=== PATIENT | female | born 1940 | race Caucasian/White ===

== ENCOUNTER 2017-04-14 17:53 | Inpatient (IN) | payer MEDICARE, SELFPAY ==
[2017-04-14] VITALS (9 sets, daily range): BP systolic 118–154; BP diastolic 68–80; PULSE 59–83; RESP 14–23; TEMP 37.3–39.2; O2SAT 92–98; BMI 18.0; BMI 17.6
--- NOTE | 2017-04-14 18:30 | EKG12_ITS ---
Test Reason : AMS Blood Pressure : / mmHG Vent. Rate : 087 BPM Atrial Rate : 087 BPM P-R Int : 138 ms QRS Dur : 068 ms QT Int : 374 ms P-R-T Axes : 075 058 076 degrees QTc Int : 450 ms Normal sinus rhythm Normal ECG Confirmed by SRI RICHARDSON, SHAHRIAR ([id number]), editor managing director SONY CARABALLO ([id number] on 04/17/2017 2:57:41 PM Referred By: ROMERO Confirmed By:SHAHRIAR FIERRO MD
--- NOTE | 2017-04-14 18:32 | RAD_ITS ---
STUDY: X-RAY CHEST REASON FOR EXAM: Female, 77 years old. Cough and fever TECHNIQUE: AP portable COMPARISON: None. FINDINGS: The lungs are clear and expanded. There is a tiny calcified granuloma in left upper lobe. There is no demonstrated pleural abnormality. Normal size heart. Normal mediastinum and santosh. Normal visualized pulmonary arteries. Mildly calcified aortic arch and descending thoracic aorta. Dorsal spine demonstrates mild scoliosis and degenerative change.. Normal visualized ribs, clavicles, and shoulders. There is no demonstrated abnormality of the visualized soft tissue structures of the upper abdomen. RAD/Chest 1 View (Portable) IMPRESSION: No acute cardiopulmonary pathology Electronically Signed: Lino Rodriguez MD at 18:59 EST , Service support ,
[2017-04-14] MEDS: 0.9% Normal Saline 1,000 ML 999 ML IV (18:41)
[2017-04-14] MEDS: Acetaminophen 500 MG Tablet 1000 MG PO (18:41)
[2017-04-14] MEDS: 0.9% Normal Saline 1,000 ML 150 ML IV (18:46)
[2017-04-14 19:01] LABS: Absolute Lymphocyte Count 1.01 X10^3/ul (0.83-4.51); Absolute Neutrophil Count 1.8 X10^3/uL (2.0-7.7); Basophil# 0.02 X10^3/uL; Basophil% 0.6 % (0-1); Eosinophil# 0.01 X10^3/uL; Eosinophils% 0.3 % (0-5); Hematocrit 44.1 % (37-47); Hemoglobin 14.9 g/dl (12.0-15.0); Lymphocyte # 1.01 X10^3/ul (4.0); Lymphocyte % 29.7 % (19-41); Mean Corp Hgb Conc 33.8 g/gl (32-36); Mean Corpuscular Hgb 31.5 pg (27.0-32.0); Mean Corpuscular Volume 93.2 fL (81-99); Monocyte# 0.57 X10^3/uL; Monocyte% 16.8 % (0-10); Neutrophil # 1.79 X10^3/uL (2.7-7.7); Neutrophil % 52.6 % (47-70); Platelet Count 125 K/mm3 (150-450); RBC Distribution Width CV 14.8 % (11.6-14.6); RBC Distribution Width SD 49.8 fl (35.1-43.9); Red Blood Count 4.73 M/mm3 (4.2-5.4); White Blood Count 3.4 K/mm3 (4.4-11.0)
[2017-04-14 19:02] LABS: POSITIVE COUNT NO; POSITIVE DIFFERENTIAL NO; POSITIVE MORPHOLOGY NO
[2017-04-14 19:07] LABS: International Normalized Ratio 1.1; Prothrombin Time (Protime)PT. 14.1 SECONDS (11.7-14.9)
[2017-04-14 19:08] LABS: Partial Thromboplast Time 28.7 Seconds (24.1-36.2)
[2017-04-14 19:16] LABS: ALB/GLOB Ratio 1.2 RATIO (0.9-2.4); AST(SGOT) 26 U/L (15-37); Alanine Aminotransfer ALT/SGPT 40 U/L (13-56); Albumin, Serum 3.5 g/dL (3.2-5.0); Alkaline Phosphatase 62 U/L (45-117); Anion Gap 6 (5-15); BUN 14 mg/dL (7-18); BUN/Creat Ratio 17.5 RATIO (10-20); Calcium,Total 7.9 mg/dL (8.5-10.1); Chloride 102 mmol/L (98-107); EST Glomerular Filtration Rate 74 mL/min (>60); Est Glom Filt Rate - Afr Amer 90 mL/min (>60); Estimated Creatinine Clearance 45.68 ml/min; Globulin 2.9 g/dL (2.2-4.2); Glucose 89 mg/dL (74-106); Protein, Total 6.4 g/dL (6.4-8.2); Sodium Level 136 mmol/L (136-145)
[2017-04-14 19:33] LABS: Lactic Acid 1.2 mmol/L (0.4-2.0)
[2017-04-14 19:39] LABS: Bacteria 0 SEEN /hpf (None Seen); Mucous, Urine 0 SEEN /hpf (<or=2+); Squamous Epithelial Cells - UA 0 SEEN /hpf (5-10); White Blood Cells 0 SEEN /hpf (0-5)
[2017-04-14 19:45] LABS: Color, Urine Yellow (Yellow); Glucose, Dipstick Normal (Normal); Ketone-Dipstick Negative (Negative); Leukocyte Esterase-Dipstick Negative /ul (Negative); Nitrite-Dipstick Negative (Negative); Occult Blood-Urine 50 /ul (Negative); Protein-Dipstick Negative (Negative); Specific Gravity, Urine 1.005 (1.002-1.030); Urine Bilirubin Dipstick Negative (Negative); Urine Clarity Sl. Cloudy (Clear); Urine Urobilinogen Normal (Normal)
[2017-04-14 20:44] LABS: Red Blood Cells-Urine 0-5 SEEN /hpf (0-5)
--- NOTE | 2017-04-14 21:00 | ED.VISSUMM ---
- ER Visit Summary Date of Service: 04/14/17 Chief Complaint: Altered mental status History of Present Illness: The patient is a 77 F whose states was fine yesterday. However family states he was she was sleeping more yesterday developed a cough and runny nose. He came home from work today and found her very confused and hard to wake up on the couch. Patient recently placed on prednisone for some ankle swelling due to rheumatoid. She is also on Enbrel. Patient notes fever today rhinorrhea cough generalized myalgias headache. No nausea vomiting diarrhea. No urinary symptoms. She is a tobacco user. She has had significant weight loss over the past few months per the . Physical Examination: 101.9 heart rate 79 respirations are 18 pulse ox 90% on room air pressure 154/80 Gen: Well-nourished well-developed frail Head: Normocephalic atraumatic Eyes: Perrl EOMI ENT: TMs clear rhinorrhea moist mucous membranes Neck: Supple no lymphadenopathy no JVD nontender CVS: Regular rate rhythm no murmurs normal S1-S2 Respiratory: No distress clear to auscultation bilaterally chest nontender dry cough Abdomen: Soft nontender nondistended normal bowel sounds no masses Back: Nontender Extremity: Nontender no edema Skin: Normal color no rash Neuro: alert disorientated patient states it is 1980 CN II-XII intact normal strength sensation reflexes gait cerebellar Test Results: EKG shows a normal sinus rhythm at a rate of 87. Chest x-ray negative. White count 3.4. Chemistries negative liver negative lactic acid 1.2. Urinalysis normal. Flu negative Emergency Department Course and Treatment: Received IV fluids and Tylenol. Clinically this patient has influenza I will send off the serum test. We will await the blood cultures as she is immunosuppressed. Impression: 1. Viral syndrome 2. Altered mental status This note was generated with [employer] dictation software. It may contain incorrect words, spelling, and punctuation that were not noted in review of the chart prior to signing ED Disposition - Plan for ED Patient: Chief Complaint: Mental Status Change Referrals: Pancho Costello MD [Primary Care Provider] -
--- NOTE | 2017-04-14 21:18 | PCM.HP.STD ---
Problem List (1) Encephalopathy Status: Acute (2) Acute febrile illness Status: Acute (3) Osteoporosis Status: Chronic (4) Rheumatoid arthritis Status: Chronic History of Present Illness Date of Admission: 04/14/17 Chief Complaint: Confusion. The patient is a 77 year old F with past medical history as mentioned above presented to the emergency room because of confusion. At this time, patient is alert and oriented ?3. According to her , he came back from work this evening and found her on the chair, obtunded, lethargic and confused. He touched her head and she was very hot but he did not check her temperature. There was no reported complete loss of consciousness or focal deficit. Patient complained of dry cough that has been going on for few days without sputum production and without other associated symptoms. She denied chest pain or shortness of breath. She denied abdominal pain, nausea or vomiting. Denied constipation or diarrhea. She denied urinary symptoms. She had a history of rheumatoid arthritis and she has been on Enbrel injections for the last 3 years. Few days ago, she went to her PCPs office who started him on tapering course of prednisone for left foot pain and swelling for presumed acute arthritis. Today, she denies any left foot pain or swelling. In the emergency room, patient was febrile, blood pressure and heart rate are stable and her pulse ox was 98% on room air. When I interviewed the patient, she was alert and oriented ?3. She was coughing and seemed to have nasal congestion. Her routine blood work was remarkable for mild leukopenia with total white blood cell count of 3400. Absolute neutrophil count is 1800. Platelet count is 125,000. Her lactic acid was normal. LFT was unremarkable. Urinalysis was clean without evidence of acute cystitis. Chest x-ray showed no acute infiltrate, consolidation or effusion. She is being admitted for acute febrile illness, likely due to viral URTI/bronchitis, encephalopathy, leukopenia and thrombocytopenia. Past Medical History Past Medical History (Chronic Problems): Chronic Problems Osteoporosis (Chronic) Rheumatoid arthritis (Chronic) Allergies No Known Allergies Allergy (Verified 04/14/17 18:00) Home Medications: Ambulatory Orders Medication Instructions Recorded Alendronate Sodium [Fosamax] 70 mg PO Q7D@0700 04/14/17 Etanercept [Enbrel] 50 mg SQ Q7D 04/14/17 Prednisone 20 mg PO DAILY 04/14/17 Surgical History: cholecystectomy Psychiatric History: No pertinent psych hx [employer] History: No pertinent [employer] history Lives: Spouse/ Significant Other Smoking Status: Current every day smoker Alcohol: None Drugs: None - *Family History Maternal History Items: No pertinent history Paternal History Items: No pertinent history Review of Systems Constitutional: Reports: Fever, Weakness, Fatigue. Denies: Anorexia, Chills Eyes: Denies: Blurred vision, Drainage, Eyelid Inflammation, Redness HEENT: Reports: Nasal Congestion. Denies: Difficulty Hearing, Dysphasia, Ear Pain, Eye Pain, Sore Throat Cardiovascular: Denies: Chest Pain, Chest Pressure, Chest Tightness, Light Headedness, Palpitations, Syncope Respiratory: Reports: Cough. Denies: Pleuritic Pain, Shortness of Breath, Sputum production, Wheezing Gastrointestinal: Denies: Abdominal Pain, Constipation, Diarrhea, Nausea, Vomiting Genitourinary: Denies: Dysuria, Frequency, Hematuria Musculoskeletal: Denies: Arm Pain, Back Pain, Foot Pain Skin: Denies: Dryness, Rash Neurological: Reports: Confusion. Denies: Balance problems, Double vision, Change in Speech, Slurred speech, Focal weakness, Headaches, Incoordination, Numbness Psychiatric: Denies: Anxiety, Depression Endocrine: Denies: Change in Body Habitus, Polydipsia VTE Information - Inpt Only VTE Present on Admission: No VTE Mechan Device Prophylaxis: None VTE Pharm Prophylaxis ordered?: Yes Patient Problems: Active and Suspected Problems Encephalopathy (Acute) Acute febrile illness (Acute) - Physical Exam General: Alert, Oriented x3, Cooperative, No apparent distress HEENT: Atraumatic, PERRLA, EOMI Oral: Moist Mucosa, No Gingival or Mucosal Lesions/ Ulcerations Neck: Supple, No JVD, Negative Carotid Bruits, Thyroid Normal Size and Texture Lungs: Clear to auscultation, No rhonchi, No wheeze, No rales, Diminished Cardiovascular: Regular rate, Regular Rhythm, Normal S1, Normal S2, No murmurs, PMI Normal Abdomen: Bowel Sounds Present, Soft, Non Tender, Non-Distended, No Hepato-splenomegaly Extremities: No clubbing, No cyanosis, No edema Skin: No rashes, No breakdown Lymphatic: No Cervical, Supraclavicular, or Inguinal Adenopathy Neurological: Cranial nerves II-XII grossly intact, Motor Exam 5/5 strength throughout Psych/Mental Status: Normal Affect, Appropriate, Alert and oriented to time, place, person, mood and affect Vital Signs Temp Pulse Resp BP Pulse Ox 99.7 F H 69 18 123/72 H 95 04/14/17 20:17 04/14/17 21:07 04/14/17 21:07 04/14/17 21:07 04/14/17 21:07 Oxygen Flow Rate (L/min) 2 Oxygen Delivery Method Room Air Weight: 105 lb Body Mass Index (BMI) 18.0 Microbiology Past 72 Hours 04/14/17 18:50 Influenza Types A,B Direct FA (JOSE) - Final Mucosa - Nose Laboratory Tests Past 24 Hrs 04/14/17 04/14/17 04/14/17 18:30 18:30 18:30 WBC 3.4 L RBC 4.73 Hgb 14.9 Hct 44.1 MCV 93.2 MCH 31.5 MCHC 33.8 RDW 14.8 H RDW Differential 49.8 H Plt Count 125 L MPV 12.0 Immature Gran % (Auto) 0.000 Neut % (Auto) 52.6 Lymph % (Auto) 29.7 [place] % (Auto) 16.8 H Eos % (Auto) 0.3 Baso % (Auto) 0.6 Absolute Neuts (auto) 1.8 L Absolute Lymphs (auto) 1.01 Total Counted Not Reportable PT 14.1 INR 1.1 APTT 28.7 Sodium 136 Potassium 4.0 Chloride 102 Carbon Dioxide 28.0 Anion Gap 6 BUN 14 Creatinine 0.80 Estim Creat Clear Calc 45.68 Est GFR (MDRD) Af Amer 90 Est GFR (MDRD) Non-Af 74 BUN/Creatinine Ratio 17.5 Glucose 89 Lactic Acid Calcium 7.9 L Total Bilirubin 0.60 AST 26 ALT 40 Alkaline Phosphatase 62 Troponin I 0.03 Total Protein 6.4 Albumin 3.5 Globulin 2.9 Albumin/Globulin Ratio 1.2 Urine Color Urine Clarity Urine pH Ur Specific [place] Urine Protein Urine Glucose (UA) Urine Ketones Urine Occult Blood Urine Nitrite Urine Bilirubin Urine Urobilinogen Ur Leukocyte Esterase Urine RBC Urine WBC Ur Squamous Epith Cells Urine Bacteria Urine Mucus 04/14/17 04/14/17 18:50 19:30 WBC RBC Hgb Hct MCV MCH MCHC RDW RDW Differential Plt Count MPV Immature Gran % (Auto) Neut % (Auto) Lymph % (Auto) [place] % (Auto) Eos % (Auto) Baso % (Auto) Absolute Neuts (auto) Absolute Lymphs (auto) Total Counted PT INR APTT Sodium Potassium Chloride Carbon Dioxide Anion Gap BUN Creatinine Estim Creat Clear Calc Est GFR (MDRD) Af Amer Est GFR (MDRD) Non-Af BUN/Creatinine Ratio Glucose Lactic Acid 1.2 Calcium Total Bilirubin AST ALT Alkaline Phosphatase Troponin I Total Protein Albumin Globulin Albumin/Globulin Ratio Urine Color Yellow Urine Clarity Sl. Cloudy Urine pH 7.0 Ur Specific [place] 1.005 Urine Protein Negative Urine Glucose (UA) Normal Urine Ketones Negative Urine Occult Blood 50 H Urine Nitrite Negative Urine Bilirubin Negative Urine Urobilinogen Normal Ur Leukocyte Esterase Negative Urine RBC 0-5 SEEN Urine WBC 0 SEEN Ur Squamous Epith Cells 0 SEEN Urine Bacteria 0 SEEN Urine Mucus 0 SEEN Clinical Impression(s) from Imaging Studies Chest X-Ray 04/14/17 18:32 IMPRESSION: No acute cardiopulmonary pathology Electronically Signed: Lino Rodriguez MD at 18:59 EST , Service support , Assessment/Plan Active and Suspected Problems Encephalopathy (Acute) Acute febrile illness (Acute) This is a 77 years old female patient presented to the medicine because of confusion and subjective fever, had a history of rheumatoid arthritis and she has been on Enbrel injections, started recently on tapering prednisone and she was found to have leukopenia, thrombocytopenia and probable viral URTI/bronchitis. #1 acute febrile illness: Probably due to viral URTI/bronchitis. Nasal swab for influenza a and B were negative. Patient is immunocompromised because she has been on Enbrel injections for with arthritis as well as tapering prednisone that was started a few days ago.) Enbrel itself can cause upper respiratory tract infection. Lactic acid was normal. Chest x-ray showed no acute infiltrate. Urinalysis without evidence of UTI/acute cystitis. Blood culture drawn. Plan: Admit to [facility] floor for observation, IV fluids, Tylenol as needed, follow blood and urine cultures, respiratory panel for viruses, repeat CBC and BMP tomorrow morning, start IV Levaquin empirically, repeat chest x-ray tomorrow morning, PT OT evaluation and treatment. #2 encephalopathy: Likely metabolic encephalopathy because of above. At this time, she is alert and oriented ?3. Resolved. #3 leukopenia/thrombocytopenia: Probably due to Enbrel. She is leukopenic but her absolute neutrophil count is 1800, no evidence of neutropenia. Plan for empiric IV Levaquin, blood cultures and urine culture as above. #4 rheumatoid arthritis: At this time, she denied any joint pain, no more left foot pain. She was started on prednisone tapering course few days ago. At this time, no indication to start her on prednisone again. Plan to resume Enbrel injections upon discharge. #5 osteoporosis: Continue weekly Fosamax. #6 DVT prophylaxis: Subcu Lovenox, monitor platelet count. This note was generated with [employer] dictation software. It may contain incorrect words, spelling, and punctuation that were not noted in checking the note before signing. Code Visit OBSV E&M: 83342 Initial observation care L2
--- NOTE | 2017-04-14 21:32 | HP.PCM_ITS ---
Problem List (1) Encephalopathy Status: Acute (2) Acute febrile illness Status: Acute (3) Osteoporosis Status: Chronic (4) Rheumatoid arthritis Status: Chronic History of Present Illness Date of Admission: 04/14/17 Chief Complaint: Confusion. The patient is a 77 year old F with past medical history as mentioned above presented to the emergency room because of confusion. At this time, patient is alert and oriented ?3. According to her , he came back from work this evening and found her on the chair, obtunded, lethargic and confused. He touched her head and she was very hot but he did not check her temperature. There was no reported complete loss of consciousness or focal deficit. Patient complained of dry cough that has been going on for few days without sputum production and without other associated symptoms. She denied chest pain or shortness of breath. She denied abdominal pain, nausea or vomiting. Denied constipation or diarrhea. She denied urinary symptoms. She had a history of rheumatoid arthritis and she has been on Enbrel injections for the last 3 years. Few days ago, she went to her PCPs office who started him on tapering course of prednisone for left foot pain and swelling for presumed acute arthritis. Today, she denies any left foot pain or swelling. In the emergency room, patient was febrile, blood pressure and heart rate are stable and her pulse ox was 98% on room air. When I interviewed the patient, she was alert and oriented ?3. She was coughing and seemed to have nasal congestion. Her routine blood work was remarkable for mild leukopenia with total white blood cell count of 3400. Absolute neutrophil count is 1800. Platelet count is 125, 000. Her lactic acid was normal. LFT was unremarkable. Urinalysis was clean without evidence of acute cystitis. Chest x-ray showed no acute infiltrate, consolidation or effusion. She is being admitted for acute febrile illness, likely due to viral URTI/bronchitis, encephalopathy, leukopenia and thrombocytopenia. Past Medical History Past Medical History (Chronic Problems): Chronic Problems Osteoporosis (Chronic) Rheumatoid arthritis (Chronic) Allergies No Known Allergies Allergy (Verified 04/14/17 18:00) Home Medications: Ambulatory Orders Medication Instructions Recorded Alendronate Sodium [Fosamax] 70 mg PO Q7D@0700 04/14/17 Etanercept [Enbrel] 50 mg SQ Q7D 04/14/17 Prednisone 20 mg PO DAILY 04/14/17 Surgical History: cholecystectomy Psychiatric History: No pertinent psych hx [employer] History: No pertinent [employer] history Lives: Spouse/ Significant Other Smoking Status: Current every day smoker Alcohol: None Drugs: None - *Family History Maternal History Items: No pertinent history Paternal History Items: No pertinent history Review of Systems Constitutional: Reports: Fever, Weakness, Fatigue. Denies: Anorexia, Chills Eyes: Denies: Blurred vision, Drainage, Eyelid Inflammation, Redness HEENT: Reports: Nasal Congestion. Denies: Difficulty Hearing, Dysphasia, Ear Pain, Eye Pain, Sore Throat Cardiovascular: Denies: Chest Pain, Chest Pressure, Chest Tightness, Light Headedness, Palpitations, Syncope Respiratory: Reports: Cough. Denies: Pleuritic Pain, Shortness of Breath, Sputum production, Wheezing Gastrointestinal: Denies: Abdominal Pain, Constipation, Diarrhea, Nausea, Vomiting Genitourinary: Denies: Dysuria, Frequency, Hematuria Musculoskeletal: Denies: Arm Pain, Back Pain, Foot Pain Skin: Denies: Dryness, Rash Neurological: Reports: Confusion. Denies: Balance problems, Double vision, Change in Speech, Slurred speech, Focal weakness, Headaches, Incoordination, Numbness Psychiatric: Denies: Anxiety, Depression Endocrine: Denies: Change in Body Habitus, Polydipsia VTE Information - Inpt Only VTE Present on Admission: No VTE Mechan Device Prophylaxis: None VTE Pharm Prophylaxis ordered?: Yes Patient Problems: Active and Suspected Problems Encephalopathy (Acute) Acute febrile illness (Acute) - Physical Exam General: Alert, Oriented x3, Cooperative, No apparent distress HEENT: Atraumatic, PERRLA, EOMI Oral: Moist Mucosa, No Gingival or Mucosal Lesions/ Ulcerations Neck: Supple, No JVD, Negative Carotid Bruits, Thyroid Normal Size and Texture Lungs: Clear to auscultation, No rhonchi, No wheeze, No rales, Diminished Cardiovascular: Regular rate, Regular Rhythm, Normal S1, Normal S2, No murmurs, PMI Normal Abdomen: Bowel Sounds Present, Soft, Non Tender, Non-Distended, No Hepato- splenomegaly Extremities: No clubbing, No cyanosis, No edema Skin: No rashes, No breakdown Lymphatic: No Cervical, Supraclavicular, or Inguinal Adenopathy Neurological: Cranial nerves II-XII grossly intact, Motor Exam 5/5 strength throughout Psych/Mental Status: Normal Affect, Appropriate, Alert and oriented to time, place, person, mood and affect Vital Signs Temp Pulse Resp BP Pulse Ox 99.7 F H 69 18 123/72 H 95 04/14/17 20:17 04/14/17 21:07 04/14/17 21:07 04/14/17 21:07 04/14/17 21:07 Oxygen Flow Rate (L/min) 2 Oxygen Delivery Method Room Air Weight: 105 lb Body Mass Index (BMI) 18.0 Microbiology Past 72 Hours 04/14/17 18:50 Influenza Types A,B Direct FA (JOSE) - Final Mucosa - Nose Laboratory Tests Past 24 Hrs 04/14/17 04/14/17 04/14/17 18:30 18:30 18:30 WBC 3.4 L RBC 4.73 Hgb 14.9 Hct 44.1 MCV 93.2 MCH 31.5 MCHC 33.8 RDW 14.8 H RDW Differential 49.8 H Plt Count 125 L MPV 12.0 Immature Gran % (Auto) 0.000 Neut % (Auto) 52.6 Lymph % (Auto) 29.7 [place] % (Auto) 16.8 H Eos % (Auto) 0.3 Baso % (Auto) 0.6 Absolute Neuts (auto) 1.8 L Absolute Lymphs (auto) 1.01 Total Counted Not Reportable PT 14.1 INR 1.1 APTT 28.7 Sodium 136 Potassium 4.0 Chloride 102 Carbon Dioxide 28.0 Anion Gap 6 BUN 14 Creatinine 0.80 Estim Creat Clear Calc 45.68 Est GFR (MDRD) Af Amer 90 Est GFR (MDRD) Non-Af 74 BUN/Creatinine Ratio 17.5 Glucose 89 Lactic Acid Calcium 7.9 L Total Bilirubin 0.60 AST 26 ALT 40 Alkaline Phosphatase 62 Troponin I 0.03 Total Protein 6.4 Albumin 3.5 Globulin 2.9 Albumin/Globulin Ratio 1.2 Urine Color Urine Clarity Urine pH Ur Specific [place] Urine Protein Urine Glucose (UA) Urine Ketones Urine Occult Blood Urine Nitrite Urine Bilirubin Urine Urobilinogen Ur Leukocyte Esterase Urine RBC Urine WBC Ur Squamous Epith Cells Urine Bacteria Urine Mucus 04/14/17 04/14/17 18:50 19:30 WBC RBC Hgb Hct MCV MCH MCHC RDW RDW Differential Plt Count MPV Immature Gran % (Auto) Neut % (Auto) Lymph % (Auto) [place] % (Auto) Eos % (Auto) Baso % (Auto) Absolute Neuts (auto) Absolute Lymphs (auto) Total Counted PT INR APTT Sodium Potassium Chloride Carbon Dioxide Anion Gap BUN Creatinine Estim Creat Clear Calc Est GFR (MDRD) Af Amer Est GFR (MDRD) Non-Af BUN/Creatinine Ratio Glucose Lactic Acid 1.2 Calcium Total Bilirubin AST ALT Alkaline Phosphatase Troponin I Total Protein Albumin Globulin Albumin/Globulin Ratio Urine Color Yellow Urine Clarity Sl. Cloudy Urine pH 7.0 Ur Specific [place] 1.005 Urine Protein Negative Urine Glucose (UA) Normal Urine Ketones Negative Urine Occult Blood 50 H Urine Nitrite Negative Urine Bilirubin Negative Urine Urobilinogen Normal Ur Leukocyte Esterase Negative Urine RBC 0-5 SEEN Urine WBC 0 SEEN Ur Squamous Epith Cells 0 SEEN Urine Bacteria 0 SEEN Urine Mucus 0 SEEN Clinical Impression(s) from Imaging Studies Chest X-Ray 04/14/17 18:32 IMPRESSION: No acute cardiopulmonary pathology Electronically Signed: Lino Rodriguez MD at 18:59 EST , Service support , Assessment/Plan Active and Suspected Problems Encephalopathy (Acute) Acute febrile illness (Acute) This is a 77 years old female patient presented to the medicine because of confusion and subjective fever, had a history of rheumatoid arthritis and she has been on Enbrel injections, started recently on tapering prednisone and she was found to have leukopenia, thrombocytopenia and probable viral URTI/ bronchitis. #1 acute febrile illness: Probably due to viral URTI/bronchitis. Nasal swab for influenza a and B were negative. Patient is immunocompromised because she has been on Enbrel injections for with arthritis as well as tapering prednisone that was started a few days ago.) Enbrel itself can cause upper respiratory tract infection. Lactic acid was normal. Chest x-ray showed no acute infiltrate. Urinalysis without evidence of UTI/acute cystitis. Blood culture drawn. Plan: Admit to [facility] floor for observation, IV fluids, Tylenol as needed, follow blood and urine cultures, respiratory panel for viruses, repeat CBC and BMP tomorrow morning, start IV Levaquin empirically, repeat chest x-ray tomorrow morning, PT OT evaluation and treatment. #2 encephalopathy: Likely metabolic encephalopathy because of above. At this time, she is alert and oriented ?3. Resolved. #3 leukopenia/thrombocytopenia: Probably due to Enbrel. She is leukopenic but her absolute neutrophil count is 1800, no evidence of neutropenia. Plan for empiric IV Levaquin, blood cultures and urine culture as above. #4 rheumatoid arthritis: At this time, she denied any joint pain, no more left foot pain. She was started on prednisone tapering course few days ago. At this time, no indication to start her on prednisone again. Plan to resume Enbrel injections upon discharge. #5 osteoporosis: Continue weekly Fosamax. #6 DVT prophylaxis: Subcu Lovenox, monitor platelet count. This note was generated with [employer] dictation software. It may contain incorrect words, spelling, and punctuation that were not noted in checking the note before signing. Code Visit OBSV E&M: 15179 Initial observation care L2
[2017-04-14] MEDS: 0.9% Normal Saline 1,000 ML 75 ML IV (21:55)
--- NOTE | 2017-04-14 23:47 | NURSING ---
Spoke with Nel, Nursing Storage Battery Tester. She is aware that order for cardiac tele is in computer. She verified that pt originally had an order for PCU but then it was changed to med-surg. Will get this order clarified when able.
[2017-04-15] VITALS (12 sets, daily range): BP systolic 141–160; BP diastolic 57–93; PULSE 70–110; RESP 16–18; TEMP 37–37.7; O2SAT 32–98
[2017-04-15] MEDS: Acetaminophen 325 MG Tablet 650 MG PO (05:30)
[2017-04-15 05:50] LABS: Absolute Lymphocyte Count 0.84 X10^3/ul (0.83-4.51); Absolute Neutrophil Count 0.8 X10^3/uL (2.0-7.7); Basophil# 0.01 X10^3/uL; Basophil% 0.5 % (0-1); Hematocrit 39.2 % (37-47); Hemoglobin 13.2 g/dl (12.0-15.0); Lymphocyte # 0.84 X10^3/ul (4.0); Lymphocyte % 39.8 % (19-41); Mean Corp Hgb Conc 33.7 g/gl (32-36); Mean Corpuscular Hgb 31.2 pg (27.0-32.0); Mean Corpuscular Volume 92.7 fL (81-99); Mean Platelet Vol. 11.1 fl (6.2-12.0); Monocyte# 0.44 X10^3/uL; Monocyte% 20.9 % (0-10); Neutrophil # 0.82 X10^3/uL (2.7-7.7); Neutrophil % 38.8 % (47-70); Platelet Count 117 K/mm3 (150-450); RBC Distribution Width CV 14.9 % (11.6-14.6); RBC Distribution Width SD 50.3 fl (35.1-43.9); Red Blood Count 4.23 M/mm3 (4.2-5.4); White Blood Count 2.1 K/mm3 (4.4-11.0)
--- NOTE | 2017-04-15 05:55 | RAD_ITS ---
STUDY: X-RAY CHEST REASON FOR EXAM: Female, 77 years old. Fever. TECHNIQUE: Single AP portable view of the chest. COMPARISON: Comparison is made with prior study dated April 14, 2017. FINDINGS: EKG electrodes are seen. Hyperinflation. Scattered calcified granulomas. There is no demonstrated pleural abnormality. Normal size heart. Normal mediastinum and santosh. Normal visualized pulmonary arteries. There is atherosclerotic calcification of the aortic arch with tortuosity. Normal visualized thoracic spine. Normal visualized ribs, clavicles, and shoulders. There is no demonstrated abnormality of the visualized soft tissue structures of the upper abdomen. RAD/Chest 1 View (Portable) IMPRESSION: Hyperinflation. No acute abnormality is seen. Electronically Signed: Pete Bustamante MD at 8:30 EST Tel [phone], Service support ,
[2017-04-15 06:05] LABS: Anion Gap 7 (5-15); BUN 13 mg/dL (7-18); BUN/Creat Ratio 18.5 RATIO (10-20); Calcium,Total 7.9 mg/dL (8.5-10.1); Chloride 107 mmol/L (98-107); EST Glomerular Filtration Rate 86 mL/min (>60); Est Glom Filt Rate - Afr Amer 104 mL/min (>60); Estimated Creatinine Clearance 33.46 ml/min; Glucose 88 mg/dL (74-106); Potassium 3.8 mmol/L (3.5-5.1); Sodium Level 139 mmol/L (136-145)
[2017-04-15 06:16] LABS: Differential Indicated SCAN CRITERIA MET; POSITIVE COUNT NO; POSITIVE DIFFERENTIAL YES; POSITIVE MORPHOLOGY NO
[2017-04-15 06:23] LABS: Differential Comment SCANNED
--- NOTE | 2017-04-15 07:15 | PN_ITS ---
Patient Problems: Active and Suspected Problems Encephalopathy (Acute) Acute febrile illness (Acute) Subjective: Patient was seen and examined. No acute events overnight. T-Max over the last 24 hours is 102.6F. States she feels better. Denied any worsening shortness of breath, chest pain or dizziness. Objective: Physical Exam General: Alert, Oriented x3, Cooperative, No apparent distress, has intermittent coughing spells HEENT: Atraumatic, PERRLA, EOMI Oral: Moist Mucosa, No Gingival or Mucosal Lesions/ Ulcerations Neck: Supple, No JVD, Negative Carotid Bruits, Thyroid Normal Size and Texture Lungs: Clear to auscultation, No rhonchi, No wheeze, No rales, Diminished Cardiovascular: Regular rate, Regular Rhythm, Normal S1, Normal S2, No murmurs, PMI Normal Abdomen: Bowel Sounds Present, Soft, Non Tender, Non-Distended, No Hepato- splenomegaly Extremities: No clubbing, No cyanosis, No edema Skin: No rashes, No breakdown Lymphatic: No Cervical, Supraclavicular, or Inguinal Adenopathy Neurological: Cranial nerves II-XII grossly intact, Motor Exam 5/5 strength throughout Psych/Mental Status: Normal Affect, Appropriate, Alert and oriented to time, place, person, mood and affect Vitals/I&O's: Vital Signs Temp Pulse Resp BP Pulse Ox 99.9 F H 78 16 141/57 H 93 04/15/17 05:18 04/15/17 05:18 04/15/17 05:18 04/15/17 05:18 04/15/17 05:18 Oxygen Delivery Method Room Air Weight: 43.6 kg Body Mass Index (BMI) 17.6 Intake and Output for Last 24 Hours 04/13/17 04/14/17 04/15/17 23:59 23:59 23:59 Intake Total 391 / 391 Balance 391 / 391 Laboratory Results 04/15/17 05:31: WBC 2.1 L, RBC 4.23, Hgb 13.2, Hct 39.2, MCV 92.7, MCH 31.2, MCHC 33.7, RDW 14.9 H, RDW Differential 50.3 H, Plt Count 117 L, MPV 11.1, Immature Gran % (Auto) 0.000, Neut % (Auto) 38.8 L, Lymph % (Auto) 39.8, [place] % (Auto) 20.9 H, Eos % (Auto) 0.0, Baso % (Auto) 0.5, Absolute Neuts (auto) 0.8 L , Absolute Lymphs (auto) 0.84, Total Counted Not Reportable, Differential Comment SCANNED 04/15/17 05:31: Sodium 139, Potassium 3.8, Chloride 107, Carbon Dioxide 25.0, Anion Gap 7, BUN 13, Creatinine 0.70, Estim Creat Clear Calc 33.46, Est GFR ( MDRD) Af Amer 104, Est GFR (MDRD) Non-Af 86, BUN/Creatinine Ratio 18.5, Glucose 88, Calcium 7.9 L Current Medications Acetaminophen (Tylenol) 650 mg PO Q6H PRN PRN PRN Reason: Fever, headache, pain Last Admin: 04/15/17 05:30 Dose: 325 mg Enoxaparin Sodium (Lovenox) 40 mg SC DAILY@1000 LATRICE Guaifenesin (Robitussin) 10 ml PO Q6H PRN PRN PRN Reason: COUGH/CONGESTION Sodium Chloride () 1,000 mls @ 75 mls/hr IV .[id number] [facility] Last Admin: 04/14/17 21:55 Dose: 75 mls/hr Levofloxacin (Levaquin) 750 mg in 150 mls @ 100 mls/hr IV Q48 [facility] Last Admin: 04/15/17 00:12 Dose: 100 mls/hr Magnesium Hydroxide (Milk Of Magnesia) 30 ml PO DAILY PRN PRN PRN Reason: Constipation Nutritional Formula (Lactose Free) (Ensure Enlive) 120 ml PO 4X/DAY [facility] Ondansetron HCl (Zofran) 4 mg IV Q8H PRN PRN PRN Reason: NAUSEA/VOMITING Sodium Chloride () 5 - 30 ml IV UD PRN PRN Reason: SALINE FLUSH Assessment/Plan Active and Suspected Problems Encephalopathy (Acute) Acute febrile illness (Acute) 77 years old female patient admitted with fever, cough and managed as viral URTI /bronchitis. 1. Fever secondary to acute influenza B, immunocompromise patient, patient is in droplet isolation, influenza screen was negative for influenza, respiratory panel showed influenza B, repeat chest x-ray shows no infiltrates, start Tamiflu , breathing treatments as needed. 2. Metabolic encephalopathy secondary to #1, resolved 3. Pancytopenia, likely related to current illness vs Enbrel, ANC 800, blood cultures are pending, will continue to monitor. 4. Rheumatoid arthritis, stable. 5. Osteoporosis, on Fosamax. 6. DVT prophylaxis- SCDs Code Visit Inpatient E&M: 72644 Subs Hosp L3
[2017-04-15] MEDS: 0.9% Normal Saline 1,000 ML 75 ML IV ×2 (08:12→23:46)
[2017-04-15] MEDS: Folic Acid 1 MG Tablet PO (09:19)
[2017-04-15] MEDS: Oseltamivir Phosphate 75 MG Capsule PO (12:32)
--- NOTE | 2017-04-15 14:20 | NURSING ---
Student nurse documentation reviewed by this RN.
[2017-04-15] MEDS: OSELTAMIVIR PHOSPHATE 6 MG/ML BOTTLE 75 MG PO (23:45)
[2017-04-16 02:59] VITALS: PULSE 84
[2017-04-16 04:28] VITALS: BP 152/74; PULSE 84; RESP 12; TEMP 37.3; O2SAT 92
[2017-04-16 06:57] LABS: Absolute Lymphocyte Count 1.17 X10^3/ul (0.83-4.51); Absolute Neutrophil Count 0.8 X10^3/uL (2.0-7.7); Basophil# 0.02 X10^3/uL; Basophil% 0.8 % (0-1); Hematocrit 39.6 % (37-47); Hemoglobin 13.8 g/dl (12.0-15.0); Lymphocyte # 1.17 X10^3/ul (4.0); Lymphocyte % 46.6 % (19-41); Mean Corp Hgb Conc 34.8 g/gl (32-36); Mean Corpuscular Hgb 31.8 pg (27.0-32.0); Mean Corpuscular Volume 91.2 fL (81-99); Monocyte# 0.54 X10^3/uL; Monocyte% 21.5 % (0-10); Neutrophil # 0.78 X10^3/uL (2.7-7.7); Neutrophil % 31.1 % (47-70); Platelet Count 107 K/mm3 (150-450); RBC Distribution Width CV 14.8 % (11.6-14.6); RBC Distribution Width SD 47.9 fl (35.1-43.9); Red Blood Count 4.34 M/mm3 (4.2-5.4); White Blood Count 2.5 K/mm3 (4.4-11.0)
[2017-04-16 07:03] LABS: Differential Indicated SCAN CRITERIA MET; POSITIVE COUNT NO; POSITIVE DIFFERENTIAL YES; POSITIVE MORPHOLOGY NO
[2017-04-16 07:22] LABS: Anion Gap 9 (5-15); BUN 10 mg/dL (7-18); Calcium,Total 8.1 mg/dL (8.5-10.1); Chloride 102 mmol/L (98-107); Creatinine, Serum 0.56 mg/dL (0.55-1.02); EST Glomerular Filtration Rate 113 mL/min (>60); Est Glom Filt Rate - Afr Amer 137 mL/min (>60); Estimated Creatinine Clearance 33.46 ml/min; Glucose 93 mg/dL (74-106); Potassium 3.4 mmol/L (3.5-5.1); Sodium Level 135 mmol/L (136-145)
[2017-04-16 07:32] LABS: Platelet Estimate SLT DEC (ADEQ)
[2017-04-16 07:33] LABS: Platelet Morphology LARGE
[2017-04-16 08:42] VITALS: BP 143/85; PULSE 66; RESP 18; TEMP 36.9; O2SAT 93
--- NOTE | 2017-04-16 08:53 | PCM.DC ---
- Discharge Diagnoses Current Active Problems: Current Active and Chronic Problems Encephalopathy (Acute) Acute febrile illness (Acute) Osteoporosis (Chronic) Rheumatoid arthritis (Chronic) Reason(s) for Visit for Discharge Instructions: fever, confusion You will use the following diet at home:: Regular Your food should be the consistency of: Regular Your liquids should be the consistency of: Regular/Thin Discharge Activity: Return to Normal Activity Allergies/Adverse Reactions: Allergies No Known Allergies Allergy (Verified 04/14/17 18:00) Medications to take at Discharge Alendronate Sodium [Fosamax] 70 mg PO Q7D@0700 04/14/17 Etanercept [Enbrel] 50 mg SQ Q7D 04/14/17 Folic Acid 1 mg PO DAILY 04/14/17 Methotrexate 8 tab QWEEK 04/14/17 Acetaminophen [Tylenol Tablet] 650 mg PO Q6H PRN PRN tablet 04/16/17 Ensure Enlive 120 ml PO 4X/DAY #100 liquid 04/16/17 Oseltamivir Phosphate [Tamiflu Susp] 75 mg PO BID #8 bottle 04/16/17 The following prescriptions were given: Oseltamivir Phosphate [Tamiflu Susp] 75 mg PO BID #8 bottle Ensure Enlive 120 ml PO 4X/DAY #100 liquid Primary Care Physician: Pancho Costello MD [Primary Care Provider] - Please follow up with your Primary Care Physician in: within 2 weeks Proposed Discharge Date: 04/16/17
[2017-04-16 08:56] VITALS: PULSE 64; O2SAT 93
--- NOTE | 2017-04-16 08:56 | DS.PCM_ITS ---
Discharge Date and Diagnosis - Problem List Patient Problems: Active and Suspected Problems Encephalopathy (Acute) Acute febrile illness (Acute) Date of Admission: 04/14/17 Date of Discharge: 04/16/17 - Primary Discharge Diagnosis Active and Suspected Problems Encephalopathy (Acute) Acute Influenza A - Secondary Discharge Diagnosis Chronic Problems Osteoporosis (Chronic) Rheumatoid arthritis (Chronic) Hospital Course and Treatment Imaging Results: Clinical Impression(s) from Imaging Studies Chest X-Ray 04/14/17 18:32 IMPRESSION: No acute cardiopulmonary pathology Electronically Signed: Lino Rodriguez MD at 18:59 EST , Service support , Chest X-Ray 04/15/17 05:55 IMPRESSION: Hyperinflation. No acute abnormality is seen. Electronically Signed: Pete Bustamante MD at 8:30 EST Tel [phone], Service support , None Operations: None Procedures: None Summary of Care Provided: 77 years old female patient admitted with fever, confusion, cough, running nose and managed as acute influenza B. Patient was found in the ED to have a temperature of 101.9F. 1. Fever secondary to acute Influenza B, patient is immunocompromised because history of RA, on Enbrel, methotrexate and recently completed 1 week of steroids. Patient was managed in droplet isolation, influenza screen was negative for influenza, but respiratory panel showed influenza B, repeat chest x -ray shows no infiltrates, started on Tamiflu, breathing treatments as needed, she improved and was discharged. 2. Metabolic encephalopathy secondary to #1, resolved 3. Pancytopenia,ANC was 1800 on admission and later 800. Patient was advised to follow-up with PCP to have CBCD done within 1 week. 4. Rheumatoid arthritis, continue on home meds 5. Osteoporosis, on Fosamax. Discharge Diet: No Restrictions Discharge Activity: Return to Normal Activity Home Medications: Medications to take at Discharge Alendronate Sodium [Fosamax] 70 mg PO Q7D@0700 04/14/17 Etanercept [Enbrel] 50 mg SQ Q7D 04/14/17 Folic Acid 1 mg PO DAILY 04/14/17 Methotrexate 8 tab QWEEK 04/14/17 Acetaminophen [Tylenol Tablet] 650 mg PO Q6H PRN PRN tablet 04/16/17 Ensure Enlive 120 ml PO 4X/DAY #100 liquid 04/16/17 Oseltamivir Phosphate [Tamiflu Susp] 75 mg PO BID #8 bottle 04/16/17 Following Prescrptions Were Given to Patient: Oseltamivir Phosphate [Tamiflu Susp] 75 mg PO BID #8 bottle Ensure Enlive 120 ml PO 4X/DAY #100 liquid Primary Care Physician: Pancho Costello MD [Primary Care Provider] - Please follow up with your Primary Care Physician in: within 2 weeks Disposition: Home Minutes spent on discharge:: 25 Patient Condition:: Stable Meaningful Use Info Meaningful Use Diagnoses (Choose all that apply): None applicable Code Visit Inpatient E&M: 79013 Disch Hosp
[2017-04-16] MEDS: Folic Acid 1 MG Tablet PO (08:57)
--- NOTE | 2017-04-16 09:45 | CASEMGMT ---
See RN CM assessment link. Pt states she is independent, no DME use. Plan is to return home with 's support. Konrad PACHECO RN ACM
--- NOTE | 2017-04-16 10:57 | NURSING ---
unable to find the tamiflu that was sent [place] previously[place] [facility] [place], she returned call but [place] [facility] [place] not return call at this time as she is probably sleeping. pharmacy notified to send second bottle
[2017-04-16 11:00] VITALS: PULSE 67
[2017-04-16] MEDS: OSELTAMIVIR PHOSPHATE 6 MG/ML BOTTLE 75 MG PO (13:20)
[2017-04-16 14:45] VITALS: BP 154/74; PULSE 86; RESP 16; TEMP 37; O2SAT 93
== END 2017-04-16 16:48 | disposition home or self-care (01) | DRG 193 ==
LOC: ED 19:45 → PCU 21:25 → MS3 22:03 → PCU 04-15 08:47 → MS3 04-15 08:52
PROVIDERS: Admitting Provider Hospitalist; Emergency Provider Emergency Medicine; Family Provider Family Medicine; PCP Family Medicine; Visit Provider Internal Medicine
DX: J10.1 Influenza due to other identified influenza virus with other respiratory manifestations (principal); D61.811 Other drug-induced pancytopenia; M06.9 Rheumatoid arthritis, unspecified; J10.81 Influenza due to other identified influenza virus with encephalopathy; F17.200 Nicotine dependence, unspecified, uncomplicated; M81.0 Age-related osteoporosis without current pathological fracture; Z79.83 Long term (current) use of bisphosphonates
CPT/HCPCS: 36415; 71045; 80048; 80053; 81001; 83605; 84484; 85025; 85610; 85730; 87040; 87086; 87633; 87804; 93005; 97162; 97165; 97802; 99285; 99406; J7030; A4216

== ENCOUNTER → 2017-11-20 09:52 | Outpatient (CLI) | payer MEDICARE, SELFPAY ==
[2017-11-20 12:39] LABS: Absolute Lymphocyte Count 2.48 X10^3/ul (0.83-4.51); Absolute Neutrophil Count 2.9 X10^3/uL (2.0-7.7); Basophil# 0.03 X10^3/uL; Basophil% 0.5 % (0-1); Eosinophil# 0.18 X10^3/uL; Eosinophils% 2.9 % (0-5); Hematocrit 46.3 % (37-47); Hemoglobin 15.3 g/dl (12.0-15.0); Lymphocyte # 2.48 X10^3/ul (4.0); Lymphocyte % 40.5 % (19-41); Mean Corpuscular Hgb 31.4 pg (27.0-32.0); Mean Corpuscular Volume 95.1 fL (81-99); Mean Platelet Vol. 11.2 fl (6.2-12.0); Monocyte% 8.2 % (0-10); Neutrophil # 2.92 X10^3/uL (2.7-7.7); Neutrophil % 47.7 % (47-70); Platelet Count 175 K/mm3 (150-450); RBC Distribution Width CV 13.9 % (11.6-14.6); RBC Distribution Width SD 47.9 fl (35.1-43.9); Red Blood Count 4.87 M/mm3 (4.2-5.4); White Blood Count 6.1 K/mm3 (4.4-11.0)
[2017-11-20 12:40] LABS: POSITIVE COUNT NO; POSITIVE DIFFERENTIAL NO; POSITIVE MORPHOLOGY NO
[2017-11-20 12:49] LABS: ALB/GLOB Ratio 1.1 RATIO (0.9-2.4); AST(SGOT) 13 U/L (15-37); Alanine Aminotransfer ALT/SGPT 22 U/L (13-56); Albumin, Serum 3.8 g/dL (3.2-5.0); Alkaline Phosphatase 69 U/L (45-117); Anion Gap 5 (5-15); BUN 17 mg/dL (7-18); BUN/Creat Ratio 19.9 RATIO (10-20); Calcium,Total 9.6 mg/dL (8.5-10.1); Chloride 108 mmol/L (98-107); Creatinine, Serum 0.86 mg/dL (0.55-1.02); EST Glomerular Filtration Rate 69 mL/min (>60); Est Glom Filt Rate - Afr Amer 83 mL/min (>60); Globulin 3.5 g/dL (2.2-4.2); Glucose 106 mg/dL (74-106); Potassium 4.8 mmol/L (3.5-5.1); Protein, Total 7.3 g/dL (6.4-8.2); Sodium Level 142 mmol/L (136-145)
[2017-11-24 11:51] LABS: CCP IgG Antibodies > 250 units (0-19); HEPATITIS B SURFACE AG Negative (Negative); Hep B Surface Antibodies Non Reactive (.); Hep C Antibodies <0.1 s/co ratio (0.0-0.9)
== END ==
PROVIDERS: Family Provider Family Medicine; PCP Family Medicine; Referring Provider Internal Medicine Rheumatology; Visit Provider Internal Medicine Rheumatology
DX: M05.79 Rheumatoid arthritis with rheumatoid factor of multiple sites without organ or systems involvement (principal); M81.0 Age-related osteoporosis without current pathological fracture; Z79.899 Other long term (current) drug therapy
CPT/HCPCS: 36415; 80053; 85025; 86200; 86431; 86706; 86803; 87340

== ENCOUNTER → 2018-03-15 09:09 | Outpatient (CLI) | payer MEDICARE, SELFPAY ==
[2018-03-15 10:20] LABS: Absolute Lymphocyte Count 1.79 X10^3/ul (0.83-4.51); Absolute Neutrophil Count 2.6 X10^3/uL (2.0-7.7); Basophil# 0.01 X10^3/uL; Basophil% 0.2 % (0-1); Eosinophil# 0.12 X10^3/uL; Eosinophils% 2.4 % (0-5); Hematocrit 44.5 % (37-47); Lymphocyte # 1.79 X10^3/ul (4.0); Lymphocyte % 35.7 % (19-41); Mean Corp Hgb Conc 33.7 g/gl (32-36); Mean Corpuscular Hgb 31.8 pg (27.0-32.0); Mean Corpuscular Volume 94.5 fL (81-99); Mean Platelet Vol. 11.4 fl (6.2-12.0); Neutrophil # 2.58 X10^3/uL (2.7-7.7); Neutrophil % 51.5 % (47-70); Platelet Count 162 K/mm3 (150-450); RBC Distribution Width SD 46.1 fl (35.1-43.9); Red Blood Count 4.71 M/mm3 (4.2-5.4)
[2018-03-15 10:21] LABS: POSITIVE COUNT NO; POSITIVE DIFFERENTIAL NO; POSITIVE MORPHOLOGY NO
[2018-03-15 10:34] LABS: ALB/GLOB Ratio 1.1 RATIO (0.9-2.4); AST(SGOT) 19 U/L (15-37); Alanine Aminotransfer ALT/SGPT 20 U/L (13-56); Albumin, Serum 3.7 g/dL (3.2-5.0); Alkaline Phosphatase 71 U/L (45-117); Anion Gap 5 (5-15); BUN 17 mg/dL (7-18); BUN/Creat Ratio 21.4 RATIO (10-20); Calcium,Total 9.1 mg/dL (8.5-10.1); Chloride 109 mmol/L (98-107); EST Glomerular Filtration Rate 75 mL/min (>60); Est Glom Filt Rate - Afr Amer 90 mL/min (>60); Globulin 3.3 g/dL (2.2-4.2); Glucose 104 mg/dL (74-106); Potassium 4.2 mmol/L (3.5-5.1); Sodium Level 141 mmol/L (136-145)
== END ==
PROVIDERS: Family Provider Family Medicine; PCP Family Medicine; Referring Provider Internal Medicine Rheumatology; Visit Provider Internal Medicine Rheumatology
DX: M06.09 Rheumatoid arthritis without rheumatoid factor, multiple sites (principal); M81.0 Age-related osteoporosis without current pathological fracture; J44.9 Chronic obstructive pulmonary disease, unspecified; I10 Essential (primary) hypertension; K57.90 Diverticulosis of intestine, part unspecified, without perforation or abscess without bleeding; N20.0 Calculus of kidney; Z79.899 Other long term (current) drug therapy
CPT/HCPCS: 36415; 80053; 85025

== ENCOUNTER → 2018-06-07 | Outpatient (CLI) | payer MEDICARE, SELFPAY ==
[2017-04-14 21:57] VITALS: BMI 17.6
[2018-06-07 13:59] LABS: Absolute Lymphocyte Count 3.02 X10^3/ul (0.83-4.51); Absolute Neutrophil Count 2.6 X10^3/uL (2.0-7.7); Basophil# 0.02 X10^3/uL; Basophil% 0.3 % (0-1); Eosinophil# 0.14 X10^3/uL; Eosinophils% 2.2 % (0-5); Hematocrit 45.8 % (37-47); Hemoglobin 15.6 g/dl (12.0-15.0); Lymphocyte # 3.02 X10^3/ul (4.0); Mean Corp Hgb Conc 34.1 g/gl (32-36); Mean Corpuscular Hgb 31.6 pg (27.0-32.0); Mean Corpuscular Volume 92.7 fL (81-99); Mean Platelet Vol. 11.4 fl (6.2-12.0); Monocyte# 0.51 X10^3/uL; Monocyte% 8.1 % (0-10); Neutrophil # 2.59 X10^3/uL (2.7-7.7); Neutrophil % 41.2 % (47-70); Platelet Count 178 K/mm3 (150-450); RBC Distribution Width CV 14.7 % (11.6-14.6); RBC Distribution Width SD 47.5 fl (35.1-43.9); Red Blood Count 4.94 M/mm3 (4.2-5.4); White Blood Count 6.3 K/mm3 (4.4-11.0)
[2018-06-07 14:16] LABS: POSITIVE COUNT NO; POSITIVE DIFFERENTIAL NO; POSITIVE MORPHOLOGY NO
[2018-06-07 14:26] LABS: ALB/GLOB Ratio 1.2 RATIO (0.9-2.4); AST(SGOT) 20 U/L (15-37); Alanine Aminotransfer ALT/SGPT 21 U/L (13-56); Alkaline Phosphatase 71 U/L (45-117); Anion Gap 5 (5-15); BUN 16 mg/dL (7-18); BUN/Creat Ratio 20.1 RATIO (10-20); Calcium,Total 9.6 mg/dL (8.5-10.1); Chloride 107 mmol/L (98-107); EST Glomerular Filtration Rate 74 mL/min (>60); Est Glom Filt Rate - Afr Amer 90 mL/min (>60); Globulin 3.3 g/dL (2.2-4.2); Glucose 94 mg/dL (74-106); Protein, Total 7.3 g/dL (6.4-8.2); Sodium Level 140 mmol/L (136-145)
== END | disposition home or self-care (01) ==
LOC: MTLAB 11:33
PROVIDERS: Family Provider Family Medicine; PCP Family Medicine; Referring Provider Internal Medicine Rheumatology; Visit Provider Internal Medicine Rheumatology
DX: M06.09 Rheumatoid arthritis without rheumatoid factor, multiple sites (principal); M81.0 Age-related osteoporosis without current pathological fracture; J44.9 Chronic obstructive pulmonary disease, unspecified; I10 Essential (primary) hypertension; K57.90 Diverticulosis of intestine, part unspecified, without perforation or abscess without bleeding; N20.0 Calculus of kidney; Z79.899 Other long term (current) drug therapy
CPT/HCPCS: 36415; 80053; 85025

== ENCOUNTER → 2018-08-30 | Outpatient (CLI) | payer MEDICARE, SELFPAY ==
[2017-04-14 21:57] VITALS: BMI 17.6
[2018-08-30 12:16] LABS: Absolute Lymphocyte Count 2.89 X10^3/uL (0.83-4.51); Absolute Neutrophil Count 2.6 X10^3/uL (2.0-7.7); Basophil# 0.04 X10^3/uL; Basophil% 0.6 % (0-1); Eosinophil# 0.16 X10^3/uL; Eosinophils% 2.6 % (0-5); Hematocrit 45.6 % (37-47); Hemoglobin 15.3 g/dL (12.0-15.0); Lymphocyte # 2.89 X10^3/ul (4.0); Lymphocyte % 46.3 % (19-41); Mean Corp Hgb Conc 33.6 g/dL (32-36); Mean Corpuscular Hgb 32.3 pg (27.0-32.0); Mean Corpuscular Volume 96.4 fL (81-99); Mean Platelet Vol. 11.9 fl (6.2-12.0); Monocyte# 0.56 X10^3/uL; NRBC Flagged by Analyzer 0 % (0-5); Neutrophil # 2.57 X10^3/uL (2.7-7.7); Neutrophil % 41.2 % (47-70); Platelet Count 181 K/mm3 (150-450); RBC Distribution Width CV 13.6 % (11.6-14.6); Red Blood Count 4.73 M/mm3 (4.2-5.4); White Blood Count 6.2 K/mm3 (4.4-11.0)
[2018-08-30 12:37] LABS: ALB/GLOB Ratio 1.1 RATIO (0.9-2.4); AST(SGOT) 18 U/L (15-37); Alanine Aminotransfer ALT/SGPT 21 U/L (13-56); Albumin, Serum 3.6 g/dL (3.2-5.0); Alkaline Phosphatase 72 U/L (45-117); Anion Gap 6 (5-15); BUN 23 mg/dL (7-18); BUN/Creat Ratio 25.1 RATIO (10-20); Calcium,Total 9.1 mg/dL (8.5-10.1); Chloride 108 mmol/L (98-107); Creatinine, Serum 0.92 mg/dL (0.55-1.02); EST Glomerular Filtration Rate 63 mL/min (>60); Est Glom Filt Rate - Afr Amer 77 mL/min (>60); Globulin 3.3 g/dL (2.2-4.2); Glucose 94 mg/dL (74-106); Potassium 4.3 mmol/L (3.5-5.1); Protein, Total 6.9 g/dL (6.4-8.2); Sodium Level 144 mmol/L (136-145)
== END | disposition home or self-care (01) ==
LOC: MTLAB 10:28
PROVIDERS: Family Provider Family Medicine; PCP Family Medicine; Referring Provider Internal Medicine Rheumatology; Visit Provider Internal Medicine Rheumatology
DX: M06.012 Rheumatoid arthritis without rheumatoid factor, left shoulder (principal); M81.0 Age-related osteoporosis without current pathological fracture; J44.9 Chronic obstructive pulmonary disease, unspecified; I10 Essential (primary) hypertension; K57.90 Diverticulosis of intestine, part unspecified, without perforation or abscess without bleeding; Z79.899 Other long term (current) drug therapy
CPT/HCPCS: 36415; 80053; 85025

== ENCOUNTER → 2018-11-26 | Outpatient (CLI) | payer MEDICARE, SELFPAY ==
[2017-04-14 21:57] VITALS: BMI 17.6
[2018-11-26 13:05] LABS: ALB/GLOB Ratio 1.2 RATIO (0.9-2.4); AST(SGOT) 15 U/L (15-37); Absolute Lymphocyte Count 2.78 X10^3/uL (0.83-4.51); Absolute Neutrophil Count 3.4 X10^3/uL (2.0-7.7); Alanine Aminotransfer ALT/SGPT 21 U/L (13-56); Albumin, Serum 3.9 g/dL (3.2-5.0); Alkaline Phosphatase 67 U/L (45-117); Anion Gap 5 (5-15); BUN 18 mg/dL (7-18); BUN/Creat Ratio 19.2 RATIO (10-20); Basophil# 0.05 X10^3/uL; Basophil% 0.7 % (0-1); Calcium,Total 9.7 mg/dL (8.5-10.1); Chloride 105 mmol/L (98-107); Creatinine, Serum 0.94 mg/dL (0.55-1.02); EST Glomerular Filtration Rate 62 mL/min (>60); Eosinophil# 0.12 X10^3/uL; Eosinophils% 1.8 % (0-5); Est Glom Filt Rate - Afr Amer 75 mL/min (>60); Globulin 3.2 g/dL (2.2-4.2); Glucose 96 mg/dL (74-106); Hematocrit 47.7 % (37-47); Hemoglobin 15.8 g/dL (12.0-15.0); Lymphocyte # 2.78 X10^3/ul (4.0); Lymphocyte % 41.3 % (19-41); Mean Corp Hgb Conc 33.1 g/dL (32-36); Mean Corpuscular Hgb 31.3 pg (27.0-32.0); Mean Corpuscular Volume 94.6 fL (81-99); Mean Platelet Vol. 11.9 fl (6.2-12.0); Monocyte# 0.38 X10^3/uL; Monocyte% 5.6 % (0-10); NRBC Flagged by Analyzer 0 % (0-5); Neutrophil # 3.38 X10^3/uL (2.7-7.7); Neutrophil % 50.3 % (47-70); Platelet Count 182 K/mm3 (150-450); Potassium 4.2 mmol/L (3.5-5.1); Protein, Total 7.1 g/dL (6.4-8.2); RBC Distribution Width CV 13.4 % (11.6-14.6); RBC Distribution Width SD 46.3 fl (35.1-43.9); Red Blood Count 5.04 M/mm3 (4.2-5.4); Sodium Level 137 mmol/L (136-145); White Blood Count 6.7 K/mm3 (4.4-11.0)
== END | disposition home or self-care (01) ==
LOC: MTLAB 10:17
PROVIDERS: Family Provider Family Medicine; PCP Family Medicine; Referring Provider Internal Medicine Rheumatology; Visit Provider Internal Medicine Rheumatology
DX: M06.012 Rheumatoid arthritis without rheumatoid factor, left shoulder (principal); M81.0 Age-related osteoporosis without current pathological fracture; J44.9 Chronic obstructive pulmonary disease, unspecified; I10 Essential (primary) hypertension; K57.90 Diverticulosis of intestine, part unspecified, without perforation or abscess without bleeding; N20.0 Calculus of kidney; Z79.899 Other long term (current) drug therapy
CPT/HCPCS: 36415; 80053; 85025

== ENCOUNTER → 2019-02-21 11:03 | Outpatient (CLI) | payer MEDICARE, SELFPAY ==
[2017-04-14 21:57] VITALS: BMI 17.6
[2019-02-21 13:04] LABS: Absolute Lymphocyte Count 2.01 X10^3/uL (0.83-4.51); Absolute Neutrophil Count 3.3 X10^3/uL (2.0-7.7); Basophil# 0.03 X10^3/uL; Basophil% 0.5 % (0-1); Eosinophil# 0.09 X10^3/uL; Eosinophils% 1.5 % (0-5); Hematocrit 45.1 % (37-47); Hemoglobin 14.9 g/dL (12.0-15.0); Lymphocyte # 2.01 X10^3/ul (4.0); Lymphocyte % 34.5 % (19-41); Mean Corpuscular Hgb 31.1 pg (27.0-32.0); Mean Corpuscular Volume 94.2 fL (81-99); Mean Platelet Vol. 11.6 fl (6.2-12.0); Monocyte# 0.41 X10^3/uL; NRBC Flagged by Analyzer 0 % (0-5); Neutrophil # 3.28 X10^3/uL (2.7-7.7); Neutrophil % 56.3 % (47-70); Platelet Count 177 K/mm3 (150-450); RBC Distribution Width CV 13.5 % (11.6-14.6); RBC Distribution Width SD 46.7 fl (35.1-43.9); Red Blood Count 4.79 M/mm3 (4.2-5.4); White Blood Count 5.8 K/mm3 (4.4-11.0)
[2019-02-21 13:29] LABS: ALB/GLOB Ratio 1.2 RATIO (0.9-2.4); AST(SGOT) 24 U/L (15-37); Alanine Aminotransfer ALT/SGPT 29 U/L (13-56); Albumin, Serum 3.9 g/dL (3.2-5.0); Alkaline Phosphatase 76 U/L (45-117); Anion Gap 7 (5-15); BUN 18 mg/dL (7-18); BUN/Creat Ratio 20.3 RATIO (10-20); Calcium,Total 9.8 mg/dL (8.5-10.1); Chloride 107 mmol/L (98-107); Creatinine, Serum 0.88 mg/dL (0.55-1.02); EST Glomerular Filtration Rate 66 mL/min (>60); Est Glom Filt Rate - Afr Amer 80 mL/min (>60); Globulin 3.3 g/dL (2.2-4.2); Glucose 104 mg/dL (74-106); Potassium 4.1 mmol/L (3.5-5.1); Protein, Total 7.2 g/dL (6.4-8.2); Sodium Level 140 mmol/L (136-145)
== END ==
PROVIDERS: Family Provider Family Medicine; PCP Family Medicine; Referring Provider Internal Medicine Rheumatology; Visit Provider Internal Medicine Rheumatology
DX: M06.012 Rheumatoid arthritis without rheumatoid factor, left shoulder (principal); M81.0 Age-related osteoporosis without current pathological fracture; J44.9 Chronic obstructive pulmonary disease, unspecified; I10 Essential (primary) hypertension; K57.90 Diverticulosis of intestine, part unspecified, without perforation or abscess without bleeding; N20.0 Calculus of kidney; Z79.899 Other long term (current) drug therapy
CPT/HCPCS: 36415; 80053; 85025

== ENCOUNTER → 2019-05-13 | Outpatient (CLI) | payer MEDICARE, SELFPAY ==
[2019-05-13 17:35] LABS: Absolute Lymphocyte Count 2.99 X10^3/uL (0.83-4.51); Basophil# 0.03 X10^3/uL; Basophil% 0.4 % (0-1); Eosinophils% 2.9 % (0-5); Hematocrit 44.8 % (37-47); Hemoglobin 14.8 g/dL (12.0-15.0); Lymphocyte # 2.99 X10^3/ul (4.0); Mean Corpuscular Hgb 31.4 pg (27.0-32.0); Mean Corpuscular Volume 94.9 fL (81-99); Mean Platelet Vol. 11.4 fl (6.2-12.0); Monocyte# 0.69 X10^3/uL; Monocyte% 9.9 % (0-10); NRBC Flagged by Analyzer 0 % (0-5); Neutrophil # 3.03 X10^3/uL (2.7-7.7); Neutrophil % 43.5 % (47-70); Platelet Count 212 K/mm3 (150-450); RBC Distribution Width SD 47.8 fl (35.1-43.9); Red Blood Count 4.72 M/mm3 (4.2-5.4)
[2019-05-13 17:58] LABS: ALB/GLOB Ratio 1.2 RATIO (0.9-2.4); AST(SGOT) 15 U/L (15-37); Alanine Aminotransfer ALT/SGPT 29 U/L (13-56); Albumin, Serum 3.7 g/dL (3.2-5.0); Alkaline Phosphatase 74 U/L (45-117); Anion Gap 5 (5-15); BUN 24 mg/dL (7-18); BUN/Creat Ratio 28.3 RATIO (10-20); Calcium,Total 9.1 mg/dL (8.5-10.1); Chloride 106 mmol/L (98-107); Creatinine, Serum 0.85 mg/dL (0.55-1.02); EST Glomerular Filtration Rate 69 mL/min (>60); Est Glom Filt Rate - Afr Amer 84 mL/min (>60); Globulin 3.2 g/dL (2.2-4.2); Glucose 86 mg/dL (74-106); Potassium 3.9 mmol/L (3.5-5.1); Protein, Total 6.9 g/dL (6.4-8.2); Sodium Level 140 mmol/L (136-145)
== END | disposition home or self-care (01) ==
LOC: MTLAB 14:46
PROVIDERS: PCP Family Medicine; Referring Provider Internal Medicine Rheumatology; Visit Provider Internal Medicine Rheumatology
DX: M06.00 Rheumatoid arthritis without rheumatoid factor, unspecified site (principal); M81.0 Age-related osteoporosis without current pathological fracture; J44.9 Chronic obstructive pulmonary disease, unspecified; I10 Essential (primary) hypertension; K57.90 Diverticulosis of intestine, part unspecified, without perforation or abscess without bleeding; N20.0 Calculus of kidney; Z79.899 Other long term (current) drug therapy
CPT/HCPCS: 36415; 80053; 85025

== ENCOUNTER → 2019-08-15 | Outpatient (CLI) | payer MEDICARE, SELFPAY ==
[2017-04-14 21:57] VITALS: BMI 17.6
[2019-08-15 09:50] LABS: Absolute Lymphocyte Count 2.46 X10^3/uL (0.83-4.51); Absolute Neutrophil Count 3.1 X10^3/uL (2.0-7.7); Basophil# 0.05 X10^3/uL; Basophil% 0.8 % (0-1); Eosinophil# 0.24 X10^3/uL; Eosinophils% 3.7 % (0-5); Hematocrit 47.7 % (37-47); Hemoglobin 15.7 g/dL (12.0-15.0); Lymphocyte # 2.46 X10^3/ul (4.0); Lymphocyte % 38.4 % (19-41); Mean Corp Hgb Conc 32.9 g/dL (32-36); Mean Corpuscular Hgb 31.2 pg (27.0-32.0); Mean Corpuscular Volume 94.8 fL (81-99); Mean Platelet Vol. 10.8 fl (6.2-12.0); Monocyte# 0.56 X10^3/uL; Monocyte% 8.7 % (0-10); NRBC Flagged by Analyzer 0 % (0-5); Neutrophil # 3.09 X10^3/uL (2.7-7.7); Neutrophil % 48.2 % (47-70); Platelet Count 190 K/mm3 (150-450); RBC Distribution Width SD 44.1 fl (35.1-43.9); Red Blood Count 5.03 M/mm3 (4.2-5.4); White Blood Count 6.4 K/mm3 (4.4-11.0)
[2019-08-15 10:14] LABS: AST(SGOT) 16 U/L (15-37); Alanine Aminotransfer ALT/SGPT 17 U/L (13-56); Albumin, Serum 3.8 g/dL (3.2-5.0); Alkaline Phosphatase 74 U/L (45-117); Anion Gap 6 (5-15); BUN 18 mg/dL (7-18); BUN/Creat Ratio 19.4 RATIO (10-20); Calcium,Total 9.1 mg/dL (8.5-10.1); Chloride 106 mmol/L (98-107); Creatinine, Serum 0.93 mg/dL (0.55-1.02); EST Glomerular Filtration Rate 62 mL/min (>60); Est Glom Filt Rate - Afr Amer 75 mL/min (>60); Globulin 3.7 g/dL (2.2-4.2); Glucose 105 mg/dL (74-106); Protein, Total 7.5 g/dL (6.4-8.2); Sodium Level 140 mmol/L (136-145)
== END | disposition home or self-care (01) ==
LOC: MTLAB 08:52
PROVIDERS: PCP Family Medicine; Referring Provider Internal Medicine Rheumatology; Visit Provider Internal Medicine Rheumatology
DX: M06.00 Rheumatoid arthritis without rheumatoid factor, unspecified site (principal); M81.0 Age-related osteoporosis without current pathological fracture; J44.9 Chronic obstructive pulmonary disease, unspecified; I10 Essential (primary) hypertension; K57.90 Diverticulosis of intestine, part unspecified, without perforation or abscess without bleeding; N20.0 Calculus of kidney; Z79.899 Other long term (current) drug therapy
CPT/HCPCS: 36415; 80053; 85025

== ENCOUNTER → 2019-11-10 | Outpatient (CLI) | payer MEDICARE, SELFPAY ==
[2017-04-14 21:57] VITALS: BMI 17.6
[2019-11-10 15:19] LABS: Absolute Lymphocyte Count 3.14 X10^3/uL (0.83-4.51); Absolute Neutrophil Count 3.5 X10^3/uL (2.0-7.7); Basophil# 0.04 X10^3/uL; Basophil% 0.5 % (0-1); Eosinophil# 0.17 X10^3/uL; Eosinophils% 2.3 % (0-5); Hematocrit 46.6 % (37-47); Hemoglobin 15.2 g/dL (12.0-15.0); Lymphocyte # 3.14 X10^3/ul (4.0); Lymphocyte % 41.6 % (19-41); Mean Corp Hgb Conc 32.6 g/dL (32-36); Mean Corpuscular Hgb 30.4 pg (27.0-32.0); Mean Corpuscular Volume 93.2 fL (81-99); Mean Platelet Vol. 11.8 fl (6.2-12.0); Monocyte# 0.71 X10^3/uL; Monocyte% 9.4 % (0-10); NRBC Flagged by Analyzer 0 % (0-5); Neutrophil # 3.47 X10^3/uL (2.7-7.7); Neutrophil % 45.9 % (47-70); Platelet Count 190 K/mm3 (150-450); RBC Distribution Width CV 13.9 % (11.6-14.6); RBC Distribution Width SD 47.1 fl (35.1-43.9); White Blood Count 7.6 K/mm3 (4.4-11.0)
[2019-11-10 15:34] LABS: AST(SGOT) 17 U/L (15-37); Alanine Aminotransfer ALT/SGPT 20 U/L (13-56); Albumin, Serum 3.7 g/dL (3.2-5.0); Alkaline Phosphatase 75 U/L (45-117); Anion Gap 5 (5-15); BUN 16 mg/dL (7-18); BUN/Creat Ratio 19.3 RATIO (10-20); Calcium,Total 9.5 mg/dL (8.5-10.1); Chloride 105 mmol/L (98-107); Creatinine, Serum 0.83 mg/dL (0.55-1.02); EST Glomerular Filtration Rate 71 mL/min (>60); Est Glom Filt Rate - Afr Amer 86 mL/min (>60); Globulin 3.6 g/dL (2.2-4.2); Glucose 76 mg/dL (74-106); Potassium 3.9 mmol/L (3.5-5.1); Protein, Total 7.3 g/dL (6.4-8.2); Sodium Level 140 mmol/L (136-145)
== END | disposition home or self-care (01) ==
LOC: MTLAB 13:36
PROVIDERS: PCP Family Medicine; Referring Provider Internal Medicine Rheumatology; Visit Provider Internal Medicine Rheumatology
DX: M06.00 Rheumatoid arthritis without rheumatoid factor, unspecified site (principal); M81.0 Age-related osteoporosis without current pathological fracture; J44.9 Chronic obstructive pulmonary disease, unspecified; I10 Essential (primary) hypertension; K57.90 Diverticulosis of intestine, part unspecified, without perforation or abscess without bleeding; N20.0 Calculus of kidney; Z79.899 Other long term (current) drug therapy
CPT/HCPCS: 36415; 80053; 85025

== ENCOUNTER → 2020-01-26 11:28 | Outpatient (CLI) | payer MEDICARE, SELFPAY ==
[2017-04-14 21:57] VITALS: BMI 17.6
[2020-01-26 15:30] LABS: Absolute Lymphocyte Count 2.35 X10^3/uL (0.83-4.51); Absolute Neutrophil Count 2.9 X10^3/uL (2.0-7.7); Basophil# 0.05 X10^3/uL; Basophil% 0.9 % (0-1); Eosinophil# 0.18 X10^3/uL; Eosinophils% 3.1 % (0-5); Hematocrit 45.2 % (37-47); Hemoglobin 14.5 g/dL (12.0-15.0); Lymphocyte # 2.35 X10^3/ul (4.0); Lymphocyte % 40.1 % (19-41); Mean Corp Hgb Conc 32.1 g/dL (32-36); Mean Corpuscular Hgb 29.7 pg (27.0-32.0); Mean Corpuscular Volume 92.4 fL (81-99); Mean Platelet Vol. 11.7 fl (6.2-12.0); Monocyte# 0.38 X10^3/uL; Monocyte% 6.5 % (0-10); NRBC Flagged by Analyzer 0 % (0-5); Neutrophil # 2.89 X10^3/uL (2.7-7.7); Neutrophil % 49.2 % (47-70); Platelet Count 179 K/mm3 (150-450); RBC Distribution Width CV 13.2 % (11.6-14.6); RBC Distribution Width SD 44.7 fl (35.1-43.9); Red Blood Count 4.89 M/mm3 (4.2-5.4); White Blood Count 5.9 K/mm3 (4.4-11.0)
[2020-01-26 16:11] LABS: AST(SGOT) 16 U/L (15-37); Alanine Aminotransfer ALT/SGPT 21 U/L (13-56); Albumin, Serum 3.5 g/dL (3.2-5.0); Alkaline Phosphatase 79 U/L (45-117); Anion Gap 6 (5-15); BUN 18 mg/dL (7-18); BUN/Creat Ratio 19.7 RATIO (10-20); Chloride 106 mmol/L (98-107); Creatinine, Serum 0.92 mg/dL (0.55-1.02); EST Glomerular Filtration Rate 63 mL/min (>60); Est Glom Filt Rate - Afr Amer 76 mL/min (>60); Globulin 3.5 g/dL (2.2-4.2); Glucose 148 mg/dL (74-106); Potassium 3.7 mmol/L (3.5-5.1); Sodium Level 141 mmol/L (136-145)
== END ==
PROVIDERS: PCP Family Medicine; Referring Provider Internal Medicine Rheumatology; Visit Provider Internal Medicine Rheumatology
DX: M06.00 Rheumatoid arthritis without rheumatoid factor, unspecified site (principal); M81.0 Age-related osteoporosis without current pathological fracture; J44.9 Chronic obstructive pulmonary disease, unspecified; I10 Essential (primary) hypertension; Z79.899 Other long term (current) drug therapy; K57.90 Diverticulosis of intestine, part unspecified, without perforation or abscess without bleeding
CPT/HCPCS: 36415; 80053; 85025

== ENCOUNTER → 2020-04-10 11:51 | Outpatient (CLI) | payer MEDICARE, SELFPAY ==
[2017-04-14 21:57] VITALS: BMI 17.6
[2020-04-10 15:19] LABS: Absolute Lymphocyte Count 2.89 X10^3/uL (0.83-4.51); Absolute Neutrophil Count 3.7 X10^3/uL (2.0-7.7); Basophil# 0.04 X10^3/uL; Basophil% 0.5 % (0-1); Eosinophil# 0.24 X10^3/uL; Eosinophils% 3.1 % (0-5); Hematocrit 44.2 % (37-47); Hemoglobin 14.7 g/dL (12.0-15.0); Lymphocyte # 2.89 X10^3/ul (4.0); Lymphocyte % 37.5 % (19-41); Mean Corp Hgb Conc 33.3 g/dL (32-36); Mean Corpuscular Hgb 30.3 pg (27.0-32.0); Mean Corpuscular Volume 91.1 fL (81-99); Mean Platelet Vol. 12.3 fl (6.2-12.0); Monocyte% 10.4 % (0-10); NRBC Flagged by Analyzer 0 % (0-5); Neutrophil # 3.72 X10^3/uL (2.7-7.7); Neutrophil % 48.4 % (47-70); Platelet Count 185 K/mm3 (150-450); RBC Distribution Width CV 13.4 % (11.6-14.6); RBC Distribution Width SD 44.3 fl (35.1-43.9); Red Blood Count 4.85 M/mm3 (4.2-5.4); White Blood Count 7.7 K/mm3 (4.4-11.0)
[2020-04-10 15:37] LABS: AST(SGOT) 20 U/L (15-37); Alanine Aminotransfer ALT/SGPT 20 U/L (13-56); Albumin, Serum 3.4 g/dL (3.2-5.0); Alkaline Phosphatase 92 U/L (45-117); Anion Gap 4 (5-15); BUN 15 mg/dL (7-18); BUN/Creat Ratio 18.1 RATIO (10-20); Calcium,Total 9.1 mg/dL (8.5-10.1); Chloride 107 mmol/L (98-107); Creatinine, Serum 0.83 mg/dL (0.55-1.02); EST Glomerular Filtration Rate 71 mL/min (>60); Est Glom Filt Rate - Afr Amer 85 mL/min (>60); Globulin 3.5 g/dL (2.2-4.2); Glucose 86 mg/dL (74-106); Potassium 3.9 mmol/L (3.5-5.1); Protein, Total 6.9 g/dL (6.4-8.2); Sodium Level 140 mmol/L (136-145)
== END ==
PROVIDERS: PCP Family Medicine; Referring Provider Internal Medicine Rheumatology; Visit Provider Internal Medicine Rheumatology
DX: M06.031 Rheumatoid arthritis without rheumatoid factor, right wrist (principal); M81.0 Age-related osteoporosis without current pathological fracture; J44.9 Chronic obstructive pulmonary disease, unspecified; I10 Essential (primary) hypertension; K57.90 Diverticulosis of intestine, part unspecified, without perforation or abscess without bleeding; N20.0 Calculus of kidney; Z79.899 Other long term (current) drug therapy
CPT/HCPCS: 36415; 80053; 85025

== ENCOUNTER → 2020-07-03 13:11 | Outpatient (CLI) | payer MEDICARE, SELFPAY ==
[2017-04-14 21:57] VITALS: BMI 17.6
[2020-07-03 16:18] LABS: Absolute Lymphocyte Count 3.45 X10^3/uL (0.83-4.51); Absolute Neutrophil Count 2.6 X10^3/uL (2.0-7.7); Basophil# 0.04 X10^3/uL; Basophil% 0.6 % (0-1); Eosinophil# 0.23 X10^3/uL; Eosinophils% 3.3 % (0-5); Hematocrit 43.1 % (37-47); Hemoglobin 14.4 g/dL (12.0-15.0); Lymphocyte # 3.45 X10^3/ul (0.83-4.51); Lymphocyte % 48.9 % (19-41); Mean Corp Hgb Conc 33.4 g/dL (32-36); Mean Corpuscular Hgb 30.5 pg (27.0-32.0); Mean Corpuscular Volume 91.3 fL (81-99); Mean Platelet Vol. 11.7 fl (6.2-12.0); Monocyte# 0.71 X10^3/uL; Monocyte% 10.1 % (0-10); NRBC Flagged by Analyzer 0 % (0-5); Neutrophil % 36.8 % (47-70); Platelet Count 206 K/mm3 (150-450); RBC Distribution Width CV 13.3 % (11.6-14.6); RBC Distribution Width SD 44.3 fl (35.1-43.9); Red Blood Count 4.72 M/mm3 (4.2-5.4); White Blood Count 7.1 K/mm3 (4.4-11.0)
[2020-07-03 16:26] LABS: AST(SGOT) 15 U/L (15-37); Alanine Aminotransfer ALT/SGPT 19 U/L (13-56); Albumin, Serum 3.5 g/dL (3.2-5.0); Alkaline Phosphatase 81 U/L (45-117); Anion Gap 3 (5-15); BUN 17 mg/dL (7-18); BUN/Creat Ratio 19.3 RATIO (10-20); Calcium,Total 9.3 mg/dL (8.5-10.1); Chloride 108 mmol/L (98-107); Creatinine, Serum 0.88 mg/dL (0.55-1.02); EST Glomerular Filtration Rate 66 mL/min (>60); Est Glom Filt Rate - Afr Amer 80 mL/min (>60); Globulin 3.4 g/dL (2.2-4.2); Glucose 82 mg/dL (74-106); Potassium 3.7 mmol/L (3.5-5.1); Protein, Total 6.9 g/dL (6.4-8.2); Sodium Level 140 mmol/L (136-145)
== END ==
PROVIDERS: PCP Family Medicine; Referring Provider Internal Medicine Rheumatology; Visit Provider Internal Medicine Rheumatology
DX: M06.031 Rheumatoid arthritis without rheumatoid factor, right wrist (principal); M81.0 Age-related osteoporosis without current pathological fracture; J44.9 Chronic obstructive pulmonary disease, unspecified; I10 Essential (primary) hypertension; K57.90 Diverticulosis of intestine, part unspecified, without perforation or abscess without bleeding; N20.0 Calculus of kidney; Z79.899 Other long term (current) drug therapy
CPT/HCPCS: 36415; 80053; 85025

== ENCOUNTER → 2020-09-26 12:49 | Outpatient (CLI) | payer MEDICARE, SELFPAY ==
[2020-09-26 15:03] LABS: Absolute Neutrophil Count 2.9 X10^3/uL (2.0-7.7); Basophil# 0.05 X10^3/uL; Basophil% 0.7 % (0-1); Eosinophil# 0.21 X10^3/uL; Eosinophils% 2.9 % (0-5); Hematocrit 45.3 % (37-47); Hemoglobin 15.3 g/dL (12.0-15.0); Lymphocyte % 46.2 % (19-41); Mean Corp Hgb Conc 33.8 g/dL (32-36); Mean Corpuscular Hgb 30.4 pg (27.0-32.0); Mean Corpuscular Volume 90.1 fL (81-99); Mean Platelet Vol. 11.5 fl (6.2-12.0); Monocyte# 0.66 X10^3/uL; Monocyte% 9.2 % (0-10); NRBC Flagged by Analyzer 0 % (0-5); Neutrophil # 2.89 X10^3/uL (2.7-7.7); Neutrophil % 40.6 % (47-70); Platelet Count 204 K/mm3 (150-450); RBC Distribution Width CV 13.3 % (11.6-14.6); RBC Distribution Width SD 43.6 fl (35.1-43.9); Red Blood Count 5.03 M/mm3 (4.2-5.4); White Blood Count 7.1 K/mm3 (4.4-11.0)
[2020-09-26 15:28] LABS: ALB/GLOB Ratio 1.1 RATIO (0.9-2.4); AST(SGOT) 16 U/L (15-37); Alanine Aminotransfer ALT/SGPT 22 U/L (13-56); Albumin, Serum 3.7 g/dL (3.2-5.0); Alkaline Phosphatase 78 U/L (45-117); Anion Gap 4 (5-15); BUN 15 mg/dL (7-18); BUN/Creat Ratio 18.4 RATIO (10-20); Calcium,Total 9.2 mg/dL (8.5-10.1); Chloride 107 mmol/L (98-107); Creatinine, Serum 0.82 mg/dL (0.55-1.02); EST Glomerular Filtration Rate 72 mL/min (>60); Est Glom Filt Rate - Afr Amer 87 mL/min (>60); Globulin 3.4 g/dL (2.2-4.2); Glucose 93 mg/dL (74-106); Protein, Total 7.1 g/dL (6.4-8.2); Sodium Level 139 mmol/L (136-145)
== END ==
PROVIDERS: PCP Family Medicine; Referring Provider Internal Medicine Rheumatology; Visit Provider Internal Medicine Rheumatology
DX: M06.031 Rheumatoid arthritis without rheumatoid factor, right wrist (principal); Z79.899 Other long term (current) drug therapy; M81.0 Age-related osteoporosis without current pathological fracture; J44.9 Chronic obstructive pulmonary disease, unspecified; I10 Essential (primary) hypertension; K57.90 Diverticulosis of intestine, part unspecified, without perforation or abscess without bleeding; N20.0 Calculus of kidney
CPT/HCPCS: 36415; 80053; 85025

== ENCOUNTER → 2021-01-10 10:42 | Outpatient (CLI) | payer MEDICARE, SELFPAY ==
[2021-01-10 12:11] LABS: Absolute Lymphocyte Count 2.63 X10^3/uL (0.83-4.51); Basophil# 0.07 X10^3/uL; Eosinophil# 0.13 X10^3/uL; Eosinophils% 1.9 % (0-5); Hematocrit 43.7 % (37-47); Hemoglobin 14.5 g/dL (12.0-15.0); Lymphocyte # 2.63 X10^3/ul (0.83-4.51); Lymphocyte % 39.4 % (19-41); Mean Corp Hgb Conc 33.2 g/dL (32-36); Mean Corpuscular Volume 90.3 fL (81-99); Mean Platelet Vol. 11.3 fl (6.2-12.0); Monocyte# 0.81 X10^3/uL; Monocyte% 12.1 % (0-10); NRBC Flagged by Analyzer 0 % (0-5); Neutrophil # 2.98 X10^3/uL (2.7-7.7); Neutrophil % 44.7 % (47-70); Platelet Count 239 K/mm3 (150-450); RBC Distribution Width CV 14.6 % (11.6-14.6); RBC Distribution Width SD 48.1 fl (35.1-43.9); Red Blood Count 4.84 M/mm3 (4.2-5.4); White Blood Count 6.7 K/mm3 (4.4-11.0)
[2021-01-10 13:12] LABS: ALB/GLOB Ratio 0.9 RATIO (0.9-2.4); AST(SGOT) 18 U/L (15-37); Alanine Aminotransfer ALT/SGPT 20 U/L (13-56); Albumin, Serum 3.4 g/dL (3.2-5.0); Alkaline Phosphatase 71 U/L (45-117); Anion Gap 6 (5-15); BUN 15 mg/dL (7-18); BUN/Creat Ratio 17.4 RATIO (10-20); Calcium,Total 9.7 mg/dL (8.5-10.1); Chloride 108 mmol/L (98-107); Creatinine, Serum 0.86 mg/dL (0.55-1.02); EST Glomerular Filtration Rate 67 mL/min (>60); Est Glom Filt Rate - Afr Amer 81 mL/min (>60); Globulin 3.9 g/dL (2.2-4.2); Glucose 120 mg/dL (74-106); Potassium 4.2 mmol/L (3.5-5.1); Protein, Total 7.3 g/dL (6.4-8.2); Sodium Level 138 mmol/L (136-145)
== END ==
PROVIDERS: PCP Family Medicine; Referring Provider Internal Medicine Rheumatology; Visit Provider Internal Medicine Rheumatology
DX: M06.031 Rheumatoid arthritis without rheumatoid factor, right wrist (principal); M81.0 Age-related osteoporosis without current pathological fracture; J44.9 Chronic obstructive pulmonary disease, unspecified; I10 Essential (primary) hypertension; K57.90 Diverticulosis of intestine, part unspecified, without perforation or abscess without bleeding; N20.0 Calculus of kidney; Z79.899 Other long term (current) drug therapy
CPT/HCPCS: 36415; 80053; 85025

== ENCOUNTER 2021-03-11 12:19 | Inpatient (IN) | payer MEDICARE, SELFPAY ==
[2021-03-11] VITALS (12 sets, daily range): BP systolic 122–147; BP diastolic 50–64; PULSE 90–104; RESP 14–30; TEMP 38.1–38.6; O2SAT 92–99; BMI 21.9
--- NOTE | 2021-03-11 12:43 | CT_ITS ---
EXAM: CT HEAD WITHOUT INTRAVENOUS CONTRAST : 1940 CLINICAL INDICATION: confusion TECHNIQUE: Multiple axial images were obtained of the head without intravenous contrast. This CT exam was performed using one or more of the following dose reduction techniques: automated exposure control, adjustment of the mA and/or kV according to patient size, and/or use of iterative reconstruction technique. This report was created using [employer] report generation technology. COMPARISON: None. FINDINGS: BRAIN AND EXTRA-AXIAL SPACES: Diminished white matter density cosistent with chronic microvascular disese. No intra- or extra-axial hemorrhage. No evidence of acute infarct. No intracranial mass or mass effect. There is preservation of the mercedes/white matter interface. Posterior fossa structures are unremarkable. Ventricles are appropriate for age. No hydrocephalus. Basal cisterns are patent. BONES/JOINTS: Unremarkable. No discrete lytic or blastic abnormalities. SINUSES: Unremarkable as visualized. Clear. MASTOID AIR CELLS: Unremarkable. Clear. ORBITS: Visualized globes, extraocular muscles, optic nerves and retrobulbar fat appear unremarkable. CT/Brain/Head without Contrast IMPRESSION: 1. No acute abnormality. 2. Chronic microvascular changes. Individualized dose optimization techniques were used for this CT. at 1341 Reported and signed by: Oli Parks MD Electronically Signed: Oli Parks MD at 13:39 EST ,
--- NOTE | 2021-03-11 12:44 | EKG12_ITS ---
Test Reason : CONFUSION Blood Pressure : / mmHG Vent. Rate : 094 BPM Atrial Rate : 094 BPM P-R Int : 162 ms QRS Dur : 074 ms QT Int : 362 ms P-R-T Axes : 075 -06 083 degrees QTc Int : 452 ms Normal sinus rhythm Normal ECG Confirmed by SRI RICHARDSON, SHAHRIAR ([id number]), deputy editor in chief CHET HALL ([id number]) on 03/12/2021 8:39:06 AM Referred By: KAYLEY/NÉSTOR Confirmed By:SHAHRIAR FIERRO MD
--- NOTE | 2021-03-11 12:44 | EX.ED.DYSGE1 ---
HPI History of Present Illness Chief Complaint: Confusion Narrative Narrative: Very limited history from this confused patient presenting from home with a fever. EMS states she has had Covid recently, but the patient states that she has had Covid in November which apparently she did. She lives at home. She denies having any chest pain right now. She denies have a cough, but immediately after saying that starts coughing and covering her mouth. [facility] Medical History (Updated 03/11/21 @ 16:[address] Derrick Hayes MD) Osteoporosis Rheumatoid arthritis Medical History unable to obtain Home Medications alendronate 70 mg PO Q7D@0700 04/14/17 [History Last Taken 04/12/17] etanercept [Enbrel] 50 mg SQ Q7D 04/14/17 [History Last Taken 04/12/17] folic acid 1 mg PO DAILY 04/14/17 [History Last Taken 04/13/17] methotrexate sodium 8 tab QWEEK 04/14/17 [History Last Taken 04/12/17] acetaminophen [Tylenol] 650 mg PO Q6H PRN PRN tablet 04/16/17 [Rx Last Taken Unknown] food supplemt, lactose-reduced 120 ml PO 4X/DAY #100 liquid 04/16/17 [Rx Last Taken Unknown] oseltamivir 75 mg PO BID #8 bottle 04/16/17 [Rx Last Taken Unknown] Allergy/AdvReac Type Severity Reaction Status Date / Time No Known Allergies Allergy Verified 04/14/17 18:00 Family History unable to obtain Surgical History unable to obtain Social History Smoking Status: Current every day smoker tobacco type: cigarettes ROS ROS ED Review of Systems ROS Unobtainable: due to mental status Constitutional Constitutional ED: Denies fever(s) Cardiovascular Cardiovascular: Denies chest pain Respiratory/Chest Respiratory/Chest: Denies cough or dyspnea Gastrointestinal Gastrointestinal: Denies abdominal pain, diarrhea, nausea or vomiting Genitourinary Genitourinary ED: Denies dysuria or hematuria Musculoskeletal Musculoskeletal: Denies back pain or neck pain Integumentary Denies abscess or rash Neurologic Neurologic: Denies headache(s) EXAM Physical Exam Const Vital Signs: 03/11/21 12:22 03/11/21 12:53 03/11/21 13:07 Temperature 101.5 F H 101.3 F H Temperature Source Oral Oral Pulse Rate 104 H Respiratory Rate 30 H Blood Pressure 147/64 H Blood Pressure Mean 91 Pulse Ox 92 Oxygen Delivery Method Room Air Room Air 03/11/21 13:08 03/11/21 14:02 03/11/21 15:01 Temperature 101.3 F H Temperature Source Oral Pulse Rate 97 90 94 Respiratory Rate 28 H 16 20 H Blood Pressure 135/55 H 135/55 H 126/61 H Blood Pressure Mean 81 81 82 Pulse Ox 92 99 97 Oxygen Delivery Method Room Air Room Air Room Air 03/11/21 16:41 03/11/21 16:50 Temperature 101.5 F H Temperature Source Temporal Pulse Rate 94 95 Respiratory Rate 18 22 H Blood Pressure 134/64 H 139/63 H Blood Pressure Mean 87 88 Pulse Ox 93 93 Oxygen Delivery Method Room Air Room Air Positive well nourished and well developed General Appearance ED: well developed and NAD HEENT Reports moist mucous membranes normocephalic and atraumatic Eyes PERRL and EOMs intact bilaterally Neck full ROM and supple Resp normal respiratory effort and clear to auscultation bilaterally Cardio regular rate and regular rhythm Cardio Narrative: Soft systolic murmur Rate: tachycardic GI non-tender and non-distended Auscultation: normoactive bowel sounds Palpation: soft Back/Spine no CVA tenderness General Back: other FROM Extremity normal to inspection General Extremety ED: Negative for edema, pulses abnormal or tenderness General Extremity: Negative for edema or pulses abnormal Neuro CN's II-XII intact bilaterally and no sensory deficits noted Neuro Narrative: Answers questions are nonsensical. Patient is moving all 4 extremities fairly symmetrically. Both legs hit the bed but she is able to move her feet, no resistance against gravity. Can hold up both arms with some drift symmetrically. Unable to tell she is aphasic or just extremely confused. No dysarthria. Lethargic, alerts to voice. Stacie Coma Scale: document GCS findings To Voice Obeys Commands Confused 13 Sensorium / Orientation: awake, alert, oriented to person, orientation impaired and confused; Negative for oriented to place or oriented to time Skin no rashes or lesions noted and no wounds MDM MDM MDM Narrative Medical decision making narrative: Patient confused, limiting the history, states she has been coughing and states she is not sure if she had had Covid recently or not but she thought she did, we just do not have good details here and there is no result available in the EMR showing that she was even tested recently at least here. She has a fever, normal chest x-ray, normal urinalysis, no other symptoms other than the cough to suggest a source, other than confusion, she does not have clinical findings of meningitis, and a white blood count of only 6.5, suggesting Covid as etiology so we sent a rapid swab. This returned negative, but I still have suspicion so the PCR is sent and pending. Patient still confused. Plan is for admission. Blood cultures sent, right now she does meet SIRS criteria because of her tachycardia and fever. Will admit for further evaluation Lab Data Attestation: I reviewed the patient's lab results. Labs: Laboratory Results - last 24 hr 03/11/21 03/11/21 03/11/21 12:35 12:35 12:35 WBC 6.5 RBC 5.05 Hgb 15.5 H Hct 45.9 MCV 90.9 MCH 30.7 MCHC 33.8 RDW Std Deviation 45.1 H RDW Coeff of Clair 13.3 Plt Count 201 MPV 11.5 Immature Gran % (Auto) 0.300 Neut % (Auto) 77.0 H Lymph % (Auto) 10.8 L [place] % (Auto) 9.9 Eos % (Auto) 1.5 Baso % (Auto) 0.5 Absolute Neuts (auto) 5.0 Absolute Lymphs (auto) 0.70 L Nucleated RBC % 0 PT 13.1 INR 1.0 APTT 26.8 Sodium 136 Potassium 4.3 Chloride 106 Carbon Dioxide 27.0 Anion Gap 3 L BUN 14 Creatinine 0.89 Estim Creat Clear Calc 40.54 Est GFR (MDRD) Af Amer 79 Est GFR (MDRD) Non-Af 65 BUN/Creatinine Ratio 15.7 Glucose 117 H Lactic Acid Calcium 9.0 Total Bilirubin 0.70 AST 24 ALT 23 Alkaline Phosphatase 68 Troponin I High Sens 28 Total Protein 7.3 Albumin 3.7 Globulin 3.6 Albumin/Globulin Ratio 1.0 Urine Color Urine Clarity Urine pH Ur Specific Urich Urine Protein Urine Glucose (UA) Urine Ketones Urine Occult Blood Urine Nitrite Urine Bilirubin Urine Urobilinogen Ur Leukocyte Esterase Urine RBC Urine WBC Ur Squamous Epith Cells Urine Bacteria Urine Mucus 03/11/21 03/11/21 12:35 14:44 WBC RBC Hgb Hct MCV MCH MCHC RDW Std Deviation RDW Coeff of Clair Plt Count MPV Immature Gran % (Auto) Neut % (Auto) Lymph % (Auto) [place] % (Auto) Eos % (Auto) Baso % (Auto) Absolute Neuts (auto) Absolute Lymphs (auto) Nucleated RBC % PT INR APTT Sodium Potassium Chloride Carbon Dioxide Anion Gap BUN Creatinine Estim Creat Clear Calc Est GFR (MDRD) Af Amer Est GFR (MDRD) Non-Af BUN/Creatinine Ratio Glucose Lactic Acid 1.2 Calcium Total Bilirubin AST ALT Alkaline Phosphatase Troponin I High Sens Total Protein Albumin Globulin Albumin/Globulin Ratio Urine Color Yellow Urine Clarity Clear Urine pH 6.5 Ur Specific Urich 1.015 Urine Protein 15 H Urine Glucose (UA) Normal Urine Ketones 5 H Urine Occult Blood 50 H Urine Nitrite Negative Urine Bilirubin Negative Urine Urobilinogen 1 H Ur Leukocyte Esterase Negative Urine RBC 10-25 SEEN Urine WBC 0-5 SEEN Ur Squamous Epith Cells 0 SEEN Urine Bacteria 0 SEEN Urine Mucus 0 SEEN Radiography Diagnostic Testing: Clinical Impression(s) from Imaging Studies Brain CT 03/11/21 12:43 IMPRESSION: 1. No acute abnormality. 2. Chronic microvascular changes. Individualized dose optimization techniques were used for this CT. at 1341 Reported and signed by: Oli Parks MD Electronically Signed: Oli Parks MD at 13:39 EST , Chest X-Ray 03/11/21 13:05 IMPRESSION: Hyperinflation. Stable calcified granulomas in the left upper lobe. Electronically Signed: Pete Bustamante MD at 13:46 EST , EKG Initial EKG: Attestation: I personally reviewed and interpreted this EKG as follows: Interpretation: Sinus Rhythm and No Acute Injury Pattern Comments: Normal EKG Prior EKG tracings: available for review Prior: Unchanged Discharge Plan Triage Chief Complaint: Confusion ED Provider: Derrick Hayes Dx/Rx/DC Orders Clinical Impression: Acute febrile illness, Encephalopathy, SIRS (systemic inflammatory response syndrome) Prescriptions: No Action alendronate 70 MG tablet 70 mg PO Q7D@0700 RF: 0 etanercept [Enbrel] 50 MG/ML Ml 50 mg SQ Q7D RF: 0 methotrexate sodium 2.5 MG tablet 8 tab QWEEK RF: 0 folic acid 1 MG tablet 1 mg PO DAILY RF: 0 acetaminophen [Tylenol] 325 MG tablet 650 mg PO Q6H PRN PRN (Reason: Fever, headache, pain) RF: 0 oseltamivir 6 MG/ML bottle 75 mg PO BID Qty: 8 RF: 0 food supplemt, lactose-reduced 120 ML liquid 120 ml PO 4X/DAY Qty: 100 RF: 0 Primary Care Provider: Pancho Costello Referrals: Pancho Costello MD [Primary Care Provider] - Disposition Disposition: Acute Care Hospital [facility]
[2021-03-11 13:04] LABS: Partial Thromboplast Time 26.8 Seconds (24.1-36.2); Prothrombin Time (Protime)PT. 13.1 SECONDS (11.7-14.9)
--- NOTE | 2021-03-11 13:05 | RAD_ITS ---
STUDY: X-RAY CHEST REASON FOR EXAM: Female, 81 years old. Confusion. Cough and fever. TECHNIQUE: Single AP portable view of the chest. COMPARISON: Comparison is made with prior study 04/15/2017. FINDINGS: EKG electrodes are seen. Hyperinflation. Stable calcified granulomas in the left upper lobe. There is no demonstrated pleural abnormality. Normal size heart. Normal mediastinum and santosh. Normal visualized pulmonary arteries. There is atherosclerotic calcification of the aortic arch with tortuosity. There is a dextroscoliosis of the thoracic spine. Normal visualized ribs, clavicles, and shoulders. There is no demonstrated abnormality of the visualized soft tissue structures of the upper abdomen. RAD/Chest 1 View (Portable) IMPRESSION: Hyperinflation. Stable calcified granulomas in the left upper lobe. Electronically Signed: Pete Bustamante MD at 13:46 EST ,
[2021-03-11 13:09] LABS: Basophil# 0.03 X10^3/uL; Basophil% 0.5 % (0-1); Eosinophils% 1.5 % (0-5); Hematocrit 45.9 % (37-47); Hemoglobin 15.5 g/dL (12.0-15.0); Lymphocyte % 10.8 % (19-41); Mean Corp Hgb Conc 33.8 g/dL (32-36); Mean Corpuscular Hgb 30.7 pg (27.0-32.0); Mean Corpuscular Volume 90.9 fL (81-99); Mean Platelet Vol. 11.5 fl (6.2-12.0); Monocyte# 0.64 X10^3/uL; Monocyte% 9.9 % (0-10); NRBC Flagged by Analyzer 0 % (0-5); Neutrophil # 4.97 X10^3/uL (2.7-7.7); Platelet Count 201 K/mm3 (150-450); RBC Distribution Width CV 13.3 % (11.6-14.6); RBC Distribution Width SD 45.1 fl (35.1-43.9); Red Blood Count 5.05 M/mm3 (4.2-5.4); White Blood Count 6.5 K/mm3 (4.4-11.0)
[2021-03-11 13:14] LABS: AST(SGOT) 24 U/L (15-37); Alanine Aminotransfer ALT/SGPT 23 U/L (13-56); Albumin, Serum 3.7 g/dL (3.2-5.0); Alkaline Phosphatase 68 U/L (45-117); Anion Gap 3 (5-15); BUN 14 mg/dL (7-18); BUN/Creat Ratio 15.7 RATIO (10-20); Chloride 106 mmol/L (98-107); Creatinine, Serum 0.89 mg/dL (0.55-1.02); EST Glomerular Filtration Rate 65 mL/min (>60); Est Glom Filt Rate - Afr Amer 79 mL/min (>60); Estimated Creatinine Clearance 40.54 ml/min; Globulin 3.6 g/dL (2.2-4.2); Glucose 117 mg/dL (74-106); Potassium 4.3 mmol/L (3.5-5.1); Protein, Total 7.3 g/dL (6.4-8.2); Sodium Level 136 mmol/L (136-145); Troponin-I HS 28 pg/mL (3.0-54.0)
[2021-03-11] MEDS: Acetaminophen 500 MG Tablet 1000 MG PO (13:31)
--- NOTE | 2021-03-11 13:37 | ED.RN ---
pt refused to take tylenol after being removed from package. cristino giang rn [phone]
[2021-03-11 13:38] LABS: Lactic Acid 1.2 mmol/L (0.4-1.9)
[2021-03-11 14:50] LABS: Bacteria 0 SEEN /hpf (None Seen); Mucous, Urine 0 SEEN /hpf (<or=2+); Squamous Epithelial Cells - UA 0 SEEN /hpf (5-10)
[2021-03-11 15:11] LABS: Color, Urine Yellow (Yellow); Glucose, Dipstick Normal (Normal); Ketone-Dipstick 5 mg/dl (Negative); Leukocyte Esterase-Dipstick Negative /ul (Negative); Nitrite-Dipstick Negative (Negative); Occult Blood-Urine 50 /ul (Negative); Protein-Dipstick 15 mg/dl (Negative); Specific Gravity, Urine 1.015 (1.002-1.030); Urine Bilirubin Dipstick Negative (Negative); Urine Clarity Clear (Clear); Urine Urobilinogen 1 mg/dl (Normal); Urine pH 6.5 (5.0 - 8.0)
[2021-03-11 15:17] LABS: Red Blood Cells-Urine 10-25 SEEN /hpf (0-5); White Blood Cells 0-5 SEEN /hpf (0-5)
--- NOTE | 2021-03-11 17:01 | HP.PCM.HOS_ITS ---
HPI - General General Date of Admission: 03/11/21 Date of Service: 03/11/21 Chief Complaint: Acute onset of confusion?on the morning of admission HPI Narrative JOANN SANCHEZ, is a 81 F who presents with the above. Patient is alert orie nted to self. She is confused. Unable to take accurate history from her. History was taken from her . Patient has had a similar presentation 5 weeks ago in [facility]. At that time she was diagnosed with UTI. Patient subsequently has had no complaints. She has been independent at home. No issues with memory. She was found this morning to be very confused. She has been feeling unwell for the past few days. She was found to be lying around and her called the EMS to bring care. In the ED, blood pressure was 135/50, heart rate 92, SPO2 95% temperature is 101.1 F. Patient is unvaccinated because she is on Enbrel for rheumatoid arthritis. WBC count 6.5, Hb 15.5, platelet count 201, INR is 1.0, CMP is unremarkable, UA is unremarkable, COVID-19 rapid antigen and PCR is negative Admitting CT of the brain was unremarkable. Chest X showed hyperinflation, stable calcified granulomas of the left upper lobe. [facility] Medical History Former smoker Osteoporosis Pulmonary embolism Rheumatoid arthritis Medical History unable to obtain Home Medications alendronate 70 mg PO Q7D@0700 04/14/17 [History Last Taken 04/12/17] etanercept [Enbrel] 50 mg SQ Q7D 04/14/17 [History Last Taken 04/12/17] folic acid 1 mg PO DAILY 04/14/17 [History Last Taken 04/13/17] methotrexate sodium 8 tab QWEEK 04/14/17 [History Last Taken 04/12/17] acetaminophen [Tylenol] 650 mg PO Q6H PRN PRN tablet 04/16/17 [Rx Last Taken Unknown] food supplemt, lactose-reduced 120 ml PO 4X/DAY #100 liquid 04/16/17 [Rx Last Taken Unknown] oseltamivir 75 mg PO BID #8 bottle 04/16/17 [Rx Last Taken Unknown] Allergy/AdvReac Type Severity Reaction Status Date / Time No Known Allergies Allergy Verified 04/14/17 18:00 Family History (Updated 03/11/21 @ 19:[address] Ligia Driscoll MD) Mother No problems noted. Father Cancer liver Family History unable to obtain Surgical History unable to obtain no surgical history Social History household members: spouse housing: house Smoking Status: Current every day smoker tobacco type: cigarettes Electronic Cigarette Use: with nicotine alcohol intake: never substance use type: does not use ROS Review of Systems ROS Unobtainable: due to encephalopathy Vital Signs Vital Signs Vital Signs: 03/11/21 12:22 03/11/21 12:53 03/11/21 13:07 Temperature 101.5 F H 101.3 F H Temperature Source Oral Oral Pulse Rate 104 H Respiratory Rate 30 H Blood Pressure 147/64 H Blood Pressure Mean 91 Pulse Ox 92 Oxygen Delivery Method Room Air Room Air 03/11/21 13:08 03/11/21 14:02 03/11/21 15:01 Temperature 101.3 F H Temperature Source Oral Pulse Rate 97 90 94 Respiratory Rate 28 H 16 20 H Blood Pressure 135/55 H 135/55 H 126/61 H Blood Pressure Mean 81 81 82 Pulse Ox 92 99 97 Oxygen Delivery Method Room Air Room Air Room Air 03/11/21 16:41 03/11/21 16:50 Temperature 101.5 F H Temperature Source Temporal Pulse Rate 94 95 Respiratory Rate 18 22 H Blood Pressure 134/64 H 139/63 H Blood Pressure Mean 87 88 Pulse Ox 93 93 Oxygen Delivery Method Room Air Room Air Weight Weight: 54.5 kg Body Mass Index (BMI) 21.9 Physical Exam Narrative Physical exam: General: Alert,oriented to self, not pale, not jaundiced HEENT: Atraumatic Oral:Very dry Mucosa Neck: Supple Lungs: Diminished to auscultation Cardiovascular: HS I+II, regular, no murmurs Abdomen: Bowel Sounds Present, Soft, Non Tender Extremities: No edema Results Lab / Micro Data Result Diagrams: 03/11/21 12:35 03/11/21 12:35 Labs: Laboratory Results - last 24 hr 03/11/21 12:35: WBC 6.5, RBC 5.05, Hgb 15.5 H, Hct 45.9, MCV 90.9, MCH 30.7, MCHC 33.8, RDW Std Deviation 45.1 H, RDW Coeff of Clair 13.3, Plt Count 201, MPV 11.5, Immature Gran % (Auto) 0.300, Neut % (Auto) 77.0 H, Lymph % (Auto) 10.8 L, [place] % (Auto) 9.9, Eos % (Auto) 1.5, Baso % (Auto) 0.5, Absolute Neuts (auto) 5.0, Absolute Lymphs (auto) 0.70 L, Nucleated RBC % 0 03/11/21 12:35: PT 13.1, INR 1.0, APTT 26.8 03/11/21 12:35: Sodium 136, Potassium 4.3, Chloride 106, Carbon Dioxide 27.0, Anion Gap 3 L, BUN 14, Creatinine 0.89, Estim Creat Clear Calc 40.54, Est GFR (MDRD) Af Amer 79, Est GFR (MDRD) Non-Af 65, BUN/Creatinine Ratio 15.7, Glucose 117 H, Calcium 9.0, Total Bilirubin 0.70, AST 24, ALT 23, Alkaline Phosphatase 68, Troponin I High Sens 28, Total Protein 7.3, Albumin 3.7, Globulin 3.6, Albumin/Globulin Ratio 1.0 03/11/21 12:35: Lactic Acid 1.2 03/11/21 14:44: Urine Color Yellow, Urine Clarity Clear, Urine pH 6.5, Ur Specific [place] 1.015, Urine Protein 15 H, Urine Glucose (UA) Normal, Urine Ketones 5 H, Urine Occult Blood 50 H, Urine Nitrite Negative, Urine Bilirubin Negative, Urine Urobilinogen 1 H, Ur Leukocyte Esterase Negative, Urine RBC 10- 25 SEEN, Urine WBC 0-5 SEEN, Ur Squamous Epith Cells 0 SEEN, Urine Bacteria 0 SEEN, Urine Mucus 0 SEEN Micro: Microbiology 03/11/21 15:38 Nasal Secretion SARS-CoV-2 Antigen (Rapid) - Final Radiology Impression Brain CT 03/11/21 12:43 IMPRESSION: 1. No acute abnormality. 2. Chronic microvascular changes. Individualized dose optimization techniques were used for this CT. at 1341 Reported and signed by: Oli Parks MD Electronically Signed: Oli Parks MD at 13:39 EST , Chest X-Ray 03/11/21 13:05 IMPRESSION: Hyperinflation. Stable calcified granulomas in the left upper lobe. Electronically Signed: Pete Bustamante MD at 13:46 EST , Assessment & Plan Assessment/Plan (1) Rheumatic arthritis of temporomandibular joint: (2) Encephalopathy: PLAN: 1. Acute metabolic versus infectious encephalopathy, unclear etiology Patient is immunocompromised; patient has been febrile here UA and chest x-ray are unremarkable COVID-19 rapid antigen and PCR are negative Blood and urine cultures taken from the ED Start on empiric Zosyn and vancomycin ID consult MRI of the brain; stroke work-up if MRI is positive 2. Rheumatoid arthritis, on Enbrel, methotrexate Home med list is yet to be clarified 3. Osteoporosis, continue on alendronate 4. DVT prophylaxis?Lovenox subcu 5. I discussed and explained in details the various types of CODE STATUS-full code, DNR CCA, DNR CC with the patient's . He stated that patient would like everything done to keep her alive as she is very active. Time spent discussing CODE STATUS 17 minutes Charges/Coding Visit Charges Inpatient E&M: 83352 Init Hosp L3 Procedures Hospitalists Procedures: 26058 Advncd Care Plan 30 Min
--- NOTE | 2021-03-11 17:14 | NURSING ---
PCU NUAMAH FEVER, ENCEPHALOPATHY, SIRS
--- NOTE | 2021-03-11 17:40 | CASEMGMT ---
Patient presents to ER with c/o confusion. RN CM placed telephone call to patient's Erick Prieto, introduced self and role at [facility]. voices understanding and consents to assessment at this time. Care providers, pharmacy, and demographics verified/updated at this time. 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 Denies HPOA. LNOK: Erick Prieto Living Arrangements: Patient lives with in mobile home with 4 steps to enter and a handrail present. Patient's reports patient independent with ADLs prior to hospitalization. Per , patient typically ambulates independently without the use of an assistive device. Patient's daughter has been staying at patient's home x 3 weeks following patient's previous hospital discharge to assist with cooking and housekeeping. Smoking/ETOH: Current smoker 1/2 ppd, no ETOH use (per ) Transportation: Patient drives self and available for transport needs. DME/HHC/SNF: Patient has a shower chair, raised toilet seat and grab bars at home. Denies previous HHC or SNF stays. Patient does not wear home oxygen and states no preference for DME company. Patient admitted to [facility] approximately 5 weeks ago for 4 days for similar presentation/confusion, Dx COVID. Patient is unvaccinated against COVID, states patient unable to have vaccine due to taking Enbrel for rheumatoid arthritis. Patient's has no concerns with patient going home at time of discharge but does mention that patient c/o feeling weak this morning. CM to follow for any discharge planning/needs. Patient's voices no concerns/needs at this time. Advised patient's to ask for CM if any questions/concerns/needs arise. Voices understanding. Plan: home, follow for possible HHC needs
[2021-03-11] MEDS: 0.9% Normal Saline 1,000 ML 100 ML IV (18:53)
--- NOTE | 2021-03-11 19:42 | MRI_ITS ---
EXAM: MR HEAD WITHOUT INTRAVENOUS CONTRAST : 1940 CLINICAL INDICATION: Acute encephalopathy,AMS TECHNIQUE: Multiplanar and multisequence MR images of the brain were obtained without intravenous contrast. This report was created using M-[employer] report generation technology. COMPARISON: CT brain March 11, 2021 FINDINGS: BRAIN AND EXTRA-AXIAL SPACES: Multiple foci of increased T2 signal intensity within the cerebral white matter consistent with gliosis/chronic microvascular disease. No intra- or extra-axial hemorrhage. No evidence of acute infarct. No intracranial mass or mass effect. There is preservation of the mercedes/white matter interface. Posterior fossa structures are unremarkable. Ventricles are appropriate for age. No hydrocephalus. Basal cisterns are patent. SELLA: Unremarkable. Normal sella turcica, pituitary gland, infundibular stalk, optic chiasm and hypothalamus. AUDITORY SYSTEM: Unremarkable. The internal auditory canals are patent. BONES/JOINTS: Unremarkable. No discrete lytic or blastic abnormalities. SINUSES: Unremarkable as visualized. Clear. MASTOID AIR CELLS: Unremarkable as visualized. Clear. ORBITS: Unremarkable as visualized. Both globes, extraocular muscles, optic nerves and retrobulbar fat appear unremarkable. VASCULATURE: Unremarkable as visualized. Normal flow voids in the major intracranial circulation. MRI/Brain without Contrast IMPRESSION: 1. No acute abnormality. 2. White matter changes suggestive of chronic microvascular disease. at 1440 Reported and signed by: Oli Parks MD Electronically Signed: Oli Parks MD at 14:39 EST ,
[2021-03-11 20:10] LABS: Troponin-I HS 30 pg/mL (3.0-54.0)
[2021-03-11 21:47] LABS: Troponin-I HS 28 pg/mL (3.0-54.0)
[2021-03-12] VITALS (10 sets, daily range): BP systolic 124–148; BP diastolic 59–78; PULSE 73–93; RESP 14–20; TEMP 37.1–37.6; O2SAT 92–95
[2021-03-12 04:05] LABS: Absolute Lymphocyte Count 1.16 X10^3/uL (0.83-4.51); Absolute Neutrophil Count 2.4 X10^3/uL (2.0-7.7); Basophil# 0.02 X10^3/uL; Basophil% 0.5 % (0-1); Eosinophil# 0.01 X10^3/uL; Eosinophils% 0.2 % (0-5); Hematocrit 40.6 % (37-47); Hemoglobin 13.5 g/dL (12.0-15.0); Lymphocyte # 1.16 X10^3/ul (0.83-4.51); Lymphocyte % 27.2 % (19-41); Mean Corp Hgb Conc 33.3 g/dL (32-36); Mean Corpuscular Hgb 30.7 pg (27.0-32.0); Mean Corpuscular Volume 92.3 fL (81-99); Mean Platelet Vol. 11.8 fl (6.2-12.0); Monocyte# 0.71 X10^3/uL; Monocyte% 16.7 % (0-10); NRBC Flagged by Analyzer 0 % (0-5); Neutrophil # 2.35 X10^3/uL (2.7-7.7); Neutrophil % 55.2 % (47-70); Platelet Count 144 K/mm3 (150-450); RBC Distribution Width CV 13.3 % (11.6-14.6); White Blood Count 4.3 K/mm3 (4.4-11.0)
[2021-03-12 04:28] LABS: AST(SGOT) 21 U/L (15-37); Alanine Aminotransfer ALT/SGPT 18 U/L (13-56); Alkaline Phosphatase 52 U/L (45-117); Anion Gap 6 (5-15); BUN 16 mg/dL (7-18); BUN/Creat Ratio 23.1 RATIO (10-20); Calcium,Total 8.3 mg/dL (8.5-10.1); Chloride 109 mmol/L (98-107); Cholesterol 108 mg/dL (200); Creatinine, Serum 0.69 mg/dL (0.55-1.02); EST Glomerular Filtration Rate 87 mL/min (>60); Est Glom Filt Rate - Afr Amer 105 mL/min (>60); Estimated Creatinine Clearance 34.42 ml/min; Globulin 2.9 g/dL (2.2-4.2); Glucose 95 mg/dL (74-106); High Density Lipoprotein 41 mg/dL; Potassium 3.7 mmol/L (3.5-5.1); Protein, Total 5.9 g/dL (6.4-8.2); Sodium Level 139 mmol/L (136-145); Triglycerides 86 mg/dL; Very Low Density Lipoprotein 17 mg/dL (5-40)
[2021-03-12 04:33] LABS: Troponin-I HS 29 pg/mL (3.0-54.0)
[2021-03-12] MEDS: 0.9% Normal Saline 1,000 ML 100 ML IV ×2 (04:58→17:31)
[2021-03-12 05:36] LABS: Amphetamine Urine VISTA NEGATIVE (<1000 ng/mL); Barbiturate Urine VISTA NEGATIVE (< 200 ng/mL); Benzodiazepine Urine VISTA NEGATIVE (< 200 ng/mL); Cocaine Urine VISTA NEGATIVE (< 300 ng/mL); Ecstacy Urine VISTA NEGATIVE (< 500 ng/mL); Methadone Urine VISTA NEGATIVE (< 300 ng/mL); PCP Urine VISTA NEGATIVE (< 25 ng/mL); THC Urine VISTA NEGATIVE (< 50 ng/mL); Vista UDS pH Range 5
[2021-03-12] MEDS: Aspirin 81 MG TAB.CHEW PO (08:12)
[2021-03-12] MEDS: Enoxaparin 30 MG/0.3 ML Syringe SC (10:36)
--- NOTE | 2021-03-12 11:29 | CON.PCM.ID_ITS ---
Assessment & Plan Assessment/Plan (1) Acute febrile illness: PLAN: Single (+) bcx with staph-like bacteria, not clear if contaminant or true pathogen. with flu-like illness, and she has dry cough, sore throat, headache, fever, and hypoxia. Recommended get tested for covid and call PCP. Will check full resp viral panel for her. Covid pcr and neg Ag here, but do have concern for false neg tests. Recommended covid vaccine when she is able. Will follow, thank you HPI Consult Data Date of Consult: 03/12/21 HPI Narrative HPI Narrative: JOANN SANCHEZ, is a 81 F with RA, on enbrel, unvaccinated for covid, admitted last night through ED with new onset that AM of fever, confusion. Had not been feeling well for several days. No recent procedures, no rash, no skin infection. sick with flu-like illness. She c/o dry cough, sore throat, headache. No change in taste or smell, no n/v/d. is fully vaccinated x3 for covid, has not been tested for covid. She came to ED, admitted on vanc/zosyn. Single bcx with staph-like bacteria. Full ROS performed and neg except as noted above. [facility] Medical History Former smoker Osteoporosis Pulmonary embolism Rheumatoid arthritis Medical History unable to obtain Home Medications alendronate 70 mg PO Q7D@0700 04/14/17 [History Last Taken 04/12/17] etanercept [Enbrel] 50 mg SQ Q7D 04/14/17 [History Last Taken 04/12/17] folic acid 1 mg PO DAILY 04/14/17 [History Last Taken 04/13/17] methotrexate sodium 8 tab QWEEK 04/14/17 [History Last Taken 04/12/17] acetaminophen [Tylenol] 650 mg PO Q6H PRN PRN tablet 04/16/17 [Rx Last Taken Unknown] food supplemt, lactose-reduced 120 ml PO 4X/DAY #100 liquid 04/16/17 [Rx Last Taken Unknown] oseltamivir 75 mg PO BID #8 bottle 04/16/17 [Rx Last Taken Unknown] Allergy/AdvReac Type Severity Reaction Status Date / Time No Known Allergies Allergy Verified 04/14/17 18:00 Family History (Updated 03/11/21 @ 19:[address] Ligia Driscoll MD) Mother No problems noted. Father Cancer liver Family History unable to obtain Surgical History unable to obtain Social History household members: spouse housing: house Smoking Status: Current every day smoker tobacco type: cigarettes Electronic Cigarette Use: with nicotine alcohol intake: never substance use type: does not use Physical Exam Const alert, oriented x3 and no apparent distress General Appearance: cooperative Exam Limitations: no limitations HEENT normocephalic and head/scalp atraumatic Eyes PERRL and EOMs intact bilaterally Neck supple and No nodes Resp normal air movement and clear to auscultation bilaterally Cardio regular rate and regular rhythm GI normal to inspection, nondistended, normoactive bowel sounds Extremity no clubbing, cyanosis or edema Skin no rashes or lesions noted Skin Narrative: No splinter hemorrhages Neuro CN's II-XII intact bilaterally Lab / Micro Data Result Diagrams: 03/12/21 03:05 03/12/21 03:05 Labs: Laboratory Results - last 24 hr 03/11/21 12:35: WBC 6.5, RBC 5.05, Hgb 15.5 H, Hct 45.9, MCV 90.9, MCH 30.7, MCHC 33.8, RDW Std Deviation 45.1 H, RDW Coeff of Clair 13.3, Plt Count 201, MPV 11.5, Immature Gran % (Auto) 0.300, Neut % (Auto) 77.0 H, Lymph % (Auto) 10.8 L, [place] % (Auto) 9.9, Eos % (Auto) 1.5, Baso % (Auto) 0.5, Absolute Neuts (auto) 5.0, Absolute Lymphs (auto) 0.70 L, Nucleated RBC % 0 03/11/21 12:35: PT 13.1, INR 1.0, APTT 26.8 03/11/21 12:35: Sodium 136, Potassium 4.3, Chloride 106, Carbon Dioxide 27.0, Anion Gap 3 L, BUN 14, Creatinine 0.89, Estim Creat Clear Calc 40.54, Est GFR (MDRD) Af Amer 79, Est GFR (MDRD) Non-Af 65, BUN/Creatinine Ratio 15.7, Glucose 117 H, Calcium 9.0, Total Bilirubin 0.70, AST 24, ALT 23, Alkaline Phosphatase 68, Troponin I High Sens 28, Total Protein 7.3, Albumin 3.7, Globulin 3.6, Albumin/Globulin Ratio 1.0 03/11/21 12:35: Lactic Acid 1.2 03/11/21 14:44: Urine Color Yellow, Urine Clarity Clear, Urine pH 6.5, Ur Specific [place] 1.015, Urine Protein 15 H, Urine Glucose (UA) Normal, Urine Ketones 5 H, Urine Occult Blood 50 H, Urine Nitrite Negative, Urine Bilirubin Negative, Urine Urobilinogen 1 H, Ur Leukocyte Esterase Negative, Urine RBC 10- 25 SEEN, Urine WBC 0-5 SEEN, Ur Squamous Epith Cells 0 SEEN, Urine Bacteria 0 SEEN, Urine Mucus 0 SEEN 03/11/21 14:44: Urine Opiates Screen NEGATIVE, Urine Methadone Screen NEGATIVE, Ur Barbiturates Screen NEGATIVE, Ur Phencyclidine Scrn NEGATIVE, Ur Amphetamines Screen NEGATIVE, U Methamphetamin-MDMA NEGATIVE, U Benzodiazepines Scrn NEGATIVE, Urine Cocaine Screen NEGATIVE, U Cannabinoids Screen NEGATIVE, Ur Drug Screen Comment 03/11/21 16:37: COVID-19 (KIRBY) Not Detected 03/11/21 19:20: Troponin I High Sens 30 03/11/21 20:54: Troponin I High Sens 28 03/12/21 03:05: WBC 4.3 L, RBC 4.40, Hgb 13.5, Hct 40.6, MCV 92.3, MCH 30.7, MCHC 33.3, RDW Std Deviation 45.0 H, RDW Coeff of Clair 13.3, Plt Count 144 L, MPV 11.8, Immature Gran % (Auto) 0.200, Neut % (Auto) 55.2, Lymph % (Auto) 27.2, [place] % (Auto) 16.7 H, Eos % (Auto) 0.2, Baso % (Auto) 0.5, Absolute Neuts (auto) 2.4, Absolute Lymphs (auto) 1.16, Nucleated RBC % 0 03/12/21 03:05: Sodium 139, Potassium 3.7, Chloride 109 H, Carbon Dioxide 24.0, Anion Gap 6, BUN 16, Creatinine 0.69, Estim Creat Clear Calc 34.42, Est GFR (MDRD) Af Amer 105, Est GFR (MDRD) Non-Af 87, BUN/Creatinine Ratio 23.1 H, Glucose 95, Calcium 8.3 L, Total Bilirubin 0.50, AST 21, ALT 18, Alkaline Phosphatase 52, Total Protein 5.9 L, Albumin 3.0 L, Globulin 2.9, Albumin/Globulin Ratio 1.0, Triglycerides 86, Cholesterol 108, LDL Cholesterol 50, VLDL Cholesterol 17, HDL Cholesterol 41 03/12/21 : Troponin I High Sens 29 Micro: Microbiology 03/11/21 14:44 Interface Orders Urine Culture - Preliminary Culture exhibits no growth. 03/11/21 12:35 Blood Culture (Wb) - Anticubital Left Blood Culture - Pre liminary 03/11/21 15:38 Nasal Secretion SARS-CoV-2 Antigen (Rapid) - Final Radiology Impression Brain CT 03/11/21 12:43 IMPRESSION: 1. No acute abnormality. 2. Chronic microvascular changes. Individualized dose optimization techniques were used for this CT. at 1341 Reported and signed by: Oli Parks MD Electronically Signed: Oli Parks MD at 13:39 EST , Chest X-Ray 03/11/21 13:05 IMPRESSION: Hyperinflation. Stable calcified granulomas in the left upper lobe. Electronically Signed: Pete Bustamante MD at 13:46 EST ,
--- NOTE | 2021-03-12 14:44 | PCM.RX.CS ---
Consult Pharmacy has been consulted to manage selected antiobiotic: Vancomycin Type of Consult: New start Labs: Sodium 139 mmol/L (136-145) 03/12/21 03:05 Potassium 3.7 mmol/L (3.5-5.1) 03/12/21 03:05 Chloride 109 mmol/L (98-107) H 03/12/21 03:05 Carbon Dioxide 24.0 mmol/L (21.0-32.0) 03/12/21 03:05 Anion Gap 6 (5-15) 03/12/21 03:05 BUN 16 mg/dL (7-18) 03/12/21 03:05 Creatinine 0.69 mg/dL (0.55-1.02) 03/12/21 03:05 Est GFR (MDRD) Af Amer 105 mL/min (>60) 03/12/21 03:05 Est GFR (MDRD) Non-Af 87 mL/min (>60) 03/12/21 03:05 BUN/Creatinine Ratio 23.1 RATIO (10-20) H 03/12/21 03:05 Glucose 95 mg/dL (74-106) 03/12/21 03:05 Microbiology: Microbiology 03/11/21 14:44 Interface Orders Urine Culture - Preliminary Culture exhibits no growth. 03/11/21 12:35 Blood Culture (Wb) - Anticubital Left Blood Culture - Preliminary 03/11/21 15:38 Nasal Secretion SARS-CoV-2 Antigen (Rapid) - Final Goal Trough: 15-20 mcg/mL Pharmacy Plan for Drug Dosing: NEW START IV VANCOMYCIN Consulting Physician: Yamila Indication: Infection Goal Trough: 15-20 SrCr: 0.69 CrCl: ~43mls/min Comments: pt received a 1250mg x1 loading dose 03/12/21 at 0705 Vancomcyin Dose: based on pts weight and renal function, recommend an initial dose of 1000mg q24h starting 03/13/21 at 0700. trough before the 3rd dose Pending Level: 03/14/21 at 0630 Pharmacy Service will continue to monitor and adjust dosing as required. Follow-Up Labs: Trough Vancomycin - 03/14/21 at 0630
--- NOTE | 2021-03-12 14:45 | PN.HOSP_ITS ---
Subjective Subjective still confused Objective Data Objective Data Vital Signs: Vital Signs Temp Pulse Resp BP Pulse Ox 37.3 C H 88 18 124/70 H 95 03/12/21 14:00 03/12/21 14:00 03/12/21 14:00 03/12/21 14:00 03/12/21 14:00 Oxygen Delivery Method Room Air Weight: 53.8 kg Body Mass Index (BMI) 21.9 Intake & Output: Intake and Output for Last 24 Hours 03/10/21 03/11/21 03/12/21 23:59 23:59 23:59 Intake Total 500 / 500 1050 / 1050 Balance 500 / 500 1050 / 1050 Lab / Micro Data Result Diagrams: 03/12/21 03:05 03/12/21 03:05 Labs: Laboratory Results - last 24 hr 03/11/21 14:44: Urine Color Yellow, Urine Clarity Clear, Urine pH 6.5, Ur Spec ific [place] 1.015, Urine Protein 15 H, Urine Glucose (UA) Normal, Urine Ketones 5 H, Urine Occult Blood 50 H, Urine Nitrite Negative, Urine Bilirubin Negative, Urine Urobilinogen 1 H, Ur Leukocyte Esterase Negative, Urine RBC 10-25 SEEN, Urine WBC 0-5 SEEN, Ur Squamous Epith Cells 0 SEEN, Urine Bacteria 0 SEEN, Urine Mucus 0 SEEN 03/11/21 14:44: Urine Opiates Screen NEGATIVE, Urine Methadone Screen NEGATIVE, Ur Barbiturates Screen NEGATIVE, Ur Phencyclidine Scrn NEGATIVE, Ur Amphetamines Screen NEGATIVE, U Methamphetamin-MDMA NEGATIVE, U Benzodiazepines Scrn NEGATIVE, Urine Cocaine Screen NEGATIVE, U Cannabinoids Screen NEGATIVE, Ur Drug Screen Comment 03/11/21 16:37: COVID-19 (KIRBY) Not Detected 03/11/21 19:20: Troponin I High Sens 30 03/11/21 20:54: Troponin I High Sens 28 03/12/21 03:05: WBC 4.3 L, RBC 4.40, Hgb 13.5, Hct 40.6, MCV 92.3, MCH 30.7, MCHC 33.3, RDW Std Deviation 45.0 H, RDW Coeff of Clair 13.3, Plt Count 144 L, MPV 11.8, Immature Gran % (Auto) 0.200, Neut % (Auto) 55.2, Lymph % (Auto) 27.2, [place] % (Auto) 16.7 H, Eos % (Auto) 0.2, Baso % (Auto) 0.5, Absolute Neuts (auto) 2.4, Absolute Lymphs (auto) 1.16, Nucleated RBC % 0 03/12/21 03:05: Sodium 139, Potassium 3.7, Chloride 109 H, Carbon Dioxide 24.0, Anion Gap 6, BUN 16, Creatinine 0.69, Estim Creat Clear Calc 34.42, Est GFR (MDRD) Af Amer 105, Est GFR (MDRD) Non-Af 87, BUN/Creatinine Ratio 23.1 H, Glucose 95, Calcium 8.3 L, Total Bilirubin 0.50, AST 21, ALT 18, Alkaline Phosphatase 52, Total Protein 5.9 L, Albumin 3.0 L, Globulin 2.9, Albumin/Globulin Ratio 1.0, Triglycerides 86, Cholesterol 108, LDL Cholesterol 50, VLDL Cholesterol 17, HDL Cholesterol 41 03/12/21 : Troponin I High Sens 29 Micro: Microbiology 03/11/21 14:44 Interface Orders Urine Culture - Preliminary Culture exhibits no growth. 03/11/21 12:35 Blood Culture (Wb) - Anticubital Left Blood Culture - Preliminary 03/11/21 15:38 Nasal Secretion SARS-CoV-2 Antigen (Rapid) - Final Radiography Diagnostic Testing: Radiology Impression Brain MRI 03/11/21 19:42 IMPRESSION: 1. No acute abnormality. 2. White matter changes suggestive of chronic microvascular disease. at 1440 Reported and signed by: Oli Parks MD Electronically Signed: Oli Parks MD at 14:39 EST , Physical Exam Resp normal respiratory effort, no retractions, no use of accessory muscles and clear to auscultation bilaterally Cardio regular rate, regular rhythm, S1 normal heart sound and S2 normal heart sound GI normal to inspection, nondistended, normoactive bowel sounds, soft to palpation, non-tender and non-distended Assessment & Plan Assessment/Plan (1) Rheumatic arthritis of temporomandibular joint: (2) Encephalopathy: PLAN: 1. Acute metabolic versus infectious encephalopathy, unclear etiology Patient is immunocompromised; patient has been febrile here UA and chest x-ray are unremarkable COVID-19 rapid antigen and PCR are negative Blood and urine cultures taken from the ED Start on empiric Zosyn and vancomycin ID consult MRI of the brain; stroke work-up if MRI is positive 2. Rheumatoid arthritis, on Enbrel, methotrexate Home med list is yet to be clarified 3. Osteoporosis, continue on alendronate 4. DVT prophylaxis?Lovenox subcu 5. I discussed and explained in details the various types of CODE STATUS-full code, DNR CCA, DNR CC with the patient's . He stated that patient would like everything done to keep her alive as she is very active. Time spent discussing CODE STATUS 17 minutes Charges/Coding Visit Charges Inpatient E&M: 33793 Subs Hosp L2
[2021-03-12] MEDS: Atorvastatin Calcium 80 MG Tablet PO (20:31)
[2021-03-12] MEDS: Oseltamivir Phosphate 30 MG Capsule PO (20:31)
[2021-03-13 02:00] VITALS: BP 136/88; PULSE 76; PULSE 79; RESP 16; TEMP 36.5; O2SAT 97
[2021-03-13] MEDS: 0.9% Normal Saline 1,000 ML 100 ML IV (04:30)
[2021-03-13 04:50] LABS: Absolute Lymphocyte Count 1.51 X10^3/uL (0.83-4.51); Absolute Neutrophil Count 1.1 X10^3/uL (2.0-7.7); Basophil# 0.02 X10^3/uL; Basophil% 0.6 % (0-1); Eosinophil# 0.01 X10^3/uL; Eosinophils% 0.3 % (0-5); Hematocrit 37.4 % (37-47); Hemoglobin 12.9 g/dL (12.0-15.0); Lymphocyte # 1.51 X10^3/ul (0.83-4.51); Lymphocyte % 45.1 % (19-41); Mean Corp Hgb Conc 34.5 g/dL (32-36); Mean Corpuscular Hgb 31.1 pg (27.0-32.0); Mean Corpuscular Volume 90.1 fL (81-99); Mean Platelet Vol. 11.7 fl (6.2-12.0); Monocyte% 20.9 % (0-10); NRBC Flagged by Analyzer 0 % (0-5); Neutrophil % 32.8 % (47-70); Platelet Count 129 K/mm3 (150-450); RBC Distribution Width CV 13.4 % (11.6-14.6); RBC Distribution Width SD 44.4 fl (35.1-43.9); Red Blood Count 4.15 M/mm3 (4.2-5.4); White Blood Count 3.4 K/mm3 (4.4-11.0)
[2021-03-13 05:07] LABS: ALB/GLOB Ratio 0.9 RATIO (0.9-2.4); AST(SGOT) 26 U/L (15-37); Alanine Aminotransfer ALT/SGPT 21 U/L (13-56); Albumin, Serum 2.8 g/dL (3.2-5.0); Alkaline Phosphatase 49 U/L (45-117); Anion Gap 6 (5-15); BUN 14 mg/dL (7-18); BUN/Creat Ratio 19.8 RATIO (10-20); Calcium,Total 8.1 mg/dL (8.5-10.1); Chloride 110 mmol/L (98-107); Creatinine, Serum 0.71 mg/dL (0.55-1.02); EST Glomerular Filtration Rate 85 mL/min (>60); Est Glom Filt Rate - Afr Amer 103 mL/min (>60); Estimated Creatinine Clearance 34.42 ml/min; Glucose 83 mg/dL (74-106); Potassium 3.7 mmol/L (3.5-5.1); Protein, Total 5.8 g/dL (6.4-8.2); Sodium Level 138 mmol/L (136-145)
[2021-03-13 07:00] VITALS: PULSE 74
[2021-03-13 07:39] VITALS: O2SAT 93
[2021-03-13 08:00] VITALS: BP 171/78; PULSE 84; RESP 18; TEMP 36.6; O2SAT 92
[2021-03-13] MEDS: Vancomycin IV 1,000 MG/200 ML BAG 200 MG IV (08:05)
[2021-03-13] MEDS: Oseltamivir Phosphate 30 MG Capsule PO (08:14)
[2021-03-13] MEDS: Aspirin 81 MG TAB.CHEW PO (08:14)
[2021-03-13] MEDS: Enoxaparin 30 MG/0.3 ML Syringe SC (08:14)
--- NOTE | 2021-03-13 09:04 | PCM.DC ---
Discharge Instructions Diet Discharge Diet: No restrictions Activity Discharge Activity: Return to Normal Activity Dressing / Incision Call your doctor if you observe: Fever of 101 or Higher, Shortness of breath and - (confusion) Follow Up Care Test Results: Test results from this visit will be discussed in further detail at your follow-up appointment, if applicable. Discharge Plan Admission Admit Date/Time: 03/11/21 16:51 Primary Reason for Your Visit: Metabolic encephalopathy. Influenza A Attending Provider: Silas Luna Primary Care Provider: Pancho Costello Consulting Providers: Alfred Lowery Discharge Orders/Prescriptions Prescriptions: New oseltamivir [Tamiflu] 75 mg capsule 75 mg PO BID 4 Days Qty: 8 RF: 0 Continued alendronate 70 MG tablet 70 mg PO Q7D@0700 RF: 0 etanercept [Enbrel] 50 MG/ML syringe 50 mg SQ Q7D RF: 0 methotrexate sodium 2.5 MG tablet 8 tab QWEEK RF: 0 folic acid 1 MG tablet 1 mg PO DAILY RF: 0 acetaminophen [Tylenol] 325 MG tablet 650 mg PO Q6H PRN PRN (Reason: Fever, headache, pain) RF: 0 food supplemt, lactose-reduced 120 ML liquid 120 ml PO 4X/DAY Qty: 100 RF: 0 Discontinued oseltamivir 6 MG/ML bottle 75 mg PO BID Qty: 8 RF: 0 Referrals / Follow Up: Pancho Costello MD [Primary Care Provider] - Within 1 Week Disposition Disposition (needs filled in before D/C Order can be placed): Home, Self Care
--- NOTE | 2021-03-13 09:10 | PCM.DC.SUM ---
Providers Date of Admission: 03/11/21 Primary Care Physician: Dr. Pancho Costello MD Consultations 03/11/21 19:46 Consult: Infectious Disease Routine Consulting Provider: Alfred Lowery Reason for Consult: Encephalopathy EMERGENT Consult: No MD Notified: Yes Date Notified: 03/12/21 Time Notified: 06:39 Method of Notification: Text Reason For Visit: ACUTE METABOLIC ENCEPHALOPATHY Diagnosis Discharge Diagnosis (1) Rheumatic arthritis of temporomandibular joint: Status: Acute Code(s): M06.9 - Rheumatoid arthritis, unspecified (2) Encephalopathy: Status: Acute Code(s): G93.40 - Encephalopathy, unspecified (3) Influenza A: Status: Acute Code(s): J10.1 - Influenza due to other identified influenza virus with other respiratory manifestations Medications at Discharge Home Medications Enbrel 50 mg SQ Q7D 04/14/17 alendronate 70 mg PO Q7D@0700 04/14/17 folic acid 1 mg PO DAILY 04/14/17 methotrexate sodium 8 tab QWEEK 04/14/17 acetaminophen [Tylenol] 650 mg PO Q6H PRN PRN tablet 04/16/17 food supplemt, lactose-reduced 120 ml PO 4X/DAY 03/13/21 oseltamivir [Tamiflu] 75 mg PO BID 4 Days #8 cap 03/13/21 Hospital Course Operations None Procedures None Summary of Care Provided Minutes Spent on Discharge: 28 Hospital Course: 81-year-old female presents with confusion. Had some episode 5 weeks prior at an outside hospital due to UTI. Patient is immunosuppressive due to rheumatoid arthritis and medication that she takes for that disease patient started on broad-spectrum antibiotics and seen by infectious disease. Blood culture came back showing 1 of 2 sets positive for coag negative staph and that is likely contaminant. Respiratory panel came back positive for influenza A. Patient is unvaccinated for influenza this year. Patient started on Tamiflu but overall she has much improved and will be discharged home. Patient is unvaccinated for COVID-19 without a specific reason. Patient was offered the opportunity to receive at least the first of 2 vaccines she is in the hospital. Patient was noncommittal either way. Strongly recommend that she do get the vaccine in can follow-up with primary care doctor or go to a pharmacy to get that addressed. Physical Exam Const alert and oriented x3 General Appearance: cooperative Resp normal respiratory effort, no retractions, no use of accessory muscles and clear to auscultation bilaterally Cardio regular rate, regular rhythm, S1 normal heart sound and S2 normal heart sound GI normal to inspection, nondistended, normoactive bowel sounds, soft to palpation, non-tender and non-distended Extremity normal to inspection Weight / BMI Weight Weight: 54.5 kg Body Mass Index (BMI) 21.9 ABG / Lab / Microbiology Data Result Diagrams: 03/13/21 03:42 03/13/21 03:42 Laboratory: Laboratory Results - last 24 hr 03/13/21 03:42: WBC 3.4 L, RBC 4.15 L, Hgb 12.9, Hct 37.4, MCV 90.1, MCH 31.1, MCHC 34.5, RDW Std Deviation 44.4 H, RDW Coeff of Clair 13.4, Plt Count 129 L, MPV 11.7, Immature Gran % (Auto) 0.300, Neut % (Auto) 32.8 L, Lymph % (Auto) 45.1 H, [place] % (Auto) 20.9 H, Eos % (Auto) 0.3, Baso % (Auto) 0.6, Absolute Neuts (auto) 1.1 L, Absolute Lymphs (auto) 1.51, Nucleated RBC % 0 03/13/21 03:42: Sodium 138, Potassium 3.7, Chloride 110 H, Carbon Dioxide 22.0, Anion Gap 6, BUN 14, Creatinine 0.71, Estim Creat Clear Calc 34.42, Est GFR (MDRD) Af Amer 103, Est GFR (MDRD) Non-Af 85, BUN/Creatinine Ratio 19.8, Glucose 83, Calcium 8.1 L, Total Bilirubin 0.60, AST 26, ALT 21, Alkaline Phosphatase 49, Total Protein 5.8 L, Albumin 2.8 L, Globulin 3.0, Albumin/Globulin Ratio 0.9 Microbiology: Microbiology 03/11/21 12:35 Blood Culture (Wb) - Anticubital Left Blood Culture - Preliminary Coag Negative Staph 03/12/21 14:10 Mucosa - Nose Respiratory Panel (PCR) - Final Influenza A (Subtype H3) 03/11/21 14:44 Interface Orders Urine Culture - Preliminary Culture exhibits no growth. 03/11/21 15:38 Nasal Secretion SARS-CoV-2 Antigen (Rapid) - Final Radiography Diagnostic Testing: Radiology Impression Brain MRI 03/11/21 19:42 IMPRESSION: 1. No acute abnormality. 2. White matter changes suggestive of chronic microvascular disease. at 1440 Reported and signed by: Oli Parks MD Electronically Signed: Oli Parks MD at 14:39 EST , D/C Instructions Discharge Diet: No restrictions Call your doctor if you observe: Fever of 101 or Higher, Shortness of breath and - (confusion) Meaningful Use Info Meaningful Use Diagnoses (Choose all that apply): None applicable Discharge Plan Admission Admit Date/Time: 03/11/21 16:51 Primary Reason for Your Visit: Metabolic encephalopathy. Influenza A Attending Provider: Silas Luna Primary Care Provider: Pancho Costello Consulting Providers: Alfred Lowery Discharge Orders/Prescriptions Prescriptions: New oseltamivir [Tamiflu] 75 mg capsule 75 mg PO BID 4 Days Qty: 8 RF: 0 Continued alendronate 70 MG tablet 70 mg PO Q7D@0700 RF: 0 Enbrel 50 MG/ML syringe 50 mg SQ Q7D RF: 0 methotrexate sodium 2.5 MG tablet 8 tab QWEEK RF: 0 folic acid 1 MG tablet 1 mg PO DAILY RF: 0 acetaminophen [Tylenol] 325 MG tablet 650 mg PO Q6H PRN PRN (Reason: Fever, headache, pain) RF: 0 Discontinued oseltamivir 6 MG/ML bottle 75 mg PO BID Qty: 8 RF: 0 No Action food supplemt, lactose-reduced 120 ML liquid 120 ml PO 4X/DAY RF: 0 Referrals / Follow Up: Pancho Costello MD [Primary Care Provider] - Within 1 Week Disposition Disposition (needs filled in before D/C Order can be placed): Home, Self Care Charges/Coding Visit Charges Inpatient E&M: 50897 Disch Hosp
[2021-03-13 09:44] VITALS: BP 171/78; PULSE 84; RESP 18; TEMP 36.6; O2SAT 92
--- NOTE | 2021-03-13 10:06 | CASEMGMT ---
This RN CM to room to discuss d/c plan and pt states no concerns with going home at discharge. Pt is A/Ox4 and states no need for any further therapy. Pt voices no further questions/concerns/needs. SStaten RN CM
[2021-03-13 11:00] VITALS: PULSE 79
== END 2021-03-13 12:15 | disposition home or self-care (01) | DRG 194 ==
LOC: ED 16:58 → PCU 17:08
PROVIDERS: Admitting Provider Internal Medicine; Emergency Provider Emergency Medicine; PCP Family Medicine
DX: J10.1 Influenza due to other identified influenza virus with other respiratory manifestations (principal); G93.40 Encephalopathy, unspecified; D84.821 Immunodeficiency due to drugs; M06.9 Rheumatoid arthritis, unspecified; F17.210 Nicotine dependence, cigarettes, uncomplicated; T39.4X5A Adverse effect of antirheumatics, not elsewhere classified, initial encounter; M81.0 Age-related osteoporosis without current pathological fracture; Z79.83 Long term (current) use of bisphosphonates; Z79.899 Other long term (current) drug therapy
CPT/HCPCS: 36415; 70450; 70551; 71045; 80053; 80061; 80307; 81001; 83605; 84484; 85025; 85610; 85730; 87040; 87086; 87426; 87633; 87635; 92526; 92610; 93005; 97802; 99285; 99406; J7030; J7040; J7050; A4216; U0003; U0005

== ENCOUNTER 2021-04-03 10:53 | Outpatient (CLI) | payer MEDICARE, SELFPAY ==
[2021-04-03 12:23] LABS: Absolute Lymphocyte Count 3.34 X10^3/uL (0.83-4.51); Absolute Neutrophil Count 2.5 X10^3/uL (2.0-7.7); Basophil# 0.03 X10^3/uL; Basophil% 0.5 % (0-1); Hematocrit 45.3 % (37-47); Hemoglobin 15.2 g/dL (12.0-15.0); Lymphocyte # 3.34 X10^3/ul (0.83-4.51); Lymphocyte % 50.4 % (19-41); Mean Corp Hgb Conc 33.6 g/dL (32-36); Mean Corpuscular Hgb 31.1 pg (27.0-32.0); Mean Corpuscular Volume 92.6 fL (81-99); Mean Platelet Vol. 11.8 fl (6.2-12.0); Monocyte# 0.58 X10^3/uL; Monocyte% 8.7 % (0-10); NRBC Flagged by Analyzer 0 % (0-5); Neutrophil # 2.46 X10^3/uL (2.7-7.7); Neutrophil % 37.1 % (47-70); Platelet Count 241 K/mm3 (150-450); RBC Distribution Width SD 43.3 fl (35.1-43.9); Red Blood Count 4.89 M/mm3 (4.2-5.4); White Blood Count 6.6 K/mm3 (4.4-11.0)
[2021-04-03 12:51] LABS: AST(SGOT) 19 U/L (15-37); Alanine Aminotransfer ALT/SGPT 22 U/L (13-56); Albumin, Serum 3.8 g/dL (3.2-5.0); Alkaline Phosphatase 71 U/L (45-117); Anion Gap 5 (5-15); BUN 15 mg/dL (7-18); BUN/Creat Ratio 18.8 RATIO (10-20); Calcium,Total 9.5 mg/dL (8.5-10.1); Chloride 105 mmol/L (98-107); EST Glomerular Filtration Rate 74 mL/min (>60); Est Glom Filt Rate - Afr Amer 89 mL/min (>60); Globulin 3.9 g/dL (2.2-4.2); Glucose 121 mg/dL (74-106); Protein, Total 7.7 g/dL (6.4-8.2); Sodium Level 138 mmol/L (136-145)
== END 2021-04-03 23:59 | disposition home or self-care (01) ==
LOC: MTLAB 10:55
PROVIDERS: PCP Family Medicine; Referring Provider Internal Medicine Rheumatology; Visit Provider Internal Medicine Rheumatology
DX: M06.032 Rheumatoid arthritis without rheumatoid factor, left wrist (principal); J44.9 Chronic obstructive pulmonary disease, unspecified; M81.0 Age-related osteoporosis without current pathological fracture; I10 Essential (primary) hypertension; K57.90 Diverticulosis of intestine, part unspecified, without perforation or abscess without bleeding; N20.0 Calculus of kidney; Z79.899 Other long term (current) drug therapy
CPT/HCPCS: 36415; 80053; 85025

== ENCOUNTER → 2021-07-03 | Outpatient (CLI) | payer MEDICARE, SELFPAY ==
[2021-07-03 12:23] LABS: Absolute Lymphocyte Count 2.27 X10^3/uL (0.83-4.51); Absolute Neutrophil Count 2.3 X10^3/uL (2.0-7.7); Basophil# 0.05 X10^3/uL; Basophil% 0.9 % (0-1); Eosinophil# 0.38 X10^3/uL; Eosinophils% 6.9 % (0-5); Hematocrit 46.8 % (37-47); Hemoglobin 15.4 g/dL (12.0-15.0); Lymphocyte # 2.27 X10^3/ul (0.83-4.51); Lymphocyte % 41.3 % (19-41); Mean Corp Hgb Conc 32.9 g/dL (32-36); Mean Corpuscular Hgb 30.3 pg (27.0-32.0); Mean Corpuscular Volume 91.9 fL (81-99); Mean Platelet Vol. 11.3 fl (6.2-12.0); Monocyte# 0.52 X10^3/uL; Monocyte% 9.5 % (0-10); NRBC Flagged by Analyzer 0 % (0-5); Neutrophil # 2.25 X10^3/uL (2.7-7.7); Platelet Count 217 K/mm3 (150-450); RBC Distribution Width CV 13.2 % (11.6-14.6); RBC Distribution Width SD 44.8 fl (35.1-43.9); Red Blood Count 5.09 M/mm3 (4.2-5.4); White Blood Count 5.5 K/mm3 (4.4-11.0)
[2021-07-03 13:03] LABS: BUN 16 mg/dL (7-18); Creatinine, Serum 0.86 mg/dL (0.55-1.02); Glucose 107 mg/dL (74-106)
[2021-07-03 13:04] LABS: AST(SGOT) 18 U/L (15-37); Alanine Aminotransfer ALT/SGPT 26 U/L (13-56); Albumin, Serum 3.8 g/dL (3.2-5.0); Alkaline Phosphatase 75 U/L (45-117); Anion Gap 4 (5-15); BUN/Creat Ratio 18.7 RATIO (10-20); Calcium,Total 9.3 mg/dL (8.5-10.1); Chloride 107 mmol/L (98-107); EST Glomerular Filtration Rate 68 mL/min (>60); Est Glom Filt Rate - Afr Amer 82 mL/min (>60); Globulin 3.8 g/dL (2.2-4.2); Potassium 4.3 mmol/L (3.5-5.1); Protein, Total 7.6 g/dL (6.4-8.2); Sodium Level 138 mmol/L (136-145)
== END | disposition home or self-care (01) ==
LOC: MTLAB 11:05
PROVIDERS: PCP Family Medicine; Referring Provider Internal Medicine Rheumatology; Visit Provider Internal Medicine Rheumatology
DX: M06.00 Rheumatoid arthritis without rheumatoid factor, unspecified site (principal); J44.9 Chronic obstructive pulmonary disease, unspecified; M18.12 Unilateral primary osteoarthritis of first carpometacarpal joint, left hand; M81.0 Age-related osteoporosis without current pathological fracture; I10 Essential (primary) hypertension; K57.90 Diverticulosis of intestine, part unspecified, without perforation or abscess without bleeding; N20.0 Calculus of kidney; Z79.899 Other long term (current) drug therapy
CPT/HCPCS: 36415; 80053; 85025

== ENCOUNTER → 2021-10-03 | Outpatient (CLI) | payer MEDICARE, SELFPAY ==
[2021-10-03 11:57] LABS: Absolute Lymphocyte Count 2.16 X10^3/uL (0.83-4.51); Absolute Neutrophil Count 4.3 X10^3/uL (2.0-7.7); Basophil# 0.08 X10^3/uL; Eosinophil# 0.23 X10^3/uL; Hemoglobin 16.4 g/dL (12.0-15.0); Lymphocyte # 2.16 X10^3/ul (0.83-4.51); Lymphocyte % 28.3 % (19-41); Mean Corp Hgb Conc 34.9 g/dL (32-36); Mean Corpuscular Volume 91.6 fL (81-99); Mean Platelet Vol. 10.9 fl (6.2-12.0); Monocyte% 9.2 % (0-10); NRBC Flagged by Analyzer 0 % (0-5); Neutrophil # 4.31 X10^3/uL (2.7-7.7); Neutrophil % 56.7 % (47-70); Platelet Count 243 K/mm3 (150-450); RBC Distribution Width CV 13.7 % (11.6-14.6); RBC Distribution Width SD 46.6 fl (35.1-43.9); Red Blood Count 5.13 M/mm3 (4.2-5.4); White Blood Count 7.6 K/mm3 (4.4-11.0)
[2021-10-03 12:06] LABS: ALB/GLOB Ratio 0.8 RATIO (0.9-2.4); AST(SGOT) 15 U/L (15-37); Alanine Aminotransfer ALT/SGPT 25 U/L (13-56); Albumin, Serum 3.4 g/dL (3.2-5.0); Alkaline Phosphatase 90 U/L (45-117); Anion Gap 5 (5-15); BUN 25 mg/dL (7-18); BUN/Creat Ratio 27.5 RATIO (10-20); Calcium,Total 9.3 mg/dL (8.5-10.1); Chloride 105 mmol/L (98-107); Creatinine, Serum 0.91 mg/dL (0.55-1.02); EST Glomerular Filtration Rate 63 mL/min (>60); Est Glom Filt Rate - Afr Amer 77 mL/min (>60); Globulin 4.2 g/dL (2.2-4.2); Glucose 123 mg/dL (74-106); Potassium 4.4 mmol/L (3.5-5.1); Protein, Total 7.6 g/dL (6.4-8.2); Sodium Level 138 mmol/L (136-145)
== END | disposition home or self-care (01) ==
LOC: MTLAB 10:15
PROVIDERS: PCP Family Medicine; Referring Provider Internal Medicine Rheumatology; Visit Provider Internal Medicine Rheumatology
DX: M06.00 Rheumatoid arthritis without rheumatoid factor, unspecified site (principal); J44.9 Chronic obstructive pulmonary disease, unspecified; M18.12 Unilateral primary osteoarthritis of first carpometacarpal joint, left hand; M81.0 Age-related osteoporosis without current pathological fracture; I10 Essential (primary) hypertension; K57.90 Diverticulosis of intestine, part unspecified, without perforation or abscess without bleeding; N20.0 Calculus of kidney; Z79.899 Other long term (current) drug therapy
CPT/HCPCS: 36415; 80053; 85025

== ENCOUNTER → 2021-12-31 | Outpatient (CLI) | payer MEDICARE, SELFPAY ==
[2021-12-31 15:30] LABS: Absolute Lymphocyte Count 2.43 X10^3/uL (0.83-4.51); Absolute Neutrophil Count 4.4 X10^3/uL (2.0-7.7); Basophil# 0.05 X10^3/uL; Basophil% 0.7 % (0-1); Eosinophil# 0.13 X10^3/uL; Eosinophils% 1.7 % (0-5); Hematocrit 43.2 % (37-47); Hemoglobin 14.8 g/dL (12.0-15.0); Lymphocyte # 2.43 X10^3/ul (0.83-4.51); Lymphocyte % 31.8 % (19-41); Mean Corp Hgb Conc 34.3 g/dL (32-36); Mean Corpuscular Volume 93.5 fL (81-99); Mean Platelet Vol. 11.2 fl (6.2-12.0); Monocyte# 0.56 X10^3/uL; Monocyte% 7.3 % (0-10); NRBC Flagged by Analyzer 0 % (0-5); Neutrophil # 4.42 X10^3/uL (2.7-7.7); Platelet Count 218 K/mm3 (150-450); RBC Distribution Width CV 13.6 % (11.6-14.6); RBC Distribution Width SD 46.5 fl (35.1-43.9); Red Blood Count 4.62 M/mm3 (4.2-5.4); White Blood Count 7.6 K/mm3 (4.4-11.0)
[2021-12-31 15:57] LABS: ALB/GLOB Ratio 0.9 RATIO (0.9-2.4); AST(SGOT) 18 U/L (15-37); Alanine Aminotransfer ALT/SGPT 23 U/L (13-56); Albumin, Serum 3.3 g/dL (3.2-5.0); Alkaline Phosphatase 64 U/L (45-117); Anion Gap 6 (5-15); BUN 19 mg/dL (7-18); BUN/Creat Ratio 17.1 RATIO (10-20); Calcium,Total 9.1 mg/dL (8.5-10.1); Chloride 109 mmol/L (98-107); Creatinine, Serum 1.11 mg/dL (0.55-1.02); EST Glomerular Filtration Rate 50 mL/min (>60); Est Glom Filt Rate - Afr Amer 61 mL/min (>60); Globulin 3.5 g/dL (2.2-4.2); Glucose 142 mg/dL (74-106); Potassium 4.3 mmol/L (3.5-5.1); Protein, Total 6.8 g/dL (6.4-8.2); Sodium Level 141 mmol/L (136-145)
== END | disposition home or self-care (01) ==
LOC: MTLAB 13:42
PROVIDERS: PCP Family Medicine; Referring Provider Internal Medicine Rheumatology; Visit Provider Internal Medicine Rheumatology
DX: M06.09 Rheumatoid arthritis without rheumatoid factor, multiple sites (principal); J44.9 Chronic obstructive pulmonary disease, unspecified; Z79.899 Other long term (current) drug therapy; M18.12 Unilateral primary osteoarthritis of first carpometacarpal joint, left hand; M25.511 Pain in right shoulder; I10 Essential (primary) hypertension; K57.90 Diverticulosis of intestine, part unspecified, without perforation or abscess without bleeding; N20.0 Calculus of kidney; M81.0 Age-related osteoporosis without current pathological fracture
CPT/HCPCS: 36415; 80053; 85025

== ENCOUNTER → 2022-01-21 | Outpatient (CLI) | payer MEDICARE, SELFPAY ==
[2022-01-21 15:36] LABS: ALB/GLOB Ratio 1.2 RATIO (0.9-2.4); AST(SGOT) 24 U/L (15-37); Alanine Aminotransfer ALT/SGPT 29 U/L (13-56); Albumin, Serum 3.8 g/dL (3.2-5.0); Alkaline Phosphatase 75 U/L (45-117); Anion Gap 6 (5-15); BUN 18 mg/dL (7-18); BUN/Creat Ratio 21.3 RATIO (10-20); Calcium,Total 9.5 mg/dL (8.5-10.1); Chloride 104 mmol/L (98-107); Creatinine, Serum 0.84 mg/dL (0.55-1.02); EST Glomerular Filtration Rate 69 mL/min (>60); Est Glom Filt Rate - Afr Amer 83 mL/min (>60); Globulin 3.3 g/dL (2.2-4.2); Glucose 104 mg/dL (74-106); Potassium 4.5 mmol/L (3.5-5.1); Protein, Total 7.1 g/dL (6.4-8.2); Sodium Level 139 mmol/L (136-145)
== END | disposition home or self-care (01) ==
LOC: MTLAB 11:41
PROVIDERS: PCP Family Medicine; Referring Provider Internal Medicine Rheumatology; Visit Provider Internal Medicine Rheumatology
DX: M06.09 Rheumatoid arthritis without rheumatoid factor, multiple sites (principal); Z79.899 Other long term (current) drug therapy
CPT/HCPCS: 36415; 80053

== ENCOUNTER → 2022-03-28 | Outpatient (CLI) | payer MEDICARE, SELFPAY ==
[2022-03-28 12:44] LABS: Absolute Lymphocyte Count 2.71 X10^3/uL (0.83-4.51); Absolute Neutrophil Count 3.5 X10^3/uL (2.0-7.7); Basophil# 0.05 X10^3/uL; Basophil% 0.7 % (0-1); Eosinophil# 0.27 X10^3/uL; Eosinophils% 3.8 % (0-5); Hematocrit 46.4 % (37-47); Hemoglobin 15.6 g/dL (12.0-15.0); Lymphocyte # 2.71 X10^3/ul (0.83-4.51); Lymphocyte % 38.3 % (19-41); Mean Corp Hgb Conc 33.6 g/dL (32-36); Mean Corpuscular Hgb 31.8 pg (27.0-32.0); Mean Corpuscular Volume 94.7 fL (81-99); Mean Platelet Vol. 11.6 fl (6.2-12.0); Monocyte# 0.55 X10^3/uL; Monocyte% 7.8 % (0-10); NRBC Flagged by Analyzer 0 % (0-5); Neutrophil # 3.47 X10^3/uL (2.7-7.7); Platelet Count 191 K/mm3 (150-450); RBC Distribution Width CV 13.2 % (11.6-14.6); White Blood Count 7.1 K/mm3 (4.4-11.0)
[2022-03-28 12:54] LABS: AST(SGOT) 21 U/L (15-37); Alanine Aminotransfer ALT/SGPT 22 U/L (13-56); Albumin, Serum 3.5 g/dL (3.2-5.0); Alkaline Phosphatase 62 U/L (45-117); Anion Gap 6 (5-15); BUN 18 mg/dL (7-18); BUN/Creat Ratio 18.6 RATIO (10-20); Calcium,Total 9.2 mg/dL (8.5-10.1); Chloride 106 mmol/L (98-107); Creatinine, Serum 0.97 mg/dL (0.55-1.02); EST Glomerular Filtration Rate 59 mL/min (>60); Est Glom Filt Rate - Afr Amer 71 mL/min (>60); Globulin 3.5 g/dL (2.2-4.2); Glucose 109 mg/dL (74-106); Potassium 4.1 mmol/L (3.5-5.1); Sodium Level 137 mmol/L (136-145)
== END | disposition home or self-care (01) ==
LOC: MTLAB 10:46
PROVIDERS: PCP Family Medicine; Referring Provider Internal Medicine Rheumatology; Visit Provider Internal Medicine Rheumatology
DX: M06.09 Rheumatoid arthritis without rheumatoid factor, multiple sites (principal); J44.9 Chronic obstructive pulmonary disease, unspecified; M18.12 Unilateral primary osteoarthritis of first carpometacarpal joint, left hand; M25.562 Pain in left knee; I10 Essential (primary) hypertension; K57.90 Diverticulosis of intestine, part unspecified, without perforation or abscess without bleeding; N20.0 Calculus of kidney; M81.0 Age-related osteoporosis without current pathological fracture
CPT/HCPCS: 36415; 80053; 85025

== ENCOUNTER → 2022-05-16 | Outpatient (CLI) | payer MEDICARE, SELFPAY ==
[2022-05-20 10:08] LABS: QNTFERON TB Mitogen Value > 10.00 IU/mL (.); QNTFERON TB Nil Value 0.16 IU/mL (.); QNTFERON TB1+ Ag Value 0.19 IU/mL (.); QNTFERON TB2+ Ag Value 0.47 IU/mL (.)
[2022-05-20 14:41] LABS: QNTIFERON TB Positive Criteria Negative (Negative)
== END | disposition home or self-care (01) ==
LOC: MTLAB 12:44
PROVIDERS: PCP Family Medicine; Referring Provider Internal Medicine Rheumatology; Visit Provider Internal Medicine Rheumatology
DX: M06.09 Rheumatoid arthritis without rheumatoid factor, multiple sites (principal); Z79.899 Other long term (current) drug therapy
CPT/HCPCS: 36415; 86480

== ENCOUNTER → 2022-06-18 | Outpatient (CLI) | payer MEDICARE, SELFPAY ==
[2022-06-18 12:45] LABS: Absolute Lymphocyte Count 2.98 X10^3/uL (0.83-4.51); Absolute Neutrophil Count 3.4 X10^3/uL (2.0-7.7); Basophil# 0.07 X10^3/uL; Eosinophil# 0.17 X10^3/uL; Eosinophils% 2.3 % (0-5); Hematocrit 47.1 % (37-47); Hemoglobin 16.2 g/dL (12.0-15.0); Lymphocyte # 2.98 X10^3/ul (0.83-4.51); Lymphocyte % 41.2 % (19-41); Mean Corp Hgb Conc 34.4 g/dL (32-36); Mean Corpuscular Hgb 31.7 pg (27.0-32.0); Mean Corpuscular Volume 92.2 fL (81-99); Mean Platelet Vol. 11.8 fl (6.2-12.0); Monocyte# 0.56 X10^3/uL; Monocyte% 7.7 % (0-10); NRBC Flagged by Analyzer 0 % (0-5); Neutrophil # 3.42 X10^3/uL (2.7-7.7); Neutrophil % 47.2 % (47-70); Platelet Count 221 K/mm3 (150-450); RBC Distribution Width CV 12.9 % (11.6-14.6); RBC Distribution Width SD 43.6 fl (35.1-43.9); Red Blood Count 5.11 M/mm3 (4.2-5.4); White Blood Count 7.2 K/mm3 (4.4-11.0)
[2022-06-18 13:13] LABS: ALB/GLOB Ratio 1.1 RATIO (0.9-2.4); AST(SGOT) 21 U/L (15-37); Alanine Aminotransfer ALT/SGPT 29 U/L (13-56); Albumin, Serum 3.9 g/dL (3.2-5.0); Alkaline Phosphatase 71 U/L (45-117); Anion Gap 7 (5-15); BUN 14 mg/dL (7-18); BUN/Creat Ratio 15.4 RATIO (10-20); Calcium,Total 9.5 mg/dL (8.5-10.1); Chloride 108 mmol/L (98-107); Creatinine, Serum 0.91 mg/dL (0.55-1.02); EST Glomerular Filtration Rate 63 mL/min (>60); Est Glom Filt Rate - Afr Amer 77 mL/min (>60); Globulin 3.4 g/dL (2.2-4.2); Glucose 112 mg/dL (74-106); Potassium 4.1 mmol/L (3.5-5.1); Protein, Total 7.3 g/dL (6.4-8.2); Sodium Level 139 mmol/L (136-145)
== END | disposition home or self-care (01) ==
LOC: MTLAB 10:49
PROVIDERS: PCP Family Medicine; Referring Provider Internal Medicine Rheumatology; Visit Provider Internal Medicine Rheumatology
DX: M06.09 Rheumatoid arthritis without rheumatoid factor, multiple sites (principal); Z79.899 Other long term (current) drug therapy
CPT/HCPCS: 36415; 80053; 85025

== ENCOUNTER → 2022-09-12 | Outpatient (CLI) | payer MEDICARE, SELFPAY ==
[2022-09-12 12:05] LABS: Basophil# 0.07 X10^3/uL; Eosinophil# 0.18 X10^3/uL; Eosinophils% 2.7 % (0-5); Hemoglobin 14.9 g/dL (12.0-15.0); Lymphocyte % 40.2 % (19-41); Mean Corp Hgb Conc 33.1 g/dL (32-36); Mean Corpuscular Hgb 30.6 pg (27.0-32.0); Mean Corpuscular Volume 92.4 fL (81-99); Mean Platelet Vol. 11.1 fl (6.2-12.0); Monocyte% 10.4 % (0-10); NRBC Flagged by Analyzer 0 % (0-5); Neutrophil # 3.03 X10^3/uL (2.7-7.7); Neutrophil % 45.1 % (47-70); POSITIVE MORPHOLOGY YES; Platelet Count 227 K/mm3 (150-450); RBC Distribution Width SD 44.1 fl (35.1-43.9); Red Blood Count 4.87 M/mm3 (4.2-5.4); White Blood Count 6.7 K/mm3 (4.4-11.0)
[2022-09-12 12:07] LABS: Differential Indicated SCAN CRITERIA MET
[2022-09-12 12:24] LABS: ALB/GLOB Ratio 0.8 RATIO (0.9-2.4); AST(SGOT) 18 U/L (15-37); Alanine Aminotransfer ALT/SGPT 26 U/L (13-56); Albumin, Serum 3.4 g/dL (3.2-5.0); Alkaline Phosphatase 69 U/L (45-117); Anion Gap 4 (5-15); BUN 11 mg/dL (7-18); BUN/Creat Ratio 13.3 RATIO (10-20); Calcium,Total 9.3 mg/dL (8.5-10.1); Chloride 106 mmol/L (98-107); Creatinine, Serum 0.83 mg/dL (0.55-1.02); EST Glomerular Filtration Rate 70 mL/min (>60); Est Glom Filt Rate - Afr Amer 85 mL/min (>60); Glucose 106 mg/dL (74-106); Potassium 4.3 mmol/L (3.5-5.1); Protein, Total 7.4 g/dL (6.4-8.2); Sodium Level 137 mmol/L (136-145)
[2022-09-12 12:59] LABS: Differential Comment SCANNED; Reactive Lymphocyte 2+
== END | disposition home or self-care (01) ==
LOC: MTLAB 10:53
PROVIDERS: PCP Family Medicine; Referring Provider Internal Medicine Rheumatology; Visit Provider Internal Medicine Rheumatology
DX: M06.00 Rheumatoid arthritis without rheumatoid factor, unspecified site (principal); Z79.899 Other long term (current) drug therapy
CPT/HCPCS: 36415; 80053; 85025

== ENCOUNTER → 2022-12-11 | Outpatient (CLI) | payer MEDICARE, SELFPAY ==
[2022-12-11 12:22] LABS: Absolute Lymphocyte Count 2.39 X10^3/uL (0.83-4.51); Absolute Neutrophil Count 4.1 X10^3/uL (2.0-7.7); Basophil# 0.04 X10^3/uL; Basophil% 0.5 % (0-1); Eosinophil# 0.16 X10^3/uL; Eosinophils% 2.1 % (0-5); Hematocrit 46.2 % (37-47); Hemoglobin 15.5 g/dL (12.0-15.0); Lymphocyte # 2.39 X10^3/ul (0.83-4.51); Mean Corp Hgb Conc 33.5 g/dL (32-36); Mean Corpuscular Hgb 30.5 pg (27.0-32.0); Mean Corpuscular Volume 90.9 fL (81-99); Mean Platelet Vol. 11.3 fl (6.2-12.0); Monocyte# 0.71 X10^3/uL; Monocyte% 9.5 % (0-10); NRBC Flagged by Analyzer 0 % (0-5); Neutrophil # 4.13 X10^3/uL (2.7-7.7); Neutrophil % 55.5 % (47-70); Platelet Count 252 K/mm3 (150-450); RBC Distribution Width CV 13.1 % (11.6-14.6); RBC Distribution Width SD 44.4 fl (35.1-43.9); Red Blood Count 5.08 M/mm3 (4.2-5.4); White Blood Count 7.5 K/mm3 (4.4-11.0)
[2022-12-11 12:46] LABS: AST(SGOT) 23 U/L (15-37); Alanine Aminotransfer ALT/SGPT 31 U/L (13-56); Albumin, Serum 3.6 g/dL (3.2-5.0); Alkaline Phosphatase 66 U/L (45-117); Anion Gap 5 (5-15); BUN 16 mg/dL (7-18); BUN/Creat Ratio 17.1 RATIO (10-20); Calcium,Total 9.4 mg/dL (8.5-10.1); Chloride 107 mmol/L (98-107); Creatinine, Serum 0.93 mg/dL (0.55-1.02); EST Glomerular Filtration Rate 61 mL/min (>60); Est Glom Filt Rate - Afr Amer 74 mL/min (>60); Globulin 3.6 g/dL (2.2-4.2); Glucose 108 mg/dL (74-106); Potassium 4.5 mmol/L (3.5-5.1); Protein, Total 7.2 g/dL (6.4-8.2); Sodium Level 139 mmol/L (136-145)
== END | disposition home or self-care (01) ==
LOC: MTLAB 11:30
PROVIDERS: PCP Family Medicine; Referring Provider Internal Medicine Rheumatology; Visit Provider Internal Medicine Rheumatology
DX: M06.00 Rheumatoid arthritis without rheumatoid factor, unspecified site (principal); M18.12 Unilateral primary osteoarthritis of first carpometacarpal joint, left hand; M47.897 Other spondylosis, lumbosacral region; I10 Essential (primary) hypertension; Z79.899 Other long term (current) drug therapy
CPT/HCPCS: 36415; 80053; 85025

== ENCOUNTER → 2023-02-25 | Outpatient (CLI) | payer MEDICARE, SELFPAY ==
--- OUTSIDE RECORDS SUMMARY | 2023-02-25 11:46 | XMS RPT_ITS | CCD ---
Author Name Unknown Address [address] [place] [address] Organization [facility] Care Team Providers Care Radio Station Engineer Name Role Phone CHARLOTTE ANDERSON Unavailable HECTOR Calix Unavailable Unavailable CHARLOTTE ANDERSON Unavailable Hector Calix Unavailable Hector Calix Unavailable Larisa ORTEZ MD, DR YOUNG Primary Care Physician NEELIMA RICHARDSON, DR YOUNG Primary Care Physician [phone] Hector Ortez MD Primary Care Provider Mark Edward MD Unavailable [phone] HECTOR ORTEZ Referring Unavailable HECTOR ORTEZ Primary Care Unavailable HECTOR ORTEZ Attending Unavailable HECTOR ORTEZ Primary Care Unavailable HERNESTO GALVIN Attending Unavailable HECTOR ORTEZ Primary Care Unavailable POLLO CASILLAS, DR KAYLA Pa Attending Unavailable NEELIMA RICHARDSON, DR YOUNG Primary Care Unavailab mike ORTEZ MD, DR YOUNG Primary Care Unavailab JONATHAN Babb Referring JONATHAN [place] Admitting TESS Trivedi MD Attending Unavailable LAURA RICHARDSON, TESS Consulting Larisa ORTEZ MD, DR YOUNG Consulting Unavailab mike Medications Current Medications Medication Drug Class(es) Dates Sig (Normalized) Sig (Original) alendronic acid 70 mg oral tablet (4 sources) Bisphosphonate Start: 12-04-2020 Fosamax 70 mg oral tablet Dose : 70 mg = 1 tab(s), Oral, Daily, 0 Refill(s) Start Date: 12/04/20 Status: Ordered cefdinir 25 mg/ml oral suspension (2 sources) Cephalosporin Antibacterial Start: 11-02-2021 End: 11-07-2021 take 1 dose by mouth every twelve hours cefdinir 125 mg/5 mL oral liquid Dose : 300 mg = 12 mL, Oral, q12h, Please cancel the previous prescription for pills as this patient is unable to swallow pills., X 5 day(s), # 120 mL, 0 Refill(s), 11/07/21 12:48:00 EDT, Pharmacy: [facility]/pharmacy #[id number], 162.6, cm, 11/02/21 0:29:00 EDT,... Start Date: 11/02/21 Stop Date: 11/07/21 Status: Ordered Completed/Discontinued Medications Medication Drug Class(es) Dates Sig (Normalized) Sig (Original) aspirin 81 mg delayed release oral tablet (3 sources) Platelet Aggregation Inhibitor, Nonsteroidal Anti-inflammatory Drug take 1 tablet by mouth once daily aspirin, enteric coated (ASPIRIN, ENTERIC COATED) 81 mg EC tablet Take 81 mg by mouth once daily. 0 Active Problems Active Problems Problem Classification Problem Date Documented Da te Episodic/Chronic Chronic obstructive pulmonary disease and bronchiectasis (4 sources) Pulmonary emphysema; Translations: [Other emphysema] Onset: 07-27-2006 10-17-2017 Chronic Diseases of white blood cells (1 source) Leukopenia; Translations: [Decreased white blood cell count, unspecified] Onset: 12-04-2020 Chronic Essential hypertension (3 sources) Benign essential hypertension; Translations: [Essential (primary) hypertension] Onset: 01-19-2007 01-19-2007 Chronic Malaise and fatigue (1 source) Asthenia; Translations: [Weakness] Onset: 12-04-2020 Episodic Osteoarthritis (4 sources) Arthritis 07-29-2014 Chronic Osteoporosis (4 sources) Primary osteoporosis; Translations: [Age-related osteoporosis without current pathological fracture] Onset: 07-27-2006 Chronic Other aftercare (2 sources) Post-discharge follow-up; Translations: [Encounter for follow-up examination after completed treatment for conditions other than malignant neoplasm] 10-14-2022 Episodic Other aftercare (1 source) Encounter for follow-up examination after completed treatment for conditions other than malignant neoplasm; Translations: [Hospital discharge follow-up] Onset: 10-14-2022 Episodic Other diseases of kidney and ureters (1 source) Disorder of kidney and/or ureter; Translations: [Disorder of kidney and ureter, unspecified] Onset: 11-28-2022 Episodic Other diseases of kidney and ureters (1 source) Renal impairment; Translations: [Disorder of kidney and ureter, unspecified] 12-04-2022 Episodic Other diseases of kidney and ureters (1 source) Disorder of kidney and ureter, unspecified; Translations: [Renal insufficiency] Onset: 12-04-2022 Episodic Peripheral and visceral atherosclerosis (4 sources) Peripheral vascular disease; Translations: [Peripheral vascular disease, unspecified] Onset: 10-17-2017 10-17-2017 Chronic Pneumonia (except that caused by tuberculosis or sexually transmitted disease) (4 sources) Pneumonia; Translations: [Pneumonia, unspecified organism] Onset: 11-02-2021 Episodic Residual codes; unclassified (2 sources) Altered mental status; Translations: [Altered mental status, unspecified] Onset: 12-04-2020 Episodic Residual codes; unclassified (2 sources) Tobacco user; Translations: [Tobacco use] Onset: 12-04-2020 Episodic Respiratory failure; insufficiency; arrest (adult) (1 source) Acute respiratory failure; Translations: [Acute respiratory failure with hypoxia] Onset: 12-05-2020 Episodic Rheumatoid arthritis and related disease (14 sources) Rheumatoid arthritis; Translations: [Rheumatoid arthritis, unspecified] Onset: 03-05-2015 Chronic Substance-related disorders (7 sources) Tobacco user; Translations: [Nicotine dependence, unspecified, uncomplicated] Onset: 07-27-2006 07-27-2006 Chronic Unclassified (1 source) Hydronephrosis with ureteropelvic junction obstruction; Translations: [Hydronephrosis with ureteropelvic junction obstruction] Onset: 10-13-2017 Unclassified (1 source) Unknown / UNK(Unknown) Onset: 10-13-2017 Urinary tract infections (6 sources) Urinary tract infectious disease; Translations: [Urinary tract infection, site not specified] Onset: 11-02-2021 Episodic Viral infection (1 source) Disease caused by 2019-nCoV; Translations: [COVID-19] 12-04-2022 Episodic Past or Other Problems Problem Classification Problem Date Documented Date Episodic/Chronic Diabetes mellitus without complication (3 sources) Increased glucose level; Translations: [Other abnormal glucose] Onset: 01-22-2010 01-22-2010 Episodic Unclassified (1 source) Hydronephrosis with ureteropelvic junction obstruction Onset: 10-13-2017 Viral infection (2 sources) Disease caused by 2019-nCoV; Translations: [COVID-19] Onset: 12-04-2020 Results Test Name Value Interpretation Reference Range Facil ity Vital Signs Date Time Vital Sign Value Performing Clinician Facility 12-04-2022 14:27-0400 Body weight 57.02 kg Hector Ortez MD Work Phone: [facility] 12-04-2022 14:27-0400 Diastolic blood pressure 70 mm[Hg] Hector Ortez MD Work Phone: [facility] 12-04-2022 14:27-0400 Heart rate 80 /min Hector Ortez MD Work Phone: [facility] 12-04-2022 14:27-0400 Respiratory rate 16 /min Hector Ortez MD Work Phone: [facility] 12-04-2022 14:27-0400 Systolic blood pressure 124 mm[Hg] Hector Ortez MD Work Phone: [facility] 11-28-2022 16:54-0400 Body temperature 98.6 [degF] JONATHAN BLACK APRN-YOLANDA [facility] 11-28-2022 16:54-0400 Diastolic Blood Pressure Non-Invasive 81 1 JONATHAN BLACK APRN-[employer] [facility] 11-28-2022 16:54-0400 Heart rate 71 /min JONATHAN BLACK APRN-[employer] [facility] 11-28-2022 16:54-0400 Reason For Taking VItal Signs JONATHAN BLACK APRN-[employer] [facility] 11-28-2022 16:54-0400 Respiratory rate 18 /min OJNATHAN BLACK APRN-[employer] [facility] 11-28-2022 16:54-0400 Systolic Blood Pressure Non-Invasive 114 1 JONATHAN BLACK NEUROLOGY TECH-[employer] [facility] 11-28-2022 13:17-0400 Body temperature 97.34 [degF] JONATHAN BLACK NEUROLOGY TECH-[employer] [facility] 11-28-2022 13:17-0400 Diastolic Blood Pressure Non-Invasive 84 1 JONATHAN BARAJASN NEUROLOGY TECH-[employer] [facility] 11-28-2022 13:17-0400 Heart rate 72 /min JONATHAN BARAJASN NEUROLOGY TECH-[employer] [facility] 11-28-2022 13:17-0400 Respiratory rate 18 /min JONATHAN BARAJASN NEUROLOGY TECH-[employer] [facility] 11-28-2022 13:17-0400 Systolic Blood Pressure Non-Invasive 142 1 JONATHAN BARAJASN NEUROLOGY TECH-[employer] [facility] 11-28-2022 06:00-0400 Body temperature 98.06 [degF] JONATHAN BARAJASN NEUROLOGY TECH-[employer] [facility] 11-28-2022 06:00-0400 Diastolic Blood Pressure Non-Invasive 78 1 JONATHAN BARAJASN NEUROLOGY TECH-[employer] [facility] 11-28-2022 06:00-0400 Heart rate 80 /min JONATHAN BARAJASN NEUROLOGY TECH-[employer] [facility] 11-28-2022 06:00-0400 Systolic Blood Pressure Non-Invasive 148 1 JONATHAN BARAJASN NEUROLOGY TECH-[employer] [facility] 11-28-2022 04:30-0400 Heart rate 72 /min JONATHAN BARAJASN NEUROLOGY TECH-[employer] [facility] 11-27-2022 23:35-0400 Heart rate 69 /min JONATHAN BLACK NEUROLOGY TECH-[employer] [facility] 11-27-2022 21:15-0400 Heart rate 92 /min JONATHAN BLACK NEUROLOGY TECH-[employer] [facility] 11-27-2022 21:11-0400 Body height 155 cm JONATHAN BLACK NEUROLOGY TECH-[employer] [facility] 11-27-2022 21:11-0400 Body weight 56.7 kg JONATHAN BLACK NEUROLOGY TECH-[employer] [facility] 11-27-2022 21:11-0400 Body weight 23.6 kg/m2 JONATHAN BLACK NEUROLOGY TECH-[employer] [facility] 11-27-2022 19:15-0400 Blood Pressure Cuff Size JONATHAN BLACK NEUROLOGY TECH-[employer] [facility] 11-27-2022 19:15-0400 Blood Pressure Location JONATHAN BLACK NEUROLOGY TECH-[employer] [facility] 11-27-2022 19:15-0400 Blood Pressure Method JONATHAN BLACK NEUROLOGY TECH-[employer] [facility] 11-27-2022 17:05-0400 Blood Pressure Cuff Size JONATHAN BLACK NEUROLOGY TECH-[employer] [facility] 11-27-2022 17:05-0400 Blood Pressure Location JONATHAN BLACK NEUROLOGY TECH-[employer] [facility] 11-27-2022 17:05-0400 Blood Pressure Method JONATHAN BLACK NEUROLOGY TECH-[employer] [facility] 11-27-2022 17:05-0400 Body weight 61.5 kg JONATHAN MALDONADOHARINI NEUROLOGY TECH-[employer] [facility] 11-27-2022 17:05-0400 Heart rate 92 /min JONATHAN MALDONADOHARINI NEUROLOGY TECH-[employer] [facility] 10-14-2022 10:14-0400 Body weight 58.06 kg Hernesto Spearspatrick NEUROLOGY TECH.[employer] Work Phone: [facility] 10-14-2022 10:14-0400 Diastolic blood pressure 80 mm[Hg] Hernesto Spearshof NEUROLOGY TECH.[employer] Work Phone: [facility] 10-14-2022 10:14-0400 Heart rate 86 /min Hernestomarcella Grahamf NEUROLOGY TECH.[employer] Work Phone: [facility] 10-14-2022 10:14-0400 Respiratory rate 18 /min Hernestomarclela Galvin NEUROLOGY TECH.[employer] Work Phone: [facility] 10-14-2022 10:14-0400 SaO2% (BldA) [Mass fraction] 98 % Hernesto Reganhojeanette NEUROLOGY TECH.[employer] Work Phone: [facility] 10-14-2022 10:14-0400 Systolic blood pressure 130 mm[Hg] Hernestomarcella Grahamf NEUROLOGY TECH.[employer] Work Phone: [facility] 09-07-2022 18:25-0400 Body temperature 100.76 [degF] DR KAYLA AABD DO [facility] 09-07-2022 18:25-0400 Diastolic Blood Pressure Non-Invasive [address] [facility] 09-07-2022 18:25-0400 Heart rate 92 /min DR KAYLA ABAD DO [facility] 09-07-2022 18:25-0400 Respiratory rate 16 /min DR KAYLA ABAD DO [facility] 09-07-2022 18:25-0400 Systolic Blood Pressure Non-Invasive [address] [facility] 09-07-2022 16:50-0400 Diastolic Blood Pressure Non-Invasive [address] [facility] 09-07-2022 16:50-0400 Heart rate 90 /min DR KAYLA ABAD DO [facility] 09-07-2022 16:50-0400 Reason For Taking VItal Signs DR KAYLA ABAD DO [facility] 09-07-2022 16:50-0400 Respiratory rate 20 /min DR KAYLA ABAD DO [facility] 09-07-2022 16:50-0400 Systolic Blood Pressure Non-Invasive [address]ZA K[address]KAYLEY DO [facility] 09-07-2022 16:38-0400 Body temperature 101.84 [degF] DR GARZA KRUNALKAYLEY DO [facility] 09-07-2022 16:38-0400 Diastolic Blood Pressure Non-Invasive [address] [facility] 09-07-2022 16:38-0400 Heart rate 86 /min DR KAYLA ABAD DO [facility] 09-07-2022 16:38-0400 Respiratory rate 24 /min DR KAYLA ABAD DO [facility] 09-07-2022 16:38-0400 Systolic Blood Pressure Non-Invasive [address] [facility] 09-07-2022 15:23-0400 Body temperature 101.66 [degF] DR KAYLA ABAD DO [facility] 11-02-2021 12:40-0400 Body temperature 97.7 [degF] MASON PHILLIPSITH NEUROLOGY TECH-[employer] [facility] 11-02-2021 12:40-0400 Diastolic blood pressure 66 mm[Hg] MASON PHILLIPSITH NEUROLOGY TECH-[employer] [facility] 11-02-2021 12:40-0400 Heart rate 76 /min MASON PHILLIPSITH NEUROLOGY TECH-[employer] [facility] 11-02-2021 12:40-0400 Respiratory rate 16 /min MASON PHILLIPSITH NEUROLOGY TECH-[employer] [facility] 11-02-2021 12:40-0400 Systolic blood pressure 132 mm[Hg] MASON PHILLIPSITH NEUROLOGY TECH-[employer] [facility] 11-02-2021 09:33-0400 Body temperature 97.34 [degF] MASON PHILLIPSITH NEUROLOGY TECH-[employer] [facility] 11-02-2021 09:33-0400 Diastolic blood pressure 56 mm[Hg] MASON PHILLIPSITH NEUROLOGY TECH-[employer] [facility] 11-02-2021 09:33-0400 Heart rate 72 /min MASON ALANITH NEUROLOGY TECH-[employer] [facility] 11-02-2021 09:33-0400 Respiratory rate 16 /min MASON PHILLIPSITH NEUROLOGY TECH-[employer] [facility] 11-02-2021 09:33-0400 Systolic blood pressure 121 mm[Hg] MASON FOITH NEUROLOGY TECH-[employer] [facility] 11-02-2021 04:55-0400 Body temperature 97.88 [degF] MASON HOLBROOK NEUROLOGY TECH-[employer] [facility] 11-02-2021 04:55-0400 Diastolic blood pressure 66 mm[Hg] MASON HOLBROOK NEUROLOGY TECH-[employer] [facility] 11-02-2021 04:55-0400 Heart rate 81 /min MASON HOLBROOK NEUROLOGY TECH-[employer] [facility] 11-02-2021 04:55-0400 Mean blood pressure 80 mm[Hg] MASON HOLBROOK NEUROLOGY TECH-[employer] [facility] 11-02-2021 04:55-0400 Respiratory rate 16 /min MASON HOLBROOK NEUROLOGY TECH-[employer] [facility] 11-02-2021 04:55-0400 Systolic blood pressure 109 mm[Hg] MASON HOLBROOK NEUROLOGY TECH-[employer] [facility] 11-02-2021 00:29-0400 Body height 162.6 cm MASON HOLBROOK NEUROLOGY TECH-[facility] [employer] [facility] 11-02-2021 00:29-0400 Body weight 56.8 kg MASON HOLBROOK NEUROLOGY TECH-[facility] [facility] 11-02-2021 00:29-0400 Body weight 21.48 kg/m2 MASON HOLBROOK NEUROLOGY TECH-[employer] [facility] 11-02-2021 00:27-0400 Body weight 56.8 kg MASON HOLBROOK NEUROLOGY TECH-[employer] [facility] 11-01-2021 23:45-0400 Heart rate 80 /min MASON SHERON NEUROLOGY TECH-[employer] [facility] 11-01-2021 23:03-0400 Heart rate 76 /min MASON SHERON NEUROLOGY TECH-[facility] [facility] 11-01-2021 18:23-0400 Body height 162.6 cm MASON SHERON NEUROLOGY TECH-[facility] 11-01-2021 18:23-0400 Body weight 63.6 kg MASON SHERON NEUROLOGY TECH-[employer] [facility] 12-06-2020 08:37-0400 Body temperature 97.7 [degF] MASON HOLBROOK NEUROLOGY TECH-[employer] [facility] 12-06-2020 08:37-0400 Diastolic blood pressure 86 mm[Hg] MASON HOLBROOK NEUROLOGY TECH-[employer] [facility] 12-06-2020 08:37-0400 Heart rate 63 /min MASON SHERON NEUROLOGY TECH-[employer] [facility] 12-06-2020 08:37-0400 Reason For Taking VItal Signs MASON HOLBROOK NEUROLOGY TECH-[employer] [facility] 12-06-2020 08:37-0400 Respiratory rate 20 /min MASON HOLBROOK NEUROLOGY TECH-[employer] [facility] 12-06-2020 08:37-0400 Systolic blood pressure 150 mm[Hg] MASON HOLBROOK NEUROLOGY TECH-[employer] [facility] 12-06-2020 03:28-0400 Body temperature 96.44 [degF] MASON FOITH NEUROLOGY TECH-[employer] [facility] 12-06-2020 03:28-0400 Diastolic blood pressure 84 mm[Hg] MASON FOITH NEUROLOGY TECH-[facility] [facility] 12-06-2020 03:28-0400 Heart rate 65 /min MASON FOITH NEUROLOGY TECH-[employer] [facility] 12-06-2020 03:28-0400 Respiratory rate 20 /min MASON FOITH NEUROLOGY TECH-[facility] 12-06-2020 03:28-0400 Systolic blood pressure 156 mm[Hg] MASON FOITH NEUROLOGY TECH-[facility] [employer] [facility] 12-06-2020 00:09-0400 Body temperature 98.6 [degF] MASON FOITH NEUROLOGY TECH-[facility] [employer] [facility] 12-06-2020 00:09-0400 Diastolic blood pressure 70 mm[Hg] MASON FOITH NEUROLOGY TECH-[facility] [employer] [facility] 12-06-2020 00:09-0400 Heart rate 63 /min MASON FOITH NEUROLOGY TECH-[facility] [employer] [facility] 12-06-2020 00:09-0400 Respiratory rate 20 /min MASON SHERON NEUROLOGY TECH-[employer] [facility] 12-06-2020 00:09-0400 Systolic blood pressure 150 mm[Hg] MASON HOLBROOK NEUROLOGY TECH-[employer] [facility] 12-05-2020 19:49-0400 Heart rate 76 /min MASON SHERON NEUROLOGY TECH-[employer] [facility] 12-05-2020 19:03-0400 Heart rate 89 /min MASON SHERON NEUROLOGY TECH-[employer] [facility] 12-05-2020 15:41-0400 Heart rate 90 /min MASON ALANITH NEUROLOGY TECH-POL[facility] AND [facility] 12-05-2020 15:41-0400 Mean blood pressure 81 mm[Hg] MASON SHERON NEUROLOGY TECH-[employer] AND [facility] 12-05-2020 15:41-0400 Reason For Taking VItal Signs MASON HOLBROOK NEUROLOGY TECH-[employer] [facility] 12-05-2020 08:20-0400 Heart rate 74 /min MASON ALANITH NEUROLOGY TECH-[facility] [facility] 12-05-2020 08:20-0400 Mean blood pressure 105 mm[Hg] MASON ALANITH NEUROLOGY TECH-[facility] [facility] 12-05-2020 08:20-0400 Reason For Taking VItal Signs MASON HOLBROOK APRN-POL[facility] [employer] [facility] 12-04-2020 18:49-0400 Mean blood pressure 106 mm[Hg] MASON SHERON LLANOS-POLISHER AND [facility]ANDER [facility] 12-03-2020 23:53-0400 Body height 157.5 cm MASON HOLBROOK APRN-POL[facility] [employer] [facility] 12-03-2020 23:53-0400 Body weight 51.8 kg MASON SHERON LLANOS-POL[facility]ER AND [facility] 12-03-2020 23:53-0400 Body weight 20.88 kg/m2 MASON HOLBROOK APRN-POL[facility] [employer] [facility] 12-03-2020 20:30-0400 Heart rate 86 /min MASON SHERON LLANOS-POLISHER AND [facility]ER [facility] Encounters Encounter Date Encounter Type Care Provider Facility Start: 12-04-2022 End: 12-05-2022 ambulatory HECTOR ORTEZ Facility:[facility] Start: 12-04-2022 End: 12-04-2022 Patient encounter procedure Hector Ortez MD Work Phone: [facility] [place] Procedures Date Procedure Procedure Detail Performing Clinician Cholecystectomy MASON HOLBROOK APRN-[employer]ER Plan of Treatment Date Care Activity Detail Author Start: 09-02-2026 Urine microalbumin profile [facility] Start: 12-05-2023 Annual PCP Team Sighter jimmy Disease Visit Annual PCP Team Chronic Disease Visit [facility] Start: 12-05-2023 BP Controlled (<130/80) BP Controlle d (<130/80) [facility] Start: 12-05-2023 Covid-19 Vaccine (#1) Covid-19 Vacci ne (#1) [facility] Immunizations Immunization Date Immunization Notes Care Provider Cooper maynard 10-17-2017 influenza virus vacc ine, unspecified formulation Hector Ortez MD Work Phone: [facility] 09-02-2016 tetanus and diphther ia toxoids, adsorbed, preservative free, for adult use (5 Lf of tetanus toxoid and 2 Lf of diphtheria toxoid) MASON HOLBROOK NEUROLOGY TECH-[employer] [facility] 07-05-2015 pneumococcal conjuga te vaccine, 13 valent MASON HOLBROOK NEUROLOGY TECH-[employer] [facility] 01-03-2014 pneumococcal polysaccharide vaccine, 23 valent [employer] NEUROLOGY TECH-POLISHER AND SANDER [facility] 11-24-2012 influenza virus vacc ine, unspecified formulation [facility] 11-12-2010 influenza virus vacc ine, unspecified formulation [facility] 11-20-2009 influenza virus vacc ine, unspecified formulation [facility] 11-17-2008 influenza virus vacc ine, unspecified formulation [facility] 12-21-2007 influenza virus vacc ine, unspecified formulation [facility] Work Phone: 01-19-2007 influenza virus vacc ine, unspecified formulation [facility] Work Phone: 07-27-2006 tetanus toxoid, redu beba diphtheria toxoid, and acellular pertussis vaccine, adsorbed [facility] Work Phone: 11-25-2000 pneumococcal polysaccharide vaccine, 23 valent [facility] Payers Date Payer Category Payer Unknown [id number] 2006 Medicare [id number] 1940 Unknown [id number] 1940 Unknown [id number] Medicare [id number] Social History Date Type Detail Facility Start: 12-03-2020 Heavy tobacco smoker (finding) [facility] Sex Assigned At [facility] Start: 10-29-2018 End: 10-14-2022 Tobacco smoking status NHIS Smokes tobacco daily [facility] History of tobacco use Cigarette Smoker [facility] Start: 10-29-2018 End: 10-14-2022 Cigarettes smoked current (pack per day) - Reported 1.5 [facility] Start: 10-29-2018 End: 10-14-2022 Tobacco use and exposure Smokeless tobacco non-user [facility] Start: 12-27-2020 End: 12-04-2022 Alcohol intake Current non-drinker of alcohol (finding) [facility] Start: 12-27-2020 End: 10-14-2022 Tobacco use panel [facility] Adult Depression Screening Assessment 0 [facility] Start: 10-29-2018 End: 10-14-2022 Tobacco Comment No ready to quit, likes to smoke [facility] Start: 1940 Sex Assigned At Not on file C [facility] Functional Status Date Assessment Result Facility 11-28-2022 Functional Status Door open, Room check performed [facility] 11-28-2022 Functional Status [facility] 11-28-2022 Functional Status [facility] 11-28-2022 Functional Status Mobile home [facility] 11-28-2022 Functional Status 7pm-7am [facility] 11-27-2022 Functional Status Sensory Deficits None A [facility] 09-07-2022 Functional Status Minimum assistance [facility] 09-07-2022 Functional Status Standard Safet y ID band on, Call device within reach, Bed in low position, Wheels locked, Bedside Cart Locked, Safety level maintained [facility] 09-07-2022 Functional Status [facility] 11-02-2021 Functional Status Room check performed [facility] 11-02-2021 Functional Status pt often closi ng eyes and required extended time to answer questions, follow commands. [facility] 11-02-2021 Functional Status [facility] 11-02-2021 Functional Status [facility] 11-02-2021 Functional Status Sensory Deficits None A [facility] Mental Status Date Assessment Result Facility 11-28-2022 Mental Status Oriented x 4 [facility] 11-27-2022 Mental Status [facility] 11-27-2022 Mental Status [facility] 09-07-2022 Mental Status Orientation Oriented x 4 [facility] 09-07-2022 Mental Status [facility] 11-02-2021 Mental Status Orientation Asse ssment Oriented x 4 [facility] 11-02-2021 Mental Status Oriented x 4 [facility] 11-01-2021 Mental Status [facility] 11-01-2021 Mental Status [facility] Clinical Notes 01-19-2007 to 12-04-2022 Hector Ortez MD - 12/04/2022 2:20 PM EDT Note Date & Type Note Facility 12-04-2022 Note HNO ID: [id number] Author: Hector Ortez MD Service: ? Author Type: Physician Type: Progress Notes Filed: 12/04/2022 2:46 PM Note Text: Chief Complaint Patient presents with: Hospital F/U: [facility]-fever and mental status change HPI Joann Prieto is a 82 year old female who presents here today for Hospital Discharge Follow up.. Not a TCM. Unsure if she has an advanced directive. Here with her daughter who is her POA, Judah Rene. Depression screening tool completed and reviewed. Based on score and interview, patient is not at risk for depression. Screening tool discussed with patient, and I recommended no further intervention at this time Smokes, enjoys smoking, will not quit. Pt was brought into the [facility] ER on 11/27/22 by EMS for altered mental status and fever. She didn't know the year, who the president was. She tested positive for Covid-19. Pt altered mental status improved secondary to Covid-19. Discharged home 11/28/22. Pt stated she didn't believe she had covid, stated she just had runny nose, sore throat, fever, cough, congestion, felt like she had the flu. She stated that she was given iv fluid and within an hour she was not confused and could recall president and the year. She was not treat with any medication at discharge. The creatinine was 1.23 on 11/27/22, was rechecked with baseline of 0.9. Recommended that she have her creatinine level rechecked. She still has some right side abdominal pain off and on, rated 2/10, sore or tender. Is not severe pain. It only lasts a short time then resolves. Denies any n/v/d or any urinary sx. 82-year-old female with past medical history of tobacco use and rheumatoid arthritis. Presented to [facility] emergency department on 11/27/22 with confusion and fever. EMS was called by her . Was intermittently confused on presentation which is not normal for her. Patient was not sure why the ambulance was called. On presentation; noted to be positive for Covid-19. Urinalysis was not concerning for infection. CBC, chemistry panel unremarkable. Was apparently hypoxic requiring 2 L nasal cannula, has since been weaned off. On exam, patient is sitting up in bed. States she feels well. No longer confused. Tolerating room air. Tolerating oral intake. No chest pains or shortness of breath. Plan: Positive for Covid-19, possible cause of altered mentation. Tolerating room air. Dexamethasone has been stopped. Given history of rheumatoid arthritis, initiated on remdesivir. Altered mental status as mentioned above, this has resolved. Was likely secondary to Covid-19. Renal insufficiency, creatinine 1.23 today, baseline around 0.9. has had poor oral intake over the past week. 1 L normal saline ordered with repeat labs this afternoon. Rheumatoid arthritis, continue home medications on discharge. Past medical history, appointments, medications, allergies reviewed. Previous Medical History PAST MEDICAL HISTORY Diagnosis Date Diverticulosis of colon (without mention of hemorrhage) Essential hypertension, benign Osteoporosis, unspecified Pneumonia, organism unspecified(486) 1994 Rheumatoid arthritis (HCC) Urinary calculus, unspecified 11/09 passed spontaneous Previous Surgical History PAST SURGICAL HISTORY Procedure Laterality Date CHOLECYSTECTOMY 1997 Cholecystectomy COLONOSCOPY FLX DX W/COLLJ SPEC WHEN PFRMD 10/20/2007 Colonoscopy Family History FAMILY HISTORY Problem Relation Age of Onset Emphysema Mother smoker Cancer Father liver cancer, bone cancer Diabetes Father Diabetes Paternal Grandmother Diabetes Paternal Aunt Diabetes Maternal Aunt Patient Allergies ALLERGIES No Known Allergies Current Medications Current Outpatient Medications on File Prior to Visit Medication Sig Etanercept (ENBREL) 50 mg/mL (1 mL) injection Inject 1 mL subcutaneously one time a week. entire contents of 1 syringe (50mg/1mL). aspirin, enteric coated (ASPIRIN, ENTERIC COATED) 81 mg EC tablet Take 81 mg by mouth once daily. methotrexate 2.5 mg tablet Take 8 tablets by mouth once each week. folic acid 1 mg tablet Take 1 tablet by mouth once daily. CALCIUM CARBONATE (CALCIUM 600 ORAL) Take by mouth once daily. cholecalciferol (VITAMIN D) 1,000 unit tab tablet Take 1,000 Units by mouth once daily. No current facility-administered medications on file prior to visit. Social History Social History Tobacco Use Smoking status: Every Day Packs/day: 1.50 Years: 40.00 Additional pack years: 0.00 Total pack years: 60.00 Types: Cigarettes Smokeless tobacco: Never Tobacco comments: No ready to quit, likes to smoke Substance Use Topics Alcohol use: No Drug use: No EXAM: BP 124/70 Pulse 80 Resp 16 Wt 57 kg (125 lb 11.2 oz) BMI 24.15 kg/m? General Appearance: Well appearing, alert, in no acute distress, well-hydrated, well nourished.. Makenzie (more content not included)... [facility] 12-04-2022 History of Present illness Narrative Chief Complaint Patient presents with: Hospital F/U: [facility]-fever and mental status change HPI Joann Prieto is a 82 year old female who presents here today for Hospital Discharge Follow up.. Not a TCM. Unsure if she has an advanced directive. Here with her daughter who is her POA, Judah Rene. Depression screening tool completed and reviewed. Based on score and interview, patient is not at risk for depression. Screening tool discussed with patient, and I recommended no further intervention at this time Smokes, enjoys smoking, will not quit. Pt was brought into the [facility] ER on 11/27/22 by EMS for altered mental status and fever. She didn't know the year, who the president was. She tested positive for Covid-19. Pt altered mental status improved secondary to Covid-19. Discharged home 11/28/22. Pt stated she didn't believe she had covid, stated she just had runny nose, sore throat, fever, cough, congestion, felt like she had the flu. She stated that she was given iv fluid and within an hour she was not confused and could recall president and the year. She was not treat with any medication at discharge. The creatinine was 1.23 on 11/27/22, was rechecked with baseline of 0.9. Recommended that she have her creatinine level rechecked. She still has some right side abdominal pain off and on, rated 2/10, sore or tender. Is not severe pain. It only lasts a short time then resolves. Denies any n/v/d or any urinary sx. 82-year-old female with past medical history of tobacco use and rheumatoid arthritis. Presented to [facility] emergency department on 11/27/22 with confusion and fever. EMS was called by her . Was intermittently confused on presentation which is not normal for her. Patient was not sure why the ambulance was called. On presentation; noted to be positive for Covid-19. Urinalysis was not concerning for infection. CBC, chemistry panel unremarkable. Was apparently hypoxic requiring 2 L nasal cannula, has since been weaned off. On exam, patient is sitting up in bed. States she feels well. No longer confused. Tolerating room air. Tolerating oral intake. No chest pains or shortness of breath. Plan: Positive for Covid-19, possible cause of altered mentation. Tolerating room air. Dexamethasone has been stopped. Given history of rheumatoid arthritis, initiated on remdesivir. Altered mental status as mentioned above, this has resolved. Was likely secondary to Covid-19. Renal insufficiency, creatinine 1.23 today, baseline around 0.9. has had poor oral intake over the past week. 1 L normal saline ordered with repeat labs this afternoon. Rheumatoid arthritis, continue home medications on discharge. Past medical history, appointments, medications, allergies reviewed. Previous Medical History PAST MEDICAL HISTORY Diagnosis Date Diverticulosis of colon (without mention of hemorrhage) Essential hypertension, benign Osteoporosis, unspecified Pneumonia, organism unspecified(486) 1994 Rheumatoid arthritis (HCC) Urinary calculus, unspecified 11/09 passed spontaneous Previous Surgical History PAST SURGICAL HISTORY Procedure Laterality Date CHOLECYSTECTOMY 1997 Cholecystectomy COLONOSCOPY FLX DX W/COLLJ SPEC WHEN PFRMD 10/20/2007 Colonoscopy Family History FAMILY HISTORY Problem Relation Age of Onset Emphysema Mother smoker Cancer Father liver cancer, bone cancer Diabetes Father Diabetes Paternal Grandmother Diabetes Paternal Aunt Diabetes Maternal Aunt Patient Allergies ALLERGIES No Known Allergies Current Medications Current Outpatient Medications on File Prior to Visit Medication Sig Etanercept (ENBREL) 50 mg/mL (1 mL) injection Inject 1 mL subcutaneously one time a week. entire contents of 1 syringe (50mg/1mL). aspirin, enteric coated (ASPIRIN, ENTERIC COATED) 81 mg EC tablet Take 81 mg by mouth once daily. methotrexate 2.5 mg tablet Take 8 tablets by mouth once each week. folic acid 1 mg tablet Take 1 tablet by mouth once daily. CALCIUM CARBONATE (CALCIUM 600 ORAL) Take by mouth once daily. cholecalciferol (VITAMIN D) 1,000 unit tab tablet Take 1,000 Units by mouth once daily. No current facility-administered medications on file prior to visit. Social History Social History Tobacco Use Smoking status: Every Day Packs/day: 1.50 Years: 40.00 Additional pack years: 0.00 Total pack years: 60.00 Types: Cigarettes Smokeless tobacco: Never Tobacco comments: No ready to quit, likes to smoke Substance Use Topics Alcohol use: No Drug use: No EXAM: BP 124/70 Pulse 80 Resp 16 Wt 57 kg (125 lb 11.2 oz) BMI 24.15 kg/m General Appearance: Well appearing, alert, in no acute distress, well-hydrated, well nourished.. Lungs: Lungs clear to auscultation. No wheezing, rhonchi, rales.. Heart: RRR without murmur, gallop, or rubs. No ectopy. Abdomen: soft, mild right lower tenderness at inguinal line; no masses. Health Maintenance List Covid-19 Vaccine(1) Never done Spirometry Never done BP Controlled (<130/80) Never done Shingrix Vaccine(1 of 2) Never done RSV Vaccine(1 - 1-dose 60+ series) Never done Advance Directive Discussion Never done Depression Assessment Never done Diabetes Screening due on 02/21/2022 Influenza Vaccine(1) due on 10/10/2022 Annual PCP Team Chronic Disease Visit due on 10/15/2023 DTaP,Tdap,Td Vaccine(3 - Td or Tdap) due on 09/02/2026 Bone Density Screening Completed Pneumococcal Vaccine: 65+ Completed Colorectal Cancer Screening Discontinued Data reviewed [facility] from [facility] from 11/27/22 to 11/28/22 ASSESSMENT/PLAN: 1. Hospital discharge follow-up - ICD9: V67.59, ICD10: Z09 (primary diagnosis) Check BMP today 2. Renal insufficiency - ICD9: 593.9, ICD10: N28.9 Check BMP today 3. COVID-19 - ICD9: 079.89, ICD10: U07.1 Resolved, improved 4. Tobacco use disorder - ICD9: 305.1, ICD10: F17.200 - Cessation encouraged. - Physiologic and physical aspects of tobacco addiction as well as strategies for quitting were discussed. - Counseling was given focusing on the harmful effects of this addiction especially given the patient's medical condition(s) which will be worsened because of the chemicals in tobacco. - Counseling was given 3-4 minutes. Follow up as needed; monitor abd tenderness, call if changing . I agree with the Chief Complaint, ROS, and Past Histories independently gathered by the clinical support teacher and the remaining scribed note accurately describes my personal service to the patient. Medical Decision Making: Problems: Low: Acute, uncomplicated illness or injury and Stable chronic illness Moderate: New problem with uncertain prognosis Data: Unique test(s) ordered: 1 Risk: Moderate: Drug management Medical Decision Making Level: 4 - Moderate Hector Ortez MD The documentation for this note was completed by Vonnie Andres Ma acting as scribe for Hector Ortez MD. December 04, 2022 2:39 PM. Vonnie Andres Ma documented in this encounter [facility] 12-02-2022 Note . MICRO - Microbiology PROCEDURE: Blood Culture (bacterial) [*1] SOURCE: Blood BODY SITE: COLLECTED DATE/TIME: 11/27/2022 17:26 EDT RECEIVED DATE/TIME: 11/27/2022 19:21 EDT START DATE/TIME: 11/27/2022 19:21 EDT FREE TEXT SOURCE: FINAL REPORTS Final Report [] Verified Date/Time/Personnel: 12/02/2022 19:59 EDT Blood Culture: No Growth at 5 days. PRELIMINARY REPORTS Preliminary Report [] Verified Date/Time/Personnel: 11/27/2022 19:59 EDT Culture has been received in lab and is no growth to date. Routine cultures are held for 5 days. Performing Locations *1: This test was performed at: [address], [address] [place] [address] ([place]) 12-02-2022 Note . MICRO - Microbiology PROCEDURE: Blood Culture (bacterial) [*1] SOURCE: Blood BODY SITE: COLLECTED DATE/TIME: 11/27/2022 17:26 EDT RECEIVED DATE/TIME: 11/27/2022 19:21 EDT START DATE/TIME: 11/27/2022 19:21 EDT FREE TEXT SOURCE: FINAL REPORTS Final Report [] Verified Date/Time/Personnel: 12/02/2022 19:59 EDT Blood Culture: No Growth at 5 days. PRELIMINARY REPORTS Preliminary Report [] Verified Date/Time/Personnel: 11/27/2022 19:59 EDT Culture has been received in lab and is no growth to date. Routine cultures are held for 5 days. Performing Locations *1: This test was performed at: [address], [id number] , [facility]) 11-29-2022 Note . MICRO - Microbiology PROCEDURE: Urine Culture [*1] SOURCE: Urine, Clean Catch BODY SITE: COLLECTED DATE/TIME: 11/27/2022 17:46 EDT RECEIVED DATE/TIME: 11/27/2022 19:35 EDT START DATE/TIME: 11/27/2022 19:36 EDT FREE TEXT SOURCE: FINAL REPORTS Final Report [] Verified Date/Time/Personnel: 11/29/2022 07:29 EDT No growth at 48 hours. PRELIMINARY REPORTS Preliminary Report [] Verified Date/Time/Personnel: 11/28/2022 09:10 EDT No growth to date Performing Locations *1: This test was performed at: [address], [address] , [facility] ([place]) 11-28-2022 Hospital Discharge instructions Patient Education 11/28/2022 16:16:22 Confusion Confusion Confusion is the inability to think with the usual speed or clarity. People who are confused often describe their thinking as cloudy or unclear. Confusion can also include feeling disoriented. This means you are unaware of where you are or who you are. You may also not know the date or time. When confused, you may have difficulty remembering, paying attention, or making decisions. Some people also act aggressively when they are confused. In some cases, confusion may come on quickly. In other cases, it may develop slowly over time. How quickly confusion comes on depends on the cause. Confusion may be caused by: Head injury (concussion). Seizures. Stroke. Fever. Brain tumor. Decrease in brain function due to a vascular or neurologic condition (dementia). Emotions, like rage or terror. Inability to know what is real and what is not (hallucinations). Infections, such as a urinary tract infection (UTI). Using too much alcohol, drugs, or medicines. Loss of fluid (dehydration) or an imbalance of salts in the body (electrolytes). Lack of sleep. Low blood sugar (diabetes). Low levels of oxygen. This comes from conditions such as chronic lung disorders. Side effects of medicines, or taking medicines that affect other medicines (drug interactions). Lack of certain nutrients, especially niacin, thiamine, vitamin C, or vitamin B. Sudden drop in body temperature (hypothermia). Change in routine, such as traveling or being hospitalized. Follow these instructions at home: Pay attention to your symptoms. Tell your health care provider about any changes or if you develop new symptoms. Follow these instructions to control or treat symptoms. Ask a family member or friend for help if needed. Medicines Take njwg-rfa-[id number] and prescription medicines only as told by your health care provider. Ask your health care provider about changing or stopping any medicines that may be causing your confusion. Avoid pain medicines or sleep medicines until you have fully recovered. Use a pillbox or an alarm to help you take the right medicines at the right time. Lifestyle Eat a balanced diet that includes fruits and vegetables. Get enough sleep. For most adults, this is 7 9 hours each night. Do not drink alcohol. Do not become isolated. Spend time with other people and make plans for your days. Do not drive until your health care provider says that it is safe to do so. Do not use any products that contain nicotine or tobacco, such as cigarettes and e-cigarettes. If you need help quitting, ask your health care provider. Stop other activities that may increase your chances of getting hurt. These may include some work duties, sports activities, swimming, or bike riding. Ask your health care provider what activities are safe for you. What caregivers can do Find out if the person is confused. Ask the person to state his or her name, age, and the date. If the person is unsure or answers incorrectly, he or she may be confused. Always introduce yourself, no matter how well the person knows you. Remind the person of his or her location. Do this often. Place a calendar and clock near the person who is confused. Talk about current events and plans for the day. Keep the environment calm, quiet, and peaceful. Help the person do the things that he or she is unable to do. These include: ?Taking medicines. ?Keeping follow-up visits with his or her health care provider. ?Helping with household duties, including meal preparation. ?Running errands. Get help if you need it. There are several support groups for caregivers. If the person you are helping needs more support, consider day care, extended care programs, or a residential facility. The person's health care provider may be able to help evaluate these options. General instructions Monitor yourself for any conditions you may have. These may include: ?Checking your blood glucose levels, if you have diabetes. ?Watching your weight, if you are overweight. ?Monitoring your blood pressure, if you have hypertension. ?Monitoring your body temperature, if you have a fever. Keep all follow-up visits as told by your health care provider. This is important. Contact a health care provider if: Your symptoms get worse. Get help right away if you: Feel that you are not able to care for yourself. Develop severe headaches, repeated vomiting, seizures, blackouts, or slurred speech. Have increasing confusion, weakness, numbness, restlessness, or personality changes. Develop a loss of balance, have marked dizziness, feel uncoordinated, or fall. Develop severe anxiety, or you have delusions or hallucinations. These symptoms may represent a serious problem that is an emergency. Do not wait to see if the symptoms will go away. Get medical help right away. Call your local emergency services (911 in the [place] Do not drive yourself to the hospital. Summary Confusion is the inability to think with the usual speed or clarity. People who are confused often describe their thinking as cloudy or unclear. Confusion can also include having difficulty remembering, paying attention, or making decisions. Confusion may come on quickly or develop slowly over time, depending on the cause. There are many different causes of confusion. Ask for help from family members or friends if you are unable to take care of yourself. This information is not intended to replace advice given to you by your health care provider. Make sure you discuss any questions you have with your health care provider. Document Released: 03/05/2005 Document Revised: 01/28/2018 Document Reviewed: 01/28/2018 [employer] Patient Education 2020 [employer] 11/28/2022 16:16:16 COVID-19 COVID-19 COVID-19 is a respiratory infection that is caused by a virus called severe acute respiratory syndrome coronavirus 2 (SARS-CoV-2). The disease is also known as coronavirus disease or novel coronavirus. In some people, the virus may not cause any symptoms. In others, it may cause a serious infection. The infection can get worse quickly and can lead to complications, such as: Pneumonia, or infection of the lungs. Acute respiratory distress syndrome or ARDS. This is fluid build-up in the lungs. Acute respiratory failure. This is a condition in which there is not enough oxygen passing from the lungs to the body. Sepsis or septic shock. This is a serious bodily reaction to an infection. Blood clotting problems. Secondary infections due to bacteria or fungus. The virus that causes COVID-19 is contagious. This means that it can spread from person to person through droplets from coughs and sneezes (respiratory secretions). What are the causes? This illness is caused by a virus. You may catch the virus by: Breathing in droplets from an infected person's cough or sneeze. Touching something, like a table or a doorknob, that was exposed to the virus (contaminated) and then touching your mouth, nose, or eyes. What increases the risk? Risk for infection You are more likely to be infected with this virus if you: Live in or travel to an area with a COVID-19 outbreak. Come in contact with a sick person who recently traveled to an area with a COVID-19 outbreak. Provide care for or live with a person who is infected with COVID-19. Risk for serious illness You are more likely to become seriously ill from the virus if you: Are 65 years of age or older. Have a long-term disease that lowers your body's ability to fight infection (immunocompromised). Live in a shelter or long-term care facility. Have a long-term (chronic) disease such as: ?Chronic lung disease, including chronic obstructive pulmonary disease or asthma ?Heart disease. ?Diabetes. ?Chronic kidney disease. ?Liver disease. Are obese. What are the signs or symptoms? Symptoms of this condition can range from mild to severe. Symptoms may appear any time from 2 to 14 days after being exposed to the virus. They include: A fever. A cough. Difficulty breathing. Chills. Muscle pains. A sore throat. Loss of taste or smell. Some people may also have stomach problems, such as nausea, vomiting, or diarrhea. Other people may not have any symptoms of COVID-19. How is this diagnosed? This condition may be diagnosed based on: Your signs and symptoms, especially if: ?You live in an area with a COVID-19 outbreak. ?You recently traveled to or from an area where the virus is common. ?You provide care for or live with a person who was diagnosed with COVID-19. A physical exam. Lab tests, which may include: ?A nasal swab to take a sample of fluid from your nose. ?A throat swab to take a sample of fluid from your throat. ?A sample of mucus from your lungs (sputum). ?Blood tests. Imaging tests, which may include, X-rays, CT scan, or ultrasound. How is this treated? At present, there is no medicine to treat COVID-19. Medicines that treat other diseases are being used on a trial basis to see if they are effective against COVID-19. Your health care provider will talk with you about ways to treat your symptoms. For most people, the infection is mild and can be managed at home with rest, fluids, and qsgz-ryf-angymcj medicines. Treatment for a serious infection usually takes places in a hospital intensive care unit (ICU). It may include one or more of the following treatments. These treatments are given until your symptoms improve. Receiving fluids and medicines through an IV. Supplemental oxygen. Extra oxygen is given through a tube in the nose, a face mask, or a mcgee. Positioning you to lie on your stomach (prone position). This makes it easier for oxygen to get into the lungs. Continuous positive airway pressure (CPAP) or bi-level positive airway pressure (BPAP) machine. This treatment uses mild air pressure to keep the airways open. A tube that is connected to a motor delivers oxygen to the body. Ventilator. This treatment moves air into and out of the lungs by using a tube that is placed in your windpipe. Tracheostomy. This is a procedure to create a hole in the neck so that a breathing tube can be inserted. Extracorporeal membrane oxygenation (ECMO). This procedure gives the lungs a chance to recover by taking over the functions of the heart and lungs. It supplies oxygen to the body and removes carbon dioxide. Follow these instructions at home: Lifestyle If you are sick, stay home except to get medical care. Your health care provider will tell you how long to stay home. Call your health care provider before you go for medical care. Rest at home as told by your health care provider. Do not use any products that contain nicotine or tobacco, such as cigarettes, e-cigarettes, and chewing tobacco. If you need help quitting, ask your health care provider. Return to your normal activities as told by your health care provider. Ask your health care provider what activities are safe for you. General instructions Take bzkm-hcu-yggecdp and prescription medicines only as told by your health care provider. Drink enough fluid to keep your urine pale yellow. Keep all follow-up visits as told by your health care provider. This is important. How is this prevented? There is no vaccine to help prevent COVID-19 infection. However, there are steps you can take to protect yourself and others from this virus. To protect yourself: Do not travel to areas where COVID-19 is a risk. The areas where COVID-19 is reported change often. To identify high-risk areas and travel restrictions, check the CDC travel website: wwwnc.cdc.gov/travel/notices If you live in, or must travel to, an area where COVID-19 is a risk, take precautions to avoid infection. ?Stay away from people who are sick. ?Wash your hands often with soap and water for 20 seconds. If soap and water are not available, use an alcohol-based hand engine cowling installer. ?Avoid touching your mouth, face, eyes, or nose. ?Avoid going out in public, follow guidance from your state and local health authorities. ?If you must go out in public, wear a cloth face covering or face mask. ?Disinfect objects and surfaces that are frequently touched every day. This may include: ?Counters and tables. ?Doorknobs and light switches. ?Sinks and faucets. ?Electronics, such as phones, remote controls, keyboards, computers, and tablets. To protect others: If you have symptoms of COVID-19, take steps to prevent the virus from spreading to others. If you think you have a COVID-19 infection, contact your health care provider right away. Tell your health care team that you think you may have a COVID-19 infection. Stay home. Leave your house only to seek medical care. Do not use public transport. Do not travel while you are sick. Wash your hands often with soap and water for 20 seconds. If soap and water are not available, use alcohol-based hand engine cowling installer. Stay away from other members of your household. Let healthy household members care for children and pets, if possible. If you have to care for children or pets, wash your hands often and wear a mask. If possible, stay in your own room, separate from others. Use a different bathroom. Make sure that all people in your household wash their hands well and often. Cough or sneeze into a tissue or your sleeve or elbow. Do not cough or sneeze into your hand or into the air. Wear a cloth face covering or face mask. Where to find more information Centers for Disease Control and Prevention: www.cdc.gov/coronavirus/2019-nco v/index.html World Health Organization: www.who.int/health-topics/hurst virus Contact a health care provider if: You live in or have traveled to an area where COVID-19 is a risk and you have symptoms of the infection. You have had contact with someone who has COVID-19 and you have symptoms of the infection. Get help right away if: You have trouble breathing. You have pain or pressure in your chest. You have confusion. You have bluish lips and fingernails. You have difficulty waking from sleep. You have symptoms that get worse. These symptoms may represent a serious problem that is an emergency. Do not wait to see if the symptoms will go away. Get medical help right away. Call your local emergency services (911 in the [place] Do not drive yourself to the hospital. Let the emergency medical personnel know if you think you have COVID-19. Summary COVID-19 is a respiratory infection that is caused by a virus. It is also known as coronavirus disease or novel coronavirus. It can cause serious infections, such as pneumonia, acute respiratory distress syndrome, acute respiratory failure, or sepsis. The virus that causes COVID-19 is contagious. This means that it can spread from person to person through droplets from coughs and sneezes. You are more likely to develop a serious illness if you are 65 years of age or older, have a weak immunity, live in a shelter, or have chronic disease. There is no medicine to treat COVID-19. Your health care provider will talk with you about ways to treat your symptoms. Take steps to protect yourself and others from infection. Wash your hands often and disinfect objects and surfaces that are frequently touched every day. Stay away from people who are sick and wear a mask if you are sick. This information is not intended to replace advice given to you by your health care provider. Make sure you discuss any questions you have with your health care provider. Document Released: 03/03/2019 Document Revised: 06/23/2019 Document Reviewed: 03/03/2019 [employer] Patient Education 2020 [employer]. Follow Up Care 11/27/2022 17:02:09 With:HECTOR ORTEZ MD Address: [address] [facility] [place] [address]- When:12/04/2022 14:20:00 Comments:This is your post-hospital follow-up appointment. Please arrive at 2:05 PM. Please bring your photo ID and insurance card. [facility] 11-28-2022 Note Discharge Instructions Thank you for allowing [facility] to assist you with your healthcare needs. The following is important discharge information regarding your hospital visit. Your Care Team HECTOR ORTEZ MD, MICHAEL APRN Your Diagnosis Altered mental state Altered mental status COVID-19 Fever > 75 years Renal insufficiency Rheumatoid arthritis What to do next Follow Up Appointments Follow Up with HECTOR ORTEZ MD When 12/04/2022 02:20 PM EDT Why: This is your post-hospital follow-up appointment. Please arrive at 2:05 PM. Please bring your photo ID and insurance card. Where: [address] [facility] [place] [address]- The Following Activity and Diet Have Been Ordered for You Discharge Activity - Ordered -- NO activity restrictions, 11/28/22 15:51:00 EDT Discharge Diet - Ordered -- No changes were made to your diet during your hospital stay. Please resume your pre hospitalization diet on discharge., 11/28/22 15:51:00 EDT The Following Treatments Have Been Ordered for You Discharge Labs Discharge Outpatient Labwork - Ordered -- BMP, elevated creatinine, follow-up within: 1 week, Results Notify to: HECTOR ORTEZ MD, 11/28/22 15:51:00 EDT Discharge Radiology No qualifying data available. Other Therapies No qualifying data available. Post Acute Orders No qualifying data available. Allergies NKA Medications Please ask your primary doctor or pharmacist before taking any other medication not listed, including over the counter drugs, herbal medications, vitamins and or supplements as they may interact with your home medications. What How Much When Instructions Last Dose Unchanged alendronate (Fosamax 70 mg oral tablet) 1 tab(s) by mouth Every day DID NOT TAKE Unchanged etanercept (Enbrel 25 mg subcutaneous kit) See instructions Subcutaneous 1xweek DID NOT TAKE Unchanged methotrexate (methotrexate 2.5 mg oral tablet) DID NOT TAKE Please take this list to your next doctor s visit. Bring all medications you take, including over the counter medications, herbals and other supplements with you to your doctor s visit. Patients and families are reminded to discard old lists and to update any records with all medication providers or retail pharmacies. Education Materials Confusion Confusion is the inability to think with the usual speed or clarity. People who are confused often describe their thinking as cloudy or unclear. Confusion can also include feeling disoriented. This means you are unaware of where you are or who you are. You may also not know the date or time. When confused, you may have difficulty remembering, paying attention, or making decisions. Some people also act aggressively when they are confused. In some cases, confusion may come on quickly. In other cases, it may develop slowly over time. How quickly confusion comes on depends on the cause. Confusion may be caused by: Head injury (concussion). Seizures. Stroke. Fever. Brain tumor. Decrease in brain function due to a vascular or neurologic condition (dementia). Emotions, like rage or terror. Inability to know what is real and what is not (hallucinations). Infections, such as a urinary tract infection (UTI). Using too much alcohol, drugs, or medicines. Loss of fluid (dehydration) or an imbalance of salts in the body (electrolytes). Lack of sleep. Low blood sugar (diabetes). Low levels of oxygen. This comes from conditions such as chronic lung disorders. Side effects of medicines, or taking medicines that affect other medicines (drug interactions). Lack of certain nutrients, especially niacin, thiamine, vitamin C, or vitamin B. Sudden drop in body temperature (hypothermia). Change in routine, such as traveling or being hospitalized. Follow these instructions at home: Pay attention to your symptoms. Tell your health care provider about any changes or if you develop new symptoms. Follow these instructions to control or treat symptoms. Ask a family member or friend for help if needed. Medicines Take dryv-sfs-gvhstlx and prescription medicines only as told by your health care provider. Ask your health care provider about changing or stopping any medicines that may be causing your confusion. Avoid pain medicines or sleep medicines until you have fully recovered. Use a pillbox or an alarm to help you take the right medicines at the right time. Lifestyle Eat a balanced diet that includes fruits and vegetables. Get enough sleep. For most adults, this is 7 9 hours each night. Do not drink alcohol. Do not become isolated. Spend time with other people and make plans for your days. Do not drive until your health care provider says that it is safe to do so. Do not use any products that contain nicotine or tobacco, such as cigarettes and e-cigarettes. If you need help quitting, ask your health care provider. Stop other activities that may increase your chances of getting hurt. These may include some work duties, sports activities, swimming, or bike riding. Ask your health care provider what activities are safe for you. What caregivers can do Find out if the person is confused. Ask the person to state his or her name, age, and the date. If the person is unsure or answers incorrectly, he or she may be confused. Always introduce yourself, no matter how well the person knows you. Remind the person of his or her location. Do this often. Place a calendar and clock near the person who is confused. Talk about current events and plans for the day. Keep the environment calm, quiet, and peaceful. Help the person do the things that he or she is unable to do. These include: ? Taking medicines. ? Keeping follow-up visits with his or her health care provider. ? Helping with household duties, including meal preparation. ? Running errands. Get help if you need it. There are several support groups for caregivers. If the person you are helping needs more support, consider day care, extended care programs, or a residential facility. The person's health care provider may be able to help evaluate these options. General instructions Monitor yourself for any conditions you may have. These may include: ? Checking your blood glucose levels, if you have diabetes. ? Watching your weight, if you are overweight. ? Monitoring your blood pressure, if you have hypertension. ? Monitoring your body temperature, if you have a fever. Keep all follow-up visits as told by your health care provider. This is important. Contact a health care provider if: Your symptoms get worse. Get help right away if you: Feel that you are not able to care for yourself. Develop severe headaches, repeated vomiting, seizures, blackouts, or slurred speech. Have increasing confusion, weakness, numbness, restlessness, or personality changes. Develop a loss of balance, have marked dizziness, feel uncoordinated, or fall. Develop severe anxiety, or you have delusions or hallucinations. These symptoms may represent a serious problem that is an emergency. Do not wait to see if the symptoms will go away. Get medical help right away. Call your local emergency services (911 in the [place] Do not drive yourself to the hospital. Summary Confusion is the inability to think with the usual speed or clarity. People who are confused often describe their thinking as cloudy or unclear. Confusion can also include having difficulty remembering, paying attention, or making decisions. Confusion may come on quickly or develop slowly over time, depending on the cause. There are many different causes of confusion. Ask for help from family members or friends if you are unable to take care of yourself. This information is not intended to replace advice given to you by your health care provider. Make sure you discuss any questions you have with your health care provider. Document Released: 03/05/2005 Document Revised: 01/28/2018 Document Reviewed: 01/28/2018 [employer] Patient Education 2020 [employer] COVID-19 COVID-19 is a respiratory infection that is caused by a virus called severe acute respiratory syndrome coronavirus 2 (SARS-CoV-2). The disease is also known as coronavirus disease or novel coronavirus. In some people, the virus may not cause any symptoms. In others, it may cause a serious infection. The infection can get worse quickly and can lead to complications, such as: Pneumonia, or infection of the lungs. Acute respiratory distress syndrome or ARDS. This is fluid build-up in the lungs. Acute respiratory failure. This is a condition in which there is not enough oxygen passing from the lungs to the body. Sepsis or septic shock. This is a serious bodily reaction to an infection. Blood clotting problems. Secondary infections due to bacteria or fungus. The virus that causes COVID-19 is contagious. This means that it can spread from person to person through droplets from coughs and sneezes (respiratory secretions). What are the causes? This illness is caused by a virus. You may catch the virus by: Breathing in droplets from an infected person's cough or sneeze. Touching something, like a table or a doorknob, that was exposed to the virus (contaminated) and then touching your mouth, nose, or eyes. What increases the risk? Risk for infection You are more likely to be infected with this virus if you: Live in or travel to an area with a COVID-19 outbreak. Come in contact with a sick person who recently traveled to an area with a COVID-19 outbreak. Provide care for or live with a person who is infected with COVID-19. Risk for serious illness You are more likely to become seriously ill from the virus if you: Are 65 years of age or older. Have a long-term disease that lowers your body's ability to fight infection (immunocompromised). Live in a shelter or long-term care facility. Have a long-term (chronic) disease such as: ? Chronic lung disease, including chronic obstructive pulmonary disease or asthma ? Heart disease. ? Diabetes. ? Chronic kidney disease. ? Liver disease. Are obese. What are the signs or symptoms? Symptoms of this condition can range from mild to severe. Symptoms may appear any time from 2 to 14 days after being exposed to the virus. They include: A fever. A cough. Difficulty breathing. Chills. Muscle pains. A sore throat. Loss of taste or smell. Some people may also have stomach problems, such as nausea, vomiting, or diarrhea. Other people may not have any symptoms of COVID-19. How is this diagnosed? This condition may be diagnosed based on: Your signs and symptoms, especially if: ? You live in an area with a COVID-19 outbreak. ? You recently traveled to or from an area where the virus is common. ? You provide care for or live with a person who was diagnosed with COVID-19. A physical exam. Lab tests, which may include: ? A nasal swab to take a sample of fluid from your nose. ? A throat swab to take a sample of fluid from your throat. ? A sample of mucus from your lungs (sputum). ? Blood tests. Imaging tests, which may include, X-rays, CT scan, or ultrasound. How is this treated? At present, there is no medicine to treat COVID-19. Medicines that treat other diseases are being used on a trial basis to see if they are effective against COVID-19. Your health care provider will talk with you about ways to treat your symptoms. For most people, the infection is mild and can be managed at home with rest, fluids, and hwhq-qpi-pmwjznz medicines. Treatment for a serious infection usually takes places in a hospital intensive care unit (ICU). It may include one or more of the following treatments. These treatments are given until your symptoms improve. Receiving fluids and medicines through an IV. Supplemental oxygen. Extra oxygen is given through a tube in the nose, a face mask, or a mcgee. Positioning you to lie on your stomach (prone position). This makes it easier for oxygen to get into the lungs. Continuous positive airway pressure (CPAP) or bi-level positive airway pressure (BPAP) machine. This treatment uses mild air pressure to keep the airways open. A tube that is connected to a motor delivers oxygen to the body. Ventilator. This treatment moves air into and out of the lungs by using a tube that is placed in your windpipe. Tracheostomy. This is a procedure to create a hole in the neck so that a breathing tube can be inserted. Extracorporeal membrane oxygenation (ECMO). This procedure gives the lungs a chance to recover by taking over the functions of the heart and lungs. It supplies oxygen to the body and removes carbon dioxide. Follow these instructions at home: Lifestyle If you are sick, stay home except to get medical care. Your health care provider will tell you how long to stay home. Call your health care provider before you go for medical care. Rest at home as told by your health care provider. Do not use any products that contain nicotine or tobacco, such as cigarettes, e-cigarettes, and chewing tobacco. If you need help quitting, ask your health care provider. Return to your normal activities as told by your health care provider. Ask your health care provider what activities are safe for you. General instructions Take hswt-qjn-vcnfzye and prescription medicines only as told by your health care provider. Drink enough fluid to keep your urine pale yellow. Keep all follow-up visits as told by your health care provider. This is important. How is this prevented? There is no vaccine to help prevent COVID-19 infection. However, there are steps you can take to protect yourself and others from this virus. To protect yourself: Do not travel to areas where COVID-19 is a risk. The areas where COVID-19 is reported change often. To identify high-risk areas and travel restrictions, check the CDC travel website: wwwnc.cdc.gov/travel/notices If you live in, or must travel to, an area where COVID-19 is a risk, take precautions to avoid infection. ? Stay away from people who are sick. ? Wash your hands often with soap and water for 20 seconds. If soap and water are not available, use an alcohol-based hand engine cowling installer. ? Avoid touching your mouth, face, eyes, or nose. ? Avoid going out in public, follow guidance from your state and local health authorities. ? If you must go out in public, wear a cloth face covering or face mask. ? Disinfect objects and surfaces that are frequently touched every day. This may include: ? Counters and tables. ? Doorknobs and light switches. ? Sinks and faucets. ? Electronics, such as phones, remote controls, keyboards, computers, and tablets. To protect others: If you have symptoms of COVID-19, take steps to prevent the virus from spreading to others. If you think you have a COVID-19 infection, contact your health care provider right away. Tell your health care team that you think you may have a COVID-19 infection. Stay home. Leave your house only to seek medical care. Do not use public transport. Do not travel while you are sick. Wash your hands often with soap and water for 20 seconds. If soap and water are not available, use alcohol-based hand engine cowling installer. Stay away from other members of your household. Let healthy household members care for children and pets, if possible. If you have to care for children or pets, wash your hands often and wear a mask. If possible, stay in your own room, separate from others. Use a different bathroom. Make sure that all people in your household wash their hands well and often. Cough or sneeze into a tissue or your sleeve or elbow. Do not cough or sneeze into your hand or into the air. Wear a cloth face covering or face mask. Where to find more information Centers for Disease Control and Prevention: www.cdc.gov/coronavirus/2019-nco v/index.html World Health Organization: www.who.int/health-topics/hurst virus Contact a health care provider if: You live in or have traveled to an area where COVID-19 is a risk and you have symptoms of the infection. You have had contact with someone who has COVID-19 and you have symptoms of the infection. Get help right away if: You have trouble breathing. You have pain or pressure in your chest. You have confusion. You have bluish lips and fingernails. You have difficulty waking from sleep. You have symptoms that get worse. These symptoms may represent a serious problem that is an emergency. Do not wait to see if the symptoms will go away. Get medical help right away. Call your local emergency services (911 in the [place] Do not drive yourself to the hospital. Let the emergency medical personnel know if you think you have COVID-19. Summary COVID-19 is a respiratory infection that is caused by a virus. It is also known as coronavirus disease or novel coronavirus. It can cause serious infections, such as pneumonia, acute respiratory distress syndrome, acute respiratory failure, or sepsis. The virus that causes COVID-19 is contagious. This means that it can spread from person to person through droplets from coughs and sneezes. You are more likely to develop a serious illness if you are 65 years of age or older, have a weak immunity, live in a shelter, or have chronic disease. There is no medicine to treat COVID-19. Your health care provider will talk with you about ways to treat your symptoms. Take steps to protect yourself and others from infection. Wash your hands often and disinfect objects and surfaces that are frequently touched every day. Stay away from people who are sick and wear a mask if you are sick. This information is not intended to replace advice given to you by your health care provider. Make sure you discuss any questions you have with your health care provider. Document Released: 03/03/2019 Document Revised: 06/23/2019 Document Reviewed: 03/03/2019 [employer] Patient Education 2020 [employer] Additional Information VACCINATE! IT SAVES LIVES! Members of the community who have not yet received the COVID-19 vaccine and would like to receive it can visit one of [facility] vaccine clinics. There are many vaccine clinic locations within the State. For locations and available times, please visit https://[email or web address].[place].gov/. It is important to note that some COVID mobile vaccine clinics are held outdoors and may be canceled in rainy or stormy conditions. To learn more about pediatric vaccinations (ages 5-11), we invite you to visit the [facility] webpage. [email or web address] [id number].html To learn more about the COVID-19 vaccine, we invite you to visit the CDC website for a list of frequently asked questions.https://www.cdc.gov/co ronavirus/2019-ncov/vaccines/faq .html [facility] Patient Portal Access Instructions: Stay connected with your healthcare team and access your personal medical information anytime with the [facility] Patient Portal. Please follow the directions below to create your [facility] account: 1.Access the email account you provided upon registration to the hospital/physician office.2.Look for an invitation email from [facility].3.Open the email and access the invitation link: Accept Invitation to [facility].4.Fill in the required villanueva to create your account. To access your account, visit [employer]/[email or web address]. Click the blue button labeled Access Patient Portal and then log in with the username and password that you created in the steps above. You will be able to view your test results, lab results, a summary of your visits, upcoming appointments and more. There is also a convenient messaging option where you can send secure messages to your provider. In addition, you will have the ability to download any documents or summaries to your computer and/or send the information securely to a physician. Remember that your healthcare information is confidential, so carefully consider who you will allow to register on the [facility] Patient Portal for access to your information. You can also access the [facility] Patient Portal on the [facility] tracy. Simply click on Patient Portal and then log into your account. If you would like to receive a full copy of your medical records, please contact the [facility] Medical Records Department by calling [phone], Thursday through Thursday between 8 a.m. and 4:30 p.m. HOW TO SAFELY DISPOSE OF PRESCRIPTION MEDICATIONS Please use one of the following methods to safely dispose of your unused medications. 1.Use a drug disposal kit: the drug disposal pouch allows you to safely discard your old and unused drugs. Ask your nurse to give you one when you are discharged.2.Visit a local take-back location: Many local pharmacies and police departments have programs that collect old and unwanted prescription drugs. Call your local pharmacy or go to http://AAMPP.SocialExpress/0A1Es9x to find one close to you.3.Make use of household items: Use cat litter or old coffee grounds to dispose medications if other options are not available. Mix your drugs with these household products, seal them in an airtight container and throw it into the garbage. Call [facility]: [phone] to be sure your drugs can be disposed of in this way. Some medicines may require a different approach.4.Never flush your medications down the toilet. IF YOU HAVE BEEN PRESCRIBED AN OPIOID FOR PAIN If you have been prescribed an opioid (such as hydrocodone, oxycodone or morphine), it is critical to understand the possible side effects and risks of opioid pain medications. Even when taken as directed, opioids can have several side effects including: Tolerance, meaning you might need to take more of a medication for the same pain relief. Nausea, vomiting and/or constipation. Sleepiness, dizziness, dry mouth, confusion, depression or itching. Physical dependence, meaning you have withdrawal symptoms when a medication is stopped, can develop within a few days. KNOW YOUR RESPONSIBILITIES It is important to know exactly how much and how often to take the opioid pain medications you are prescribed. Never take opioids in higher amounts or more often than prescribed. Do not combine opioids with alcohol or other drugs that cause drowsiness, such as benzodiazepines, also known as benzos, including diazepam and alprazolam, muscle relaxants or sleep aids. Never sell or share prescription opioids. This is illegal. Store opioids in a secure place and out of reach of others (including children, family, friends and visitors). The last page of this document has been signed and retained as a CHART COPY. Signatures Patient Education Materials Confusion COVID-19 Medication Leaflets My discharge plan and instructions have been reviewed and explained to me and I,BECKYALMAJOANN BLUE understand my current condition and have read and understand these discharge instructions. I have received a written copy of the plan/instructions. If I have questions, I am aware that I should contact my doctor. Patient/Administrative Fellow Signature: Date/Time: Relationship to Patient: Witness Name/Signature: Date/Time: [facility] 1. COVID-19 2. Altered mental status 3. Renal insufficiency 4. Rheumatoid arthritis Positive for COVID-19, possible cause of altered mentation. Tolerating room air. Dexamethasone has been stopped. Given history rheumatoid arthritis, initiated on remdesivir. Altered mental status as mentioned above, this has resolved. Was likely secondary to COVID-19. Renal insufficiency, creatinine 1.23 today, baseline around 0.9. Has had poor oral intake over the past week. 1 L normal saline ordered with repeat labs this afternoon. Rheumatoid arthritis, continue home medications on discharge. CODE STATUS: Full code Discussed with patient at the bedside, discussed with over the phone. [facility] 10-20-2023 History and physical note Date of Service 11/28/2022 Chief Complaint brought in by EMS for altered mental status, fever History of Present Illness 82-year-old female with a past medical history of tobacco use and rheumatoid arthritis. Presented to [facility] emergency department On 11/27/2022 with confusion and fever. EMS was called by her . Was intermittently confused on presentation which is not normal for her. Patient was not sure why the ambulance was called. On presentation, noted to be positive for COVID-19. Urinalysis not concerning for infection. CBC, chemistry panel unremarkable. Was apparently hypoxic requiring 2 L nasal cannula, has since been weaned off. On exam, patient is sitting up in bed. States she feels well. No longer confused. Tolerating room air. Tolerating oral intake. No chest pain or shortness of breath. Review of Systems Review of Systems: Reviewed in detail, including general health, HEENT, cardiovascular, respiratory, gastrointestinal, genitourinary, endocrine, musculoskeletal, neurologic, vascular, skin, and psychiatric. All are negative except for those listed in the History of Present Illness Physical Exam Vitals and Measurements T: 36.7 C (Oral) TMIN: 36.7 C (Oral) TMAX: 39 C (Oral) HR: 80(Monitored) RR: 18 BP: 148/78 SpO2: 95% HT: 155 cm WT: 58.8 kg BMI: 23.6 Weight Current Weight Dosing Weight: 56.7 kg (11/27/22) Current Weight: 58.8 kg (11/28/22) Dosing Weight: 61.5 kg (11/27/22) Physical Exam General: Alert, appropriate and awake, oriented to time, people and place Skin: No rash. Warm, Dry, Intact HEENT: Head is normocephalic and atraumatic. No lesions. Pupils equal in size. Extraocular movements within normal limits. Nose: No septal deviation. Mouth: Oropharynx mucosa is without lesion. Neck: Supple. No lymphadenopathy, thyromegaly noted. Lungs: Bilaterally clear/diminished breath sounds with no crepitation or wheeze. Unlabored Cardiovascular: Heart is regular rhythm, S1S2, No extra-audible heart tones Abdomen: Abdomen is soft, nontender. Bowel sounds positive all four quadrants. Extremities: No clubbing, cyanosis or edema. Peripheral pulses palpable. No calf tenderness. Adequate peripheral circulation. Neurological: Following simple commands, moving all extremities. Lab Results 11/28 00:12 Glucose Level: 104 Sodium Level: 135 L Potassium Level: 4.3 BUN: 20 H Creatinine Lvl (s): 1.23 H 11/27 17:26 WBC: 5.7 Hgb: 15.7 Hct: 45.5 Platelet: 167 Neutrophil %: 68.0 Glucose Level: 106 Sodium Level: 138 Potassium Level: 4.3 BUN: 14 Creatinine Lvl (s): 0.99 Assessment/Plan 1. COVID-19 2. Altered mental status 3. Renal insufficiency 4. Rheumatoid arthritis Positive for COVID-19, possible cause of altered mentation. Tolerating room air. Dexamethasone has been stopped. Given history rheumatoid arthritis, initiated on remdesivir. Altered mental status as mentioned above, this has resolved. Was likely secondary to COVID-19. Renal insufficiency, creatinine 1.23 today, baseline around 0.9. Has had poor oral intake over the past week. 1 L normal saline ordered with repeat labs this afternoon. Rheumatoid arthritis, continue home medications on discharge. CODE STATUS: Full code Discussed with patient at the bedside, discussed with over the phone. Problem List/Past Medical History Ongoing Arthritis CAP (community acquired pneumonia) Rheumatoid arthritis Urinary tract infection Historical No qualifying data Procedure/Surgical History Cholecystectomy Medications Home Medications (3) Active Enbrel 25 mg subcutaneous kit See Instructions Fosamax 70 mg oral tablet 70 mg = 1 tab(s), Oral, Daily methotrexate 2.5 mg oral tablet Allergies NKA Social History Smoking Status - 07/29/2014 Current every day smoker Alcohol - Denies Alcohol Use, 11/27/2022 Use: Never., 12/03/2020 Home/Environment Domestic Concerns: None. Living situation: Home/Independent. Lives In: Single level home. Current Home Treatments None. Professional Skilled Services or Special Community Resources None., 11/02/2021 Nutrition/Health Type of diet: Regular. Appetite Fair. Eating Difficulties None. Enteral Feedings No. TPN Feedings No. Skin Breakdown No., 12/03/2020 Substance Abuse - Denies Substance Abuse, 11/27/2022 Use: Never., 12/03/2020 Tobacco - Denies Tobacco Use, 11/27/2022 Nicotine Use: 10 or more cigarettes (1/2 pack or more)/day in last 30 days. Type: Cigarettes., 12/03/2020 Family History Cancer: Mother and Father. Immunizations pneumococcal 13-valent conjugate vaccine: 0 unknown unit (07/05/15) pneumococcal 23-valent vaccine(Pneumovax: 0 unknown unit (01/03/14) tetanus-diphtheria toxoids: 0.5 unknown unit (09/02/16) Code Status Code Status - Ordered -- 11/27/22 18:40:00 EDT, Full Code, Constant Order Digitally Signed by DAVID TERRELL on 11/28/2022 10:50 AM [address]20-2023 Discharge summary Date of Service 11/28/2022 Discharge Diagnosis Altered mental status ([id number] - [facility]) Fever > 75 years ([id number] - [facility]) COVID-19 Renal insufficiency Additional Orders: Ordered: BMP,11/28/22 14:00:00 EDT, Timed Study (collect at specified time), Blood, Once, Stop date11/28/22 14:00:00 EDT Modified: NS ( IV Med line flush),Start: 11/28/22 9:00:00 EDT, Dose = 100 mL, Soln, IV Piggyback, qDay, 5 dose(s), Stop: 12/02/22 9:00:00 EDT, Rate: 200 mL/hr, Infuse over: 30 minute(s), 0, 11/28/22 8:39:00 EDT Discontinued: NS 1,000 mL,Start: 11/28/22 8:43:00 EDT, Rate: 75 mL/hr, 11/28/22 8:43:00 EDT Other status: NS 1000 mL Bolus,Start: 11/28/22 9:30:00 EDT, Dose = 1,000 mL, Soln, IV Bolus, Once, Stop: 11/28/22 9:30:00 EDT, Rate: 500 mL/hr, hour(s), 11/28/22 9:19:00 EDT(Complete) Other status: remdesivir 100 mg intravenous injection,Start: 11/28/22 8:45:00 EDT, Dose = 200 mg, =40 mL, IV Piggyback, Once, Stop: 11/28/22 8:45:00 EDT, Rate: 250 mL/hr, Infuse over: 60 minute(s), 0, 11/28/22 8:39:00 EDT(Complete) Modified: remdesivir 100 mg intravenous injection,Start: 11/29/22 9:00:00 EDT, Dose = 100 mg, = 20 mL, IV Piggyback, qDay, 4 dose(s), Stop: 12/02/22 9:00:00 EDT, Rate: 250 mL/hr, Infuse over: 60 minute(s), 0, 11/28/22 22:40:00 EDT Hospital Course 82-year-old female with a past medical history of tobacco use and rheumatoid arthritis. Presented to [facility] emergency department On 11/27/2022 with confusion and fever. EMS was called by her . Was intermittently confused on presentation which is not normal for her. Patient was not sure why the ambulance was called. On presentation, noted to be positive for COVID-19. Urinalysis not concerning for infection. CBC, chemistry panel unremarkable. Was apparently hypoxic requiring 2 L nasal cannula, has since been weaned off. Patient states she feels well on exam, asking to be discharged. Noted to be alert, oriented x4. Per nursing, no confusion overnight. This morning, did have mildly elevated creatinine 1.23, patient has endorsed poor oral intake. 1 L normal saline ordered. We will recheck labs this afternoon. Will be medically optimized for discharge pending results of BMP. To follow-up with PCP in the outpatient setting. Discussed with patient at bedside, discussed with over the phone. Allergies NKA Consults No qualifying data available. Physical Exam Vitals and Measurements T: 36.7 C (Oral) TMIN: 36.7 C (Oral) TMAX: 39 C (Oral) HR: 80(Monitored) RR: 18 BP: 148/78 SpO2: 95% HT: 155 cm WT: 58.8 kg BMI: 23.6 Weight Current Weight Dosing Weight: 56.7 kg (11/27/22) Current Weight: 58.8 kg (11/28/22) Dosing Weight: 61.5 kg (11/27/22) Physical Exam General: Alert, appropriate and awake, oriented to time, people and place Skin: No rash. Warm, Dry, Intact HEENT: Head is normocephalic and atraumatic. No lesions. Pupils equal in size. Extraocular movements within normal limits. Nose: No septal deviation. Mouth: Oropharynx mucosa is without lesion. Neck: Supple. No lymphadenopathy, thyromegaly noted. Lungs: Bilaterally clear/diminished breath sounds with no crepitation or wheeze. Unlabored Cardiovascular: Heart is regular rhythm, S1S2, No extra-audible heart tones Abdomen: Abdomen is soft, nontender. Bowel sounds positive all four quadrants. Extremities: No clubbing, cyanosis or edema. Peripheral pulses palpable. No calf tenderness. Adequate peripheral circulation. Neurological: Following simple commands, moving all extremities. Code Status Code Status - Ordered -- 11/27/22 18:40:00 EDT, Full Code, Constant Order Admission Date 11/27/2022 Discharge Date 11/28/2022 Patient Instructions You will be discharged home, continue your home medications. Follow-up with your primary care provider. You have labs drawn in the next 2 days to evaluate your renal function. Return to the Emergency Department for any new or worsening symptoms. Medications Unchanged alendronate (Fosamax 70 mg oral tablet)1 tab(s) by mouth every day. etanercept (Enbrel 25 mg subcutaneous kit)Subcutaneous 1xweek. methotrexate (methotrexate 2.5 mg oral tablet) Follow Up Follow Up with HECTOR ORTEZ MD When 12/04/2022 02:20 PM EDT Why: This is your post-hospital follow-up appointment. Please arrive at 2:05 PM. Please bring your photo ID and insurance card. Where: [address] [place] [address]- Follow Up Appointments No qualifying data available. Follow Up Labs/Studies Discharge Labs No Follow-up Labs Discharge Studies No Follow-up Studies Discharge Diet No qualifying data available. Discharge Activity No qualifying data available. Condition on Discharge stable Discharge Disposition home Information Provided To patient and Time Spent 33 minutes spent on discharge with greater than 50% that time spent on direct patient care and carecoordination. Digitally Signed by DAVID TERRELL on 11/28/2022 10:[address] [facility]10-19-2023 Note ORIGINAL EXAMINATION: TWO XRAY VIEWS OF THE CHEST11/27/2022 6:00 pm COMPARISON: Chest radiograph 11/01/2021 HISTORY: ORDERING SYSTEM PROVIDED HISTORY: Reason for Exam: Altered mental status FINDINGS: The cardiomediastinal silhouette is stable given difference in technique and patient rotation. Redemonstration of prominent atherosclerosis of the aortic knob and tortuosity of the aorta. There is no pulmonary vascular congestion. Redemonstration of calcified nodules at the left apex and left suprahilar region. There is no focal consolidation. No pleural effusion. No pneumothorax. No acute osseous abnormality. Osseous detail is limited. IMPRESSION: No acute cardiopulmonary process by radiograph. I have personally reviewed the images of this examination and agree with the resident's findings and interpretation. Interpreted by: Pietro Swartz Preliminary Report By: David Gomez Electronically signed By Pietro Swartz Dictated Date: 11/27/2022 6:28:44 PM Prelim Date: 11/27/2022 6:30:51 PM Sign Date: 11/27/2022 7:56:52 PM Ordering Provider: [facility]10-19-2023 SARS-CoV-2 (COVID-19) RNA KIRBY+probe Ql (Nph)Positive *ABN* (11/27/22 5:26 PM)AO Auto Urine [id number] NoteHNO ID: [id number] Author: Hernesto Galvin APRN.[employer]ER Service: ? Author Type: Nurse Practitioner Type: Progress Notes Filed: 10/14/2022 11:33 AM Note Text: This is a 82 year old female who presents today with: Patient presents with: Follow Up: ER follow for UTI HISTORY OF PRESENT ILLNESS: Joann Prieto is a 82 year old female. Patient presents with: Follow Up: ER follow for UTI HOSPITAL/ER FOLLOW UP: Reason for visit: Confusion and weakness Which facility: [facility] Date of visit: 09/07/2022 Diagnosis: UTI Testing done: CBC shows mild leukocytosis, urinalysis consistent with UTI. BMP was normal. Treatment given: IV bolus and Tylenol. Given Rocephin and at home prescription for Keflex. Current symptoms: Doing well since hospital discharge. Has been increasing water intake. No urinary symptoms. No fever, chills, or confusion. PAST MEDICAL HISTORY: PAST MEDICAL HISTORY Diagnosis Date Diverticulosis of colon (without mention of hemorrhage) Essential hypertension, benign Osteoporosis, unspecified Pneumonia, organism unspecified(486) 1994 Rheumatoid arthritis (HCC) Urinary calculus, unspecified 11/09 passed spontaneous PAST SURGICAL HISTORY Procedure Laterality Date COLONOSCOP W/ OR W/O [facility] SPEC 10/20/2007 Colonoscopy REMOVAL GALLBLADDER 1997 Cholecystectomy ALLERGIES Patient has no known allergies. MEDICATIONS Current Outpatient Medications Medication Sig Etanercept (ENBREL) 50 mg/mL (1 mL) injection Inject 1 mL subcutaneously one time a week. entire contents of 1 syringe (50mg/1mL). aspirin, enteric coated (ASPIRIN, ENTERIC COATED) 81 mg EC tablet Take 81 mg by mouth once daily. methotrexate 2.5 mg tablet Take 8 tablets by mouth once each week. folic acid 1 mg tablet Take 1 tablet by mouth once daily. CALCIUM CARBONATE (CALCIUM 600 ORAL) Take by mouth once daily. cholecalciferol (VITAMIN D) 1,000 unit tab tablet Take 1,000 Units by mouth once daily. No current facility-administered medications for this visit. FAMILY HISTORY Problem Relation Age of Onset Emphysema Mother smoker Cancer Father liver cancer, bone cancer Diabetes Father Diabetes Paternal Grandmother Diabetes Paternal Aunt Diabetes Maternal Aunt Social History Tobacco Use Smoking status: Every Day Packs/day: 1.50 Years: 40.00 Additional pack years: 0.00 Total pack years: 60.00 Types: Cigarettes Smokeless tobacco: Never Tobacco comments: No ready to quit, likes to smoke Substance Use Topics Alcohol use: No Drug use: No REVIEW OF SYSTEMS GENERAL: No weight loss, malaise or fevers/chills HEENT: Negative for frequent or significant headaches, No changes in hearing or vision. NECK: Negative for lumps, goiter, pain and significant neck swelling RESPIRATORY: Negative for cough, hemoptysis, wheezing, dyspnea or shortness of breath CARDIOVASCULAR: Negative for chest pain, leg swelling, orthopnea, or palpitations GI: No nausea, vomiting, or diarrhea/constipation. No hematochezia/melena. No heartburn or reflux symptoms. : No history of dysuria, frequency or incontinence MUSCULOSKELETAL: Negative for joint pain or swelling. SKIN: Negative for lesions, rash, and itching ENDOCRINE: Negative for cold or heat intolerance, polyuria, polydipsia and goiter NEURO: No history of headaches, syncope, paralysis, seizures or tremors MOOD: Negative for depression, anxiety, or suicidal ideation. EXAM: BP 130/80 Pulse 86 Resp 18 Wt 58.1 kg (128 lb) SpO2 98% BMI 24.59 kg/m? PHYSICAL EXAM: General Appearance: Well appearing, alert, in no acute distress, well-hydrated, well nourished. Skin: Skin color, texture, turgor normal, no suspicious rashes or lesions. Head: Normocephalic, no masses, lesions, tenderness or abnormalities. Eyes: Anicteric sclera. Extraocular movements are intact. Lungs: Lungs clear to auscultation. No wheezing, rhonchi, rales. Heart: RRR without murmur, gallop, or rubs. No ectopy. Abdomen: Normal abdominal exam, Abdomen soft, non-tender. Bowel sounds normal. No masses, organomegaly, Negative CVA tenderness. Extremities: No deformities, edema, skin discoloration, clubbing or cyanosis. Good capillary refill. Peripheral Pulses: Normal, Capillary refill <2secs, strong peripheral pulses, Pulses palpable. Neurologic: Gait normal. Sensation grossly intact. ASSESSMENT/PLAN: 1. Hospital discharge follow-up - ICD9: V67.59, ICD10: Z09 (primary diagnosis) - Doing well since hospital discharge. 2. Acute cystitis without hematuria - ICD9: 595.0, ICD10: N30.00 - Stable, symptom resolved. - Instructed to stay well hydrated during the day. - Follow up in office if she develops urinary symptoms for feeling ill. Follow-up as needed. Discussed treatment plan and patient voices understanding. Patient's questions answered appropriately. Medications and potential side effects were discussed and patient voices unde (more content not included)...[facility]09-05-2023 Instructions* Patient Instructions* Hernesto Galvin APRN.CNP - 10/14/2022 10:34 AM EDT Stay well hydrated, goal of 3, 16 ounces bottles of water per day. Follow up in office if you notice any urinary symptoms or not feeling well. Red flag symptoms go to ER. Follow Up as needed. [facility] History of Present illness Narrative* Hernesto Galvin APRN.CNP - 10/14/2022 10:20 AM EDT This is a 82 year old female who presents today with: Patient presents with: Follow Up: ER follow for UTI HISTORY OF PRESENT ILLNESS: Joann Prieto is a 82 year old female. Patient presents with: Follow Up: ER follow for UTI HOSPITAL/ER FOLLOW UP: Reason for visit: Confusion and weakness Which facility: [facility] Date of visit: 09/07/2022 Diagnosis: UTI Testing done: CBC shows mild leukocytosis, urinalysis consistent with UTI. BMP was normal. Treatment given: IV bolus and Tylenol. Given Rocephin and at home prescription for Keflex. Current symptoms: Doing well since hospital discharge. Has been increasing water intake. No urinarysymptoms. No fever, chills, or confusion. PAST MEDICAL HISTORY: PAST MEDICAL HISTORY Diagnosis Date Diverticulosis of colon (without mention of hemorrhage) Essential hypertension, benign Osteoporosis, unspecified Pneumonia, organism unspecified(486) 1994 Rheumatoid arthritis (HCC) Urinary calculus, unspecified 11/09 passed spontaneous PAST SURGICAL HISTORY Procedure Laterality Date COLONOSCOP W/ OR W/O [facility] SPEC 10/20/2007 Colonoscopy REMOVAL GALLBLADDER 1997 Cholecystectomy ALLERGIES Patient has no known allergies. MEDICATIONS Current Outpatient Medications Medication Sig Etanercept (ENBREL) 50 mg/mL (1 mL) injection Inject 1 mL subcutaneously one time a week. entire contents of 1 syringe (50mg/1mL). aspirin, enteric coated (ASPIRIN, ENTERIC COATED) 81 mg EC tablet Take 81 mg by mouth once daily. methotrexate 2.5 mg tablet Take 8 tablets by mouth once each week. folic acid 1 mg tablet Take 1 tablet by mouth once daily. CALCIUM CARBONATE (CALCIUM 600 ORAL) Take by mouth once daily. cholecalciferol (VITAMIN D) 1,000 unit tab tablet Take 1,000 Units by mouth once daily. No current facility-administered medications for this visit. FAMILY HISTORY Problem Relation Age of Onset Emphysema Mother smoker Cancer Father liver cancer, bone cancer Diabetes Father Diabetes Paternal Grandmother Diabetes Paternal Aunt Diabetes Maternal Aunt Social History Tobacco Use Smoking status: Every Day Packs/day: 1.50 Years: 40.00 Additional pack years: 0.00 Total pack years: 60.00 Types: Cigarettes Smokeless tobacco: Never Tobacco comments: No ready to quit, likes to smoke Substance Use Topics Alcohol use: No Drug use: No REVIEW OF SYSTEMS GENERAL: No weight loss, malaise or fevers/chills HEENT: Negative for frequent or significant headaches, No changes in hearing or vision. NECK: Negative for lumps, goiter, pain and significant neck swelling RESPIRATORY: Negative for cough, hemoptysis, wheezing, dyspnea or shortness of breath CARDIOVASCULAR: Negative for chest pain, leg swelling, orthopnea, or palpitations GI: No nausea, vomiting, or diarrhea/constipation. No hematochezia/melena. No heartburn or reflux symptoms. : No history of dysuria, frequency or incontinence MUSCULOSKELETAL: Negative for joint pain or swelling. SKIN: Negative for lesions, rash, and itching ENDOCRINE: Negative for cold or heat intolerance, polyuria, polydipsia and goiter NEURO: No history of headaches, syncope, paralysis, seizures or tremors MOOD: Negative for depression, anxiety, or suicidal ideation. EXAM: BP 130/80 Pulse 86 Resp 18 Wt 58.1 kg (128 lb) SpO2 98% BMI 24.59 kg/m PHYSICAL EXAM: General Appearance: Well appearing, alert, in no acute distress, well-hydrated, well nourished. Skin: Skin color, texture, turgor normal, no suspicious rashes or lesions. Head: Normocephalic, no masses, lesions, tenderness or abnormalities. Eyes: Anicteric sclera. Extraocular movements are intact. Lungs: Lungs clear to auscultation. No wheezing, rhonchi, rales. Heart: RRR without murmur, gallop, or rubs. No ectopy. Abdomen: Normal abdominal exam, Abdomen soft, non-tender. Bowel sounds normal. No masses, organomegaly, Negative CVA tenderness. Extremities: No deformities, edema, skin discoloration, clubbing or cyanosis. Good capillary refill. Peripheral Pulses: Normal, Capillary refill <2secs, strong peripheral pulses, Pulses palpable. Neurologic: Gait normal. Sensation grossly intact. ASSESSMENT/PLAN: 1. Hospital discharge follow-up - ICD9: V67.59, ICD10: Z09 (primary diagnosis) - Doing well since hospital discharge. 2. Acute cystitis without hematuria - ICD9: 595.0, ICD10: N30.00 - Stable, symptom resolved. - Instructed to stay well hydrated during the day. - Follow up in office if she develops urinary symptoms for feeling ill. Follow-up as needed. Discussed treatment plan and patient voices understanding. Patient's questions answered appropriately. Medications and potential side effects were discussed and patient voices understanding. Hernesto Galvin APRN.[employer] This note was partially generated using [employer] recognition system. Note was reviewed for accuracy. There may be minor misspellings or grammar miscues with Dragon voice recognition. documented in this [facility] NotePatient Outreach (NETNAV) JOANN PRIETO ([id number]) 1940 F Date Time Provider Department 10/01/22 KIANNA CAMPOS During your visit today, we recorded the following information about you: Kianna Campos 10/01/2022 9:12 AM Signed POPULATION HEALTH NAVIGATION OUTREACH Action/ attempt: Left message for patient including my direct number [facility] GAPS I73.9 - PVD (peripheral vascular disease) (HCC) - [id number] Last Billed 12/27/2020 J43.8 - Other emphysema (HCC) - [id number] Last Billed 12/27/2020 M05.741,M05.742 - Rheumatoid arthritis involving both hands with positive rheumatoid factor (HCC) - [id number] Last Billed 12/27/2020 M05.9 - Rheumatoid arthritis with positive rheumatoid factor (HCC) - [id number] Last Billed 12/27/2020 Care Gaps Annual Wellness visit Controlling Blood Pressure Patient Identified by Name and : NO Outreach Outcome/Action Unable to reach patient: Left message Did you use a PCP flex slot to schedule this appointment? N/A Reason for Outreach HCC or suspected condition Payer: Payor: O MEDICARE / Plan: MMO [employer] HMO / Product Type: HMO / Care Gap Reviewed:: Annual Wellness visit Controlling Blood Pressure Reminder: Reminder note to check Health Maintenance for items below Health Maintenance items due: COVID-19 VACCINE(1) Never done SPIROMETRY Never done BP CONTROLLED (<130/80) Never done SHINGRIX VACCINE(1 of 2) Never done ANNUAL PCP TEAM CHRONIC DISEASE VISIT due on 12/27/2021 ADVANCE DIRECTIVE DISCUSSION Never done DEPRESSION ASSESSMENT Never done DIABETES SCREEN due on 02/21/2022 Navigation Signature: Kianna Campos October 01, 2022 9:08 AM Allergies As of Date: 10/01/2022 (No Known Allergies) Date Reviewed: 12/27/2020 Reviewed by: Vonnie Andres Ma - Fully Assessed Reason for Visit: Population Health Navigation Outreach [3910] Cmt: HCC Gaps Prescriptions as of 10/01/2022 - Etanercept (ENBREL) 50 mg/mL (1 mL) injection Inject 1 mL subcutaneously one time a week. entire contents of 1 syringe (50mg/1mL). - aspirin, enteric coated (ASPIRIN, ENTERIC COATED) 81 mg EC tablet Take 81 mg by mouth once daily. - methotrexate 2.5 mg tablet Take 8 tablets by mouth once each week. - folic acid 1 mg tablet Take 1 tablet by mouth once daily. - CALCIUM CARBONATE (CALCIUM 600 ORAL) Take by mouth once daily. - cholecalciferol (VITAMIN D) 1,000 unit tab tablet Take 1,000 Units by mouth once daily. Problem List As Of Date 10/01/2022 Noted Resolved TOBACCO USE DISORDER [F17.200] 07/27/2006 Other emphysema (HCC) [J43.8] 07/27/2006 Osteoporosis [M81.0] 07/27/2006 ELEV BL PRES W/O HYPERTN [R03.0] 07/27/2006 01/19/2007 BENIGN HYPERTENSION [I10] 01/19/2007 VITAMIN D DEFICIENCY NOS [E55.9] 01/19/2007 07/23/2007 Elevated glucose [R73.09] 01/22/2010 Rheumatoid arthritis with positive rheumatoid f*03/05/2015 Smoking greater than 40 pack years [F17.210] 08/24/2015 Rheumatoid arthritis involving both hands with *05/08/2016 PVD (peripheral vascular disease) ([facility]) [I73.9] 10/17/2017 Encounter Status:Closed by KIANNA CAMPOS on 10/01/22[facility] 10-01-2022 NoteHNO ID: [id number] Author: Kianna Campos Service: ? Author Type: ? Type: Progress Notes Filed: 10/01/2022 9:12 AM Note Text: POPULATION HEALTH NAVIGATION OUTREACH Action/FYI 1st attempt: Left message for patient including my direct number HCC GAPS I73.9 - PVD (peripheral vascular disease) (HCC) - [id number] Last Billed 12/27/2020 J43.8 - Other emphysema (HCC) - [id number] Last Billed 12/27/2020 M05.741,M05.742 - Rheumatoid arthritis involving both hands with positive rheumatoid factor (HCC) - [id number] Last Billed 12/27/2020 M05.9 - Rheumatoid arthritis with positive rheumatoid factor (HCC) - [id number] Last Billed 12/27/2020 Care Gaps Annual Wellness visit Controlling Blood Pressure Patient Identified by Name and : NO Outreach Outcome/Action Unable to reach patient: Left message Did you use a PCP flex slot to schedule this appointment? N/A Reason for Outreach HCC or suspected condition Payer: Payor: MMO MEDICARE / Plan: [employer] HMO / Product Type: HMO / Care Gap Reviewed:: Annual Wellness visit Controlling Blood Pressure Reminder: Reminder note to check Health Maintenance for items below Health Maintenance items due: COVID-19 VACCINE(1) Never done SPIROMETRY Never done BP CONTROLLED (<130/80) Never done SHINGRIX VACCINE(1 of 2) Never done ANNUAL PCP TEAM CHRONIC DISEASE VISIT due on 12/27/2021 ADVANCE DIRECTIVE DISCUSSION Never done DEPRESSION ASSESSMENT Never done DIABETES SCREEN due on 02/21/2022 Navigation Signature: Kianna Campos October 01, 2022 9:08 [facility]08-23-2023 History of Present illness Narrative* Kianna Campos - 10/01/2022 9:08 AM EDT POPULATION HEALTH NAVIGATION OUTREACH Action/ attempt: Left message for patient including my direct number HCC GAPS I73.9 - PVD (peripheral vascular disease) (HCC) - [id number] Last Billed 12/27/2020 J43.8 - Other emphysema (HCC) - [id number] Last Billed 12/27/2020 M05.741,M05.742 - Rheumatoid arthritis involving both hands with positive rheumatoid factor (HCC) -[id number] Last Billed 12/27/2020 M05.9 - Rheumatoid arthritis with positive rheumatoid factor (HCC) - [id number] Last Billed 12/27/2020 Care Gaps Annual Wellness visit Controlling Blood Pressure Patient Identified by Name and : NO Outreach Outcome/Action Unable to reach patient: Left message Did you use a PCP flex slot to schedule this appointment? N/A Reason for Outreach HCC or suspected condition Payer: Payor: [facility] [place] MEDICARE / Plan: [employer] HMO / Product Type: HMO / Care Gap Reviewed:: Annual Wellness visit Controlling Blood Pressure Reminder: Reminder note to check Health Maintenance for items below Health Maintenance items due: COVID-19 VACCINE(1) Never done SPIROMETRY Never done BP CONTROLLED (<130/80) Never done SHINGRIX VACCINE(1 of 2) Never done ANNUAL PCP TEAM CHRONIC DISEASE VISIT due on 12/27/2021 ADVANCE DIRECTIVE DISCUSSION Never done DEPRESSION ASSESSMENT Never done DIABETES SCREEN due on 02/21/2022 Navigation Signature: Kianna Campos October 01, 2022 9:08 AM documented in this encounterGalion [facility]08-[facility]23 Note. MICRO - Microbiology PROCEDURE: Urine Culture [*1] SOURCE: Urine, Straight BODY SITE: Catherized COLLECTED DATE/TIME: 09/07/2022 16:09 EDT RECEIVED DATE/TIME: 09/08/2022 15:12 EDT START DATE/TIME: 09/08/2022 15:12 EDT FREE TEXT SOURCE: FINAL REPORTS Final Report [] Verified Date/Time/Personnel: 09/10/2022 08:37 EDT >100,000 cfu/ml Escherichia coli PRELIMINARY REPORTS Preliminary Report [] Verified Date/Time/Personnel: 09/09/2022 12:42 EDT >100,000 cfu/ml Escherichia coli JOSE to follow SUSCEPTIBILITY RESULTS Escherichia coli Antibiotic JOSE Dilut JOSE Inter Ampicillin >16 Resistant Ampicillin/ 8/4 Susceptible Sulbactam Aztreonam <=4 Susceptible Cefazolin <=2 Susceptible Ciprofloxacin <=0.25 Susceptible Ertapenem <=0.5 Susceptible Gentamicin <=2 Susceptible Imipenem <=1 Susceptible Levofloxacin <=0.5 Susceptible Meropenem <=1 Susceptible Minocycline >8 Resistant Nitrofurantoin <=32 Susceptible Piperacillin/ <=8 Susceptible Tazobactam Trimethoprim/ >2/38 Resistant Sulfa Performing Locations *1: This test was performed at: [facility], [address] [place] [address], [id number] , [facility] ([place])09-07-2022 Hospital Discharge instructions Patient Education 09/07/2022 18:39:52 Bladder Infection, Female (Adult) Bladder Infection, Female (Adult) Urine is normally doesn't have any bacteria in it. But bacteria can get into the urinary tract fromthe skin around the rectum. Or they can travel in the blood from elsewhere in the body. Once they are in your urinary tract, they can cause infection in the urethra (urethritis), the bladder (cystitis), or the kidneys (pyelonephritis). The most common place for an infection is in the bladder. This is called a bladder infection. This is one of the most common infections in women. Most bladder infections are easily treated. They are not serious unless the infection spreads to the kidney. The phrases bladder infection, UTI, and cystitis are often used to describe the same thing. But they are not always the same. Cystitis is an inflammation of the bladder. The most common cause of cystitis is an infection. Symptoms The infection causes inflammation in the urethra and bladder. This causes many of the symptoms. Themost common symptoms of a bladder infection are: Pain or burning when urinating Having to urinate more often than usual Urgent need to urinate Only a small amount of urine comes out Blood in urine Abdominal discomfort. This is usually in the lower abdomen above the pubic bone. Cloudy urine Strong- or bad-smelling urine Unable to urinate (urinary retention) Unable to hold urine in (urinary incontinence) Fever Loss of appetite Confusion (in older adults) Causes Bladder infections are not contagious. You can't get one from someone else, from a toilet seat, or from sharing a bath. The most common cause of bladder infections is bacteria from the bowels. The bacteria get onto the skin around the opening of the urethra. From there, they can get into the urine and travel up to thebladder, causing inflammation and infection. This usually happens because of: Wiping improperly after urinating. Always wipe from front to back. Bowel incontinence Procedures such as having a catheter inserted Older age Not emptying your bladder. This can allow bacteria a chance to grow in your urine. Dehydration Constipation Sex Use of a diaphragm for control Treatment Bladder infections are diagnosed by a urine test. They are treated with antibiotics and usually clear up quickly without complications. Treatment helps prevent a more serious kidney infection. Medicines Medicines can help in the treatment of a bladder infection: Take antibiotics until they are used up, even if you feel better. It is important to finish them tomake sure the infection has cleared. You can use acetaminophen or ibuprofen for pain, fever, or discomfort, unless another medicine was prescribed. If you have chronic liver or kidney disease, talk with your healthcare provider before using these medicines. Also talk with your provider if you've ever had a stomach ulcer or gastrointestinal bleeding, or are taking blood-thinner medicines. If you are given phenazopydridine to reduce burning with urination, it will cause your urine to become a bright orange color. This can stain clothing. Care and prevention These self-care steps can help prevent future infections: Drink plenty of fluids to prevent dehydration and flush out your bladder. Do this unless you must restrict fluids for other health reasons, or your doctor told you not to. Proper cleaning after going to the bathroom is important. Wipe from front to back after using the toilet to prevent the spread of bacteria. Urinate more often. Don't try to hold urine in for a long time. Wear loose-fitting clothes and cotton underwear. Avoid tight-fitting pants. Improve your diet and prevent constipation. Eat more fresh fruit and vegetables, and fiber, and less junk and fatty foods. Avoid sex until your symptoms are gone. Avoid caffeine, alcohol, and spicy foods. These can irritate your bladder. Urinate right after intercourse to flush out your bladder. If you use control pills and have frequent bladder infections, discuss it with your doctor. Follow-up care Call your healthcare provider if all symptoms are not gone after 3 days of treatment. This is especially important if you have repeat infections. If a culture was done, you will be told if your treatment needs to be changed. If directed, you cancall to find out the results. If X-rays were done, you will be told if the results will affect your treatment. Call 911 Call 911 if any of the following occur: Trouble breathing Hard to wake up or confusion Fainting or loss of consciousness Rapid heart rate When to seek medical advice Call your healthcare provider right away if any of these occur: Fever of 100.4 F (38.0 C) or higher, or as directed by your healthcare provider Symptoms are not better by the third day of treatment Back or belly (abdominal) pain that gets worse Repeated vomiting, or unable to keep medicine down Weakness or dizziness Vaginal discharge Pain, redness, or swelling in the outer vaginal area (labia) [id number] [employer]. [address] [place] [address]. All rights reserved. This information is not intended as a substitute for professional medical care. Always follow yourhealthcare professional's instructions. Follow Up Care 09/07/2022 15:18:48 With:HECTOR ORTEZ MD Address: [address] [place] [address]- When:2-[address] [facility] 07-30-2023 Note Discharge Instructions Thank you for allowing [facility] to assist you with your healthcare needs. The following is importantdischarge information regarding your hospital visit. Diagnosis from Today's Visit Altered mental status What to Do Next Instructions from Your Care Team No qualifying data available. Post Acute Orders No qualifying data available. You Need to Schedule the Following Appointments Follow Up with HECTOR ORTEZ MD When Within 2-4 days Where: [address] [place], [place] [id number]- Allergies NKA Medications Please ask your primary doctor or pharmacist before taking any other medication not listed, including over the counter drugs, herbal medications, vitamins and or supplements as they may interact withyour home medications. What How Much When Instructions Last Dose New cephalexin (cephalexin 250 mg/ 5 mL oral liquid) 10 Milliliter by mouth Four (4) times a day Duration: 10 Days take with a probiotic Printed Prescription Unchanged alendronate (Fosamax 70 mg oral tablet) 1 tab(s) by mouth Every day Unchanged etanercept (Enbrel 25 mg subcutaneous kit) See instructions Subcutaneous 1xweek Unchanged meloxicam (meloxicam 7.5 mg/ 5 mL oral suspension) 5 Milliliter by mouth Once a day Unchanged methotrexate (methotrexate 2.5 mg oral tablet) Please take this list to your next doctor s visit. Bring all medications you take, including over the counter medications, herbals and other supplements with you to your doctor s visit. Patients and families are reminded to discard old lists and to update any records with all medication providers or retail pharmacies. Medication Leaflets cephalexin (sef a ANIYA in) Keflex What is the most important information I should know about cephalexin? You should not use this medicine if you are allergic to cephalexin or to similar antibiotics, such as Ceftin, Cefzil, Omnicef, and others. Tell your doctor if you are allergic to any drugs, especially penicillins or other antibiotics. What is cephalexin? Cephalexin is a cephalosporin (SEF a low spor in) antibiotic that is used to treat bacterial infections of the lungs, ear, skin, bones, bladder, and kidneys. Cephalexin is used to treat infections in adults and children who are at least 1 year old. Cephalexin may also be used for purposes not listed in this medication guide. What should I discuss with my healthcare provider before taking cephalexin? You should not use this medicine if you are allergic to cephalexin or any other cephalosporin antibiotic (cefdinir, cefadroxil, cefoxitin, cefprozil, ceftriaxone, cefuroxime, Omnicef, and others). Tell your doctor if you have ever had: an allergy to any drug (especially penicillin); liver or kidney disease; or intestinal problems, such as colitis. The liquid form of cephalexin may contain sugar. This may affect you if you have diabetes. Tell your doctor if you are or breast-feeding. How should I take cephalexin? Follow all directions on your prescription label and read all medication guides or instruction sheets. Use the medicine exactly as directed. Do not use cephalexin to treat any condition that has not been checked by your doctor. Measure liquid medicine carefully. Use the dosing syringe provided, or use a medicine dose-measuring device (not a kitchen spoon). Use this medicine for the full prescribed length of time, even if your symptoms quickly improve. Skipping doses can increase your risk of infection that is resistant to medication. Cephalexin will not treat a viral infection such as the flu or a common cold. Do not share cephalexin with another person, even if they have the same symptoms you have. This medicine can affect the results of certain medical tests. Tell any doctor who treats you that you are using cephalexin. Store the tablets and capsules at room temperature away from moisture, heat, and light. Store the liquid medicine in the refrigerator. Throw away any unused liquid after 14 days. What happens if I miss a dose? Take the medicine as soon as you can, but skip the missed dose if it is almost time for your next dose. Do not take two doses at one time. What happens if I overdose? Seek emergency medical attention or call the Poison Help line at . Overdose symptoms may include nausea, vomiting, stomach pain, diarrhea, and blood in your urine. What should I avoid while taking cephalexin? Antibiotic medicines can cause diarrhea, which may be a sign of a new infection. If you have diarrhea that is watery or bloody, call your doctor before using anti-diarrhea medicine. What are the possible side effects of cephalexin? Get emergency medical help if you have signs of an allergic reaction (hives, difficult breathing, swelling in your face or throat) or a severe skin reaction (fever, sore throat, burning eyes, skin pain, red or purple skin rash with blistering and peeling). Call your doctor at once if you have: severe stomach pain, diarrhea that is watery or bloody (even if it occurs months after your last dose); unusual tiredness, feeling light-headed or short of breath; easy bruising, unusual bleeding, purple or red spots under your skin; a seizure; pale skin, cold hands and feet; yellowed skin, dark colored urine; fever, weakness; or pain in your side or lower back, painful urination. Common side effects may include: diarrhea; nausea, vomiting; indigestion, stomach pain; or vaginal itching or discharge. This is not a complete list of side effects and others may occur. Call your doctor for medical advice about side effects. You may report side effects to FDA at 7-504-AKH-8509. What other drugs will affect cephalexin? Tell your doctor about all your other medicines, especially: metformin; or probenecid. This list is not complete. Other drugs may affect cephalexin, including prescription and ifrv-cll-lrqbrit medicines, vitamins, and herbal products. Not all possible drug interactions are listed here. Where can I get more information? Your pharmacist can provide more information about cephalexin. Remember, keep this and all other medicines out of the reach of children, never share your medicines with others, and use this medication only for the indication prescribed. Every effort has been made to ensure that the information provided by [employer]. ('[employer]') is accurate, up-to-date, and complete, but no guarantee is made to that effect. Drug information contained herein may be time sensitive. [employer] information has been compiled for use by healthcare practitioners and consumers in the [place] and therefore [employer] does not warrant that uses outside of the [place] are appropriate, unless specifically indicated otherwise. [employer] drug information does not endorse drugs, diagnose patients or recommend therapy. [employer] drug information isan informational resource designed to assist licensed healthcare practitioners in caring for their p atients and/or to serve consumers viewing this service as a supplement to, and not a substitute for, the expertise, skill, knowledge and judgment of healthcare practitioners. The absence of a warningfor a given drug or drug combination in no way should be construed to indicate that the drug or drug combination is safe, effective or appropriate for any given patient. [employer] does not assume any responsibility for any aspect of healthcare administered with the aid of information [employer] provides. The information contained herein is not intended to cover all possible uses, directions, precautions, warnings, drug interactions, allergic reactions, or adverse effects. If you have questions about the drugs you are taking, check with your doctor, nurse or pharmacist. Copyright 2372-8269 [employer]. Version: 10.03. Revision Date: 02/13/2020. Education Materials Bladder Infection, Female (Adult) Urine is normally doesn't have any bacteria in it. But bacteria can get into the urinary tract fromthe skin around the rectum. Or they can travel in the blood from elsewhere in the body. Once they are in your urinary tract, they can cause infection in the urethra (urethritis), the bladder (cystitis), or the kidneys (pyelonephritis). The most common place for an infection is in the bladder. This is called a bladder infection. This is one of the most common infections in women. Most bladder infections are easily treated. They are not serious unless the infection spreads to the kidney. The phrases bladder infection, UTI, and cystitis are often used to describe the same thing. But they are not always the same. Cystitis is an inflammation of the bladder. The most common cause of cystitis is an infection. Symptoms The infection causes inflammation in the urethra and bladder. This causes many of the symptoms. Themost common symptoms of a bladder infection are: Pain or burning when urinating Having to urinate more often than usual Urgent need to urinate Only a small amount of urine comes out Blood in urine Abdominal discomfort. This is usually in the lower abdomen above the pubic bone. Cloudy urine Strong- or bad-smelling urine Unable to urinate (urinary retention) Unable to hold urine in (urinary incontinence) Fever Loss of appetite Confusion (in older adults) Causes Bladder infections are not contagious. You can't get one from someone else, from a toilet seat, or from sharing a bath. The most common cause of bladder infections is bacteria from the bowels. The bacteria get onto the skin around the opening of the urethra. From there, they can get into the urine and travel up to thebladder, causing inflammation and infection. This usually happens because of: Wiping improperly after urinating. Always wipe from front to back. Bowel incontinence Procedures such as having a catheter inserted Older age Not emptying your bladder. This can allow bacteria a chance to grow in your urine. Dehydration Constipation Sex Use of a diaphragm for control Treatment Bladder infections are diagnosed by a urine test. They are treated with antibiotics and usually clear up quickly without complications. Treatment helps prevent a more serious kidney infection. Medicines Medicines can help in the treatment of a bladder infection: Take antibiotics until they are used up, even if you feel better. It is important to finish them tomake sure the infection has cleared. You can use acetaminophen or ibuprofen for pain, fever, or discomfort, unless another medicine was prescribed. If you have chronic liver or kidney disease, talk with your healthcare provider before using these medicines. Also talk with your provider if you've ever had a stomach ulcer or gastrointestinal bleeding, or are taking blood-thinner medicines. If you are given phenazopydridine to reduce burning with urination, it will cause your urine to become a bright orange color. This can stain clothing. Care and prevention These self-care steps can help prevent future infections: Drink plenty of fluids to prevent dehydration and flush out your bladder. Do this unless you must restrict fluids for other health reasons, or your doctor told you not to. Proper cleaning after going to the bathroom is important. Wipe from front to back after using the toilet to prevent the spread of bacteria. Urinate more often. Don't try to hold urine in for a long time. Wear loose-fitting clothes and cotton underwear. Avoid tight-fitting pants. Improve your diet and prevent constipation. Eat more fresh fruit and vegetables, and fiber, and less junk and fatty foods. Avoid sex until your symptoms are gone. Avoid caffeine, alcohol, and spicy foods. These can irritate your bladder. Urinate right after intercourse to flush out your bladder. If you use control pills and have frequent bladder infections, discuss it with your doctor. Follow-up care Call your healthcare provider if all symptoms are not gone after 3 days of treatment. This is especially important if you have repeat infections. If a culture was done, you will be told if your treatment needs to be changed. If directed, you cancall to find out the results. If X-rays were done, you will be told if the results will affect your treatment. Call 911 Call 911 if any of the following occur: Trouble breathing Hard to wake up or confusion Fainting or loss of consciousness Rapid heart rate When to seek medical advice Call your healthcare provider right away if any of these occur: Fever of 100.4 F (38.0 C) or higher, or as directed by your healthcare provider Symptoms are not better by the third day of treatment Back or belly (abdominal) pain that gets worse Repeated vomiting, or unable to keep medicine down Weakness or dizziness Vaginal discharge Pain, redness, or swelling in the outer vaginal area (labia) 4624-1638 [employer]. [address] [place] [address]. All rights reserved. This information is not intended as a substitute for professional medical care. Always follow yourhealthcare professional's instructions. Additional Information VACCINATE! IT SAVES LIVES! Members of the community who have not yet received the COVID-19 vaccine and would like to receive it can visit one of [facility] vaccine clinics. There are many vaccine clinic locations within the [facility]. For locations and available times, please visit www.[email or web address].[place].gov/. It is important to note that some COVID mobile vaccine clinics are held outdoors and may be canceled in rainy or stormy conditions. To learn more about pediatric vaccinations (ages 5-11), we invite you to visit the [facility] webpage. https://www.[email or web address].org/pages/[email or web address]-Rtsdv-Fpjggfigkdi-Lnssdvxvhv-Auasz-Clv stions.htmlTo learn more about the COVID-19 vaccine, we invite you to visit the CDC website for a list of frequently asked questions. https://www.cdc.gov/coronavirus/2019-ncov/vaccines/faq.html [facility] Patient Portal Access Instructions: Stay connected with your healthcare team and access your personal medical information anytime with the [facility] Patient Portal. If you would like a full copy of your medical records please contact the [facility] Medical Records Department Thursday through Thursday between 8a.m. and 4:30p.m. Please follow the directions below to access the portal: 1.Access the email account you provided upon registration to the [facility].2.Look for an invitation email from [facility].3.Open the email and access the invitation link: Accept Invitation to [facility]4.Fill in the required villanueva to create your account. Sign into www.[employer] with your username and password that you created in the above steps to stay up to date. You can then view a summary of results, a summary of your visits, and the ability to download your summaries to your computer or send the information securely to a physician. Remember that your healthcare information is confidential, so carefully consider who you will allow to register on the [facility] Patient Portal for access to your information. You can also access the [facility] Patient Portal on the [employer]acy. Simply click on Health Records under HealthData and then click on the [employer] logo. HOW TO SAFELY DISPOSE OF PRESCRIPTION MEDICATIONS Please use one of the following methods to safely dispose of your unused medications. 1.Use a drug disposal kit: the drug disposal pouch allows you to safely discard your old and unuseddrugs. Ask your nurse to give you one when you are discharged.2.Visit a local take-back location: Many local pharmacies and police departments have programs that collect old and unwanted prescriptiondrugs. Call your local pharmacy or go to http://AAMPP.SocialExpress/2C0Qy6v to find one close to you.3.Make use of household items: Use cat litter or old coffee grounds to dispose medications if other options arenot available. Mix your drugs with these household products, seal them in an airtight container andthrow it into the garbage. Call [facility]: [phone] to be sure your drugs can be disposed of in this way. Some medicines may require a different approach.4.Never flush your medications down the toilet. IF YOU HAVE BEEN PRESCRIBED AN OPIOIDS FOR PAIN If you have been prescribed an opioid (such as hydrocodone, oxycodone or morphine), it is critical to understand the possible side effects and risks of opioid pain medications. Even when taken as directed, opioids can have several side effects including: Tolerance, meaning you might need to take more of a medication for the same pain relief. Nausea, vomiting and/or constipation. Sleepiness, dizziness, dry mouth, confusion, depression or itching. Physical dependence, meaning you have withdrawal symptoms when a medication is stopped ? this can develop within a few days. KNOW YOUR RESPONSIBILITIES It is important to know exactly how much and how often to take the opioid pain medications you are prescribed. Never take opioids in higher amounts or more often than prescribed. Do not combine opioids with alcohol or other drugs that cause drowsiness, such as benzodiazepines, also known as benzos, including diazepam and alprazolam, muscle relaxants or sleep aids. Never sell or share prescription opioids. This is illegal. Store opioids in a secure place and out of reach of others (including children, family, friends and visitors). The last page(s) of this document has been signed and retained as a CHART COPY Signatures Patient Education Materials Bladder Infection, Female (Adult) Medication Leaflets cephalexin My discharge plan and instructions have been reviewed and explained to me and I,JOANN PRIETOtand my current condition and have read and understand these discharge instructions. I have received a written copy of the plan/instructions. If I have questions, I am aware that I should contact my doctor. Patient/Administrative Fellow Signature: Date/Time: Relationship to Patient: Witness Name/Signature: Date/Time: [facility] [id number] Evaluation + Plan note Diagnostic Tests Pending * Urine Culture 09/07/22 [facility] 09-24-2022 Hospital Discharge instructions Patient Education 11/02/2021 12:07:55 Urinary Tract Infection, [id number] Urinary Tract Infection A urinary tract infection (UTI) can occur any place along the urinary tract. The tract includes thekidneys, ureters, bladder, and urethra. A type of germ called bacteria often causes a UTI. UTIs areoften helped with antibiotic medicine. HOME CARE If given, take antibiotics as told by your doctor. Finish them even if you start to feel better. Drink enough fluids to keep your pee (urine) clear or pale yellow. Avoid tea, drinks with caffeine, and bubbly (carbonated) drinks. Pee often. Avoid holding your pee in for a long time. Pee before and after having sex (intercourse). Wipe from front to back after you poop (bowel movement) if you are a woman. Use each tissue only once. GET HELP RIGHT AWAY IF: You have back pain. You have lower belly (abdominal) pain. You have chills. You feel sick to your stomach (nauseous). You throw up (vomit). Your burning or discomfort with peeing does not go away. You have a fever. Your symptoms are not better in 3 days. MAKE SURE YOU: Understand these instructions. Will watch your condition. Will get help right away if you are not doing well or get worse. Document Released: 07/14/2008 Document Revised: 10/20/2012 Document Reviewed: 08/26/2012 ExitCare Patient Information 2015 [employer]. This information is not intended to replace advicegiven to you by your health care provider. Make sure you discuss any questions you have with your health care provider. Follow Up Care 11/01/2021 17:45:07 With:HECTOR ORTEZ MD Address: [address] [place] [address]- When:5 to 7 days Comments:post-hospitalization follow-up [facility] 09-24-2022 Evaluation + Plan noteExtracted from: Title:History and Physical Author:CHIKIS FUENTES APRN-POLISHER AND SANDER Date:11/02/21 1. Urinary tract infection Acute, new onset *Continue Ceftriaxone 1 gram IV daily pending urine culture results. *Patient has adequate intake this am - d/c IV fluids. *Urine culture pending. *Repeat CBC and BMP in the am. 2. CAP (community acquired pneumonia) Acute, questionable finding on chest x-ray *On Rocephin for UTI - continue. *Obtain urine for legionella and strep pneumoniae. *Check mycoplasma antibody. *Oxygen saturations stable on room air, no fever overnight. 3. Weakness or fatigue Acute, new onset, secondary to UTI *Consult placed to PT and OT to evaluate and treat. 4. Rheumatoid arthritis Chronic *Continue current home medications. 5. Tobacco use Chronic *Encouraged cessation. *Continue nicotine patch daily. DVT prophylaxis with SCDs. Code status: Full Code. Labs, diagnostic test and progress notes reviewed as noted in HPI. Plan of care discussed with patient. All questions answered. Patient verbalizes understanding and is agreeable with plan of care. This case was discussed with collaborating physician, Dr. Josue Baer. Diagnostic Tests Pending * Urine Culture 11/01/21 * Mycoplasma Antibody 11/02/21 [facility] 09-24-2022 Nurse Progress note Patient discharge instructions. IV discontinued No issues or concerns Patient has script at pharmacy. Instructed patient on the omportance to taking medication until completion. Patient expressed concern that she can not swallow pills and must have the liquid form. Contacted [employer] and new script was sent to pharmacy for diamond picker. IV discontinued and there were no issues or concerns Family on the way to diamond picker the patient Digitally Signed by Chikis Wall RN on 11/02/2021 12:[address] [facility]09-24-2022 Note Discharge Instructions Thank you for allowing [facility] to assist you with your healthcare needs. The following is importantdischarge information regarding your hospital visit. Your Care Team HECTOR ORTEZ MD Your Diagnosis Urinary tract infection CAP (community acquired pneumonia) Weakness or fatigue Rheumatoid arthritis Tobacco use What to do next Instructions From Your Doctor You were admitted with confusion and weakness likely due to urinary tract infection. We treated youwith Rocephin IV x 2 doses with improvement in your mental status and strength. Physical therapy evaluated you during your admission and felt that you are steady with your cane at home. You will be prescribed Omnicef 300 mg oral twice daily for 5 days. Please take the entire course of this medication to ensure that your infection resolves. Follow-up with Dr. Ortez in the next 1-2 weeks for post-hospitalization follow-up. Return to the ED with any new or concerning symptoms. Follow Up Appointments Follow Up with HECTOR ORTEZ MD When Within 5 to 7 days Why: post-hospitalization follow-up Where: [address] [place] [address]- The Following Activity and Diet Have Been Ordered for You Discharge Activity - Ordered -- NO activity restrictions, 11/02/21 12:12:00 EDT Discharge Diet - Ordered -- Type of Diet: Regular Diet, 11/02/21 12:12:00 EDT The Following Equipment Has Been Ordered for You No qualifying data available. The Following Treatments Have Been Ordered for You Discharge Labs No qualifying data available. Discharge Radiology No qualifying data available. Other Therapies No qualifying data available. Post Acute Orders No qualifying data available. Someone Will Contact You Regarding These Home Health Referrals No home referrals have been ordered for you. No one will call you. Allergies NKA Medications Please ask your primary doctor or pharmacist before taking any other medication not listed, including over the counter drugs, herbal medications, vitamins and or supplements as they may interact withyour home medications. What How Much When Instructions Last Dose New cefdinir (cefdinir 300 mg oral capsule) 1 cap by mouth Every 12 hours Duration: 5 Days Pickup at [facility]/pharmacy #[id number] Unchanged alendronate (Fosamax 70 mg oral tablet) 1 tab(s) by mouth Every day Unchanged etanercept (Enbrel 25 mg subcutaneous kit) See instructions Subcutaneous 1xweek Unchanged meloxicam (meloxicam 7.5 mg/ 5 mL oral suspension) 5 Milliliter by mouth Once a day Unchanged methotrexate (methotrexate 2.5 mg oral tablet) Pharmacy Information [facility]/pharmacy #[id number]: [address] [place], [place] [phone] Please take this list to your next doctor s visit. Bring all medications you take, including over the counter medications, herbals and other supplements with you to your doctor s visit. Patients and families are reminded to discard old lists and to update any records with all medication providers or retail pharmacies. Education Materials Urinary Tract Infection A urinary tract infection (UTI) can occur any place along the urinary tract. The tract includes thekidneys, ureters, bladder, and urethra. A type of germ called bacteria often causes a UTI. UTIs areoften helped with antibiotic medicine. HOME CARE If given, take antibiotics as told by your doctor. Finish them even if you start to feel better. Drink enough fluids to keep your pee (urine) clear or pale yellow. Avoid tea, drinks with caffeine, and bubbly (carbonated) drinks. Pee often. Avoid holding your pee in for a long time. Pee before and after having sex (intercourse). Wipe from front to back after you poop (bowel movement) if you are a woman. Use each tissue only once. GET HELP RIGHT AWAY IF: You have back pain. You have lower belly (abdominal) pain. You have chills. You feel sick to your stomach (nauseous). You throw up (vomit). Your burning or discomfort with peeing does not go away. You have a fever. Your symptoms are not better in 3 days. MAKE SURE YOU: Understand these instructions. Will watch your condition. Will get help right away if you are not doing well or get worse. Document Released: 07/14/2008 Document Revised: 10/20/2012 Document Reviewed: 08/26/2012 ExitCare Patient Information 2015 [employer]. This information is not intended to replace advicegiven to you by your health care provider. Make sure you discuss any questions you have with your health care provider. Additional Information VACCINATE! IT SAVES LIVES! Members of the community who have not yet received the COVID-19 vaccine and would like to receive it can visit one of [facility] vaccine clinics. There are many vaccine clinic locations within the [facility]. For locations and available times, please visit [email or web address]/. It is important to note that some COVID mobile vaccine clinics are held outdoors and may be canceled in rainy or stormy conditions. To learn more about pediatric vaccinations (ages 5-11), we invite you to visit the [facility] webpage. https://www.[facility].org/pages/4066-Iyejz-Ojaiudrkgzr-Rgmwnroryg-Cetbt-Eoy stions.htmlTo learn more about the COVID-19 vaccine, we invite you to visit the [facility] website for a list of frequently asked questions. [email or web address]/assets/Ypmbvbjj-[email or web address]-Uzcagyok/hkdxq-Lnkfeec-Ebfmoebejc _Asked-Questions.pdf [facility] Patient Portal Access Instructions: Stay connected with your healthcare team and access your personal medical information anytime with the [facility] Patient Portal.If you would like a full copy of your medical records, please contact the [facility] Medical Records Department, Thursday through Thursday between 8a.m. and 4:30p.m. Please follow the directions below to access the portal: 1.Access the email account you provided upon registration to the hospital.2.Look for an invitation email from [facility].3.Open the email and access the invitation link: Accept Invitation to [facility]4.Fill in the required villanueva to create your account. Sign into www.[employer] with your username and password that you created in the above steps to stay up to date. You can then view a summary of results, a summary of your visits, and the ability to download your summaries to your computer or send the information securely to a physician. Remember that your healthcare information is confidential, so carefully consider who you will allow to register on the [facility] Patient Portal for access to your information. You can also access the [facility] Patient Portal on the [employer]acy. Simply click on Health Records under [employer] and then click on the [employer]ito logo. HOW TO SAFELY DISPOSE OF PRESCRIPTION MEDICATIONS Please use one of the following methods to safely dispose of your unused medications. 1.Use a drug disposal kit: the drug disposal pouch allows you to safely discard your old and unuseddrugs. Ask your nurse to give you one when you are discharged.2.Visit a local take-back location: Many local pharmacies and police departments have programs that collect old and unwanted prescriptiondrugs. Call your local pharmacy or go to http://bit.SocialExpress/2W1Uu4n to find one close to you.3.Make use of household items: Use cat litter or old coffee grounds to dispose medications if other options arenot available. Mix your drugs with these household products, seal them in an airtight container andthrow it into the garbage. Call [facility]: [phone] to be sure your drugs can be disposed of in this way. Some medicines may require a different approach.4.Never flush your medications down the toilet. IF YOU HAVE BEEN PRESCRIBED AN OPIOID FOR PAIN If you have been prescribed an opioid (such as hydrocodone, oxycodone or morphine), it is critical to understand the possible side effects and risks of opioid pain medications. Even when taken as directed, opioids can have several side effects including: Tolerance, meaning you might need to take more of a medication for the same pain relief. Nausea, vomiting and/or constipation. Sleepiness, dizziness, dry mouth, confusion, depression or itching. Physical dependence, meaning you have withdrawal symptoms when a medication is stopped, can develop within a few days. KNOW YOUR RESPONSIBILITIES It is important to know exactly how much and how often to take the opioid pain medications you are prescribed. Never take opioids in higher amounts or more often than prescribed. Do not combine opioids with alcohol or other drugs that cause drowsiness, such as benzodiazepines, also known as benzos, including diazepam and alprazolam, muscle relaxants or sleep aids. Never sell or share prescription opioids. This is illegal. Store opioids in a secure place and out of reach of others (including children, family, friends and visitors). The last page of this document has been signed and retained as a CHART COPY. Signatures Patient Education Materials Urinary Tract Infection, Vmur-wt-Cxmv Medication Leaflets My discharge plan and instructions have been reviewed and explained to me and I,JOANN PRIETOtand my current condition and have read and understand these discharge instructions. I have received a written copy of the plan/instructions. If I have questions, I am aware that I should contact my doctor. Patient/Administrative Fellow Signature: Date/Time: Relationship to Patient: Witness Name/Signature: Date/Time: [facility]09-24-2022 Discharge summary Date of Service 11/02/2021 Discharge Diagnosis 1. Urinary tract infection (N39.0 - ICD-10-CM) 2. CAP (community acquired pneumonia) (J18.9 - ICD-10-CM) 3. Weakness or fatigue ([id number] - PNED) 4. Rheumatoid arthritis (M06.9 - ICD-10-CM) 5. Tobacco use (Z72.0 - ICD-10-CM) Additional Orders: Ordered: Discharge,11/02/21 12:12:00 EDT, Discharged to: Home Ordered: Discharge Activity,NO activity restrictions, 11/02/21 12:12:00 EDT Ordered: Discharge Diet,Type of Diet: Regular Diet, 11/02/21 12:12:00 EDT Ordered: cefdinir 300 mg oral capsule,Dose : 300 mg = 1 cap(s), Oral, q12h, X 5 day(s), # 10 cap(s), 0 Refill(s), 11/07/21 12:12:00 EDT, Pharmacy: [facility]/pharmacy #[id number], 162.6, cm, 11/02/21 0:29:00 EDT,Height, 56.8 Hospital Course Patient is a 81-year-old female, who follows with Dr. Hector Ortez with a past medical history significant for arthritis and rheumatoid arthritis, presents to [facility] emergency department with the chief complaint of weakness and fatigue. Patient states that she is not sure what happened yesterday but she is feeling much better today. Per the ED physician report, patient's spouse stated that patient has been weak and fatigued for several days, however, yesterday was confused. She is ordinarily alert and oriented. Patient reports some burning with urination but denies any fever, chills, cough, shortness of breath, chest pain, abdominal pain or nausea. In the emergency department, CT of the brain revealed mild volume loss and small vessel ischemic disease. Chest x-ray revealed probable mild left basilar atelectasis or evolving infiltrate in the appropriate clinical setting. White blood cell count 11.9. CBC otherwise unremarkable. BMP significant for glucose 119 and BUN 27. Patient was administered 500 cc normal saline and 1 gram Ceftriaxone IV in the ED. She was transferred to medical surgical unit for observation. We will continue NS @ 100cc/hr and 1 gram Ceftriaxone IV daily. Urine and blood cultures are pending. We will check mycoplasma antibody. Send urine to check for legionella and strep pneumoniae. Repeat CBC and BMP in the am. PLAN: 1. Urinary tract infection Acute, new onset *Patient seen this morning and was alert and oriented and requesting to go home. *Administered Ceftriaxone 1 gram IV daily x 2 doses. *Patient was administered IV fluids overnight but her intake is adequate this morning. *Urine culture pending - will notify patient if any changes to antibiotic needed. *Follow-up with PCP in 1-2 weeks for post-hospitalization follow-up. 2. CAP (community acquired pneumonia) Acute, questionable finding on chest x-ray *On Rocephin for UTI x 2 doses. *Will discharge on Omnicef and this should cover. *Obtain urine for legionella and strep pneumoniae. *Check mycoplasma antibody. *Oxygen saturations stable on room air, no fever, cough or shortness of breath. 3. Weakness or fatigue Acute, new onset, secondary to UTI *Patient evaluated by PT and felt to be steady with her cane. Allergies NKA Consults Consult to Case Management/Social Service (Case Management/Social Service Consult) (Consult to CaseManagement) - Ordered -- 11/02/21 0:19:00 EDT, Discharge Planning Consult to Occupational Therapy - Ordered -- 11/02/21 0:19:00 EDT, Once Imaging Results and Diagnostics CT Head or Brain w/o Contrast Result Date: November 01, 2021 Verified By: SLY MCKEON MD CLINICAL STATEMENT: IMPRESSION: Mild volume loss and small vessel ischemic disease. XR Chest 1 View Result Date: November 01, 2021 Verified By: PIETRO SWARTZ MD CLINICAL STATEMENT: IMPRESSION: Probable mild left basilar atelectasis or evolving infiltrate in theappropriate clinical setting. Clinical correlation advised. I have personally reviewed the images of this examination and agree with theresident's findings and interpretation. Physical Exam Vitals and Measurements T: 36.3 C (Oral) TMIN: 36.3 C (Oral) TMAX: 37.5 C (Oral) HR: 72 RR: 16 BP: 121/56 SpO2: 93% HT: 162.6 cm WT: 56.8 kg BMI: 21.48 Weight Dosing Weight: 56.8 kg (11/02/21) Dosing Weight: 56.8 kg (11/02/21) General: No acute distress. Patient is alert and appropriate. Skin: No rash. Skin is warm, dry and intact. HEENT: Head is normocephalic, atraumatic. Pupils are equal, round and reactive. Neck: Supple. No lymphadenopathy, thyromegaly. Lungs: Bilaterally clear but diminished without crepitation or wheeze. Unlabored. Heart: Heart is regular rhythm, S1, S2. No murmurs, gallops or rubs. Abdomen: Abdomen is soft, nontender. Bowels sounds present in all quadrants. Extremities: No clubbing, cyanosis, or edema. Peripheral pulses palpable. No calf tenderness. Neurological: Patient is awake and alert to person, place and time. Following simple commands, moving all extremities. Code Status Code Status - Ordered -- 11/01/21 22:11:00 EDT, Full Code, Constant Order Admission Date 11/02/2021 Discharge Date 11/02/2021 Patient Instructions You were admitted with confusion and weakness likely due to urinary tract infection. We treated youwith Rocephin IV x 2 doses with improvement in your mental status and strength. Physical therapy evaluated you during your admission and felt that you are steady with your cane at home. You will be prescribed Omnicef 300 mg oral twice daily for 5 days. Please take the entire course of this medication to ensure that your infection resolves. Follow-up with Dr. Ortez in the next 1-2 weeks for post-hospitalization follow-up. Return to the ED with any new or concerning symptoms. Medications New Prescription cefdinir (cefdinir 300 mg oral capsule)1 cap by mouth every 12 hours for 5 Days. Refills: 0. Unchanged alendronate (Fosamax 70 mg oral tablet)1 tab(s) by mouth every day. etanercept (Enbrel 25 mg subcutaneous kit)Subcutaneous 1xweek. meloxicam (meloxicam 7.5 mg/5 mL oral suspension)5 Milliliter by mouth once a day. methotrexate (methotrexate 2.5 mg oral tablet) Follow Up Follow Up with HECTOR ORTEZ MD When Within 5 to 7 days Why: post-hospitalization follow-up Where: [address] [place] [address]- Follow Up Appointments No qualifying data available. Follow Up Labs/Studies Discharge Labs No Follow-up Labs Discharge Studies No Follow-up Studies Discharge Diet Discharge Diet - Ordered -- Type of Diet: Regular Diet, 11/02/21 12:12:00 EDT Discharge Activity Discharge Activity - Ordered -- NO activity restrictions, 11/02/21 12:12:00 EDT Condition on Discharge Stable. Discharge Disposition Home. Time Spent 30 minutes. Digitally Signed by CHIKIS FUENTES on 11/02/2021 12:[address] [facility]09-24-2022 Note Date of Service 11/02/2021 Chief Complaint was weak and fatigued for 2 days History of Present Illness Patient is a 81-year-old female, who follows with Dr. Hector Ortez with a past medical history significant for arthritis and rheumatoid arthritis, presents to [facility] emergency department with the chief complaint of weakness and fatigue. Patient states that she is not sure what happened yesterday but she is feeling much better today. Per the ED physician report, patient's spouse stated that patient has been weak and fatigued for several days, however, yesterday was confused. She is ordinarily alert and oriented. Patient reports some burning with urination but denies any fever, chills, cough, shortness of breath, chest pain, abdominal pain or nausea. In the emergency department, CT of the brain revealed mild volume loss and small vessel ischemic disease. Chest x-ray revealed probable mild left basilar atelectasis or evolving infiltrate in the appropriate clinical setting. White blood cell count 11.9. CBC otherwise unremarkable. BMP significant for glucose 119 and BUN 27. Patient was administered 500 cc normal saline and 1 gram Ceftriaxone IV in the ED. She was transferred to medical surgical unit for observation. We will continue NS @ 100cc/hr and 1 gram Ceftriaxone IV daily. Urine and blood cultures are pending. We will check mycoplasma antibody. Send urine to check for legionella and strep pneumoniae. Repeat CBC and BMP in the am. Review of Systems Review of Systems: Reviewed in detail, including general health, HEENT, cardiovascular, respiratory, gastrointestinal, genitourinary, endocrine, musculoskeletal, neurologic, vascular, skin, and psychiatric. All are negative except for those listed in the History of Present Illness. Physical Exam Vitals and Measurements T: 36.3 C (Oral) TMIN: 36.3 C (Oral) TMAX: 37.5 C (Oral) HR: 72 RR: 16 BP: 121/56 SpO2: 93% HT: 162.6 cm WT: 56.8 kg BMI: 21.48 Weight Dosing Weight: 56.8 kg (11/02/21) Dosing Weight: 56.8 kg (11/02/21) General: No acute distress. Patient is alert and appropriate. Skin: No rash. Skin is warm, dry and intact. HEENT: Head is normocephalic, atraumatic. Pupils are equal, round and reactive. Neck: Supple. No lymphadenopathy, thyromegaly. Lungs: Bilaterally clear but diminished without crepitation or wheeze. Unlabored. Heart: Heart is regular rhythm, S1, S2. No murmurs, gallops or rubs. Abdomen: Abdomen is soft, nontender. Bowels sounds present in all quadrants. Extremities: No clubbing, cyanosis, or edema. Peripheral pulses palpable. No calf tenderness. Neurological: Patient is awake and alert to person, place and time. Following simple commands, moving all extremities. Lab Results 11/02 06:21 WBC: 8.7 Hgb: 12.8 Hct: 36.3 L Platelet: 171 Neutrophil %: 60.6 Glucose Level: 100 Sodium Level: 136 Potassium Level: 4.2 BUN: 20 H Creatinine Lvl (s): 0.91 11/01 18:18 WBC: 11.9 H Hgb: 14.4 Hct: 41.3 Platelet: 185 Neutrophil %: 67.3 Glucose Level: 119 H Sodium Level: 139 Potassium Level: 4.2 BUN: 27 H Creatinine Lvl (s): 0.98 Imaging Results and Diagnostics CT Head or Brain w/o Contrast Result Date: November 01, 2021 Verified By: SLY MCKEON MD CLINICAL STATEMENT: IMPRESSION: Mild volume loss and small vessel ischemic disease. XR Chest 1 View Result Date: November 01, 2021 Verified By: PIETRO SWARTZ MD CLINICAL STATEMENT: IMPRESSION: Probable mild left basilar atelectasis or evolving infiltrate in the appropriate clinical setting. Clinical correlation advised. I have personally reviewed the images of this examination and agree with the resident's findings and interpretation. Assessment/Plan 1. Urinary tract infection Acute, new onset *Continue Ceftriaxone 1 gram IV daily pending urine culture results. *Patient has adequate intake this am - d/c IV fluids. *Urine culture pending. *Repeat CBC and BMP in the am. 2. CAP (community acquired pneumonia) Acute, questionable finding on chest x-ray *On Rocephin for UTI - continue. *Obtain urine for legionella and strep pneumoniae. *Check mycoplasma antibody. *Oxygen saturations stable on room air, no fever overnight. 3. Weakness or fatigue Acute, new onset, secondary to UTI *Consult placed to PT and OT to evaluate and treat. 4. Rheumatoid arthritis Chronic *Continue current home medications. 5. Tobacco use Chronic *Encouraged cessation. *Continue nicotine patch daily. DVT prophylaxis with SCDs. Code status: Full Code. Labs, diagnostic test and progress notes reviewed as noted in HPI. Plan of care discussed with patient. All questions answered. Patient verbalizes understanding and is agreeable with plan of care. This case was discussed with collaborating physician, Dr. Josue Baer. Problem List/Past Medical History Ongoing Arthritis Rheumatoid arthritis Historical No qualifying data Procedure/Surgical History Cholecystectomy Medications Home Medications (4) Active Enbrel 25 mg subcutaneous kit See Instructions Fosamax 70 mg oral tablet 70 mg = 1 tab(s), Oral, Daily meloxicam 7.5 mg/5 mL oral suspension 7.5 mg = 5 mL, Oral, qDay methotrexate 2.5 mg oral tablet Allergies NKA Social History Smoking Status - 07/29/2014 Current every day smoker Alcohol Use: Never., 12/03/2020 Home/Environment Domestic Concerns: None. Living situation: Home/Independent. Lives In: Single level home. Current Home Treatments None. Professional Skilled Services or Special Community Resources None., 11/02/2021 Nutrition/Health Type of diet: Regular. Appetite Fair. Eating Difficulties None. Enteral Feedings No. TPN Feedings No. Skin Breakdown No., 12/03/2020 Substance Abuse Use: Never., 12/03/2020 Tobacco Nicotine Use: 10 or more cigarettes (1/2 pack or more)/day in last 30 days. Type: Cigarettes., 12/03/2020 Family History Cancer: Mother and Father. Immunizations pneumococcal 13-valent conjugate vaccine: 0 unknown unit (07/05/15) pneumococcal 23-valent vaccine(Pneumovax: 0 unknown unit (01/03/14) tetanus-diphtheria toxoids: 0.5 unknown unit (09/02/16) Code Status Code Status - Ordered -- 11/01/21 22:11:00 EDT, Full Code, Constant Order Digitally Signed by CHIKIS FUENTES on 11/02/2021 12:[address] [facility]09-23-2022 Note ORIGINAL EXAMINATION: ONE XRAY VIEW OF THE CHEST11/01/2021 6:56 pm COMPARISON: 12/03/2020 HISTORY: ORDERING SYSTEM PROVIDED HISTORY: Reason for Exam: Altered mental status FINDINGS: The cardiomediastinal silhouette is unremarkable. Multiple left lung calcified granulomas are unchanged from before. Mild streaky and hazy opacity of the left lung base is noted. Otherwise, no focal pulmonary consolidation, pneumothorax, or large pleural effusion visualized. No acute osseous abnormalities identified. The spine is degenerative. There is calcification of the thoracic aorta. IMPRESSION: Probable mild left basilar atelectasis or evolving infiltrate in the appropriate clinical setting. Clinical correlation advised. I have personally reviewed the images of this examination and agree with the resident's findings and interpretation. Interpreted by: Pietro Swartz Preliminary Report By: Steve Spence Electronically signed By Pietro Swartz Dictated Date: 11/01/2021 7:21:36 PM Prelim Date: 11/01/2021 7:25:34 PM Sign Date: 11/01/2021 7:35:59 PM Ordering Provider: STEVE MOSLEY [facility]09-23-2022 Note ORIGINAL HISTORY: Altered mental status, confusion COMPARISON: 03 December 2020 TECHNIQUE: Routine non-contrast head CT with sagittal and coronal reconstructions This exam was performed according to our departmental dose optimization program, and includes the following measures where applicable: automated exposure control, adjustment of the mAs and/or kVp according to patient size and/or exam, and an iterative reconstruction algorithm. FINDINGS: The ventricles and sulci are mildly enlarged. There are no abnormal intra or extra-axial fluid collections. There is mild irregular decreased attenuation in the cerebral white matter. Jimenez-white matter differentiation is maintained. The calvaria and the bones of the base of the skull are intact. IMPRESSION: Mild volume loss and small vessel ischemic disease. Interpreted by: Sly Mckeon MD Preliminary Report By: Sly Mckeon MD Electronically signed By Sly Mckeon MD Dictated Date: 11/01/2021 7:02:21 PM Prelim Date: 11/01/2021 7:03:38 PM Sign Date: 11/01/2021 7:03:38 PM Ordering Provider: STEVE [place] [id number] Note ORIGINAL HISTORY: Altered mental status, confusion COMPARISON: 03 December 2020 TECHNIQUE: Routine non-contrast head CT with sagittal and coronal reconstructions This exam was performed according to our departmental dose optimization program, and includes the following measures where applicable: automated exposure control, adjustment of the mAs and/or kVp according to patient size and/or exam, and an iterative reconstruction algorithm. FINDINGS: The ventricles and sulci are mildly enlarged. There are no abnormal intra or extra-axial fluid collections. There is mild irregular decreased attenuation in the cerebral white matter. Jimenez-white matter differentiation is maintained. The calvaria and the bones of the base of the skull are intact. IMPRESSION: Mild volume loss and small vessel ischemic disease. Interpreted by: Sly Mckeon MD Preliminary Report By: Sly Mckeon MD Electronically signed By Sly Mckeon MD Dictated Date: 11/01/2021 7:02:21 PM Prelim Date: 11/01/2021 7:03:38 PM Sign Date: 11/01/2021 7:03:38 PM Ordering Provider: [place] [id number] Note ORIGINAL EXAMINATION: ONE XRAY VIEW OF THE CHEST11/01/2021 6:56 pm COMPARISON: 12/03/2020 HISTORY: ORDERING SYSTEM PROVIDED HISTORY: Reason for Exam: Altered mental status FINDINGS: The cardiomediastinal silhouette is unremarkable. Multiple left lung calcified granulomas are unchanged from before. Mild streaky and hazy opacity of the left lung base is noted. Otherwise, no focal pulmonary consolidation, pneumothorax, or large pleural effusion visualized. No acute osseous abnormalities identified. The spine is degenerative. There is calcification of the thoracic aorta. IMPRESSION: Probable mild left basilar atelectasis or evolving infiltrate in the appropriate clinical setting. Clinical correlation advised. I have personally reviewed the images of this examination and agree with the resident's findings and interpretation. Interpreted by: Pietro Swartz Preliminary Report By: Steve Spence Electronically signed By Pietro Swartz Dictated Date: 11/01/2021 7:21:36 PM Prelim Date: 11/01/2021 7:25:34 PM Sign Date: 11/01/2021 7:35:59 PM Ordering Provider: [facility]09-23-2022 SARS-CoV-2 (COVID-19) RNA KIRBY+probe Ql (Nph)Negative *NA* (11/01/21 6:18 PM)AO Auto Urine [id number] Hospital Discharge instructions Patient Education 12/06/2020 12:03:18 COVID-19: How to Protect Yourself and Others - [facility] COVID-19: How to Protect Yourself and Others Know how it spreads There is currently no vaccine to prevent coronavirus disease 2019 (COVID-19). The best way to prevent illness is to avoid being exposed to this virus. The virus is thought to spread mainly from ohnlfn-dz-mqjkoj. ?Between people who are in close contact with one another (within about 6 feet). ?Through respiratory droplets produced when an infected person coughs, sneezes or talks. ?These droplets can land in the mouths or noses of people who are nearby or possibly be inhaled into the lungs. ?Some recent studies have suggested that COVID-19 may be spread by people who are not showing symptoms. Everyone should Clean your hands often Wash your hands often with soap and water for at least 20 seconds especially after you have been vernon public place, or after blowing your nose, coughing, or sneezing. If soap and water are not readily available, use a hand engine cowling installer that contains at least 60% alcohol. Cover all surfaces of your hands and rub them together until they feel dry. Avoid touching your eyes, nose, and mouth with unwashed hands. Avoid close contact Limit contact with others as much as possible. Avoid close contact with people who are sick. Put distance between yourself and other people. ?Remember that some people without symptoms may be able to spread virus. ?This is especially important for people who are at higher risk of getting very sick.www.cdc.gov/cor onavirus/2019-ncov/lpgm-lwljx-zzzmmdiuxpd/jyhmsl-cg-ehakjv-risk.html Cover your mouth and nose with a cloth face cover when around others You could spread COVID-19 to others even if you do not feel sick. Everyone should wear a cloth face covering in public settings and when around people not living in their household, especially when social distancing is difficult to maintain. ?Cloth face coverings should not be placed on young children under age 2, anyone who has trouble breathing, or is unconscious, incapacitated or otherwise unable to remove the mask without assistance. The cloth face cover is meant to protect other people in case you are infected. Do NOT use a facemask meant for a healthcare worker. Continue to keep about 6 feet between yourself and others. The cloth face cover is not a substitutefor social distancing. Cover coughs and sneezes Always cover your mouth and nose with a tissue when you cough or sneeze or use the inside of your elbow. Throw used tissues in the trash. Immediately wash your hands with soap and water for at least 20 seconds. If soap and water are not readily available, clean your hands with a hand engine cowling installer that contains at least 60% alcohol. Clean and disinfect Clean AND disinfect frequently touched surfaces daily. This includes tables, doorknobs, light switches, countertops, handles, desks, phones, keyboards, toilets, faucets, and sinks. www.cdc.gov/coronav irus/2019-ncov/xlgwohn-tyzkekc-rnui/dqdxnplijpzh-cxrg-cyxj.html If surfaces are dirty, clean them: Use detergent or soap and water prior to disinfection. Then, use a household disinfectant. You can see a list of EPA-registered household disinfectants here. cdc.gov/coronavirus 08/09/2019 This information is not intended to replace advice given to you by your health care provider. Make sure you discuss any questions you have with your health care provider. Document Released: 05/24/2019 Document Revised: 08/18/2019 Document Reviewed: 08/18/2019 [employer] Patient Education 2019 [employer] 12/06/2020 12:03:17 COVID-19 Frequently Asked Questions COVID-19 Frequently Asked Questions COVID-19 (coronavirus disease) is an infection that is caused by a large family of viruses. Some viruses cause illness in people and others cause illness in animals like camels, cats, and bats. In some cases, the viruses that cause illness in animals can spread to humans. Where did the coronavirus come from? In January 2019, [place] told the World Health Organization (WHO) of several cases of lung disease (human respiratory illness). These cases were linked to an open seafood and livestock market in the city of [facility]. The link to the seafood and livestock market suggests that the virus may have spread from animals to humans. However, since that first outbreak in January, the virus has also been shownto spread from person to person. What is the name of the disease and the virus? Disease name Early on, this disease was called novel coronavirus. This is because scientists determined that thedisease was caused by a new (novel) respiratory virus. The World Health Organization (WHO) has now named the disease COVID-19, or coronavirus disease. Virus name The virus that causes the disease is called severe acute respiratory syndrome coronavirus 2 (SARS-CoV-2). More information on disease and virus naming World Health Organization (WHO): www.who.int/emergencies/diseases/tabgo-qrjcqclkjzs-3015/technical-g uidance/ugzzev-cgi-vprooydrgep-disease-(covid-2019)-udm-iqp-qghih-xdsl-rbtsnk-hk Who is at risk for complications from coronavirus disease? Some people may be at higher risk for complications from coronavirus disease. This includes older adults and people who have chronic diseases, such as heart disease, diabetes, and lung disease. If you are at higher risk for complications, take these extra precautions: Avoid close contact with people who are sick or have a fever or cough. Stay at least 3 6 ft (1 2 m)away from them, if possible. Wash your hands often with soap and water for at least 20 seconds. Avoid touching your face, mouth, nose, or eyes. Keep supplies on hand at home, such as food, medicine, and cleaning supplies. Stay home as much as possible. Avoid social gatherings and travel. How does coronavirus disease spread? The virus that causes coronavirus disease spreads easily from person to person (is contagious). There are also cases of community-spread disease. This means the disease has spread to: People who have no known contact with other infected people. People who have not traveled to areas where there are known cases. It appears to spread from one person to another through droplets from coughing or sneezing. Can I get the virus from touching surfaces or objects? There is still a lot that we do not know about the virus that causes coronavirus disease. Scientists are basing a lot of information on what they know about similar viruses, such as: Viruses cannot generally survive on surfaces for long. They need a human body (host) to survive. It is more likely that the virus is spread by close contact with people who are sick (direct contact), such as through: ?Shaking hands or hugging. ?Breathing in respiratory droplets that travel through the air. This can happen when an infected person coughs or sneezes on or near other people. It is less likely that the virus is spread when a person touches a surface or object that has the virus on it (indirect contact). The virus may be able to enter the body if the person touches a surface or object and then touches his or her face, eyes, nose, or mouth. Can a person spread the virus without having symptoms of the disease? It may be possible for the virus to spread before a person has symptoms of the disease, but this ismost likely not the main way the virus is spreading. It is more likely for the virus to spread by being in close contact with people who are sick and breathing in the respiratory droplets of a sick person's cough or sneeze. What are the symptoms of coronavirus disease? Symptoms vary from person to person and can range from mild to severe. Symptoms may include: Fever. Cough. Tiredness, weakness, or fatigue. Fast breathing or feeling short of breath. These symptoms can appear anywhere from 2 to 14 days after you have been exposed to the virus. If you develop symptoms, call your health care provider. People with severe symptoms may need hospital care. If I am exposed to the virus, how long does it take before symptoms start? Symptoms of coronavirus disease may appear anywhere from 2 to 14 days after a person has been exposed to the virus. If you develop symptoms, call your health care provider. Should I be tested for this virus? Your health care provider will decide whether to test you based on your symptoms, history of exposure, and your risk factors. How does a health care provider test for this virus? Health care providers will collect samples to send for testing. Samples may include: Taking a swab of fluid from the nose. Taking fluid from the lungs by having you cough up mucus (sputum) into a sterile cup. Taking a blood sample. Taking a stool or urine sample. Is there a treatment or vaccine for this virus? Currently, there is no vaccine to prevent coronavirus disease. Also, there are no medicines like antibiotics or antivirals to treat the virus. A person who becomes sick is given supportive care, which means rest and fluids. A person may also relieve his or her symptoms by using nrrq-jru-lpoqrvj medicines that treat sneezing, coughing, and runny nose. These are the same medicines that a person takes for the common cold. If you develop symptoms, call your health care provider. People with severe symptoms may need hospital care. What can I do to protect myself and my family from this virus? You can protect yourself and your family by taking the same actions that you would take to prevent the spread of other viruses. Take the following actions: Wash your hands often with soap and water for at least 20 seconds. If soap and water are not available, use alcohol-based hand engine cowling installer. Avoid touching your face, mouth, nose, or eyes. Cough or sneeze into a tissue, sleeve, or elbow. Do not cough or sneeze into your hand or the air. ?If you cough or sneeze into a tissue, throw it away immediately and wash your hands. Disinfect objects and surfaces that you frequently touch every day. Avoid close contact with people who are sick or have a fever or cough. Stay at least 3 6 ft (1 2 m)away from them, if possible. Stay home if you are sick, except to get medical care. Call your health care provider before you get medical care. Make sure your vaccines are up to date. Ask your health care provider what vaccines you need. What should I do if I need to travel? Follow travel recommendations from your local health authority, the CDC, and WHO. Travel information and advice Centers for Disease Control and Prevention (CDC): www.cdc.gov/coronavirus/2019-ncov/travelers/index.html World Health Organization (WHO): www.who.int/emergencies/diseases/rrrwr-dkjeiofqmlm-6941/travel-advice Know the risks and take action to protect your health You are at higher risk of getting coronavirus disease if you are traveling to areas with an outbreak or if you are exposed to travelers from areas with an outbreak. Wash your hands often and practice good hygiene to lower the risk of catching or spreading the virus. What should I do if I am sick? General instructions to stop the spread of infection Wash your hands often with soap and water for at least 20 seconds. If soap and water are not available, use alcohol-based hand engine cowling installer. Cough or sneeze into a tissue, sleeve, or elbow. Do not cough or sneeze into your hand or the air. If you cough or sneeze into a tissue, throw it away immediately and wash your hands. Stay home unless you must get medical care. Call your health care provider or local health authority before you get medical care. Avoid public areas. Do not take public transportation, if possible. If you can, wear a mask if you must go out of the house or if you are in close contact with someonewho is not sick. Keep your home clean Disinfect objects and surfaces that are frequently touched every day. This may include: ?Counters and tables. ?Doorknobs and light switches. ?Sinks and faucets. ?Electronics such as phones, remote controls, keyboards, computers, and tablets. Wash dishes in hot, soapy water or use a medical attendant. Air-dry your dishes. Wash laundry in hot water. Prevent infecting other household members Let healthy household members care for children and pets, if possible. If you have to care for children or pets, wash your hands often and wear a mask. Sleep in a different bedroom or bed, if possible. Do not share personal items, such as razors, toothbrushes, deodorant, whittington, brushes, towels, and washcloths. Where to find more information Centers for Disease Control and Prevention (CDC) Information and news updates: www.cdc.gov/coronavirus/2019-ncov World Health Organization (WHO) Information and news updates: www.who.int/emergencies/diseases/azuzg-adhxypnydfh-4236 Coronavirus health topic: www.who.int/health-topics/coronavirus Questions and answers on COVID-19: www.who.int/news-room/q-a-detail/n-y-vfavfgojujsmk Global tracker: [employer]oline[employer].BJ100.com [place] [employer] (AAP) Information for families: www.healthychildren.org/[place]/health-issues/conditions/chest-lungs/Pages /2536-Enjyq-Iboaxcebwln.aspx The coronavirus situation is changing rapidly. Check your local health authority website or the [facility] WHO websites for updates and news. When should I contact a health care provider? Contact your health care provider if you have symptoms of an infection, such as fever or cough, andyou: ?Have been near anyone who is known to have coronavirus disease. ?Have come into contact with a person who is suspected to have coronavirus disease. ?Have traveled outside of the country. When should I get emergency medical care? Get help right away by calling your local emergency services (911 in the [place] if you have: ?Trouble breathing. ?Pain or pressure in your chest. ?Confusion. ?Blue-tinged lips and fingernails. ?Difficulty waking from sleep. ?Symptoms that get worse. Let the emergency medical personnel know if you think you have coronavirus disease. Summary A new respiratory virus is spreading from person to person and causing COVID-19 (coronavirus disease). The virus that causes COVID-19 appears to spread easily. It spreads from one person to another through droplets from coughing or sneezing. Older adults and those with chronic diseases are at higher risk of disease. If you are at higher risk for complications, take extra precautions. There is currently no vaccine to prevent coronavirus disease. There are no medicines, such as antibiotics or antivirals, to treat the virus. You can protect yourself and your family by washing your hands often, avoiding touching your face, and covering your coughs and sneezes. This information is not intended to replace advice given to you by your health care provider. Make sure you discuss any questions you have with your health care provider. Document Released: 05/24/2019 Document Revised: 05/24/2019 Document Reviewed: 05/24/2019 [employer] Patient Education 2019 [employer]. 12/06/2020 12:03:16 COVID-19 COVID-19 COVID-19 is a respiratory infection that is caused by a virus called severe acute respiratory syndrome coronavirus 2 (SARS-CoV-2). The disease is also known as coronavirus disease or novel coronavirus. In some people, the virus may not cause any symptoms. In others, it may cause a serious infection. The infection can get worse quickly and can lead to complications, such as: Pneumonia, or infection of the lungs. Acute respiratory distress syndrome or ARDS. This is fluid build-up in the lungs. Acute respiratory failure. This is a condition in which there is not enough oxygen passing from thelungs to the body. Sepsis or septic shock. This is a serious bodily reaction to an infection. Blood clotting problems. Secondary infections due to bacteria or fungus. The virus that causes COVID-19 is contagious. This means that it can spread from person to person through droplets from coughs and sneezes (respiratory secretions). What are the causes? This illness is caused by a virus. You may catch the virus by: Breathing in droplets from an infected person's cough or sneeze. Touching something, like a table or a doorknob, that was exposed to the virus (contaminated) and then touching your mouth, nose, or eyes. What increases the risk? Risk for infection You are more likely to be infected with this virus if you: Live in or travel to an area with a COVID-19 outbreak. Come in contact with a sick person who recently traveled to an area with a COVID-19 outbreak. Provide care for or live with a person who is infected with COVID-19. Risk for serious illness You are more likely to become seriously ill from the virus if you: Are 65 years of age or older. Have a long-term disease that lowers your body's ability to fight infection (immunocompromised). Live in a shelter or long-term care facility. Have a long-term (chronic) disease such as: ?Chronic lung disease, including chronic obstructive pulmonary disease or asthma ?Heart disease. ?Diabetes. ?Chronic kidney disease. ?Liver disease. Are obese. What are the signs or symptoms? Symptoms of this condition can range from mild to severe. Symptoms may appear any time from 2 to 14days after being exposed to the virus. They include: A fever. A cough. Difficulty breathing. Chills. Muscle pains. A sore throat. Loss of taste or smell. Some people may also have stomach problems, such as nausea, vomiting, or diarrhea. Other people may not have any symptoms of COVID-19. How is this diagnosed? This condition may be diagnosed based on: Your signs and symptoms, especially if: ?You live in an area with a COVID-19 outbreak. ?You recently traveled to or from an area where the virus is common. ?You provide care for or live with a person who was diagnosed with COVID-19. A physical exam. Lab tests, which may include: ?A nasal swab to take a sample of fluid from your nose. ?A throat swab to take a sample of fluid from your throat. ?A sample of mucus from your lungs (sputum). ?Blood tests. Imaging tests, which may include, X-rays, CT scan, or ultrasound. How is this treated? At present, there is no medicine to treat COVID-19. Medicines that treat other diseases are being used on a trial basis to see if they are effective against COVID-19. Your health care provider will talk with you about ways to treat your symptoms. For most people, the infection is mild and can be managed at home with rest, fluids, and uluf-cop-lqjcqos medicines. Treatment for a serious infection usually takes places in a hospital intensive care unit (ICU). It may include one or more of the following treatments. These treatments are given until your symptoms improve. Receiving fluids and medicines through an IV. Supplemental oxygen. Extra oxygen is given through a tube in the nose, a face mask, or a mcgee. Positioning you to lie on your stomach (prone position). This makes it easier for oxygen to get into the lungs. Continuous positive airway pressure (CPAP) or bi-level positive airway pressure (BPAP) machine. This treatment uses mild air pressure to keep the airways open. A tube that is connected to a motor delivers oxygen to the body. Ventilator. This treatment moves air into and out of the lungs by using a tube that is placed in your windpipe. Tracheostomy. This is a procedure to create a hole in the neck so that a breathing tube can be inserted. Extracorporeal membrane oxygenation (ECMO). This procedure gives the lungs a chance to recover by taking over the functions of the heart and lungs. It supplies oxygen to the body and removes carbon dioxide. Follow these instructions at home: Lifestyle If you are sick, stay home except to get medical care. Your health care provider will tell you how long to stay home. Call your health care provider before you go for medical care. Rest at home as told by your health care provider. Do not use any products that contain nicotine or tobacco, such as cigarettes, e- cigarettes, and chewing tobacco. If you need help quitting, ask your health care provider. Return to your normal activities as told by your health care provider. Ask your health care provider what activities are safe for you. General instructions Take tbpq-zej-pptywxg and prescription medicines only as told by your health care provider. Drink enough fluid to keep your urine pale yellow. Keep all follow-up visits as told by your health care provider. This is important. How is this prevented? There is no vaccine to help prevent COVID-19 infection. However, there are steps you can take to protect yourself and others from this virus. To protect yourself: Do not travel to areas where COVID-19 is a risk. The areas where COVID-19 is reported change often.To identify high-risk areas and travel restrictions, check the CDC travel website: wwwnc.cdc.gov/travel/notices If you live in, or must travel to, an area where COVID-19 is a risk, take precautions to avoid infection. ?Stay away from people who are sick. ?Wash your hands often with soap and water for 20 seconds. If soap and water are not available, usean alcohol-based hand engine cowling installer. ?Avoid touching your mouth, face, eyes, or nose. ?Avoid going out in public, follow guidance from your state and local health authorities. ?If you must go out in public, wear a cloth face covering or face mask. ?Disinfect objects and surfaces that are frequently touched every day. This may include: ?Counters and tables. ?Doorknobs and light switches. ?Sinks and faucets. ?Electronics, such as phones, remote controls, keyboards, computers, and tablets. To protect others: If you have symptoms of COVID-19, take steps to prevent the virus from spreading to others. If you think you have a COVID-19 infection, contact your health care provider right away. Tell yourhealth care team that you think you may have a COVID-19 infection. Stay home. Leave your house only to seek medical care. Do not use public transport. Do not travel while you are sick. Wash your hands often with soap and water for 20 seconds. If soap and water are not available, use alcohol-based hand engine cowling installer. Stay away from other members of your household. Let healthy household members care for children andpets, if possible. If you have to care for children or pets, wash your hands often and wear a mask.If possible, stay in your own room, separate from others. Use a different bathroom. Make sure that all people in your household wash their hands well and often. Cough or sneeze into a tissue or your sleeve or elbow. Do not cough or sneeze into your hand or into the air. Wear a cloth face covering or face mask. Where to find more information Centers for Disease Control and Prevention: www.cdc.gov/coronavirus/2019-ncov/index.html World Health Organization: www.who.int/health-topics/coronavirus Contact a health care provider if: You live in or have traveled to an area where COVID-19 is a risk and you have symptoms of the infection. You have had contact with someone who has COVID-19 and you have symptoms of the infection. Get help right away if: You have trouble breathing. You have pain or pressure in your chest. You have confusion. You have bluish lips and fingernails. You have difficulty waking from sleep. You have symptoms that get worse. These symptoms may represent a serious problem that is an emergency. Do not wait to see if the symptoms will go away. Get medical help right away. Call your local emergency services (911 in the [place] Do not drive yourself to the hospital. Let the emergency medical personnel know if you think you have COVID-19. Summary COVID-19 is a respiratory infection that is caused by a virus. It is also known as coronavirus disease or novel coronavirus. It can cause serious infections, such as pneumonia, acute respiratory distress syndrome, acute respiratory failure, or sepsis. The virus that causes COVID-19 is contagious. This means that it can spread from person to person through droplets from coughs and sneezes. You are more likely to develop a serious illness if you are 65 years of age or older, have a weak immunity, live in a shelter, or have chronic disease. There is no medicine to treat COVID-19. Your health care provider will talk with you about ways to treat your symptoms. Take steps to protect yourself and others from infection. Wash your hands often and disinfect objects and surfaces that are frequently touched every day. Stay away from people who are sick and wear amask if you are sick. This information is not intended to replace advice given to you by your health care provider. Make sure you discuss any questions you have with your health care provider. Document Released: 03/03/2019 Document Revised: 06/23/2019 Document Reviewed: 03/03/2019 [employer] Patient Education 2019 [employer]. 12/06/2020 12:03:05 Altered Mental Status Altered Mental Status Altered mental status most often refers to an abnormal change in your responsiveness and awareness.It can affect your speech, thought, mobility, memory, attention span, or alertness. It can range from slight confusion to complete unresponsiveness (coma). Altered mental status can be a sign of a ser ious underlying medical condition. Rapid evaluation and medical treatment is necessary for patientshaving an altered mental status. CAUSES Low blood sugar (hypoglycemia) or diabetes. Severe loss of body fluids (dehydration) or a body salt (electrolyte) imbalance. A stroke or other neurologic problem, such as dementia or delirium. A head injury or tumor. A drug or alcohol overdose. Exposure to toxins or poisons. Depression, anxiety, and stress. A low oxygen level (hypoxia). An infection. Blood loss. Twitching or shaking (seizure). Heart problems, such as heart attack or heart rhythm problems (arrhythmias). A body temperature that is too low or too high (hypothermia or hyperthermia). DIAGNOSIS A diagnosis is based on your history, symptoms, physical and neurologic examinations, and diagnostic tests. Diagnostic tests may include: Measurement of your blood pressure, pulse, breathing, and oxygen levels (vital signs). Blood tests. Urine tests. X-ray exams. A computerized magnetic scan (magnetic resonance imaging, MRI). A computerized X-ray scan (computed tomography, CT scan). TREATMENT Treatment will depend on the cause. Treatment may include: Management of an underlying medical or mental health condition. Critical care or support in the hospital. HOME CARE INSTRUCTIONS Only take ahxc-esj-rkdjvtu or prescription medicines for pain, discomfort, or fever as directed by your caregiver. Manage underlying conditions as directed by your caregiver. Eat a healthy, well-balanced diet to maintain strength. Join a support group or prevention program to cope with the condition or trauma that caused the altered mental status. Ask your caregiver to help choose a program that works for you. Follow up with your caregiver for further examination, therapy, or testing as directed. SEEK MEDICAL CARE IF: You feel unwell or have chills. You or your family notice a change in your behavior or your alertness. You have trouble following your caregiver's treatment plan. You have questions or concerns. SEEK IMMEDIATE MEDICAL CARE IF: You have a rapid heartbeat or have chest pain. You have difficulty breathing. You have a fever. You have a headache with a stiff neck. You cough up blood. You have blood in your urine or stool. You have severe agitation or confusion. MAKE SURE YOU: Understand these instructions. Will watch your condition. Will get help right away if you are not doing well or get worse. Document Released: 07/16/2010 Document Revised: 04/19/2012 Document Reviewed: 07/16/2010 [employer] Patient Information 2015 [employer]. This information is not intended to replace advicegiven to you by your health care provider. Make sure you discuss any questions you have with your health care provider. Follow Up Care 12/03/2020 17:46:10 With:HECTOR ORTEZ MD Address: [address] [place] [phone]- When:12/27/2020 10:20:00 Comments:This is your post-hospital follow-up appointment. [facility] 10-26-2021 Evaluation + Plan noteExtracted from: Title:History and Physical Author:MIKE MARTIN APRN-YOLANDA Date:12/04/20 1. Altered mental status 2. COVID-19 3. Generalized weakness 4. Leukopenia 5. Rheumatoid arthritis 6. Osteoporosis 7. Tobacco use Patient presents to the hospital with complaints of altered mental status and generalized weakness. CBC showed a WBC of 2.9 hemoglobin 16.4, BMP was unremarkable. UA was not concerning for infection. Lactic negative, troponin negative. Patient incidentally tested positive for COVID-19 on 12/03/2020, she is unvaccinated. Chest x-ray read no acute radiographic findings, CT of head showed no visible acute intracranial abnormality. Patient was initially febrile with a temperature of 38.3, tachypneic with a respiratory rate of 28. Patient has maintained adequate saturations on room air. The patient's confusion and generalized weakness likely related to Covid diagnosis. Will administer REGEN-COV antibodies given the patient is not hypoxic. This was thoroughly discussed with patient's and daughter, as well as patient, who were all agreeable. Reviewed COVID labs, D-dimer 348, CRP <0.2 on . Encouraged use of IS. Will consult PT/OT for further home going recommendations. Leukopenia likely secondary to above, continue to monitor CBC. History of rheumatoid arthritis on Enbrel and osteoporosis. 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 Tobacco use, patient states smokes a pack and a half a day. Will order nicotine patch. Cessation advised. DVT prophylaxis: Subcu Lovenox daily End of life discussion at bedside with patient. In the event of a cardiopulmonary arrest he would like us to proceed with all heroic measures including, but not limited to CPR, defibrillation, and mechanical ventilation (FULL CODE). Plan of care discussed with patient and patient's , Soheila and daughter, Judah. Discussed administering REGEN-COV antibodies to patient, both and daughter were agreeable to this. Discussed with family, awaiting PT/OT recommendations. Anticipate discharge home this afternoon/evening. Patient, and daughter verbalized understanding and were agreeable to plan of care. Discussed with my collaborating physician, Dr. Davin Chan. This dictation was performed using voice recognition software and may include grammatical and/or spelling errors. Orders: Consult to Occupational Therapy Consult to Physical Therapy Addendum by DC MARTIN on December 04, 2020 14:37:46 EDT PT/OT worked with patient this afternoon with recommendations of residential facility at this point. Patient received REGEN-COV without complications. Patient's oxygen did drop to 88% on room air this afternoon, she was placed on 2L nasal cannula. Will start IV remdesivir and dexamethasone. Continue to wean oxygen as tolerated to keep saturations >92%. Patient unable to be discharged home today. Updated patient's , and daughter in depth, all questions answered. [facility] 12-11-2007 History of Past illness Narrative* Problem Noted Date Diagnosed Date Resolved Date Unspecified vitamin D deficiency 01/19/2007 07/23/2007 Overview: See lab 07/16 Elevated blood pressure read ing without diagnosis of hypertension 07/27/2006 01/19/2007 Overview: See note 07/27/06 documented as of this encounter (statuses as of 10/01/2022) [facility]12-[facility]2007 History of Past illness Narrative* Problem Noted Date Diagnosed Date Resolved Date Unspecified vitamin D deficiency 01/19/2007 07/23/2007 Overview: See lab / Elevated blood pressure read ing without diagnosis of hypertension 07/27/2006 01/19/2007 Overview: See note 07/27/06 documented as of this encounter (statuses as of 10/14/2022) [facility] History of Past illness Narrative* Problem Noted Date Diagnosed Date Resolved Date Unspecified vitamin D deficiency 01/19/2007 07/23/2007 Overview: See lab 07/16 Elevated blood pressure read ing without diagnosis of hypertension 07/27/2006 01/19/2007 Overview: See note 07/27/06 documented as of this encounter (statuses as of 12/04/2022) [facility] discharge follow-up- Primary Other follow-up examination Acute cystitis without hematuria Acute cystitis documented in this [facility] Diagnosis Hospital discharge follow-up- Primary Other follow-up examination Renal insufficiency Unspecified disorder of kidney and ureter COVID-19 Tobacco use disorder Rheumatoid arthritis involving both hands with positive rheumatoid factor (HCC) Other emphysema (HCC) Other emphysema Peripheral vascular disease, unspecified (HCC) Peripheral vascular disease, unspecified documented in this encounter [facility] course Narrative No data available for this section [facility] Summary Purpose Family History No Family History Records FoundNo Family History Records Found No data available for this section No data available for this section No Family History Records FoundNo Family History Records Found Advance Directives No Advanced Directives Records FoundNo Advanced Directives Records FoundNo Advanced Directives Records FoundNo Advanced Directives Records Found Additional Source Comments INFORMATION SOURCE (unrecogn ized section and content) DATE CREATED AUTHOR AUTHOR'S ORGANIZ ATION 10/19/2017 [facility] DATE CREATED AUTHOR AUTHOR'S ORGANIZ ATION 12/06/2022 [facility] DATE CREATED AUTHOR AUTHOR'S ORGANIZ ATION 12/07/2022 [facility] Care Team (unrecognized sect ion and content) Care Team Personnel Name: HECTOR ORTEZ MD Member Role: Primary Care Physician Address: Address: [address] [place] [phone]- Care Team Related Persons Name: RENEJUDAH Address: [facility] Name: BECKYALMASOHEILA BLUE Address: Home [address] [place] [address] Patient Care team informatio n (unrecognized section and content) Radio Station Engineer Relationship Specialty Start Date End Date Hector Ortez MD [address] [place], [place] [id number] PCP - General Cardiology 07/25/08 Mark Edward MD [address] [place] [address] Primary Staff Physician Cardiology 04/27/18 Radio Station Engineer Relationship Specialty Start Date End Date Hector Ortez MD [address] [place] [address] PCP - General Cardiology 07/25/08 Mark Edward MD [address] [place] [address] Primary Staff Physician Cardiology 04/27/18 Source Comments (unrecognize d section and content) In the event this informatio n is protected by the Federal Confidentiality of Alcohol and Drug Abuse Patient Records regulations: The Federal rules restrict any use of the information to criminally investigate or prosecute any alcohol or drug abuse patient.[facility] the event this information is protected by the Federal Confidentiality of Alcohol and Drug Abuse Patient Records regulations: The Federal rules restrict any use of the information to criminally investigate or prosecute any alcohol or drug abuse patient.[facility] the event this information is protected by the Federal Confidentiality of Alcohol and Drug Abuse Patient Records regulations: The Federal rules restrict any use of the information to criminally investigate or prosecute any alcohol or drug abuse patient.[facility] Reason for Visit (unrecogniz ed section and content) Reason Comments Follow Up ER follow for UTI Reason Comments Hospital F/U [facility] er and mental status change FOR RECORDS PERTAINING TO PATIENTS WHO ARE OR HAVE BEEN ENROLLED IN A CHEMICAL DEPENDENCY/SUBSTANCEABUSE PROGRAM, SOME INFORMATION MAY BE OMITTED. This clinical summary was aggregated from multiple sources. Caution should be exercised in using it in the provision of clinical care. This summary normalizes information from multiple sources, and as a consequence, information in this document may materially change the coding, format and clinical context of patient data. In addition, data may be omitted in some cases. CLINICAL DECISIONS SHOULD BE BASED ON THE PRIMARY CLINICAL RECORDS. [facility]. provides no warranty or guarantee of the accuracy or completeness of information in this document.
[2023-02-25 15:18] LABS: Absolute Neutrophil Count 3.2 X10^3/uL (2.0-7.7); Basophil# 0.06 X10^3/uL; Basophil% 0.8 % (0-1); Eosinophil# 0.21 X10^3/uL; Hematocrit 45.9 % (37-47); Hemoglobin 15.1 g/dL (12.0-15.0); Lymphocyte % 43.6 % (19-41); Mean Corp Hgb Conc 32.9 g/dL (32-36); Mean Corpuscular Hgb 30.5 pg (27.0-32.0); Mean Corpuscular Volume 92.7 fL (81-99); Mean Platelet Vol. 11.6 fl (6.2-12.0); Monocyte# 0.58 X10^3/uL; Monocyte% 8.2 % (0-10); NRBC Flagged by Analyzer 0 % (0-5); Neutrophil # 3.15 X10^3/uL (2.7-7.7); Neutrophil % 44.3 % (47-70); Platelet Count 195 K/mm3 (150-450); RBC Distribution Width CV 12.8 % (11.6-14.6); RBC Distribution Width SD 43.5 fl (35.1-43.9); Red Blood Count 4.95 M/mm3 (4.2-5.4); White Blood Count 7.1 K/mm3 (4.4-11.0)
[2023-02-25 16:23] LABS: ALB/GLOB Ratio 1.1 RATIO (0.9-2.4); AST(SGOT) 20 U/L (15-37); Alanine Aminotransfer ALT/SGPT 21 U/L (13-56); Albumin, Serum 3.7 g/dL (3.2-5.0); Alkaline Phosphatase 68 U/L (45-117); Anion Gap 4 (5-15); BUN 16 mg/dL (7-18); BUN/Creat Ratio 18.1 RATIO (10-20); Calcium,Total 9.5 mg/dL (8.5-10.1); Chloride 107 mmol/L (98-107); Creatinine, Serum 0.89 mg/dL (0.55-1.02); EST Glomerular Filtration Rate 65 mL/min (>60); Est Glom Filt Rate - Afr Amer 79 mL/min (>60); Globulin 3.5 g/dL (2.2-4.2); Glucose 102 mg/dL (74-106); Potassium 4.2 mmol/L (3.5-5.1); Protein, Total 7.2 g/dL (6.4-8.2); Sodium Level 139 mmol/L (136-145)
== END | disposition home or self-care (01) ==
PROVIDERS: PCP Family Medicine; Referring Provider Internal Medicine Rheumatology; Visit Provider Internal Medicine Rheumatology
DX: M06.00 Rheumatoid arthritis without rheumatoid factor, unspecified site (principal); Z79.899 Other long term (current) drug therapy
CPT/HCPCS: 36415; 80053; 85025

== ENCOUNTER → 2023-05-22 | Outpatient (CLI) | payer MEDICARE, SELFPAY ==
[2023-05-22 15:46] LABS: Absolute Neutrophil Count 3.2 X10^3/uL (2.0-7.7); Basophil# 0.06 X10^3/uL; Basophil% 0.8 % (0-1); Eosinophil# 0.31 X10^3/uL; Eosinophils% 3.9 % (0-5); Hematocrit 43.9 % (37-47); Hemoglobin 14.9 g/dL (12.0-15.0); Mean Corp Hgb Conc 33.9 g/dL (32-36); Mean Corpuscular Hgb 31.4 pg (27.0-32.0); Mean Corpuscular Volume 92.6 fL (81-99); Mean Platelet Vol. 12.3 fl (6.2-12.0); Monocyte# 0.59 X10^3/uL; Monocyte% 7.5 % (0-10); NRBC Flagged by Analyzer 0 % (0-5); Neutrophil # 3.19 X10^3/uL (2.7-7.7); Neutrophil % 40.5 % (47-70); Platelet Count 203 K/mm3 (150-450); RBC Distribution Width CV 12.7 % (11.6-14.6); RBC Distribution Width SD 43.4 fl (35.1-43.9); Red Blood Count 4.74 M/mm3 (4.2-5.4); White Blood Count 7.9 K/mm3 (4.4-11.0)
[2023-05-22 16:25] LABS: ALB/GLOB Ratio 1.1 RATIO (0.9-2.4); AST(SGOT) 23 U/L (15-37); Alanine Aminotransfer ALT/SGPT 31 U/L (13-56); Albumin, Serum 3.6 g/dL (3.2-5.0); Alkaline Phosphatase 77 U/L (45-117); Anion Gap 5 (5-15); BUN 19 mg/dL (7-18); Calcium,Total 9.4 mg/dL (8.5-10.1); Chloride 109 mmol/L (98-107); EST Glomerular Filtration Rate 57 mL/min (>60); Est Glom Filt Rate - Afr Amer 68 mL/min (>60); Globulin 3.4 g/dL (2.2-4.2); Glucose 171 mg/dL (74-106); Sodium Level 140 mmol/L (136-145)
== END | disposition home or self-care (01) ==
LOC: MTLAB 12:57
PROVIDERS: PCP Family Medicine; Referring Provider Internal Medicine Rheumatology; Visit Provider Internal Medicine Rheumatology
DX: M06.00 Rheumatoid arthritis without rheumatoid factor, unspecified site (principal); Z79.899 Other long term (current) drug therapy
CPT/HCPCS: 36415; 80053; 85025

== ENCOUNTER → 2023-08-17 | Outpatient (CLI) | payer MEDICARE, SELFPAY ==
[2023-08-17 15:03] LABS: Absolute Lymphocyte Count 3.83 X10^3/uL (0.83-4.51); Absolute Neutrophil Count 2.5 X10^3/uL (2.0-7.7); Basophil# 0.04 X10^3/uL; Basophil% 0.6 % (0-1); Eosinophil# 0.29 X10^3/uL; Hematocrit 46.6 % (37-47); Hemoglobin 15.3 g/dL (12.0-15.0); Lymphocyte # 3.83 X10^3/ul (0.83-4.51); Lymphocyte % 52.8 % (19-41); Mean Corp Hgb Conc 32.8 g/dL (32-36); Mean Corpuscular Hgb 30.2 pg (27.0-32.0); Mean Corpuscular Volume 91.9 fL (81-99); Mean Platelet Vol. 11.8 fl (6.2-12.0); Monocyte# 0.58 X10^3/uL; NRBC Flagged by Analyzer 0 % (0-5); Neutrophil % 34.3 % (47-70); Platelet Count 216 K/mm3 (150-450); RBC Distribution Width CV 12.7 % (11.6-14.6); RBC Distribution Width SD 42.7 fl (35.1-43.9); Red Blood Count 5.07 M/mm3 (4.2-5.4); White Blood Count 7.3 K/mm3 (4.4-11.0)
[2023-08-17 15:29] LABS: ALB/GLOB Ratio 1.1 RATIO (0.9-2.4); AST(SGOT) 24 U/L (15-37); Alanine Aminotransfer ALT/SGPT 26 U/L (13-56); Alkaline Phosphatase 79 U/L (45-117); Anion Gap 4 (5-15); BUN 12 mg/dL (7-18); BUN/Creat Ratio 12.1 RATIO (10-20); Calcium,Total 9.8 mg/dL (8.5-10.1); Chloride 107 mmol/L (98-107); EST Glomerular Filtration Rate 57 mL/min (>60); Est Glom Filt Rate - Afr Amer 69 mL/min (>60); Globulin 3.5 g/dL (2.2-4.2); Glucose 97 mg/dL (74-106); Potassium 4.4 mmol/L (3.5-5.1); Protein, Total 7.5 g/dL (6.4-8.2); Sodium Level 139 mmol/L (136-145)
== END | disposition home or self-care (01) ==
LOC: MTLAB 11:43
PROVIDERS: PCP Family Medicine; Referring Provider Internal Medicine Rheumatology; Visit Provider Internal Medicine Rheumatology
DX: M06.00 Rheumatoid arthritis without rheumatoid factor, unspecified site (principal); Z79.899 Other long term (current) drug therapy
CPT/HCPCS: 36415; 80053; 85025

== ENCOUNTER → 2023-11-06 | Outpatient (CLI) | payer MEDICARE, SELFPAY ==
[2023-11-06 12:45] LABS: Absolute Lymphocyte Count 3.49 X10^3/uL (0.83-4.51); Absolute Neutrophil Count 3.3 X10^3/uL (2.0-7.7); Basophil# 0.06 X10^3/uL; Basophil% 0.8 % (0-1); Eosinophil# 0.21 X10^3/uL; Eosinophils% 2.7 % (0-5); Hematocrit 45.2 % (37-47); Lymphocyte # 3.49 X10^3/ul (0.83-4.51); Lymphocyte % 44.9 % (19-41); Mean Corp Hgb Conc 33.2 g/dL (32-36); Mean Corpuscular Hgb 30.2 pg (27.0-32.0); Mean Corpuscular Volume 91.1 fL (81-99); Mean Platelet Vol. 11.6 fl (6.2-12.0); Monocyte# 0.66 X10^3/uL; Monocyte% 8.5 % (0-10); NRBC Flagged by Analyzer 0 % (0-5); Neutrophil # 3.33 X10^3/uL (2.7-7.7); Neutrophil % 42.7 % (47-70); Platelet Count 236 K/mm3 (150-450); RBC Distribution Width CV 12.5 % (11.6-14.6); RBC Distribution Width SD 41.9 fl (35.1-43.9); Red Blood Count 4.96 M/mm3 (4.2-5.4); White Blood Count 7.8 K/mm3 (4.4-11.0)
[2023-11-06 13:39] LABS: ALB/GLOB Ratio 1.1 RATIO (0.9-2.4); AST(SGOT) 25 U/L (15-37); Alanine Aminotransfer ALT/SGPT 33 U/L (13-56); Albumin, Serum 3.8 g/dL (3.2-5.0); Alkaline Phosphatase 73 U/L (45-117); Anion Gap 3 (5-15); BUN 15 mg/dL (7-18); BUN/Creat Ratio 16.6 RATIO (10-20); Calcium,Total 9.7 mg/dL (8.5-10.1); Chloride 106 mmol/L (98-107); EST Glomerular Filtration Rate 64 mL/min (>60); Est Glom Filt Rate - Afr Amer 77 mL/min (>60); Globulin 3.5 g/dL (2.2-4.2); Glucose 101 mg/dL (74-106); Potassium 4.2 mmol/L (3.5-5.1); Protein, Total 7.3 g/dL (6.4-8.2); Sodium Level 137 mmol/L (136-145)
== END | disposition home or self-care (01) ==
LOC: MTLAB 11:19
PROVIDERS: PCP Family Medicine; Referring Provider Internal Medicine Rheumatology; Visit Provider Internal Medicine Rheumatology
DX: M06.00 Rheumatoid arthritis without rheumatoid factor, unspecified site (principal); M18.12 Unilateral primary osteoarthritis of first carpometacarpal joint, left hand; Z79.899 Other long term (current) drug therapy
CPT/HCPCS: 36415; 80053; 85025

== ENCOUNTER → 2024-02-05 | Outpatient (CLI) | payer MEDICARE, SELFPAY ==
[2024-02-05 12:14] LABS: Absolute Neutrophil Count 2.9 X10^3/uL (2.0-7.7); Basophil# 0.06 X10^3/uL; Eosinophil# 0.22 X10^3/uL; Eosinophils% 3.6 % (0-5); Hemoglobin 14.9 g/dL (12.0-15.0); Lymphocyte % 38.1 % (19-41); Mean Corp Hgb Conc 33.1 g/dL (32-36); Mean Corpuscular Hgb 30.7 pg (27.0-32.0); Mean Corpuscular Volume 92.6 fL (81-99); Mean Platelet Vol. 11.5 fl (6.2-12.0); Monocyte# 0.56 X10^3/uL; Monocyte% 9.3 % (0-10); NRBC Flagged by Analyzer 0 % (0-5); Neutrophil # 2.87 X10^3/uL (2.7-7.7); Neutrophil % 47.5 % (47-70); Platelet Count 243 K/mm3 (150-450); RBC Distribution Width CV 12.7 % (11.6-14.6); Red Blood Count 4.86 M/mm3 (4.2-5.4)
[2024-02-05 12:42] LABS: ALB/GLOB Ratio 0.9 RATIO (0.9-2.4); AST(SGOT) 20 U/L (15-37); Alanine Aminotransfer ALT/SGPT 29 U/L (13-56); Albumin, Serum 3.5 g/dL (3.2-5.0); Alkaline Phosphatase 70 U/L (45-117); Anion Gap 2 (5-15); BUN 15 mg/dL (7-18); BUN/Creat Ratio 13.4 RATIO (10-20); Calcium,Total 9.7 mg/dL (8.5-10.1); Chloride 106 mmol/L (98-107); Creatinine, Serum 1.12 mg/dL (0.55-1.02); EST Glomerular Filtration Rate 50 mL/min (>60); Est Glom Filt Rate - Afr Amer 60 mL/min (>60); Globulin 3.8 g/dL (2.2-4.2); Glucose 113 mg/dL (74-106); Potassium 4.2 mmol/L (3.5-5.1); Protein, Total 7.3 g/dL (6.4-8.2); Sodium Level 138 mmol/L (136-145)
== END | disposition home or self-care (01) ==
LOC: MTLAB 09:56
PROVIDERS: PCP Family Medicine; Referring Provider Internal Medicine Rheumatology; Visit Provider Internal Medicine Rheumatology
DX: M06.00 Rheumatoid arthritis without rheumatoid factor, unspecified site (principal); M18.12 Unilateral primary osteoarthritis of first carpometacarpal joint, left hand; Z79.899 Other long term (current) drug therapy
CPT/HCPCS: 36415; 80053; 85025

== ENCOUNTER → 2024-03-09 | Outpatient (CLI) | payer MEDICARE, SELFPAY ==
--- NOTE | 2024-03-09 14:15 | RAD_ITS ---
PROCEDURE: LUMBAR SPINE 2 OR 3 VIEWS REASON FOR EXAM: Back pain. TECHNIQUE: 2 view(s) of the lumbar spine COMPARISON: None. RAD/Lumbar Spine 2 or 3 Views IMPRESSION: Prominent arterial calcification is seen mild degenerative changes are seen thr oughout the lumbar spine, most prominently at L5-S1, where at least moderate disc space narrowing is noted. Lower lumbar posterior facet hypertrophy is also seen. No evidence of spondylolysis or significant degree of spondylolisthesis. A thoracolumbar area of dextroscoliosis is centered about the T12 level. Mild symmetric sacroiliac joint degenerative changes are seen. No lumbar fracture site is identified. Reading Location: [id number]
--- NOTE | 2024-03-09 14:15 | RAD_ITS ---
PROCEDURE: THORACIC SPINE 3 VIEWS REASON FOR EXAM: Back pain TECHNIQUE: Three-view AP and lateral thoracic spine series COMPARISON: None. RAD/Thoracic Spine 3 Views IMPRESSION: Limited imaging of the cervical spine shows moderate to moderately severe degen erative changes, greatest at C4-C5 and C5-C6 levels. Mild thoracic kyphosis is seen. A moderately severe wedge compression Fracture at the lower thoracic spine is s een,, likely representing the T10 vertebral body, without significant subluxation appreciated. Otherwise, mild degenerative disc disease is noted. Also, thoracic dextroscoliosis is seen, centered about the T10 level. Reading Location: [id number]
[2024-03-09 19:03] LABS: ALB/GLOB Ratio 0.7 RATIO (0.9-2.4); AST(SGOT) 17 U/L (15-37); Alanine Aminotransfer ALT/SGPT 21 U/L (13-56); Albumin, Serum 3.1 g/dL (3.2-5.0); Alkaline Phosphatase 94 U/L (45-117); Anion Gap 7 (5-15); BUN 14 mg/dL (7-18); BUN/Creat Ratio 17.5 RATIO (10-20); Calcium,Total 9.5 mg/dL (8.5-10.1); Chloride 104 mmol/L (98-107); EST Glomerular Filtration Rate 73 mL/min (>60); Est Glom Filt Rate - Afr Amer 88 mL/min (>60); Globulin 4.2 g/dL (2.2-4.2); Glucose 95 mg/dL (74-106); Potassium 4.2 mmol/L (3.5-5.1); Protein, Total 7.3 g/dL (6.4-8.2); Sodium Level 137 mmol/L (136-145)
== END | disposition home or self-care (01) ==
PROVIDERS: PCP Family Medicine; Referring Provider Internal Medicine Rheumatology; Visit Provider Internal Medicine Rheumatology
DX: M06.00 Rheumatoid arthritis without rheumatoid factor, unspecified site (principal); M18.12 Unilateral primary osteoarthritis of first carpometacarpal joint, left hand; Z79.899 Other long term (current) drug therapy
CPT/HCPCS: 36415; 72072; 72100; 80053

== ENCOUNTER → 2024-03-11 | Outpatient (CLI) | payer MEDICARE, SELFPAY ==
[2024-03-14 13:07] LABS: QNTFERON TB Mitogen Value > 10.00 IU/mL (.); QNTFERON TB Nil Value 0.09 IU/mL (.); QNTFERON TB1+ Ag Value 0.09 IU/mL (.); QNTFERON TB2+ Ag Value 0.12 IU/mL (.); QNTIFERON TB Positive Criteria Negative (Negative)
== END | disposition home or self-care (01) ==
LOC: MTLAB 12:35
PROVIDERS: PCP Family Medicine; Referring Provider Internal Medicine Rheumatology; Visit Provider Internal Medicine Rheumatology
DX: M18.12 Unilateral primary osteoarthritis of first carpometacarpal joint, left hand (principal); M81.0 Age-related osteoporosis without current pathological fracture; Z79.899 Other long term (current) drug therapy
CPT/HCPCS: 36415; 86480

== ENCOUNTER → 2024-04-16 | Outpatient (CLI) | payer MEDICARE, SELFPAY ==
--- NOTE | 2024-04-16 10:15 | MRI_ITS ---
PROCEDURE: MRI SPINE THORACIC (ROUTINE) REASON FOR EXAM: Back pain. TECHNIQUE: Noncontrast thoracic spine MRI. COMPARISON: Thoracic spine x-ray from 03/09/2024. FINDINGS: There is a severe compression fracture of T11 with loss of height at approximately 70% with associated bone marrow edema and likely on a subacute basis. There is retropulsion of the superior endplate of T11 by approximately 6.5 mm with associated mass effect on the ventral spinal cord resulting in moderate to severe central canal stenosis as well as bilateral neural foraminal narrowing. No abnormal cord signal is identified. The remaining thoracic vertebral bodies maintain a normal height. There are Schmorl's nodes involving the inferior endplates of T9 and T10. Multilevel anterior endplate spurring is present. There is diminished signal intensity involving the discs of the thoracic spinal cord relating to degenerative disc disease. Paraspinous musculature is unremarkable. Selected individual levels: T8-T9: Small left central disc protrusion with no significant central canal stenosis or neural foraminal narrowing. T11-T12: Left central disc protrusion superimposed on a disc bulge results in [id number] central canal stenosis. There is left neural foraminal narrowing. Right neural foramina is patent. T12-L1: Right subarticular disc extrusion with mild inferior migration superimposed on a disc bulge as well as facet/flavum hypertrophy results in mild central canal stenosis and narrowing of the right lateral recess. No significant neural foraminal narrowing. MRI/Spine Thoracic (Routine) IMPRESSION: 1. Severe anterior wedge compression fracture of T11 with loss of height at tracy roximately 70% with bone marrow edema likely on a subacute basis. There is retropulsion of the superior endplate of T11 resultin g in moderate to severe central canal stenosis as well as bilateral neural foraminal narrowing. 2. Multilevel disc protrusions as above with [id number] central canal larry nosis at T11-T12 and mild central canal stenosis at T12-L1 as well as neural foraminal narrowing. 3. No abnormal cord signal. Reading Location: [facility]
== END | disposition home or self-care (01) ==
PROVIDERS: PCP Family Medicine; Referring Provider Anesthesiology Pain Medicine; Visit Provider Anesthesiology Pain Medicine
DX: M80.08XA Age-related osteoporosis with current pathological fracture, vertebra(e), initial encounter for fracture (principal)
CPT/HCPCS: 72146

== ENCOUNTER → 2024-04-18 | Outpatient (CLI) | payer MEDICARE, SELFPAY ==
--- NOTE | 2024-04-18 13:14 | RAD_ITS ---
EXAM: XR Lumbosacral Spine, 2 or 3 Views CLINICAL INDICATION: TECHNIQUE: Frontal and lateral views of the lumbar spine and sacrum. COMPARISON: No relevant prior studies available. FINDINGS: VERTEBRAE: Moderate facet arthropathy of L4-S1. No acute fracture. Normal alignment. SACRUM/COCCYX: Unremarkable as visualized. No acute fracture. DISC SPACES: No acute findings. No significant narrowing. SOFT TISSUES: Unremarkable. RAD/Lumbar Spine 2 or 3 Views IMPRESSION: Degenerative changes as above. Reading Location: [facility]
== END | disposition home or self-care (01) ==
PROVIDERS: PCP Family Medicine; Referring Provider Anesthesiology Pain Medicine; Visit Provider Anesthesiology Pain Medicine
DX: M54.16 Radiculopathy, lumbar region (principal)
CPT/HCPCS: 72100

== ENCOUNTER → 2024-05-26 | Outpatient (CLI) | payer MEDICARE, SELFPAY ==
[2024-05-26 15:28] LABS: Absolute Lymphocyte Count 4.67 X10^3/uL (0.83-4.51); Absolute Neutrophil Count 3.6 X10^3/uL (2.0-7.7); Basophil# 0.07 X10^3/uL; Basophil% 0.8 % (0-1); Eosinophil# 0.23 X10^3/uL; Eosinophils% 2.5 % (0-5); Hematocrit 47.5 % (37-47); Hemoglobin 16.1 g/dL (12.0-15.0); Lymphocyte # 4.67 X10^3/ul (0.83-4.51); Lymphocyte % 50.5 % (19-41); Mean Corp Hgb Conc 33.9 g/dL (32-36); Mean Corpuscular Hgb 30.8 pg (27.0-32.0); Mean Corpuscular Volume 90.8 fL (81-99); Mean Platelet Vol. 11.9 fl (6.2-12.0); Monocyte# 0.71 X10^3/uL; Monocyte% 7.7 % (0-10); NRBC Flagged by Analyzer 0 % (0-5); Neutrophil # 3.55 X10^3/uL (2.7-7.7); Neutrophil % 38.3 % (47-70); Platelet Count 193 K/mm3 (150-450); RBC Distribution Width CV 12.8 % (11.6-14.6); RBC Distribution Width SD 42.5 fl (35.1-43.9); Red Blood Count 5.23 M/mm3 (4.2-5.4); White Blood Count 9.3 K/mm3 (4.4-11.0)
[2024-05-26 16:00] LABS: ALB/GLOB Ratio 1.4 RATIO (0.9-2.4); AST(SGOT) 23 U/L (<=31); Alanine Aminotransfer ALT/SGPT 15 U/L (<=34); Albumin, Serum 4.2 g/dL (3.4-4.8); Alkaline Phosphatase 80 U/L (35-104); Anion Gap 11 (5-15); BUN 21 mg/dL (4-19); BUN/Creat Ratio 23.3 RATIO (10-20); Calcium,Total 9.6 mg/dL (7.6-11.0); Carbon Dioxide 21.8 mmol/L (21.0-32.0); Chloride 105 mmol/L (98-108); Creatinine, Serum 0.91 mg/dL (0.70-1.20); EST Glomerular Filtration Rate 63 (>60); Glucose 97 mg/dL (70-99); Potassium 4.6 mmol/L (3.3-5.1); Protein, Total 7.2 g/dL (5.9-8.4); Sodium Level 138 mmol/L (133-145); Total Bilirubin 0.59 mg/dL (0.00-1.30)
== END | disposition home or self-care (01) ==
LOC: MTLAB 13:13
PROVIDERS: PCP Family Medicine; Referring Provider Internal Medicine Rheumatology; Visit Provider Internal Medicine Rheumatology
DX: M06.00 Rheumatoid arthritis without rheumatoid factor, unspecified site (principal); M18.12 Unilateral primary osteoarthritis of first carpometacarpal joint, left hand; M81.0 Age-related osteoporosis without current pathological fracture; Z79.899 Other long term (current) drug therapy
CPT/HCPCS: 36415; 80053; 85025

== ENCOUNTER → 2024-08-16 | Outpatient (CLI) | payer MEDICARE, SELFPAY ==
[2024-08-16 12:41] LABS: Hematocrit 44.4 % (37-47); Hemoglobin 14.8 g/dL (12.0-15.0); Immature Granulocytes Count 0.020 X10^3/uL (0.0-0.0); Mean Corp Hgb Conc 33.3 g/dL (32-36); Mean Corpuscular Volume 90.8 fL (81-99); Mean Platelet Vol. 12.5 fl (6.2-12.0); NRBC Flagged by Analyzer 0 % (0-5); Platelet Count 175 K/mm3 (150-450); RBC Distribution Width CV 13.1 % (11.6-14.6); RBC Distribution Width SD 43.3 fl (35.1-43.9); Red Blood Count 4.89 M/mm3 (4.2-5.4); White Blood Count 5.7 K/mm3 (4.4-11.0)
[2024-08-16 13:07] LABS: AST(SGOT) 25 U/L (<=31); Alanine Aminotransfer ALT/SGPT 15 U/L (<=34); Albumin, Serum 4.1 g/dL (3.4-4.8); Alkaline Phosphatase 59 U/L (35-104); Anion Gap 9 (5-15); BUN 13 mg/dL (4-19); BUN/Creat Ratio 17.2 RATIO (10-20); Calcium,Total 9.4 mg/dL (7.6-11.0); Carbon Dioxide 23.3 mmol/L (21.0-32.0); Chloride 104 mmol/L (98-108); Globulin 2.6 g/dL (2.2-4.2); Glucose 98 mg/dL (70-99); Potassium 4.1 mmol/L (3.3-5.1)
== END | disposition home or self-care (01) ==
LOC: MTLAB 10:44
PROVIDERS: PCP Family Medicine; Referring Provider Internal Medicine Rheumatology; Visit Provider Internal Medicine Rheumatology
DX: M06.00 Rheumatoid arthritis without rheumatoid factor, unspecified site (principal); M18.12 Unilateral primary osteoarthritis of first carpometacarpal joint, left hand; Z79.899 Other long term (current) drug therapy
CPT/HCPCS: 36415; 80053; 85025

== ENCOUNTER → 2024-11-11 | Outpatient (CLI) | payer MEDICARE, SELFPAY ==
--- OUTSIDE RECORDS SUMMARY | 2024-11-11 11:44 | XMS RPT_ITS | CCD ---
Author Organization [facility] CliniSyme Care Team Providers Care Brick Tester Name Role Phone BIMAL RODRIGUEZ Unavailable Unavailable HECTOR COSTELLO Unavailable Unavailable BIMAL RODRIGUEZ Unavailable Unavailable Hector Costello Unavailable Unavailable Hector Costello Unavailable Unavailable PRAVIN RICHARDSON, DR YOUNG Primary Care Physician Dr. Hector Costello Primary Care Provider [phone] Dr. Derrick Hayes Emergency Provider Dr. Ligia Driscoll Admit Provider Dr. Alfred Lowery Other Provider Dr. Silas Luna Attending Provider Dr. Silas Luna Other Provider PRAVIN RICHARDSON, DR YOUNG Primary Care Physician Hector Costello MD Primary Care Provider Mark Edward MD Unavailable [phone] POLLO CASILLAS, DR KAYLA Pa Attending Unavailable PRAVIN RICHARDSON, DR YOUNG Primary Care Unavailab mike COSTELLO MD, DR YOUNG Primary Care Unavailab JONATHAN Ma Referring Unavailable JONATHAN BLACK Admitting Unavailable TESS SANCHEZ MD Attending Unavailable TESS SANCHEZ MD Consulting Unavailable PRAVIN RICHARDSON, DR YOUNG Consulting Unavailab Hector Desouza MD Primary Care Provider Kamra LLANOS.Patricia GUERRERO Unavailable Derek MOVEMENT ASSEMBLY FINAL INSPECTORCelina PADILLAe Unavailable PRAVIN RICHARDSON, DR YOUNG Primary Care Unavailab KATEY Prieto MD Attending Unavailable AMADOU DO, DR TOBIAS Garcia Attending Unavailabl e AMADOU DO, DR TOBIAS Garcia Primary Care Unavailabl e Pravin RICHARDSON, Dr. Young Primary Care Provider Shell RICHARDSON, Dr. Villegas Attending Provider Shell RICHARDSON, Dr. Villegas Referring Provider Gera Ko Other Provider Pravin RICHARDSON, Dr. Young Referring Provider Gera Ko Attending Provider Lillian RICHARDSON, Dr. Moura Attending Provider Lillian RICHARDSON, Dr. Moura Referring Provider [phone] Amadou , Dr. Baig Primary Care Provider Amadou DO, Dr. Baig Primary Care Provider [phone] Shell RICHARDSON, Dr. Villegas Attending Provider Shell RICHARDSON, Dr. Villegas Referring Provider Nelly Goff Attending Unavailable Vellanki, Nelly Referring Unavailable Elderbrock, Hector Primary Care Unavailable Vellanki, Nelly Attending Unavailable Vellanki, Nelly Referring Unavailable Elderbrock, Hector Primary Care Unavailable Vellanki, Nelly Referring Unavailable Amadou, Tobias Primary Care Unavailable Vellanki, Nelly Attending Unavailable Vellanki, Nelly Referring Unavailable Amadou, Tobias Primary Care Unavailable Vellanki, Nelly Attending Unavailable Amadou, Tobias Primary Care Unavailable Basali, Ayman Referring Unavailable Basali, Cristianman Attending Unavailable Amadou, Tobias Primary Care Unavailable Basali, Ayman Referring Unavailable Basali, Ayman Attending Unavailable Vellanki, Nelly Referring Unavailable Elderbrock, Hector Primary Care Unavailable Vellanki, Nelly Attending Unavailable Vellanki, Nelly Referring Unavailable Gera Ko Consulting Unavailable Vellanki, Nelly Attending Unavailable Elderbrock, Hector Primary Care Unavailable Gera Ko Attending Unavailable Elderbrock, Hector Referring Unavailable Elderbrock, Hector Primary Care Unavailable Medications Current Medications Medication Drug Class(es) Dates Sig (Normalized) Sig (Original) acetaminophen 325 mg oral tablet (13 sources) Start: 04-16-2017 take 2 tablets by mouth every six hours as needed for pain Acetaminophen (Tylenol) 325 MG tablet Active 650 mg PO EVERY 6 HOURS NEEDED as needed for Fever, headache, pain 0 April 16, 2017 1:00am aspirin 81 mg delayed release oral tablet (4 sources) Platelet Aggregation Inhibitor, Nonsteroidal Anti-inflammatory Drug take 1 tablet by mouth once daily aspirin, enteric coated (ASPIRIN, ENTERIC COATED) 81 mg EC tablet Take 81 mg by mouth once daily. Active Comment on above: Take 81 mg by mouth once daily. cefdinir 25 mg/ml oral suspension (2 sources) Cephalosporin Antibacterial Start: 11-02-2021 End: 11-07-2021 take 1 dose by mouth every twelve hours cefdinir 125 mg/5 mL oral liquid Dose : 300 mg = 12 mL, Oral, q12h, Please cancel the previous prescription for pills as this patient is unable to swallow pills., X 5 day(s), # 120 mL, 0 Refill(s), 11/07/21 12:48:00 EDT, Pharmacy: [facility]/pharmacy #[id number], 162.6, cm, 11/02/21 0:29:00 EDT,... Start Date: 11/02/21 Stop Date: 11/07/21 Status: Ordered Start: 11-02-2021 End: 11-07-2021 cefdinir 300 mg oral capsule Dose : 300 mg = 1 cap(s), Oral, q12h, X 5 day(s), # 10 cap(s), 0 Refill(s), 11/07/21 12:12:00 EDT, Pharmacy: [facility]/pharmacy #[id number], 162.6, cm, 11/02/21 0:29:00 EDT, Height, 56.8 Start Date: 11/02/21 Stop Date: 11/07/21 Status: Ordered cephalexin 50 mg/ml oral suspension (1 source) Cephalosporin Antibacterial Start: 09-07-2022 End: 09-17-2022 take 1 dose by mouth four times daily cephalexin 250 mg/5 mL oral liquid Dose : 500 mg = 10 mL, Oral, QID, take with a probiotic, X 10 day(s), # 400 mL, 0 Refill(s), 09/17/22 6:44:00 PM EDT, 56.8 Start Date: 09/07/22 Stop Date: 09/17/22 Status: Ordered cholecalciferol 0.025 mg oral tablet (4 sources) Vitamin D take 1 tablet by mouth once daily cholecalciferol (VITAMIN D) 1,000 unit tab tablet Take 1,000 Units by mouth once daily. Active Comment on above: Take 1,000 Units by mouth once daily. dexamethasone 6 mg oral tablet (1 source) Corticosteroid Start: 12-07-2020 End: 12-13-2020 dexamethasone 6 mg oral tablet Dose : 6 mg = 1 tab(s), Oral, qDay, # 7 tab(s), 0 Refill(s), 12/13/20 11:31:00 EDT, Pharmacy: [facility]/pharmacy #[id number], 157.5, cm, 12/03/20 23:53:00 EDT, Height, kg, 12/03/20 23:53:00 EDT, Dosing Weight Start Date: 12/07/20 Stop Date: 12/13/20 Status: Ordered etanercept 25 mg/ml injectable solution (20 sources) Tumor Necrosis Factor Becka Start: 12-04-2020 Enbrel 25 mg subcutaneous kit See Instructions, Subcutaneous 1xweek, 0 Refill(s) Start Date: 12/04/20 Status: Ordered Repeat number: 1 Start: 04-14-2017 inject 50 mg by subc utaneous injection every week Etanercept (Enbrel) 50 MG/ML syringe Active 50 mg SQ Q7D April 14, 2017 1:00am RA Comment on above: Inject 1 mL subcutan eously one time a week. entire contents of 1 syringe (50mg/1mL). folic acid 1 mg oral tablet (17 sources) Start: 04-14-2017 take 1 tablet by mouth once daily Folic Acid 1 MG tablet Active 1 mg PO DAILY April 14, 2017 1:00am vitamin Comment on above: Take 1 tablet by zee th once daily. Food Supplemt, Lactose-Reduced (18 sources) Start: 03-13-2021 take 1 mL by mouth four times daily Food Supplemt, Lactose-Reduced Active 120 ML PO 4 TIMES DAILY March 13, 2021 9:14am Start: 03-13-2021 take 1 mL by mouth f our times daily Food Supplemt, Lactose-Reduced Active 120 ML PO 4 TIMES DAILY March 13, 2021 10:14am Start: 04-16-2017 End: 03-13-2021 take 1 mL by mouth four times daily Food Supplemt, Lactose-Reduced Discontinued 120 ML PO 4 TIMES DAILY 100 April 16, 2017 9:50am March 13, 2021 10:14am Start: 04-16-2017 End: 03-13-2021 take 1 mL by mouth four times daily Food Supplemt, Lactose-Reduced Discontinued 120 ML PO 4 TIMES DAILY 100 April 16, 2017 1:00am March 13, 2021 10:14am Start: 04-16-2017 End: 03-13-2021 take 1 mL by mouth four times daily Food Supplemt, Lactose-Reduced Discontinued 120 ML PO 4 TIMES DAILY 100 April 16, 2017 12:00am March 13, 2021 9:14am Food Supplemt, Lactose-Reduced 120 ML liquid (8 sources) Start: 03-13-2021 take 1 mL by mouth four times daily Food Supplemt, Lactose-Reduced 120 ML liquid Active 120 mL PO 4 TIMES DAILY March 13, 2021 10:14am supplement Start: 03-13-2021 take 1 mL by mouth f our times daily Food Supplemt, Lactose-Reduced 120 ML liquid Active 120 mL PO 4 TIMES DAILY March 13, 2021 10:14am Start: 04-16-2017 End: 03-13-2021 take 1 mL by mouth four times daily Food Supplemt, Lactose-Reduced 120 ML liquid Discontinued 120 mL PO 4 TIMES DAILY 100 0 April 16, 2017 1:00am March 13, 2021 10:14am Start: 04-16-2017 End: 03-13-2021 take 1 mL by mouth four times daily Food Supplemt, Lactose-Reduced 120 ML liquid Discontinued 120 mL PO 4 TIMES DAILY April 16, 2017 1:00am March 13, 2021 10:14am meloxicam 1.5 mg/ml oral suspension (3 sources) Nonsteroidal Anti-inflammatory Drug Start: 07-29-2014 take 1 dose by mouth once daily meloxicam 7.5 mg/5 mL oral suspension Dose : 7.5 mg = 5 mL, Oral, qDay Start Date: 07/29/14 Status: Ordered Start: 07-29-2014 take 1 dose by mouth once kvng y meloxicam 7.5 mg/5 mL oral suspension Dose : 7.5 mg = 5 mL, Oral, qDay Start Date: 6/20/15 Status: Ordered methotrexate 2.5 mg oral tablet (20 sources) Folate Analog Metabolic Inhibitor Start: 11-01-2021 methotrexate 2.5 mg oral tablet 0 Refill(s) Start Date: 11/01/21 Status: Ordered Repeat number: 1 Start: 04-14-2017 Methotrexate S odium 2.5 MG tablet Active 8 {tbl} EVERY WEEK April 14, 2017 1:00am arthritis Start: 04-14-2017 take 8 tablets by mo ut every week methotrexate 2.5 mg tablet Take 8 tablets by mouth once each week. 64 tablet 2 07/13/2017 Active Comment on above: Take 8 tablets by mo [facility] once each week. predniSONE 10 mg oral tablet (17 sources) Start: 03-09-2024 take 3 tablets by mouth once daily, then take 2 tablets by mouth once daily, then take 1 tablet by mouth once daily Prednisone 10 mg tablet Active 10 mg PO DAILY 18 March 09, 2024 1:00am 3 tablets daily x3 days, then 2 tablets daily x3 days, then 1 tablet daily x3 days Start: 04-14-2017 End: 04-16-2017 take 1 tablet by mouth once daily Prednisone 20 MG tablet Discontinued 20 mg PO DAILY April 14, 2017 1:00am April 16, 2017 9:52am Completed/Discontinued Medications Medication Drug Class(es) Dates Sig (Normalized) Sig (Original) alendronic acid 70 mg oral tablet (18 sources) Bisphosphonate Start: 04-14-2017 End: 03-09-2024 take 1 tablet by mouth every week Alendronate 70 MG tablet Discontinued 70 mg PO Q7D@0700 April 14, 2017 1:00am March 09, 2024 3:14pm arthritis Calcium Carbonate (3 sources) End: 12-04-2022 CALCIUM CARBONATE (CALCIUM 600 ORAL) Take by mouth once daily. 0 12/04/2022 Discontinued CALCIUM CARBONAT E (CALCIUM 600 ORAL) Take by mouth once daily. 0 Active Comment on above: Take by mouth once d aily. oseltamivir 75 mg oral capsule (20 sources) Neuraminidase Inhibitor Start: 03-13-19 End: 03-09-19 take 1 capsule by mouth twice daily Oseltamivir (Tamiflu) 75 mg capsule Discontinued 75 mg PO TWICE A DAY 8 4 0 March 13, 2021 1:00am March 09, 2024 3:14pm Start: 04-16-2017 End: 03-13-2021 take 75 mg by mouth twice daily Oseltamivir 6 MG/ML bottle Discontinued 75 mg PO TWICE A DAY 8 0 April 16, 2017 1:00am March 13, 2021 10:07am Start: 04-16-2017 End: 03-13-2021 take 75 mg by mouth twice daily Oseltamivir Discontinued 75 MG PO TWICE A DAY 8 April 16, 2017 1:00am March 13, 2021 10:07am Problems Active Problems Problem Classification Problem Date Documented Da te Episodic/Chronic Chronic obstructive pulmonary disease and bronchiectasis (5 sources) Pulmonary emphysema; Translations: [Other emphysema] Onset: 07-27-2006 10-17-2017 Chronic Diseases of white blood cells (1 source) Leukopenia; Translations: [Decreased white blood cell count, unspecified] Onset: 12-04-2020 Chronic Essential hypertension (4 sources) Benign essential hypertension; Translations: [Essential (primary) hypertension] Onset: 01-19-2007 01-19-2007 Chronic Fever of unknown origin (14 sources) Fever; Translations: [Fever, unspecified] Episodic Influenza (14 sources) Influenza due to Influenza A virus; Translations: [Influenza due to other identified influenza virus with other respiratory manifestations] Episodic Malaise and fatigue (2 sources) Asthenia; Translations: [Weakness] Onset: 12-04-2020 Episodic Osteoarthritis (5 sources) Arthritis 07-29-2014 Chronic Osteoporosis (18 sources) Primary osteoporosis; Translations: [Age-related osteoporosis without current pathological fracture] Onset: 07-27-2006 Chronic Other aftercare (2 sources) Post-discharge follow-up; Translations: [Encounter for follow-up examination after completed treatment for conditions other than malignant neoplasm] 10-14-2022 Episodic Other diseases of kidney and ureters (1 source) Disorder of kidney and/or ureter; Translations: [Disorder of kidney and ureter, unspecified] Onset: 11-28-2022 Episodic Other diseases of kidney and ureters (1 source) Renal impairment; Translations: [Disorder of kidney and ureter, unspecified] 12-04-2022 Episodic Other fractures (7 sources) Fracture of tenth thoracic vertebra; Translations: [Wedge compression fracture of T9-T10 vertebra, initial encounter for closed fracture] 03-09-2024 Episodic Other injuries and conditions due to external causes (13 sources) Systemic inflammatory response syndrome; Translations: [Systemic inflammatory response syndrome (SIRS) of non-infectious origin without acute organ dysfunction] 03-21-2021 Episodic Other injuries and conditions due to external causes (1 source) Systemic inflammatory response syndrome (SIRS) of non-infectious origin without acute organ dysfunction; Translations: [Systemic inflammatory response syndrome, unspecified] Episodic Other nervous system disorders (13 sources) Disorder of brain; Translations: [Encephalopathy, unspecified] 03-21-2021 Chronic Other nervous system disorders (1 source) Encephalopathy, unspecified; Translations: [Encephalopathy, unspecified] Chronic Peripheral and visceral atherosclerosis (5 sources) Peripheral vascular disease; Translations: [Peripheral vascular disease, unspecified] Onset: 10-17-2017 10-17-2017 Chronic Pneumonia (except that caused by tuberculosis or sexually transmitted disease) (5 sources) Pneumonia; Translations: [Pneumonia, unspecified organism] Onset: 11-02-2021 Episodic Residual codes; unclassified (2 sources) Altered mental status; Translations: [Altered mental status, unspecified] Onset: 12-04-2020 Episodic Residual codes; unclassified (2 sources) Tobacco user; Translations: [Tobacco use] Onset: 12-04-2020 Episodic Respiratory failure; insufficiency; arrest (adult) (1 source) Acute respiratory failure; Translations: [Acute respiratory failure with hypoxia] Onset: 12-05-2020 Episodic Rheumatoid arthritis and related disease (20 sources) Rheumatoid arthritis; Translations: [Rheumatoid arthritis, unspecified] Onset: 03-05-2015 Chronic Substance-related disorders (9 sources) Tobacco user; Translations: [Nicotine dependence, unspecified, uncomplicated] Onset: 07-27-2006 07-27-2006 Chronic Unclassified (1 source) Hydronephrosis with ureteropelvic junction obstruction; Translations: [Hydronephrosis with ureteropelvic junction obstruction] Onset: 10-13-2017 Unclassified (1 source) Unknown / UNK(Unknown) Onset: 10-13-2017 Unclassified (3 sources) S22.070A - Wedge compression fracture of T9-T10 vertebra, initial encounter for closed fracture,S39.012A - Strain of muscle, fascia and tendon of lower back, initial encounter Urinary tract infections (6 sources) Urinary tract infectious disease; Translations: [Urinary tract infection, site not specified] Onset: 11-02-2021 Episodic Viral infection (1 source) Disease caused by 2018-nCoV; Translations: [COVID-19] 12-04-2022 Episodic Past or Other Problems Problem Classification Problem Date Documented Date Episodic/Chronic Diabetes mellitus without complication (4 sources) Increased glucose level; Translations: [Other abnormal glucose] Onset: 01-22-2010 01-22-2010 Episodic Nutritional deficiencies (1 source) Vitamin D deficiency; Translations: [Vitamin D deficiency, unspecified] Onset: 01-19-2007 Resolved: 07-23-2007 08-20-2023 Chronic Other circulatory disease (1 source) Elevated blood-pressure reading without diagnosis of hypertension; Translations: [Elevated blood-pressure reading, without diagnosis of hypertension] Onset: 07-27-2006 Resolved: 01-19-2007 08-20-2023 Episodic Other fractures (1 source) Wedge compression fracture of T9-T10 vertebra, initial encounter for closed fracture; Translations: [Wedge compression fracture of T9-T10 vertebra, initial encounter for closed fracture] Onset: 03-22-2024 Episodic Pathological fracture (1 source) Age-related osteoporosis with current pathological fracture, vertebra(e), initial encounter for fracture; Translations: [Age-related osteoporosis with current pathological fracture, vertebra(e), initial encounter for fracture] Onset: 04-26-2024 Episodic Spondylosis; intervertebral disc disorders; other back problems (2 sources) Radiculopathy, lumbar region; Translations: [Dorsalgia, unspecified] Onset: 03-22-2024 Episodic Sprains and strains (12 sources) Strain of muscle at thorax level; Translations: [Strain of muscle and tendon of unspecified wall of thorax, initial encounter] Onset: 03-22-2024 03-09-2024 Episodic Unclassified (1 source) Hydronephrosis with ureteropelvic junction obstruction Onset: 10-13-2017 Viral infection (2 sources) Disease caused by 2018-nCoV; Translations: [COVID-19] Onset: 12-04-2020 Results Test Name Value Interpretation Reference Range Facility Absolute lymphocyte countOrd ered By: Nelly Goff on 08-16-2024 Lymphocytes Auto (Unsp spec) [#/Vol] 2.86 10*3/uL 0.83-4.51 [facility] Absolute neutrophil countOrd ered By: Nelly Goff on 08-16-2024 Neutrophils (Bld) [#/Vol] 2.1 10*3/uL 2.0-7.7 [facility] Anion gap in Serum or Plasma Ordered By: Nelly Goff on 08-16-2024 Anion gap [Moles/Vol] 9 mmol/L 5-15 [facility] Automated lymphocyte count a s percentage of total leukocytesOrdered By: Nelly Goff on 08-16-2024 Lymphocytes/100 WBC Auto (Unsp spec) 50.4 % High 19-41 [facility] BUN/creatinine ratioOrdered By: [facility] on 08-16-2024 Urea nitrogen/Creatinine [Mass ratio] 17.2 mg/mg 10-20 [facility] Basophil percentageOrdered B y: Nelly Goff on 08-16-2024 Basophils/100 WBC (Bld) 0.5 % 0-1 [facility] Bilirubin, totalOrdered By: Nelly Goff on 08-16-2024 Bilirubin [Mass/Vol] 0.75 mg/dL 0.00-1.30 [facility] CBC W/Diff, Automatedon 070 Absolute Lymph 2.86 X10 3/uL Normal 0.83-4.51 [facility] Comment on above: Performed By: #### L [id number], L100.0100 #### [facility] [address] [place], [address] Absolute Neut 2.1 X10 3/uL Normal 2.0-7.7 [facility] Comment on above: Performed By: #### L [id number], L100.0100 #### [facility] [address] [place], [address] Basophils/100 WBC (Bld) 0.5 % Normal 0-1 [facility] Comment on above: Performed By: #### L [id number], L100.0100 #### [facility] [address] [place], [address] Eosinophils/100 WBC (Bld) 3.0 % Normal 0-5 [facility] Comment on above: Performed By: #### L [id number], L100.0100 #### [facility] [address] [place], [address] Erythrocyte distribution width (RBC) [Ratio] 13.1 % Normal 11.6-14.6 [facility] Comment on above: Performed By: #### L [id number], L100.0100 #### [facility] [address] [place], [address] Hematocrit (Bld) [Volume fraction] 44.4 % Normal 37-47 [facility] Comment on above: Performed By: #### L [id number], L100.0100 #### [facility] [address] [place], [address] Hemoglobin (Bld) [Mass/Vol] 14.8 g/dL Normal 12.0-15.0 [facility] Comment on above: Performed By: #### L [id number], L100.0100 #### [facility] [address] [place], [address] IG% 0.400 Normal 0.0-0.9 [facility] Comment on above: Result Comment: IG% - Immature Granulocytes (promyelocytes, myelocytes and metamyelocytes) > 1% indicates that a LEFT SHIFT is Present. Performed By: #### L [id number], L100.0100 #### [facility] [address] [place], [address] Lymphocytes/100 WBC (Bld) 50.4 % High 19-41 [facility] Comment on above: Performed By: #### L [id number], L100.0100 #### [facility] [address] [place], [address] MCH (RBC) [Entitic mass] 30.3 pg Normal 27.0-32.0 [facility] Comment on above: Performed By: #### L [id number], L100.0100 #### [facility] [address] [place], [address] MCHC (RBC) [Mass/Vol] 33.3 g/dL Normal 32-36 [facility] Comment on above: Performed By: #### L [id number], L100.0100 #### [facility] [address] [place], [address] MCV (RBC) [Entitic vol] 90.8 fL Normal 81-99 [facility] Comment on above: Performed By: #### L [id number], L100.0100 #### [facility] [address] [place], [address] Monocytes/100 WBC (Bld) 8.3 % Normal 0-10 [facility] Comment on above: Performed By: #### L [id number], L100.0100 #### [facility] [address] [place], [address] Neutrophils/100 WBC (Bld) 37.4 % Low 47-70 [facility] Comment on above: Performed By: #### L [id number], L100.0100 #### [facility] [address] [place], [address] Nucleated RBC (Bld) [#/Vol] 0 10*3/uL Normal 0-5 [facility] Comment on above: Performed By: #### L [id number], L100.0100 #### [facility] [address] [place], [address] Platelet mean volume (Bld) [Entitic vol] 12.5 fL High 6.2-12.0 [facility] Comment on above: Performed By: #### L [id number], L100.0100 #### [facility] [address] [place], [address] Platelets (Bld) [#/Vol] 175 10*3/uL Normal 150-450 [facility] Comment on above: Performed By: #### L [id number], L100.0100 #### [facility] [address] [place], [address] RBC (Bld) [#/Vol] 4.89 10*6/uL Normal 4.2-5.4 [facility] Comment on above: Performed By: #### L [id number], L100.0100 #### [facility] [address] [place], [address] RDW SD 43.3 fl Normal 35.1-43.9 [facility] Comment on above: Performed By: #### L [id number], L100.0100 #### [facility] [address] [place], [address] WBC (Bld) [#/Vol] 5.7 10*3/uL Normal 4.4-11.0 [facility] Comment on above: Performed By: #### L 500.4050, L100.0100 #### [facility] [address] [place], [address] Carbon dioxide, total [Moles /volume] in Central venous bloodOrdered By: Nelly Goff on 08-16-2024 CO2 [Moles/Vol] 23.3 mmol/L 21.0-32.0 [facility] Chloride assayOrdered By: Zaid Goff on 08-16-2024 Chloride [Moles/Vol] 104 mmol/L 98-108 [facility] Comprehensive Metabolic Prof ilon 08-16-2024 Albumin [Mass/Vol] 4.1 g/dL Normal 3.4-4.8 [facility] Comment on above: Performed By: #### L 500.4050, L100.0100 #### [facility] [address] [place], [address] Albumin/Globulin [Mass ratio] 1.6 {ratio} Normal 0.9-2.4 [facility] Comment on above: Performed By: #### L 500.4050, L100.0100 #### [facility] [address] [place], [address] ALK PHOS 59 U/L Normal 35-104 [facility] Comment on above: Performed By: #### L 500.4050, L100.0100 #### [facility] [address] [place], [address] ALT [Catalytic activity/Vol] 15 U/L Normal <=34 [facility] Comment on above: Performed By: #### L 500.4050, L100.0100 #### [facility] Laboratory [address] [place], [address] AST [Catalytic activity/Vol] 25 U/L Normal <=31 [facility] Comment on above: Performed By: #### L 500.4050, L100.0100 #### [facility] Laboratory [address] [place], [address] Bilirubin [Mass/Vol] 0.75 mg/dL Normal 0.00-1.30 [facility] Comment on above: Performed By: #### L 500.4050, L100.0100 #### [facility] Laboratory [address] [place], [address] BUN/CRE 17.2 RATIO Normal 10-20 [facility] Comment on above: Performed By: #### L 500.4050, L100.0100 #### [facility] Laboratory [address] [place], [address] Calcium [Mass/Vol] 9.4 mg/dL Normal 7.6-11.0 [facility] Comment on above: Performed By: #### L 500.4050, L100.0100 #### [facility] Laboratory [address] [place], [address] Chloride [Moles/Vol] 104 mmol/L Normal 98-108 [facility] Comment on above: Performed By: #### L 500.4050, L100.0100 #### [facility] Laboratory [address] [place], [address] CO2 [Moles/Vol] 23.3 mmol/L Normal 21.0-32.0 [facility] Comment on above: Performed By: #### L 500.4050, L100.0100 #### [facility] Laboratory [address] [place], [address] Creatinine [Mass/Vol] 0.76 mg/dL Normal 0.70-1.20 [facility] Comment on above: Performed By: #### L 500.4050, L100.0100 #### [facility] Laboratory [address] [place], [address] GAP 9 Normal 5-15 [facility] Comment on above: Performed By: #### L 500.4050, L100.0100 #### [facility] Laboratory [address] [place], [address] GFR/1.73 sq M.predicted among non-blacks MDRD (S/P/Bld) [Vol rate/Area] 78 mL/min/{1.73_m2} Normal >60 [facility] Comment on above: Result Comment: mL/m in/1.73m2 CKD-EPI Creatinine Equation (2020) Performed By: #### L 500.4050, L100.0100 #### [facility] Laboratory [address] [place], [address] Globulin (S) [Mass/Vol] 2.6 g/dL Normal 2.2-4.2 [facility] Comment on above: Performed By: #### L 500.4050, L100.0100 #### [facility] Laboratory [address] [place], [address] Glucose [Mass/Vol] 98 mg/dL Normal 70-99 [facility] Comment on above: Performed By: #### L 500.4050, L100.0100 #### [facility] Laboratory [address] [place], [address] Potassium [Moles/Vol] 4.1 mmol/L Normal 3.3-5.1 [facility] Comment on above: Performed By: #### L 500.4050, L100.0100 #### [facility] Laboratory [address] [place], [address] Sodium [Moles/Vol] 137 mmol/L Normal 133-145 [facility] Comment on above: Performed By: #### L 500.4050, L100.0100 #### [facility] Laboratory [address] [place], [address] T PROT 6.7 g/dL Normal 5.9-8.4 [facility] Comment on above: Performed By: #### L 500.4050, L100.0100 #### [facility] Laboratory [address] [place], [address] Urea nitrogen [Mass/Vol] 13 mg/dL Normal 4-19 [facility] Comment on above: Performed By: #### L 500.4050, L100.0100 #### [facility] Laboratory [address] [place], [address] Eosinophil percentageOrdered By: Nelly Goff on 08-16-2024 Eosinophils/100 WBC (Bld) 3.0 % 0-5 [facility] Erythrocyte distribution wid th ratioOrdered By: Nelly Goff on 08-16-2024 Erythrocyte distribution width (RBC) [Ratio] 13.1 % 11.6-14.6 [facility] Erythrocyte distribution wid th standard deviationOrdered By: Nelly Goff on 08-16-2024 Erythrocyte distribution width (RBC) [Ratio] 43.3 fl 35.1-43.9 [facility] Glomerular filtration rate ( GFR) estimation/1.73 sq m using serum, plasma, or whole bOrdered By: Nelly Goff on 08-16-2024 GFR/1.73 sq M.predicted among non-blacks MDRD (S/P/Bld) [Vol rate/Area] 78 mL/min/{1.73_m2} >60 [facility] Comment on above: mL/min/1.73m2 CKD-EP I Creatinine Equation (2020) Hematocrit Auto (Bld) [Volum e fraction]Ordered By: Nelly Goff on 08-16-2024 Hematocrit (Bld) [Volume fraction] 44.4 % 37-47 [facility] Hemoglobin measurementOrdere d By: Nelly Goff on 08-16-2024 Hemoglobin (Bld) [Mass/Vol] 14.8 g/dL 12.0-15.0 [facility] Immature granulocytes/100 WB C Auto (Bld)Ordered By: Nelly Goff on 08-16-2024 Immature granulocytes/100 WBC (Bld) 0.400 % 0.0-0.9 [facility] Comment on above: IG% - Immature Granu locytes (promyelocytes, myelocytes and metamyelocytes) > 1% indicates that a LEFT SHIFT is Present. Laboratory - Chemistry and C hemistry - challengeOrdered By: Nelly Goff on 08-16-2024 AST [Catalytic activity/Vol] 25 U/L <32 [facility] MCV (mean corpuscular volume ) determinationOrdered By: Nelly Goff 08-16-2024 MCV (RBC) [Entitic vol] 90.8 fL 81-99 [facility] Mean corpuscular hemoglobin (MCH) determinationOrdered By: Nelly Goff 08-16-2024 MCH (RBC) [Entitic mass] 30.3 pg 27.0-32.0 [facility] Mean corpuscular hemoglobin concentration (MCHC) determinationOrdered By: Nelly Goff on 08-16-2024 MCHC (RBC) [Mass/Vol] 33.3 g/dL 32-36 [facility] Mean platelet volume determi nationOrdered By: Nelly Goff on 08-16-2024 Platelet mean volume (Bld) [Entitic vol] 12.5 fL High 6.2-12.0 [facility] Monocyte percentageOrdered B y: Nelly Goff on 08-16-2024 Monocytes/100 WBC (Bld) 8.3 % 0-10 [facility] Neutrophil percentageOrdered By: Nelly Goff on 08-16-2024 Neutrophils/100 WBC (Bld) 37.4 % Low 47-70 [facility] Nucleated red blood cell per centageOrdered By: Nelly Goff on 08-16-2024 Nucleated RBC/100 WBC (Bld) [Ratio] 0 % 0-5 [facility] Platelet countOrdered By: Zaid Goff on 08-16-2024 Platelets (Bld) [#/Vol] 175 10*3/uL 150-450 [facility] Potassium measurement (mass/ volume)Ordered By: Nelly Goff on 08-16-2024 Potassium (Unsp spec) [Mass/Vol] 4.1 mmol/L 3.3-5.1 [facility] RBC Auto (Bld) [#/Vol]Ordere d By: Nelly Goff on 08-16-2024 RBC (Bld) [#/Vol] 4.89 10*6/uL 4.2-5.4 [facility] Serum creatinine measurement (mass/volume)Ordered By: Nelly Goff on 08-16-2024 Creatinine [Mass/Vol] 0.76 mg/dL 0.70-1.20 [facility] Serum globulin measurementOr dered By: Nelly Goff on 08-16-2024 Globulin (S) [Mass/Vol] 2.6 g/dL 2.2-4.2 [facility] Serum glucose measurement (m ass/volume)Ordered By: Nelly Goff on 08-16-2024 Glucose [Mass/Vol] 98 mg/dL 70-99 [facility] Serum or plasma alanine mcdonald otransferase (ALT) measurementOrdered By: Nelly Goff on 08-16-2024 ALT [Catalytic activity/Vol] 15 U/L <35 [facility] Serum or plasma albumin guicho urement (mass/volume)Ordered By: Nelly Goff on 08-16-2024 Albumin [Mass/Vol] 4.1 g/dL 3.4-4.8 [facility] Serum or plasma albumin/glob ulin mass ratioOrdered By: Nelly Goff on 08-16-2024 Albumin/Globulin [Mass ratio] 1.6 {ratio} 0.9-2.4 [facility] Serum or plasma alkaline clarke sphatase measurementOrdered By: Nelly Goff on 08-16-2024 ALP [Catalytic activity/Vol] 59 U/L 35-104 [facility] Serum or plasma calcium guicho urement (mass/volume)Ordered By: Nelly Goff on 08-16-2024 Calcium [Mass/Vol] 9.4 mg/dL 7.6-11.0 [facility] Serum or plasma urea nitroge n measurement (mass/volume)Ordered By: Nelly Goff on 08-16-2024 Urea nitrogen [Mass/Vol] 13 mg/dL 4-19 [facility] Sodium levelOrdered By: Erik Goff on 08-16-2024 Sodium [Moles/Vol] 137 mmol/L 133-145 [facility] Total proteinOrdered By: Greg Goff on 08-16-2024 Protein [Mass/Vol] 6.7 g/dL 5.9-8.4 [facility] White blood cell (WBC) count Ordered By: Nelly Goff on 08-16-2024 WBC (Bld) [#/Vol] 5.7 10*3/uL 4.4-11.0 [facility] Absolute lymphocyte countOrd ered By: Nelly Goff on 05-26-2024 Lymphocytes Auto (Unsp spec) [#/Vol] 4.67 10*3/uL High 0.83-4.51 [facility] Absolute neutrophil countOrd ered By: Nelly Goff on 05-26-2024 Neutrophils (Bld) [#/Vol] 3.6 10*3/uL 2.0-7.7 [facility] Anion gap in Serum or Plasma Ordered By: Nelly Goff on 05-26-2024 Anion gap [Moles/Vol] 11 mmol/L 5-15 [facility] Automated lymphocyte count a s percentage of total leukocytesOrdered By: Nelly Goff on 05-26-2024 Lymphocytes/100 WBC Auto (Unsp spec) 50.5 % High 19-41 [facility] BUN/creatinine ratioOrdered By: [facility] on 05-26-2024 Urea nitrogen/Creatinine [Mass ratio] 23.3 mg/mg High 10-20 [facility] Basophil percentageOrdered B y: Nelly Goff on 05-26-2024 Basophils/100 WBC (Bld) 0.8 % 0-1 [facility] Bilirubin, totalOrdered By: Nellynic Goff on 05-26-2024 Bilirubin [Mass/Vol] 0.59 mg/dL Normal 0.00-1.30 [facility] Comment on above: Performed By: #### L 500.4050, L100.0100 #### [facility] Laboratory [address] [place], [address] CBC W/Diff, Automatedon 05-10 Absolute Lymph 4.67 X10 3/uL High 0.83-4.51 [facility] Comment on above: Performed By: #### L 500.4050, L100.0100 #### [facility] Laboratory [address] [place], [address] Absolute Neut 3.6 X10 3/uL Normal 2.0-7.7 [facility] Comment on above: Performed By: #### L 500.4050, L100.0100 #### [facility] Laboratory [address] [place], [address] Basophils/100 WBC (Bld) 0.8 % Normal 0-1 [facility] Comment on above: Performed By: #### L 500.4050, L100.0100 #### [facility] Laboratory [address] [place], [address] Eosinophils/100 WBC (Bld) 2.5 % Normal 0-5 [facility] Comment on above: Performed By: #### L 500.4050, L100.0100 #### [facility] Laboratory [address] [place], [address] Erythrocyte distribution width (RBC) [Ratio] 12.8 % Normal 11.6-14.6 [facility] Comment on above: Performed By: #### L 500.4050, L100.0100 #### [facility] Laboratory [address] [place], [address] Hematocrit (Bld) [Volume fraction] 47.5 % High 37-47 [facility] Comment on above: Performed By: #### L 500.4050, L100.0100 #### [facility] Laboratory [address] [place], [address] Hemoglobin (Bld) [Mass/Vol] 16.1 g/dL High 12.0-15.0 [facility] Comment on above: Performed By: #### L 500.4050, L100.0100 #### [facility] Laboratory [address] [place], [address] IG% 0.200 Normal 0.0-0.9 [facility] Comment on above: Result Comment: IG% - Immature Granulocytes (promyelocytes, myelocytes and metamyelocytes) > 1% indicates that a LEFT SHIFT is Present. Performed By: #### L 500.4050, L100.0100 #### [facility] Laboratory [address] [place], [address] Lymphocytes/100 WBC (Bld) 50.5 % High 19-41 [facility] Comment on above: Performed By: #### L 500.4050, L100.0100 #### [facility] Laboratory [address] [place], [address] MCH (RBC) [Entitic mass] 30.8 pg Normal 27.0-32.0 [facility] Comment on above: Performed By: #### L 500.4050, L100.0100 #### [facility] Laboratory [address] [place], [address] MCHC (RBC) [Mass/Vol] 33.9 g/dL Normal 32-36 [facility] Comment on above: Performed By: #### L 500.4050, L100.0100 #### [facility] Laboratory [address] [place], [address] MCV (RBC) [Entitic vol] 90.8 fL Normal 81-99 [facility] Comment on above: Performed By: #### L 500.4050, L100.0100 #### [facility] Laboratory [address] [place], [address] Monocytes/100 WBC (Bld) 7.7 % Normal 0-10 [facility] Comment on above: Performed By: #### L 500.4050, L100.0100 #### [facility] Laboratory [address] [place], [address] Neutrophils/100 WBC (Bld) 38.3 % Low 47-70 [facility] Comment on above: Performed By: #### L 500.4050, L100.0100 #### [facility] Laboratory [address] [place], [address] Nucleated RBC (Bld) [#/Vol] 0 10*3/uL Normal 0-5 [facility] Comment on above: Performed By: #### L 500.4050, L100.0100 #### [facility] Laboratory [address] [place], [address] Platelet mean volume (Bld) [Entitic vol] 11.9 fL Normal 6.2-12.0 [facility] Comment on above: Performed By: #### L 500.4050, L100.0100 #### [facility] Laboratory [address] [place], [address] Platelets (Bld) [#/Vol] 193 10*3/uL Normal 150-450 [facility] Comment on above: Performed By: #### L 500.4050, L100.0100 #### [facility] Laboratory [address] [place], [address] RBC (Bld) [#/Vol] 5.23 10*6/uL Normal 4.2-5.4 [facility] Comment on above: Performed By: #### L 500.4050, L100.0100 #### [facility] Laboratory [address] [place], [address] RDW SD 42.5 fl Normal 35.1-43.9 [facility] Comment on above: Performed By: #### L 500.4050, L100.0100 #### [facility] Laboratory [address] [place], [address] WBC (Bld) [#/Vol] 9.3 10*3/uL Normal 4.4-11.0 [facility] Comment on above: Performed By: #### L 500.4050, L100.0100 #### [facility] Laboratory [address] [place], [address] Carbon dioxide, total [Moles /volume] in Central venous bloodOrdered By: Nelly Goff on 05-26-2024 CO2 [Moles/Vol] 21.8 mmol/L Normal 21.0-32.0 [facility] Comment on above: Performed By: #### L 500.4050, L100.0100 #### [facility] Laboratory [address] [place], [address] Chloride assayOrdered By: Zaid Goff on 05-26-2024 Chloride [Moles/Vol] 105 mmol/L Normal 98-108 [facility] Comment on above: Performed By: #### L 500.4050, L100.0100 #### [facility] Laboratory [address] [place], [address] Comprehensive Metabolic Prof ilon 05-26-2024 ALK PHOS 80 U/L Normal 35-104 [facility] Comment on above: Performed By: #### L 500.4050, L100.0100 #### [facility] Laboratory [address] [place], [address] BUN/CRE 23.3 RATIO High 10-20 [facility] Comment on above: Performed By: #### L 500.4050, L100.0100 #### [facility] Laboratory [address] [place], [address] GAP 11 Normal 5-15 [facility] Comment on above: Performed By: #### L 500.4050, L100.0100 #### [facility] Laboratory [address] [place], [address] T PROT 7.2 g/dL Normal 5.9-8.4 [facility] Comment on above: Performed By: #### L 500.4050, L100.0100 #### [facility] Laboratory [address] [place], [address] Comprehensive Metabolic Prof ilOrdered By: Nelly Goff on 05-26-2024 AST [Catalytic activity/Vol] 23 U/L Normal <=31 [facility] Comment on above: Performed By: #### L 500.4050, L100.0100 #### [facility] Laboratory [address] [place], [address] Eosinophil percentageOrdered By: Nelly Goff on 05-26-2024 Eosinophils/100 WBC (Bld) 2.5 % 0-5 [facility] Erythrocyte distribution wid th (RBC) [Ratio]Ordered By: Nelly Goff on 05-26-2024 Erythrocyte distribution width (RBC) [Entitic vol] 42.5 fL 35.1-43.9 [facility] Erythrocyte distribution wid th ratioOrdered By: Nelly Goff on 05-26-2024 Erythrocyte distribution width (RBC) [Ratio] 12.8 % 11.6-14.6 [facility] Erythrocyte distribution wid th standard deviationOrdered By: Nelly Goff on 05-26-2024 Erythrocyte distribution width (RBC) [Ratio] 42.5 fl 35.1-43.9 [facility] GFR/1.73 sq M.predicted kathy g non-blacks MDRD (S/P/Bld) [Vol rate/Area]Ordered By: Nelly Goff on 05-26-2024 Estimated GFR (MDRD) Non-Af Amer 63 >60 [facility] Comment on above: mL/min/1.73m2 CKD-EP I Creatinine Equation (2020) Glomerular filtration rate ( GFR) estimation/1.73 sq m using serum, plasma, or whole bOrdered By: Nelly Goff on 05-26-2024 GFR/1.73 sq M.predicted among non-blacks MDRD (S/P/Bld) [Vol rate/Area] 63 mL/min/{1.73_m2} Normal >60 [facility] Comment on above: mL/min/1.73m2 CKD-EP I Creatinine Equation (2020) Result Comment: mL/m in/1.73m2 CKD-EPI Creatinine Equation (2020) Performed By: #### L 500.4050, L100.0100 #### [facility] Laboratory [address] [place] [address], [address] Hematocrit Auto (Bld) [Volum e fraction]Ordered By: Nelly Goff on 05-26-2024 Hematocrit (Bld) [Volume fraction] 47.5 % High 37-47 [facility] Hemoglobin measurementOrdere d By: Nelly Goff on 05-26-2024 Hemoglobin (Bld) [Mass/Vol] 16.1 g/dL High 12.0-15.0 [facility] Immature granulocytes/100 WB C Auto (Bld)Ordered By: Nelly Goff on 05-26-2024 Immature granulocytes/100 WBC (Bld) 0.200 % 0.0-0.9 [facility] Comment on above: IG% - Immature Granu locytes (promyelocytes, myelocytes and metamyelocytes) > 1% indicates that a LEFT SHIFT is Present. Lymphocytes Auto (Unsp spec) [#/Vol]Ordered By: Nelly Goff on 05-26-2024 Lymphocytes (Bld) [#/Vol] 4.67 10*3/uL High 0.83-4.51 [facility] Lymphocytes/100 WBC Auto (Un sp spec)Ordered By: Nelly Goff on 05-26-2024 Lymphocytes/100 WBC (Bld) 50.5 % High 19-41 [facility] MCV (mean corpuscular volume ) determinationOrdered By: Nelly Goff on 05-26-2024 MCV (RBC) [Entitic vol] 90.8 fL 81-99 [facility] Mean corpuscular hemoglobin (MCH) determinationOrdered By: Nelly Goff on 05-26-2024 MCH (RBC) [Entitic mass] 30.8 pg 27.0-32.0 [facility] Mean corpuscular hemoglobin concentration (MCHC) determinationOrdered By: Nelly Goff on 05-26-2024 MCHC (RBC) [Mass/Vol] 33.9 g/dL 32-36 [facility] Mean platelet volume determi nationOrdered By: Nelly Goff on 05-26-2024 Platelet mean volume (Bld) [Entitic vol] 11.9 fL 6.2-12.0 [facility] Monocyte percentageOrdered B y: Nelly Goff on 05-26-2024 Monocytes/100 WBC (Bld) 7.7 % 0-10 [facility] Neutrophil percentageOrdered By: Nelly Goff on 05-26-2024 Neutrophils/100 WBC (Bld) 38.3 % Low 47-70 [facility] Nucleated red blood cell per centageOrdered By: Nelly Goff on 05-26-2024 Nucleated RBC/100 WBC (Bld) [Ratio] 0 % 0-5 [facility] Platelet countOrdered By: Zaid Goff on 05-26-2024 Platelets (Bld) [#/Vol] 193 10*3/uL 150-450 [facility] Potassium measurement (mass/ volume)Ordered By: Nelly Goff on 05-26-2024 Potassium (Unsp spec) [Mass/Vol] 4.6 mmol/L 3.3-5.1 [facility] Comment on above: Hemolysis present, R esults could be affected. Potassium [Moles/Vol] 4.6 mmol/L Normal 3.3-5.1 [facility] Comment on above: Hemolysis present, R esults could be affected. Result Comment: Hemo lysis present, Results??could be affected. ?? Performed By: #### L 500.4050, L100.0100 #### [facility] Laboratory [address] [place], [address] RBC Auto (Bld) [#/Vol]Ordere d By: Nelly Goff on 05-26-2024 RBC (Bld) [#/Vol] 5.23 10*6/uL 4.2-5.4 [facility] Serum creatinine measurement (mass/volume)Ordered By: Nelly Goff on 05-26-2024 Creatinine [Mass/Vol] 0.91 mg/dL Normal 0.70-1.20 [facility] Comment on above: Performed By: #### L 500.4050, L100.0100 #### [facility] Laboratory [address] [place], [address] Serum globulin measurementOr dered By: Nelly Goff on 05-26-2024 Globulin (S) [Mass/Vol] 3.0 g/dL Normal 2.2-4.2 [facility] Comment on above: Performed By: #### L 500.4050, L100.0100 #### [facility] Laboratory [address] [place], [address] Serum glucose measurement (m ass/volume)Ordered By: Nelly Goff on 05-26-2024 Glucose [Mass/Vol] 97 mg/dL Normal 70-99 [facility] Comment on above: Performed By: #### L 500.4050, L100.0100 #### [facility] Laboratory [address] [place], [address] Serum or plasma alanine mcdonald otransferase (ALT) measurementOrdered By: Nelly Goff on 04-17-2025 ALT [Catalytic activity/Vol] 15 U/L Normal <=34 [facility] Comment on above: Performed By: #### L 500.4050, L100.0100 #### [facility] Laboratory [address] [place], [address] Serum or plasma albumin guicho urement (mass/volume)Ordered By: Nelly Goff on 05-26-2024 Albumin [Mass/Vol] 4.2 g/dL Normal 3.4-4.8 [facility] Comment on above: Performed By: #### L 500.4050, L100.0100 #### [facility] Laboratory [address] [place], [address] Serum or plasma albumin/glob ulin mass ratioOrdered By: Nelly Goff on 05-26-2024 Albumin/Globulin [Mass ratio] 1.4 {ratio} Normal 0.9-2.4 [facility] Comment on above: Performed By: #### L 500.4050, L100.0100 #### [facility] Laboratory [address] [place], [address] Serum or plasma alkaline clarke sphatase measurementOrdered By: Nelly Goff on 05-26-2024 ALP [Catalytic activity/Vol] 80 U/L 35-104 [facility] Serum or plasma calcium guicho urement (mass/volume)Ordered By: Nelly Goff on 05-26-2024 Calcium [Mass/Vol] 9.6 mg/dL Normal 7.6-11.0 [facility] Comment on above: Performed By: #### L 500.4050, L100.0100 #### [facility] Laboratory [address] [place], [address] Serum or plasma urea nitroge n measurement (mass/volume)Ordered By: Nelly Goff on 05-26-2024 Urea nitrogen [Mass/Vol] 21 mg/dL High 4-19 [facility] Comment on above: Performed By: #### L 500.4050, L100.0100 #### [facility] Laboratory [address] [place], [address] Sodium levelOrdered By: Erik Goff on 05-26-2024 Sodium [Moles/Vol] 138 mmol/L Normal 133-145 [facility] Comment on above: Performed By: #### L 500.4050, L100.0100 #### [facility] [address] [place], [address] Total proteinOrdered By: Greg Goff on 05-26-2024 Protein [Mass/Vol] 7.2 g/dL 5.9-8.4 [facility] White blood cell (WBC) count Ordered By: Nelly Goff on 05-26-2024 WBC (Bld) [#/Vol] 9.3 10*3/uL 4.4-11.0 [facility] .GFRon 04-18-2024 Estimated Glomerular Filtration Rate 62 ml/min/1.73sqm Normal [facility] Comment on above: Result Comment: Stages of Chronic Kidney Disease (CKD) Stage Description eGFR(ml/min/1.73 sq.m.) CKD 1 Normal kidney function or >=90 normal kindney function with possible kidney damage (ex. Proteinuria) CKD 2 Kidney damage with mild loss 60-89 of kidney function CKD 3a Mild to moderate loss of kidney 45-59 function CKD 3b Moderate to severe loss of 30-44 of kindey function CKD 4 Severe loss of kidney function 15-29 CKD 5 Kidney failure <15 Note: (go live 2024) the eGFR calculation was updated to the 2020 CKD-EPI creatinine equation without a race factor to calculate the eGFR results. Performed By: #### T SH, LIPID, A1C, GFR, CMP ####[facility] [place], [place] [address] A1Con 04-18-2024 Glucose [Mass/Vol] 91 mg/dL Normal [facility] Comment on above: Result Comment: Krystin mated Average Glucose calculated by equation ((28.7xA1C)-46.7) Estimated average glucose (eAG) is a calculated value from Hemoglobin A1C and is sales representative canvas products of the average blood glucose level in the last 2-3 month period. Normal range: less than 114 mg/dL Performed By: #### T SH, LIPID, A1C, GFR, CMP ####[facility] [place], [place] [address] HbA1c (Bld) [Mass fraction] 4.8 % Normal 4.3-6.4 [facility] Comment on above: Performed By: #### T SH, LIPID, A1C, GFR, CMP ####[facility] [place], [place] [address] BD BONE DENSITY DEXA AXIAL S Kurt 04-18-2024 BD BONE DENSITY DEXA AXIAL SKELETON ORIGINAL EXAMINATION: BONE DENSITOMETRY 04/18/2024 11:51 am TECHNIQUE: A bone density dual x-ray absorptiometry (DEXA) scan was performed of the axial (e.g. hips, spine) and/or appendicular (e.g. radius) skeleton as appropriate. COMPARISON: None HISTORY: ORDERING SYSTEM PROVIDED HISTORY: Reason for Exam: Osteoporosis Screening FINDINGS: T Score Left Femoral Neck: -3.8 Left Femoral Neck: 0.428 (g/cm2) T Score Left Hip: -3.4 Left Hip: 0.529 (g/cm2) T Score Lumbar Spine: -2.8 Lumbar Spine: 0.741 (g/cmd2) IMPRESSION: Osteoporosis by WHO criteria. World Health Organization criteria: (Comparing with young normal sex matched population) - Normal: T-score at or above -1 SD (standard deviation) - Osteopenia: T-score between -1 and -2.5 SD - Osteoporosis: T-score at or below -2.5 SD The NOF recommends that FDA-approved medical therapies be considered in post-menopausal women and men age >/= 50 years with a: * Hip or vertebral fracture, or * T-score of /= 20% for major osteoporotic fractures or * >/= 3% for hip fractures All treatment decisions require clinical judgement and consideration of individual patient factors, including patient preferences, comorbidities, previous drug use, risk factors not captured in the FRAX registered model (e.g., frailty, falls, vitamin D deficiency, increased bone turnover, interval significant decline in bone density) and possible under- or over-estimation of fracture risk by FRAX. Interpreted by: Davin Morris DO Preliminary Report By: Davin Morris DO Electronically signed By Davin Morris DO Dictated Date: 04/18/2024 1:29:31 PM Prelim Date: 04/18/2024 1:30:34 PM Sign Date: 04/18/2024 1:30:34 PM Ordering Provider: TOBIAS Mondragon [facility] CMPon 04-18-2024 Albumin Level 3.9 G/dL Normal 3.4-4.8 [facility] Comment on above: Performed By: #### T SH, LIPID, A1C, GFR, CMP ####[facility] [place], [place] [address] Albumin/Globulin [Mass ratio] 1.2 {ratio} Normal 1.1-2.5 [facility] Comment on above: Performed By: #### T SH, LIPID, A1C, GFR, CMP ####[place] [address] [place], [place] [address] ALP [Catalytic activity/Vol] 78 U/L Normal 40-135 [facility] Comment on above: Performed By: #### T SH, LIPID, A1C, GFR, CMP ####[address] [address] ALT [Catalytic activity/Vol] 16 U/L Normal 14-59 [facility] Comment on above: Performed By: #### T SH, LIPID, A1C, GFR, CMP ####[facility] [place], [place] [address] AST [Catalytic activity/Vol] 20 U/L Normal 10-40 [facility] Comment on above: Performed By: #### T SH, LIPID, A1C, GFR, CMP ####[facility] [place], [place] [address] Bili Total 0.9 mg/dL Normal 0.2-1.0 [facility] Comment on above: Result Comment: Use of this assay is not recommended for patients undergoing treatment with eltrombopag due to the potential for falsely elevated results. Performed By: #### T SH, LIPID, A1C, GFR, CMP ####[place] [place], [place] [address] BUN/Creatinine Ratio 17 ratio Normal 7-27 [facility] Comment on above: Performed By: #### T GOLDY, LIPID, A1C, GFR, CMP ####[facility] [address] [place], [place] [address] Calcium [Mass/Vol] 10.1 mg/dL Normal 8.4-10.2 [facility] Comment on above: Performed By: #### T GOLDY, LIPID, A1C, GFR, CMP ####[facility] [address] [place], [place] [address] Chloride [Moles/Vol] 103 mmol/L Normal 98-107 [facility] Comment on above: Performed By: #### T GOLDY, LIPID, A1C, GFR, CMP ####[facility] [address] [place] [address] CO2 [Moles/Vol] 26 mmol/L Normal 23-31 [facility] Comment on above: Performed By: #### T GOLDY, LIPID, A1C, GFR, CMP ####[facility] [address] [place] [id number] Creatinine [Mass/Vol] 0.92 mg/dL Normal 0.55-1.02 [facility] Comment on above: Result Comment: Test ing performed on Siemens Dimension EXL analyzer using a modified kinetic Krys technique. Performed By: #### T GOLDY, LIPID, A1C, GFR, CMP ####[facility] [address] [place], [place] [address] Electrolyte Balance 7.0 mEq/L Normal 4.0-15.0 [facility] Comment on above: Performed By: #### T SH, LIPID, A1C, GFR, CMP ####[facility] [address] [place], [place] [address] Globulin 3.3 G/dL Normal 1.5-3.8 [facility] Comment on above: Performed By: #### T SH, LIPID, A1C, GFR, CMP ####[facility] [address] [place], [place] [address] Glucose [Mass/Vol] 110 mg/dL Normal 83-110 [facility] Comment on above: Performed By: #### T SH, LIPID, A1C, GFR, CMP ####[facility] [address] [place], [place] [address] Potassium [Moles/Vol] 4.7 mmol/L Normal 3.5-5.1 [facility] Comment on above: Performed By: #### T SH, LIPID, A1C, GFR, CMP ####[facility] [address] [place], [place] [address] Sodium [Moles/Vol] 136 mmol/L Normal 136-145 [facility] Comment on above: Performed By: #### T SH, LIPID, A1C, GFR, CMP ####[facility] [address] [place], [place] [address] Total Protein 7.2 G/dL Normal 6.4-8.2 [facility] Comment on above: Performed By: #### T SH, LIPID, A1C, GFR, CMP ####[address] [address] [place], [place] [address] Urea nitrogen [Mass/Vol] 16 mg/dL Normal 7-18 [facility] Comment on above: Performed By: #### T SH, LIPID, A1C, GFR, CMP ####[facility] [address] [place], [place] [address] LIPIDon 04-18-2024 Cholesterol [Mass/Vol] 139 mg/dL Normal 0-200 [facility] Comment on above: Result Comment: Chol esterol Reference Interval: Less than 200 Desirable 200-239 Borderline high risk 240 and above High risk Performed By: #### T SH, LIPID, A1C, GFR, CMP ####[facility] [address] [place], [place] [address] Cholesterol in HDL [Mass/Vol] 65 mg/dL High 40-60 [facility] Comment on above: Performed By: #### T SH, LIPID, A1C, GFR, CMP ####[facility] [address] [place], [place] [address] Cholesterol in LDL [Mass/Vol] 65 mg/dL Normal 0-130 [facility] Comment on above: Performed By: #### T SH, LIPID, A1C, GFR, CMP ####[facility] [address] [place], [place] [address] Triglyceride [Mass/Vol] 44 mg/dL Normal 0-150 [facility] Comment on above: Result Comment: Trig lyceride Reference Interval: Less than 150 Normal 150-199 Borderline high risk 200-499 High risk 500 or higher Very high risk Performed By: #### T SH, LIPID, A1C, GFR, CMP ####[address] [place], [place] [address] Lumbar Spine 2 or 3 Viewson 04-18-2024 Lumbar Spine 2 or 3 Views [facility] [address] [place], [place] [id number] Lumbar Spine 2 or 3 Views MR#: [id number] Acct: [id number] Name: JOANN SANCHEZ Rep #: [id number] : 1940 F 84 From: Hector Burden MD PCP: Dr. Tobias Tboar DO Status: REG CLI Study: Lumbar Spine 2 or 3 Views Date of Exam: Exam# [id number] Ordering Dr: Zeny Snyder MD EXAM: XR Lumbosacral Spine, 2 or 3 Views CLINICAL INDICATION: TECHNIQUE: Frontal and lateral views of the lumbar spine and sacrum. COMPARISON: No relevant prior studies available. FINDINGS: VERTEBRAE: Moderate facet arthropathy of L4-S1. No acute fracture. Normal alignment. SACRUM/COCCYX: Unremarkable as visualized. No acute fracture. DISC SPACES: No acute findings. No significant narrowing. SOFT TISSUES: Unremarkable. RAD/Lumbar Spine 2 or 3 Views IMPRESSION: Degenerative changes as above. Reading Location: [facility] CC: Dr. Zeny Snyder MD; Dr. Tobias Tobar DO Cruise Director: Signed Normal [facility] TSHon 04-18-2024 TSH Qn 2.27 m[IU]/L Normal 0.36-3.74 [facility] Comment on above: Performed By: #### T SH, LIPID, A1C, GFR, CMP ####[address] [place], [place] [address] Magnetic resonance imaging r eportOrdered By: Hesham Small on 04-17-2024 Study report [facility] [address] [place] [address] Spine Thoracic (Routine) MR#: [id number] Acct: [id number] Name: JOANN SANCHEZ Rep #: [id number] : 1940 F 84 From: Bola Small DO PCP: Dr. Tobias Tobar, DO Status: REG C LI Study:Spine Thoracic (Routine) Date of Exam: 04/16/24 Exam# [id number] Ordering Dr: Jose Snyder MD PROCEDURE: MRI SPINE THORACIC (ROUTINE) REASON FOR EXAM: Back pain. TECHNIQUE: Noncontrast thoracic spine MRI. COMPARISON: Thoracic spine x-ray from 03/09/2024. FINDINGS: There is a severe compression fracture of T11 with loss of height at approximately 70% with associated bone marrow edema and likely on a subacute basis. There is retropulsion of the superior endplate of T11 by approximately 6.5 mm with associated mass effect on the ventral spinal cord resulting in moderate to severe central canal stenosis as well as bilateral neural foraminal narrowing. No abnormal cord signal is identified. The remaining thoracic vertebral bodies maintain a normal height. There are Schmorl's nodes involving the inferior endplates of T9 and T10. Multilevel anterior endplate spurring is present. There is diminished signal intensity involving the discs of the thoracic spinal cord relating to degenerative disc disease. Paraspinous musculature is unremarkable. Selected individual levels: T8-T9: Small left central disc protrusion with no significant central canal stenosis or neural foraminal narrowing. T11-T12: Left central disc protrusion superimposed on a disc bulge results in aprh-js-cwcehsot central canal stenosis. There is left neural foraminal narrowing. Right neural foramina is patent. T12-L1: Right subarticular disc extrusion with mild inferior migration superimposed on a disc bulge as well as facet/flavum hypertrophy results in mild central canal stenosis and narrowing of the right lateral recess. No significant neural foraminal narrowing. MRI/Spine Thoracic (Routine) IMPRESSION: 1. Severe anterior wedge compression fracture of T11 with loss of height at approximately 70% with bone marrow edema likely on a subacute basis. There is retropulsion of the superior endplate of T11 resultingin moderate to severe central canal stenosis as well as bilateral neural foraminal narrowing. 2. Multilevel disc protrusions as above with qxbx-ws-ihcccdib central canal stenosis at T11-T12 and mild central canal stenosis at T12-L1 as well as neural foraminal narrowing. 3. No abnormal cord signal. [facility] CC: Dr. Zeny Snyder MD; Dr. Tobias Tobar DO ~ Cruise Director: Signed [facility] Spine Thoracic (Routine)on 0 04-16-2024 Spine Thoracic (Routine) [facility] [address] [place] [address] Spine Thoracic (Routine) MR#: [id number] Acct: [id number] Name: JOANN SANCHEZ Rep #: [id number] : 1940 F 84 From: Hesham Small DO PCP: Dr. Tobias Tobar DO Status: REG CLI Study: Spine Thoracic (Routine) Date of Exam: Exam# [id number] Ordering Dr: Zeny Snyder MD PROCEDURE: MRI SPINE THORACIC (ROUTINE) REASON FOR EXAM: Back pain. TECHNIQUE: Noncontrast thoracic spine MRI. COMPARISON: Thoracic spine x-ray from 03/09/2024. FINDINGS: There is a severe compression fracture of T11 with loss of height at approximately 70% with associated bone marrow edema and likely on a subacute basis. There is retropulsion of the superior endplate of T11 by approximately 6.5 mm with associated mass effect on the ventral spinal cord resulting in moderate to severe central canal stenosis as well as bilateral neural foraminal narrowing. No abnormal cord signal is identified. The remaining thoracic vertebral bodies maintain a normal height. There are Schmorl's nodes involving the inferior endplates of T9 and T10. Multilevel anterior endplate spurring is present. There is diminished signal intensity involving the discs of the thoracic spinal cord relating to degenerative disc disease. Paraspinous musculature is unremarkable. Selected individual levels: T8-T9: Small left central disc protrusion with no significant central canal stenosis or neural foraminal narrowing. T11-T12: Left central disc protrusion superimposed on a disc bulge results in rtjr-cg-hiefdlbq central canal stenosis. There is left neural foraminal narrowing. Right neural foramina is patent. T12-L1: Right subarticular disc extrusion with mild inferior migration superimposed on a disc bulge as well as facet/flavum hypertrophy results in mild central canal stenosis and narrowing of the right lateral recess. No significant neural foraminal narrowing. MRI/Spine Thoracic (Routine) IMPRESSION: 1. Severe anterior wedge compression fracture of T11 with loss of height at approximately 70% with bone marrow edema likely on a subacute basis. There is retropulsion of the superior endplate of T11 resulting in moderate to severe central canal stenosis as well as bilateral neural foraminal narrowing. 2. Multilevel disc protrusions as above with jsck-lm-dfnhnqpf central canal stenosis at T11-T12 and mild central canal stenosis at T12-L1 as well as neural foraminal narrowing. 3. No abnormal cord signal. [facility] CC: Dr. Zeny Snyder MD; Dr. Tobias Tobar DO Cruise Director: Signed Normal [facility] CNCOon 04-01-2024 CNCO Letter Text Normal [facility] Quantiferon TB-Gold+on 03-14 QFT MITOGEN CAM > 10.00 Normal . [facility] Comment on above: Performed By: #### L 500.4050, L100.0100 #### [facility] [address] [place], [place], [id number] QFT NIL VALUE 0.09 IU/mL Normal . [facility] Comment on above: Performed By: #### L 500.4050, L100.0100 #### [facility] [address] [facility] [address] [place], [place], [id number] QFT TB GOLD+ Comment Normal . [facility] Comment on above: Result Comment: Ibrahima tiFERON-TB Gold Plus is a qualitative indirect test for M tuberculosis infection (including disease) and is intended for use in conjunction with risk assessment, radiography, and other medical and diagnostic evaluations. The QuantiFERON-TB Gold Plus result is determined by subtracting the Nil value from either TB antigen (Ag) value. The Mitogen tube serves as a control for the test. Performed By: #### L 500.4050, L100.0100 #### [facility] [address] [facility]. [place], [place], [id number] ([address]) QFT TB POS CRIT Negative Normal Negative [facility] Comment on above: Result Comment: No r esponse to M tuberculosis antigens detected. Infection with M tuberculosis is unlikely, but high risk individuals should be considered for additional testing (ATS/IDSA/CDC Clinical Practice Guidelines, 2017). The reference range is an Antigen minus Nil result of <0.35 IU/mL. The specimen received for QuantiFERON testing was incubated by the ordering institution. Specific procedures outlined in our Directory of Services and in the package insert for the QuantiFERON Gold (In Tube) test must be followed to enable for proper stimulation of cells for the production of interferon gamma. Chemiluminescence immunoassay methodology Performed at: [facility] [address] [id number] Printing Mechanist: Reggie Finch PhD, Phone: [phone] Performed By: #### L 500.4050, L100.0100 #### [facility] [address] [facility] [place], [address] QFT TB1+ AG CAM 0.09 IU/mL Normal . [facility] Comment on above: Performed By: #### L 500.4050, L100.0100 #### [facility] [address] [facility] [place], [address] QFT TB2+ AG CAM 0.12 IU/mL Normal . [facility] Comment on above: Performed By: #### L 500.4050, L100.0100 #### [facility] [address] [facility] [place], [address] M. tuberculosis tuberculin s van IFN-g Ql (Bld)Ordered By: Nelly Goff on 03-11-2024 TB Test (QFT) Antigen 1 0.09 IU/mL . [facility] Quantiferon-TB Gold Plus júnior tOrdered By: Nelly Goff on 03-11-2024 TB Test (QFT) Comment . [facility] Comment on above: QuantiFERON-TB Gold Plus is a qualitative indirect test forM tuberculosis infection (including disease) and isintended for use in conjunction with risk assessment,radiography, and other medical and diagnostic evaluations.The QuantiFERON-TB Gold Plus result is determined bysubtracting the Nil value from either TB antigen (Ag)value. The Mitogen tube serves as a control for the test. TB Test (QFT) Antigen 2 0.12 IU/mL . [facility] TB Test (QFT) Mitogen > 10.00 IU/mL . [facility] TB Test (QFT) Nil 0.09 IU/mL . [facility] TB Test (QFT) Positive Criteria Negative Negative [facility] Comment on above: No response to M tub erculosis antigens detected.Infection with M tuberculosis is unlikely, but high riskindividuals should be considered for additional testing(ATS/IDSA/CDC Clinical Practice Guidelines, 2017). Thereference range is an Antigen minus Nil result of <0.35IU/mL.The specimen received for QuantiFERON testing was incubatedby the ordering institution. Specific procedures outlinedin our Directory of Services and in the package insert forthe QuantiFERON Gold (In Tube) test must be followed toenable for proper stimulation of cells for the productionof interferon gamma. Chemiluminescence immunoassaymethodologyPerformed at: [facility] [id number] Director: Reggie Finch PhD, Phone: [phone] Albumin to globulin ratioOrd ered By: Nelly Goff on 03-09-2024 Albumin/Globulin [Mass ratio] 0.7 {ratio} Low 0.9-2.4 [facility] Bilirubin, totalOrdered By: Nelly Goff on 03-09-2024 Bilirubin [Mass/Vol] 1.40 mg/dL High 0.20-1.00 [facility] Comment on above: For patients on eltr ombopag therapy, use of Dimension [place] TBIL is not recommended. Blood urea nitrogen (BUN)/cr eatinine ratioOrdered By: Nelly Goff on 03-09-2024 Urea nitrogen/Creatinine [Mass ratio] 17.5 mg/mg 10-20 [facility] Carbon dioxide measurementOr dered By: Nelly Goff on 03-09-2024 CO2 [Moles/Vol] 26.0 mmol/L 21.0-32.0 [facility] Chloride measurementOrdered By: Nelly Goff on 03-09-2024 Chloride [Moles/Vol] 104 mmol/L 98-107 [facility] Comprehensive Metabolic Prof ilon 03-09-2024 Albumin [Mass/Vol] 3.1 g/dL Low 3.2-5.0 [facility] Comment on above: Performed By: #### L 500.4050 #### [facility] [address] [place], [address] Albumin/Globulin [Mass ratio] 0.7 {ratio} Low 0.9-2.4 [facility] Comment on above: Performed By: #### L 500.4050 #### [facility] [address] [place], [address] ALK P 94 U/L Normal 45-117 [facility] Comment on above: Performed By: #### L 500.4050 #### [facility] [address] [place], [address] ALT [Catalytic activity/Vol] 21 U/L Normal 13-56 [facility] Comment on above: Performed By: #### L 500.4050 #### [facility] [address] [place], [address] AST [Catalytic activity/Vol] 17 U/L Normal 15-37 [facility] Comment on above: Performed By: #### L 500.4050 #### [facility] [address] [place], [address] Bilirubin [Mass/Vol] 1.40 mg/dL High 0.20-1.00 [facility] Comment on above: Result Comment: For patients on eltrombopag therapy, use of Dimension [place] TBIL is not recommended. Performed By: #### L 500.4050 #### [facility] [address] [place], [address] BUN/CRE 17.5 RATIO Normal 10-20 [facility] Comment on above: Performed By: #### L 500.4050 #### [facility] [address] [place], [address] CA,Total 9.5 mg/dL Normal 8.5-10.1 [facility] Comment on above: Performed By: #### L 500.4050 #### [facility] [address] [place], [address] Chloride [Moles/Vol] 104 mmol/L Normal 98-107 [facility] Comment on above: Performed By: #### L 500.4050 #### [facility] [address] [place], [address] CO2 [Moles/Vol] 26.0 mmol/L Normal 21.0-32.0 [facility] Comment on above: Performed By: #### L 500.4050 #### [facility] [address] [place], [address] Creatinine [Mass/Vol] 0.80 mg/dL Normal 0.55-1.02 [facility] Comment on above: Result Comment: The validity of the calculated GFR GFRAA in patients over 70 years has not been determined. Clinical correlation is essential. Performed By: #### L 500.4050 #### [facility] [address] [place], [address] EST GFR - AA 88 mL/min Normal >60 [facility] Comment on above: Result Comment: Afri can [place] GFR Calc Performed By: #### L 500.4050 #### [facility] [address] [place], [address] GAP 7 Normal 5-15 [facility] Comment on above: Performed By: #### L 500.4050 #### [facility] [address] [place], [address] GFR/1.73 sq M.predicted among non-blacks MDRD (S/P/Bld) [Vol rate/Area] 73 mL/min/{1.73_m2} Normal >60 [facility] Comment on above: Result Comment: Non- GFR Calc Performed By: #### L 500.4050 #### [facility] [facility] [address] [place], [address] Globulin (S) [Mass/Vol] 4.2 g/dL Normal 2.2-4.2 [facility] Comment on above: Performed By: #### L 500.4050 #### [facility] [address] [place], [address] Glucose [Mass/Vol] 95 mg/dL Normal 74-106 [facility] Comment on above: Performed By: #### L 500.4050 #### [facility] [address] [place], [address] Potassium [Moles/Vol] 4.2 mmol/L Normal 3.5-5.1 [facility] Comment on above: Performed By: #### L 500.4050 #### [facility] [address] [place], [address] Sodium [Moles/Vol] 137 mmol/L Normal 136-145 [facility] Comment on above: Performed By: #### L 500.4050 #### [facility] [address] [place], [address] T PROT 7.3 g/dL Normal 6.4-8.2 [facility] Comment on above: Performed By: #### L 500.4050 #### [facility] [address] [place], [address] Urea nitrogen [Mass/Vol] 14 mg/dL Normal 7-18 [facility] Comment on above: Performed By: #### L 500.4050 #### [facility] [address] [place], [place], [address] Estimated glomerular filtrat ion rate (GFR) AmericanOrdered By: Nelly Goff on 03-09-2024 Estimated GFR (MDRD) Amer 88 mL/min >60 [facility] Comment on above: GFR Calc Glomerular filtration rate ( GFR) estimationOrdered By: [facility] on 03-09-2024 Estimated GFR (MDRD) Non-Af Amer 73 mL/min >60 [facility] Comment on above: Non- GFR Calc Glucose measurementOrdered B y: Nelly Goff on 03-09-2024 Glucose [Mass/Vol] 95 mg/dL 74-106 [facility] - Chemistry and C hemistry - challengeOrdered By: Nellynic Goff on 03-09-2024 AST [Catalytic activity/Vol] 17 U/L 15-37 [facility] Lumbar Spine 2 or 3 Viewson 03-09-2024 Lumbar Spine 2 or 3 Views [facility] [address] [place], [place] [address] Lumbar Spine 2 or 3 Views MR#: [id number] Acct: [id number] Name: JOANN SANCHEZ Rep #: [id number] : 1940 F 84 From: Davin Garsia PCP: Dr. Hector Costello MD Status: REG CLI Study: Lumbar Spine 2 or 3 Views Date of Exam: Exam# [id number] Ordering Dr: Gera Okeefe PROCEDURE: LUMBAR SPINE 2 OR 3 VIEWS REASON FOR EXAM: Back pain. TECHNIQUE: 2 view(s) of the lumbar spine COMPARISON: None. RAD/Lumbar Spine 2 or 3 Views IMPRESSION: Prominent arterial calcification is seen mild degenerative changes are seen throughout the lumbar spine, most prominently at L5-S1, where at least moderate disc space narrowing is noted. Lower lumbar posterior facet hypertrophy is also seen. No evidence of spondylolysis or significant degree of spondylolisthesis. A thoracolumbar area of dextroscoliosis is centered about the T12 level. Mild symmetric sacroiliac joint degenerative changes are seen. No lumbar fracture site is identified. Reading Location: [address] CC: Dr. Hector Costello MD; ZAID Bernabe Cruise Director: Signed Normal [facility] Potassium measurementOrdered By: Nelly Goff on 03-09-2024 Potassium [Moles/Vol] 4.2 mmol/L 3.5-5.1 [facility] Serum anion gap measurementO rdered By: Nelly Goff on 03-09-2024 Anion gap [Moles/Vol] 7 mmol/L 5-15 [facility] Serum globulin measurementOr dered By: Nelly Goff on 03-09-2024 Globulin (S) [Mass/Vol] 4.2 g/dL 2.2-4.2 [facility] Serum or plasma alanine mcdonald otransferase (ALT) measurementOrdered By: Nelly Goff on 03-09-2024 ALT [Catalytic activity/Vol] 21 U/L 13-56 [facility] Serum or plasma albumin guicho urement (mass/volume)Ordered By: Nelly Goff on 03-09-2024 Albumin [Mass/Vol] 3.1 g/dL Low 3.2-5.0 [facility] Serum or plasma alkaline clarke sphatase measurementOrdered By: Nelly Goff on 03-09-2024 ALP [Catalytic activity/Vol] 94 U/L 45-117 [facility] Serum or plasma calcium guicho urement (mass/volume)Ordered By: Nelly Goff on 03-09-2024 Calcium [Mass/Vol] 9.5 mg/dL 8.5-10.1 [facility] Serum or plasma creatinine m easurement (mass/volume)Ordered By: Nelly Goff on 03-09-2024 Creatinine [Mass/Vol] 0.80 mg/dL 0.55-1.02 [facility] Comment on above: The validity of the calculated GFR & GFRAA in patients over 70 years has not been determined. Clinical correlation is essential. Serum or plasma urea nitroge n measurement (mass/volume)Ordered By: Nelly Goff on 03-09-2024 Urea nitrogen [Mass/Vol] 14 mg/dL 7-18 [facility] Sodium levelOrdered By: Erik Goff on 03-09-2024 Sodium [Moles/Vol] 137 mmol/L 136-145 [facility] Thoracic Spine 3 Viewson Thoracic Spine 3 Views [facility] [address] [place] [address] Thoracic Spine 3 Views MR#: [id number] Acct: [id number] Name: JOANN SANCHEZ Rep #: [id number] : 1940 F 84 From: Davin Garsia PCP: Dr. Hector Costello MD Status: REG CLI Study: Thoracic Spine 3 Views Date of Exam: 03/09/24 Exam# [id number] Ordering Dr: Gera Okeefe PROCEDURE: THORACIC SPINE 3 VIEWS REASON FOR EXAM: Back pain TECHNIQUE: Three-view AP and lateral thoracic spine series COMPARISON: None. RAD/Thoracic Spine 3 Views IMPRESSION: Limited imaging of the cervical spine shows moderate to moderately severe degenerative changes, greatest at C4-C5 and C5-C6 levels. Mild thoracic kyphosis is seen. A moderately severe wedge compression Fracture at the lower thoracic spine is seen,, likely representing the T10 vertebral body, without significant subluxation appreciated. Otherwise, mild degenerative disc disease is noted. Also, thoracic dextroscoliosis is seen, centered about the T10 level. Reading Location: [id number] CC: Dr. Hector Costello MD; ZAID Bernabe Cruise Director: Signed Normal [facility] Total proteinOrdered By: Greg Goff on 03-09-2024 Protein [Mass/Vol] 7.3 g/dL 6.4-8.2 [facility] Urgent Care Visit Reporton 0 1-29-2025 Urgent Care Visit Report [facility] [address], [address] [place] [address] OFFICE VISIT Date of Service: 03/09/24 MR#: [id number] Acct: [id number] Name: JOANN SANCHEZ Rep #: [id number] : 1940 Provider: ZAID Bernabe Age/Sex: 84/F Location: [facility] [place] Status: Signed Intake Vital Signs 03/12/21 11:02 03/09/24 14:14 Height 5 ft 1.81 in BP 152/84 H Blood Pressure Location Rt brachial Position Sitting Respiration 17 Pulse 72 Pulse Source NIBP Temp 98.1 F Temp Source Oral Pulse Oximetry (%) 95 Oxygen Delivery Method room air Intake Visit Reasons: BACK PAIN/POST FALL X2WKS PRIOR Chief Complaint: back pain Industrial Designer Required: No Is patient in pain?: Yes Allergies No Known Allergies Allergy (Verified 03/09/24 14:10) Is last menstrual period known: No Post menopausal: Yes Patient : No Have you fallen in the past year?: Yes Nurse's Note: fall approx 2 weeks ago, pt cannot recall how she fell or landed. c/o spinal pain from bra strap thru low back. ambulates with assistance per her normal. denies additional complaints. [facility] Medical History (Updated 03/09/24 @ 15:52 by Gera MAR, PA) Compression fracture of T10 vertebra Acute lumbar myofascial strain Thoracic myofascial strain Rheumatic arthritis of temporomandibular joint Pulmonary embolism Former smoker Osteoporosis Rheumatoid arthritis Family History Mother No problems noted. Father Cancer liver Social History household members: spouse housing: house Smoking Status: Current every day smoker tobacco type: cigarettes Electronic Cigarette Use: with nicotine alcohol intake: never substance use type: does not use HPI HPI Chief Complaint: back pain Details: JOANN SANCHEZ, is a 84 F who presents to the office today for [facility] status post trip fall backwards landing on mid lower back on 02/22/2024 at home. Patient states while exiting the restroom excellently tripped/fall onto the same. She noted no head/neck injuries and no LOC/nausea/vomiting or chest pain/shortness of breath/dyspnea on exertion at time of injury or since. She notes no caudal or lower extremity radicular complaints at time of injury or since. Due to the persistence of mild to moderate aching discomfort to the same she is requesting evaluation here. She has been performing her ADLs with minimal to no difficulty since the date of the injury. She notes no other complaints at this time. PMH: Rheumatoid arthritis, stating she follows up with rheumatology at [facility]; next follow-up appointment with rheumatology scheduled for 03/11/2024 ROS Const Constitutional: No other (As above) Exam Const General: cooperative, healthy appearing and no acute distress Orientation: alert and awake HENMT Head: normal to inspection Ears: hearing grossly normal bilaterally and external ears normal Nose: external nose normal and no nasal discharge Neck Neck: normal visual inspection and full ROM Chest Chest palpation inspection: normal inspection of the chest Resp Effort Inspection: normal respiratory effort and able to speak in complete sentences Cardio Rate: regular rate Pulses: radial pulses present GI Inspection: normal to inspection Musc Thoracic/Lumbar Spine: thor and lumb spine abnorm to inspection (Thoracic scoliosis appreciated upon inspection), thoraco-lumbar ROM normal, paraspinal tenderness bilaterally in the mid thoracic, in the lower thoracic, in the upper lumbar and in the mid lumbar, no thoracic spinal tenderness and no lumbar spinal tenderness Skin General: no rashes or lesions noted Neuro General: patient alert and patient awake Cognition: normal cognition Speech: speech normal Extrem General: normal to inspection Psych Appearance: grossly normal Mental Status: mental status grossly normal Mood: congruent mood Affect: normal affect Speech and Movement: speech and movement normal Attitude: cooperative Coding Level of Care Code Off vis,est,level 4 Diagnoses Compression fracture of T10 vertebra S22.070A Acute lumbar myofascial strain S39.012A Assessment and Plan Assessment and Plan (1) Compression fracture of T10 vertebra: Status: Acute (2) Acute lumbar myofascial strain: Status: Acute Plan: Thoracic and lumbar radiographs taken today reveal T10 compression facture, pending radiologist interpretation at time patient discharge. Prednisone as prescribed today per pt preference. Supportive measures including home range of motion exercises as instructed today. Ortho-spine referral placed for first available appointment. Keep follow-up appointment with rheumatology on 03/11 (more content not included)... Normal [facility] .Auto Diffon 02-21-2024 Basophil, Absolute 0.1 10 3/mcL Normal 0.0-0.2 [facility] Comment on above: Performed By: #### T ROPHS, ADIFF, CBC, CMP, ANEU, MDW, GFR #### [address] [address] Basophils/100 WBC (Bld) 0.9 % Normal 0.0-2.5 [facility] Comment on above: Performed By: #### T ROPHS, ADIFF, CBC, CMP, ANEU, MDW, GFR #### [address] [address] Eosinophil, Absolute 0.1 10 3/mcL Normal 0.0-0.7 [facility] Comment on above: Performed By: #### T ROPHS, ADIFF, CBC, CMP, ANEU, MDW, GFR #### [address] [address] Eosinophils/100 WBC (Bld) 0.7 % Normal 0.0-7.0 [facility] Comment on above: Performed By: #### T ROPHS, ADIFF, CBC, CMP, ANEU, MDW, GFR #### [address] [address] Lymphocyte, Absolute 1.3 10 3/mcL Normal 0.9-4.3 [facility] Comment on above: Performed By: #### T ROPHS, ADIFF, CBC, CMP, ANEU, MDW, GFR #### [address] [address] Lymphocytes/100 WBC (Bld) 16.8 % Low 20.0-40.0 [facility] Comment on above: Performed By: #### T ROPHS, ADIFF, CBC, CMP, ANEU, MDW, GFR #### [address] [address] Monocyte, Absolute 0.9 10 3/mcL Normal 0.1-1.4 [facility] Comment on above: Performed By: #### T ROPHS, ADIFF, CBC, CMP, ANEU, MDW, GFR #### [address] [address] Monocytes/100 WBC (Bld) 11.4 % Normal 2.0-13.0 [facility] Comment on above: Performed By: #### T ROPHS, ADIFF, CBC, CMP, ANEU, MDW, GFR #### [address] [address] Neutrophils/100 WBC (Bld) 70.2 % Normal 50.0-75.0 [facility] Comment on above: Performed By: #### T ROPHS, ADIFF, CBC, CMP, ANEU, MDW, GFR #### [address] [address] .GFRon 02-21-2024 GFR 68 ml/min/1.73sqm [facility] Comment on above: Result Comment: GFR Population mean for , Non- Americans Ages 20-29 = 116 mL/min/1.73 sq.m. Ages 30-39 = 107 mL/min/1.73 sq.m. Ages 40-49 = 99 mL/min/1.73 sq.m. Ages 50-59 = 93 mL/min/1.73 sq.m. Ages 60-69 = 85 mL/min/1.73 sq.m. Ages 70+ = 75 mL/min/1.73 sq.m. Chronic Kidney Disease: Less than 60 mL/min/1.73 square meters End Stage Renal Disease: Less than 15 mL/min/1.73 square meters Performed By: #### T ROPHS, ADIFF, CBC, CMP, ANEU, MDW, GFR #### [address] [address] GFR Non- 56 ml/min/1.73sqm Normal [facility] Comment on above: Result Comment: GFR Population mean for , Non- Americans Ages 20-29 = 116 mL/min/1.73 sq.m. Ages 30-39 = 107 mL/min/1.73 sq.m. Ages 40-49 = 99 mL/min/1.73 sq.m. Ages 50-59 = 93 mL/min/1.73 sq.m. Ages 60-69 = 85 mL/min/1.73 sq.m. Ages 70+ = 75 mL/min/1.73 sq.m. Chronic Kidney Disease: Less than 60 mL/min/1.73 square meters End Stage Renal Disease: Less than 15 mL/min/1.73 square meters Performed By: #### T LINK, ADIFF, CBC, CMP, ANEU, MDW, GFR #### [address] [address] .MDWon 02-21-2024 Monocyte Distribution Width 19.45 Normal 0.00-20.00 [facility] Comment on above: Result Comment: For ED adult patients suspected of sepsis, MDW<=20.0 does not rule out sepsis or risk of sepsis Performed By: #### T LINK, ADIFF, CBC, CMP, ANEU, MDW, GFR #### [address] [address] .NEUABSon 02-21-2024 Neutrophil, Absolute 5.3 10 3/mcL Normal 2.3-8.1 [facility] Comment on above: Performed By: #### T LINK, ADIFF, CBC, CMP, ANEU, MDW, GFR #### [address] [address] CBCon 02-21-2024 Erythrocyte distribution width (RBC) [Ratio] 13.2 % Normal 11.5-15.5 [facility] Comment on above: Performed By: #### T LINK, ADIFF, CBC, CMP, ANEU, MDW, GFR #### [place] [address] Hematocrit (Bld) [Volume fraction] 41.4 % Normal 34.0-46.0 [facility] Comment on above: Performed By: #### T LINK, ADIFF, CBC, CMP, ANEU, MDW, GFR #### [place] [address] Hgb 14.4 G/dL Normal 12.0-16.0 [facility] Comment on above: Performed By: #### T LINK, ADIFF, CBC, CMP, ANEU, MDW, GFR #### [address] [address] MCH (RBC) [Entitic mass] 31.3 pg Normal 27.0-33.0 [facility] Comment on above: Performed By: #### T ROPHS, ADIFF, CBC, CMP, ANEU, MDW, GFR #### [place] [address] MCHC 34.7 G/dL Normal 32.0-36.0 [facility] Comment on above: Performed By: #### T ANATOLYHS, ADIFF, CBC, CMP, ANEU, MDW, GFR #### [place] [address] MCV (RBC) [Entitic vol] 90.0 fL Normal 80.0-99.0 [facility] Comment on above: Performed By: #### T ANATOLYHS, ADIFF, CBC, CMP, ANEU, MDW, GFR #### [place] [address] Platelet 189 10 3/mcL Normal 150-450 [facility] Comment on above: Performed By: #### T LINK, ADIFF, CBC, CMP, ANEU, MDW, GFR #### [place] [id number] Platelet mean volume (Bld) [Entitic vol] 8.8 fL Normal 6.6-10.5 [facility] Comment on above: Performed By: #### T ROPHS, ADIFF, CBC, CMP, ANEU, MDW, GFR #### [place] [id number] RBC 4.61 10 6/mcL Normal 4.10-5.30 [facility] Comment on above: Performed By: #### T ROPHS, ADIFF, CBC, CMP, ANEU, MDW, GFR #### [place] [id number] WBC 7.6 10 3/mcL Normal 4.5-10.8 [facility] Comment on above: Performed By: #### T LINK, ADIFF, CBC, CMP, ANEU, MDW, GFR #### [address] [address] CMPon 02-21-2024 Albumin Level 3.8 G/dL Normal 3.4-4.8 [facility] Comment on above: Performed By: #### T ROPHS, ADIFF, CBC, CMP, ANEU, MDW, GFR #### [address] [address] Albumin/Globulin [Mass ratio] 1.2 {ratio} Normal 1.1-2.5 [facility] Comment on above: Performed By: #### T LINK, ADIFF, CBC, CMP, ANEU, MDW, GFR #### [place] [id number] ALP [Catalytic activity/Vol] 76 U/L Normal 40-135 [facility] Comment on above: Performed By: #### T LINK, ADIFF, CBC, CMP, ANEU, MDW, GFR #### [address] [address] ALT [Catalytic activity/Vol] 31 U/L Normal 14-59 [facility] Comment on above: Performed By: #### T LINK, ADIFF, CBC, CMP, ANEU, MDW, GFR #### [address] [address] AST [Catalytic activity/Vol] 27 U/L Normal 10-40 [facility] Comment on above: Performed By: #### T LINK, ADIFF, CBC, CMP, ANEU, MDW, GFR #### [address] [address] Bili Total 1.0 mg/dL Normal 0.2-1.0 [facility] Comment on above: Result Comment: Use of this assay is not recommended for patients undergoing treatment with eltrombopag due to the potential for falsely elevated results. Performed By: #### T ROPHS, ADIFF, CBC, CMP, ANEU, MDW, GFR #### [address] [address] BUN/Creatinine Ratio 17 ratio Normal 7-27 [facility] Comment on above: Performed By: #### T ROPHS, ADIFF, CBC, CMP, ANEU, MDW, GFR #### [address] [address] Calcium [Mass/Vol] 9.4 mg/dL Normal 8.4-10.2 [facility] Comment on above: Performed By: #### T ROPHS, ADIFF, CBC, CMP, ANEU, MDW, GFR #### [place] [address] Chloride [Moles/Vol] 102 mmol/L Normal 98-107 [facility] Comment on above: Performed By: #### T ROPHS, ADIFF, CBC, CMP, ANEU, MDW, GFR #### [place] [phone] CO2 [Moles/Vol] 26 mmol/L Normal 23-31 [facility] Comment on above: Performed By: #### T ROPHS, ADIFF, CBC, CMP, ANEU, MDW, GFR #### [address] [address] Creatinine [Mass/Vol] 0.95 mg/dL Normal 0.55-1.02 [facility] Comment on above: Result Comment: Test ing performed on Siemens Dimension EXL analyzer using a modified kinetic Krys technique. Performed By: #### T ROPHS, ADIFF, CBC, CMP, ANEU, MDW, GFR #### [place] [address] Electrolyte Balance 8.0 mEq/L Normal 4.0-15.0 [facility] Comment on above: Performed By: #### T ROPHS, ADIFF, CBC, CMP, ANEU, MDW, GFR #### [place] [address] Globulin 3.2 G/dL Normal [facility] Comment on above: Performed By: #### T ROPHS, ADIFF, CBC, CMP, ANEU, MDW, GFR #### [address] [address] Glucose [Mass/Vol] 118 mg/dL High 83-110 [facility] Comment on above: Performed By: #### T ROPHS, ADIFF, CBC, CMP, ANEU, MDW, GFR #### [address] [address] Potassium [Moles/Vol] 4.5 mmol/L Normal 3.5-5.1 [facility] Comment on above: Performed By: #### T ROPHS, ADIFF, CBC, CMP, ANEU, MDW, GFR #### [address] [address] Sodium [Moles/Vol] 136 mmol/L Normal 136-145 [facility] Comment on above: Performed By: #### T ROPHS, ADIFF, CBC, CMP, ANEU, MDW, GFR #### [address] [address] Total Protein 7.0 G/dL Normal 6.4-8.2 [facility] Comment on above: Performed By: #### T ROPHS, ADIFF, CBC, CMP, ANEU, MDW, GFR #### [address] [address] Urea nitrogen [Mass/Vol] 16 mg/dL Normal 7-18 [facility] Comment on above: Performed By: #### T ROPHS, ADIFF, CBC, CMP, ANEU, MDW, GFR #### [address] [address] [address] HEAD OR BRAIN W/O CONTRAS Ton 02-21-2024 CT HEAD OR BRAIN W/O CONTRAST ORIGINAL EXAMINATION: CT OF THE HEAD WITHOUT CONTRAST 02/21/2024 7:29 pm TECHNIQUE: CT of the head was performed without the administration of intravenous contrast. Automated exposure control, iterative reconstruction, and/or weight based adjustment of the mA/kV was utilized to reduce the radiation dose to as low as reasonably achievable. COMPARISON: CT head November 01, 2021 HISTORY: ORDERING SYSTEM PROVIDED HISTORY: Reason for Exam: Confusion FINDINGS: BRAIN/VENTRICLES: There is no acute intracranial hemorrhage, mass effect or midline shift. No abnormal extra-axial fluid collection. The jimenez-white differentiation is maintained without evidence of an acute infarct. There is no evidence of hydrocephalus. There are nonspecific hypoattenuating foci in the subcortical and periventricular white matter that most likely represent chronic microangiopathic ischemic changes in a patient of this age. Parenchymal volume loss. ORBITS: The visualized portion of the orbits demonstrate no acute abnormality. SINUSES: The visualized paranasal sinuses and mastoid air cells demonstrate no acute abnormality. SOFT TISSUES/SKULL: No acute abnormality of the visualized skull. IMPRESSION: No acute intracranial abnormality. Interpreted by: Marko Daniel Preliminary Report By: Marko Daniel Electronically signed By Marko Daniel Dictated Date: 02/21/2024 7:35:38 PM Prelim Date: 02/21/2024 7:37:12 PM Sign Date: 02/21/2024 7:37:12 PM Ordering Provider: KATEY Mondragon [facility] LABORATORYOrdered By: SYSTEM SYSTEM on 02-21-2024 Albumin BCP dye [Mass/Vol] 3.8 G/dL Normal 3.4 - 4.8 G/dL AO ADM SS Albumin/Globulin [Mass ratio] 1.2 {ratio} Normal 1.1 - 2.5 ratio AO ADM SS ALP [Catalytic activity/Vol] 76 U/L Normal 40 - 135 U/L AO ADM SS ALT With P-5'-P [Catalytic activity/Vol] 31 U/L Normal 14 - 59 U/L AO ADM SS AST With P-5'-P [Catalytic activity/Vol] 27 U/L Normal 10 - 40 U/L AO ADM SS Basophils (Bld) [#/Vol] 0.1 103/mcL Normal 0.0 - 0.2 10^3/mcL AO Workflow SS Basophils/100 WBC (Bld) 0.9 % Normal 0.0 - 2.5 % AO Workflow SS Bilirubin [Mass/Vol] 1.0 mg/dL Normal 0.2 - 1 .0 mg/dL AO ADM SS Comment on above: Interpretive Data: U se of this assay is not recommended for patients undergoing treatment with eltrombopag due to the potential for falsely elevated results. Calcium [Mass/Vol] 9.4 mg/dL Normal 8.4 - 10. 2 mg/dL AO ADM SS Chloride [Moles/Vol] 102 mmol/L Normal 98 - 10 7 mmol/L AO ADM SS CO2 [Moles/Vol] 26 mmol/L Normal 23 - 31 mmol/L AO ADM SS Creatinine [Mass/Vol] 0.95 mg/dL Normal 0.55 - 1.02 mg/dL AO ADM SS Comment on above: Interpretive Data: T esting performed on Siemens Dimension EXL analyzer using a modified kinetic Krys technique. Electrolyte Balance 8.0 mEq/L Normal 4.0 - 15 .0 mEq/L AO ADM SS Eosinophil, Absolute 0.1 103/mcL Normal 0.0 - 0 .7 10^3/mcL AO Workflow SS Eosinophils/100 WBC (Bld) 0.7 % Normal 0.0 - 7.0 % AO Workflow SS Erythrocyte distribution width (RBC) [Ratio] 13.2 % Normal 11.5 - 15.5 % AO Workflow SS GFR/1.73 sq M.predicted among blacks MDRD (S/P/Bld) [Vol rate/Area] 68 ml/min/1.73sqm Invalid Interpretation Code AO Chemistry S Comment on above: Interpretive Data: GFR Population mean for , Non- Americans Ages 20-29 = 116 mL/min/1.73 sq.m. Ages 30-39 = 107 mL/min/1.73 sq.m. Ages 40-49 = 99 mL/min/1.73 sq.m. Ages 50-59 = 93 mL/min/1.73 sq.m. Ages 60-69 = 85 mL/min/1.73 sq.m. Ages 70+ = 75 mL/min/1.73 sq.m. Chronic Kidney Disease: Less than 60 mL/min/1.73 square meters End Stage Renal Disease: Less than 15 mL/min/1.73 square meters GFR/1.73 sq M.predicted among non-blacks MDRD (S/P/Bld) [Vol rate/Area] 56 ml/min/1.73sqm Invalid Interpretation Code AO Chemistry S Comment on above: Interpretive Data: GFR Population mean for , Non- Americans Ages 20-29 = 116 mL/min/1.73 sq.m. Ages 30-39 = 107 mL/min/1.73 sq.m. Ages 40-49 = 99 mL/min/1.73 sq.m. Ages 50-59 = 93 mL/min/1.73 sq.m. Ages 60-69 = 85 mL/min/1.73 sq.m. Ages 70+ = 75 mL/min/1.73 sq.m. Chronic Kidney Disease: Less than 60 mL/min/1.73 square meters End Stage Renal Disease: Less than 15 mL/min/1.73 square meters Globulin 3.2 G/dL Invalid Interpretation Code AO ADM SS Glucose [Mass/Vol] 118 mg/dL High 83 - 110 mg/dL AO ADM SS Hematocrit (Bld) [Volume fraction] 41.4 % Normal 34.0 - 46.0 % AO Workflow SS Hemoglobin (Bld) [Mass/Vol] 14.4 G/dL Normal 12.0 - 16.0 G/dL AO Workflow SS Lymphocytes (Bld) [#/Vol] 1.3 103/mcL Normal 0.9 - 4.3 10^3/mcL AO Workflow SS Lymphocytes/100 WBC (Bld) 16.8 % Low 20.0 - 40.0 % AO Workflow SS MCH (RBC) [Entitic mass] 31.3 pg Normal 27.0 - 33.0 pg AO Workflow SS MCHC 34.7 G/dL Normal 32.0 - 36.0 G/dL AO Workflow SS MCV (RBC) [Entitic vol] 90.0 fL Normal 80.0 - 99.0 fL AO Workflow SS Monocyte distribution width Auto (Bld) [Entitic vol] 19.45 1 Normal 0.00 - 20.00 AO Workflow SS Comment on above: Result Comment: For ED adult patients suspected of sepsis, MDW<=20.0 does not rule out sepsis or risk of sepsis Monocytes (Bld) [#/Vol] 0.9 103/mcL Normal 0.1 - 1.4 10^3/mcL AO Workflow SS Monocytes/100 WBC (Bld) 11.4 % Normal 2.0 - 13.0 % AO Workflow SS Neutrophils (Bld) [#/Vol] 5.3 103/mcL Normal 2.3 - 8.1 10^3/mcL AO Workflow SS Neutrophils/100 WBC (Bld) 70.2 % Normal 50.0 - 75.0 % AO Workflow SS Platelet mean volume (Bld) [Entitic vol] 8.8 fL Normal 6.6 - 10.5 fL AO Workflow SS Platelets (Bld) [#/Vol] 189 103/mcL Normal 150 - 450 10^3/mcL AO Workflow SS Potassium [Moles/Vol] 4.5 mmol/L Normal 3.5 - 5.1 mmol/L AO ADM SS Protein [Mass/Vol] 7.0 G/dL Normal 6.4 - 8.2 G/dL AO ADM SS RBC (Bld) [#/Vol] 4.61 106/mcL Normal 4.10 - 5.30 10^6/mcL AO Workflow SS Sodium [Moles/Vol] 136 mmol/L Normal 136 - 145 mmol/L AO ADM SS Troponin I.cardiac DL <= 0.01 ng/mL [Mass/Vol] 27 ng/L Normal 0 - 51 ng/L AO ADM SS Comment on above: Interpretive Data: H igh Sensitive Troponin I Reference Ranges: Female: 0-51 ng/L Male: 0-76 ng/L Testing performed on [employer] using a homogeneous sandwich chemiluminescent immunoassay based on [employer] technology. Urea nitrogen [Mass/Vol] 16 mg/dL Normal 7 - 18 mg/dL AO ADM SS Urea nitrogen/Creatinine [Mass ratio] 17 ratio Normal 7 - 27 ratio AO ADM SS WBC (Bld) [#/Vol] 7.6 103/mcL Normal 4.5 - 10.8 10^3/mcL AO Workflow SS LABORATORYOrdered By: Gina Ortiz on 02-21-2024 Appearance (U) Clear (02/21/24 6:47 PM) Normal Clear AO Auto Urine SS Bilirubin Ql (U) Negative (02/21/24 6:47 PM) Normal Negative AO Auto Urine SS Color (U) Yellow (02/21/24 6:47 PM) Normal AO Auto Urine SS Glucose Test strip (U) [Mass/Vol] Negative Normal Negative AO Auto Urine SS Hemoglobin Auto test strip (U) [Mass/Vol] Trace *ABN* (02/21/24 6:47 PM) Invalid Interpretation Code Negative AO Auto Urine SS Ketones Ql (U) Trace mg/dL Invalid Interpretation Code Negative AO Auto Urine SS UA Leuk Est Negative (02/21/24 6:47 PM) Normal Negative AO Auto Urine SS UA Nitrite Negative (02/21/24 6:47 PM) Normal Negative AO Auto Urine SS UA pH 7.0 (02/21/24 6:47 PM) Normal 5.0 - 8.0 AO Auto Urine SS UA Protein Negative Normal Negative AO Auto Urine SS UA Spec Grav 1.025 (02/21/24 6:47 PM) Normal 1.015-1.02 5 AO Auto Urine SS UA Specimen Type Void (02/21/24 6:47 PM) Normal AO Auto Urine SS UA Urobilinogen 1.0 E.U./dL Normal 0.2-1.0 AO Auto Urine SS TROPHSon 02-21-2024 High Sensitivity Troponin I 27 ng/L Normal 0-51 [facility] Comment on above: Result Comment: High Sensitive Troponin I Reference Ranges: Female: 0-51 ng/L Male: 0-76 ng/L Testing performed on [employer] using a homogeneous sandwich chemiluminescent immunoassay based on [employer] technology. Performed By: #### T SIA MAZA, CBC, CMP, ANEU, MDW, GFR #### [place] [id number] UAon 02-21-2024 Color (U) Yellow Normal [facility] Comment on above: Performed By: #### U A #### [address] [address] Glucose (U) [Mass/Vol] Negative Normal Negative [facility] Comment on above: Performed By: #### U A #### [address] [address] Ketones Ql (U) Trace Abnormal Negative [facility] Comment on above: Performed By: #### U A #### [address] [address] UA Appear Clear Normal Clear [facility] Comment on above: Performed By: #### U A #### [address] [address] UA Blood Trace Abnormal Negative [facility] Comment on above: Performed By: #### U A #### [address] [address] UA Leuk Est Negative Normal Negative [facility] Comment on above: Performed By: #### U A #### [place] [id number] UA Nitrite Negative Normal Negative [facility] Comment on above: Performed By: #### U A #### [place] [id number] UA pH 7.0 Normal 5.0 - 8.0 [facility] Comment on above: Performed By: #### U A #### [place] [id number] UA Protein Negative Normal Negative [facility] Comment on above: Performed By: #### U A #### [place] [address] UA Spec Grav 1.025 Normal 1.015-1.02 5 [facility] Comment on above: Performed By: #### U A #### [place] [address] UA Specimen Type Void Normal [facility] Comment on above: Performed By: #### U A #### [place] [address] UA Urobilinogen 1.0 E.U./dL Normal 0.2-1.0 [facility] Comment on above: Performed By: #### U A #### [place] [address] Urobilinogen (U) [Mass/Vol] Negative Normal Negative [facility] Comment on above: Performed By: #### U A #### [place] [id number] XR CHEST 1 VIEWon 02-21-2024 XR CHEST 1 VIEW ORIGINAL EXAMINATION: ONE XRAY VIEW OF THE CHEST 02/21/2024 7:28 pm COMPARISON: Radiograph of the chest November 27, 2022 HISTORY: ORDERING SYSTEM PROVIDED HISTORY: Reason for Exam: Altered mental status FINDINGS: Cardiomediastinal silhouette is unchanged in size. Costophrenic angles are sharp. No radiographic pneumothorax. Similar appearing interstitial markings. Left upper lobe calcified granulomas. Osseous structures grossly unchanged. IMPRESSION: No focal consolidation. Interpreted by: Marko Daniel Preliminary Report By: Marko Daniel Electronically signed By Marko Daniel Dictated Date: 02/21/2024 7:37:22 PM Prelim Date: 02/21/2024 7:37:55 PM Sign Date: 02/21/2024 7:37:55 PM Ordering Provider: KATEY KUMARI [facility] Absolute neutrophil countOrd ered By: Nelly Goff on 02-05-2024 Neutrophils (Bld) [#/Vol] 2.9 10*3/uL 2.0-7.7 [facility] Albumin to globulin ratioOrd ered By: Nelly Goff on 02-05-2024 Albumin/Globulin [Mass ratio] 0.9 {ratio} 0.9-2.4 [facility] Basophil percentageOrdered B y: Nelly Goff on 02-05-2024 Basophils/100 WBC (Bld) 1.0 % 0-1 [facility] Bilirubin, totalOrdered By: Nelly Goff on 02-05-2024 Bilirubin [Mass/Vol] 0.80 mg/dL 0.20-1.00 [facility] Comment on above: For patients on eltr ombopag therapy, use of Dimension [place] TBIL is not recommended. Blood urea nitrogen (BUN)/cr eatinine ratioOrdered By: Nelly Goff on 02-05-2024 Urea nitrogen/Creatinine [Mass ratio] 13.4 mg/mg 10-20 [facility] CBC W/Diff, Automatedon 01-10 Absolute Lymph 2.30 X10 3/uL Normal 0.83-4.51 [facility] Comment on above: Performed By: #### L 500.4050, L100.0100 #### [facility] [address] [place], [address] Absolute Neut 2.9 X10 3/uL Normal 2.0-7.7 [facility] Comment on above: Performed By: #### L 500.4050, L100.0100 #### [facility] [address] [place], [address] Basophils/100 WBC (Bld) 1.0 % Normal 0-1 [facility] Comment on above: Performed By: #### L 500.4050, L100.0100 #### [facility] [address] [place], [address] Eosinophils/100 WBC (Bld) 3.6 % Normal 0-5 [facility] Comment on above: Performed By: #### L 500.4050, L100.0100 #### [facility] [address] [place], [address] Erythrocyte distribution width (RBC) [Ratio] 12.7 % Normal 11.6-14.6 [facility] Comment on above: Performed By: #### L 500.4050, L100.0100 #### [facility] [address] [place], [address] Hematocrit (Bld) [Volume fraction] 45.0 % Normal 37-47 [facility] Comment on above: Performed By: #### L 500.4050, L100.0100 #### [facility] [address] [place], [address] Hemoglobin (Bld) [Mass/Vol] 14.9 g/dL Normal 12.0-15.0 [facility] Comment on above: Performed By: #### L 500.4050, L100.0100 #### [facility] [address] [place], [address] IG% 0.500 Normal 0.0-0.9 [facility] Comment on above: Result Comment: IG% - Immature Granulocytes (promyelocytes, myelocytes and metamyelocytes) > 1% indicates that a LEFT SHIFT is Present. Performed By: #### L 500.4050, L100.0100 #### [facility] [address] [place], [address] Lymphocytes/100 WBC (Bld) 38.1 % Normal 19-41 [facility] Comment on above: Performed By: #### L 500.4050, L100.0100 #### [facility] [address] [place], [address] MCH (RBC) [Entitic mass] 30.7 pg Normal 27.0-32.0 [facility] Comment on above: Performed By: #### L 500.4050, L100.0100 #### [facility] [address] [place], [address] MCHC (RBC) [Mass/Vol] 33.1 g/dL Normal 32-36 [facility] Comment on above: Performed By: #### L 500.4050, L100.0100 #### [facility] [address] [place], [address] MCV (RBC) [Entitic vol] 92.6 fL Normal 81-99 [facility] Comment on above: Performed By: #### L 500.4050, L100.0100 #### [facility] [address] [place], [address] Monocytes/100 WBC (Bld) 9.3 % Normal 0-10 [facility] Comment on above: Performed By: #### L 500.4050, L100.0100 #### [facility] [address] [place], [address] Neutrophils/100 WBC (Bld) 47.5 % Normal 47-70 [facility] Comment on above: Performed By: #### L 500.4050, L100.0100 #### [facility] [address] [place], [address] Nucleated RBC (Bld) [#/Vol] 0 10*3/uL Normal 0-5 [facility] Comment on above: Performed By: #### L 500.4050, L100.0100 #### [facility] [address] [place], [address] Platelet mean volume (Bld) [Entitic vol] 11.5 fL Normal 6.2-12.0 [facility] Comment on above: Performed By: #### L 500.4050, L100.0100 #### [facility] [address] [place], [address] Platelets (Bld) [#/Vol] 243 10*3/uL Normal 150-450 [facility] Comment on above: Performed By: #### L 500.4050, L100.0100 #### [facility] [address] [place], [address] RBC (Bld) [#/Vol] 4.86 10*6/uL Normal 4.2-5.4 [facility] Comment on above: Performed By: #### L 500.4050, L100.0100 #### [facility] [address] [place], [address] RDW SD 43.0 fl Normal 35.1-43.9 [facility] Comment on above: Performed By: #### L 500.4050, L100.0100 #### [facility] [address] [place], [address] WBC (Bld) [#/Vol] 6.0 10*3/uL Normal 4.4-11.0 [facility] Comment on above: Performed By: #### L 500.4050, L100.0100 #### [facility] [address] [place], [address] Carbon dioxide measurementOr dered By: Nelly Goff on 02-05-2024 CO2 [Moles/Vol] 29.0 mmol/L 21.0-32.0 [facility] Chloride measurementOrdered By: Nelly Goff on 02-05-2024 Chloride [Moles/Vol] 106 mmol/L 98-107 [facility] Comprehensive Metabolic Prof ilon 02-05-2024 Albumin [Mass/Vol] 3.5 g/dL Normal 3.2-5.0 [facility] Comment on above: Performed By: #### L 500.4050, L100.0100 #### [facility] [address] [place], [address] Albumin/Globulin [Mass ratio] 0.9 {ratio} Normal 0.9-2.4 [facility] Comment on above: Performed By: #### L 500.4050, L100.0100 #### [facility] [address] [place], [address] ALK P 70 U/L Normal 45-117 [facility] Comment on above: Performed By: #### L 500.4050, L100.0100 #### [facility] [address] [place], [address] ALT [Catalytic activity/Vol] 29 U/L Normal 13-56 [facility] Comment on above: Performed By: #### L 500.4050, L100.0100 #### [facility] [address] [place], [address] AST [Catalytic activity/Vol] 20 U/L Normal 15-37 [facility] Comment on above: Performed By: #### L 500.4050, L100.0100 #### [facility] [address] [place], [address] Bilirubin [Mass/Vol] 0.80 mg/dL Normal 0.20-1.00 [facility] Comment on above: Result Comment: For patients on eltrombopag therapy, use of Dimension [place] TBIL is not recommended. Performed By: #### L 500.4050, L100.0100 #### [facility] [address] [place], [address] BUN/CRE 13.4 RATIO Normal 10-20 [facility] Comment on above: Performed By: #### L 500.4050, L100.0100 #### [facility] [address] [place], [address] CA,Total 9.7 mg/dL Normal 8.5-10.1 [facility] Comment on above: Performed By: #### L 500.4050, L100.0100 #### [facility] [address] [place], [address] Chloride [Moles/Vol] 106 mmol/L Normal 98-107 [facility] Comment on above: Performed By: #### L 500.4050, L100.0100 #### [facility] [address] [place], [address] CO2 [Moles/Vol] 29.0 mmol/L Normal 21.0-32.0 [facility] Comment on above: Performed By: #### L 500.4050, L100.0100 #### [facility] [address] [place], [address] Creatinine [Mass/Vol] 1.12 mg/dL High 0.55-1.02 [facility] Comment on above: Result Comment: The validity of the calculated GFR GFRAA in patients over 70 years has not been determined. Clinical correlation is essential. Performed By: #### L 500.4050, L100.0100 #### [facility] [address] [place], [address] EST GFR - AA 60 mL/min Normal >60 [facility] Comment on above: Result Comment: Afri can [place] GFR Calc Performed By: #### L 500.4050, L100.0100 #### [facility] [address] [place], [address] GAP 2 Low 5-15 [facility] Comment on above: Performed By: #### L 500.4050, L100.0100 #### [facility] [address] [place], [address] GFR/1.73 sq M.predicted among non-blacks MDRD (S/P/Bld) [Vol rate/Area] 50 mL/min/{1.73_m2} Low >60 [facility] Comment on above: Result Comment: Non- GFR Calc Performed By: #### L 500.4050, L100.0100 #### [facility] [address] [place], [address] Globulin (S) [Mass/Vol] 3.8 g/dL Normal 2.2-4.2 [facility] Comment on above: Performed By: #### L 500.4050, L100.0100 #### [facility] [address] [place], [address] Glucose [Mass/Vol] 113 mg/dL High 74-106 [facility] Comment on above: Result Comment: Fast ing Glucose result from 100 to 125 mg/dL suggests IMPAIRED HOMEOSTASIS per A.D.A. criteria. Performed By: #### L 500.4050, L100.0100 #### [facility] [address] [place], [address] Potassium [Moles/Vol] 4.2 mmol/L Normal 3.5-5.1 [facility] Comment on above: Performed By: #### L 500.4050, L100.0100 #### [facility] [address] [place], [address] Sodium [Moles/Vol] 138 mmol/L Normal 136-145 [facility] Comment on above: Performed By: #### L 500.4050, L100.0100 #### [facility] [address] [place], [address] T PROT 7.3 g/dL Normal 6.4-8.2 [facility] Comment on above: Performed By: #### L 500.4050, L100.0100 #### [facility] [address] [place], [place], [address] Urea nitrogen [Mass/Vol] 15 mg/dL Normal 7-18 [facility] Comment on above: Performed By: #### L 500.4050, L100.0100 #### [facility] [address] [place], [place], [address] Eosinophil percentageOrdered By: Nelly Goff on 02-05-2024 Eosinophils/100 WBC (Bld) 3.6 % 0-5 [facility] Erythrocyte distribution wid th ratioOrdered By: Nelly Goff on 02-05-2024 Erythrocyte distribution width (RBC) [Ratio] 12.7 % 11.6-14.6 [facility] Erythrocyte distribution wid th standard deviationOrdered By: Nelly Goff on 02-05-2024 Erythrocyte distribution width (RBC) [Entitic vol] 43.0 fL 35.1-43.9 [facility] Estimated glomerular filtrat ion rate (GFR) AmericanOrdered By: Nelly Goff on 02-05-2024 Estimated GFR (MDRD) Amer 60 mL/min >60 [facility] Comment on above: GFR Calc Glomerular filtration rate ( GFR) estimationOrdered By: Nelly Goff on 02-05-2024 Estimated GFR (MDRD) Non-Af Amer 50 mL/min Low >60 [facility] Comment on above: Non- GFR Calc Glucose measurementOrdered B y: Nelly Goff on 02-05-2024 Glucose [Mass/Vol] 113 mg/dL High 74-106 [facility] Comment on above: Fasting Glucose resu lt from 100 to 125 mg/dL suggests IMPAIRED HOMEOSTASIS per A.D.A. criteria. Hematocrit Auto (Bld) [Volum e fraction]Ordered By: Nelly Goff on 02-05-2024 Hematocrit (Bld) [Volume fraction] 45.0 % 37-47 [facility] Hemoglobin measurementOrdere d By: Nelly Goff on 02-05-2024 Hemoglobin (Bld) [Mass/Vol] 14.9 g/dL 12.0-15.0 [facility] Immature granulocytes/100 WB C Auto (Bld)Ordered By: Nelly Goff on 02-05-2024 Immature granulocytes/100 WBC (Bld) 0.500 % 0.0-0.9 [facility] Comment on above: IG% - Immature Granu locytes (promyelocytes, myelocytes and metamyelocytes) > 1% indicates that a LEFT SHIFT is Present. Laboratory - Chemistry and C hemistry - challengeOrdered By: Nelly Goff on 02-05-2024 AST [Catalytic activity/Vol] 20 U/L 15-37 [facility] Lymphocytes Auto (Unsp spec) [#/Vol]Ordered By: Nellynic Goff on 02-05-2024 Lymphocytes (Bld) [#/Vol] 2.30 10*3/uL 0.83-4.51 [facility] Lymphocytes/100 WBC Auto (Un sp spec)Ordered By: Nelly Goff on 02-05-2024 Lymphocytes/100 WBC (Bld) 38.1 % 19-41 [facility] MCV (mean corpuscular volume ) determinationOrdered By: Nelly Goff on 02-05-2024 MCV (RBC) [Entitic vol] 92.6 fL 81-99 [facility] Mean corpuscular hemoglobin (MCH) determinationOrdered By: Nelly Goff on 02-05-2024 MCH (RBC) [Entitic mass] 30.7 pg 27.0-32.0 [facility] Mean corpuscular hemoglobin concentration (MCHC) determinationOrdered By: Nelly Goff on 02-05-2024 MCHC (RBC) [Mass/Vol] 33.1 g/dL 32-36 [facility] Mean platelet volume determi nationOrdered By: Nelly Goff on 02-05-2024 Platelet mean volume (Bld) [Entitic vol] 11.5 fL 6.2-12.0 [facility] Monocyte percentageOrdered B y: Nelly Goff on 02-05-2024 Monocytes/100 WBC (Bld) 9.3 % 0-10 [facility] Neutrophil percentageOrdered By: Nelly Goff on 02-05-2024 Neutrophils/100 WBC (Bld) 47.5 % 47-70 [facility] Nucleated red blood cell per centageOrdered By: Nelly Goff on 02-05-2024 Nucleated RBC/100 WBC (Bld) [Ratio] 0 % 0-5 [facility] Platelet countOrdered By: Zaid Goff on 02-05-2024 Platelets (Bld) [#/Vol] 243 10*3/uL 150-450 [facility] Potassium measurementOrdered By: Nelly Goff on 02-05-2024 Potassium [Moles/Vol] 4.2 mmol/L 3.5-5.1 [facility] RBC Auto (Bld) [#/Vol]Ordere d By: Nelly Goff on 02-05-2024 RBC (Bld) [#/Vol] 4.86 10*6/uL 4.2-5.4 [facility] Serum anion gap measurementO rdered By: Nelly Goff on 02-05-2024 Anion gap [Moles/Vol] 2 mmol/L Low 5-15 [facility] Serum globulin measurementOr dered By: Nelly Goff on 02-05-2024 Globulin (S) [Mass/Vol] 3.8 g/dL 2.2-4.2 [facility] Serum or plasma alanine mcdonald otransferase (ALT) measurementOrdered By: Nelly Goff on 02-05-2024 ALT [Catalytic activity/Vol] 29 U/L 13-56 [facility] Serum or plasma albumin guicho urement (mass/volume)Ordered By: Nelly Goff on 02-05-2024 Albumin [Mass/Vol] 3.5 g/dL 3.2-5.0 [facility] Serum or plasma alkaline clarke sphatase measurementOrdered By: Nelly Goff on 02-05-2024 ALP [Catalytic activity/Vol] 70 U/L 45-117 [facility] Serum or plasma calcium guicho urement (mass/volume)Ordered By: Nelly Goff on 02-05-2024 Calcium [Mass/Vol] 9.7 mg/dL 8.5-10.1 [facility] Serum or plasma creatinine m easurement (mass/volume)Ordered By: Nelly Goff on 02-05-2024 Creatinine [Mass/Vol] 1.12 mg/dL High 0.55-1.02 [facility] Comment on above: The validity of the calculated GFR & GFRAA in patients over 70 years has not been determined. Clinical correlation is essential. Serum or plasma urea nitroge n measurement (mass/volume)Ordered By: Nelly Goff on 02-05-2024 Urea nitrogen [Mass/Vol] 15 mg/dL 7-18 [facility] Sodium levelOrdered By: Erik Goff on 02-05-2024 Sodium [Moles/Vol] 138 mmol/L 136-145 [facility] Total proteinOrdered By: Greg Goff on 02-05-2024 Protein [Mass/Vol] 7.3 g/dL 6.4-8.2 [facility] White blood cell (WBC) count Ordered By: Nelly Goff on 02-05-2024 WBC (Bld) [#/Vol] 6.0 10*3/uL 4.4-11.0 [facility] JO[facility] SANCHEZ ([id number]) 1940 F Date Time Provider Department 01/28/24 [facility] During your visit today, we recorded the following information about you: Angelica Sanchez RN 01/28/2024 3:23 PM Signed Annie calling from [employer] to state she will be faxing over [employer] Forms for insurance for the new year. PCP can review and complete if patient meets criteria on the form, as pt's NANCY was 12/04/22 and NOV is 04/01/24. For questions, Steph can be contacted at [phone] ext [phone]. RADHA Castro Kathryn, MA 01/28/2024 3:46 PM Signed Forms received and on PCP's desk. NIC Olivia Mark D, MD 01/28/2024 5:05 PM Signed Form done MD Dayton Henderson Rilee, MA 01/29/2024 12:49 PM Signed Form has been faxed to number below. Autumn Lozoya MA Allergies As of Date: 01/28/2024 (No Known Allergies) Date Reviewed: 12/04/2022 Reviewed by: Vonnie Andres MA - Fully Assessed Reason for Visit: [employer] Forms [Other] Prescriptions as of 01/29/2024 - Etanercept (ENBREL) 50 mg/mL (1 mL) [...] 1 tablet by mouth once daily. - cholecalciferol (VITAMIN D) 1,000 unit tab tablet Take 1,000 Units by mouth once daily. Problem List As Of Date 01/28/2024 Noted Resolved TOBACCO USE DISORDER [F17.200] 07/27/2006 Other emphysema (HCC) [J43.8] 07/27/2006 Osteoporosis [M81.0] 07/27/2006 ELEV BL PRES W/O HYPERTN [R03.0] 07/27/2006 01/19/2007 BENIGN HYPERTENSION [I10] 01/19/2007 VITAMIN D DEFICIENCY NOS [E55.9] 01/19/2007 07/23/2007 Elevated glucose [R73.09] 01/22/2010 Rheumatoid arthritis with positive rheumatoid f*03/05/2015 Smoking greater than 40 pack years [F17.210] 08/24/2015 Rheumatoid arthritis involving both hands with *05/08/2016 PVD (peripheral vascular disease) (HCC) [I73.9] 10/17/2017 Encounter Status:Closed by AUTUMN LOZOYA on 01/29/24 Normal [facility] CBC W/Diff, Automatedon 09-2 Absolute Lymph 3.49 X10 3/uL Normal 0.83-4.51 [facility] Comment on above: Performed By: #### L 500.4050, L100.0100 #### [facility] [address] [place], [address] Absolute Neut 3.3 X10 3/uL Normal 2.0-7.7 [facility] Comment on above: Performed By: #### L 500.4050, L100.0100 #### [facility] [address] [place], [address] Basophils/100 WBC (Bld) 0.8 % Normal 0-1 [facility] Comment on above: Performed By: #### L 500.4050, L100.0100 #### [facility] [address] [place], [address] Eosinophils/100 WBC (Bld) 2.7 % Normal 0-5 [facility] Comment on above: Performed By: #### L 500.4050, L100.0100 #### [facility] [address] [place], [address] Erythrocyte distribution width (RBC) [Ratio] 12.5 % Normal 11.6-14.6 [facility] Comment on above: Performed By: #### L 500.4050, L100.0100 #### [facility] [address] [place], [address] Hematocrit (Bld) [Volume fraction] 45.2 % Normal 37-47 [facility] Comment on above: Performed By: #### L 500.4050, L100.0100 #### [facility] [address] [place], [address] Hemoglobin (Bld) [Mass/Vol] 15.0 g/dL Normal 12.0-15.0 [facility] Comment on above: Performed By: #### L 500.4050, L100.0100 #### [facility] [address] [place], [address] IG% 0.400 Normal 0.0-0.9 [facility] Comment on above: Result Comment: IG% - Immature Granulocytes (promyelocytes, myelocytes and metamyelocytes) > 1% indicates that a LEFT SHIFT is Present. Performed By: #### L 500.4050, L100.0100 #### [facility] [address] [place], [address] Lymphocytes/100 WBC (Bld) 44.9 % High 19-41 [facility] Comment on above: Performed By: #### L 500.4050, L100.0100 #### [facility] [address] [place], [address] MCH (RBC) [Entitic mass] 30.2 pg Normal 27.0-32.0 [facility] Comment on above: Performed By: #### L 500.4050, L100.0100 #### [facility] [address] [place], [address] MCHC (RBC) [Mass/Vol] 33.2 g/dL Normal 32-36 [facility] Comment on above: Performed By: #### L 500.4050, L100.0100 #### [facility] [address] [place], [address] MCV (RBC) [Entitic vol] 91.1 fL Normal 81-99 [facility] Comment on above: Performed By: #### L 500.4050, L100.0100 #### [facility] [address] [place], [address] Monocytes/100 WBC (Bld) 8.5 % Normal 0-10 [facility] Comment on above: Performed By: #### L 500.4050, L100.0100 #### [facility] [address] [place], [address] Neutrophils/100 WBC (Bld) 42.7 % Low 47-70 [facility] Comment on above: Performed By: #### L 500.4050, L100.0100 #### [facility] [address] [place], [address] Nucleated RBC (Bld) [#/Vol] 0 10*3/uL Normal 0-5 [facility] Comment on above: Performed By: #### L 500.4050, L100.0100 #### [facility] [address] [place], [address] Platelet mean volume (Bld) [Entitic vol] 11.6 fL Normal 6.2-12.0 [facility] Comment on above: Performed By: #### L 500.4050, L100.0100 #### [facility] [address] [place], [address] Platelets (Bld) [#/Vol] 236 10*3/uL Normal 150-450 [facility] Comment on above: Performed By: #### L 500.4050, L100.0100 #### [facility] [address] [place], [address] RBC (Bld) [#/Vol] 4.96 10*6/uL Normal 4.2-5.4 [facility] Comment on above: Performed By: #### L 500.4050, L100.0100 #### [facility] [address] [place], [address] RDW SD 41.9 fl Normal 35.1-43.9 [facility] Comment on above: Performed By: #### L 500.4050, L100.0100 #### [facility] [address] [place], [address] WBC (Bld) [#/Vol] 7.8 10*3/uL Normal 4.4-11.0 [facility] Comment on above: Performed By: #### L 500.4050, L100.0100 #### [facility] [address] [place], [address] Comprehensive Metabolic Prof ilon 11-06-2023 Albumin [Mass/Vol] 3.8 g/dL Normal 3.2-5.0 [facility] Comment on above: Performed By: #### L 500.4050, L100.0100 #### [facility] [address] [place], [address] Albumin/Globulin [Mass ratio] 1.1 {ratio} Normal 0.9-2.4 [facility] Comment on above: Performed By: #### L 500.4050, L100.0100 #### [facility] [address] [place], [address] ALK P 73 U/L Normal 45-117 [facility] Comment on above: Performed By: #### L 500.4050, L100.0100 #### [facility] [address] [place], [address] ALT [Catalytic activity/Vol] 33 U/L Normal 13-56 [facility] Comment on above: Performed By: #### L 500.4050, L100.0100 #### [facility] [address] [place], [address] AST [Catalytic activity/Vol] 25 U/L Normal 15-37 [facility] Comment on above: Performed By: #### L 500.4050, L100.0100 #### [facility] [address] [place], [address] Bilirubin [Mass/Vol] 0.90 mg/dL Normal 0.20-1.00 [facility] Comment on above: Result Comment: For patients on eltrombopag therapy, use of Dimension [place] TBIL is not recommended. Performed By: #### L 500.4050, L100.0100 #### [facility] [address] [place], [address] BUN/CRE 16.6 RATIO Normal 10-20 [facility] Comment on above: Performed By: #### L 500.4050, L100.0100 #### [facility] [address] [place], [address] CA,Total 9.7 mg/dL Normal 8.5-10.1 [facility] Comment on above: Performed By: #### L 500.4050, L100.0100 #### [facility] [address] [place], [address] Chloride [Moles/Vol] 106 mmol/L Normal 98-107 [facility] Comment on above: Performed By: #### L 500.4050, L100.0100 #### [facility] [address] [place], [address] CO2 [Moles/Vol] 28.0 mmol/L Normal 21.0-32.0 [facility] Comment on above: Performed By: #### L 500.4050, L100.0100 #### [facility] [address] [place], [address] Creatinine [Mass/Vol] 0.90 mg/dL Normal 0.55-1.02 [facility] Comment on above: Result Comment: The validity of the calculated GFR GFRAA in patients over 70 years has not been determined. Clinical correlation is essential. Performed By: #### L 500.4050, L100.0100 #### [facility] [address] [place], [address] EST GFR - AA 77 mL/min Normal >60 [facility] Comment on above: Result Comment: Afri can [place] GFR Calc Performed By: #### L 500.4050, L100.0100 #### [facility] [address] [place], [address] GAP 3 Low 5-15 [facility] Comment on above: Performed By: #### L 500.4050, L100.0100 #### [facility] [address] [place], [address] GFR/1.73 sq M.predicted among non-blacks MDRD (S/P/Bld) [Vol rate/Area] 64 mL/min/{1.73_m2} Normal >60 [facility] Comment on above: Result Comment: Non- GFR Calc Performed By: #### L 500.4050, L100.0100 #### [facility] [address] [place], [address] Globulin (S) [Mass/Vol] 3.5 g/dL Normal 2.2-4.2 [facility] Comment on above: Performed By: #### L 500.4050, L100.0100 #### [facility] [address] [place], [address] Glucose [Mass/Vol] 101 mg/dL Normal 74-106 [facility] Comment on above: Result Comment: Fast ing Glucose result from 100 to 125 mg/dL suggests IMPAIRED HOMEOSTASIS per A.D.A. criteria. Performed By: #### L 500.4050, L100.0100 #### [facility] [address] [place], [address] Potassium [Moles/Vol] 4.2 mmol/L Normal 3.5-5.1 [facility] Comment on above: Performed By: #### L 500.4050, L100.0100 #### [facility] [address] [place], [address] Sodium [Moles/Vol] 137 mmol/L Normal 136-145 [facility] Comment on above: Performed By: #### L 500.4050, L100.0100 #### [facility] [address] [place], [address] T PROT 7.3 g/dL Normal 6.4-8.2 [facility] Comment on above: Performed By: #### L 500.4050, L100.0100 #### [facility] [address] [place], [address] Urea nitrogen [Mass/Vol] 15 mg/dL Normal 7-18 [facility] Comment on above: Performed By: #### L 500.4050, L100.0100 #### [facility] [address] [place], [address] Absolute lymphocyte countOrd ered By: Nelly Goff on 05-22-2023 Lymphocytes Auto (Unsp spec) [#/Vol] 3.70 10*3/uL 0.83-4.51 [facility] Automated lymphocyte count a s percentage of total leukocytesOrdered By: Nelly Goff on 05-22-2023 Lymphocytes/100 WBC Auto (Unsp spec) 47.0 % 19-41 [facility] Basophil percentageOrdered B y: Nelly Goff on 05-22-2023 Basophils/100 WBC (Bld) 0.8 % 0-1 [facility] Bilirubin [Mass/Vol] 0.70 mg/dL 0.20-1.00 [facility] Comment on above: For patients on eltr ombopag therapy, use of Dimension [place] TBIL is not recommended. Chloride [Moles/Vol] 109 mmol/L 98-107 [facility] Eosinophils/100 WBC (Bld) 3.9 % 0-5 [facility] Glucose [Mass/Vol] 171 mg/dL 74-106 [facility] Comment on above: Fasting Glucose resu lt greater than or equal to 126 mg/dL suggests DIABETES MELLITUS per A.D.A. criteria. Hemoglobin (Bld) [Mass/Vol] 14.9 g/dL 12.0-15.0 [facility] Monocytes/100 WBC (Bld) 7.5 % 0-10 [facility] Neutrophils (Bld) [#/Vol] 3.2 10*3/uL 2.0-7.7 [facility] Neutrophils/100 WBC (Bld) 40.5 % 47-70 [facility] Potassium [Moles/Vol] 4.0 mmol/L 3.5-5.1 [facility] Protein [Mass/Vol] 7.0 g/dL 6.4-8.2 [facility] Sodium [Moles/Vol] 140 mmol/L 136-145 [facility] WBC (Bld) [#/Vol] 7.9 10*3/uL 4.4-11.0 [facility] Determination of erythrocyte mean corpuscular volume (MCV)Ordered By: Nelly Goff on 05-22-2023 MCV (RBC) [Entitic vol] 92.6 fL 81-99 [facility] Erythrocyte distribution wid th ratioOrdered By: [facility] on 05-22-2023 Erythrocyte distribution width (RBC) [Ratio] 12.7 % 11.6-14.6 [facility] Erythrocyte distribution wid th standard deviationOrdered By: [facility] on 05-22-2023 Erythrocyte distribution width (RBC) [Entitic vol] 43.4 fL 35.1-43.9 [facility] Hematocrit Auto (Bld) [Volum e fraction]Ordered By: [facility] on 05-22-2023 Hematocrit (Bld) [Volume fraction] 43.9 % 37-47 [facility] Immature granulocytes/100 WB C Auto (Bld)Ordered By: [facility] on 05-22-2023 Immature granulocytes/100 WBC (Bld) 0.300 % 0.0-0.9 [facility] Comment on above: IG% - Immature Granu locytes (promyelocytes, myelocytes and metamyelocytes) > 1% indicates that a LEFT SHIFT is Present. Laboratory - Chemistry and C hemistry - challengeOrdered By: Nelly Goff on 05-22-2023 Albumin/Globulin [Mass ratio] 1.1 {ratio} 0.9-2.4 [facility] ALP [Catalytic activity/Vol] 77 U/L 45-117 [facility] ALT [Catalytic activity/Vol] 31 U/L 13-56 [facility] CO2 [Moles/Vol] 26.0 mmol/L 21.0-32.0 [facility] Globulin (S) [Mass/Vol] 3.4 g/dL 2.2-4.2 [facility] Urea nitrogen/Creatinine [Mass ratio] 19.0 mg/mg 10-20 [facility] Laboratory - Hematology and Cell countsOrdered By: Nelly Goff on 05-22-2023 MCH (RBC) [Entitic mass] 31.4 pg 27.0-32.0 [facility] MCHC (RBC) [Mass/Vol] 33.9 g/dL 32-36 [facility] Nucleated RBC/100 WBC (Bld) [Ratio] 0 % 0-5 [facility] Platelet mean volume (Bld) [Entitic vol] 12.3 fL 6.2-12.0 [facility] Platelets (Bld) [#/Vol] 203 10*3/uL 150-450 [facility] No Panel InformationOrdered By: Nelly Goff on 05-22-2023 Estimated GFR (MDRD) Amer 68 mL/min >60 [facility] Comment on above: GFR Calc Estimated GFR (MDRD) Non-Af Amer 57 mL/min >60 [facility] Comment on above: Non- GFR Calc RBC Auto (Bld) [#/Vol]Ordere d By: Nelly Goff on 05-22-2023 RBC (Bld) [#/Vol] 4.74 10*6/uL 4.2-5.4 [facility] Serum or plasma calcium guicho urement (mass/volume)Ordered By: Nelly Goff on 05-22-2023 Calcium [Mass/Vol] 9.4 mg/dL 8.5-10.1 [facility] Serum or plasma creatinine m easurement (mass/volume)Ordered By: Nelly Goff on 05-22-2023 Creatinine [Mass/Vol] 1.00 mg/dL 0.55-1.02 [facility] Comment on above: The validity of the calculated GFR & GFRAA in patients over 70 years has not been determined. Clinical correlation is essential. Serum or plasma urea nitroge n measurement (mass/volume)Ordered By: Nelly Goff on 05-22-2023 Urea nitrogen [Mass/Vol] 19 mg/dL 7-18 [facility] Thin prep Papanicolaou smear with manual screeningOrdered By: Nelly Goff on 05-22-2023 Thin prep Papanicolaou smear with manual screening 3.6 g/dL 3.2-5.0 [facility] Thin prep Papanicolaou smear with manual screening 23 U/L 15-37 [facility] Thin prep Papanicolaou smear with manual screening 5 5-15 [facility] Absolute lymphocyte countOrd ered By: [facility] [place] on 02-25-2023 Lymphocytes Auto (Unsp spec) [#/Vol] 3.10 10*3/uL 0.83-4.51 [facility] Automated lymphocyte count a s percentage of total leukocytesOrdered By: [facility] on 02-25-2023 Lymphocytes/100 WBC Auto (Unsp spec) 43.6 % 19-41 [facility] Basophil percentageOrdered B y: Nelly [facility] on 02-25-2023 Basophils/100 WBC (Bld) 0.8 % 0-1 [facility] Bilirubin [Mass/Vol] 0.70 mg/dL 0.20-1.00 [facility] Comment on above: For patients on eltr ombopag therapy, use of Dimension [place] TBIL is not recommended. Chloride [Moles/Vol] 107 mmol/L 98-107 [facility] Eosinophils/100 WBC (Bld) 3.0 % 0-5 [facility] Glucose [Mass/Vol] 102 mg/dL 74-106 [facility] Comment on above: Fasting Glucose resu lt from 100 to 125 mg/dL suggests IMPAIRED HOMEOSTASIS per A.D.A. criteria. Hemoglobin (Bld) [Mass/Vol] 15.1 g/dL 12.0-15.0 [facility] Monocytes/100 WBC (Bld) 8.2 % 0-10 [facility] Neutrophils (Bld) [#/Vol] 3.2 10*3/uL 2.0-7.7 [facility] Neutrophils/100 WBC (Bld) 44.3 % 47-70 [facility] Potassium [Moles/Vol] 4.2 mmol/L 3.5-5.1 [facility] Protein [Mass/Vol] 7.2 g/dL 6.4-8.2 [facility] Sodium [Moles/Vol] 139 mmol/L 136-145 [facility] WBC (Bld) [#/Vol] 7.1 10*3/uL 4.4-11.0 [facility] Determination of erythrocyte mean corpuscular volume (MCV)Ordered By: Nelly Goff on 02-25-2023 MCV (RBC) [Entitic vol] 92.7 fL 81-99 [facility] Erythrocyte distribution wid th ratioOrdered By: Nelly Goff on 02-25-2023 Erythrocyte distribution width (RBC) [Ratio] 12.8 % 11.6-14.6 [facility] Erythrocyte distribution wid th standard deviationOrdered By: [facility] on 02-25-2023 Erythrocyte distribution width (RBC) [Entitic vol] 43.5 fL 35.1-43.9 [facility] Hematocrit Auto (Bld) [Volum e fraction]Ordered By: Nelly Goff on 02-25-2023 Hematocrit (Bld) [Volume fraction] 45.9 % 37-47 [facility] Immature granulocytes/100 WB C Auto (Bld)Ordered By: Nelly Goff on 02-25-2023 Immature granulocytes/100 WBC (Bld) 0.100 % 0.0-0.9 [facility] Comment on above: IG% - Immature Granu locytes (promyelocytes, myelocytes and metamyelocytes) > 1% indicates that a LEFT SHIFT is Present. Laboratory - Chemistry and C hemistry - challengeOrdered By: Nelly Goff on 02-25-2023 Albumin/Globulin [Mass ratio] 1.1 {ratio} 0.9-2.4 [facility] ALP [Catalytic activity/Vol] 68 U/L 45-117 [facility] ALT [Catalytic activity/Vol] 21 U/L 13-56 [facility] CO2 [Moles/Vol] 28.0 mmol/L 21.0-32.0 [facility] Globulin (S) [Mass/Vol] 3.5 g/dL 2.2-4.2 [facility] Urea nitrogen/Creatinine [Mass ratio] 18.1 mg/mg 10-20 [facility] Laboratory - Hematology and Cell countsOrdered By: Nelly Goff on 02-25-2023 MCH (RBC) [Entitic mass] 30.5 pg 27.0-32.0 [facility] MCHC (RBC) [Mass/Vol] 32.9 g/dL 32-36 [facility] Nucleated RBC/100 WBC (Bld) [Ratio] 0 % 0-5 [facility] Platelets (Bld) [#/Vol] 195 10*3/uL 150-450 [facility] No Panel InformationOrdered By: Nelly Goff on 02-25-2023 Estimated GFR (MDRD) Amer 79 mL/min >60 [facility] Comment on above: GFR Calc Estimated GFR (MDRD) Non-Af Amer 65 mL/min >60 [facility] Comment on above: Non- GFR Calc Platelet mean volume Nathaniel-Ec ker (Bld) [Entitic vol]Ordered By: Nelly Goff on 02-25-2023 Platelet mean volume (Bld) [Entitic vol] 11.6 fL 6.2-12.0 [facility] RBC Auto (Bld) [#/Vol]Ordere d By: Nelly Goff on 02-25-2023 RBC (Bld) [#/Vol] 4.95 10*6/uL 4.2-5.4 [facility] Serum or plasma calcium guicho urement (mass/volume)Ordered By: Nelly Goff on 02-25-2023 Calcium [Mass/Vol] 9.5 mg/dL 8.5-10.1 [facility] Serum or plasma creatinine m easurement (mass/volume)Ordered By: Nelly Goff on 02-25-2023 Creatinine [Mass/Vol] 0.89 mg/dL 0.55-1.02 [facility] Comment on above: The validity of the calculated GFR & GFRAA in patients over 70 years has not been determined. Clinical correlation is essential. Serum or plasma urea nitroge n measurement (mass/volume)Ordered By: Nelly Goff on 02-25-2023 Urea nitrogen [Mass/Vol] 16 mg/dL 7-18 [facility] Thin prep Papanicolaou smear with manual screeningOrdered By: Nelly Goff on 02-25-2023 Thin prep Papanicolaou smear with manual screening 3.7 g/dL 3.2-5.0 [facility] Thin prep Papanicolaou smear with manual screening 20 U/L 15-37 [facility] Thin prep Papanicolaou smear with manual screening 4 5-15 [facility] Absolute lymphocyte countOrd ered By: Nelly Goff on 12-11-2022 Lymphocytes Auto (Unsp spec) [#/Vol] 2.39 10*3/uL 0.83-4.51 [facility] Basophil percentageOrdered B y: Nelly Goff on 12-11-2022 Basophils/100 WBC (Bld) 0.5 % 0-1 [facility] Bilirubin [Mass/Vol] 1.10 mg/dL 0.20-1.00 [facility] Comment on above: For patients on eltr ombopag therapy, use of Dimension [place] TBIL is not recommended. Chloride [Moles/Vol] 107 mmol/L 98-107 [facility] Eosinophils/100 WBC (Bld) 2.1 % 0-5 [facility] Glucose [Mass/Vol] 108 mg/dL 74-106 [facility] Comment on above: Fasting Glucose resu lt from 100 to 125 mg/dL suggests IMPAIRED HOMEOSTASIS per A.D.A. criteria. Neutrophils (Bld) [#/Vol] 4.1 10*3/uL 2.0-7.7 [facility] Neutrophils/100 WBC (Bld) 55.5 % 47-70 [facility] Potassium [Moles/Vol] 4.5 mmol/L 3.5-5.1 [facility] Protein [Mass/Vol] 7.2 g/dL 6.4-8.2 [facility] Sodium [Moles/Vol] 139 mmol/L 136-145 [facility] WBC (Bld) [#/Vol] 7.5 10*3/uL 4.4-11.0 [facility] Blood erythrocytes count (nu mber/volume)Ordered By: Nelly Goff on 12-11-2022 RBC (Bld) [#/Vol] 5.08 10*6/uL 4.2-5.4 [facility] Blood hemoglobin measurement (mass/volume)Ordered By: Nelly Goff on 12-11-2022 Hemoglobin (Bld) [Mass/Vol] 15.5 g/dL 12.0-15.0 [facility] Blood lymphocytes/100 leukoc ytesOrdered By: Nelly Goff on 12-11-2022 Lymphocytes/100 WBC (Bld) 32.0 % 19-41 [facility] Blood monocytes/100 leukocyt esOrdered By: Nelly Goff on 12-11-2022 Monocytes/100 WBC (Bld) 9.5 % 0-10 [facility] Blood platelet mean volumeOr dered By: Nelly Goff on 12-11-2022 Platelet mean volume (Bld) [Entitic vol] 11.3 fL 6.2-12.0 [facility] Determination of erythrocyte mean corpuscular volume (MCV)Ordered By: Nelly Goff on 12-11-2022 MCV (RBC) [Entitic vol] 90.9 fL 81-99 [facility] Hematocrit Auto (Bld) [Volum e fraction]Ordered By: Nelly Goff on 12-11-2022 Hematocrit (Bld) [Volume fraction] 46.2 % 37-47 [facility] Laboratory - Chemistry and C hemistry - challengeOrdered By: [facility] [place] on 12-11-2022 ALP [Catalytic activity/Vol] 66 U/L 45-117 [facility] ALT [Catalytic activity/Vol] 31 U/L 13-56 [facility] CO2 [Moles/Vol] 27.0 mmol/L 21.0-32.0 [facility] Globulin (S) [Mass/Vol] 3.6 g/dL 2.2-4.2 [facility] Urea nitrogen/Creatinine [Mass ratio] 17.1 mg/mg 10-20 [facility] Laboratory - Hematology and Cell countsOrdered By: Nellynic Goff on 12-11-2022 Erythrocyte distribution width (RBC) [Entitic vol] 44.4 fL 35.1-43.9 [facility] Erythrocyte distribution width (RBC) [Ratio] 13.1 % 11.6-14.6 [facility] Immature granulocytes/100 WBC (Bld) 0.400 % 0.0-0.9 [facility] Comment on above: IG% - Immature Granu locytes (promyelocytes, myelocytes and metamyelocytes) > 1% indicates that a LEFT SHIFT is Present. MCH (RBC) [Entitic mass] 30.5 pg 27.0-32.0 [facility] Nucleated RBC/100 WBC (Bld) [Ratio] 0 % 0-5 [facility] MCHC Auto (RBC) [Mass/Vol]Or dered By: Nelly Goff on 12-11-2022 MCHC (RBC) [Mass/Vol] 33.5 g/dL 32-36 [facility] No Panel InformationOrdered By: Nelly Goff on 12-11-2022 Estimated GFR (MDRD) Amer 74 mL/min >60 [facility] Comment on above: GFR Calc Estimated GFR (MDRD) Non-Af Amer 61 mL/min >60 [facility] Comment on above: Non- GFR Calc Platelets bldOrdered By: Greg Goff on 12-11-2022 Platelets (Bld) [#/Vol] 252 10*3/uL 150-450 [facility] Serum or plasma albumin guicho urement (mass/volume)Ordered By: Nelly Goff on 12-11-2022 Albumin [Mass/Vol] 3.6 g/dL 3.2-5.0 [facility] Serum or plasma albumin/glob ulin mass ratioOrdered By: Nelly Goff on 12-11-2022 Albumin/Globulin [Mass ratio] 1.0 {ratio} 0.9-2.4 [facility] Serum or plasma calcium guicho urement (mass/volume)Ordered By: Nelly Goff on 12-11-2022 Calcium [Mass/Vol] 9.4 mg/dL 8.5-10.1 [facility] Serum or plasma creatinine m easurement (mass/volume)Ordered By: Nelly Goff on 12-11-2022 Creatinine [Mass/Vol] 0.93 mg/dL 0.55-1.02 [facility] Comment on above: The validity of the calculated GFR & GFRAA in patients over 70 years has not been determined. Clinical correlation is essential. Serum or plasma urea nitroge n measurement (mass/volume)Ordered By: Nelly Goff on 12-11-2022 Urea nitrogen [Mass/Vol] 16 mg/dL 7-18 [facility] Thin prep Papanicolaou smear with manual screeningOrdered By: Nelly Goff on 12-11-2022 Thin prep Papanicolaou smear with manual screening 23 U/L 15-37 [facility] Thin prep Papanicolaou smear with manual screening 5 5-15 [facility] .GFRon 11-28-2022 GFR 71 ml/min/1.73sqm Normal [facility] ([place]) Comment on above: Result Comment: GFR Population mean for , Non- Americans Ages 20-29 = 116 mL/min/1.73 sq.m. Ages 30-39 = 107 mL/min/1.73 sq.m. Ages 40-49 = 99 mL/min/1.73 sq.m. Ages 50-59 = 93 mL/min/1.73 sq.m. Ages 60-69 = 85 mL/min/1.73 sq.m. Ages 70+ = 75 mL/min/1.73 sq.m. Chronic Kidney Disease: Less than 60 mL/min/1.73 square meters End Stage Renal Disease: Less than 15 mL/min/1.73 square meters Performed By: #### U AMICAO, UA #### [place] [address] GFR Non- 59 ml/min/1.73sqm Normal [facility] ([place]) Comment on above: Result Comment: GFR Population mean for , Non- Americans Ages 20-29 = 116 mL/min/1.73 sq.m. Ages 30-39 = 107 mL/min/1.73 sq.m. Ages 40-49 = 99 mL/min/1.73 sq.m. Ages 50-59 = 93 mL/min/1.73 sq.m. Ages 60-69 = 85 mL/min/1.73 sq.m. Ages 70+ = 75 mL/min/1.73 sq.m. Chronic Kidney Disease: Less than 60 mL/min/1.73 square meters End Stage Renal Disease: Less than 15 mL/min/1.73 square meters Performed By: #### U AMICAO, UA #### [id number] [place], [place] [address] GFR 51 ml/min/1.73sqm Normal [facility] ([place]) Comment on above: Result Comment: GFR Population mean for , Non- Americans Ages 20-29 = 116 mL/min/1.73 sq.m. Ages 30-39 = 107 mL/min/1.73 sq.m. Ages 40-49 = 99 mL/min/1.73 sq.m. Ages 50-59 = 93 mL/min/1.73 sq.m. Ages 60-69 = 85 mL/min/1.73 sq.m. Ages 70+ = 75 mL/min/1.73 sq.m. Chronic Kidney Disease: Less than 60 mL/min/1.73 square meters End Stage Renal Disease: Less than 15 mL/min/1.73 square meters Performed By: #### L AC #### [address] [address] GFR Non- 42 ml/min/1.73sqm Normal [facility] ([place]) Comment on above: Result Comment: GFR Population mean for , Non- Americans Ages 20-29 = 116 mL/min/1.73 sq.m. Ages 30-39 = 107 mL/min/1.73 sq.m. Ages 40-49 = 99 mL/min/1.73 sq.m. Ages 50-59 = 93 mL/min/1.73 sq.m. Ages 60-69 = 85 mL/min/1.73 sq.m. Ages 70+ = 75 mL/min/1.73 sq.m. Chronic Kidney Disease: Less than 60 mL/min/1.73 square meters End Stage Renal Disease: Less than 15 mL/min/1.73 square meters Performed By: #### L AC #### [address] [address] APTTon 11-28-2022 aPTT Coag (Bld) [Time] 28.7 s Normal 25.0-35.0 [facility] ([place]) Comment on above: Result Comment: For Heparin anticoagulation therapy, the recommended therapeutic range is: 50.6-87.4 seconds. Patients on heparin therapy may have an extreme result. Performed By: #### D ZARIA, CMP, GFR, CK, FERR, CRP, LD, MG #### [address] [address] Heparin dose (APTT) Heparin IV Normal [facility] ([place]) Comment on above: Performed By: #### D ZARIA, CMP, GFR, CK, FERR, CRP, LD, MG #### [place] [address] BMPon 11-28-2022 BUN/Creatinine Ratio 24 ratio Normal 7-27 [facility] ([place]) Comment on above: Performed By: #### L AC #### [place] [address] [address] BMPOrdered By: SYSTEM SYSTEM on 11-28-2022 Calcium [Mass/Vol] 7.9 mg/dL Low 8.4-10.2 AO ADM SS Comment on above: Performed By: #### L AC #### [address] [address] Chloride [Moles/Vol] 104 mmol/L Normal 98-107 AO A DM SS Comment on above: Performed By: #### L AC #### [address] [address] CO2 [Moles/Vol] 23 mmol/L Normal 23-31 AO ADM SS Comment on above: Performed By: #### L AC #### [address] [address] Creatinine [Mass/Vol] 0.92 mg/dL Normal 0.55-1.02 AO ADM SS Comment on above: Performed By: #### L AC #### [place] [address] Electrolyte Balance 10.0 mEq/L Normal 4.0-15.0 AO AD M SS Comment on above: Performed By: #### L AC #### [address] [address] Glucose [Mass/Vol] 172 mg/dL High 83-110 AO ADM SS Comment on above: Performed By: #### L AC #### [address] [address] Potassium [Moles/Vol] 4.4 mmol/L Normal 3.5-5.1 AO ADM SS Comment on above: Performed By: #### L AC #### [address] [address] Sodium [Moles/Vol] 137 mmol/L Normal 136-145 AO ADM SS Comment on above: Performed By: #### L AC #### [address] [address] Urea nitrogen [Mass/Vol] 22 mg/dL High 7-18 AO ADM SS Comment on above: Performed By: #### L AC #### [address] [address] CKon 11-28-2022 CK [Catalytic activity/Vol] 34 U/L Normal 26-192 [facility] ([place]) Comment on above: Performed By: #### L AC #### [address] [address] CMPon 11-28-2022 Albumin Level 3.7 G/dL Normal 3.4-4.8 [facility] ([place]) Comment on above: Performed By: #### L AC #### [address] [address] Albumin/Globulin [Mass ratio] 1.2 {ratio} Normal 1.1-2.5 [facility] ([place]) Comment on above: Performed By: #### L AC #### [address] [address] ALP [Catalytic activity/Vol] 63 U/L Normal 40-135 [facility] ([place]) Comment on above: Performed By: #### L AC #### [address] [address] ALT [Catalytic activity/Vol] 27 U/L Normal 14-59 [facility] ([place]) Comment on above: Performed By: #### L AC #### [address] [address] AST [Catalytic activity/Vol] 24 U/L Normal 10-40 [facility] ([place]) Comment on above: Performed By: #### L AC #### [address] [address] Bili Total 0.8 mg/dL Normal 0.2-1.0 [facility] ([place]) Comment on above: Result Comment: Use of this assay is not recommended for patients undergoing treatment with eltrombopag due to the potential for falsely elevated results. Performed By: #### L AC #### [address] [address] BUN/Creatinine Ratio 16 ratio Normal 7-27 [facility] ([place]) Comment on above: Performed By: #### L AC #### [address] [address] Calcium [Mass/Vol] 8.8 mg/dL Normal 8.4-10.2 [facility] ([place]) Comment on above: Performed By: #### L AC #### [address] [address] Chloride [Moles/Vol] 103 mmol/L Normal 98-107 [facility] ([place]) Comment on above: Performed By: #### L AC #### [address] [address] CO2 [Moles/Vol] 26 mmol/L Normal 23-31 [facility] ([place]) Comment on above: Performed By: #### L AC #### [address] [address] Creatinine [Mass/Vol] 1.23 mg/dL High 0.55-1.02 [facility] ([place]) Comment on above: Performed By: #### L AC #### [address] [address] Electrolyte Balance 6.0 mEq/L Normal 4.0-15.0 [facility] ([place]) Comment on above: Performed By: #### L AC #### [address] [address] Globulin 3.1 G/dL Normal [facility] ([place]) Comment on above: Performed By: #### L AC #### [address] [address] Glucose [Mass/Vol] 104 mg/dL Normal 83-110 [facility] ([place]) Comment on above: Performed By: #### L AC #### [address] [address] Potassium [Moles/Vol] 4.3 mmol/L Normal 3.5-5.1 [facility] ([place]) Comment on above: Performed By: #### L AC #### [address] [address] Sodium [Moles/Vol] 135 mmol/L Low 136-145 [facility] ([place] Comment on above: Performed By: #### L AC #### [address] [address] Total Protein 6.8 G/dL Normal 6.4-8.2 [facility] ([place]) Comment on above: Performed By: #### L AC #### [address] [address] Urea nitrogen [Mass/Vol] 20 mg/dL High 7-18 [facility] ([place]) Comment on above: Performed By: #### L AC #### [address] [address] CRPon 11-28-2022 C-Reactive Protein 1.2 mg/dL High 0.0-0.3 [facility] ([place]) Comment on above: Performed By: #### D ZARIA, CMP, GFR, CK, FERR, CRP, LD, MG #### [address] [address] DIMERon 11-28-2022 D-Dimer 533 ng/mL D-DU High 0-230 [facility] ([place]) Comment on above: Result Comment: Resu lts reported in D-DU ng/mL. Positive for D-dimer. A positive D-Dimer may occur in the following: DVT, PE, DIC, Trauma, Cancer, Sepsis, , Rheumatoid arthritis, Myocardial infarction and Cirrhosis. The presence of Rheumatoid Factor and HAMA (human mouse antibody) produces an overestimation of test results. The result of the D-Dimer test should be evaluated in the context of all the clinical and laboratory data available. In those instances where the laboratory result does not agree with the clinical evaluation, additional tests should be performed accordingly. If the D-Dimer result is used to exclude DVT or PE, the recommended cutoff value is less than 230 ng/mL. The D-Dimer result should not be used alone to rule in DVT/PE, but should be used in conjunction with a clinical pretest probability (PTP)assessment model to exclude venous thromboembolism (VTE) in outpatients suspected of deep venous thrombosis (DVT) and pulmonary embolism (PE). Performed By: #### D ZARIA, CMP, GFR, CK, FERR, CRP, LD, MG #### [address] [address] Lizz 11-28-2022 Ferritin [Mass/Vol] 109.0 ng/mL Normal 8.0-252.0 [facility] ([place]) Comment on above: Performed By: #### D ZARIA, CMP, GFR, CK, FERR, CRP, LD, MG #### [address] [place], [place] [address] LABORATORYOrdered By: SYSTEM SYSTEM on 11-28-2022 GFR/1.73 sq M.predicted among blacks MDRD (S/P/Bld) [Vol rate/Area] 71 ml/min/1.73sqm Invalid Interpretation Code AO Chemistry S Comment on above: Interpretive Data: GFR Population mean for , Non- Americans Ages 20-29 = 116 mL/min/1.73 sq.m. Ages 30-39 = 107 mL/min/1.73 sq.m. Ages 40-49 = 99 mL/min/1.73 sq.m. Ages 50-59 = 93 mL/min/1.73 sq.m. Ages 60-69 = 85 mL/min/1.73 sq.m. Ages 70+ = 75 mL/min/1.73 sq.m. Chronic Kidney Disease: Less than 60 mL/min/1.73 square meters End Stage Renal Disease: Less than 15 mL/min/1.73 square meters GFR/1.73 sq M.predicted among non-blacks MDRD (S/P/Bld) [Vol rate/Area] 59 ml/min/1.73sqm Invalid Interpretation Code AO Chemistry S Comment on above: Interpretive Data: GFR Population mean for , Non- Americans Ages 20-29 = 116 mL/min/1.73 sq.m. Ages 30-39 = 107 mL/min/1.73 sq.m. Ages 40-49 = 99 mL/min/1.73 sq.m. Ages 50-59 = 93 mL/min/1.73 sq.m. Ages 60-69 = 85 mL/min/1.73 sq.m. Ages 70+ = 75 mL/min/1.73 sq.m. Chronic Kidney Disease: Less than 60 mL/min/1.73 square meters End Stage Renal Disease: Less than 15 mL/min/1.73 square meters Urea nitrogen/Creatinine [Mass ratio] 24 ratio Invalid Interpretation Code 7 - 27 ratio AO ADM SS Albumin BCP dye [Mass/Vol] 3.7 G/dL Invalid Interpretation Code 3.4 - 4.8 G/dL AO ADM SS Albumin/Globulin [Mass ratio] 1.2 {ratio} Invalid Interpretation Code 1.1 - 2.5 ratio AO ADM SS ALP [Catalytic activity/Vol] 63 U/L Invalid Interpretation Code 40 - 135 U/L AO ADM SS ALT With P-5'-P [Catalytic activity/Vol] 27 U/L Invalid Interpretation Code 14 - 59 U/L AO ADM SS AST With P-5'-P [Catalytic activity/Vol] 24 U/L Invalid Interpretation Code 10 - 40 U/L AO ADM SS Bilirubin [Mass/Vol] 0.8 mg/dL Invalid Interpretation Code 0.2 - 1.0 mg/dL AO ADM SS Comment on above: Interpretive Data: U se of this assay is not recommended for patients undergoing treatment with eltrombopag due to the potential for falsely elevated results. Calcium [Mass/Vol] 8.8 mg/dL Invalid Interpretation Code 8.4 - 10.2 mg/dL AO ADM SS Chloride [Moles/Vol] 103 mmol/L Invalid Interpretation Code 98 - 107 mmol/L AO ADM SS CK [Catalytic activity/Vol] 34 U/L Invalid Interpretation Code 26 - 192 U/L AO ADM SS CO2 [Moles/Vol] 26 mmol/L Invalid Interpretation Code 23 - 31 mmol/L AO ADM SS Creatinine [Mass/Vol] 1.23 mg/dL Invalid Interpretation Code 0.55 - 1.02 mg/dL AO ADM SS CRP [Mass/Vol] 1.2 mg/dL Invalid Interpretation Code 0.0 - 0.3 mg/dL AO ADM SS Electrolyte Balance 6.0 mEq/L Invalid Interpretation Code 4.0 - 15.0 mEq/L AO ADM SS Ferritin [Mass/Vol] 109.0 ng/mL Invalid Interpretation Code 8.0 - 252.0 ng/mL AO ADM SS GFR/1.73 sq M.predicted among blacks MDRD (S/P/Bld) [Vol rate/Area] 51 ml/min/1.73sqm Invalid Interpretation Code AO Chemistry S Comment on above: Interpretive Data: GFR Population mean for , Non- Americans Ages 20-29 = 116 mL/min/1.73 sq.m. Ages 30-39 = 107 mL/min/1.73 sq.m. Ages 40-49 = 99 mL/min/1.73 sq.m. Ages 50-59 = 93 mL/min/1.73 sq.m. Ages 60-69 = 85 mL/min/1.73 sq.m. Ages 70+ = 75 mL/min/1.73 sq.m. Chronic Kidney Disease: Less than 60 mL/min/1.73 square meters End Stage Renal Disease: Less than 15 mL/min/1.73 square meters GFR/1.73 sq M.predicted among non-blacks MDRD (S/P/Bld) [Vol rate/Area] 42 ml/min/1.73sqm Invalid Interpretation Code AO Chemistry S Comment on above: Interpretive Data: GFR Population mean for , Non- Americans Ages 20-29 = 116 mL/min/1.73 sq.m. Ages 30-39 = 107 mL/min/1.73 sq.m. Ages 40-49 = 99 mL/min/1.73 sq.m. Ages 50-59 = 93 mL/min/1.73 sq.m. Ages 60-69 = 85 mL/min/1.73 sq.m. Ages 70+ = 75 mL/min/1.73 sq.m. Chronic Kidney Disease: Less than 60 mL/min/1.73 square meters End Stage Renal Disease: Less than 15 mL/min/1.73 square meters Globulin 3.1 G/dL Invalid Interpretation Code AO ADM SS Glucose [Mass/Vol] 104 mg/dL Invalid Interpretation Code 83 - 110 mg/dL AO ADM SS LDH [Catalytic activity/Vol] 168 U/L Invalid Interpretation Code 81 - 234 U/L AO ADM SS Magnesium [Mass/Vol] 2.1 mg/dL Invalid Interpretation Code 1.8 - 2.4 mg/dL AO ADM SS Potassium [Moles/Vol] 4.3 mmol/L Invalid Interpretation Code 3.5 - 5.1 mmol/L AO ADM SS Protein [Mass/Vol] 6.8 G/dL Invalid Interpretation Code 6.4 - 8.2 G/dL AO ADM SS Sodium [Moles/Vol] 135 mmol/L Invalid Interpretation Code 136 - 145 mmol/L AO ADM SS Urea nitrogen [Mass/Vol] 20 mg/dL Invalid Interpretation Code 7 - 18 mg/dL AO ADM SS Urea nitrogen/Creatinine [Mass ratio] 16 ratio Invalid Interpretation Code 7 - 27 ratio AO ADM SS LABORATORYOrdered By: Shanti Vincent on 11-28-2022 aPTT Coag (PPP) [Time] 28.7 s Invalid Interpretation Code 25.0 - 35.0 seconds AO [facility] Comment on above: Interpretive Data: F or Heparin anticoagulation therapy, the recommended therapeutic range is: 50.6-87.4 seconds. Patients on heparin therapy may have an extreme result. Fibrin D-dimer DDU (PPP) [Mass/Vol] 533 ng/mL D-DU Invalid Interpretation Code 0 - 230 ng/mL D-DU AO [facility] SS Comment on above: Result Comment: Resu lts reported in D-DU ng/mL. Positive for D-dimer. A positive D-Dimer may occur in the following: DVT, PE, DIC, Trauma, Cancer, Sepsis, , Rheumatoid arthritis, Myocardial infarction and Cirrhosis. The presence of Rheumatoid Factor and HAMA (human mouse antibody) produces an overestimation of test results. Interpretive Data: T he result of the D-Dimer test should be evaluated in the context of all the clinical and laboratory data available. In those instances where the laboratory result does not agree with the clinical evaluation, additional tests should be performed accordingly. If the D-Dimer result is used to exclude DVT or PE, the recommended cutoff value is less than 230 ng/mL. The D-Dimer result should not be used alone to rule in DVT/PE, but should be used in conjunction with a clinical pretest probability (PTP)assessment model to exclude venous thromboembolism (VTE) in outpatients suspected of deep venous thrombosis (DVT) and pulmonary embolism (PE). Heparin dose (APTT) Heparin IV (11/28/22 12:12 AM) Invalid Interpretation Code AO Coagulation S LDHon 11-28-2022 LDH 168 U/L Normal 81-234 [facility] ([place]) Comment on above: Performed By: #### D ZARIA, CMP, GFR, CK, FERR, CRP, LD, MG #### [address] [address] MGon 11-28-2022 Magnesium [Mass/Vol] 2.1 mg/dL Normal 1.8-2.4 [facility] ([place]) Comment on above: Performed By: #### D ZARIA, CMP, GFR, CK, FERR, CRP, LD, MG #### [address] [address] .Auto Diffon 11-27-2022 Basophil, Absolute 0.0 10 3/mcL Normal 0.0-0.2 [facility] ([place]) Comment on above: Performed By: #### L AC #### [address] [address] Basophils/100 WBC (Bld) 0.6 % Normal 0.0-2.5 [facility] ([place]) Comment on above: Performed By: #### L AC #### [address] [address] Eosinophil, Absolute 0.1 10 3/mcL Normal 0.0-0.4 [facility] ([place]) Comment on above: Performed By: #### L AC #### [address] [address] Eosinophils/100 WBC (Bld) 1.6 % Normal 0.0-7.0 [facility] ([place]) Comment on above: Performed By: #### L AC #### [address] [address] Lymphocyte, Absolute 1.1 10 3/mcL Normal 0.8-3.9 [facility] ([place]) Comment on above: Performed By: #### L AC #### [address] [address] Lymphocytes/100 WBC (Bld) 18.5 % Normal 10.0-50.0 [facility] ([place]) Comment on above: Performed By: #### L AC #### [address] [address] Monocyte, Absolute 0.6 10 3/mcL Normal 0.2-1.0 [facility] ([place]) Comment on above: Performed By: #### L AC #### [address] [address] Monocytes/100 WBC (Bld) 11.3 % Normal 1.7-13.0 [facility] ([place]) Comment on above: Performed By: #### L AC #### [address] [address] Neutrophils/100 WBC (Bld) 68.0 % Normal 37.0-80.0 [facility] ([place]) Comment on above: Performed By: #### L AC #### [address] [address] .GFRon 11-27-2022 GFR 65 ml/min/1.73sqm Normal [facility] ([place]) Comment on above: Result Comment: GFR Population mean for , Non- Americans Ages 20-29 = 116 mL/min/1.73 sq.m. Ages 30-39 = 107 mL/min/1.73 sq.m. Ages 40-49 = 99 mL/min/1.73 sq.m. Ages 50-59 = 93 mL/min/1.73 sq.m. Ages 60-69 = 85 mL/min/1.73 sq.m. Ages 70+ = 75 mL/min/1.73 sq.m. Chronic Kidney Disease: Less than 60 mL/min/1.73 square meters End Stage Renal Disease: Less than 15 mL/min/1.73 square meters Performed By: #### L AC #### [address] [address] GFR Non- 54 ml/min/1.73sqm Normal [facility] ([place]) Comment on above: Result Comment: GFR Population mean for , Non- Americans Ages 20-29 = 116 mL/min/1.73 sq.m. Ages 30-39 = 107 mL/min/1.73 sq.m. Ages 40-49 = 99 mL/min/1.73 sq.m. Ages 50-59 = 93 mL/min/1.73 sq.m. Ages 60-69 = 85 mL/min/1.73 sq.m. Ages 70+ = 75 mL/min/1.73 sq.m. Chronic Kidney Disease: Less than 60 mL/min/1.73 square meters End Stage Renal Disease: Less than 15 mL/min/1.73 square meters Performed By: #### L AC #### [address] [address] .MDWon 11-27-2022 Monocyte Distribution Width 24.33 High 0.00-20.00 [facility] ([place]) Comment on above: Result Comment: For adults in ED, MDW>20.0 may be associated with a higher risk of sepsis during the first 12hrs of hospital admission Performed By: #### L AC #### [address] [address] .NEUABSon 11-27-2022 Neutrophil, Absolute 3.9 10 3/mcL Normal 2.9-6.2 [facility] ([place]) Comment on above: Performed By: #### L AC #### [address] [address] BMPon 11-27-2022 BUN/Creatinine Ratio 14 ratio Normal 7-27 [facility] ([place]) Comment on above: Performed By: #### L AC #### [address] [address] Calcium [Mass/Vol] 8.9 mg/dL Normal 8.4-10.2 [facility] ([place]) Comment on above: Performed By: #### L AC #### [address] [address] Chloride [Moles/Vol] 101 mmol/L Normal 98-107 [facility] ([place]) Comment on above: Performed By: #### L AC #### [address] [address] CO2 [Moles/Vol] 25 mmol/L Normal 23-31 [facility] ([place]) Comment on above: Performed By: #### L AC #### [address] [address] Creatinine [Mass/Vol] 0.99 mg/dL Normal 0.55-1.02 [facility] ([place]) Comment on above: Performed By: #### L AC #### [address] [address] Electrolyte Balance 12.0 mEq/L Normal 4.0-15.0 [facility] ([place]) Comment on above: Performed By: #### L AC #### [address] [address] Glucose [Mass/Vol] 106 mg/dL Normal 83-110 [facility] ([place]) Comment on above: Performed By: #### L AC #### [address] [address] Potassium [Moles/Vol] 4.3 mmol/L Normal 3.5-5.1 [facility] ([place]) Comment on above: Performed By: #### L AC #### [address] [address] Sodium [Moles/Vol] 138 mmol/L Normal 136-145 [facility] ([place]) Comment on above: Performed By: #### L AC #### [address] [address] Urea nitrogen [Mass/Vol] 14 mg/dL Normal 7-18 [facility] ([place]) Comment on above: Performed By: #### L AC #### [address] [address] CBCon 11-27-2022 Erythrocyte distribution width (RBC) [Ratio] 13.9 % Normal 11.5-14.5 [facility] ([place]) Comment on above: Performed By: #### L AC #### [address] [address] Hematocrit (Bld) [Volume fraction] 45.5 % Normal 37.0-47.0 [facility] ([place]) Comment on above: Performed By: #### L AC #### [address] [address] Hgb 15.7 G/dL Normal 12.0-16.0 [facility] ([place]) Comment on above: Performed By: #### L AC #### [address] [address] MCH (RBC) [Entitic mass] 30.8 pg Normal 27.0-31.2 [facility] ([place]) Comment on above: Performed By: #### L AC #### [address] [address] MCHC 34.5 G/dL Normal 33.0-37.0 [facility] ([place]) Comment on above: Performed By: #### L AC #### [address] [address] MCV (RBC) [Entitic vol] 89.4 fL Normal 80.0-94.0 [facility] ([place]) Comment on above: Performed By: #### L AC #### [address] [address] Platelet 167 10 3/mcL Normal 130-400 [facility] ([place]) Comment on above: Performed By: #### L AC #### [address] [address] Platelet mean volume (Bld) [Entitic vol] 9.1 fL Normal 7.4-10.4 [facility] ([place]) Comment on above: Performed By: #### L AC #### [address] [address] RBC 5.09 10 6/mcL Normal 4.20-5.40 [facility] ([place]) Comment on above: Performed By: #### L AC #### [address] [address] WBC 5.7 10 3/mcL Normal 4.6-10.8 [facility] ([place]) Comment on above: Performed By: #### L AC #### [address] [address] [id number] 11-27-2022 SARS-CoV-2 (COVID-19) RNA KIRBY+probe Ql (Unsp spec) Positive Abnormal Negative [facility] ([place]) Comment on above: Performed By: #### U CEASAR ORTIZ #### [address] [address] SARS-CoV-2 (COVID-19) RNA KIRBY+probe Ql (Unsp spec) Normal [facility] ([place]) Comment on above: Result Comment: Posi tive results are indicative of the presence of SARS-CoV-2 RNA; clinical correlation with patient history and other diagnostic information is necessary to determine patient infection status. Positive results do not rule out bacterial infection or co-infection with other viruses. The agent detected may not be the definite cause of disease. Laboratories within the [facility] and its territories are required to report all positive results to the appropriate public health authorities. Detection of analyte target(s) does not imply that the corresponding virus(es) are infectious or are the causative agents for clinical symptoms. There is a risk of false positive values resulting from cross-contamination by target organisms, their nucleic acids or amplified product, or from non-specific signals in the assay. JAIME SARS-CoV-2 Assay is a Real-Time reverse-transcriptase polymerase chain reaction (RT-PCR) based qualitative in vitro diagnostic test intended for the qualitative detection of nucleic acid from the SARS-CoV-2 in nasopharyngeal swab specimens collected from individuals suspected of COVID-19 by their healthcare provider. Testing is limited to laboratories certified under the Clinical Laboratory Improvement Amendments of 1988 (CLIA), 42 U.S.C. ?263a, to perform moderate and high complexity tests. COVID-19 Int Performed By: #### CEASAR GASCA #### [place] [address] [address] FLURSVon 11-27-2022 Flu A PCR (AO) Negative Normal Negative [facility] ([place]) Comment on above: Result Comment: Posi tive Results: Positive Flu A/B or RSV for by PCR. Positive test results do not rule out bacterial infection or co-infection with other pathogens. Test results should be interpreted in conjunction with other laboratory and clinical data. Negative Results: Negative for by PCR. Negative test results do not preclude influenza virus or RSV infection and should not be used as the sole basis for diagnosis, treatment, or other management decisions. There is a risk of false negative RSV results when at low concentration and in the presence of co-infection with high concentration of influenza A. Invalid Results: An Invalid result (INV) was obtained. The test was repeated with similar results. REPEAT COLLECTION AND TESTING IS RECOMMENDED. The Jaime Flu A/B & RSV Assay is a real-time polymerase chain reaction (PCR) based qualitative in vitro diagnostic test for the direct detection and differentiation of influenza A virus, influenza B virus, and respiratory syncytial virus (RSV) nucleic acid in nasopharyngeal swab (EXPORT SALES ASSISTANT) specimens from patients with signs and symptoms of respiratory infection in conjunction with clinical and laboratory findings. The test is intended for use as an aid in the differential diagnosis of influenza A virus, influenza B virus, and RSV in humans and is not intended to detect influenza C. Performed By: #### [facility] #### [address] [address] Flu B PCR (AO) Negative Normal Negative [facility] ([place]) Comment on above: Result Comment: Posi tive Results: Positive Flu A/B or RSV for by PCR. Positive test results do not rule out bacterial infection or co-infection with other pathogens. Test results should be interpreted in conjunction with other laboratory and clinical data. Negative Results: Negative for by PCR. Negative test results do not preclude influenza virus or RSV infection and should not be used as the sole basis for diagnosis, treatment, or other management decisions. There is a risk of false negative RSV results when at low concentration and in the presence of co-infection with high concentration of influenza A. Invalid Results: An Invalid result (INV) was obtained. The test was repeated with similar results. REPEAT COLLECTION AND TESTING IS RECOMMENDED. The Jaime Flu A/B & RSV Assay is a real-time polymerase chain reaction (PCR) based qualitative in vitro diagnostic test for the direct detection and differentiation of influenza A virus, influenza B virus, and respiratory syncytial virus (RSV) nucleic acid in nasopharyngeal swab (EXPORT SALES ASSISTANT) specimens from patients with signs and symptoms of respiratory infection in conjunction with clinical and laboratory findings. The test is intended for use as an aid in the differential diagnosis of influenza A virus, influenza B virus, and RSV in humans and is not intended to detect influenza C. Performed By: #### U CEASAR ORTIZ #### [address] [place], [place] [address] RSV PCR (AO) Negative Normal Negative [facility] ([place]) Comment on above: Result Comment: Posi tive Results: Positive Flu A/B or RSV for by PCR. Positive test results do not rule out bacterial infection or co-infection with other pathogens. Test results should be interpreted in conjunction with other laboratory and clinical data. Negative Results: Negative for by PCR. Negative test results do not preclude influenza virus or RSV infection and should not be used as the sole basis for diagnosis, treatment, or other management decisions. There is a risk of false negative RSV results when at low concentration and in the presence of co-infection with high concentration of influenza A. Invalid Results: An Invalid result (INV) was obtained. The test was repeated with similar results. REPEAT COLLECTION AND TESTING IS RECOMMENDED. The Novopyxis Flu A/B & RSV Assay is a real-time polymerase chain reaction (PCR) based qualitative in vitro diagnostic test for the direct detection and differentiation of influenza A virus, influenza B virus, and respiratory syncytial virus (RSV) nucleic acid in nasopharyngeal swab (EXPORT SALES ASSISTANT) specimens from patients with signs and symptoms of respiratory infection in conjunction with clinical and laboratory findings. The test is intended for use as an aid in the differential diagnosis of influenza A virus, influenza B virus, and RSV in humans and is not intended to detect influenza C. Performed By: #### U CEASAR ORTIZ #### [address] [place], [place] [address] LABORATORYOrdered By: Tacho Phillips on 11-27-2022 Appearance (U) Clear (11/27/22 5:46 PM) Invalid Interpretation Code Clear AO Auto Urine SS Bilirubin Ql (U) Negative (11/27/22 5:46 PM) Invalid Interpretation Code Negative AO Auto Urine SS Color (U) Yellow (11/27/22 5:46 PM) Invalid Interpretation Code AO Auto Urine SS Glucose Test strip (U) [Mass/Vol] Negative Invalid Interpretation Code Negative AO Auto Urine SS Hemoglobin Auto test strip (U) [Mass/Vol] Small *ABN* (11/27/22 5:46 PM) Invalid Interpretation Code Negative AO Auto Urine SS Ketones Ql (U) 40 mg/dL Invalid Interpretation Code Negative AO Auto Urine SS UA Leuk Est Negative (11/27/22 5:46 PM) Invalid Interpretation Code Negative AO Auto Urine SS UA Nitrite Negative (11/27/22 5:46 PM) Invalid Interpretation Code Negative AO Auto Urine SS UA pH 6.5 (11/27/22 5:46 PM) Invalid Interpretation Code 5.0 - 8.0 AO Auto Urine SS UA Protein Negative Invalid Interpretation Code Negative AO Auto Urine SS UA Spec Grav 1.025 (11/27/22 5:46 PM) Invalid Interpretation Code 1.015-1.02 5 AO Auto Urine SS UA Specimen Type Clean Catch (11/27/22 5:46 PM) Invalid Interpretation Code AO Auto Urine SS UA Urobilinogen 1.0 E.U./dL Invalid Interpretation Code 0.2-1.0 AO Auto Urine SS LABORATORYOrdered By: SYSTEM SYSTEM on 11-27-2022 Basophil, Absolute 0.0 103/mcL Invalid Interpretation Code 0.0 - 0.2 10^3/mcL AO Workflow SS Basophils/100 WBC (Bld) 0.6 % Invalid Interpretation Code 0.0 - 2.5 % AO Workflow SS Calcium [Mass/Vol] 8.9 mg/dL Invalid Interpretation Code 8.4 - 10.2 mg/dL AO ADM SS Chloride [Moles/Vol] 101 mmol/L Invalid Interpretation Code 98 - 107 mmol/L AO ADM SS CO2 [Moles/Vol] 25 mmol/L Invalid Interpretation Code 23 - 31 mmol/L AO ADM SS Creatinine [Mass/Vol] 0.99 mg/dL Invalid Interpretation Code 0.55 - 1.02 mg/dL AO ADM SS Electrolyte Balance 12.0 mEq/L Invalid Interpretation Code 4.0 - 15.0 mEq/L AO ADM SS Eosinophil, Absolute 0.1 103/mcL Invalid Interpretation Code 0.0 - 0.4 10^3/mcL AO Workflow SS Eosinophils/100 WBC (Bld) 1.6 % Invalid Interpretation Code 0.0 - 7.0 % AO Workflow SS Erythrocyte distribution width (RBC) [Ratio] 13.9 % Invalid Interpretation Code 11.5 - 14.5 % AO Workflow SS GFR/1.73 sq M.predicted among blacks MDRD (S/P/Bld) [Vol rate/Area] 65 ml/min/1.73sqm Invalid Interpretation Code AO Chemistry S Comment on above: Interpretive Data: GFR Population mean for , Non- Americans Ages 20-29 = 116 mL/min/1.73 sq.m. Ages 30-39 = 107 mL/min/1.73 sq.m. Ages 40-49 = 99 mL/min/1.73 sq.m. Ages 50-59 = 93 mL/min/1.73 sq.m. Ages 60-69 = 85 mL/min/1.73 sq.m. Ages 70+ = 75 mL/min/1.73 sq.m. Chronic Kidney Disease: Less than 60 mL/min/1.73 square meters End Stage Renal Disease: Less than 15 mL/min/1.73 square meters GFR/1.73 sq M.predicted among non-blacks MDRD (S/P/Bld) [Vol rate/Area] 54 ml/min/1.73sqm Invalid Interpretation Code AO Chemistry S Comment on above: Interpretive Data: GFR Population mean for , Non- Americans Ages 20-29 = 116 mL/min/1.73 sq.m. Ages 30-39 = 107 mL/min/1.73 sq.m. Ages 40-49 = 99 mL/min/1.73 sq.m. Ages 50-59 = 93 mL/min/1.73 sq.m. Ages 60-69 = 85 mL/min/1.73 sq.m. Ages 70+ = 75 mL/min/1.73 sq.m. Chronic Kidney Disease: Less than 60 mL/min/1.73 square meters End Stage Renal Disease: Less than 15 mL/min/1.73 square meters Glucose [Mass/Vol] 106 mg/dL Invalid Interpretation Code 83 - 110 mg/dL AO ADM SS Hematocrit (Bld) [Volume fraction] 45.5 % Invalid Interpretation Code 37.0 - 47.0 % AO Workflow SS Hemoglobin (Bld) [Mass/Vol] 15.7 G/dL Invalid Interpretation Code 12.0 - 16.0 G/dL AO Workflow SS Lactate [Moles/Vol] 0.9 mmol/L Invalid Interpretation Code 0.4 - 2.0 mmol/L AO ADM SS Lymphocyte, Absolute 1.1 103/mcL Invalid Interpretation Code 0.8 - 3.9 10^3/mcL AO Workflow SS Lymphocytes/100 WBC (Bld) 18.5 % Invalid Interpretation Code 10.0 - 50.0 % AO Workflow SS MCH (RBC) [Entitic mass] 30.8 pg Invalid Interpretation Code 27.0 - 31.2 pg AO Workflow SS MCHC 34.5 G/dL Invalid Interpretation Code 33.0 - 37.0 G/dL AO Workflow SS MCV (RBC) [Entitic vol] 89.4 fL Invalid Interpretation Code 80.0 - 94.0 fL AO Workflow SS Monocyte distribution width Auto (Bld) [Entitic vol] 24.33 1 Invalid Interpretation Code 0.00 - 20.00 AO Workflow SS Comment on above: Result Comment: For adults in ED, MDW>20.0 may be associated with a higher risk of sepsis during the first 12hrs of hospital admission Monocyte, Absolute 0.6 103/mcL Invalid Interpretation Code 0.2 - 1.0 10^3/mcL AO Workflow SS Monocytes/100 WBC (Bld) 11.3 % Invalid Interpretation Code 1.7 - 13.0 % AO Workflow SS Neutrophil, Absolute 3.9 103/mcL Invalid Interpretation Code 2.9 - 6.2 10^3/mcL AO Workflow SS Neutrophils/100 WBC (Bld) 68.0 % Invalid Interpretation Code 37.0 - 80.0 % AO Workflow SS Platelet mean volume (Bld) [Entitic vol] 9.1 fL Invalid Interpretation Code 7.4 - 10.4 fL AO Workflow SS Platelets (Bld) [#/Vol] 167 103/mcL Invalid Interpretation Code 130 - 400 10^3/mcL AO Workflow SS Potassium [Moles/Vol] 4.3 mmol/L Invalid Interpretation Code 3.5 - 5.1 mmol/L AO ADM SS RBC (Bld) [#/Vol] 5.09 106/mcL Invalid Interpretation Code 4.20 - 5.40 10^6/mcL AO Workflow SS Sodium [Moles/Vol] 138 mmol/L Invalid Interpretation Code 136 - 145 mmol/L AO ADM SS Urea nitrogen [Mass/Vol] 14 mg/dL Invalid Interpretation Code 7 - 18 mg/dL AO ADM SS Urea nitrogen/Creatinine [Mass ratio] 14 ratio Invalid Interpretation Code 7 - 27 ratio AO ADM SS WBC (Bld) [#/Vol] 5.7 103/mcL Invalid Interpretation Code 4.6 - 10.8 10^3/mcL AO Workflow SS LABORATORYOrdered By: Shanti Vincent on 11-27-2022 FLUAV RNA KIRBY+probe Ql (Upper resp) Negative 12 (11/27/22 5:26 PM) Invalid Interpretation Code Negative AO Auto Urine SS Comment on above: Interpretive Data: P ositive Results: Positive Flu A/B or RSV for by PCR. Positive test results do not rule out bacterial infection or co-infection with other pathogens. Test results should be interpreted in conjunction with other laboratory and clinical data. Negative Results: Negative for by PCR. Negative test results do not preclude influenza virus or RSV infection and should not be used as the sole basis for diagnosis, treatment, or other management decisions. There is a risk of false negative RSV results when at low concentration and in the presence of co-infection with high concentration of influenza A. Invalid Results: An Invalid result (INV) was obtained. The test was repeated with similar results. REPEAT COLLECTION AND TESTING IS RECOMMENDED. The Novopyxis Flu A/B & RSV Assay is a real-time polymerase chain reaction (PCR) based qualitative in vitro diagnostic test for the direct detection and differentiation of influenza A virus, influenza B virus, and respiratory syncytial virus (RSV) nucleic acid in nasopharyngeal swab (EXPORT SALES ASSISTANT) specimens from patients with signs and symptoms of respiratory infection in conjunction with clinical and laboratory findings. The test is intended for use as an aid in the differential diagnosis of influenza A virus, influenza B virus, and RSV in humans and is not intended to detect influenza C. FLUBV RNA KIRBY+probe Ql (Upper resp) Negative 13 (11/27/22 5:26 PM) Invalid Interpretation Code Negative AO Auto Urine SS Comment on above: Interpretive Data: P ositive Results: Positive Flu A/B or RSV for by PCR. Positive test results do not rule out bacterial infection or co-infection with other pathogens. Test results should be interpreted in conjunction with other laboratory and clinical data. Negative Results: Negative for by PCR. Negative test results do not preclude influenza virus or RSV infection and should not be used as the sole basis for diagnosis, treatment, or other management decisions. There is a risk of false negative RSV results when at low concentration and in the presence of co-infection with high concentration of influenza A. Invalid Results: An Invalid result (INV) was obtained. The test was repeated with similar results. REPEAT COLLECTION AND TESTING IS RECOMMENDED. The Jaime Flu A/B & RSV Assay is a real-time polymerase chain reaction (PCR) based qualitative in vitro diagnostic test for the direct detection and differentiation of influenza A virus, influenza B virus, and respiratory syncytial virus (RSV) nucleic acid in nasopharyngeal swab (EXPORT SALES ASSISTANT) specimens from patients with signs and symptoms of respiratory infection in conjunction with clinical and laboratory findings. The test is intended for use as an aid in the differential diagnosis of influenza A virus, influenza B virus, and RSV in humans and is not intended to detect influenza C. RSV RNA KIRBY+probe Ql (Upper resp) Negative 14 (11/27/22 5:26 PM) Invalid Interpretation Code Negative AO Auto Urine SS Comment on above: Interpretive Data: P ositive Results: Positive Flu A/B or RSV for by PCR. Positive test results do not rule out bacterial infection or co-infection with other pathogens. Test results should be interpreted in conjunction with other laboratory and clinical data. Negative Results: Negative for by PCR. Negative test results do not preclude influenza virus or RSV infection and should not be used as the sole basis for diagnosis, treatment, or other management decisions. There is a risk of false negative RSV results when at low concentration and in the presence of co-infection with high concentration of influenza A. Invalid Results: An Invalid result (INV) was obtained. The test was repeated with similar results. REPEAT COLLECTION AND TESTING IS RECOMMENDED. The Jaime Flu A/B & RSV Assay is a real-time polymerase chain reaction (PCR) based qualitative in vitro diagnostic test for the direct detection and differentiation of influenza A virus, influenza B virus, and respiratory syncytial virus (RSV) nucleic acid in nasopharyngeal swab (EXPORT SALES ASSISTANT) specimens from patients with signs and symptoms of respiratory infection in conjunction with clinical and laboratory findings. The test is intended for use as an aid in the differential diagnosis of influenza A virus, influenza B virus, and RSV in humans and is not intended to detect influenza C. SARS-CoV-2 (COVID-19) RNA KIRBY+probe Ql (Resp) Positive results are indicative of the presence of SARS-CoV-2 RNA; clinical correlation with patient history and other diagnostic information is necessary to determine patient infection status. Positive results do not rule out bacterial infection or co-infection with other viruses. The agent detected may not be the definite cause of disease. Laboratories within the [facility] and its territories are required to report all positive results to the appropriate public health authorities.Detection of analyte target(s) does not imply that the corresponding virus(es) are infectious or are the causative agents for clinical symptoms.There is a risk of false positive values resulting from cross-contamination by target organisms, their nucleic acids or amplified product, or from non-specific signals in the assay.JAIME SARS-CoV-2 Assay is a Real-Time reverse-transcriptase polymerase chain reaction (RT-PCR) based qualitative in vitro diagnostic test intended for the qualitative detection of nucleic acid from the SARS-CoV-2 in nasopharyngeal swab specimens collected from individuals suspected of COVID-19 by their healthcare provider. Testing is limited to laboratories certified under the Clinical Laboratory Improvement Amendments of 1988 (CLIA), 42 U.S.C. 263a, to perform moderate and high complexity tests. Invalid Interpretation Code AO Auto Urine SS LACon 11-27-2022 Lactic Acid Lvl 0.9 mmol/L Normal 0.4-2.0 [facility] ([place]) Comment on above: Performed By: #### L AC #### [address] [address] No Panel Informationon 11-27 Culture Urine No growth to date [facility] Work Phone: Microscopic examination of blood, culture Culture has been received in lab and is no growth to date. Routine cultures are held for 5 days. [facility] Work Phone: UAon 11-27-2022 Color (U) Yellow Normal [facility] ([place]) Comment on above: Performed By: #### U AMICAO UA #### [address] [place], [place] [address] Glucose (U) [Mass/Vol] Negative Normal Negative [facility] ([place]) Comment on above: Performed By: #### U AMICAO UA #### [facility] [address] [place], [place] [address] Ketones Ql (U) 40 mg/dL Abnormal Negative [facility] ([place]) Comment on above: Performed By: #### U AMICAO, UA #### [place] [address] [address] UA Appear Clear Normal Clear [facility] ([place]) Comment on above: Performed By: #### U AMICAO, UA #### [place] [address] [address] UA Blood Small Abnormal Negative [facility] ([place]) Comment on above: Performed By: #### U AMICAO, UA #### [place] [address] [address] UA Leuk Est Negative Normal Negative [facility] ([place]) Comment on above: Performed By: #### U AMICAO, UA #### [place] [address] [address] UA Nitrite Negative Normal Negative [facility] ([place]) Comment on above: Performed By: #### U AMICAO, UA #### [place] [address] UA pH 6.5 Normal 5.0 - 8.0 [facility] ([place]) Comment on above: Performed By: #### U AMICAO, UA #### [address] [address] UA Protein Negative Normal Negative [facility] ([place]) Comment on above: Performed By: #### U AMICAO, UA #### [place] [address] [address] UA Spec Grav 1.025 Normal 1.015-1.02 5 [facility] ([place]) Comment on above: Performed By: #### U AMICAO, UA #### [place] [address] [address] UA Specimen Type Clean Catch Normal [facility] ([place]) Comment on above: Performed By: #### U AMICAO, UA #### [place] [address] [address] UA Urobilinogen 1.0 E.U./dL Normal 0.2-1.0 [facility] ([place]) Comment on above: Performed By: #### U AMICAO, UA #### [address] [place] [address] [place], [place] [address] Urobilinogen (U) [Mass/Vol] Negative Normal Negative [facility] ([place]) Comment on above: Performed By: #### U CEASAR ORTIZ #### [address] [place] [address] [place], [place] [address] XR CHEST 2 VIEWSon 3 XR CHEST 2 VIEWS ORIGINAL EXAMINATION: TWO XRAY VIEWS OF THE [...] resident's findings and interpretation. Interpreted by: Pietro Arreola Preliminary Report By: David Gomez Electronically signed By Pietro Arreola Dictated Date: 11/27/2022 6:28:44 PM Prelim Date: 11/27/2022 6:30:51 PM Sign Date: 11/27/2022 7:56:52 PM Ordering Provider: RAUL Mondragon [facility] ([place]) Absolute lymphocyte countOrd ered By: Nelly Goff on 09-12-2022 Lymphocytes Auto (Unsp spec) [#/Vol] 2.70 10*3/uL 0.83-4.51 [facility] Basophil percentageOrdered B y: Nelly Goff on 09-12-2022 Basophils/100 WBC (Bld) 1.0 % 0-1 [facility] Bilirubin [Mass/Vol] 0.80 mg/dL 0.20-1.00 [facility] Comment on above: For patients on eltr ombopag therapy, use of [facility] [place] TBIL is not recommended. Chloride [Moles/Vol] 106 mmol/L 98-107 [facility] Eosinophils/100 WBC (Bld) 2.7 % 0-5 [facility] Glucose [Mass/Vol] 106 mg/dL 74-106 [facility] Comment on above: Fasting Glucose resu lt from 100 to 125 mg/dL suggests IMPAIRED HOMEOSTASIS per A.D.A. criteria. Neutrophils (Bld) [#/Vol] 3.0 10*3/uL 2.0-7.7 [facility] Neutrophils/100 WBC (Bld) 45.1 % 47-70 [facility] Potassium [Moles/Vol] 4.3 mmol/L 3.5-5.1 [facility] Protein [Mass/Vol] 7.4 g/dL 6.4-8.2 [facility] Sodium [Moles/Vol] 137 mmol/L 136-145 [facility] WBC (Bld) [#/Vol] 6.7 10*3/uL 4.4-11.0 [facility] Blood erythrocytes count (nu mber/volume)Ordered By: Nelly Goff on 09-12-2022 RBC (Bld) [#/Vol] 4.87 10*6/uL 4.2-5.4 [facility] Blood hemoglobin measurement (mass/volume)Ordered By: Nelly Goff on 09-12-2022 Hemoglobin (Bld) [Mass/Vol] 14.9 g/dL 12.0-15.0 [facility] Blood lymphocytes/100 leukoc ytesOrdered By: Nelly Goff on 09-12-2022 Lymphocytes/100 WBC (Bld) 40.2 % 19-41 [facility] Blood manual differential co mment interpretation (narrative result)Ordered By: Nelly Goff on 09-12-2022 Manual differential comment Carmelo (Bld) [Interp] SCANNED [facility] Blood monocytes/100 leukocyt esOrdered By: Nelly Goff on 09-12-2022 Monocytes/100 WBC (Bld) 10.4 % 0-10 [facility] Blood platelet mean volumeOr dered By: Nelly Goff on 09-12-2022 Platelet mean volume (Bld) [Entitic vol] 11.1 fL 6.2-12.0 [facility] Determination of erythrocyte mean corpuscular volume (MCV)Ordered By: Nelly Goff on 09-12-2022 MCV (RBC) [Entitic vol] 92.4 fL 81-99 [facility] Hematocrit Auto (Bld) [Volum e fraction]Ordered By: Nelly Goff on 09-12-2022 Hematocrit (Bld) [Volume fraction] 45.0 % 37-47 [facility] Laboratory - Chemistry and C hemistry - challengeOrdered By: Nelly Goff on 09-12-2022 ALP [Catalytic activity/Vol] 69 U/L 45-117 [facility] ALT [Catalytic activity/Vol] 26 U/L 13-56 [facility] CO2 [Moles/Vol] 27.0 mmol/L 21.0-32.0 [facility] Globulin (S) [Mass/Vol] 4.0 g/dL 2.2-4.2 [facility] Urea nitrogen/Creatinine [Mass ratio] 13.3 mg/mg 10-20 [facility] Laboratory - Hematology and Cell countsOrdered By: Nellynic Goff on 09-12-2022 Erythrocyte distribution width (RBC) [Entitic vol] 44.1 fL 35.1-43.9 [facility] Erythrocyte distribution width (RBC) [Ratio] 13.0 % 11.6-14.6 [facility] Immature granulocytes/100 WBC (Bld) 0.600 % 0.0-0.9 [facility] Comment on above: IG% - Immature Granu locytes (promyelocytes, myelocytes and metamyelocytes) > 1% indicates that a LEFT SHIFT is Present. MCH (RBC) [Entitic mass] 30.6 pg 27.0-32.0 [facility] Nucleated RBC/100 WBC (Bld) [Ratio] 0 % 0-5 [facility] MCHC Auto (RBC) [Mass/Vol]Or dered By: Nelly Goff on 09-12-2022 MCHC (RBC) [Mass/Vol] 33.1 g/dL 32-36 [facility] No Panel InformationOrdered By: Nellynic Goff on 09-12-2022 Estimated GFR (MDRD) Amer 85 mL/min >60 [facility] Comment on above: GFR Calc Estimated GFR (MDRD) Non-Af Amer 70 mL/min >60 [facility] Comment on above: Non- GFR Calc Reactive Lymphocytes 2+ [facility] Platelets bldOrdered By: Greg Goff on 09-12-2022 Platelets (Bld) [#/Vol] 227 10*3/uL 150-450 [facility] Serum or plasma albumin guicho urement (mass/volume)Ordered By: Nelly Goff on 09-12-2022 Albumin [Mass/Vol] 3.4 g/dL 3.2-5.0 [facility] Serum or plasma albumin/glob ulin mass ratioOrdered By: Nelly Goff on 09-12-2022 Albumin/Globulin [Mass ratio] 0.8 {ratio} 0.9-2.4 [facility] Serum or plasma calcium guicho urement (mass/volume)Ordered By: Nelly Goff on 09-12-2022 Calcium [Mass/Vol] 9.3 mg/dL 8.5-10.1 [facility] Serum or plasma creatinine m easurement (mass/volume)Ordered By: Nelly Goff on 09-12-2022 Creatinine [Mass/Vol] 0.83 mg/dL 0.55-1.02 [facility] Comment on above: The validity of the calculated GFR & GFRAA in patients over 70 years has not been determined. Clinical correlation is essential. Serum or plasma urea nitroge n measurement (mass/volume)Ordered By: Nelly Goff on 09-12-2022 Urea nitrogen [Mass/Vol] 11 mg/dL 7-18 [facility] Thin prep Papanicolaou smear with manual screeningOrdered By: Nelly Goff on 09-12-2022 Thin prep Papanicolaou smear with manual screening 18 U/L 15-37 [facility] Thin prep Papanicolaou smear with manual screening 4 5-15 [facility] .Auto Diffon 09-07-2022 Basophil, Absolute 0.1 10 3/mcL Normal 0.0-0.2 [facility] ([place]) Comment on above: Performed By: #### U CEASAR ORTIZ #### [place] [address] [address] Basophils/100 WBC (Bld) 0.8 % Normal 0.0-2.5 [facility] ([place]) Comment on above: Performed By: #### CEASAR GASCA #### [address] [address] Eosinophil, Absolute 0.1 10 3/mcL Normal 0.0-0.4 [facility] ([place]) Comment on above: Performed By: #### CEASAR GASCA #### [place] [address] [address] Eosinophils/100 WBC (Bld) 1.0 % Normal 0.0-7.0 [facility] ([place]) Comment on above: Performed By: #### CEASAR GASCA #### [place] [address] [address] Lymphocyte, Absolute 2.1 10 3/mcL Normal 0.8-3.9 [facility] ([place]) Comment on above: Performed By: #### CEASAR GASCA #### [address] [address] Lymphocytes/100 WBC (Bld) 17.9 % Normal 10.0-50.0 [facility] ([place]) Comment on above: Performed By: #### CEASAR GASCA #### [place] [address] [address] Monocyte, Absolute 1.0 10 3/mcL Normal 0.2-1.0 [facility] ([place]) Comment on above: Performed By: #### CEASAR GASCA #### [place] [address] [address] Monocytes/100 WBC (Bld) 8.5 % Normal 1.7-13.0 [facility] ([place]) Comment on above: Performed By: #### CEASAR GASCA #### [place] [address] [address] Neutrophils/100 WBC (Bld) 71.8 % Normal 37.0-80.0 [facility] ([place]) Comment on above: Performed By: #### CEASAR GASCA #### [place] [address] [address] .GFRon 09-07-2022 GFR 71 ml/min/1.73sqm Normal [facility] ([place]) Comment on above: Result Comment: GFR Population mean for , Non- Americans Ages 20-29 = 116 mL/min/1.73 sq.m. Ages 30-39 = 107 mL/min/1.73 sq.m. Ages 40-49 = 99 mL/min/1.73 sq.m. Ages 50-59 = 93 mL/min/1.73 sq.m. Ages 60-69 = 85 mL/min/1.73 sq.m. Ages 70+ = 75 mL/min/1.73 sq.m. Chronic Kidney Disease: Less than 60 mL/min/1.73 square meters End Stage Renal Disease: Less than 15 mL/min/1.73 square meters Performed By: #### CEASAR GASCA #### [place] [address] [address] GFR Non- 59 ml/min/1.73sqm Normal [facility] ([place]) Comment on above: Result Comment: GFR Population mean for , Non- Americans Ages 20-29 = 116 mL/min/1.73 sq.m. Ages 30-39 = 107 mL/min/1.73 sq.m. Ages 40-49 = 99 mL/min/1.73 sq.m. Ages 50-59 = 93 mL/min/1.73 sq.m. Ages 60-69 = 85 mL/min/1.73 sq.m. Ages 70+ = 75 mL/min/1.73 sq.m. Chronic Kidney Disease: Less than 60 mL/min/1.73 square meters End Stage Renal Disease: Less than 15 mL/min/1.73 square meters Performed By: #### CEASAR GASCA #### [place] [address] [address] .MDWon 09-07-2022 Monocyte Distribution Width 21.73 High 0.00-20.00 [facility] ([place]) Comment on above: Result Comment: For adults in ED, MDW>20.0 may be associated with a higher risk of sepsis during the first 12hrs of hospital admission Performed By: #### U AMICAO UA #### [address] [address] .NEUABSon 09-07-2022 Neutrophil, Absolute 8.6 10 3/mcL High 2.9-6.2 [facility] ([place]) Comment on above: Performed By: #### U AMICAO, UA #### [place] [id number] .Urinalysis Microscopic (AO) on 09-07-2022 UA Bacteria 4+ /hpf Abnormal [facility] ([place]) Comment on above: Performed By: #### U AMICAO, UA #### [place] [id number] UA RBC 0-5 Abnormal None Seen [facility] ([place]) Comment on above: Performed By: #### U AMICAO, UA #### [place] [id number] UA Squam Epithelial None Seen Normal None Seen [facility] ([place]) Comment on above: Performed By: #### U AMICAO, UA #### [place] [id number] UA WBC LOADED Abnormal None Seen [facility] ([place]) Comment on above: Performed By: #### U AMICAO, UA #### [address] [address] BMPon 09-07-2022 BUN/Creatinine Ratio 15 ratio Normal 7-27 [facility] ([place]) Comment on above: Performed By: #### U AMICAO, UA #### [address] [address] Calcium [Mass/Vol] 9.0 mg/dL Normal 8.4-10.2 [facility] ([place]) Comment on above: Performed By: #### U AMICAO, UA #### [address] [address] Chloride [Moles/Vol] 104 mmol/L Normal 98-107 [facility] ([place]) Comment on above: Performed By: #### U AMICAO, UA #### [address] [address] CO2 [Moles/Vol] 30 mmol/L Normal 23-31 [facility] ([place]) Comment on above: Performed By: #### U AMICAO, UA #### [address] [address] Creatinine [Mass/Vol] 0.92 mg/dL Normal 0.55-1.02 [facility] ([place]) Comment on above: Performed By: #### U AMICAO, UA #### [address] [address] Electrolyte Balance 7.0 mEq/L Normal 4.0-15.0 [facility] ([place]) Comment on above: Performed By: #### U AMICAO, UA #### [address] [address] Glucose [Mass/Vol] 106 mg/dL Normal 83-110 [facility] ([place]) Comment on above: Performed By: #### U AMICAO, UA #### [address] [address] Potassium [Moles/Vol] 4.4 mmol/L Normal 3.5-5.1 [facility] ([place]) Comment on above: Performed By: #### U AMICAO, UA #### [address] [address] Sodium [Moles/Vol] 141 mmol/L Normal 136-145 [facility] ([place]) Comment on above: Performed By: #### U AMICAO, UA #### [address] [address] Urea nitrogen [Mass/Vol] 14 mg/dL Normal 7-18 [facility] ([place]) Comment on above: Performed By: #### U AMICAO, UA #### [address] [address] CBCon 09-07-2022 Erythrocyte distribution width (RBC) [Ratio] 13.9 % Normal 11.5-14.5 [facility] ([place]) Comment on above: Performed By: #### CEASAR GASCA #### [place] [address] [address] Hematocrit (Bld) [Volume fraction] 44.8 % Normal 37.0-47.0 [facility] ([place]) Comment on above: Performed By: #### CEASAR GASCA #### [place] [address] [address] Hgb 15.4 G/dL Normal 12.0-16.0 [facility] ([place] Comment on above: Performed By: #### CEASAR GASCA #### [place] [address] [address] MCH (RBC) [Entitic mass] 30.9 pg Normal 27.0-31.2 [facility] ([place]) Comment on above: Performed By: #### CEASAR GASCA #### [place] [address] [address] MCHC 34.4 G/dL Normal 33.0-37.0 [facility] ([place]) Comment on above: Performed By: #### CEASAR GASCA #### [place] [address] [address] MCV (RBC) [Entitic vol] 90.0 fL Normal 80.0-94.0 [facility] ([place]) Comment on above: Performed By: #### CEASAR GASCA #### [place] [address] [address] Platelet 162 10 3/mcL Normal 130-400 [facility] ([place]) Comment on above: Performed By: #### CEASAR GASCA #### [place] [address] [address] Platelet mean volume (Bld) [Entitic vol] 9.4 fL Normal 7.4-10.4 [facility] ([place]) Comment on above: Performed By: #### CEASAR GASCA #### [place] [address] [place], [place] [address] RBC 4.97 10 6/mcL Normal 4.20-5.40 [facility] ([place]) Comment on above: Performed By: #### U ANGEL UA #### [address] [place] [address] [place], [place] [address] WBC 12.0 10 3/mcL High 4.6-10.8 [facility] ([place]) Comment on above: Performed By: #### U ANGEL UA #### [address] [place] [address] [place], [place] [address] LABORATORYOrdered By: Claudine Conley on 09-07-2022 Appearance (U) Slightly Cloudy *ABN* (09/07/22 4:09 PM) Invalid Interpretation Code Clear AO Auto Urine SS Bacteria LM.HPF (Urine sed) [#/Area] 4 /[HPF] Invalid Interpretation Code AO Auto Urine SS Bilirubin Ql (U) Negative (09/07/22 4:09 PM) Invalid Interpretation Code Negative AO Auto Urine SS Color (U) Yellow (09/07/22 4:09 PM) Invalid Interpretation Code AO Auto Urine SS Glucose Test strip (U) [Mass/Vol] Negative Invalid Interpretation Code Negative AO Auto Urine SS Hemoglobin Auto test strip (U) [Mass/Vol] Trace *ABN* (09/07/22 4:09 PM) Invalid Interpretation Code Negative AO Auto Urine SS Ketones Ql (U) Negative Invalid Interpretation Code Negative AO Auto Urine SS UA Leuk Est Small *ABN* (09/07/22 4:09 PM) Invalid Interpretation Code Negative AO Auto Urine SS UA Nitrite Positive *ABN* (09/07/22 4:09 PM) Invalid Interpretation Code Negative AO Auto Urine SS UA pH 7.5 (09/07/22 4:09 PM) Invalid Interpretation Code 5.0 - 8.0 AO Auto Urine SS UA Protein Negative Invalid Interpretation Code Negative AO Auto Urine SS UA RBC 0-5 /HPF Invalid Interpretation Code None Seen AO Auto Urine SS UA Spec Grav 1.020 (09/07/22 4:09 PM) Invalid Interpretation Code 1.015-1.02 5 AO Auto Urine SS UA Specimen Type Void (09/07/22 4:09 PM) Invalid Interpretation Code AO Auto Urine SS UA Squam Epithelial None Seen /HPF Invalid Interpretation Code None Seen AO Auto Urine SS UA Urobilinogen 0.2 E.U./dL Invalid Interpretation Code 0.2-1.0 AO Auto Urine SS WBC LM.HPF (Urine sed) [#/Area] LOADED /HPF Invalid Interpretation Code None Seen AO Auto Urine SS LABORATORYOrdered By: SYSTEM SYSTEM on 09-07-2022 Basophil, Absolute 0.1 103/mcL Invalid Interpretation Code 0.0 - 0.2 10^3/mcL AO Workflow SS Basophils/100 WBC (Bld) 0.8 % Invalid Interpretation Code 0.0 - 2.5 % AO Workflow SS Calcium [Mass/Vol] 9.0 mg/dL Invalid Interpretation Code 8.4 - 10.2 mg/dL AO ADM SS Chloride [Moles/Vol] 104 mmol/L Invalid Interpretation Code 98 - 107 mmol/L AO ADM SS CO2 [Moles/Vol] 30 mmol/L Invalid Interpretation Code 23 - 31 mmol/L AO ADM SS Creatinine [Mass/Vol] 0.92 mg/dL Invalid Interpretation Code 0.55 - 1.02 mg/dL AO ADM SS Electrolyte Balance 7.0 mEq/L Invalid Interpretation Code 4.0 - 15.0 mEq/L AO ADM SS Eosinophil, Absolute 0.1 103/mcL Invalid Interpretation Code 0.0 - 0.4 10^3/mcL AO Workflow SS Eosinophils/100 WBC (Bld) 1.0 % Invalid Interpretation Code 0.0 - 7.0 % AO Workflow SS Erythrocyte distribution width (RBC) [Ratio] 13.9 % Invalid Interpretation Code 11.5 - 14.5 % AO Workflow SS GFR/1.73 sq M.predicted among blacks MDRD (S/P/Bld) [Vol rate/Area] 71 ml/min/1.73sqm Invalid Interpretation Code AO Chemistry S Comment on above: Interpretive Data: GFR Population mean for , Non- Americans Ages 20-29 = 116 mL/min/1.73 sq.m. Ages 30-39 = 107 mL/min/1.73 sq.m. Ages 40-49 = 99 mL/min/1.73 sq.m. Ages 50-59 = 93 mL/min/1.73 sq.m. Ages 60-69 = 85 mL/min/1.73 sq.m. Ages 70+ = 75 mL/min/1.73 sq.m. Chronic Kidney Disease: Less than 60 mL/min/1.73 square meters End Stage Renal Disease: Less than 15 mL/min/1.73 square meters GFR/1.73 sq M.predicted among non-blacks MDRD (S/P/Bld) [Vol rate/Area] 59 ml/min/1.73sqm Invalid Interpretation Code AO Chemistry S Comment on above: Interpretive Data: GFR Population mean for , Non- Americans Ages 20-29 = 116 mL/min/1.73 sq.m. Ages 30-39 = 107 mL/min/1.73 sq.m. Ages 40-49 = 99 mL/min/1.73 sq.m. Ages 50-59 = 93 mL/min/1.73 sq.m. Ages 60-69 = 85 mL/min/1.73 sq.m. Ages 70+ = 75 mL/min/1.73 sq.m. Chronic Kidney Disease: Less than 60 mL/min/1.73 square meters End Stage Renal Disease: Less than 15 mL/min/1.73 square meters Glucose [Mass/Vol] 106 mg/dL Invalid Interpretation Code 83 - 110 mg/dL AO ADM SS Hematocrit (Bld) [Volume fraction] 44.8 % Invalid Interpretation Code 37.0 - 47.0 % AO Workflow SS Hemoglobin (Bld) [Mass/Vol] 15.4 G/dL Invalid Interpretation Code 12.0 - 16.0 G/dL AO Workflow SS Lymphocyte, Absolute 2.1 103/mcL Invalid Interpretation Code 0.8 - 3.9 10^3/mcL AO Workflow SS Lymphocytes/100 WBC (Bld) 17.9 % Invalid Interpretation Code 10.0 - 50.0 % AO Workflow SS MCH (RBC) [Entitic mass] 30.9 pg Invalid Interpretation Code 27.0 - 31.2 pg AO Workflow SS MCHC 34.4 G/dL Invalid Interpretation Code 33.0 - 37.0 G/dL AO Workflow SS MCV (RBC) [Entitic vol] 90.0 fL Invalid Interpretation Code 80.0 - 94.0 fL AO Workflow SS Monocyte distribution width Auto (Bld) [Entitic vol] 21.73 1 Invalid Interpretation Code 0.00 - 20.00 AO Workflow SS Comment on above: Result Comment: For adults in ED, MDW>20.0 may be associated with a higher risk of sepsis during the first 12hrs of hospital admission Monocyte, Absolute 1.0 103/mcL Invalid Interpretation Code 0.2 - 1.0 10^3/mcL AO Workflow SS Monocytes/100 WBC (Bld) 8.5 % Invalid Interpretation Code 1.7 - 13.0 % AO Workflow SS Neutrophil, Absolute 8.6 103/mcL Invalid Interpretation Code 2.9 - 6.2 10^3/mcL AO Workflow SS Neutrophils/100 WBC (Bld) 71.8 % Invalid Interpretation Code 37.0 - 80.0 % AO Workflow SS Platelet mean volume (Bld) [Entitic vol] 9.4 fL Invalid Interpretation Code 7.4 - 10.4 fL AO Workflow SS Platelets (Bld) [#/Vol] 162 103/mcL Invalid Interpretation Code 130 - 400 10^3/mcL AO Workflow SS Potassium [Moles/Vol] 4.4 mmol/L Invalid Interpretation Code 3.5 - 5.1 mmol/L AO ADM SS RBC (Bld) [#/Vol] 4.97 106/mcL Invalid Interpretation Code 4.20 - 5.40 10^6/mcL AO Workflow SS Sodium [Moles/Vol] 141 mmol/L Invalid Interpretation Code 136 - 145 mmol/L AO ADM SS Urea nitrogen [Mass/Vol] 14 mg/dL Invalid Interpretation Code 7 - 18 mg/dL AO ADM SS Urea nitrogen/Creatinine [Mass ratio] 15 ratio Invalid Interpretation Code 7 - 27 ratio AO ADM SS WBC (Bld) [#/Vol] 12.0 103/mcL Invalid Interpretation Code 4.6 - 10.8 10^3/mcL AO Workflow SS UAon 09-07-2022 Color (U) Yellow Normal [facility] ([place]) Comment on above: Performed By: #### U CEASAR ORTIZ #### [place] [address] [address] Glucose (U) [Mass/Vol] Negative Normal Negative [facility] ([place]) Comment on above: Performed By: #### U CEASAR ORTIZ #### [place] [address] [address] Ketones Ql (U) Negative Normal Negative [facility] ([place]) Comment on above: Performed By: #### U CEASAR ORTIZ #### [place] [address] [address] UA Appear Slightly Cloudy Abnormal Clear [facility] ([place]) Comment on above: Performed By: #### U AMICAO, UA #### [place] [address] [address] UA Blood Trace Abnormal Negative [facility] ([place]) Comment on above: Performed By: #### U AMICAO, UA #### [place] [place] [id number] UA Leuk Est Small Abnormal Negative [facility] ([place]) Comment on above: Performed By: #### U AMICAO, UA #### [place] [address] UA Nitrite Positive Abnormal Negative [facility] ([place]) Comment on above: Performed By: #### U AMICAO, UA #### [place] [address] UA pH 7.5 Normal 5.0 - 8.0 [facility] ([place]) Comment on above: Performed By: #### U AMICAO, UA #### [place] [address] UA Protein Negative Normal Negative [facility] ([place]) Comment on above: Performed By: #### U AMICAO, UA #### [place] [place] [id number] UA Spec Grav 1.020 Normal 1.015-1.02 5 [facility] ([place]) Comment on above: Performed By: #### U AMICAO, UA #### [place] [address] [address] UA Specimen Type Void Normal [facility] ([place]) Comment on above: Performed By: #### U AMICAO, UA #### [place] [address] [address] UA Urobilinogen 0.2 E.U./dL Normal 0.2-1.0 [facility] ([place]) Comment on above: Performed By: #### U AMICAO, UA #### [place] [place] [id number] Urobilinogen (U) [Mass/Vol] Negative Normal Negative [facility] ([place]) Comment on above: Performed By: #### U CEASAR ORTIZ #### [facility] [address] [place], [place] [address] Absolute lymphocyte countOrd ered By: Dr. Goff on 06-18-2022 Lymphocytes Auto (Unsp spec) [#/Vol] 2.98 10*3/uL 0.83-4.51 [facility] Basophil percentageOrdered B y: Dr. Goff on 06-18-2022 Basophils/100 WBC (Bld) 1.0 % 0-1 [facility] Bilirubin [Mass/Vol] 0.80 mg/dL 0.20-1.00 [facility] Comment on above: For patients on eltr ombopag therapy, use of Dimension [place] TBIL is not recommended. Chloride [Moles/Vol] 108 mmol/L 98-107 [facility] Eosinophils/100 WBC (Bld) 2.3 % 0-5 [facility] Glucose [Mass/Vol] 112 mg/dL 74-106 [facility] Comment on above: Fasting Glucose resu lt from 100 to 125 mg/dL suggests IMPAIRED HOMEOSTASIS per A.D.A. criteria. Neutrophils (Bld) [#/Vol] 3.4 10*3/uL 2.0-7.7 [facility] Neutrophils/100 WBC (Bld) 47.2 % 47-70 [facility] Potassium [Moles/Vol] 4.1 mmol/L 3.5-5.1 [facility] Protein [Mass/Vol] 7.3 g/dL 6.4-8.2 [facility] Sodium [Moles/Vol] 139 mmol/L 136-145 [facility] WBC (Bld) [#/Vol] 7.2 10*3/uL 4.4-11.0 [facility] Blood erythrocytes count (nu mber/volume)Ordered By: Dr. Goff on 06-18-2022 RBC (Bld) [#/Vol] 5.11 10*6/uL 4.2-5.4 [facility] Blood hemoglobin measurement (mass/volume)Ordered By: Dr. Goff on 06-18-2022 Hemoglobin (Bld) [Mass/Vol] 16.2 g/dL 12.0-15.0 [facility] Blood lymphocytes/100 leukoc ytesOrdered By: Dr. Goff on 06-18-2022 Lymphocytes/100 WBC (Bld) 41.2 % 19-41 [facility] Blood monocytes/100 leukocyt esOrdered By: Dr. Goff on 06-18-2022 Monocytes/100 WBC (Bld) 7.7 % 0-10 [facility] Blood platelet mean volumeOr dered By: Dr. Goff on 06-18-2022 Platelet mean volume (Bld) [Entitic vol] 11.8 fL 6.2-12.0 [facility] Determination of erythrocyte mean corpuscular volume (MCV)Ordered By: Dr. Goff on 06-18-2022 MCV (RBC) [Entitic vol] 92.2 fL 81-99 [facility] Hematocrit Auto (Bld) [Volum e fraction]Ordered By: Dr. Goff on 06-18-2022 Hematocrit (Bld) [Volume fraction] 47.1 % 37-47 [facility] Laboratory - Chemistry and C hemistry - challengeOrdered By: Dr. Goff on 06-18-2022 ALP [Catalytic activity/Vol] 71 U/L 45-117 [facility] ALT [Catalytic activity/Vol] 29 U/L 13-56 [facility] CO2 [Moles/Vol] 24.0 mmol/L 21.0-32.0 [facility] Globulin (S) [Mass/Vol] 3.4 g/dL 2.2-4.2 [facility] Urea nitrogen/Creatinine [Mass ratio] 15.4 mg/mg 10-20 [facility] Laboratory - Hematology and Cell countsOrdered By: Dr. Goff on 06-18-2022 Erythrocyte distribution width (RBC) [Entitic vol] 43.6 fL 35.1-43.9 [facility] Erythrocyte distribution width (RBC) [Ratio] 12.9 % 11.6-14.6 [facility] Immature granulocytes/100 WBC (Bld) 0.600 % 0.0-0.9 [facility] Comment on above: IG% - Immature Granu locytes (promyelocytes, myelocytes and metamyelocytes) > 1% indicates that a LEFT SHIFT is Present. MCH (RBC) [Entitic mass] 31.7 pg 27.0-32.0 [facility] Nucleated RBC/100 WBC (Bld) [Ratio] 0 % 0-5 [facility] MCHC Auto (RBC) [Mass/Vol]Or dered By: Dr. Goff on 06-18-2022 MCHC (RBC) [Mass/Vol] 34.4 g/dL 32-36 [facility] No Panel InformationOrdered By: Dr. Goff on 06-18-2022 Estimated GFR (MDRD) Amer 77 mL/min >60 [facility] Comment on above: GFR Calc Estimated GFR (MDRD) Non-Af Amer 63 mL/min >60 [facility] Comment on above: Non- GFR Calc Platelets bldOrdered By: Dr. Goff on 06-18-2022 Platelets (Bld) [#/Vol] 221 10*3/uL 150-450 [facility] Serum or plasma albumin guicho urement (mass/volume)Ordered By: Dr. Goff on 06-18-2022 Albumin [Mass/Vol] 3.9 g/dL 3.2-5.0 [facility] Serum or plasma albumin/glob ulin mass ratioOrdered By: Dr. Goff on 06-18-2022 Albumin/Globulin [Mass ratio] 1.1 {ratio} 0.9-2.4 [facility] Serum or plasma calcium guicho urement (mass/volume)Ordered By: Dr. Goff on 06-18-2022 Calcium [Mass/Vol] 9.5 mg/dL 8.5-10.1 [facility] Serum or plasma creatinine m easurement (mass/volume)Ordered By: Dr. Goff on 06-18-2022 Creatinine [Mass/Vol] 0.91 mg/dL 0.55-1.02 [facility] Comment on above: The validity of the calculated GFR & GFRAA in patients over 70 years has not been determined. Clinical correlation is essential. Serum or plasma urea nitroge n measurement (mass/volume)Ordered By: Dr. Goff on 06-18-2022 Urea nitrogen [Mass/Vol] 14 mg/dL 7-18 [facility] Thin prep Papanicolaou smear with manual screeningOrdered By: Dr. Goff on 06-18-2022 Thin prep Papanicolaou smear with manual screening 21 U/L 15-37 [facility] Thin prep Papanicolaou smear with manual screening 7 5-15 [facility] Qualitative QuantiFERON-TB g old in tube testOrdered By: Dr. Goff on 05-16-2022 M. tuberculosis tuberculin stim IFN-g Ql (Bld) 0.19 IU/mL . [facility] Thin prep Papanicolaou smear with manual screeningOrdered By: Dr. Goff on 05-16-2022 Thin prep Papanicolaou smear with manual screening Comment . [facility] Comment on above: QuantiFERON-TB Gold Plus is a qualitative indirect test forM tuberculosis infection (including disease) and isintended for use in conjunction with risk assessment,radiography, and other medical and diagnostic evaluations.The QuantiFERON-TB Gold Plus result is determined bysubtracting the Nil value from either TB antigen (Ag)value. The Mitogen tube serves as a control for the test. Thin prep Papanicolaou smear with manual screening 0.47 IU/mL . [facility] Thin prep Papanicolaou smear with manual screening 0.16 IU/mL . [facility] Thin prep Papanicolaou smear with manual screening > 10.00 IU/mL . [facility] Thin prep Papanicolaou smear with manual screening Negative Negative [facility] Comment on above: No response to M tub erculosis antigens detected.Infection with M tuberculosis is unlikely, but high riskindividuals should be considered for additional testing(ATS/IDSA/CDC Clinical Practice Guidelines, 2017). Thereference range is an Antigen minus Nil result of <0.35IU/mL.The specimen received for QuantiFERON testing was incubatedby the ordering institution. Specific procedures outlinedin our Directory of Services and in the package insert forthe QuantiFERON Gold (In Tube) test must be followed toenable for proper stimulation of cells for the productionof interferon gamma. Chemiluminescence immunoassaymethodologyPerformed at: [facility] [employer] [id number] Director: Reggie Finch PhD, Phone: [phone] Absolute lymphocyte countOrd ered By: Dr. Goff on 03-28-2022 Lymphocytes Auto (Unsp spec) [#/Vol] 2.71 10*3/uL 0.83-4.51 [facility] Basophil percentageOrdered B y: Dr. Goff on 03-28-2022 Basophils/100 WBC (Bld) 0.7 % 0-1 [facility] Bilirubin [Mass/Vol] 0.70 mg/dL 0.20-1.00 [facility] Comment on above: For patients on eltr ombopag therapy, use of Dim[place] TBIL is not recommended. Chloride [Moles/Vol] 106 mmol/L 98-107 [facility] Eosinophils/100 WBC (Bld) 3.8 % 0-5 [facility] Glucose [Mass/Vol] 109 mg/dL 74-106 [facility] Comment on above: Fasting Glucose resu lt from 100 to 125 mg/dL suggests IMPAIRED HOMEOSTASIS per A.D.A. criteria. Neutrophils (Bld) [#/Vol] 3.5 10*3/uL 2.0-7.7 [facility] Neutrophils/100 WBC (Bld) 49.0 % 47-70 [facility] Potassium [Moles/Vol] 4.1 mmol/L 3.5-5.1 [facility] Protein [Mass/Vol] 7.0 g/dL 6.4-8.2 [facility] Sodium [Moles/Vol] 137 mmol/L 136-145 [facility] WBC (Bld) [#/Vol] 7.1 10*3/uL 4.4-11.0 [facility] Blood erythrocytes count (nu mber/volume)Ordered By: Dr. Goff on 03-28-2022 RBC (Bld) [#/Vol] 4.90 10*6/uL 4.2-5.4 [facility] Blood hemoglobin measurement (mass/volume)Ordered By: Dr. Goff on 03-28-2022 Hemoglobin (Bld) [Mass/Vol] 15.6 g/dL 12.0-15.0 [facility] Blood lymphocytes/100 leukoc ytesOrdered By: Dr. Goff on 03-28-2022 Lymphocytes/100 WBC (Bld) 38.3 % 19-41 [facility] Blood monocytes/100 leukocyt esOrdered By: Dr. Goff on 03-28-2022 Monocytes/100 WBC (Bld) 7.8 % 0-10 [facility] Blood platelet mean volumeOr dered By: Dr. Goff on 03-28-2022 Platelet mean volume (Bld) [Entitic vol] 11.6 fL 6.2-12.0 [facility] Determination of erythrocyte mean corpuscular volume (MCV)Ordered By: Dr. Goff on 03-28-2022 MCV (RBC) [Entitic vol] 94.7 fL 81-99 [facility] Hematocrit Auto (Bld) [Volum e fraction]Ordered By: Dr. Goff on 03-28-2022 Hematocrit (Bld) [Volume fraction] 46.4 % 37-47 [facility] Laboratory - Chemistry and C hemistry - challengeOrdered By: Dr. Goff on 03-28-2022 ALP [Catalytic activity/Vol] 62 U/L 45-117 [facility] ALT [Catalytic activity/Vol] 22 U/L 13-56 [facility] CO2 [Moles/Vol] 25.0 mmol/L 21.0-32.0 [facility] Globulin (S) [Mass/Vol] 3.5 g/dL 2.2-4.2 [facility] Urea nitrogen/Creatinine [Mass ratio] 18.6 mg/mg 10-20 [facility] Laboratory - Hematology and Cell countsOrdered By: Dr. Goff on 03-28-2022 Erythrocyte distribution width (RBC) [Entitic vol] 46.0 fL 35.1-43.9 [facility] Erythrocyte distribution width (RBC) [Ratio] 13.2 % 11.6-14.6 [facility] Immature granulocytes/100 WBC (Bld) 0.400 % 0.0-0.9 [facility] Comment on above: IG% - Immature Granu locytes (promyelocytes, myelocytes and metamyelocytes) > 1% indicates that a LEFT SHIFT is Present. MCH (RBC) [Entitic mass] 31.8 pg 27.0-32.0 [facility] Nucleated RBC/100 WBC (Bld) [Ratio] 0 % 0-[address] [facility] ([facility]BC) [Mass/Vol]Or dered By: Dr. Goff on 03-28-2022 MCHC (RBC) [Mass/Vol] 33.6 g/dL 32-36 [facility] No Panel InformationOrdered By: Dr. Goff on 03-28-2022 Estimated GFR (MDRD) Amer 71 mL/min >60 [facility] Comment on above: GFR Calc Estimated GFR (MDRD) Non-Af Amer 59 mL/min >60 [facility] Comment on above: Non- GFR Calc Platelets bldOrdered By: Dr. Goff on 03-28-2022 Platelets (Bld) [#/Vol] 191 10*3/uL 150-450 [facility] Serum or plasma albumin guicho urement (mass/volume)Ordered By: Dr. Goff on 03-28-2022 Albumin [Mass/Vol] 3.5 g/dL 3.2-5.0 [facility] Serum or plasma albumin/glob ulin mass ratioOrdered By: Dr. Goff on 03-28-2022 Albumin/Globulin [Mass ratio] 1.0 {ratio} 0.9-2.4 [facility] Serum or plasma calcium guicho urement (mass/volume)Ordered By: Dr. Goff on 03-28-2022 Calcium [Mass/Vol] 9.2 mg/dL 8.5-10.1 [facility] Serum or plasma creatinine m easurement (mass/volume)Ordered By: Dr. Goff on 03-28-2022 Creatinine [Mass/Vol] 0.97 mg/dL 0.55-1.02 [facility] Comment on above: The validity of the calculated GFR & GFRAA in patients over 70 years has not been determined. Clinical correlation is essential. Serum or plasma urea nitroge n measurement (mass/volume)Ordered By: Dr. Goff on 03-28-2022 Urea nitrogen [Mass/Vol] 18 mg/dL 7-18 [facility] Thin prep Papanicolaou smear with manual screeningOrdered By: Dr. Goff on 03-28-2022 Thin prep Papanicolaou smear with manual screening 21 U/L 15-37 [facility] Thin prep Papanicolaou smear with manual screening 6 5-15 [facility] Basophil percentageon 2021 Bilirubin [Mass/Vol] 0.70 mg/dL 0.20-1.00 [facility] Work Phone: Comment on above: For patients on eltr ombopag therapy, use of [place] TBIL is not recommended. Chloride [Moles/Vol] 104 mmol/L 98-107 [facility] Work Phone: Glucose [Mass/Vol] 104 mg/dL 74-106 [facility] Work Phone: Comment on above: Fasting Glucose resu lt from 100 to 125 mg/dL suggests IMPAIRED HOMEOSTASIS per A.D.A. criteria. Potassium [Moles/Vol] 4.5 mmol/L 3.5-5.1 [facility] Work Phone: Protein [Mass/Vol] 7.1 g/dL 6.4-8.2 [facility] Work Phone: Sodium [Moles/Vol] 139 mmol/L 136-145 [facility] Work Phone: [phone] Laboratory - Chemistry and C hemistry - challengeon 01-21-2022 ALP [Catalytic activity/Vol] 75 U/L 45-117 [facility] Work Phone: ALT [Catalytic activity/Vol] 29 U/L 13-56 [facility] Work Phone: CO2 [Moles/Vol] 29.0 mmol/L 21.0-32.0 [facility] Work Phone: Globulin (S) [Mass/Vol] 3.3 g/dL 2.2-4.2 [facility] Work Phone: Urea nitrogen/Creatinine [Mass ratio] 21.3 mg/mg 10-20 [facility] Work Phone: No Panel Informationon 01-21 Estimated GFR (MDRD) Amer 83 mL/min >60 [facility] Work Phone: Comment on above: GFR Calc Estimated GFR (MDRD) Non-Af Amer 69 mL/min >60 [facility] Work Phone: Comment on above: Non- GFR Calc Serum or plasma albumin guicho urement (mass/volume)on 01-21-2022 Albumin [Mass/Vol] 3.8 g/dL 3.2-5.0 [facility] Work Phone: [phone] Serum or plasma albumin/glob ulin mass ratioon 01-21-2022 Albumin/Globulin [Mass ratio] 1.2 {ratio} 0.9-2.4 [facility] Work Phone: [phone] Serum or plasma calcium guicho urement (mass/volume)on 01-21-2022 Calcium [Mass/Vol] 9.5 mg/dL 8.5-10.1 [facility] Work Phone: [phone] Serum or plasma creatinine m easurement (mass/volume)on 01-21-2022 Creatinine [Mass/Vol] 0.84 mg/dL 0.55-1.02 [facility] Work Phone: Comment on above: The validity of the calculated GFR & GFRAA in patients over 70 years has not been determined. Clinical correlation is essential. Serum or plasma urea nitroge n measurement (mass/volume)on 01-21-2022 Urea nitrogen [Mass/Vol] 18 mg/dL 7-18 [facility] Work Phone: [phone] Thin prep Papanicolaou smear with manual screeningon 01-21-2022 Thin prep Papanicolaou smear with manual screening 24 U/L 15-37 [facility] Work Phone: [phone] Thin prep Papanicolaou smear with manual screening 6 5-15 [facility] Work Phone: [phone] Absolute lymphocyte counton 12-31-2021 Lymphocytes Auto (Unsp spec) [#/Vol] 2.43 10*3/uL 0.83-4.51 [facility] Work Phone: [phone] Basophil percentageon 2021 Basophils/100 WBC (Bld) 0.7 % 0-1 [facility] Work Phone: Bilirubin [Mass/Vol] 0.60 mg/dL 0.20-1.00 [facility] Work Phone: Comment on above: For patients on eltr ombopag therapy, use of [place] TBIL is not recommended. Chloride [Moles/Vol] 109 mmol/L 98-107 [facility] Work Phone: Eosinophils/100 WBC (Bld) 1.7 % 0-5 [facility] Work Phone: Glucose [Mass/Vol] 142 mg/dL 74-106 [facility] Work Phone: Comment on above: Fasting Glucose resu lt greater than or equal to 126 mg/dL suggests DIABETES MELLITUS per A.D.A. criteria. Neutrophils (Bld) [#/Vol] 4.4 10*3/uL 2.0-7.7 [facility] Work Phone: Neutrophils/100 WBC (Bld) 58.0 % 47-70 [facility] Work Phone: Potassium [Moles/Vol] 4.3 mmol/L 3.5-5.1 [facility] Work Phone: Protein [Mass/Vol] 6.8 g/dL 6.4-8.2 [facility] Work Phone: [phone] Sodium [Moles/Vol] 141 mmol/L 136-145 [facility] Work Phone: WBC (Bld) [#/Vol] 7.6 10*3/uL 4.4-11.0 [facility] Work Phone: Blood erythrocytes count (nu mber/volume)on 12-31-2021 RBC (Bld) [#/Vol] 4.62 10*6/uL 4.2-5.4 [facility] Work Phone: Blood hemoglobin measurement (mass/volume)on 12-31-2021 Hemoglobin (Bld) [Mass/Vol] 14.8 g/dL 12.0-15.0 [facility] Work Phone: Blood lymphocytes/100 leukoc yteson 12-31-2021 Lymphocytes/100 WBC (Bld) 31.8 % 19-41 [facility] Work Phone: Blood monocytes/100 leukocyt eson 12-31-2021 Monocytes/100 WBC (Bld) 7.3 % 0-10 [facility] Work Phone: Blood platelet mean volumeon 12-31-2021 Platelet mean volume (Bld) [Entitic vol] 11.2 fL 6.2-12.0 [facility] Work Phone: Determination of erythrocyte mean corpuscular volume (MCV)on 12-31-2021 MCV (RBC) [Entitic vol] 93.5 fL 81-99 [facility] Work Phone: Hematocrit Auto (Bld) [Volum e fraction]on 12-31-2021 Hematocrit (Bld) [Volume fraction] 43.2 % 37-47 [facility] Work Phone: Laboratory - Chemistry and C hemistry - challengeon 12-31-2021 ALP [Catalytic activity/Vol] 64 U/L 45-117 [facility] Work Phone: ALT [Catalytic activity/Vol] 23 U/L 13-56 [facility] Work Phone: CO2 [Moles/Vol] 26.0 mmol/L 21.0-32.0 [facility] Work Phone: Globulin (S) [Mass/Vol] 3.5 g/dL 2.2-4.2 [facility] Work Phone: Urea nitrogen/Creatinine [Mass ratio] 17.1 mg/mg 10-20 [facility] Work Phone: Laboratory - Hematology and Cell countson 12-31-2021 Erythrocyte distribution width (RBC) [Entitic vol] 46.5 fL 35.1-43.9 [facility] Work Phone: Erythrocyte distribution width (RBC) [Ratio] 13.6 % 11.6-14.6 [facility] Work Phone: [phone] Immature granulocytes/100 WBC (Bld) 0.500 % 0.0-0.9 [facility] Work Phone: [phone] Comment on above: IG% - Immature Granu locytes (promyelocytes, myelocytes and metamyelocytes) > 1% indicates that a LEFT SHIFT is Present. MCH (RBC) [Entitic mass] 32.0 pg 27.0-32.0 [facility] Work Phone: Nucleated RBC/100 WBC (Bld) [Ratio] 0 % 0-5 [facility] Work Phone: [phone] MCHC Auto (RBC) [Mass/Vol]on 12-31-2021 MCHC (RBC) [Mass/Vol] 34.3 g/dL 32-36 [facility] Work Phone: No Panel Informationon 12-31 Estimated GFR (MDRD) Amer 61 mL/min >60 [facility] Work Phone: Comment on above: GFR Calc Estimated GFR (MDRD) Non-Af Amer 50 mL/min >60 [facility] Work Phone: [phone] Comment on above: Non- GFR Calc Platelets bldon 12-31-2021 Platelets (Bld) [#/Vol] 218 10*3/uL 150-450 [facility] Work Phone: [phone] Serum or plasma albumin guicho urement (mass/volume)on 12-31-2021 Albumin [Mass/Vol] 3.3 g/dL 3.2-5.0 [facility] Work Phone: [phone] Serum or plasma albumin/glob ulin mass ratioon 12-31-2021 Albumin/Globulin [Mass ratio] 0.9 {ratio} 0.9-2.4 [facility] Work Phone: [phone] Serum or plasma calcium guicho urement (mass/volume)on 12-31-2021 Calcium [Mass/Vol] 9.1 mg/dL 8.5-10.1 [facility] Work Phone: Serum or plasma creatinine m easurement (mass/volume)on 12-31-2021 Creatinine [Mass/Vol] 1.11 mg/dL 0.55-1.02 [facility] Work Phone: Comment on above: The validity of the calculated GFR & GFRAA in patients over 70 years has not been determined. Clinical correlation is essential. Serum or plasma urea nitroge n measurement (mass/volume)on 12-31-2021 Urea nitrogen [Mass/Vol] 19 mg/dL 7-18 [facility] Work Phone: Thin prep Papanicolaou smear with manual screeningon 12-31-2021 Thin prep Papanicolaou smear with manual screening 18 U/L 15-37 [facility] Work Phone: Thin prep Papanicolaou smear with manual screening 6 5-15 [facility] Work Phone: LABORATORYOrdered By: Claudine Conley on 11-02-2021 Albumin BCP dye [Mass/Vol] 2.3 G/dL Invalid Interpretation Code 3.4 - 4.8 G/dL AO ADM SS Albumin/Globulin [Mass ratio] 0.9 {ratio} Invalid Interpretation Code 1.1 - 2.5 ratio AO ADM SS ALP [Catalytic activity/Vol] 63 U/L Invalid Interpretation Code 40 - 135 U/L AO ADM SS ALT With P-5'-P [Catalytic activity/Vol] 15 U/L Invalid Interpretation Code 14 - 59 U/L AO ADM SS AST With P-5'-P [Catalytic activity/Vol] 14 U/L Invalid Interpretation Code 10 - 40 U/L AO ADM SS Basophil, Absolute 0.0 103/mcL Invalid Interpretation Code 0.0 - 0.2 10^3/mcL AO Workflow SS Basophils/100 WBC (Bld) 0.4 % Invalid Interpretation Code 0.0 - 2.5 % AO Workflow SS Bilirubin [Mass/Vol] 0.7 mg/dL Invalid Interpretation Code 0.2 - 1.0 mg/dL AO ADM SS Calcium [Mass/Vol] 7.4 mg/dL Invalid Interpretation Code 8.4 - 10.2 mg/dL AO ADM SS Chloride [Moles/Vol] 105 mmol/L Invalid Interpretation Code 98 - 107 mmol/L AO ADM SS CO2 [Moles/Vol] 26 mmol/L Invalid Interpretation Code 23 - 31 mmol/L AO ADM SS Creatinine [Mass/Vol] 0.91 mg/dL Invalid Interpretation Code 0.55 - 1.02 mg/dL AO ADM SS Electrolyte Balance 5.0 mEq/L Invalid Interpretation Code 4.0 - 15.0 mEq/L AO ADM SS Eosinophil, Absolute 0.1 103/mcL Invalid Interpretation Code 0.0 - 0.4 10^3/mcL AO Workflow SS Eosinophils/100 WBC (Bld) 1.4 % Invalid Interpretation Code 0.0 - 7.0 % AO Workflow SS Erythrocyte distribution width (RBC) [Ratio] 14.6 % Invalid Interpretation Code 11.5 - 14.5 % AO Workflow SS Globulin 2.7 G/dL Invalid Interpretation Code AO ADM SS Glucose [Mass/Vol] 100 mg/dL Invalid Interpretation Code 83 - 110 mg/dL AO ADM SS Hematocrit (Bld) [Volume fraction] 36.3 % Invalid Interpretation Code 37.0 - 47.0 % AO Workflow SS Hemoglobin (Bld) [Mass/Vol] 12.8 G/dL Invalid Interpretation Code 12.0 - 16.0 G/dL AO Workflow SS Lymphocyte, Absolute 2.3 103/mcL Invalid Interpretation Code 0.8 - 3.9 10^3/mcL AO Workflow SS Lymphocytes/100 WBC (Bld) 25.9 % Invalid Interpretation Code 10.0 - 50.0 % AO Workflow SS MCH (RBC) [Entitic mass] 31.6 pg Invalid Interpretation Code 27.0 - 31.2 pg AO Workflow SS MCHC 35.3 G/dL Invalid Interpretation Code 33.0 - 37.0 G/dL AO Workflow SS MCV (RBC) [Entitic vol] 89.3 fL Invalid Interpretation Code 80.0 - 94.0 fL AO Workflow SS Monocyte, Absolute 1.0 103/mcL Invalid Interpretation Code 0.2 - 1.0 10^3/mcL AO Workflow SS Monocytes/100 WBC (Bld) 11.7 % Invalid Interpretation Code 1.7 - 13.0 % AO Workflow SS Neutrophil, Absolute 5.3 103/mcL Invalid Interpretation Code 2.9 - 6.2 10^3/mcL AO Workflow SS Neutrophils/100 WBC (Bld) 60.6 % Invalid Interpretation Code 37.0 - 80.0 % AO Workflow SS Platelet mean volume (Bld) [Entitic vol] 8.7 fL Invalid Interpretation Code 7.4 - 10.4 fL AO Workflow SS Platelets (Bld) [#/Vol] 171 103/mcL Invalid Interpretation Code 130 - 400 10^3/mcL AO Workflow SS Potassium [Moles/Vol] 4.2 mmol/L Invalid Interpretation Code 3.5 - 5.1 mmol/L AO ADM SS Protein [Mass/Vol] 5.0 G/dL Invalid Interpretation Code 6.4 - 8.2 G/dL AO ADM SS RBC (Bld) [#/Vol] 4.07 106/mcL Invalid Interpretation Code 4.20 - 5.40 10^6/mcL AO Workflow SS Sodium [Moles/Vol] 136 mmol/L Invalid Interpretation Code 136 - 145 mmol/L AO ADM SS Urea nitrogen [Mass/Vol] 20 mg/dL Invalid Interpretation Code 7 - 18 mg/dL AO ADM SS Urea nitrogen/Creatinine [Mass ratio] 22 ratio Invalid Interpretation Code 7 - 27 ratio AO ADM SS WBC (Bld) [#/Vol] 8.7 103/mcL Invalid Interpretation Code 4.6 - 10.8 10^3/mcL AO Workflow SS LABORATORYOrdered By: SYSTEM SYSTEM on 11-02-2021 GFR 72 ml/min/1.73sqm Invalid Interpretation Code AO Chemistry S GFR Non- 60 ml/min/1.73sqm Invalid Interpretation Code AO Chemistry S No Panel Informationon 11-02 Microscopic examination of blood, culture Culture has been received in lab and is no growth to date. Routine cultures are held for 5 days. [facility] Work Phone: Legionella Urine Ag Presumptive negative for L. pneumophila serogroup 1 antigen in urine, suggesting no recent or current infection. Legionnaire's disease cannot be ruled out since other serogroups and species may also cause disease. [facility] Work Phone: LABORATORYOrdered By: Kem Rendon on 11-01-2021 Lactate [Moles/Vol] 0.9 mmol/L Invalid Interpretation Code 0.4 - 2.0 mmol/L AO ADM SS ADMITTED TO INTENSIVE CARE UNIT FOR CONDITION OF INTEREST:FIND:PT:^PAT IENT:ORD: No (11/01/21 6:18 PM) Invalid Interpretation Code AO Auto Urine SS Basophil, Absolute 0.1 103/mcL Invalid Interpretation Code 0.0 - 0.2 10^3/mcL AO Workflow SS Basophils/100 WBC (Bld) 0.8 % Invalid Interpretation Code 0.0 - 2.5 % AO Workflow SS EMPLOYED IN A HEALTHCARE SETTING:FIND:PT:^ROME ENT:ORD: No (11/01/21 6:18 PM) Invalid Interpretation Code AO Auto Urine SS Eosinophil, Absolute 0.1 103/mcL Invalid Interpretation Code 0.0 - 0.4 10^3/mcL AO Workflow SS Eosinophils/100 WBC (Bld) 0.8 % Invalid Interpretation Code 0.0 - 7.0 % AO Workflow SS Erythrocyte distribution width (RBC) [Ratio] 14.1 % Invalid Interpretation Code 11.5 - 14.5 % AO Workflow SS FIRST TEST FOR CONDITION OF INTEREST:FIND:PT:^PAT IENT:ORD: Unknown (11/01/21 6:18 PM) Invalid Interpretation Code AO Auto Urine SS HAS SYMPTOMS RELATED TO CONDITION OF INTEREST:FIND:PT:^PAT IENT:ORD: Yes (11/01/21 6:18 PM) Invalid Interpretation Code AO Auto Urine SS Hematocrit (Bld) [Volume fraction] 41.3 % Invalid Interpretation Code 37.0 - 47.0 % AO Workflow SS Hemoglobin (Bld) [Mass/Vol] 14.4 G/dL Invalid Interpretation Code 12.0 - 16.0 G/dL AO Workflow SS Illness or injury onset date and time [id number] Invalid Interpretation Code AO Auto Urine SS Lymphocyte, Absolute 2.3 103/mcL Invalid Interpretation Code 0.8 - 3.9 10^3/mcL AO Workflow SS Lymphocytes/100 WBC (Bld) 18.9 % Invalid Interpretation Code 10.0 - 50.0 % AO Workflow SS MCH (RBC) [Entitic mass] 31.4 pg Invalid Interpretation Code 27.0 - 31.2 pg AO Workflow SS MCHC 35.0 G/dL Invalid Interpretation Code 33.0 - 37.0 G/dL AO Workflow SS MCV (RBC) [Entitic vol] 89.6 fL Invalid Interpretation Code 80.0 - 94.0 fL AO Workflow SS Monocyte distribution width Auto (Bld) [Entitic vol] 24.13 Invalid Interpretation Code 0.00 - 20.00 AO Workflow SS Comment on above: Result Comment: For adults in ED, W>20.0 may be associated with a higher risk of sepsis during the first 12hrs of hospital admission Monocyte, Absolute 1.5 103/mcL Invalid Interpretation Code 0.2 - 1.0 10^3/mcL AO Workflow SS Monocytes/100 WBC (Bld) 12.2 % Invalid Interpretation Code 1.7 - 13.0 % AO Workflow SS Neutrophil, Absolute 8.0 103/mcL Invalid Interpretation Code 2.9 - 6.2 10^3/mcL AO Workflow SS Neutrophils/100 WBC (Bld) 67.3 % Invalid Interpretation Code 37.0 - 80.0 % AO Workflow SS Patient was hospitalized because of this condition No (11/01/21 6:18 PM) Invalid Interpretation Code AO Auto Urine SS Platelet mean volume (Bld) [Entitic vol] 8.7 fL Invalid Interpretation Code 7.4 - 10.4 fL AO Workflow SS Platelets (Bld) [#/Vol] 185 103/mcL Invalid Interpretation Code 130 - 400 10^3/mcL AO Workflow SS status Not (11/01/21 6:18 PM) Invalid Interpretation Code AO Auto Urine SS RBC (Bld) [#/Vol] 4.61 106/mcL Invalid Interpretation Code 4.20 - 5.40 10^6/mcL AO Workflow SS RESIDES IN A CONGREGATE CARE SETTING:FIND:PT:^ROME ENT:ORD: Unknown (11/01/21 6:18 PM) Invalid Interpretation Code AO Auto Urine SS SARS-CoV-2 (COVID-19) RNA KIRBY+probe Ql (Resp) Negative results do not preclude SARS-CoV-2 infection and should not be used as the sole basis for patient management decisions. Negative results must be combined with clinical observations, patient history, and epidemiological information.There is a risk of false negative values resulting from improperly collected, transported, or handled specimens.There is a risk of false negative values due to the presence of sequence variants in the pathogen targets of the assay, procedural errors, amplification inhibitors in specimens, or inadequate numbers of organisms for amplification.JAIME SARS-CoV-2 Assay is a Real-Time reverse-transcriptase polymerase chain reaction (RT-PCR) based qualitative in vitro diagnostic test intended for the qualitative detection of nucleic acid from the SARS-CoV-2 in nasopharyngeal swab specimens collected from individuals suspected of COVID-19 by their healthcare provider. Testing is limited to laboratories certified under the Clinical Laboratory Improvement Amendments of 1988 (CLIA), 42 U.S.C. 263a, to perform moderate and high complexity tests. Invalid Interpretation Code AO Auto Urine SS WBC (Bld) [#/Vol] 11.9 103/mcL Invalid Interpretation Code 4.6 - 10.8 10^3/mcL AO Workflow SS LABORATORYOrdered By: Yadira Rodriguez on 11-01-2021 Calcium [Mass/Vol] 8.7 mg/dL Invalid Interpretation Code 8.4 - 10.2 mg/dL AO ADM SS Chloride [Moles/Vol] 101 mmol/L Invalid Interpretation Code 98 - 107 mmol/L AO ADM SS CO2 [Moles/Vol] 28 mmol/L Invalid Interpretation Code 23 - 31 mmol/L AO ADM SS Creatinine [Mass/Vol] 0.98 mg/dL Invalid Interpretation Code 0.55 - 1.02 mg/dL AO ADM SS Electrolyte Balance 10.0 mEq/L Invalid Interpretation Code 4.0 - 15.0 mEq/L AO ADM SS Glucose [Mass/Vol] 119 mg/dL Invalid Interpretation Code 83 - 110 mg/dL AO ADM SS Potassium [Moles/Vol] 4.2 mmol/L Invalid Interpretation Code 3.5 - 5.1 mmol/L AO ADM SS Sodium [Moles/Vol] 139 mmol/L Invalid Interpretation Code 136 - 145 mmol/L AO ADM SS Urea nitrogen [Mass/Vol] 27 mg/dL Invalid Interpretation Code 7 - 18 mg/dL AO ADM SS Urea nitrogen/Creatinine [Mass ratio] 28 ratio Invalid Interpretation Code 7 - 27 ratio AO ADM SS LABORATORYOrdered By: SYSTEM SYSTEM on 11-01-2021 GFR 66 ml/min/1.73sqm Invalid Interpretation Code AO Chemistry S GFR Non- 55 ml/min/1.73sqm Invalid Interpretation Code AO Chemistry S LABORATORYOrdered By: Shanti Vincent on 11-01-2021 Appearance (U) Slightly Cloudy *ABN* (11/01/21 6:03 PM) Invalid Interpretation Code Clear AO Auto Urine SS Bacteria LM.HPF (Urine sed) [#/Area] 2 /[HPF] Invalid Interpretation Code AO Auto Urine SS Bilirubin Ql (U) Negative (11/01/21 6:03 PM) Invalid Interpretation Code Negative AO Auto Urine SS Color (U) Yellow (11/01/21 6:03 PM) Invalid Interpretation Code AO Auto Urine SS Glucose Test strip (U) [Mass/Vol] Negative Invalid Interpretation Code Negativemg /dL AO Auto Urine SS Hemoglobin Auto test strip (U) [Mass/Vol] Moderate *ABN* (11/01/21 6:03 PM) Invalid Interpretation Code Negative AO Auto Urine SS Ketones Ql (U) Trace mg/dL Invalid Interpretation Code Negativemg /dL AO Auto Urine SS UA Leuk Est Small *ABN* (11/01/21 6:03 PM) Invalid Interpretation Code Negative AO Auto Urine SS UA Nitrite Positive *ABN* (11/01/21 6:03 PM) Invalid Interpretation Code Negative AO Auto Urine SS UA pH 5.5 (11/01/21 6:03 PM) Invalid Interpretation Code 5.0 - 8.0 AO Auto Urine SS UA Protein 30 mg/dL Invalid Interpretation Code Negativemg /dL AO Auto Urine SS UA RBC 0-5 /HPF Invalid Interpretation Code None Seen/HPF AO Auto Urine SS UA Spec Grav 1.020 (11/01/21 6:03 PM) Invalid Interpretation Code 1.015-1.02 5 AO Auto Urine SS UA Specimen Type Not Given (11/01/21 6:03 PM) Invalid Interpretation Code AO Auto Urine SS UA Squam Epithelial 5-10 /HPF Invalid Interpretation Code None Seen/HPF AO Auto Urine SS UA Urobilinogen 1.0 E.U./dL Invalid Interpretation Code 0.2-1.0E.U ./dL AO Auto Urine SS WBC LM.HPF (Urine sed) [#/Area] 15-25 /HPF Invalid Interpretation Code None Seen/HPF AO Auto Urine SS No Panel Informationon 11-01 Streptococcus Pneumoniae Urine Antig Presumptive negative for pneumococcal pneumonia, suggesting no current or recent pneumococcal infection. Infection due to Strep pneumoniae cannot be ruled out since the antigen present in the sample may be below the detection limit of the test. [facility] Work Phone: Comment on above: This test has not be en evaluated on patients taking antibiotics for greater than 24 hours or on patients who have recently completed an antibiotic regimen. The accuracy of this test has not been proven in young children. Absolute lymphocyte counton 10-03-2021 Lymphocytes Auto (Unsp spec) [#/Vol] 2.16 10*3/uL 0.83-4.51 [facility] Work Phone: Basophil percentageon 2021 Basophils/100 WBC (Bld) 1.0 % 0-1 [facility] Work Phone: Bilirubin [Mass/Vol] 0.80 mg/dL 0.20-1.00 [facility] Work Phone: Comment on above: For patients on eltr ombopag therapy, use of Dim[place] TBIL is not recommended. Chloride [Moles/Vol] 105 mmol/L 98-107 [facility] Work Phone: Eosinophils/100 WBC (Bld) 3.0 % 0-5 [facility] Work Phone: Glucose [Mass/Vol] 123 mg/dL 74-106 [facility] Work Phone: Comment on above: Fasting Glucose resu lt from 100 to 125 mg/dL suggests IMPAIRED HOMEOSTASIS per A.D.A. criteria. Neutrophils (Bld) [#/Vol] 4.3 10*3/uL 2.0-7.7 [facility] Work Phone: Neutrophils/100 WBC (Bld) 56.7 % 47-70 [facility] Work Phone: Potassium [Moles/Vol] 4.4 mmol/L 3.5-5.1 [facility] Work Phone: Protein [Mass/Vol] 7.6 g/dL 6.4-8.2 [facility] Work Phone: Sodium [Moles/Vol] 138 mmol/L 136-145 [facility] Work Phone: WBC (Bld) [#/Vol] 7.6 10*3/uL 4.4-11.0 [facility] Work Phone: Blood erythrocytes count (nu mber/volume)on 10-03-2021 RBC (Bld) [#/Vol] 5.13 10*6/uL 4.2-5.4 [facility] Work Phone: Blood hemoglobin measurement (mass/volume)on 10-03-2021 Hemoglobin (Bld) [Mass/Vol] 16.4 g/dL 12.0-15.0 [facility] Work Phone: [phone] Blood lymphocytes/100 leukoc yteson 10-03-2021 Lymphocytes/100 WBC (Bld) 28.3 % 19-41 [facility] Work Phone: [phone] Blood monocytes/100 leukocyt eson 10-03-2021 Monocytes/100 WBC (Bld) 9.2 % 0-10 [facility] Work Phone: [phone] Blood platelet mean volumeon 10-03-2021 Platelet mean volume (Bld) [Entitic vol] 10.9 fL 6.2-12.0 [facility] Work Phone: [phone] Determination of erythrocyte mean corpuscular volume (MCV)on 10-03-2021 MCV (RBC) [Entitic vol] 91.6 fL 81-99 [facility] Work Phone: [phone] Hematocrit Auto (Bld) [Volum e fraction]on 10-03-2021 Hematocrit (Bld) [Volume fraction] 47.0 % 37-47 [facility] Work Phone: [phone] Laboratory - Chemistry and C hemistry - challengeon 10-03-2021 ALP [Catalytic activity/Vol] 90 U/L 45-117 [facility] Work Phone: [phone] ALT [Catalytic activity/Vol] 25 U/L 13-56 [facility] Work Phone: [phone] CO2 [Moles/Vol] 28.0 mmol/L 21.0-32.0 [facility] Work Phone: [phone] Globulin (S) [Mass/Vol] 4.2 g/dL 2.2-4.2 [facility] Work Phone: [phone] Urea nitrogen/Creatinine [Mass ratio] 27.5 mg/mg 10-20 [facility] Work Phone: [phone] Laboratory - Hematology and Cell countson 10-03-2021 Erythrocyte distribution width (RBC) [Entitic vol] 46.6 fL 35.1-43.9 [facility] Work Phone: [phone] Erythrocyte distribution width (RBC) [Ratio] 13.7 % 11.6-14.6 [facility] Work Phone: [phone] Immature granulocytes/100 WBC (Bld) 1.800 % 0.0-0.9 [facility] Work Phone: [phone] Comment on above: IG% - Immature Granu locytes (promyelocytes, myelocytes and metamyelocytes) > 1% indicates that a LEFT SHIFT is Present. MCH (RBC) [Entitic mass] 32.0 pg 27.0-32.0 [facility] Work Phone: [phone] Nucleated RBC/100 WBC (Bld) [Ratio] 0 % 0-5 [facility] Work Phone: [phone] MCHC Auto (RBC) [Mass/Vol]on 10-03-2021 MCHC (RBC) [Mass/Vol] 34.9 g/dL 32-36 [facility] Work Phone: [phone] Panel Informationon 10-03 Estimated GFR (MDRD) Amer 77 mL/min >60 [facility] Work Phone: [phone] Comment on above: GFR Calc Estimated GFR (MDRD) Non-Af Amer 63 mL/min >60 [facility] Work Phone: [phone] Comment on above: Non- GFR Calc Platelets bldon 10-03-2021 Platelets (Bld) [#/Vol] 243 10*3/uL 150-450 [facility] Work Phone: [phone] Serum or plasma albumin guicho urement (mass/volume)on 10-03-2021 Albumin [Mass/Vol] 3.4 g/dL 3.2-5.0 [facility] Work Phone: [phone] Serum or plasma albumin/glob ulin mass ratioon 10-03-2021 Albumin/Globulin [Mass ratio] 0.8 {ratio} 0.9-2.4 [facility] Work Phone: [phone] Serum or plasma calcium guicho urement (mass/volume)on 10-03-2021 Calcium [Mass/Vol] 9.3 mg/dL 8.5-10.1 [facility] Work Phone: Serum or plasma creatinine m easurement (mass/volume)on 10-03-2021 Creatinine [Mass/Vol] 0.91 mg/dL 0.55-1.02 [facility] Work Phone: Comment on above: The validity of the calculated GFR & GFRAA in patients over 70 years has not been determined. Clinical correlation is essential. Serum or plasma urea nitroge n measurement (mass/volume)on 10-03-2021 Urea nitrogen [Mass/Vol] 25 mg/dL 7-18 [facility] Work Phone: Thin prep Papanicolaou smear with manual screeningon 10-03-2021 Thin prep Papanicolaou smear with manual screening 15 U/L 15-37 [facility] Work Phone: Thin prep Papanicolaou smear with manual screening 5 5-15 [facility] Work Phone: Absolute lymphocyte counton 07-03-2021 Lymphocytes Auto (Unsp spec) [#/Vol] 2.27 10*3/uL 0.83-4.51 [facility] Work Phone: Basophil percentageon 2021 Basophils/100 WBC (Bld) 0.9 % 0-1 [facility] Work Phone: Bilirubin [Mass/Vol] 0.70 mg/dL 0.20-1.00 [facility] Work Phone: Comment on above: For patients on eltr ombopag therapy, use of [place] TBIL is not recommended. Chloride [Moles/Vol] 107 mmol/L 98-107 [facility] Work Phone: Eosinophils/100 WBC (Bld) 6.9 % 0-5 [facility] Work Phone: Glucose [Mass/Vol] 107 mg/dL 74-106 [facility] Work Phone: Comment on above: Fasting Glucose resu lt from 100 to 125 mg/dL suggests IMPAIRED HOMEOSTASIS per A.D.A. criteria. Neutrophils (Bld) [#/Vol] 2.3 10*3/uL 2.0-7.7 [facility] Work Phone: Neutrophils/100 WBC (Bld) 41.0 % 47-70 [facility] Work Phone: Potassium [Moles/Vol] 4.3 mmol/L 3.5-5.1 [facility] Work Phone: Protein [Mass/Vol] 7.6 g/dL 6.4-8.2 [facility] Work Phone: Sodium [Moles/Vol] 138 mmol/L 136-145 [facility] Work Phone: WBC (Bld) [#/Vol] 5.5 10*3/uL 4.4-11.0 [facility] Work Phone: Blood erythrocytes count (nu mber/volume)on 07-03-2021 RBC (Bld) [#/Vol] 5.09 10*6/uL 4.2-5.4 [facility] Work Phone: Blood hemoglobin measurement (mass/volume)on 07-03-2021 Hemoglobin (Bld) [Mass/Vol] 15.4 g/dL 12.0-15.0 [facility] Work Phone: Blood lymphocytes/100 leukoc yteson 07-03-2021 Lymphocytes/100 WBC (Bld) 41.3 % 19-41 [facility] Work Phone: Blood monocytes/100 leukocyt eson 07-03-2021 Monocytes/100 WBC (Bld) 9.5 % 0-10 [facility] Work Phone: Blood platelet mean volumeon 07-03-2021 Platelet mean volume (Bld) [Entitic vol] 11.3 fL 6.2-12.0 [facility] Work Phone: Determination of erythrocyte mean corpuscular volume (MCV)on 07-03-2021 MCV (RBC) [Entitic vol] 91.9 fL 81-99 [facility] Work Phone: [phone] Hematocrit Auto (Bld) [Volum e fraction]on 07-03-2021 Hematocrit (Bld) [Volume fraction] 46.8 % 37-47 [facility] Work Phone: [phone] Laboratory - Chemistry and C hemistry - challengeon 07-03-2021 ALP [Catalytic activity/Vol] 75 U/L 45-117 [facility] Work Phone: [phone] ALT [Catalytic activity/Vol] 26 U/L 13-56 [facility] Work Phone: [phone] CO2 [Moles/Vol] 27.0 mmol/L 21.0-32.0 [facility] Work Phone: [phone] Globulin (S) [Mass/Vol] 3.8 g/dL 2.2-4.2 [facility] Work Phone: [phone] Urea nitrogen/Creatinine [Mass ratio] 18.7 mg/mg 10-20 [facility] Work Phone: [phone] Laboratory - Hematology and Cell countson 07-03-2021 Erythrocyte distribution width (RBC) [Entitic vol] 44.8 fL 35.1-43.9 [facility] Work Phone: [phone] Erythrocyte distribution width (RBC) [Ratio] 13.2 % 11.6-14.6 [facility] Work Phone: [phone] Immature granulocytes/100 WBC (Bld) 0.400 % 0.0-0.9 [facility] Work Phone: [phone] Comment on above: IG% - Immature Granu locytes (promyelocytes, myelocytes and metamyelocytes) > 1% indicates that a LEFT SHIFT is Present. MCH (RBC) [Entitic mass] 30.3 pg 27.0-32.0 [facility] Work Phone: [phone] Nucleated RBC/100 WBC (Bld) [Ratio] 0 % 0-5 [facility] Work Phone: [phone] MCHC Auto (RBC) [Mass/Vol]on 07-03-2021 MCHC (RBC) [Mass/Vol] 32.9 g/dL 32-36 [facility] Work Phone: No Panel Informationon 07-03 Estimated GFR (MDRD) Amer 82 mL/min >60 [facility] Work Phone: Comment on above: GFR Calc Estimated GFR (MDRD) Non-Af Amer 68 mL/min >60 [facility] Work Phone: Comment on above: Non- GFR Calc Platelets bldon 07-03-2021 Platelets (Bld) [#/Vol] 217 10*3/uL 150-450 [facility] Work Phone: [phone] Serum or plasma albumin guicho urement (mass/volume)on 07-03-2021 Albumin [Mass/Vol] 3.8 g/dL 3.2-5.0 [facility] Work Phone: [phone] Serum or plasma albumin/glob ulin mass ratioon 07-03-2021 Albumin/Globulin [Mass ratio] 1.0 {ratio} 0.9-2.4 [facility] Work Phone: [phone] Serum or plasma calcium guicho urement (mass/volume)on 07-03-2021 Calcium [Mass/Vol] 9.3 mg/dL 8.5-10.1 [facility] Work Phone: [phone] Serum or plasma creatinine m easurement (mass/volume)on 07-03-2021 Creatinine [Mass/Vol] 0.86 mg/dL 0.55-1.02 [facility] Work Phone: Comment on above: The validity of the calculated GFR & GFRAA in patients over 70 years has not been determined. Clinical correlation is essential. Serum or plasma urea nitroge n measurement (mass/volume)on 07-03-2021 Urea nitrogen [Mass/Vol] 16 mg/dL 7-18 [facility] Work Phone: [phone] Thin prep Papanicolaou smear with manual screeningon 07-03-2021 Thin prep Papanicolaou smear with manual screening 18 U/L 15-37 [facility] Work Phone: Thin prep Papanicolaou smear with manual screening 4 5-15 [facility] Work Phone: [phone] Absolute lymphocyte counton 04-03-2021 Lymphocytes Auto (Unsp spec) [#/Vol] 3.34 10*3/uL 0.83-4.51 [facility] Work Phone: Basophil percentageon 2021 Basophils/100 WBC (Bld) 0.5 % 0-1 [facility] Work Phone: Bilirubin [Mass/Vol] 0.90 mg/dL 0.20-1.00 [facility] Work Phone: Comment on above: For patients on eltr ombopag therapy, use of [place] TBIL is not recommended. Chloride [Moles/Vol] 105 mmol/L 98-107 [facility] Work Phone: Eosinophils/100 WBC (Bld) 3.0 % 0-5 [facility] Work Phone: Glucose [Mass/Vol] 121 mg/dL 74-106 [facility] Work Phone: Comment on above: Fasting Glucose resu lt from 100 to 125 mg/dL suggests IMPAIRED HOMEOSTASIS per A.D.A. criteria. Neutrophils (Bld) [#/Vol] 2.5 10*3/uL 2.0-7.7 [facility] Work Phone: Neutrophils/100 WBC (Bld) 37.1 % 47-70 [facility] Work Phone: Potassium [Moles/Vol] 4.0 mmol/L 3.5-5.1 [facility] Work Phone: Protein [Mass/Vol] 7.7 g/dL 6.4-8.2 [facility] Work Phone: Sodium [Moles/Vol] 138 mmol/L 136-145 [facility] Work Phone: WBC (Bld) [#/Vol] 6.6 10*3/uL 4.4-11.0 [facility] Work Phone: [phone] Blood erythrocytes count (nu mber/volume)on 04-03-2021 RBC (Bld) [#/Vol] 4.89 10*6/uL 4.2-5.4 [facility] Work Phone: [phone] Blood hemoglobin measurement (mass/volume)on 04-03-2021 Hemoglobin (Bld) [Mass/Vol] 15.2 g/dL 12.0-15.0 [facility] Work Phone: [phone] Blood lymphocytes/100 leukoc yteson 04-03-2021 Lymphocytes/100 WBC (Bld) 50.4 % 19-41 [facility] Work Phone: [phone] Blood monocytes/100 leukocyt eson 04-03-2021 Monocytes/100 WBC (Bld) 8.7 % 0-10 [facility] Work Phone: [phone] Blood platelet mean volumeon 04-03-2021 Platelet mean volume (Bld) [Entitic vol] 11.8 fL 6.2-12.0 [facility] Work Phone: [phone] Determination of erythrocyte mean corpuscular volume (MCV)on 04-03-2021 MCV (RBC) [Entitic vol] 92.6 fL 81-99 [facility] Work Phone: [phone] Hematocrit Auto (Bld) [Volum e fraction]on 04-03-2021 Hematocrit (Bld) [Volume fraction] 45.3 % 37-47 [facility] Work Phone: [phone] Laboratory - Chemistry and C hemistry - challengeon 04-03-2021 ALP [Catalytic activity/Vol] 71 U/L 45-117 [facility] Work Phone: [phone] ALT [Catalytic activity/Vol] 22 U/L 13-56 [facility] Work Phone: [phone] CO2 [Moles/Vol] 28.0 mmol/L 21.0-32.0 [facility] Work Phone: [phone] Globulin (S) [Mass/Vol] 3.9 g/dL 2.2-4.2 [facility] Work Phone: Urea nitrogen/Creatinine [Mass ratio] 18.8 mg/mg 10-20 [facility] Work Phone: [phone] Laboratory - Hematology and Cell countson 04-03-2021 Erythrocyte distribution width (RBC) [Entitic vol] 43.3 fL 35.1-43.9 [facility] Work Phone: [phone] Erythrocyte distribution width (RBC) [Ratio] 13.0 % 11.6-14.6 [facility] Work Phone: [phone] Immature granulocytes/100 WBC (Bld) 0.300 % 0.0-0.9 [facility] Work Phone: [phone] Comment on above: IG% - Immature Granu locytes (promyelocytes, myelocytes and metamyelocytes) > 1% indicates that a LEFT SHIFT is Present. MCH (RBC) [Entitic mass] 31.1 pg 27.0-32.0 [facility] Work Phone: [phone] Nucleated RBC/100 WBC (Bld) [Ratio] 0 % 0-5 [facility] Work Phone: [phone] MCHC Auto (RBC) [Mass/Vol]on 04-03-2021 MCHC (RBC) [Mass/Vol] 33.6 g/dL 32-36 [facility] Work Phone: [phone] Panel Informationon 04-03 Estimated GFR (MDRD) Amer 89 mL/min >60 [facility] Work Phone: [phone] Comment on above: GFR Calc Estimated GFR (MDRD) Non-Af Amer 74 mL/min >60 [facility] Work Phone: [phone] Comment on above: Non- GFR Calc Platelets bldon 04-03-2021 Platelets (Bld) [#/Vol] 241 10*3/uL 150-450 [facility] Work Phone: [phone] Serum or plasma albumin guicho urement (mass/volume)on 04-03-2021 Albumin [Mass/Vol] 3.8 g/dL 3.2-5.0 [facility] Work Phone: [phone] Serum or plasma albumin/glob ulin mass ratioon 04-03-2021 Albumin/Globulin [Mass ratio] 1.0 {ratio} 0.9-2.4 [facility] Work Phone: [phone] Serum or plasma calcium guicho urement (mass/volume)on 04-03-2021 Calcium [Mass/Vol] 9.5 mg/dL 8.5-10.1 [facility] Work Phone: [phone] Serum or plasma creatinine m easurement (mass/volume)on 04-03-2021 Creatinine [Mass/Vol] 0.80 mg/dL 0.55-1.02 [facility] Work Phone: [phone] Comment on above: The validity of the calculated GFR & GFRAA in patients over 70 years has not been determined. Clinical correlation is essential. Serum or plasma urea nitroge n measurement (mass/volume)on 04-03-2021 Urea nitrogen [Mass/Vol] 15 mg/dL 7-18 [facility] Work Phone: [phone] Thin prep Papanicolaou smear with manual screeningon 04-03-2021 Thin prep Papanicolaou smear with manual screening 19 U/L 15-37 [facility] Work Phone: [phone] Thin prep Papanicolaou smear with manual screening 5 5-15 [facility] Work Phone: [phone] Absolute lymphocyte counton 03-13-2021 Lymphocytes Auto (Unsp spec) [#/Vol] 1.51 10*3/uL 0.83-4.51 [facility] Work Phone: [phone] Basophil percentageon 2021 Basophils/100 WBC (Bld) 0.6 % 0-1 [facility] Work Phone: [phone] Bilirubin [Mass/Vol] 0.60 mg/dL 0.20-1.00 [facility] Work Phone: [phone] Comment on above: For patients on eltr ombopag therapy, use of Dim[place] TBIL is not recommended. Chloride [Moles/Vol] 110 mmol/L 98-107 [facility] Work Phone: [phone] Eosinophils/100 WBC (Bld) 0.3 % 0-5 [facility] Work Phone: Glucose [Mass/Vol] 83 mg/dL 74-106 [facility] Work Phone: Neutrophils (Bld) [#/Vol] 1.1 10*3/uL 2.0-7.7 [facility] Work Phone: Neutrophils/100 WBC (Bld) 32.8 % 47-70 [facility] Work Phone: Potassium [Moles/Vol] 3.7 mmol/L 3.5-5.1 [facility] Work Phone: Protein [Mass/Vol] 5.8 g/dL 6.4-8.2 [facility] Work Phone: Sodium [Moles/Vol] 138 mmol/L 136-145 [facility] Work Phone: WBC (Bld) [#/Vol] 3.4 10*3/uL 4.4-11.0 [facility] Work Phone: Blood erythrocytes count (nu mber/volume)on 03-13-2021 RBC (Bld) [#/Vol] 4.15 10*6/uL 4.2-5.4 [facility] Work Phone: Blood hemoglobin measurement (mass/volume)on 03-13-2021 Hemoglobin (Bld) [Mass/Vol] 12.9 g/dL 12.0-15.0 [facility] Work Phone: Blood lymphocytes/100 leukoc yteson 03-13-2021 Lymphocytes/100 WBC (Bld) 45.1 % 19-41 [facility] Work Phone: Blood monocytes/100 leukocyt eson 03-13-2021 Monocytes/100 WBC (Bld) 20.9 % 0-10 [facility] Work Phone: Blood platelet mean volumeon 03-13-2021 Platelet mean volume (Bld) [Entitic vol] 11.7 fL 6.2-12.0 [facility] Work Phone: [phone] Determination of erythrocyte mean corpuscular volume (MCV)on 03-13-2021 MCV (RBC) [Entitic vol] 90.1 fL 81-99 [facility] Work Phone: [phone] Hematocrit Auto (Bld) [Volum e fraction]on 03-13-2021 Hematocrit (Bld) [Volume fraction] 37.4 % 37-47 [facility] Work Phone: [phone] Laboratory - Chemistry and C hemistry - challengeon 03-13-2021 ALP [Catalytic activity/Vol] 49 U/L 45-117 [facility] Work Phone: [phone] ALT [Catalytic activity/Vol] 21 U/L 13-56 [facility] Work Phone: [phone] CO2 [Moles/Vol] 22.0 mmol/L 21.0-32.0 [facility] Work Phone: [phone] Globulin (S) [Mass/Vol] 3.0 g/dL 2.2-4.2 [facility] Work Phone: [phone] Urea nitrogen/Creatinine [Mass ratio] 19.8 mg/mg 10-20 [facility] Work Phone: [phone] Laboratory - Hematology and Cell countson 03-13-2021 Erythrocyte distribution width (RBC) [Entitic vol] 44.4 fL 35.1-43.9 [facility] Work Phone: [phone] Erythrocyte distribution width (RBC) [Ratio] 13.4 % 11.6-14.6 [facility] Work Phone: [phone] Immature granulocytes/100 WBC (Bld) 0.300 % 0.0-0.9 [facility] Work Phone: [phone] Comment on above: IG% - Immature Granu locytes (promyelocytes, myelocytes and metamyelocytes) > 1% indicates that a LEFT SHIFT is Present. MCH (RBC) [Entitic mass] 31.1 pg 27.0-32.0 [facility] Work Phone: [phone] Nucleated RBC/100 WBC (Bld) [Ratio] 0 % 0-5 [facility] Work Phone: MCHC Auto (RBC) [Mass/Vol]on 03-13-2021 MCHC (RBC) [Mass/Vol] 34.5 g/dL 32-36 [facility] Work Phone: No Panel Informationon 03-13 Estimated Creatinine Clearance Calc 34.42 ml/min [facility] Work Phone: Estimated GFR (MDRD) Amer 103 mL/min >60 [facility] Work Phone: Comment on above: GFR Calc Estimated GFR (MDRD) Non-Af Amer 85 mL/min >60 [facility] Work Phone: Comment on above: Non- GFR Calc Platelets bldon 03-13-2021 Platelets (Bld) [#/Vol] 129 10*3/uL 150-450 [facility] Work Phone: Serum or plasma albumin guicho urement (mass/volume)on 03-13-2021 Albumin [Mass/Vol] 2.8 g/dL 3.2-5.0 [facility] Work Phone: Serum or plasma albumin/glob ulin mass ratioon 03-13-2021 Albumin/Globulin [Mass ratio] 0.9 {ratio} 0.9-2.4 [facility] Work Phone: Serum or plasma calcium guicho urement (mass/volume)on 03-13-2021 Calcium [Mass/Vol] 8.1 mg/dL 8.5-10.1 [facility] Work Phone: [phone] Serum or plasma creatinine m easurement (mass/volume)on 03-13-2021 Creatinine [Mass/Vol] 0.71 mg/dL 0.55-1.02 [facility] Work Phone: Comment on above: The validity of the calculated GFR & GFRAA in patients over 70 years has not been determined. Clinical correlation is essential. Serum or plasma urea nitroge n measurement (mass/volume)on 03-13-2021 Urea nitrogen [Mass/Vol] 14 mg/dL 7-18 [facility] Work Phone: Thin prep Papanicolaou smear with manual screeningon 03-13-2021 Thin prep Papanicolaou smear with manual screening 26 U/L 15-37 [facility] Work Phone: Thin prep Papanicolaou smear with manual screening 6 5-15 [facility] [facility] Work Phone: Basophil percentageon 2021 Cholesterol [Mass/Vol] 108 mg/dL <200 [facility] Work Phone: [phone] Comment on above: <200 mg/dL Desirable 200-240 mg/dL Borderline >240 mg/dL High Risk Triglyceride [Mass/Vol] 86 mg/dL [facility] Work Phone: [phone] Comment on above: The drugs N-Acetylcy steine and Metamizole may falsely depress this assay.Serum Triglycerides Reference Interval Normal <150 mg/dL Borderline high 150 - 199 mg/dL High 200 - 499 mg/dL Very High > or = 500 mg/dL No Panel Informationon 03-12 Troponin I High Sensitivity 29 pg/mL 3.0-54.0 [facility] Work Phone: Comment on above: Please Note: New Júnior t Units and Gender Specific Reference Ranges. For more information see Policy Stat Procedure [place] High Sensitivity Troponin (TNIH) and attachments. Respiratory Panel (PCR) Influenza A (Subtype H3) [facility] Work Phone: Serum or plasma cholesterol in HDL measurement (mass/volume)on 03-12-2021 Cholesterol in HDL [Mass/Vol] 41 mg/dL [facility] Work Phone: [phone] Comment on above: The drugs N-Acetylcy steine and Metamizole may falsely depress this assay. Reference Range HDL <40 mg/dL Low HDL Cholesterol HDL >or= 60 mg/dL High HDL Cholesterol Serum or plasma cholesterol in VLDL measurement (mass/volume)on 03-12-2021 Cholesterol in VLDL [Mass/Vol] 17 mg/dL 5-40 [facility] Work Phone: [phone] Serum or plasma low density lipoprotein (LDL) cholesterol measurement (mass/volume)on 03-12-2021 Cholesterol in LDL [Mass/Vol] 50 mg/dL 0-130 [facility] Work Phone: Basophil percentageon 2021 Basophil percentage 0-5 SEEN /hpf [facility] Work Phone: Lactate [Moles/Vol] 1.2 mmol/L 0.4-2.0 [facility] Work Phone: Bilirubin Test strip Ql (U)o n 03-11-2021 Bilirubin Ql (U) Negative Negative [facility] Work Phone: Culture, urineon 03-11-2021 Bacteria identified Cx Nom (U) Culture exhibits no growth. [facility] Work Phone: INR in Blood by Coagulation assayon 03-11-2021 INR Coag (Bld) [Relative time] 1.0 {INR} [facility] Work Phone: Ketones Test strip Ql (U)on 03-11-2021 Ketones Ql (U) 5 mg/dl Negative [facility] Work Phone: Laboratory - Coagulationon 0 03-11-2021 aPTT Coag (Bld) [Time] 26.8 s 24.1-36.2 [facility] Work Phone: PT Coag (PPP) [Time] 13.1 s 11.7-14.9 [facility] Work Phone: Laboratory - Drug toxicology on 03-11-2021 Amphetamines Ql (U) Negative [facility] Work Phone: Benzodiazepines Ql (U) Negative [facility] Work Phone: Cannabinoids Screen Ql (U) Negative [facility] Work Phone: Cocaine Ql (U) Negative [facility] Work Phone: Opiates Ql (U) Negative [facility] Work Phone: Laboratory - Microbiology an d Antimicrobial susceptibilityon 03-11-2021 SARS-CoV-2 (COVID-19) RNA KIRBY+probe Ql (Unsp spec) Not detected Not Detect [facility] Work Phone: Comment on above: Normal Reference Ran ge: Not DetectedMethod:(RT-PCR) real-time reverse transcriptase PCRLuminex JAIME Instrument*The Food and Drug Administration (FDA) has issued an Emergency Use Authorization (EAU) for the JAIME SARS-CoV-2 Assay for the rapid detection of the virus that causes COVID-19. This test has been validated, but the FDAs independent review of this validation is pending.*Negative results do not preclude infection and should not be used as the sole basis for treatment or patient management. Optimum specimen types and timing for peak viral levels during infections caused by SARS-CoV-2 have not been determined. Collection of multiple specimens from the same patient may be necessary to detect the virus. The possibility of a false negative result should be considered if the patient has clinical presentation or has had recent exposure. Bacteria identified Cx Nom (Bld) No growth in 5 days. [facility] Work Phone: Mucus LM Ql (Urine sed)on Mucus Ql (Urine sed) 0 SEEN /hpf [facility] Work Phone: Nitrite Test strip Ql (U)on 03-11-2021 Nitrite Ql (U) Negative Negative [facility] Work Phone: No Panel Informationon 03-11 Urine Barbiturates Screen Negative [facility] Work Phone: Urine Drug Screen Comment [facility] Work Phone: Comment on above: CONFIRMATORY TESTING FOR ALL POSITIVE URINE DRUG SCREENRESULTS WILL ONLY BE SENT OUT UPON PHYSICIAN ORDER. VISTA Urine Drug Screen methods provide only preliminaryanalytical test results. A more specific alternate chemicalmethod must be used in order to obtain a confirmedanalytical result. Gas chromatography/mass spectrometery(GC/MS) is the preferred confirmatory method. Clinicalconsideration and professional judgement should be appliedto any drug of abuse test result, particularly whenpreliminary positive results are used. URINE TCA TESTING MUST BE ORDERED SEPARATELY. USE TESTMNEMONIC: [facility] Urine Methadone Screen Negative [facility] Work Phone: Urine Methamphetamine-MDMA Screen Negative [facility] Work Phone: Protein Test strip Ql (U)on 03-11-2021 Protein Ql (U) 15 mg/dl Negative [facility] Work Phone: Squamous epithelial cells de tection in urine sediment by light microscopyon 03-11-2021 Epithelial cells.squamous LM Ql (Urine sed) 0 SEEN /hpf [facility] Work Phone: Urine blood detectionon - RBC Ql (U) 50 /ul Negative [facility] Work Phone: RBC Ql (U) 10-25 SEEN /hpf [facility] Work Phone: Urine clarityon 03-11-2021 Clarity (U) Clear Clear [facility] Work Phone: Urine color determinationon 03-11-2021 Color (U) Yellow Yellow [facility] Work Phone: Urine glucose detectionon Glucose Ql (U) Normal mg/dl Normal [facility] Work Phone: Urine leukocyte esterase det ection by dipstickon 03-11-2021 Leukocyte esterase Test strip Ql (U) Negative Negative [facility] Work Phone: Urine pHon 03-11-2021 pH (U) 6.5 [pH] [facility] Work Phone: Urine phencyclidine (PCP) de tectionon 03-11-2021 Phencyclidine Ql (U) Negative [facility] Work Phone: Urine sediment bacteria coun t by microscopy (number/high power field)on 03-11-2021 Bacteria LM.HPF (Urine sed) [#/Area] 0 /[HPF] None Seen [facility] Work Phone: [phone] Urine specific gravity measu rementon 03-11-2021 Specific gravity (U) [Rel density] 1.015 [facility] Work Phone: Urobilinogen Auto test strip Ql (U)on 03-11-2021 Urobilinogen Ql (U) 1 mg/dl Normal [facility] Work Phone: LABORATORYOrdered By: Shanti Vincent on 12-06-2020 Albumin BCP dye [Mass/Vol] 3.2 G/dL Invalid Interpretation Code 3.4 - 4.8 G/dL AO ADM SS Albumin/Globulin [Mass ratio] 1.1 {ratio} Invalid Interpretation Code 1.1 - 2.5 ratio AO ADM SS ALP [Catalytic activity/Vol] 48 U/L Invalid Interpretation Code 40 - 135 U/L AO ADM SS ALT With P-5'-P [Catalytic activity/Vol] 22 U/L Invalid Interpretation Code 14 - 59 U/L AO ADM SS aPTT Coag (Bld) [Time] 28.6 s Invalid Interpretation Code 24.8 - 33.3 seconds AO Coag SS AST With P-5'-P [Catalytic activity/Vol] 20 U/L Invalid Interpretation Code 10 - 40 U/L AO ADM SS Bilirubin [Mass/Vol] 0.6 mg/dL Invalid Interpretation Code 0.2 - 1.0 mg/dL AO ADM SS Calcium [Mass/Vol] 8.4 mg/dL Invalid Interpretation Code 8.4 - 10.2 mg/dL AO ADM SS Chloride [Moles/Vol] 103 mmol/L Invalid Interpretation Code 98 - 107 mmol/L AO ADM SS CO2 [Moles/Vol] 23 mmol/L Invalid Interpretation Code 23 - 31 mmol/L AO ADM SS Creatinine [Mass/Vol] 0.80 mg/dL Invalid Interpretation Code 0.55 - 1.02 mg/dL AO ADM SS CRP [Mass/Vol] 1.1 mg/dL Invalid Interpretation Code 0.0 - 0.9 mg/dL AO ADM SS Electrolyte Balance 10.0 mEq/L Invalid Interpretation Code AO ADM SS Fibrin D-dimer DDU (PPP) [Mass/Vol] 241 ng/mL D-DU Invalid Interpretation Code 0 - 230 ng/mL D-DU AO Coag SS Fibrinogen Coag (PPP) [Mass/Vol] 483 mg/dL Invalid Interpretation Code 334 - 713 mg/dL AO Coag SS Globulin 3.0 G/dL Invalid Interpretation Code AO ADM SS Glucose [Mass/Vol] 137 mg/dL Invalid Interpretation Code 83 - 110 mg/dL AO ADM SS Heparin dose (APTT) Unknown (12/06/20 4:37 AM) Invalid Interpretation Code AO Coag SS INR Coag (PPP) [Relative time] 1.1 {INR} Invalid Interpretation Code 0.9 - 1.2 ratio AO Coag SS Magnesium [Mass/Vol] 2.2 mg/dL Invalid Interpretation Code 1.8 - 2.4 mg/dL AO ADM SS Potassium [Moles/Vol] 4.1 mmol/L Invalid Interpretation Code 3.5 - 5.1 mmol/L AO ADM SS Protein [Mass/Vol] 6.2 G/dL Invalid Interpretation Code 6.4 - 8.2 G/dL AO ADM SS PT Coag (PPP) [Time] 13.0 s Invalid Interpretation Code 9.7 - 14.3 seconds AO Coag SS Sodium [Moles/Vol] 136 mmol/L Invalid Interpretation Code 136 - 145 mmol/L AO ADM SS Troponin I.cardiac DL <= 0.01 ng/mL [Mass/Vol] 23.9 ng/L Invalid Interpretation Code 0.0 - 51.4 ng/L AO ADM SS Urea nitrogen [Mass/Vol] 17 mg/dL Invalid Interpretation Code 7 - 18 mg/dL AO ADM SS Urea nitrogen/Creatinine [Mass ratio] 21 ratio Invalid Interpretation Code 7 - 27 ratio AO ADM SS LABORATORYOrdered By: Shayna Richey on 12-06-2020 Basophil, Absolute 0.00 103/mcL Invalid Interpretation Code 0.00 - 0.19 10^3/mcL AO Auto Heme SS Basophils/100 WBC (Bld) 0.2 % Invalid Interpretation Code 0.0 - 2.5 % AO Auto Heme SS Eosinophil, Absolute 0.00 103/mcL Invalid Interpretation Code 0.00 - 0.40 10^3/mcL AO Auto Heme SS Eosinophils/100 WBC (Bld) 0.0 % Invalid Interpretation Code 0.0 - 7.0 % AO Auto Heme SS Erythrocyte distribution width (RBC) [Ratio] 14.3 % Invalid Interpretation Code 11.5 - 14.5 % AO Auto Heme SS Hematocrit (Bld) [Volume fraction] 42.3 % Invalid Interpretation Code 37.0 - 47.0 % AO Auto Heme SS Hemoglobin (Bld) [Mass/Vol] 15.0 G/dL Invalid Interpretation Code 12.0 - 16.0 G/dL AO Auto Heme SS Lymphocyte, Absolute 1.70 103/mcL Invalid Interpretation Code 0.77 - 3.85 10^3/mcL AO Auto Heme SS Lymphocytes/100 WBC (Bld) 31.1 % Invalid Interpretation Code 10.0 - 50.0 % AO Auto Heme SS MCH (RBC) [Entitic mass] 30.9 pg Invalid Interpretation Code 27.0 - 31.2 pg AO Auto Heme SS MCHC (RBC) [Mass/Vol] 35.5 G/dL Invalid Interpretation Code 33.0 - 37.0 G/dL AO Auto Heme SS MCV (RBC) [Entitic vol] 87.1 fL Invalid Interpretation Code 80.0 - 94.0 fL AO Auto Heme SS Monocyte, Absolute 0.50 103/mcL Invalid Interpretation Code 0.15 - 1.00 10^3/mcL AO Auto Heme SS Monocytes/100 WBC (Bld) 9.8 % Invalid Interpretation Code 1.7 - 13.0 % AO Auto Heme SS Neutrophil, Absolute 3.20 103/mcL Invalid Interpretation Code 2.85 - 6.16 10^3/mcL AO Auto Heme SS Neutrophils/100 WBC (Bld) 58.9 % Invalid Interpretation Code 37.0 - 80.0 % AO Auto Heme SS Platelet mean volume (Bld) [Entitic vol] 10.3 fL Invalid Interpretation Code 7.4 - 10.4 fL AO Auto Heme SS Platelets (Bld) [#/Vol] 108 103/mcL Invalid Interpretation Code 130 - 400 10^3/mcL AO Auto Heme SS RBC (Bld) [#/Vol] 4.86 106/mcL Invalid Interpretation Code 4.20 - 5.40 10^6/mcL AO Auto Heme SS WBC (Bld) [#/Vol] 5.40 103/mcL Invalid Interpretation Code 4.60 - 10.80 10^3/mcL AO Auto Heme SS LABORATORYOrdered By: SYSTEM SYSTEM on 12-06-2020 Ferritin [Mass/Vol] 292.9 ng/mL Invalid Interpretation Code 8.0 - 252.0 ng/mL AH ADM SS GFR 84 ml/min/1.73sqm Invalid Interpretation Code AO Chemistry S GFR Non- 69 ml/min/1.73sqm Invalid Interpretation Code AO Chemistry S LABORATORYOrdered By: Shanti Vincent on 12-05-2020 Albumin BCP dye [Mass/Vol] 3.2 G/dL Invalid Interpretation Code 3.4 - 4.8 G/dL AO ADM SS Albumin/Globulin [Mass ratio] 1.0 {ratio} Invalid Interpretation Code 1.1 - 2.5 ratio AO ADM SS ALP [Catalytic activity/Vol] 57 U/L Invalid Interpretation Code 40 - 135 U/L AO ADM SS ALT With P-5'-P [Catalytic activity/Vol] 25 U/L Invalid Interpretation Code 14 - 59 U/L AO ADM SS aPTT Coag (Bld) [Time] 28.2 s Invalid Interpretation Code 24.8 - 33.3 seconds AO Coag SS AST With P-5'-P [Catalytic activity/Vol] 25 U/L Invalid Interpretation Code 10 - 40 U/L AO ADM SS Bilirubin [Mass/Vol] 0.5 mg/dL Invalid Interpretation Code 0.2 - 1.0 mg/dL AO ADM SS Calcium [Mass/Vol] 8.6 mg/dL Invalid Interpretation Code 8.4 - 10.2 mg/dL AO ADM SS Chloride [Moles/Vol] 103 mmol/L Invalid Interpretation Code 98 - 107 mmol/L AO ADM SS CO2 [Moles/Vol] 23 mmol/L Invalid Interpretation Code 23 - 31 mmol/L AO ADM SS CPK 41 1 Invalid Interpretation Code 26 - 192 U/L AO ADM SS Creatinine [Mass/Vol] 0.80 mg/dL Invalid Interpretation Code 0.55 - 1.02 mg/dL AO ADM SS CRP [Mass/Vol] 1.1 mg/dL Invalid Interpretation Code 0.0 - 0.9 mg/dL AO ADM SS Electrolyte Balance 11.0 mEq/L Invalid Interpretation Code AO ADM SS Fibrinogen Coag (PPP) [Mass/Vol] 501 mg/dL Invalid Interpretation Code 334 - 713 mg/dL AO Coag SS Globulin 3.2 G/dL Invalid Interpretation Code AO ADM SS Glucose [Mass/Vol] 118 mg/dL Invalid Interpretation Code 83 - 110 mg/dL AO ADM SS Heparin dose (APTT) Unknown (12/05/20 4:48 AM) Invalid Interpretation Code AO Coag SS INR Coag (PPP) [Relative time] 1.1 {INR} Invalid Interpretation Code 0.9 - 1.2 ratio AO Coag SS Magnesium [Mass/Vol] 2.1 mg/dL Invalid Interpretation Code 1.8 - 2.4 mg/dL AO ADM SS Potassium [Moles/Vol] 4.3 mmol/L Invalid Interpretation Code 3.5 - 5.1 mmol/L AO ADM SS Protein [Mass/Vol] 6.4 G/dL Invalid Interpretation Code 6.4 - 8.2 G/dL AO ADM SS PT Coag (PPP) [Time] 12.4 s Invalid Interpretation Code 9.7 - 14.3 seconds AO Coag SS Sodium [Moles/Vol] 137 mmol/L Invalid Interpretation Code 136 - 145 mmol/L AO ADM SS Troponin I.cardiac DL <= 0.01 ng/mL [Mass/Vol] 25.1 ng/L Invalid Interpretation Code 0.0 - 51.4 ng/L AO ADM SS Urea nitrogen [Mass/Vol] 16 mg/dL Invalid Interpretation Code 7 - 18 mg/dL AO ADM SS Urea nitrogen/Creatinine [Mass ratio] 20 ratio Invalid Interpretation Code 7 - 27 ratio AO ADM SS LABORATORYOrdered By: Shayna Richey on 12-05-2020 Basophil, Absolute 0.00 103/mcL Invalid Interpretation Code 0.00 - 0.19 10^3/mcL AO Auto Heme SS Basophils/100 WBC (Bld) 0.3 % Invalid Interpretation Code 0.0 - 2.5 % AO Auto Heme SS Eosinophil, Absolute 0.00 103/mcL Invalid Interpretation Code 0.00 - 0.40 10^3/mcL AO Auto Heme SS Eosinophils/100 WBC (Bld) 0.0 % Invalid Interpretation Code 0.0 - 7.0 % AO Auto Heme SS Erythrocyte distribution width (RBC) [Ratio] 13.9 % Invalid Interpretation Code 11.5 - 14.5 % AO Auto Heme SS Fibrin D-dimer DDU (PPP) [Mass/Vol] 298 ng/mL D-DU Invalid Interpretation Code 0 - 230 ng/mL D-DU AO Coag SS Hematocrit (Bld) [Volume fraction] 43.6 % Invalid Interpretation Code 37.0 - 47.0 % AO Auto Heme SS Hemoglobin (Bld) [Mass/Vol] 15.4 G/dL Invalid Interpretation Code 12.0 - 16.0 G/dL AO Auto Heme SS Lymphocyte, Absolute 1.40 103/mcL Invalid Interpretation Code 0.77 - 3.85 10^3/mcL AO Auto Heme SS Lymphocytes/100 WBC (Bld) 47.0 % Invalid Interpretation Code 10.0 - 50.0 % AO Auto Heme SS MCH (RBC) [Entitic mass] 31.0 pg Invalid Interpretation Code 27.0 - 31.2 pg AO Auto Heme SS MCHC (RBC) [Mass/Vol] 35.3 G/dL Invalid Interpretation Code 33.0 - 37.0 G/dL AO Auto Heme SS MCV (RBC) [Entitic vol] 87.7 fL Invalid Interpretation Code 80.0 - 94.0 fL AO Auto Heme SS Monocyte, Absolute 0.40 103/mcL Invalid Interpretation Code 0.15 - 1.00 10^3/mcL AO Auto Heme SS Monocytes/100 WBC (Bld) 12.5 % Invalid Interpretation Code 1.7 - 13.0 % AO Auto Heme SS Neutrophil, Absolute 1.20 103/mcL Invalid Interpretation Code 2.85 - 6.16 10^3/mcL AO Auto Heme SS Neutrophils/100 WBC (Bld) 40.2 % Invalid Interpretation Code 37.0 - 80.0 % AO Auto Heme SS Platelet mean volume (Bld) [Entitic vol] 10.2 fL Invalid Interpretation Code 7.4 - 10.4 fL AO Auto Heme SS Platelets (Bld) [#/Vol] 107 103/mcL Invalid Interpretation Code 130 - 400 10^3/mcL AO Auto Heme SS RBC (Bld) [#/Vol] 4.97 106/mcL Invalid Interpretation Code 4.20 - 5.40 10^6/mcL AO Auto Heme SS WBC (Bld) [#/Vol] 3.10 103/mcL Invalid Interpretation Code 4.60 - 10.80 10^3/mcL AO Auto Heme SS LABORATORYOrdered By: SYSTEM SYSTEM on 12-05-2020 Ferritin [Mass/Vol] 180.2 ng/mL Invalid Interpretation Code 8.0 - 252.0 ng/mL AH ADM SS GFR 84 ml/min/1.73sqm Invalid Interpretation Code AO Chemistry S GFR Non- 69 ml/min/1.73sqm Invalid Interpretation Code AO Chemistry S LABORATORYOrdered By: Corrina Hwang on 12-04-2020 Albumin BCP dye [Mass/Vol] 3.2 G/dL Invalid Interpretation Code 3.4 - 4.8 G/dL AO ADM SS Albumin/Globulin [Mass ratio] 1.1 {ratio} Invalid Interpretation Code 1.1 - 2.5 ratio AO ADM SS ALP [Catalytic activity/Vol] 50 U/L Invalid Interpretation Code 40 - 135 U/L AO ADM SS ALT With P-5'-P [Catalytic activity/Vol] 23 U/L Invalid Interpretation Code 14 - 59 U/L AO ADM SS AST With P-5'-P [Catalytic activity/Vol] 28 U/L Invalid Interpretation Code 10 - 40 U/L AO ADM SS Atypical Lymphs 13.0 1 Invalid Interpretation Code 0.0 - 5.0 % AO Auto Heme SS Band form neutrophils (Bld) [#/Vol] 5.0 10*3/uL Invalid Interpretation Code 0.0 - 5.0 % AO Auto Heme SS Basophil %, Manual 0.0 1 Invalid Interpretation Code 0.0 - 2.5 % AO Auto Heme SS Basophil, Abs Manual 0.00 103/mcL Invalid Interpretation Code 0.00 - 0.19 10^3/mcL AO Auto Heme SS Bilirubin [Mass/Vol] 0.4 mg/dL Invalid Interpretation Code 0.2 - 1.0 mg/dL AO ADM SS C-Reactive Protein mg/dL Invalid Interpretation Code 0.0 - 0.9 mg/dL AO Chemistry S Calcium [Mass/Vol] 8.4 mg/dL Invalid Interpretation Code 8.4 - 10.2 mg/dL AO ADM SS Chloride [Moles/Vol] 103 mmol/L Invalid Interpretation Code 98 - 107 mmol/L AO ADM SS CO2 [Moles/Vol] 25 mmol/L Invalid Interpretation Code 23 - 31 mmol/L AO ADM SS Creatinine [Mass/Vol] 0.80 mg/dL Invalid Interpretation Code 0.55 - 1.02 mg/dL AO ADM SS Electrolyte Balance 10.0 mEq/L Invalid Interpretation Code AO ADM SS Eosinophil %, Manual 0.0 1 Invalid Interpretation Code 0.0 - 7.0 % AO Auto Heme SS Eosinophil, Abs Manual 0.00 103/mcL Invalid Interpretation Code 0.00 - 0.40 10^3/mcL AO Auto Heme SS Erythrocyte distribution width (RBC) [Ratio] 14.0 % Invalid Interpretation Code 11.5 - 14.5 % AO Auto Heme SS Fibrin D-dimer DDU (PPP) [Mass/Vol] 348 ng/mL D-DU Invalid Interpretation Code 0 - 230 ng/mL D-DU AO Coag SS Globulin 2.8 G/dL Invalid Interpretation Code AO ADM SS Glucose [Mass/Vol] 96 mg/dL Invalid Interpretation Code 83 - 110 mg/dL AO ADM SS Hematocrit (Bld) [Volume fraction] 42.4 % Invalid Interpretation Code 37.0 - 47.0 % AO Auto Heme SS Hemoglobin (Bld) [Mass/Vol] 14.7 G/dL Invalid Interpretation Code 12.0 - 16.0 G/dL AO Auto Heme SS LDH [Catalytic activity/Vol] 227 U/L Invalid Interpretation Code 81 - 234 U/L AO ADM SS Lymphocyte %, Manual 32.0 1 Invalid Interpretation Code 10.0 - 50.0 % AO Auto Heme SS Lymphocyte, Abs Manual 1.44 103/mcL Invalid Interpretation Code 0.77 - 3.85 10^3/mcL AO Auto Heme SS Magnesium [Mass/Vol] 2.1 mg/dL Invalid Interpretation Code 1.8 - 2.4 mg/dL AO ADM SS MCH (RBC) [Entitic mass] 30.8 pg Invalid Interpretation Code 27.0 - 31.2 pg AO Auto Heme SS MCHC (RBC) [Mass/Vol] 34.7 G/dL Invalid Interpretation Code 33.0 - 37.0 G/dL AO Auto Heme SS MCV (RBC) [Entitic vol] 88.6 fL Invalid Interpretation Code 80.0 - 94.0 fL AO Auto Heme SS Monocyte %, Manual 18.0 1 Invalid Interpretation Code 1.7 - 13.0 % AO Auto Heme SS Monocyte, Abs Manual 0.57 103/mcL Invalid Interpretation Code 0.15 - 1.00 10^3/mcL AO Auto Heme SS Neutrophil %, Manual 32.0 1 Invalid Interpretation Code 37.0 - 80.0 % AO Auto Heme SS Neutrophil, Abs Manual 1.18 103/mcL Invalid Interpretation Code 2.85 - 6.16 10^3/mcL AO Auto Heme SS Platelet Estimate Slt Decreased (12/04/20 4:28 AM) Invalid Interpretation Code AO Auto Heme SS Platelet mean volume (Bld) [Entitic vol] 10.5 fL Invalid Interpretation Code 7.4 - 10.4 fL AO Auto Heme SS Platelets (Bld) [#/Vol] 109 103/mcL Invalid Interpretation Code 130 - 400 10^3/mcL AO Auto Heme SS Potassium [Moles/Vol] 4.0 mmol/L Invalid Interpretation Code 3.5 - 5.1 mmol/L AO ADM SS Protein [Mass/Vol] 6.0 G/dL Invalid Interpretation Code 6.4 - 8.2 G/dL AO ADM SS RBC (Bld) [#/Vol] 4.79 106/mcL Invalid Interpretation Code 4.20 - 5.40 10^6/mcL AO Auto Heme SS Sodium [Moles/Vol] 138 mmol/L Invalid Interpretation Code 136 - 145 mmol/L AO ADM SS Toxic granules LM Ql (Bld) Slight (12/04/20 4:28 AM) Invalid Interpretation Code AO Auto Heme SS Urea nitrogen [Mass/Vol] 13 mg/dL Invalid Interpretation Code 7 - 18 mg/dL AO ADM SS Urea nitrogen/Creatinine [Mass ratio] 16 ratio Invalid Interpretation Code 7 - 27 ratio AO ADM SS WBC (Bld) [#/Vol] 3.20 103/mcL Invalid Interpretation Code 4.60 - 10.80 10^3/mcL AO Auto Heme SS LABORATORYOrdered By: SYSTEM SYSTEM on 12-04-2020 Ferritin [Mass/Vol] 115.7 ng/mL Invalid Interpretation Code 8.0 - 252.0 ng/mL AH ADM SS GFR 84 ml/min/1.73sqm Invalid Interpretation Code AO Chemistry S GFR Non- 69 ml/min/1.73sqm Invalid Interpretation Code AO Chemistry S LABORATORYOrdered By: Shayna Richey on 12-04-2020 Fibrinogen Coag (PPP) [Mass/Vol] 437 mg/dL Invalid Interpretation Code 334 - 713 mg/dL AO Coag SS INR Coag (PPP) [Relative time] 1.0 {INR} Invalid Interpretation Code 0.9 - 1.2 ratio AO Coag SS PT Coag (PPP) [Time] 11.8 s Invalid Interpretation Code 9.7 - 14.3 seconds AO Coag SS Troponin I.cardiac DL <= 0.01 ng/mL [Mass/Vol] 27.8 ng/L Invalid Interpretation Code 0.0 - 51.4 ng/L AO ADM SS LABORATORYOrdered By: Ilsa Barr on 12-03-2020 Appearance (U) Clear (12/03/20 8:40 PM) Invalid Interpretation Code Clear AO Auto Urine SS Bilirubin Ql (U) Negative (12/03/20 8:40 PM) Invalid Interpretation Code Negative AO Auto Urine SS Color (U) Yellow (12/03/20 8:40 PM) Invalid Interpretation Code AO Auto Urine SS Glucose Test strip (U) [Mass/Vol] Negative Invalid Interpretation Code Negativemg /dL AO Auto Urine SS Hemoglobin Auto test strip (U) [Mass/Vol] Small *ABN* (12/03/20 8:40 PM) Invalid Interpretation Code Negative AO Auto Urine SS Ketones Ql (U) 15 mg/dL Invalid Interpretation Code Negativemg /dL AO Auto Urine SS UA Leuk Est Negative (12/03/20 8:40 PM) Invalid Interpretation Code Negative AO Auto Urine SS UA Nitrite Negative (12/03/20 8:40 PM) Invalid Interpretation Code Negative AO Auto Urine SS UA pH 6.0 (12/03/20 8:40 PM) Invalid Interpretation Code 5.0 - 8.0 AO Auto Urine SS UA Protein Negative Invalid Interpretation Code Negativemg /dL AO Auto Urine SS UA Spec Grav >=1.030 *ABN* (12/03/20 8:40 PM) Invalid Interpretation Code 1.015-1.02 5 AO Auto Urine SS UA Specimen Type Clean Catch (12/03/20 8:40 PM) Invalid Interpretation Code AO Auto Urine SS UA Urobilinogen 1.0 E.U./dL Invalid Interpretation Code 0.2-1.0E.U ./dL AO Auto Urine SS ADMITTED TO INTENSIVE CARE UNIT FOR CONDITION OF INTEREST:FIND:PT:^PAT IENT:ORD: No (12/03/20 6:34 PM) Invalid Interpretation Code AO Auto Urine SS Basophil %, Manual 0.0 1 Invalid Interpretation Code 0.0 - 2.5 % AO Auto Heme SS Basophil, Abs Manual 0.00 103/mcL Invalid Interpretation Code 0.00 - 0.19 10^3/mcL AO Auto Heme SS EMPLOYED IN A HEALTHCARE SETTING:FIND:PT:^ROME ENT:ORD: No (12/03/20 6:34 PM) Invalid Interpretation Code AO Auto Urine SS Eosinophil %, Manual 0.0 1 Invalid Interpretation Code 0.0 - 7.0 % AO Auto Heme SS Eosinophil, Abs Manual 0.00 103/mcL Invalid Interpretation Code 0.00 - 0.40 10^3/mcL AO Auto Heme SS FIRST TEST FOR CONDITION OF INTEREST:FIND:PT:^PAT IENT:ORD: Unknown (12/03/20 6:34 PM) Invalid Interpretation Code AO Auto Urine SS HAS SYMPTOMS RELATED TO CONDITION OF INTEREST:FIND:PT:^PAT IENT:ORD: Yes (12/03/20 6:34 PM) Invalid Interpretation Code AO Auto Urine SS Illness or injury onset date and time [id number] Invalid Interpretation Code AO Auto Urine SS Lymphocyte %, Manual 48.0 1 Invalid Interpretation Code 10.0 - 50.0 % AO Auto Heme SS Lymphocyte, Abs Manual 1.39 103/mcL Invalid Interpretation Code 0.77 - 3.85 10^3/mcL AO Auto Heme SS Monocyte %, Manual 16.0 1 Invalid Interpretation Code 1.7 - 13.0 % AO Auto Heme SS Monocyte, Abs Manual 0.46 103/mcL Invalid Interpretation Code 0.15 - 1.00 10^3/mcL AO Auto Heme SS Neutrophil %, Manual 36.0 1 Invalid Interpretation Code 37.0 - 80.0 % AO Auto Heme SS Neutrophil, Abs Manual 1.04 103/mcL Invalid Interpretation Code 2.85 - 6.16 10^3/mcL AO Auto Heme SS Patient was hospitalized because of this condition Yes (12/03/20 6:34 PM) Invalid Interpretation Code AO Auto Urine SS Platelet Estimate Slt Decreased (12/03/20 6:34 PM) Invalid Interpretation Code AO Auto Heme SS status Not (12/03/20 6:34 PM) Invalid Interpretation Code AO Auto Urine SS RESIDES IN A CONGREGATE CARE SETTING:FIND:PT:^ROME ENT:ORD: No (12/03/20 6:34 PM) Invalid Interpretation Code AO Auto Urine SS SARS-CoV-2 (COVID-19) RNA KIRBY+probe Ql (Resp) Positive *ABN* (12/03/20 6:34 PM) Invalid Interpretation Code Negative AO Auto Urine SS SARS-CoV-2 (COVID-19) RNA KIRBY+probe Ql (Unsp spec) Positive results are indicative of the presence of SARS-CoV-2 RNA; clinical correlation with patient history and other diagnostic information is necessary to determine patient infection status. Positive results do not rule out bacterial infection or co-infection with other viruses. The agent detected may not be the definite cause of disease. Laboratories within the [facility] and its territories are required to report all positive results to the appropriate public health authorities.Detection of analyte target(s) does not imply that the corresponding virus(es) are infectious or are the causative agents for clinical symptoms.There is a risk of false positive values resulting from cross-contamination by target organisms, their nucleic acids or amplified product, or from non-specific signals in the assay.JAIME SARS-CoV-2 Assay is a Real-Time reverse-transcriptase polymerase chain reaction (RT-PCR) based qualitative in vitro diagnostic test intended for the qualitative detection of nucleic acid from the SARS-CoV-2 in nasopharyngeal swab specimens collected from individuals suspected of COVID-19 by their healthcare provider. Testing is limited to laboratories certified under the Clinical Laboratory Improvement Amendments of 1988 (CLIA), 42 U.S.C. 263a, to perform moderate and high complexity tests. Invalid Interpretation Code AO Auto Urine SS LABORATORYOrdered By: Kem Rendon on 12-03-2020 Lactate [Moles/Vol] 0.9 mmol/L Invalid Interpretation Code 0.4 - 2.0 mmol/L AO ADM SS No Panel Informationon 12-03 Culture Urine 50,000 - 100,000 cfu /ml Multiple bacterial morphotypes present. Probable Contamination. Suggest recollection if clinically indicated. [facility] Work Phone: Microscopic examination of blood, culture Culture has been received in lab and is no growth to date. Routine cultures are held for 5 days. [facility] Work Phone: CNOVon 10-13-2017 CNOV Office Visit (AKURFL) -------JOANN SANCHEZ ([id number]) 1940 FDate Time Provider Department10/13/17 9:00 AM BIMAL RODRIGUEZ During your visit today, we recorded the following information about you: Blood pressure Weight Height 118/60 45.4 kg 1.575 Tiffani Rodriguez DO, MBA 10/13/2017 9:47 AM Signed??[facility] InstituteSUB[facility] UROLOGYLOCATION: [facility] [id number] PATIENT HISTORY AND PHYSICAL EXAMPATIENT INFO: Joann Sanchez 77 year oldREFERRING Aldair: Hector CostelloPCP: Hector Costello, MDConsultation requested by Hector Costello MD and my final recommendationswill be communicated back to the requesting physician by way of shared medicalrecord or letter via US mail.Chief Complaint: Right Flank Pain/Right UPJOHPIPat is here for evaluation of intermittent flank pain on the rightShe has significant rheumatoid arthritis and is also a heavy smokerCT scan in July demonstrated a right sided hydronephrosis possiblenonobstructive UPJ obstructionRenal scan demonstrated equivalent T1 half with 40% function on the rightAt this time she is feeling better and pain-freeIt is hard for her to delineate between back pain(kidney) or rheumatoid painNo hematuriaNo stonesNo UTIs1-Duration: 27290-Zbytamvo: kidney3-Severity: N/A4-Quality: Not applicable5-Context: N/A6-Timing: N/A7-Modifying factors: No treatment prior to referral8-Associated signs AND symptoms: no additional symptomsICIQ: NAPATHOLOGY:N/ALAB:WBC (k/uL)Date Value08/07/2017 9.77RBC (m/uL)Date Value08/07/2017 4.56Hemoglobin (g/dL)Date Value08/07/2017 14.5Hematocrit (%)Date Value08/07/2017 43.6MCV (fL)Date Value08/07/2017 95.6MCH (pG)Date Value08/07/2017 31.8MCHC (g/dL)Date Value08/07/2017 33.3RDW-CV (%)Date Value08/07/2017 13.8Platelet Count (k/uL)Date Value08/07/2017 181MPV (fL)Date Value08/07/2017 11.9Neut% (%)Date Value08/07/2017 59.5Lymph% (%)Date Value08/07/2017 31.6Mono% (%)Date Value08/07/2017 8.5Eosin% (%)Date Value08/07/2017 0.1Baso% (%)Date Value08/07/2017 0.3Abs Neut (ANC) (k/uL)Date Value08/07/2017 5.81Abs [place] (k/uL)Date Value08/07/2017 0.83Abs Eosin (k/uL)Date Value08/07/2017 <0.03Abs Baso (k/uL)Date Value08/07/2017 0.03CreatinineDate Value Ref Range Xpmwsn7708/07/2017 0.92 0.58 - 0.96 mg/dL Final07/13/2017 0.81 0.58 - 0.96 mg/dL Final04/21/2017 0.76 0.58 - 0.96 mg/dL Final04/09/2017 0.81 0.58 - 0.96 mg/dL Final No results found for: PSApH, UrineDate Value Ref Range Yvsxyc8108/07/2017 6.0 4.5 - 8.0 Final Specific [place], UrDate Value Ref Range Kugqam9808/07/2017 1.017 1.005 - 1.030 Final Glucose, UrineDate Value Ref Range Zrvxvf3008/07/2017 Negative Negative mg/dL Final Bilirubin, UrineDate Value Ref Range Axeobj6008/07/2017 Negative Negative Final Ketones, UrineDate Value Ref Range Mzqqfn8708/07/2017 Negative Negative Final Hemoglobin/B lood,UrDate Value Ref Range Ftzhpe6608/07/2017 Negative Negative Final Protein, UrineDate Value Ref Range Uompar2808/07/2017 Negative Negative mg/dL Final Urobilinogen Date Value Ref Range Ixmrky5908/07/2017 Normal Normal Final NitritesDate Value Ref Range Saixej5708/07/2017 Negative Negative Final IMAGING: ABOVEReviewed with patientALLERGIES:ALLERGIESN o Known AllergiesMEDICATIONS:Etaner cept (ENBREL) 50 mg/mL (0.98 mL) injection Inject 1 mL subcutaneouslyonce each week. entire contents of 1 syringe (50mg/1mL).aspirin, enteric coated (ASPIRIN, ENTERIC COATED) 81 mg EC tablet Take 81 mg bymouth once daily.methotrexate 2.5 mg tablet Take 8 tablets by mouth once each week.folic acid 1 mg tablet Take 1 tablet by mouth once daily.alendronate (FOSAMAX) 70 mg tablet Take 1 tablet by mouth once each week. TAKEIN THE MORNING WITH A FULL GLASS OF WATER ON AN EMPTY STOMACH. DO NOT TAKEANYTHING ELSE BY MOUTH OR LIE DOWN FOR THE NEXT 30 MINUTES.CALCIUM CARBONATE (CALCIUM 600 ORAL) Take by mouth once daily.cholecalciferol (VITAMIN D) 1,000 unit tab tablet Take 1,000 Units by mouthonce daily.Does the patient take any herbal medications?: NoMedication list reviewed and reconciled with patient: YesHISTORIESPAST MEDICAL HISTORYDiagnosis Date- Diverticulosis of colon (without mention of hemorrhage)- Essential hypertension, benign- Osteoporosis, unspecified- Pneumonia, organism unspecified(486) 1994- Rheumatoid arthritis (HCC)- Urinary calculus, unspecified 11/09 passed spontaneousPAST SURGICAL HISTORYProcedure Laterality Date- COLONOSCOP W/ OR W/O BRS SPEC 10/20/2007 Colonoscopy- REMOVAL GALLBLADDER 1997 CholecystectomyFAMILY HISTORYProblem Relation Age of Onset- Emphysema Mother smoker- Cancer Father liver cancer, bone cancer- Diabetes Father- Diabetes Paternal Grandmother- Diabetes Paternal Aunt- Diabetes Maternal AuntNegative family history: NoSOCIAL HISTORYSocial HistorySubstance Use Topics- Smoking status: Current Every Day Smoker Packs/day: 1.50 Years: 40.00 Types: Cigarettes- Smokeless tobacco: Never Used- Alcohol use NoSmoking Status Reviewed: YesNo question data found.REVIEW OF SYSTEMSGeneral:No weight loss, malaise or fevers., SEE HPIHEENT:Negative for frequent or significant headaches, No changes in hearing orvision, no nose bleeds or other nasal problemsNeck:Negative for lumps, goiter, pain and significant neck swellingRespiratory: Negative for cough, wheezing or shortness of breath.Cardiovascular: Negative for chest pain, leg swelling or palpitations.Gastrointestin al: Negative for abdominal discomfort, blood in stools or blackstools or change in bowel habitsGenitourinary: No history of dysuria, frequency or incontinenceMusculoskeletal : Negative for joint pain or swelling, back pain or muscle pain.Skin:Negative for lesions, rash, and itching.Double End Sewer: Negative for abnormal vaginal bleeding, abnormal vaginal dischargeThe remainder of the ROS was negative.PHYSICAL EXAMINATIONBP 118/60 Ht 157.5 cm (5' 2) Wt 45.4 kg (100 lb) BMI 18.29 kg/m?General appearance: Well appearing, alert, in no acute distress andwell-hydrated, well nourishedSkin: Skin color, texture, turgor normal, no suspicious rashes or lesionsHead: Normocephalic, no masses, lesions, tenderness or abnormalitiesNeck: Supple, no adenopathy; thyroid symmetric, normal size, no bruitsLungs: Clear to auscultation, no wheezing or rhonchiHeart: RRR without murmur, gallop, or rubs. No ectopyAbdomen: Normal abdominal exam, Abdomen soft, non-tender. Bowel sounds normal.No masses, organomegalyExtremities: Extremities normal. No deformities, edema, or skin discoloration.Good capillary refill.Genitourinary: Exam NOT IndicatedPVR: NAIMPRESSION/PLAN:Intermitt ent - now resolved right flank painShe has a silent right UPJ obstructionRenal scan and CT scan reviewed- at this time she has equivalent T1/2 and 40%function on the rightNo intervention needed at this timeShe is a heavy smoker and has rheumatoid arthritisConsider stent in the future if considering repairI will relay this information to El Mary/Gail as neededPatient and her are in agreement with the DO Kaur Iglesias to: Loretta Henderson Provider: HECTOR COSTELLO [[id number]]Allergies As of Date: 10/13/2017(No Known Allergies)Date Reviewed: 10/13/2017Reviewed by: Bimal Rodriguez - Fully AssessedReason for Visit: Kidney Problem [61]Primary Visit Diagnosis: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 CHOLECALCIFEROL (VITAMIN D3) * Take 1,000 Units by mouth onc*Problem List As Of Date 10/13/2017 Noted Resolved TOBACCO USE DISORDER [F17.200] INVALID FOR* More... CHRONIC AIRWAY OBSTRUCTION NEC [J44.9] INVALID FOR* Osteoporosis [M81.0] INVALID FOR* ELEV BL PRES W/O HYPERTN [R03.0] INVALID FOR*01/19/2007 More... BENIGN HYPERTENSION [I10] INVALID FOR* More... More... VITAMIN D DEFICIENCY NOS [E55.9] INVALID FOR*07/23/2007 More... Elevated glucose [R73.09] INVALID FOR* Rheumatoid arthritis with positive rheumatoid f*INVALID FOR* Smoking greater than 40 pack years [F17.210] INVALID FOR* Rheumatoid arthritis involving both hands with *INVALID FOR*Disposition: Return if symptoms worsen or fail to improve.Follow-up and Disposition History RecordedLetter TextEncounter Number: [id number] Status:Closed by BIMAL RODRIGUEZ on 10/13/[address] [facility] PROGRESSon 10-13-2017 Protein mass conc HNO ID: [id number] thor: Bimal RodriguezService: (none)Author Type: PhysicianType: Progress NotesFiled: 10/13/2017 9:47 AMNote Text:??[facility] InstituteK[facility] UROLOGYLOCATION: [address] [place], [place] [address]NEW PATIENT HISTORY AND PHYSICAL EXAMPATIENT INFO: Joann Garcia Ida 77 year oldREFERRSTEPHEN Quinteros: Hector CostelloPCP: Hector Costello, [facility] CITYonsultation requested by Hector Costello MD and my finalrecommendations will be communicated back to the requesting physician byway of shared medical record or letter via [place] mail.Chief Complaint: Right Flank Pain/Right UPJOHPIPat is here for evaluation of intermittent flank pain on the rightShe has significant rheumatoid arthritis and is also a heavy smokerCT scan in July demonstrated a right sided hydronephrosis possiblenonobstructive UPJ obstructionRenal scan demonstrated equivalent T1 half with 40% function on the rightAt this time she is feeling better and pain-freeIt is hard for her to delineate between back pain(kidney) or rheumatoidpainNo hematuriaNo stonesNo UTIs1-Duration: 67874-Mqpoheng: kidney3-Severity: N/A4-Quality: Not applicable5-Context: N/A6-Timing: N/A7-Modifying factors: No treatment prior to referral8-Associated signs AND symptoms: no additional symptomsICIQ: NAPATHOLOGY:N/ALAB:WBC (k/uL)Date Value08/07/2017 9.77RBC (m/uL)Date Value08/07/2017 4.56Hemoglobin (g/dL)Date Value08/07/2017 14.5Hematocrit (%)Date Value08/07/2017 43.6MCV (fL)Date Value08/07/2017 95.6MCH (pG)Date Value08/07/2017 31.8MCHC (g/dL)Date Value08/07/2017 33.3RDW-CV (%)Date Value08/07/2017 13.8Platelet Count (k/uL)Date Value08/07/2017 181MPV (fL)Date Value08/07/2017 11.9Neut% (%)Date Value08/07/2017 59.5Lymph% (%)Date Value08/07/2017 31.6Mono% (%)Date Value08/07/2017 8.5Eosin% (%)Date Value08/07/2017 0.1Baso% (%)Date Value08/07/2017 0.3Abs Neut (ANC) (k/uL)Date Value08/07/2017 5.81Abs [place] (k/uL)Date Value08/07/2017 0.83Abs Eosin (k/uL)Date Value08/07/2017 <0.03Abs Baso (k/uL)Date Value08/07/2017 0.03CreatinineDate Value Ref Range Sydypi1008/07/2017 0.92 0.58 - 0.96 mg/dL Final07/13/2017 0.81 0.58 - 0.96 mg/dL Final04/21/2017 0.76 0.58 - 0.96 mg/dL Final04/09/2017 0.81 0.58 - 0.96 mg/dL Final No results found for: PSApH, UrineDate Value Ref Range Ougtua0608/07/2017 6.0 4.5 - 8.0 Final Specific [place], UrDate Value Ref Range Avubhn4808/07/2017 1.017 1.005 - 1.030 Final Glucose, UrineDate Value Ref Range Cnwcdl9708/07/2017 Negative Negative mg/dL Final Bilirubin, UrineDate Value Ref Range Pglnnk3808/07/2017 Negative Negative Final Ketones, UrineDate Value Ref Range Nxwldq8408/07/2017 Negative Negative Final Hemoglobin/B lood,UrDate Value Ref Range Ydhnmb4608/07/2017 Negative Negative Final Protein, UrineDate Value Ref Range Jriznv1608/07/2017 Negative Negative mg/dL Final Urobilinogen Date Value Ref Range Izkpxz2508/07/2017 Normal Normal Final NitritesDate Value Ref Range Hyfwrb9408/07/2017 Negative Negative Final IMAGING: ABOVEReviewed with patientALLERGIES:ALLERGIESN o Known AllergiesMEDICATIONS:Etaner cept (ENBREL) 50 mg/mL (0.98 mL) injection Inject 1 mLsubcutaneously once each week. entire contents of 1 syringe (50mg/1mL).aspirin, enteric coated (ASPIRIN, ENTERIC COATED) 81 mg EC tablet Take 81mg by mouth once daily.methotrexate 2.5 mg tablet Take 8 tablets by mouth once each week.folic acid 1 mg tablet Take 1 tablet by mouth once daily.alendronate (FOSAMAX) 70 mg tablet Take 1 tablet by mouth once each week.TAKE IN THE MORNING WITH A FULL GLASS OF WATER ON AN EMPTY STOMACH. DONOT TAKE ANYTHING ELSE BY MOUTH OR LIE DOWN FOR THE NEXT 30 MINUTES.CALCIUM CARBONATE (CALCIUM 600 ORAL) Take by mouth once daily.cholecalciferol (VITAMIN D) 1,000 unit tab tablet Take 1,000 Units bymouth once daily.Does the patient take any herbal medications?: NoMedication list reviewed and reconciled with patient: YesHISTORIESPAST MEDICAL HISTORYDiagnosis Date- Diverticulosis of colon (without mention of hemorrhage)- Essential hypertension, benign- Osteoporosis, unspecified- Pneumonia, organism unspecified(486) 1994- Rheumatoid arthritis (HCC)- Urinary calculus, unspecified 11/09 passed spontaneousPAST SURGICAL HISTORYProcedure Laterality Date- COLONOSCOP W/ OR W/O BRSH SPEC 10/20/2007 Colonoscopy- REMOVAL GALLBLADDER 1998 CholecystectomyFAMILY HISTORYProblem Relation Age of Onset- Emphysema Mother smoker- Cancer Father liver cancer, bone cancer- Diabetes Father- Diabetes Paternal Grandmother- Diabetes Paternal Aunt- Diabetes Maternal AuntNegative family history: NoSOCIAL HISTORYSocial HistorySubstance Use Topics- Smoking status: Current Every Day Smoker Packs/day: 1.50 Years: 40.00 Types: Cigarettes- Smokeless tobacco: Never Used- Alcohol use NoSmoking Status Reviewed: YesNo question data found.REVIEW OF SYSTEMSGeneral:No weight loss, malaise or fevers., SEE HPIHEENT:Negative for frequent or significant headaches, No changes inhearing or vision, no nose bleeds or other nasal problemsNeck:Negative for lumps, goiter, pain and significant neck swellingRespiratory: Negative for cough, wheezing or shortness of breath.Cardiovascular: Negative for chest pain, leg swelling or palpitations.Gastrointestin al: Negative for abdominal discomfort, blood in stools orblack stools or change in bowel habitsGenitourinary: No history of dysuria, frequency or incontinenceMusculoskeletal : Negative for joint pain or swelling, back pain or musclepain.Skin:Negative for lesions, rash, and itching.Double End Sewer: Negative for abnormal vaginal bleeding, abnormal vaginal dischargeThe remainder of the ROS was negative.PHYSICAL EXAMINATIONBP 118/60 Ht 157.5 cm (5' 2) Wt 45.4 kg (100 lb) BMI 18.29 kg/m?General appearance: Well appearing, alert, in no acute distress andwell-hydrated, well nourishedSkin: Skin color, texture, turgor normal, no suspicious rashes or lesionsHead: Normocephalic, no masses, lesions, tenderness or abnormalitiesNeck: Supple, no adenopathy; thyroid symmetric, normal size, no bruitsLungs: Clear to auscultation, no wheezing or rhonchiHeart: RRR without murmur, gallop, or rubs. No ectopyAbdomen: Normal abdominal exam, Abdomen soft, non-tender. Bowel soundsnormal. No masses, organomegalyExtremities: Extremities normal. No deformities, edema, or skindiscoloration. Good capillary refill.Genitourinary: Exam NOT IndicatedPVR: NAIMPRESSION/PLAN:Intermitt ent - now resolved right flank painShe has a silent right UPJ obstructionRenal scan and CT scan reviewed- at this time she has equivalent T1/2 and40% function on the rightNo intervention needed at this timeShe is a heavy smoker and has rheumatoid arthritisConsider stent in the future if considering repairI will relay this information to El Mary/Gail as neededPatient and her are in agreement with the DO Kaur Iglesias to: Hector Costello MD [facility] Vital Signs Date Time Vital Sign Value Performing Clinician Facility 03-09-2024 14:14-0500 Body temperature 98.1 [degF] Dr. Hector Costello MD Work Phone: [facility] 03-09-2024 14:14-0500 Diastolic blood pressure 84 mm[Hg] Dr. Hector Costello MD Work Phone: [facility] 03-09-2024 14:14-0500 Heart rate 72 /min Dr. Hector Costello MD Work Phone: [facility] 03-09-2024 14:14-0500 Respiratory rate 17 /min Dr. Hector Costello MD Work Phone: [facility] 03-09-2024 14:14-0500 SaO2% (BldA) [Mass fraction] 95 % Dr. Hector Costello MD Work Phone: [facility] 03-09-2024 14:14-0500 Systolic blood pressure 152 mm[Hg] Dr. Hector Costello MD Work Phone: [facility] 02-21-2024 18:31-0500 Blood Pressure Cuff Size DR DAYNE ARIAS MD [facility] 02-21-2024 18:31-[address] DAYNE ARIAS MD [facility] 02-21-2024 18:31-[address] DAYNE ARIAS MD [facility] 02-21-2024 18:31-0500 Body temperature 99.5 [degF] DR DAYNE ARIAS MD [facility] 02-21-2024 18:31-0500 Diastolic Blood Pressure Non-Invasive 49 mm[Hg] DR DAYNE ARIAS MD [facility] 02-21-2024 18:31-0500 Heart rate 90 /min DR DAYNE ARIAS MD [facility] 02-21-2024 18:31-0500 Respiratory rate 18 /min DR DAYNE ARIAS MD [facility] 02-21-2024 18:31-0500 Systolic Blood Pressure Non-Invasive 136 mm[Hg] DR DAYNE ARIAS MD [facility] 12-04-2022 14:27-0400 Body weight 57.02 kg Hector Costello MD Work Phone: [facility] 12-04-2022 14:27-0400 Diastolic blood pressure 70 mm[Hg] Hector Costello MD Work Phone: [facility] 12-04-2022 14:27-0400 Heart rate 80 /min Hector Costello MD Work Phone: [facility] 12-04-2022 14:27-0400 Respiratory rate 16 /min Hector Costello MD Work Phone: [facility] 12-04-2022 14:27-0400 Systolic blood pressure 124 mm[Hg] Hector Costello MD Work Phone: [facility] 11-28-2022 16:54-0400 Body temperature 98.6 [degF] JONATHAN BLACK APRN-SALVAGE GRINDER [facility] 11-28-2022 16:54-0400 Diastolic Blood Pressure Non-Invasive 81 1 JONATHAN BLACK MOVEMENT ASSEMBLY FINAL INSPECTOR-[employer] [facility] 11-28-2022 16:54-0400 Heart rate 71 /min JONATHAN BARAJASFrank MOVEMENT ASSEMBLY FINAL INSPECTOR-[employer] [facility] 11-28-2022 16:54-0400 Reason For Taking VItal Signs JONATHAN BARAJASFrank MOVEMENT ASSEMBLY FINAL INSPECTOR-[employer] [facility] 11-28-2022 16:54-0400 Respiratory rate 18 /min JONATHAN BARAJASFrank MOVEMENT ASSEMBLY FINAL INSPECTOR-[employer] [facility] 11-28-2022 16:54-0400 Systolic Blood Pressure Non-Invasive 114 1 JONATHAN BARAJASN MOVEMENT ASSEMBLY FINAL INSPECTOR-[employer]AGE [employer]ER [facility] 11-28-2022 13:17-0400 Body temperature 97.34 [degF] JONATHAN BARAJASN MOVEMENT ASSEMBLY FINAL INSPECTOR-[employer]ER [facility] 11-28-2022 13:17-0400 Diastolic Blood Pressure Non-Invasive 84 1 JONATHAN BLACK MOVEMENT ASSEMBLY FINAL INSPECTOR-[employer] [facility] 11-28-2022 13:17-0400 Heart rate 72 /min JONATHAN BARAJASFrank MOVEMENT ASSEMBLY FINAL INSPECTOR-[employer] [facility] 11-28-2022 13:17-0400 Respiratory rate 18 /min JONATHAN BARAJASN MOVEMENT ASSEMBLY FINAL INSPECTOR-[employer]ER [facility] 11-28-2022 13:17-0400 Systolic Blood Pressure Non-Invasive 142 1 JONATHANNITIN BARAJASN MOVEMENT ASSEMBLY FINAL INSPECTOR-[employer] [facility] 11-28-2022 06:00-0400 Body temperature 98.06 [degF] JONATHANNITIN MALDONADOMARYANN MOVEMENT ASSEMBLY FINAL INSPECTOR-[employer]ER [facility] 11-28-2022 06:00-0400 Diastolic Blood Pressure Non-Invasive 78 1 JONATHAN BARAJASFrank MOVEMENT ASSEMBLY FINAL INSPECTOR-[employer] [facility] 11-28-2022 06:00-0400 Heart rate 80 /min JONTAHAN BARAJASFrank MOVEMENT ASSEMBLY FINAL INSPECTOR-[employer] [facility] 11-28-2022 06:00-0400 Systolic Blood Pressure Non-Invasive 148 1 JONATHAN BARAJASFrank MOVEMENT ASSEMBLY FINAL INSPECTOR-[employer]ER [facility] 11-28-2022 04:30-0400 Heart rate 72 /min JONATHAN MALDONADOHARINI MOVEMENT ASSEMBLY FINAL INSPECTOR-[employer]ER [facility] 11-27-2022 23:35-0400 Heart rate 69 /min JONATHAN BARAJASN MOVEMENT ASSEMBLY FINAL INSPECTOR-[employer] [facility] 11-27-2022 21:15-0400 Heart rate 92 /min JONATHAN BARAJASFrank MOVEMENT ASSEMBLY FINAL INSPECTOR-[employer] [facility] 11-27-2022 21:11-0400 Body height 155 cm JONATHAN BARAJASFrank MOVEMENT ASSEMBLY FINAL INSPECTOR-[employer]AGE [employer]ER [facility] 11-27-2022 21:11-0400 Body weight 56.7 kg JONATHAN BARAJASFrank MOVEMENT ASSEMBLY FINAL INSPECTOR-SALVAGE GRINDER [facility] 11-27-2022 21:11-0400 Body weight 23.6 kg/m2 JONATHAN BARAJASFrank MOVEMENT ASSEMBLY FINAL INSPECTOR-SALVAGE GRINDER [facility] 11-27-2022 19:15-0400 Blood Pressure Cuff Size JONATHANNITIN MALDONADOHARINI MOVEMENT ASSEMBLY FINAL INSPECTOR-SALVAGE GRINDER [facility] 11-27-2022 19:15-0400 Blood Pressure Location JONATHANNITIN MALDONADOHARINI MOVEMENT ASSEMBLY FINAL INSPECTOR-SALVAGE GRINDER [facility] 11-27-2022 19:15-0400 Blood Pressure Method JONATHAN BLACK MOVEMENT ASSEMBLY FINAL INSPECTOR-SALVAGE GRINDER [facility] 11-27-2022 17:05-0400 Blood Pressure Cuff Size JONATHAN BLACK MOVEMENT ASSEMBLY FINAL INSPECTOR-SALVAGE GRINDER [facility] 11-27-2022 17:05-0400 Blood Pressure Location JONATHAN BLACK MOVEMENT ASSEMBLY FINAL INSPECTOR-SALVAGE GRINDER [facility] 11-27-2022 17:05-0400 Blood Pressure Method JONATHAN BLACK MOVEMENT ASSEMBLY FINAL INSPECTOR-SALVAGE GRINDER [facility] 11-27-2022 17:05-0400 Body weight 61.5 kg JONATHAN BLACK MOVEMENT ASSEMBLY FINAL INSPECTOR-SALVAGE GRINDER [facility] 11-27-2022 17:05-0400 Heart rate 92 /min JONATHAN BLACK MOVEMENT ASSEMBLY FINAL INSPECTOR-SALVAGE GRINDER [facility] 10-14-2022 10:14-0400 Body weight 58.06 kg Patricia Kamar MOVEMENT ASSEMBLY FINAL INSPECTOR.SALVAGE GRINDER Work Phone: [facility] 10-14-2022 10:14-0400 Diastolic blood pressure 80 mm[Hg] Patricia Spearshof MOVEMENT ASSEMBLY FINAL INSPECTOR.SALVAGE GRINDER Work Phone: [facility] 10-14-2022 10:14-0400 Heart rate 86 /min Patricia Reganhof MOVEMENT ASSEMBLY FINAL INSPECTOR.SALVAGE GRINDER Work Phone: [facility] 10-14-2022 10:14-0400 Respiratory rate 18 /min Patricia Spearshof MOVEMENT ASSEMBLY FINAL INSPECTOR.SALVAGE GRINDER Work Phone: [facility] 10-14-2022 10:14-0400 SaO2% (BldA) [Mass fraction] 98 % Patriciamarcella Spearshof MOVEMENT ASSEMBLY FINAL INSPECTOR.SALVAGE GRINDER Work Phone: [facility] 10-14-2022 10:14-0400 Systolic blood pressure 130 mm[Hg] Patricia Kamar BOOSALVAGE GRINDER Work Phone: [facility] 09-07-2022 18:25-0400 Body temperature 100.76 [degF] DR KAYLA ABAD DO [facility] 09-07-2022 18:25-0400 Diastolic Blood Pressure Non-Invasive [address] KAYLA ABAD DO [facility] 09-07-2022 18:25-0400 Heart rate 92 /min DR KAYLA ABAD DO [facility] 09-07-2022 18:25-0400 Respiratory rate 16 /min DR KAYLA ABAD DO [facility] 09-07-2022 18:25-0400 Systolic Blood Pressure Non-Invasive [address] KAYLA ABAD DO [facility] 09-07-2022 16:50-0400 Diastolic Blood Pressure Non-Invasive [address] KAYLA ABAD DO [facility] 09-07-2022 16:50-0400 Heart rate 90 /min DR KAYLA ABAD DO [facility] 09-07-2022 16:50-0400 Reason For Taking VItal Signs DR KAYLA ABAD DO [facility] 09-07-2022 16:50-0400 Respiratory rate 20 /min DR KAYLA ABAD DO [facility] 09-07-2022 16:50-0400 Systolic Blood Pressure Non-Invasive [address] KAYLA ABAD DO [facility] 09-07-2022 16:38-0400 Body temperature 101.84 [degF] DR GARZA KRUNALKAYLEY DO [facility] 09-07-2022 16:38-0400 Diastolic Blood Pressure Non-Invasive [address] GARZA KRUNALKAYLEY DO [facility] 09-07-2022 16:38-0400 Heart rate 86 /min DR GARZA KRUNALKAYLEY DO [facility] 09-07-2022 16:38-0400 Respiratory rate 24 /min DR GARZA KRUNALKAYLEY DO [facility] 09-07-2022 16:38-0400 Systolic Blood Pressure Non-Invasive [address] GARZA KRUNALKAYLEY DO [facility] 09-07-2022 15:23-0400 Body temperature 101.66 [degF] DR GARZA KRUNALKAYLEY DO [facility] 11-02-2021 12:40-0400 Body temperature 97.7 [degF] MASON HOLBROOK MOVEMENT ASSEMBLY FINAL INSPECTOR-SALVAGE GRINDER [facility] 11-02-2021 12:40-0400 Diastolic blood pressure 66 mm[Hg] MASON HOLBROOK MOVEMENT ASSEMBLY FINAL INSPECTOR-SALVAGE GRINDER [facility] 11-02-2021 12:40-0400 Heart rate 76 /min MASON HOLBROOK MOVEMENT ASSEMBLY FINAL INSPECTOR-SALVAGE GRINDER [facility] 11-02-2021 12:40-0400 Respiratory rate 16 /min MASON HOLBROOK MOVEMENT ASSEMBLY FINAL INSPECTOR-SALVAGE GRINDER [facility] 11-02-2021 12:40-0400 Systolic blood pressure 132 mm[Hg] MASON HOLBROOK MOVEMENT ASSEMBLY FINAL INSPECTOR-SALVAGE GRINDER [facility] 11-02-2021 09:33-0400 Body temperature 97.34 [degF] MASON PHILLIPSITH MOVEMENT ASSEMBLY FINAL INSPECTOR-SALVAGE GRINDER [facility] 11-02-2021 09:33-0400 Diastolic blood pressure 56 mm[Hg] MASON PHILLIPSITH MOVEMENT ASSEMBLY FINAL INSPECTOR-SALVAGE GRINDER [facility] 11-02-2021 09:33-0400 Heart rate 72 /min MASON PHILLISPITH MOVEMENT ASSEMBLY FINAL INSPECTOR-SALVAGE GRINDER [facility] 11-02-2021 09:33-0400 Respiratory rate 16 /min MASON PHILLIPSITH MOVEMENT ASSEMBLY FINAL INSPECTOR-SALVAGE GRINDER [facility] 11-02-2021 09:33-0400 Systolic blood pressure 121 mm[Hg] MASON PHILLIPSITH MOVEMENT ASSEMBLY FINAL INSPECTOR-SALVAGE GRINDER [facility] 11-02-2021 04:55-0400 Body temperature 97.88 [degF] MASON HOLBROOK MOVEMENT ASSEMBLY FINAL INSPECTOR-SALVAGE GRINDER [facility] 11-02-2021 04:55-0400 Diastolic blood pressure 66 mm[Hg] MASON PHILLIPSITH MOVEMENT ASSEMBLY FINAL INSPECTOR-SALVAGE GRINDER [facility] 11-02-2021 04:55-0400 Heart rate 81 /min MASON PHILLIPSITH MOVEMENT ASSEMBLY FINAL INSPECTOR-SALVAGE GRINDER [facility] 11-02-2021 04:55-0400 Mean blood pressure 80 mm[Hg] MASON PHILLIPSITH MOVEMENT ASSEMBLY FINAL INSPECTOR-SALVAGE GRINDER [facility] 11-02-2021 04:55-0400 Respiratory rate 16 /min MASON PHILLIPSITH MOVEMENT ASSEMBLY FINAL INSPECTOR-SALVAGE GRINDER [facility] 11-02-2021 04:55-0400 Systolic blood pressure 109 mm[Hg] MASON PHILLIPSITH MOVEMENT ASSEMBLY FINAL INSPECTOR-SALVAGE GRINDER [facility] 11-02-2021 00:29-0400 Body height 162.6 cm MASON FOITH MOVEMENT ASSEMBLY FINAL INSPECTOR-SALVAGE GRINDER [facility] 11-02-2021 00:29-0400 Body weight 56.8 kg MASON FOITH MOVEMENT ASSEMBLY FINAL INSPECTOR-SALVAGE GRINDER [facility] 11-02-2021 00:29-0400 Body weight 21.48 kg/m2 MASON FOITH MOVEMENT ASSEMBLY FINAL INSPECTOR-SALVAGE GRINDER [facility] 11-02-2021 00:27-0400 Body weight 56.8 kg MASON FOITH MOVEMENT ASSEMBLY FINAL INSPECTOR-SALVAGE GRINDER [facility] 11-01-2021 23:45-0400 Heart rate 80 /min MASON FOITH MOVEMENT ASSEMBLY FINAL INSPECTOR-SALVAGE GRINDER [facility] 11-01-2021 23:03-0400 Heart rate 76 /min MASON FOITH MOVEMENT ASSEMBLY FINAL INSPECTOR-SALVAGE GRINDER [facility] 11-01-2021 18:23-0400 Body height 162.6 cm MASON FOITH MOVEMENT ASSEMBLY FINAL INSPECTOR-SALVAGE GRINDER [facility] 11-01-2021 18:23-0400 Body weight 63.6 kg MASON FOITH MOVEMENT ASSEMBLY FINAL INSPECTOR-SALVAGE GRINDER [facility] 03-13-2021 10:00-0500 Heart rate 79 /min Dr. Hector Costello Work Phone: [facility] Work Phone: 03-13-2021 08:44-0500 Body temperature 97.9 [degF] Dr. Hector Costello Work Phone: [facility] Work Phone: 03-13-2021 08:44-0500 Diastolic blood pressure 78 mm[Hg] Dr. Hector Costello Work Phone: [facility] Work Phone: 03-13-2021 08:44-0500 Respiratory rate 18 /min Dr. Hector Costello Work Phone: [facility] Work Phone: 03-13-2021 08:44-0500 SaO2% (BldA) [Mass fraction] 92 % Dr. Hector Costello Work Phone: [facility] Work Phone: 03-13-2021 08:44-0500 Systolic blood pressure 171 mm[Hg] Dr. Hector Costello Work Phone: [facility] Work Phone: 03-13-2021 04:02-0500 Body weight 54.[address] Hector Costello Work Phone: [facility] Work Phone: 03-12-2021 10:02-0500 Body height [address] Hector Costello Work Phone: [facility] Work Phone: 03-11-2021 17:26-0500 Body mass index (BMI) [Ratio] 21.9 kg/m2 Dr. Hector Costello Work Phone: [facility] Work Phone: 12-06-2020 08:37-0400 Body temperature 97.7 [degF] MASON HOLBROOK APRN-SALVAGE GRINDER [facility] 12-06-2020 08:37-0400 Diastolic blood pressure 86 mm[Hg] MASON HOLBROOK APRN-SALVAGE GRINDER [facility] 12-06-2020 08:37-0400 Heart rate 63 /min MASON HOLBROOK MOVEMENT ASSEMBLY FINAL INSPECTOR-SALVAGE GRINDER [facility] 12-06-2020 08:37-0400 Reason For Taking VItal Signs MASON HOLBROOK MOVEMENT ASSEMBLY FINAL INSPECTOR-SALVAGE GRINDER [facility] 12-06-2020 08:37-0400 Respiratory rate 20 /min MASON HOLBROOK MOVEMENT ASSEMBLY FINAL INSPECTOR-SALVAGE GRINDER [facility] 12-06-2020 08:37-0400 Systolic blood pressure 150 mm[Hg] MASON HOLBROOK MOVEMENT ASSEMBLY FINAL INSPECTOR-SALVAGE GRINDER [facility] 12-06-2020 03:28-0400 Body temperature 96.44 [degF] MASON PHILLIPSITH MOVEMENT ASSEMBLY FINAL INSPECTOR-SALVAGE GRINDER [facility] 12-06-2020 03:28-0400 Diastolic blood pressure 84 mm[Hg] MASON PHILLIPSITH MOVEMENT ASSEMBLY FINAL INSPECTOR-SALVAGE GRINDER [facility] 12-06-2020 03:28-0400 Heart rate 65 /min MASON HOLBROOK MOVEMENT ASSEMBLY FINAL INSPECTOR-SALVAGE GRINDER [facility] 12-06-2020 03:28-0400 Respiratory rate 20 /min MASON HOLBROOK MOVEMENT ASSEMBLY FINAL INSPECTOR-SALVAGE GRINDER [facility] 12-06-2020 03:28-0400 Systolic blood pressure 156 mm[Hg] MASON PHILLIPSITH MOVEMENT ASSEMBLY FINAL INSPECTOR-SALVAGE GRINDER [facility] 12-06-2020 00:09-0400 Body temperature 98.6 [degF] MASON FOITH MOVEMENT ASSEMBLY FINAL INSPECTOR-SALVAGE GRINDER [facility] 12-06-2020 00:09-0400 Diastolic blood pressure 70 mm[Hg] MASON ALANITH MOVEMENT ASSEMBLY FINAL INSPECTOR-SALVAGE GRINDER [facility] 12-06-2020 00:09-0400 Heart rate 63 /min MASONCARLOS PHILLIPSITH MOVEMENT ASSEMBLY FINAL INSPECTOR-SALVAGE GRINDER [facility] 12-06-2020 00:09-0400 Respiratory rate 20 /min MASON PHILLIPSITH MOVEMENT ASSEMBLY FINAL INSPECTOR-SALVAGE GRINDER [facility] 12-06-2020 00:09-0400 Systolic blood pressure 150 mm[Hg] MASON PHILLIPSITH MOVEMENT ASSEMBLY FINAL INSPECTOR-SALVAGE GRINDER [facility] 12-05-2020 19:49-0400 Heart rate 76 /min MASON ALANITH MOVEMENT ASSEMBLY FINAL INSPECTOR-SALVAGE GRINDER [facility] 12-05-2020 19:03-0400 Heart rate 89 /min MASON ALANITH MOVEMENT ASSEMBLY FINAL INSPECTOR-SALVAGE GRINDER [facility] 12-05-2020 15:41-0400 Heart rate 90 /min MASON FOITH MOVEMENT ASSEMBLY FINAL INSPECTOR-SALVAGE GRINDER [facility] 12-05-2020 15:41-0400 Mean blood pressure 81 mm[Hg] MASON ALANITH MOVEMENT ASSEMBLY FINAL INSPECTOR-SALVAGE GRINDER [facility] 12-05-2020 15:41-0400 Reason For Taking VItal Signs MASON PHILLIPSRUTH MOVEMENT ASSEMBLY FINAL INSPECTOR-SALVAGE GRINDER [facility] 12-05-2020 08:20-0400 Heart rate 74 /min MASON PHILLIPSRUTH MOVEMENT ASSEMBLY FINAL INSPECTOR-SALVAGE GRINDER [facility] 12-05-2020 08:20-0400 Mean blood pressure 105 mm[Hg] MASONLynsey HOLBROOK MOVEMENT ASSEMBLY FINAL INSPECTOR-SALVAGE GRINDER [facility] 12-05-2020 08:20-0400 Reason For Taking VItal Signs MASON PHILLIPSRUTH MOVEMENT ASSEMBLY FINAL INSPECTOR-SALVAGE GRINDER [facility] 12-04-2020 18:49-0400 Mean blood pressure 106 mm[Hg] MASON SHERON MOVEMENT ASSEMBLY FINAL INSPECTOR-SALVAGE GRINDER [facility] 12-03-2020 23:53-0400 Body height 157.5 cm MASON SHERON MOVEMENT ASSEMBLY FINAL INSPECTOR-SALVAGE GRINDER [facility] 12-03-2020 23:53-0400 Body weight 51.8 kg MASON SHERON MOVEMENT ASSEMBLY FINAL INSPECTOR-SALVAGE GRINDER [facility] 12-03-2020 23:53-0400 Body weight 20.88 kg/m2 MASON SHERON MOVEMENT ASSEMBLY FINAL INSPECTOR-SALVAGE GRINDER [facility] 12-03-2020 20:30-0400 Heart rate 86 /min MASON SHERON MOVEMENT ASSEMBLY FINAL INSPECTOR-SALVAGE GRINDER [facility] Encounters Encounter Date Encounter Type Care Provider Facility Start: 08-16-2024 End: 08-16-[address] Tobias Tobar DO Work Phone: -[facility] [place] Start: 08-16-2024 End: 08-16-[address] Nelly Goff MD -[facility] [place] Work Phone: Start: 08-16-2024 End: 08-16-2024 ambulatory [facility] Facility:[facility] Start: 05-26-2024 End: 05-26-[address] Hector Costello MD Work Phone: [facility] Work Phone: Start: 05-26-2024 End: 05-26-[address] Nelly Goff MD -Labor[facility], [place] Work Phone: Start: 05-26-2024 End: 05-26-2024 [facility] Start: 04-18-2024 End: 04-18-[address] Hector Costello MD Work Phone: [facility] Work Phone: Start: 04-18-2024 End: 04-18-[address] Zeny Snyder MD -Radiology, [place] Work Phone: Start: 04-18-2024 End: 04-18-[address] TOBIAS TOBAR DO Facility:[facility] Start: 04-18-2024 End: 04-18-2024 ambulatory Tobias Tobar Facility:[facility] Start: 04-16-2024 End: 04-16-[address] Hector Costello MD Work Phone: [facility] Work Phone: Start: 04-16-2024 End: 04-16-[address] Zeny Snyder MD -[facility] Work Phone: Start: 04-16-2024 End: 04-16-2024 ambulatory Tobias Amadou Facility:[facility] Start: 03-11-2024 End: 03-11-[address] Nelly Goff MD -Laboratory, [place] Work Phone: Start: 03-11-2024 End: 03-11-2024 ambulatory [facility] Facility:[facility] Start: 03-09-2024 End: 03-09-2024 ambulatory Gera MAR Facility:[facility] [place] [facility] Start: 03-09-2024 End: 03-09-2024 Patient encounter procedure Gera MAR [facility] Work Phone: Start: 03-09-2024 End: 03-09-2024 ambulatory [facility] Facility:[facility] Start: 02-21-2024 End: 02-21-2024 Emergency department patient visit DR DAYNE ARIAS MD [facility] Start: 02-05-2024 End: 02-05-[address] Nelly Goff MD -Laboratory, [place] Work Phone: Start: 02-05-2024 End: 02-05-2024 ambulatory [facility] Facility:[facility] Start: 01-28-2024 End: 01-29-2024 Telephone encounter Hector Costello MD Work Phone: [facility] [place] Comment on above: [employer] Medicare Form s Start: 11-06-2023 End: 11-06-2023 ambulatory [facility] Facility:[facility] Start: 05-22-2023 End: 05-22-2023 ambulatory [facility] Work Phone: Start: 05-22-2023 End: 05-22-2023 Patient encounter procedure [facility], [place] Work Phone: Start: 02-25-2023 End: 02-25-2023 ambulatory [facility] Work Phone: Start: 02-25-2023 End: 02-25-[address] [facility] Work Phone: Start: 12-11-2022 End: 12-11-2022 ambulatory [facility] Work Phone: Start: 12-11-2022 End: 12-11-[address] [facility] Work Phone: Start: 12-04-2022 End: 12-04-2022 Patient encounter procedure Hector Costello MD Work Phone: [facility] Comment on above: Hospital discharge f ollow-up (Primary Dx); Renal insufficiency; COVID-19; Tobacco use disorder; Rheumatoid arthritis involving both hands with positive rheumatoid factor ([facility]); Other emphysema ([facility]); Peripheral vascular disease, unspecified ([facility]) Start: 11-27-2022 End: 11-28-[address] HECTOR COSTELLO MD Facility:[facility] Start: 11-27-2022 End: 11-28-2022 Observation JONATHAN BLACK MOVEMENT ASSEMBLY FINAL INSPECTOR-SALVAGE GRINDER [facility] Start: 10-14-2022 End: 10-14-2022 Patient encounter procedure Patricia Kamar MOVEMENT ASSEMBLY FINAL INSPECTOR.SALVAGE GRINDER Work Phone: [facility] Comment on above: Hospital discharge f ollow-up (Primary Dx); Acute cystitis without hematuria Start: 10-01-2022 ambulatory Kianna armas [employer] Comment on above: Population Health Na vigation Outreach ([facility] Gaps) Start: 09-12-2022 End: 09-12-2022 ambulatory [facility] Work Phone: Start: 09-12-2022 End: 09-12-[address] [facility] Work Phone: Start: 09-07-2022 End: 09-07-2022 Emergency department patient visit DR KAYLA ABAD DO Facility:[facility] Start: 09-07-2022 End: 09-07-2022 Emergency department patient visit DR KAYLA ABAD DO [facility] Start: 06-18-2022 End: 06-18-2022 ambulatory [facility] Work Phone: Start: 06-18-2022 End: 06-18-[address] [facility] Start: 05-16-2022 End: 05-16-2022 ambulatory [facility] Work Phone: Start: 05-16-2022 End: 05-16-[address] [facility] Start: 03-28-2022 End: 03-28-[address] [facility] Start: 01-21-2022 End: 01-21-2022 ambulatory [facility] Work Phone: Start: 01-21-2022 End: 01-21-[address] [facility] Start: 12-31-2021 End: 12-31-2021 ambulatory [facility] Work Phone: Start: 12-31-2021 End: 12-31-[address] [facility] Start: 11-01-2021 End: 11-02-2021 Observation MASON VALDEZSALVAGE GRINDER [facility] Start: 10-03-2021 End: 10-03-[address] [facility] Start: 07-03-2021 End: 07-03-[address] Hector Costello Work Phone: [facility] Start: 04-03-2021 End: 04-03-[address] Hector Costello Work Phone: [facility] Start: 03-13-2021 Non-patient / Non-visit Dr. Nic Costello Work Phone: [facility] Start: 03-11-2021 End: 03-13-2021 Evaluation and management of inpatient Dr. Hector Costello Work Phone: [facility]-Pro[facility] Unit Start: 12-03-2020 End: 12-06-2020 Observation TRACI CELIS MOVEMENT ASSEMBLY FINAL INSPECTOR-SALVAGE GRINDER [facility] Start: 10-13-2017 End: 10-13-2017 Patient encounter BIMAL RODRIGUEZ [facility] Procedures Date Procedure Procedure Detail Performing Clinician Start: 04-18-2024 X-ray of lumbar spin e, two or three views Dr. Hector Costello MD Work Phone: Start: 04-16-2024 MRI of thoracic spine Sun Costello MD Work Phone: Start: 03-09-2024 X-ray of lumbar spin e, two or three views Dr. Hector Costello MD Work Phone: Start: 03-09-2024 X-ray of thoracic sp ine, three views Dr. Hector Costello MD Work Phone: Start: 03-12-2021 Respiratory Panel (PCR) Dr. Hector Costello Work Phone: Start: 03-11-2021 MRI of brain without contrast Dr. Hector Costello Work Phone: Start: 03-11-2021 Bacteria identified in Blood by Culture Dr. Hector Costello Work Phone: Start: 03-11-[address] Hector Costello Work Phone: Start: 03-11-2021 Plain chest X-ray Dr. Valeria Costello Work Phone: Start: 03-11-2021 CT of head without contrast Dr. Hector Costello Work Phone: Cholecystectomy MASON HOLBROOK MOVEMENT ASSEMBLY FINAL INSPECTOR-SALVAGE GRINDER Plan of Treatment Date Care Activity Detail Author Start: 09-02-2026 Urine microalbumin profile [facility] Start: 12-04-2025 Diabetes Screening Diabetes Screenal g [facility] Start: 04-01-2024 End: 04-01-2024 Patient encounter procedure 04/01/2024 10:00 AM EST Office Visit [facility] [address] [place], [place] [id number] Hector Costello MD [address] [place], [place] [id number] medicare wellness [facility] Comment on above: medicare wellness Start: 03-09-2024 Patient referral [facility] Work Phone: Start: 12-05-2023 Annual PCP Team [employer] jimmy Disease Visit Annual PCP Team Chronic Disease Visit [facility] Start: 12-05-2023 BP Controlled (<130/80) BP Con trolled (<130/80) [facility] Start: 12-05-2023 Covid-19 Vaccine (#1) Covid-19 Vacci ne (#1) [facility] Comment on above: Postponed from 01/09 (Declined at this time) Start: 10-15-2023 ANNUAL PCP TEAM 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 JIMMY DISEASE VISIT ANNUAL PCP TEAM CHRONIC DISEASE VISIT [facility] Start: 10-11-2023 Influenza vaccination Influenza Vacc ine (#1) [facility] Start: 08-09-2023 Influenza vaccination Influenza Vacc ine (#1) [facility] Comment on above: Postponed from 10/10 (Declined at this time) Start: 02-09-2023 Advance Directive Discussion Advance Directive Discussion [facility] Start: 12-04-2022 End: 03-05-2023 Basic metabolic 2000 panel - Serum or Plasma [facility] Work Phone: Comment on above: Expected: 12/04/2022 , Expires: 03/05/2023 Start: 10-10-2022 Influenza vaccination INFLUENZA (#1) [facility] Start: 02-21-2022 DIABETES SCREEN DIABETES SCREEN [facility] Start: 02-21-2022 Diabetes Screening Diabetes Screenin g [facility] Start: 02-09-2022 ADVANCE DIRECTIVE DISCUSSION ADVANCE DIRECTIVE DISCUSSION [facility] Start: 02-09-2022 DEPRESSION ASSESSMENT DEPRESSION ASS ESSMENT [facility] Start: 12-27-2021 ANNUAL PCP TEAM 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 JIMMY DISEASE VISIT ANNUAL PCP TEAM CHRONIC DISEASE VISIT [facility] Start: 2017 RSV Vaccine (1 - 1-d ose 75+ series) RSV Vaccine (1 - 1-dose 75+ series) [facility] Start: 09-11-2016 Screening for osteoporosis Bone Density Screening [facility] Start: 10-09-2009 Screening for malign ant neoplasm of cervix Cervical Cancer Screening [facility] Start: 2002 RSV Vaccine (1 - 1-d ose 60+ series) RSV Vaccine (1 - 1-dose 60+ series) [facility] Start: 1961 SHINGRIX VACCINE (1 of 2) SHINGRIX VACCINE (1 of 2) [facility] Start: 01-10-1960 Anxiety Screening Anxiety Screening [facility] Start: 01-10-1960 BP CONTROLLED (<130/80) BP CON TROLLED (<130/80) [facility] Start: 01-10-1960 Depression Screening Depression Scre ening [facility] Start: 01-10-1960 SPIROMETRY SPIROMETRY [facility] Start: 1947 COVID-19 VACCINE (#1) COVID-19 VACCI NE (#1) [facility] Patient referral [facility] Work Phone: Immunizations Immunization Date Immunization Notes Care Provider Fa caesar 10-17-2017 influenza virus vacc ine, unspecified formulation Hector Costello MD Work Phone: [facility] 09-02-2016 tetanus and diphther ia toxoids, adsorbed, preservative free, for adult use (5 Lf of tetanus toxoid and 2 Lf of diphtheria toxoid) [employer] FINAL INSPECTOR-SALVAGE GRINDER [facility] 07-05-2015 pneumococcal conjuga te vaccine, 13 valent [employer]ON [employer] FINAL INSPECTOR-SALVAGE GRINDER [facility] 01-03-2014 pneumococcal polysaccharide vaccine, 23 valent [employer]ON [employer] FINAL INSPECTOR-SALVAGE GRINDER [facility] 11-24-2012 influenza virus vacc ine, unspecified formulation [facility] 11-12-2010 influenza virus vacc ine, unspecified formulation [facility] 11-20-2009 influenza virus vacc ine, unspecified formulation [facility] 11-17-2008 influenza virus vacc ine, unspecified formulation [facility] 12-21-2007 influenza virus vacc ine, unspecified formulation [facility] Work Phone: 01-19-2007 influenza virus vacc ine, unspecified formulation [facility] Work Phone: 07-27-2006 tetanus toxoid, redu beba diphtheria toxoid, and acellular pertussis vaccine, adsorbed [facility] Work Phone: 11-25-2000 pneumococcal polysaccharide vaccine, 23 valent [facility] Payers Date Payer Category Payer Unknown [id number] 2024 Unknown [id number] 2023 Private Health Insurance [id number] 2023 Self-pay [id number] 2021 Medicare [id number] 2006 Medicare [id number] 1940 Unknown [id number] 2.16.8 [id number] 1942 Unknown [id number] 2.16.8 [id number] 1942 Unknown [id number] 2.16.8 [id number] 1940 Unknown [id number] 2.16.8 [id number] Medicare [id number] Medicare [id number] Private Health Insurance [id number] Unknown [id number] Unknown [id number] 2.16.8 [id number] Unknown [id number] 2.16.8 [id number] Unknown [id number] 2.16.8 [id number] Unknown [id number] 2.16.8 [id number] Unknown [id number] 2.16.8 [id number] Unknown [id number] 2.16.8 [id number] Unknown [id number] 2.16.8 [id number] Unknown [id number] 2.16.8 [id number] Unknown [id number] 2.16.8 [id number] Social History Date Type Detail Facility Start: 12-03-2020 Heavy tobacco smoker (finding) [facility] Sex Assigned At [facility] Start: 03-12-2021 End: 03-12-2021 Tobacco smoking status NHIS Unknown if ever smoked [facility] Start: 04-14-2017 None [facility] Start: 04-14-2017 Spouse/ Signif icant Other [facility] Start: 1940 Sex Assigned At Female W [facility] Start: 10-29-2018 End: 03-12-2021 Tobacco smoking status NHIS Smokes tobacco daily [facility] History of tobacco use Cigarette Smoker C [facility] Start: 10-29-2018 End: 10-14-2022 Cigarettes smoked current (pack per day) - Reported 1.5 [facility] Start: 10-29-2018 End: 10-14-2022 Tobacco use and exposure Smokeless tobacco non-user [facility] Start: 12-27-2020 End: 12-04-2022 Alcohol intake Current non-drinker of alcohol (finding) [facility] Start: 12-27-2020 End: 10-14-2022 Tobacco use panel [facility] Adult Depression Screening Assessment 0 [facility] Start: 10-29-2018 End: 10-14-2022 Tobacco Comment No ready to quit, likes to smoke [facility] Start: 1940 Sex Assigned At Not on file C [facility] Start: 07-29-2014 End: 06-01-2024 Sex Female (finding) [facility] Functional Status Date Assessment Result Facility 02-21-2024 Functional Status Ambulation in Díaz, Ambulation in Room [facility] 11-28-2022 Functional Status Door open, Room check performed [facility] 11-28-2022 Functional Status [facility] 11-28-2022 Functional Status [facility] 11-28-2022 Functional Status Mobile home [facility] 11-28-2022 Functional Status 7pm-7am [facility] 11-27-2022 Functional Status Sensory Deficits None A [facility] 09-07-2022 Functional Status Minimum assistance [facility] 09-07-2022 Functional Status Standard Safet y ID band on, Call device within reach, Bed in low position, Wheels locked, Bedside Cart Locked, Safety level maintained [facility] 09-07-2022 Functional Status [facility] 11-02-2021 Functional Status Room check performed [facility] 11-02-2021 Functional Status pt often closi ng eyes and required extended time to answer questions, follow commands. [facility] 11-02-2021 Functional Status [facility] 11-02-2021 Functional Status [facility] 11-02-2021 Functional Status Sensory Deficits None [facility] 03-13-2021 Functional status Ambulates [facility] Work Phone: Mental Status Date Assessment Result Facility 02-21-2024 Mental Status Orientation Oriented x 4 [facility] 11-28-2022 [facility] 11-27-2022 Mental Status [facility] 11-27-2022 Mental Status [facility] 09-07-2022 Mental Status Orientation Oriented x 4 [facility] 09-07-2022 Mental Status [facility] 11-02-2021 Mental Status Orientation Asse ssment Oriented x 4 [facility] 11-02-2021 Mental Status Oriented x 4 [facility] 11-01-2021 Mental Status [facility] 11-01-2021 Mental Status [facility] 03-13-2021 Cognitive function Voice/Name [facility] Work Phone: Clinical Notes 01-19-2007 to 04-19-2024 Note Date & Type Note Facility 04-19-2024 Radiology Diagnostic study note [facility] Services [address] [place] [address] Lumbar Spine 2 or 3 Views MR#: [id number] Acct: [id number] Name: JOANN SANCHEZ Rep #: [id number] : 1940 F 84 From: Rina Burden MD PCP: Dr. Tobias Tobar DO Status: REG C LI Study:Lumbar Spine 2 or 3 Views Date of Exam: 04/18/24 Exam# [id number] Ordering Dr: Jose Snyder MD EXAM: XR Lumbosacral Spine, 2 or 3 Views CLINICAL INDICATION: TECHNIQUE: Frontal and lateral views of the lumbar spine and sacrum. COMPARISON: No relevant prior studies available. FINDINGS: VERTEBRAE: Moderate facet arthropathy of L4-S1. No acute fracture. Normal alignment. SACRUM/COCCYX: Unremarkable as visualized. No acute fracture. DISC SPACES: No acute findings. No significant narrowing. SOFT TISSUES: Unremarkable. RAD/Lumbar Spine 2 or 3 Views IMPRESSION: Degenerative changes as above. Reading Location: [facility] CC: Dr. Zeny Snyder MD; Dr. Tobias Tobar DO ~ Cruise Director: Signed [facility] 03-09-2024 Evaluation note Diagnosis Onset Date Resolution Acute lumbar myofascial strain acute March 09 2:11pm Compression fracture of T10 vertebra acute March 09 2:11pm [facility] Work Phone: 1(419) 342-513101-12-2025 Hospital Discharge instructions Patient Education 02/21/2024 20:13:13 Weakness (Uncertain Cause) Weakness with Uncertain Cause Based on your exam today, the exact cause of your weakness is not certain. But your weakness does not seem to be a sign of a serious illness at this time. Keep an eye on your symptoms and get medicaladvice as instructed below. Home care Rest at home today. Don't over-exert yourself. Take any medicine as prescribed. For the next few days, drink extra fluids (unless your healthcare provider wants you to restrict fluids for other reasons). Don't skip meals. Unless otherwise directed, continue to take any prescription medicines. Contact your healthcare provider if you have any questions or concerns. Follow-up care Follow up with your healthcare provider, or as advised. When to seek medical advice Call your healthcare provider right away for any of the following: Symptoms get worse Symptoms don't start getting better within 2 days Fever of 100.4 F (38 C) or higher, or as directed by your healthcare provider Call 911 Call 911 for any of these: Chest, arm, neck, jaw, or upper back pain Trouble breathing Numbness or weakness of the face, one arm, or one leg Slurred speech, confusion, or trouble speaking, walking, or seeing Blood in vomit or stool (black or red color) Loss of consciousness Severe headache [id number] The [employer] ([employer]). [address] [place] [address]. All rights reserved. This information is not intended as a substitute for professional medical care. Always follow yourhealthcare professional's instructions. Follow Up Care 02/21/2024 18:30:46 With:HECTOR COSTELLO MD Address: [address] [place] [address]- When:2-4 days Comments:Return to ED if symptoms worsen [facility] 01-12-2025 Note Discharge Instructions Thank you for allowing [facility] to assist you with your healthcare needs. The following is importantdischarge information regarding your hospital visit. Diagnosis from Today's Visit Weakness What to Do Next Instructions from Your Care Team No qualifying data available. Post Acute Orders No qualifying data available. You Need to Schedule the Following Appointments Follow Up with HECTOR COSTELLO MD When:Within 2-4 days Where:[address] [place], [place] [id number]- Additional Information: Return to ED if symptoms worsen Allergies NKA Medications Please ask your primary doctor or pharmacist before taking any other medication not listed, including over the counter drugs, herbal medications, vitamins and or supplements as they may interact withyour home medications. Please take this list to your next doctor s visit. Bring all medications you take, including over the counter medications, herbals and other supplements with you to your doctor s visit. Patients and families are reminded to discard old lists and to update any records with all medication providers or retail pharmacies. Education Materials Weakness with Uncertain Cause Based on your exam today, the exact cause of your weakness is not certain. But your weakness does not seem to be a sign of a serious illness at this time. Keep an eye on your symptoms and get medicaladvice as instructed below. Home care Rest at home today. Don't over-exert yourself. Take any medicine as prescribed. For the next few days, drink extra fluids (unless your healthcare provider wants you to restrict fluids for other reasons). Don't skip meals. Unless otherwise directed, continue to take any prescription medicines. Contact your healthcare provider if you have any questions or concerns. Follow-up care Follow up with your healthcare provider, or as advised. When to seek medical advice Call your healthcare provider right away for any of the following: Symptoms get worse Symptoms don't start getting better within 2 days Fever of 100.4 F (38 C) or higher, or as directed by your healthcare provider Call 911 Call 911 for any of these: Chest, arm, neck, jaw, or upper back pain Trouble breathing Numbness or weakness of the face, one arm, or one leg Slurred speech, confusion, or trouble speaking, walking, or seeing Blood in vomit or stool (black or red color) Loss of consciousness Severe headache [phone] The [employer] ([employer]). [address] [place] [address]. All rights reserved. This information is not intended as a substitute for professional medical care. Always follow yourhealthcare professional's instructions. Additional Information VACCINATE! IT SAVES LIVES! Members of the community who have not yet received the COVID-19 vaccine and would like to receive it can visit one of [facility] vaccine clinics. There are many vaccine clinic locations within the [facility]. For locations and available times, please visit www.[email or web address].[email or web address]/. It is important to note that some COVID mobile vaccine clinics are held outdoors and may be canceled in rainy or stormy conditions. To learn more about pediatric vaccinations (ages 5-11), we invite you to visit the [facility] webpage. [email or web address]/[email or web address] [email or web address] learn more about the COVID-19 vaccine, we invite you to visit the CDC website for a list of frequently asked questions. https://www.cdc.gov/coronavirus/2019-ncov/vaccines/faq.html [facility] Patient Portal Access Instructions: Stay connected with your healthcare team and access your personal medical information anytime with the [employer] Patient Portal. If you would like a full copy of your medical records please contact the [facility] Medical Records Department Thursday through Thursday between 8a.m. and 4:30p.m. Please follow the directions below to access the portal: 1.Access the email account you provided upon registration to the [facility].2.Look for an invitation email from [facility].3.Open the email and access the invitation link: Accept Invitation to [facility]4.Fill in the required villanueva to create your account. Sign into [email or web address] with your username and password that you [...] you will allow to register on the [employer] Patient Portal for access to your information. You can also access the [facility] Patient Portal on the [employer]. Simply click on Health Records under [employer] and then click on the [employer] logo. [...] Call your local pharmacy or go to [email or web address] to find one close to you.3.Make use of household items: Use cat litter or old coffee grounds to dispose medications if other options arenot available. Mix your drugs with these household products, seal them in an airtight container andthrow it into the garbage. Call [facility]: [phone] to be sure your drugs can be [...] drowsiness, such as benzodiazepines, also known as benzos,including diazepam and alprazolam, muscle relaxants or sleep aids. Never sell or share prescriptionopioids. This is illegal. Store opioids in a secure place and out of reach of others (including children, family, friends and visitors). The last page(s) of this document has been signed and retained as a CHART COPY Signatures Patient Education Materials Weakness (Uncertain Cause) Medication Leaflets My discharge plan and instructions have been reviewed and explained to me and I,JOANN SANCHEZtand my current condition and have read and understand these discharge instructions. I have received a written copy of the plan/instructions. If I have questions, I am aware that I should contact my doctor. Patient/Fagot Heater Signature: Date/Time: Relationship to Patient: Witness Name/Signature: Date/Time: [facility]01-12-2025 Note* Exam Date Time Procedure Performing Provider Status 02/21/24 7:[address] Head or Brain w/o Contrast MARKO DANIEL MD; Auth (Verified) [id number] ORIGINAL EXAMINATION: CT OF THE HEAD WITHOUT CONTRAST 02/21/2024 7:29 pm TECHNIQUE: CT of the head was performed without the administration of intravenous contrast. Automated exposure control, iterative reconstruction, and/or weight based adjustment of the mA/kV was utilized to reduce the radiation dose to as low as reasonably achievable. COMPARISON: CT head November 01, 2021 HISTORY: ORDERING SYSTEM PROVIDED HISTORY: Reason for Exam: Confusion FINDINGS: BRAIN/VENTRICLES: There is no acute intracranial hemorrhage, mass effect or midline shift. No abnormal extra-axial fluid collection. The jimenez-white differentiation is maintained without evidence of an acute infarct. There is no evidence of hydrocephalus. There are nonspecific hypoattenuating foci in the subcortical and periventricular white matter that most likely represent chronic microangiopathic ischemic changes in a patient of this age. Parenchymal volume loss. ORBITS: The visualized portion of the orbits demonstrate no acute abnormality. SINUSES: The visualized paranasal sinuses and mastoid air cells demonstrate no acute abnormality. SOFT TISSUES/SKULL: No acute abnormality of the visualized skull. IMPRESSION: No acute intracranial abnormality. Interpreted by: Marko Daniel Preliminary Report By: Marko Daniel Electronically signed By Marko Daniel Dictated Date: 02/21/2024 7:35:38 PM Prelim Date: 02/21/2024 7:37:12 PM Sign Date: 02/21/2024 7:37:12 PM Ordering Provider: [facility]01-12-2025 Note* Exam Date Time Procedure Performing Provider Status 02/21/24 7:27 PM XR Chest 1 View MARKO DANIEL MD; [facility] (Verified) [id number] ORIGINAL EXAMINATION: ONE XRAY VIEW OF THE CHEST 02/21/2024 7:28 pm COMPARISON: Radiograph of the chest November 27, 2022 HISTORY: ORDERING SYSTEM PROVIDED HISTORY: Reason for Exam: Altered mental status FINDINGS: Cardiomediastinal silhouette is unchanged in size. Costophrenic angles are sharp. No radiographic pneumothorax. Similar appearing interstitial markings. Left upper lobe calcified granulomas. Osseous structures grossly unchanged. IMPRESSION: No focal consolidation. Interpreted by: Marko Daniel Preliminary Report By: Marko Daniel Electronically signed By Marko Daniel Dictated Date: 02/21/2024 7:37:22 PM Prelim Date: 02/21/2024 7:37:55 PM Sign Date: 02/21/2024 7:37:55 PM Ordering Provider: KATEY KUMARI [facility]01-12-2025 Note* Exam Date Time Procedure Performing Provider Status 02/21/24 6:43 PM EKG [ED AOH] - CV KATEY KUMARI MD; A [facility] (Verified) ECG Final Report Sinus rhythm Left axis deviation Anteroseptal infarct, old Electronic Signature: KATEY KUMARI MD 02/21/2024 19:04:57 [facility]12-20-2024 Telephone encounter Note* Telephone Encounter - Autumn Lozoya MA - 01/29/2024 12:49 PM EST Form has been faxed to number below. Autumn Lozoya MA [facility]12-20-2024 Miscellaneous Notes* Telephone Encounter - Autumn Lozoya MA - 01/29/2024 12:49 PM EST Form has been faxed to number below. Autumn Lozoya MA * Telephone Encounter - Hector Costello MD - 01/28/2024 5:05 PM EST Form done Hector Costello MD * Telephone Encounter - Vonnie Andres MA - 01/28/2024 3:46 PM EST Forms received and on PCP's desk. Vonnie Andres MA * Telephone Encounter - Angelica Sanchez RN - 01/28/2024 3:17 PM EST Annie calling from [employer] to state she will be faxing over [employer] Forms for insurance for the new . PCP can review and complete if patient meets criteria on the form, as pt's NANCY was 12/04/22 and NOV is 04/01/24. For questions, Steph can be contacted at [phone] EXT [phone]. Angelica Sanchez RN [facility] Telephone encounter Note * Telephone Encounter - Hector Costello MD - 01/28/2024 5:05 PM EST Form done Hector Costello MD [facility]12-19-2024 Telephone encounter Note* Telephone Encounter - Vonnie Andres MA - 01/28/2024 3:46 PM EST Forms received and on PCP's desk. Vonnie Andres MA [facility]12-19-2024 Telephone encounter Note* Telephone Encounter - Angelica Sanchez RN - 01/28/2024 3:17 PM EST Annie calling from [employer] to state she will be faxing over [employer] for insurance for the . PCP can review and complete if patient meets criteria on the form, as pt's NANCY was 12/04/22 and NOV is 04/01/24. For questions, Steph can be contacted at [phone] EXT [phone]. Angelica Sanchez RN [facility]10-26-2023 History of Present illness Narrative* Hector Costello MD - 12/04/2022 2:20 PM EDT Chief Complaint Patient presents with: Hospital F/U: [facility]-fever and mental status change HPI Joann Sanchez is a 82 year old female who presents here today for Hospital Discharge Follow up.. Not a TCM. Unsure if she has an advanced directive. Here with her daughter who is her POA, Esha Rene. Depression screening tool completed and reviewed. Based on score and interview, patient is not at risk for depression. Screening tool discussed with patient, and I recommended no further interventionat this time Smokes, enjoys smoking, will not quit. Pt was brought into the [facility] ER on 11/27/22 by EMS for altered mental status and fever.She didn't know the year, who the president [...] 0.9. Recommended that she have her creatinine levelrechecked. She still has some right side abdominal pain off and on, rated 2/10, sore or tender. Is not severe pain. It only lasts a short time then resolves. Denies any n/v/d or any urinary sx. 82-year-old female with past medical history of tobacco use and rheumatoid arthritis. Presented to [facility] emergency department on 11/27/22 with confusion and fever. EMS was called by her . Was intermittently confused on presentation which is not normal for her. Patient was not surewhy the ambulance was called. On presentation; noted [...] Cancer Screening Discontinued Data reviewed Records from [facility] from 11/27/22 to 11/28/22 ASSESSMENT/PLAN: 1. Hospital [...] Past Histories independently gathered by the clinical technical support intern and the remaining scribed note accurately describes my personal service to the patient. Medical Decision Making: Problems: Low: Acute, uncomplicated illness or injury and Stable chronic illness Moderate: New problem with uncertain prognosis Data: Unique test(s) ordered: 1 Risk: Moderate: Drug management Medical Decision Making Level: 4 - Moderate Hector Costello MD The documentation for this note was completed by Vonnie Andres Ma acting as scribe for Hector Costello MD. December 04, 2022 2:39 PM. Vonnie Andres Ma documented in this encounterK[facility]23 Note. MICRO - Microbiology PROCEDURE: Blood Culture (bacterial) [...] Locations *1: This test was performed at: [address], [address] [place] [address] ([facility]12-02-2022 Note. MICRO - Microbiology PROCEDURE: Blood Culture (bacterial) [...] Locations *1: This test was performed at: [address], [address] [place] [address] ([place])11-29-2022 Note. MICRO - Microbiology PROCEDURE: Urine Culture [...] Locations *1: This test was performed at: [facility], [address] [place] [address], [facility] ([place])11-28-2022 Hospital Discharge instructions Patient Education 11/28/2022 16:16:22 [...] friend for help if needed. Medicines Take ebqs-oqt-vipxzwo and prescription medicines only as told by [...] day care, extended care programs, or a assisted facility. The person's health care provider may [...] 03/05/2005 Document Revised: 01/28/2018 Document Reviewed: 01/28/2018 [employer] Patient Education 2020 [employer] 11/28/2022 16:16:16 COVID-19 COVID-19 COVID-19 is [...] to fight infection (immunocompromised). Live in a fpc or long-term care facility. Have a long-term [...] managed at home with rest, fluids, and rnfp-whm-zvioznp medicines. Treatment for a serious infection usually [...] are safe for you. General instructions Take vmdz-xaz-civgyaf and prescription medicines only as told by [...] water are not available, usean alcohol-based hand grove worker. ?Avoid touching your mouth, face, eyes, or [...] water are not available, use alcohol-based hand grove worker. Stay away from other members of your [...] have a weak immunity, live in a fpc, or have chronic disease. There is no [...] 03/03/2019 Document Revised: 06/23/2019 Document Reviewed: 03/03/2019 ElseMy Point...Exactly Patient Education 2019 [employer] Follow Up Care 11/27/2022 17:02:09 With:HECTOR COSTELLO MD Address: [address] [place] [address]- When:12/04/2022 14:20:00 Comments:This is your post-hospital follow-up appointment. Please arrive at 2:05 PM. Please bring your photoID and insurance card. [facility] 10-20-2023 Note Discharge Instructions Thank you for allowing [facility] to assist you with your healthcare needs. The following is importantdischarge information regarding your hospital visit. Your Care Team HECTOR COSTELLO MD, MICHAEL APRN Your Diagnosis Altered mental state Altered mental status COVID-19 Fever > 75 years Renal insufficiency Rheumatoid arthritis What to do next Follow Up Appointments Follow Up with HECTOR COSTELLO MD When 12/04/2022 02:20 PM EDT Why: This is your post-hospital follow-up appointment. Please arrive at 2:05 PM. Please bring your photo ID and insurance card. Where: [address] [place] [address]- The Following Activity and Diet Have Been [...] within: 1 week, Results Notify to: HECTOR COSTELLO MD, 11/28/22 15:51:00 EDT Discharge Radiology No [...] friend for help if needed. Medicines Take qors-fdl-rnhqnmg and prescription medicines only as told by [...] day care, extended care programs, or a assisted facility. The person's health care provider may [...] 03/05/2005 Document Revised: 01/28/2018 Document Reviewed: 01/28/2018 [employer] Patient Education 2020 [employer] COVID-19 COVID-19 is a respiratory infection [...] to fight infection (immunocompromised). Live in a fpc or long-term care facility. Have a long-term [...] managed at home with rest, fluids, and ozca-dkw-sctktgg medicines. Treatment for a serious infection usually [...] are safe for you. General instructions Take xcda-vwl-bqgzkzh and prescription medicines only as told by [...] high-risk areas and travel restrictions, check the [facility] travel website: wwwnc.cdc.gov/travel/notices If you live in, or must travel to, an area where COVID-19 is a risk, take precautions to avoid infection. ? Stay away from people who are sick. ? Wash your hands often with soap and water for 20 seconds. If soap and water are not available, use an alcohol-based hand grove worker. ? Avoid touching your mouth, face, eyes, [...] water are not available, use alcohol-based hand grove worker. Stay away from other members of your [...] have a weak immunity, live in a fpc, or have chronic disease. There is no [...] 03/03/2019 Document Revised: 06/23/2019 Document Reviewed: 03/03/2019 ElseMy Point...Exactly Patient Education 2019 [employer] Additional Information VACCINATE! IT SAVES LIVES! Members of the community who have not yet received the COVID-19 vaccine and would like to receive it can visit one of [facility] vaccine clinics. There are many vaccine clinic locations within the [facility]. For locations and available times, please visit https://gettheshot.coronavirus.[place].gov/. It is important to note that some COVID mobile vaccine clinics are held outdoors and may be canceled in rainy or stormy conditions. To learn more about pediatric vaccinations (ages 5-11), we invite you to visit the [facility] webpage. https://www.[facility].org/pages/4873-Dwbje-Yqsvoanpdce-Fupdlqxjxl-Qjddb-Tjb stions.htmlTo learn more about the COVID-19 vaccine, we invite you to visit the CDC website for a list of frequently asked questions.https://www.cdc.gov/coronavirus/2019-ncov/vaccines/faq.html [employer] Patient Portal Access Instructions: Stay connected with your healthcare team and access your personal medical information anytime with the [employer] Patient Portal. Please follow the directions below to create your [facility] account: 1.Access the email account you provided upon registration to the hospital/physician office.2.Look for an invitation email from [facility].3.Open the email and access the invitation link: AcceptInvitation to [facility] [employer].4.Fill in the required villanueva to create your account. To access your account, visit [employer]/American Hometown MediaOneChart. Click the blue button labeled Access Patient Portal and then log in with the username and password that you created in the steps above. You will be able to view your test results, lab results, a summary of your visits, upcoming appointments and more. There is also a convenient messaging option where you can send secure messages to your p Certified Security Solutionsvider. In addition, you will have the ability to download any documents or summaries to your computer and/or send the information securely to a physician. Remember that your healthcare information is confidential, so carefully consider who you will allowto register on the [facility] Patient Portal for access to your information. You can also access the [facility] Patient Portal on the [facility] [employer] tracy. Simply click on Patient Portal and then log into your account. If you would like to receive a full copy of your medical records, please contact the [facility] Medical Records Department by calling [phone], Thursday through Thursday between 8 a.m. and [...] Call your local pharmacy or go to http://AlpineReplay.ShipServ/9L5Nu1e to find one close to you.3.Make use of household items: Use cat litter or old coffee grounds to dispose medications if other options arenot available. Mix your drugs with these household products, seal them in an airtight container andthrow it into the garbage. Call [facility]: [phone] to be sure your drugs can be [...] reviewed and explained to me and I,JOANN SANCHEZtand my current condition and have read and understand these discharge instructions. I have received a written copy of the plan/instructions. If I have questions, I am aware that I should contact my doctor. Patient/Fagot Heater Signature: Date/Time: Relationship to Patient: Witness Name/Signature: Date/Time: [facility]10-20-2023 Evaluation + Plan noteExtracted from: Title:History and Physical Author:XENIA TERRELL MOVEMENT ASSEMBLY FINAL INSPECTOR-SALVAGE GRINDER Date:11/28/22 1. COVID-19 2. Altered mental status 3. [...] the bedside, discussed with over the phone. [facility] 10-20-2023 History and physical note Date of Service 11/28/2022 Chief Complaint brought in by EMS for altered mental status, fever History of Present Illness 82-year-old female with a past medical history of tobacco use and rheumatoid arthritis. Presented to [facility] emergency department On 11/27/2022 with confusion [...] by DAVID TERRELL on 11/28/2022 10:50 AM [facility]10-20-2023 Discharge summary Date of Service 11/28/2022 Discharge Diagnosis Altered mental status ([id number] - PNED) Fever > 75 years ([id number] - PNED) COVID-19 Renal insufficiency Additional Orders: [...] tobacco use and rheumatoid arthritis. Presented to [facility] emergency department On 11/27/2022 with confusion [...] tablet) Follow Up Follow Up with HECTOR COSTELLO MD When 12/04/2022 02:20 PM EDT Why: This is your post-hospital follow-up appointment. Please arrive at 2:05 PM. Please bring your photo ID and insurance card. Where: [address] [place] [address]- Follow Up Appointments No qualifying data available. [...] by DAVID TERRELL on 11/28/2022 10:52 AM [facility]10-19-2023 Note ORIGINAL EXAMINATION: TWO XRAY VIEWS [...] resident's findings and interpretation. Interpreted by: Pietro Arreola Preliminary Report By: David Gomez Electronically signed By Pietro Arreola Dictated Date: 11/27/2022 6:28:44 PM Prelim Date: 11/27/2022 6:30:51 PM Sign Date: 11/27/2022 7:56:52 PM Ordering Provider: [facility]ynsey [facility] SARS-CoV-2 (COVID-19) RNA KIRBY+probe Ql (Nph)Positive *ABN* (11/27/22 5:26 PM)AO Auto Urine [id number] Instructions* Patient Instructions * Patricia Galvin APRN.CNP - 10/14/2022 10:34 AM EDT Stay well hydrated, goal of 3, 16 ounces bottles of water per day. Follow up in office if you notice any urinary symptoms or not feeling well. Red flag symptoms go to ER. Follow Up as needed. documented in this encounterK[facility]09-05-2023 History of Present illness Narrative* Patricia Galvin APRN.CNP - 10/14/2022 10:20 AM EDT This is a 82 year old female who presents today with: Patient presents with: Follow Up: ER follow for UTI HISTORY OF PRESENT ILLNESS: Joann Sanchez is a 82 year old female. Patient presents with: Follow Up: ER follow for UTI HOSPITAL/ER FOLLOW UP: Reason for visit: Confusion and weakness Which facility: [facility] Date of visit: 09/07/2022 Diagnosis: UTI Testing [...] Laterality Date COLONOSCOP W/ OR W/O [facility] SPEC 10/20/2007 Colonoscopy REMOVAL GALLBLADDER 1997 [...] effects were discussed and patient voices understanding. Patricia Galvin APRN.YOLANDA This note was partially generated using [employer] voice recognition system. Note was reviewed for accuracy. There may be minor misspellings or grammar miscues with [employer] voice recognition. documented in this encounterKettering [facility]08-23-2023 History of Present illness Narrative* Kianna Pagan - 10/01/2022 9:08 AM EDT POPULATION HEALTH NAVIGATION OUTREACH Action/ 1st attempt: Left message for patient including my direct number HCC GAPS I73.9 - PVD (peripheral vascular disease) (HCC) - [id number] Last Billed 12/27/2020 J43.8 - Other emphysema (HCC) - [id number] Last Billed 12/27/2020 M05.741,M05.742 - Rheumatoid arthritis involving both hands with positive rheumatoid factor ([facility]) -[id number] Last Billed 12/27/2020 M05.9 - Rheumatoid arthritis with positive rheumatoid factor (HCC) - [id number] Last Billed 12/27/2020 Care Gaps Annual Wellness visit Controlling Blood Pressure Patient Identified by Name and : NO Outreach Outcome/Action Unable to reach patient: Left message Did you use a PCP flex slot to schedule this appointment? N/A Reason for Outreach HCC or suspected condition Payer: [place]or[place] [facility] [place] Plan: [email or web address] HMO / Product Type: HMO / Care [...] SCREEN due on 02/21/2022 Navigation Signature: Kianna Pagan October 01, 2022 9:08 AM documented in this encounterKet[facility]08-02-2023 Note. MICRO - Microbiology PROCEDURE: Urine Culture [...] Locations *1: This test was performed at: [facility], [address] [place] [address], [facility] ([place])09-07-2022 Hospital Discharge instructions Patient Education 09/07/2022 18:39:52 [...] swelling in the outer vaginal area (labia) 1532-1258 The IDRI (Infectious Disease Research Institute). [address] [place] [address]. All rights reserved. This information is not intended as a substitute for professional medical care. Always follow yourhealthcare professional's instructions. Follow Up Care 09/07/2022 15:18:48 With:HECTOR COSTELLO MD Address: [address] [place] [address]- When:2-4 days [facility] 07-30-2023 Note Discharge Instructions Thank you for allowing [facility] to assist you with your healthcare needs. The following is importantdischarge information regarding your hospital visit. Diagnosis from Today's Visit Altered mental status What to Do Next Instructions from Your Care Team No qualifying data available. Post Acute Orders No qualifying data available. You Need to Schedule the Following Appointments Follow Up with HECTOR COSTELLO MD When Within 2-4 days Where: [address] [place] [address]- Allergies NKA Medications Please ask your primary [...] may report side effects to FDA at 2-523-IQN-8345. What other drugs will affect cephalexin? Tell your doctor about all your other medicines, especially: metformin; or probenecid. This list is not complete. Other drugs may affect cephalexin, including prescription and znbx-nfs-vsfsefh medicines, vitamins, and herbal products. Not all [...] to ensure that the information provided by [employer]. ('[employer]') is accurate, up-to-date, and complete, but no guarantee is made to that effect. Drug information contained herein may be time sensitive. [employer] information has been compiled for use by healthcare practitioners and consumers in the [place] and therefore [employer] does not warrant that uses outside of the [place] are appropriate, unless specifically indicated otherwise. [employer] drug information does not endorse drugs, diagnose patients or recommend therapy. [employer]Contacts drug information isan informational resource designed to [...] effective or appropriate for any given patient. [employer] does not assume any responsibility for any aspect of healthcare administered with the aid of information [employer] provides. The information contained herein is not intended to cover all possible uses, directions, precautions, warnings, drug interactions, allergic reactions, or adverse effects. If you have questions about the drugs you are taking, check with your doctor, nurse or pharmacist. Copyright 6212-9937 [employer]. Version: 10.03. Revision Date: 02/13/2020. Education Materials [...] swelling in the outer vaginal area (labia) 1233-2140 The IDRI (Infectious Disease Research Institute). [address] [place] [address], [place] [address]. All rights reserved. This information is not intended as a substitute for professional medical care. Always follow yourhealthcare professional's instructions. Additional Information VACCINATE! IT SAVES LIVES! Members of the community who have not yet received the COVID-19 vaccine and would like to receive it can visit one of [facility] vaccine clinics. There are many vaccine clinic locations within the [facility]. For locations and available times, please visit www.gettheshot.coronavirus.[place].gov/. It is important to note that some COVID mobile vaccine clinics are held outdoors and may be canceled in rainy or stormy conditions. To learn more about pediatric vaccinations (ages 5-11), we invite you to visit the [facility] webpage. https://www.[facility].org/pages/9528-Bzklh-Qvrmzxvmhmv-Mdagbusqll-Jjxxm-Hhf stions.htmlTo learn more about the COVID-19 vaccine, we invite you to visit the CDC website for a list of frequently asked questions. https://www.cdc.gov/coronavirus/2019-ncov/vaccines/faq.html [facility] Patient Portal Access Instructions: Stay connected with your healthcare team and access your personal medical information anytime with the [facility] Patient Portal. If you would like a full copy of your medical records please contact the [facility] Medical Records Department Thursday through Thursday between 8a.m. and 4:30p.m. Please follow the directions below to access the portal: 1.Access the email account you provided upon registration to the hospital.2.Look for an invitation email from [facility].3.Open the email and access the invitation link: Accept Invitation to [facility]4.Fill in the required villanueva to create your account. Sign into [email or web address] with your username and password that you [...] you will allow to register on the [facility] Patient Portal for access to your information. You can also access the [facility] Patient Portal on the [employer]. Simply click on Health Records under J.A.B.'s Freelance Worldta and then click on the Ver[employer] logo. [...] Call your local pharmacy or go to http://AlpineReplay.ShipServ/4U8Le3r to find one close to you.3.Make use of household items: Use cat litter or old coffee grounds to dispose medications if other options arenot available. Mix your drugs with these household products, seal them in an airtight container andthrow it into the garbage. Call [facility]: [phone] to be sure your drugs can be [...] drowsiness, such as benzodiazepines, also known as benzos,including diazepam and alprazolam, muscle relaxants or sleep aids. Never sell or share prescriptionopioids. This is illegal. Store opioids in a secure place and out of reach of others (including children, family, friends and visitors). The last page(s) of this document has been signed and retained as a CHART COPY Signatures Patient Education Materials Bladder Infection, Female (Adult) Medication Leaflets cephalexin My discharge plan and instructions have been reviewed and explained to me and I,FENCSIK, JOANN Aunderstand my current condition and have read and understand these discharge instructions. I have received a written copy of the plan/instructions. If I have questions, I am aware that I should contact my doctor. Patient/Fagot Heater Signature: Date/Time: Relationship to Patient: Witness Name/Signature: Date/Time: [facility]07-30-2023 Evaluation + Plan note Diagnostic Tests Pending * Urine Culture 09/07/22 [facility] 09-24-2022 Hospital Discharge instructions Patient Education 11/02/2021 12:07:55 Urinary Tract Infection, Ansi-sg-Jajk Urinary Tract Infection A urinary tract infection [...] Document Reviewed: 08/26/2012 ExitCare Patient Information 2015 [employer]. This information is not intended to replace advicegiven to you by your health care provider. Make sure you discuss any questions you have with your health care provider. Follow Up Care 11/01/2021 17:45:07 With:HECTOR COSTELLO MD Address: [address] [place] [address]- When:5 to 7 days Comments:post-hospitalization follow-up [facility] 09-24-2022 Evaluation + Plan noteExtracted from: Title:History and Physical Author:CHIKIS FUENTES APRN-SALVAGE GRINDER Date:11/02/21 1. Urinary tract infection Acute, new [...] Urine Culture 11/01/21 * Mycoplasma Antibody 11/02/21 [facility] 09-24-2022 Nurse Progress note Patient discharge instructions. IV discontinued No issues or concerns Patient has script at pharmacy. Instructed patient on the omportance to taking medication until completion. Patient expressed concern that she can not swallow pills and must have the liquid form. Contacted [facility]LAST[facility]JECTION [facility] and new script was sent to pharmacy for mixing picker tender. IV discontinued and there were no issues or concerns Family on the way to mixing picker tender the patient Digitally Signed by Chikis Wall RN on 11/02/2021 12:58 PM [facility] Veritoannette [id number] Note Discharge Instructions Thank you for allowing [facility] to assist you with your healthcare needs. The following is importantdischarge information regarding your hospital visit. Your Care Team HECTOR COSTELLO MD Your Diagnosis Urinary tract infection CAP [...] that your infection resolves. Follow-up with Dr. Costello in the next 1-2 weeks for post-hospitalization follow-up. Return to the ED with any new or concerning symptoms. Follow Up Appointments Follow Up with HECTOR COSTELLO MD When Within 5 to 7 days Why: post-hospitalization follow-up Where: [address] [place] [address]- The Following Activity and Diet Have Been [...] 12 hours Duration: 5 Days Pickup at [facility]/pharmacy #4605 Unchanged alendronate (Fosamax 70 mg oral tablet) 1 tab(s) by mouth Every day Unchanged etanercept (Enbrel 25 mg subcutaneous kit) See instructions Subcutaneous 1xweek Unchanged meloxicam (meloxicam 7.5 mg/ 5 mL oral suspension) 5 Milliliter by mouth Once a day Unchanged methotrexate (methotrexate 2.5 mg oral tablet) Pharmacy Information [facility]/pharmacy #[id number]: [address], [place] [id number] [phone] Please take this list to your next [...] Document Reviewed: 08/26/2012 ExitCare Patient Information 2015 [employer], [facility]. This information is not intended to replace advicegiven to you by your health care provider. Make sure you discuss any questions you have with your health care provider. Additional Information VACCINATE! IT SAVES LIVES! Members of the community who have not yet received the COVID-19 vaccine and would like to receive it can visit one of [facility] vaccine clinics. There are many vaccine clinic locations within the [facility]. For locations and available times, please visit https://gettheshot.coronavirus.[place].gov/. It is important to note that some COVID mobile vaccine clinics are held outdoors and may be canceled in rainy or stormy conditions. To learn more about pediatric vaccinations (ages 5-11), we invite you to visit the [facility] webpage. https://www.akCrediteras.org/pages/5908-Omjvo-Asyciondaam-Uaosaxakts-Piqao-Wmt stions.htmlTo learn more about the COVID-19 vaccine, we invite you to visit the [employer] website for a list of frequently asked questions. https://Demandware/assets/Rgiyzjrw-llq-Rfvjsttl/tkkkm-Rrokvpe-Ruxlhtxtnt _Asked-Questions.pdf [facility] [employer] Patient Portal Access Instructions: Stay connected with your healthcare team and access your personal medical information anytime with the [employer] Patient Portal.If you would like a full copy of your medical records, please contact the [facility] Medical Records Department, Thursday through Thursday between 8a.m. and 4:30p.m. Please follow the directions below to access the portal: 1.Access the email account you provided upon registration to the hospital.2.Look for an invitation email from [facility].3.Open the email and access the invitation link: Accept Invitation to [facility]4.Fill in the required villanueva to create your account. Sign into [email or web address] with your username and password that you [...] you will allow to register on the [employer] Patient Portal for access to your information. You can also access the [facility] Patient Portal on the DealsNear.me tracy. Simply click on Health Records under Kerad[employer] and then click on the [employer] logo. HOW TO SAFELY DISPOSE OF PRESCRIPTION [...] Call your local pharmacy or go to [email or web address] to find one close to you.3.Make use of household items: Use cat litter or old coffee grounds to dispose medications if other options arenot available. Mix your drugs with these household products, seal them in an airtight container andthrow it into the garbage. Call [facility]: [phone] to be sure your drugs can be [...] Signatures Patient Education Materials Urinary Tract Infection, Okrq-kt-Kwle Medication Leaflets My discharge plan and instructions have been reviewed and explained to me and I,BECKYALMASU JOANN Rosariosudhird my current condition and have read and understand these discharge instructions. I have received a written copy of the plan/instructions. If I have questions, I am aware that I should contact my doctor. Patient/Fagot Heater Signature: Date/Time: Relationship to Patient: Witness Name/Signature: Date/Time: [facility]09-24-2022 Discharge summary Date of Service 11/02/2021 Discharge Diagnosis 1. Urinary tract infection (N39.0 - ICD-10-CM) 2. CAP (community acquired pneumonia) (J18.9 - ICD-10-CM) 3. Weakness or fatigue ([id number] - PNED) 4. Rheumatoid arthritis (M06.9 - [...] cap(s), 0 Refill(s), 11/07/21 12:12:00 EDT, Pharmacy: [facility]/pharmacy #[id number], 162.6, cm, 11/02/21 0:29:00 EDT,Height, 56.8 Hospital Course Patient is a 81-year-old female, who follows with Dr. Hector Costello with a past medical history significant for arthritis and rheumatoid arthritis, presents to [facility] emergency department with the chief complaint [...] Date: November 01, 2021 Verified By: PIETRO ARREOLA MD CLINICAL STATEMENT: IMPRESSION: Probable mild left [...] that your infection resolves. Follow-up with Dr. Costello in the next 1-2 weeks for post-hospitalization [...] tablet) Follow Up Follow Up with HECTOR COSTELLO MD When Within 5 to 7 days Why: post-hospitalization follow-up Where: [address] [place] [address]- Follow Up Appointments No qualifying data available. [...] by CHIKIS FUENTES on 11/02/2021 12:22 PM [facility]09-24-2022 Note Date of Service 11/02/2021 Chief Complaint was weak and fatigued for 2 days History of Present Illness Patient is a 81-year-old female, who follows with Dr. Hector Costello with a past medical history significant for arthritis and rheumatoid arthritis, presents to [facility] emergency department with the chief complaint [...] Date: November 01, 2021 Verified By: PIETRO ARREOLA MD CLINICAL STATEMENT: IMPRESSION: Probable mild left [...] by CHIKIS FUENTES on 11/02/2021 12:22 PM [facility]09-23-2022 Note ORIGINAL EXAMINATION: ONE XRAY VIEW [...] resident's findings and interpretation. Interpreted by: Pietro Arreola Preliminary Report By: Kaitlyn Merinoally signed By Pietro Arreola Dictated Date: 11/01/2021 7:21:36 PM Prelim Date: 11/01/2021 7:25:34 PM Sign Date: 11/01/2021 7:35:59 PM Ordering Provider: KAITLYN MOSLEY [facility]09-23-2022 Note ORIGINAL HISTORY: Altered mental status, [...] Sign Date: 11/01/2021 7:03:38 PM Ordering Provider: KAITLYN WALKER [facility]09-23-2022 Note ORIGINAL HISTORY: Altered mental status, [...] Sign Date: 11/01/2021 7:03:38 PM [facility] Note ORIGINAL EXAMINATION: ONE XRAY VIEW OF [...] resident's findings and interpretation. Interpreted by: Pietro Arreola Preliminary Report By: Kaitlyn Spence Electronically signed By Pietro Arreola Dictated Date: 11/01/2021 7:21:36 PM Prelim Date: 11/01/2021 7:25:34 PM Sign Date: 11/01/2021 7:35:59 PM [facility] SARS-CoV-2 (COVID-19) RNA KIRBY+probe Ql (Nph)Negative *NA* (11/01/21 6:18 PM)AO Auto Urine [id number] Hospital Discharge instructions Patient Education 12/06/2020 12:03:18 COVID-19: How to Protect Yourself and Others - CDC COVID-19: How to Protect Yourself and Others Know how it spreads There is currently no vaccine to prevent coronavirus disease 2019 (COVID-19). The best way to prevent illness is to avoid being exposed to this virus. The virus is thought to spread mainly from kntuhd-pd-meclvp. ?Between people who are in close contact [...] are not readily available, use a hand grove worker that contains at least 60% alcohol. Cover [...] at higher risk of getting very sick.www.cdc.gov/cor onavirus/2019-ncov/zbda-tvjem-bskzhwgxaui/ublixn-co-pledxq-risk.html Cover your mouth and nose with a [...] available, clean your hands with a hand grove worker that contains at least 60% alcohol. Clean and disinfect Clean AND disinfect frequently touched surfaces daily. This includes tables, doorknobs, light switches, countertops, handles, desks, phones, keyboards, toilets, faucets, and sinks. www.cdc.gov/coronav irus/2019-ncov/wilwcim-xrotwda-zemq/iqkioyrapacg-ftzm-dgmh.html If surfaces are dirty, clean them: Use [...] 05/24/2019 Document Revised: 08/18/2019 Document Reviewed: 08/18/2019 ElseMy Point...Exactly Patient Education 2019 [employer] 12/06/2020 12:03:17 COVID-19 Frequently Asked Questions [...] the coronavirus come from? In January 2019, [place] told the World Health Organization (WHO) of several cases of lung disease (human respiratory illness). These cases were linked to an open seafood and livestock market in the city of [facility]. The link to the seafood and livestock [...] and virus naming World Health Organization (WHO): www.who.int/emergencies/diseases/wktlk-fyrkgisgznc-7796/technical-g uidance/vpmnln-edv-djffbxmrnau-disease-(covid-2019)-ojc-lgv-grnke-xyaq-qafxsd-vz Who is at risk for complications from [...] relieve his or her symptoms by using nlnl-wyk-ojkibie medicines that treat sneezing, coughing, and runny [...] water are not available, use alcohol-based hand grove worker. Avoid touching your face, mouth, nose, or [...] Prevention (CDC): www.cdc.gov/coronavirus/2019-ncov/travelers/index.html World Health Organization (WHO): www.who.int/emergencies/diseases/sscfd-djxxxcpxtwq-9341/travel-advice Know the risks and take action to [...] water are not available, use alcohol-based hand grove worker. Cough or sneeze into a tissue, sleeve, [...] in hot, soapy water or use a trucker. Air-dry your dishes. Wash laundry in hot [...] Health Organization (WHO) Information and news updates: www.who.int/emergencies/diseases/sjbck-jiqmewrogxx-1542 Coronavirus health topic: www.who.int/health-topics/coronavirus Questions and answers on COVID-19: www.who.int/news-room/q-a-detail/o-v-emtazsusumcvk Global tracker: LikeBetter.com.cFares [place] [employer] (AAP) Information for families: www.healthychildren.org/Faroese/health-issues/conditions/chest-lungs/Pages /0941-Bfvqa-Qnxlgxetngg.aspx The coronavirus situation is changing rapidly. Check your local health authority website or the CDCand WHO websites for updates and news. When [...] 05/24/2019 Document Revised: 05/24/2019 Document Reviewed: 05/24/2019 [employer] Patient Education 2019 [employer] 12/06/2020 12:03:16 COVID-19 COVID-19 COVID-19 is a [...] to fight infection (immunocompromised). Live in a fpc or long-term care facility. Have a long-term [...] managed at home with rest, fluids, and puvq-bae-hhwalnk medicines. Treatment for a serious infection usually [...] are safe for you. General instructions Take uqqv-xuw-fbbnnze and prescription medicines only as told by [...] water are not available, usean alcohol-based hand grove worker. ?Avoid touching your mouth, face, eyes, or [...] water are not available, use alcohol-based hand grove worker. Stay away from other members of your [...] have a weak immunity, live in a fpc, or have chronic disease. There is no [...] 03/03/2019 Document Revised: 06/23/2019 Document Reviewed: 03/03/2019 [employer] Patient Education 2020 [employer] 12/06/2020 12:03:05 Altered Mental Status Altered Mental [...] the hospital. HOME CARE INSTRUCTIONS Only take dgno-fkv-usvrrqw or prescription medicines for pain, discomfort, or [...] Document Reviewed: 07/16/2010 ExitCare Patient Information 2015 [employer], HDmessaging. This information is not intended to replace advicegiven to you by your health care provider. Make sure you discuss any questions you have with your health care provider. Follow Up Care 12/03/2020 17:46:10 With:HECTOR COSTELLO MD Address: [address] [place] [address]- When:12/27/2020 10:20:00 Comments:This is your post-hospital follow-up appointment. [facility] 10-26-2021 Evaluation + Plan noteExtracted from: [...] patient and family to confirm with patient's canary breeder whether patient can be vaccinated for COVID [...] patient and patient's , Soheila and daughter, Esha. Discussed administering REGEN-COV antibodies to patient, both [...] with patient this afternoon with recommendations of assisted facility at this point. Patient received REGEN-COV without complications. Patient's oxygen did drop to 88% on room air this afternoon, she was placed on 2L nasal cannula. Will start IV remdesivir and dexamethasone. Continue to wean oxygen as tolerated to keep saturations >92%. Patient unable to be discharged home today. Updated patient's , and daughter in depth, all questions answered. [facility] 12-11-2007 History of Past illness Narrative* Problem Noted Date Diagnosed Date Resolved Date Unspecified vitamin D deficiency 01/19/2007 07/23/2007 Overview: See lab 07/16 Elevated blood pressure read ing without diagnosis of hypertension 07/27/2006 01/19/2007 Overview: See note 07/27/06 documented as of this encounter (statuses as of 10/01/2022) [facility]12-11-2007 History of Past illness Narrative* Problem Noted Date Diagnosed Date Resolved Date Unspecified vitamin D deficiency 01/19/2007 07/23/2007 Overview: See lab / Elevated blood pressure read ing without diagnosis of hypertension 07/27/2006 01/19/2007 Overview: See note 07/27/06 documented as of this encounter (statuses as of 10/14/2022) [facility]12-11-2007 History of Past illness Narrative* Problem Noted Date Diagnosed Date Resolved Date Unspecified vitamin D deficiency 01/19/2007 07/23/2007 Overview: See lab 07/16 Elevated blood pressure read ing without diagnosis of hypertension 07/27/2006 01/19/2007 Overview: See note 07/27/06 documented as of this encounter (statuses as of 12/04/2022) [facility] Diagnosis Onset Date Resolution Status Influenza A acute Acute febrile illness resolv ed Encephalopathy resolved SIRS (systemic inflammatory response syndrome) resolved [facility] Work Phone: Evaluation noteNo assessment information available [facility] Work Phone: Evaluation note* Diagnosis Hospital discharge follow-up- Primary Other follow-up examination Acute cystitis without hematuria Acute cystitis documented in this encounter [facility] Diagnosis Hospital discharge follow-up- Primary Other follow-up examination Renal insufficiency Unspecified disorder of kidney and ureter COVID-19 Tobacco use disorder Rheumatoid arthritis involving both hands with positive rheumatoid factor (HCC) Other emphysema (HCC) Other emphysema Peripheral vascular disease, unspecified (HCC) Peripheral vascular disease, unspecified documented in this encounter [facility] course Narrative No data available for this section [facility] Reason for referral (narrative)No reason for referral information availableWPremier Health [facility] Work Phone: Summary Purpose Family History No Family History Records Found Relationship Condition Age at Onset Recorded Date/T isael father Malignant neoplasm Unknown Advance Directives No Advanced Directives Records Found Advance Directive Response Recorded Date/ Time Living Will No March 11 7:26pm Power of Tunnel Miner No March 11, 2021 7:26pm Advance Directive Response Recorded Date/ Time Living Will No March 11 6:26pm Power of Tunnel Miner No March 11, 2021 6:26pm Chief Complaint and Reason for Visit Chief Complaint ACUTE METABOLIC ENCE PHALOPATHY ACUTE METABOLIC ENCEPHALOPATHY S/O- ARTHRITIS/PAIN- COPY PCP S/O COPY PCP/PAIN Reason for Visit Influenza A Acute febrile illness Encephalopathy SIRS (systemic inflammatory response syndrome) Chief Complaint S/O- PAIN COPY PCP S/O- PAIN- COPY PCP Chief Complaint S/O- PAIN- COPY PCP PAIN- COPY PCP Chief Complaint PAIN- COPY PCP PAIN- COPY PCP Chief Complaint PAIN- COPY PCP Chief Complaint Admit Date PAIN- COPY PCP February 05, 2024 9:55am PAIN- COPY PCP/ ADD XRAYS FOR BACK PAIN March 09, 2024 1:45pm BACK PAIN/POST FALL X2WKS PRIOR March 09, 2024 2:11pm PAIN- COPY PCP March 11, 2024 1 2:33pm AGE RELATED OSTEOPOROSIS April 16, 2024 9:46am Reason for Visit Admit Date Acute lumbar myofascial strain February 102024 2:11pm Compression fracture of T10 vertebra Lionel mcdermott 2024 2:11pm Chief Complaint Admit Date PAIN- COPY PCP August 16, 2024 10:43 am Additional Source Comments INFORMATION SOURCE (unrecogn ized section and content) DATE CREATED AUTHOR 10/19/2017 [facility] DATE CREATED AUTHOR AUTHOR'S ORGANIZ ATION 10/19/2017 [facility] DATE CREATED AUTHOR AUTHOR'S ORGANIZ ATION 05/08/2023 [facility] ([place]) DATE CREATED AUTHOR AUTHOR'S ORGANIZ ATION 04/03/2024 [facility] DATE CREATED AUTHOR AUTHOR'S ORGANIZ ATION 05/06/2024 [facility] DATE CREATED AUTHOR AUTHOR'S ORGANIZ ATION 08/26/2024 [facility] Goals (unrecognized section and content) Goals may be documented in a n alternate section Care Team (unrecognized sect ion and content) Care Team Personnel Name: HECTOR COSTELLO MD Member Role: Primary Care Physician Address: Address: [address] [place] [id number] [place] Care Team Related Persons Name: ESHA RENE Address: [facility] Name: SOHEILA SANCHEZ Address: Home [address] [place] [address] [place] Care Teams (unrecognized sec tion and content) Team Status: Active Member Role Status Dates Dr. Hector Costello MD Family Provider Active Dr. Hector Costello MD Primary Care Provider Active Team Status: Inactive Member Role Status Dates Dr. Hector Costello MD Primary Care Provider Active Dr. Nelly Goff MD Attending Provider, Referring Provider Active Brick Tester Relationship Specialty Start Date End Date Hector Costello MD [address] [place] [id number] PCP - General Cardiology 07/25/08 Mark Edward MD [address] [place] [address] Primary Staff Physician Cardiology 04/27/18 Brick Tester Relationship Specialty Start Date End Date Hector Costello MD [address] [place], [place] [id number] PCP - General Cardiology 07/25/08 Mark Edward MD [address] [place] [address] Primary Staff Physician Cardiology 04/27/18 Brick Tester Relationship Specialty Start Date End Date Hector Costello MD [address] [place], [place] [id number] PCP - General Cardiology 07/25/08 Mark Edward MD [address] [place] [address] Primary Staff Physician Cardiology 04/27/18 Brick Tester Relationship Specialty Start Date End Date Hector Costello MD [address] [place], [place] [address] PCP - General Cardiology 07/25/08 Mark Edward MD [address] [place] [address] Primary Staff Physician Cardiology 04/27/18 Patricia Galvin APRN.SALVAGE GRINDER [address] [place] [address] Corporate Compliance Manager Family Medicine 01/17/24 Bernardo Reed APRN.SALVAGE GRINDER [address] [place] [address] Corporate Compliance Manager Family Medicine 01/26/24 Team Status: Active Member Role Status Dates Dr. Tobias Tobar DO Primary Care Provider Active Team Status: Inactive Member Role Status Dates Dr. Hector Costello MD Primary Care Provider Active Start: February 05, 2024 End: February 05, 2024 Dr. Nelly Goff MD Attending Provider Active Start: February 05, 2024 End: February 05, 2024 Dr. Nelly Goff MD Referring Provider Active Start: February 05, 2024 End: February 05, 2024 Team Status: Inactive Member Role Status Dates Dr. Hector Costello MD Primary Care Provider Active Start: March 09, 2024 End: March 09, 2024 Dr. Nelly Goff MD Attending Provider Active Start: March 09, 2024 End: March 09, 2024 Dr. Nelly Goff MD Referring Provider Active Start: March 09, 2024 End: March 09, 2024 ZAID uGy Other Provider Active Star t: March 09, 2024 End: March 09, 2024 Team Status: Inactive Member Role Status Dates Dr. Hector Costello MD Primary Care Provider Active Start: March 09, 2024 End: March 09, 2024 Dr. Hector Costello MD Referring Provider Active Start: March 09, 2024 End: March 09, 2024 ZAID Guy Attending Provider Active Start: March 09, 2024 End: March 09, 2024 Team Status: Inactive Member Role Status Dates Dr. Hector Costello MD Primary Care Provider Active Start: March 11, 2024 End: March 11, 2024 Dr. Nelly Goff MD Attending Provider Active Start: March 11, 2024 End: March 11, 2024 Dr. Nelly Goff MD Referring Provider Active Start: March 11, 2024 End: March 11, 2024 Team Status: Inactive Member Role Status Dates Dr. Zeny Snyder MD Attending Provider Active Start: April 16, 2024 End: April 16, 2024 Dr. Zeny Snyder MD Referring Provider Active Start: April 16, 2024 End: April 16, 2024 Dr. Tobias Tobar DO Primary Care Provider Active Start: April 16, 2024 End: April 16, 2024 Team Status: Active Member Role Status Dates Dr. Tobias Tobar DO Primary Care Provider Active Start: April 18, 2024 Dr. Zeny Snyder MD Attending Provider Active Start: April 18, 2024 Dr. Zeny Snyder MD Referring Provider Active Start: April 18, 2024 Team Status: Inactive Member Role Status Dates Dr. Tobias Tobar DO Primary Care Provider Active Start: April 18, 2024 End: April 18, 2024 Dr. Zeny Snyder MD Attending Provider Active Start: April 18, 2024 End: April 18, 2024 Dr. Zeny Snyder MD Referring Provider Active Start: April 18, 2024 End: April 18, 2024 Team Status: Inactive Member Role Status Dates Dr. Tobias Tobar DO Primary Care Provider Active Start: May 26, 2024 End: May 26, 2024 Dr. Nelly Goff MD Attending Provider Active Start: May 26, 2024 End: May 26, 2024 Dr. Nelly Goff MD Referring Provider Active Start: May 26, 2024 End: May 26, 2024 Team Status: Active Member Role/Relationship Status Dates Dr. Tobias Tobar DO Primary Care Provider Active Team Status: Inactive Member Role/Relationship Status Dates Dr. Tobias Tobar DO Primary Care Provider Active Start: May 26, 2024 End: May 26, 2024 Dr. Nelly Goff MD Attending Provider Active Start: May 26, 2024 End: May 26, 2024 Dr. Nelly Goff MD Referring Provider Active Start: May 26, 2024 End: May 26, 2024 Team Status: Inactive Member Role/Relationship Status Dates Dr. Tobias Tobar DO Primary Care Provider Active Start: August 16, 2024 End: August 16, 2024 Dr. Nelly Goff MD Attending Provider Active Start: August 16, 2024 End: August 16, 2024 Dr. Nelly Goff MD Referring Provider Active Start: August 16, 2024 End: August 16, 2024 Source Comments (unrecognize d section and content) In the event this informatio n is protected by the Federal Confidentiality of Alcohol and Drug Abuse Patient Records regulations: The Federal rules restrict any use of the information to criminally investigate or prosecute any alcohol or drug abuse patient.[facility] Center[facility] the event this information is protected by the Federal Confidentiality of Alcohol and Drug Abuse Patient Records regulations: The Federal rules restrict any use of the information to criminally investigate or prosecute any alcohol or drug abuse patient.[facility] CenterIn the event this information is protected by the Federal Confidentiality of Alcohol and Drug Abuse Patient Records regulations: The Federal rules restrict any use of the information to criminally investigate or prosecute any alcohol or drug abuse patient.[facility] CenterIn the event this information is protected by the Federal Confidentiality of Alcohol and Drug Abuse Patient Records regulations: The Federal rules restrict any use of the information to criminally investigate or prosecute any alcohol or drug abuse patient.[facility] Reason for Visit (unrecogniz ed section and content) Reason Onset Date Comments Population Health Navigation Outreach 10/01/2022 HCC Gaps Reason Comments Follow Up ER follow for UTI Reason Comments Hospital F/U [facility]- er and mental status change Reason Comments [employer] Medicare Forms FOR RECORDS PERTAINING TO PATIENTS WHO ARE [...] BE BASED ON THE PRIMARY CLINICAL RECORDS. [facility]. provides no warranty or guarantee of the accuracy or completeness of information in this document.
[2024-11-11 12:18] LABS: Hematocrit 43.7 % (37-47); Hemoglobin 15.0 g/dL (12.0-15.0); Immature Granulocytes Count 0.020 X10^3/uL (0.0-0.0); Mean Corp Hgb Conc 34.3 g/dL (32-36); Mean Corpuscular Volume 89.9 fL (81-99); Mean Platelet Vol. 11.9 fl (6.2-12.0); NRBC Flagged by Analyzer 0 % (0-5); Platelet Count 200 K/mm3 (150-450); RBC Distribution Width CV 13.0 % (11.6-14.6); RBC Distribution Width SD 42.8 fl (35.1-43.9); Red Blood Count 4.86 M/mm3 (4.2-5.4); White Blood Count 6.5 K/mm3 (4.4-11.0)
[2024-11-11 12:52] LABS: AST(SGOT) 23 U/L (<=31); Alanine Aminotransfer ALT/SGPT 15 U/L (<=34); Albumin, Serum 4.2 g/dL (3.4-4.8); Alkaline Phosphatase 58 U/L (35-104); Anion Gap 10 (5-15); BUN 18 mg/dL (4-19); BUN/Creat Ratio 23.2 RATIO (10-20); Calcium,Total 9.4 mg/dL (7.6-11.0); Carbon Dioxide 24.2 mmol/L (21.0-32.0); Chloride 101 mmol/L (98-108); Globulin 2.6 g/dL (2.2-4.2); Glucose 116 mg/dL (70-99); Potassium 4.3 mmol/L (3.3-5.1)
== END | disposition home or self-care (01) ==
LOC: MTLAB 10:59
PROVIDERS: PCP Family Medicine; Referring Provider Internal Medicine Rheumatology; Visit Provider Internal Medicine Rheumatology
DX: M06.00 Rheumatoid arthritis without rheumatoid factor, unspecified site (principal); M18.12 Unilateral primary osteoarthritis of first carpometacarpal joint, left hand; Z79.899 Other long term (current) drug therapy
CPT/HCPCS: 36415; 80053; 85025

== ENCOUNTER → 2025-01-31 | Outpatient (CLI) | payer MEDICARE, SELFPAY ==
[2025-01-31 12:25] LABS: Hematocrit 46.2 % (37-47); Hemoglobin 15.3 g/dL (12.0-15.0); Immature Granulocytes Count 0.040 X10^3/uL (0.0-0.0); Mean Corp Hgb Conc 33.1 g/dL (32-36); Mean Corpuscular Volume 92.0 fL (81-99); Mean Platelet Vol. 12.3 fl (6.2-12.0); NRBC Flagged by Analyzer 0 % (0-5); Platelet Count 187 K/mm3 (150-450); RBC Distribution Width CV 12.9 % (11.6-14.6); RBC Distribution Width SD 43.4 fl (35.1-43.9); Red Blood Count 5.02 M/mm3 (4.2-5.4); White Blood Count 7.2 K/mm3 (4.4-11.0)
[2025-01-31 13:19] LABS: AST(SGOT) 21 U/L (<=31); Alanine Aminotransfer ALT/SGPT 15 U/L (<=34); Albumin, Serum 4.4 g/dL (3.4-4.8); Alkaline Phosphatase 60 U/L (35-104); Anion Gap 11 (7-18); BUN 19 mg/dL (4-19); BUN/Creat Ratio 21.0 RATIO (10-20); Calcium,Total 10.2 mg/dL (7.6-11.0); Carbon Dioxide 26.3 mmol/L (20.0-29.0); Chloride 102 mmol/L (96-106); Globulin 2.9 g/dL (2.2-4.2); Glucose 117 mg/dL (70-99); Potassium 4.7 mmol/L (3.5-5.1)
== END | disposition home or self-care (01) ==
LOC: MTLAB 10:41
PROVIDERS: PCP Family Medicine; Referring Provider Internal Medicine Rheumatology; Visit Provider Internal Medicine Rheumatology
DX: M06.00 Rheumatoid arthritis without rheumatoid factor, unspecified site (principal); Z79.899 Other long term (current) drug therapy
CPT/HCPCS: 36415; 80053; 85025